=== PATIENT | female | born 1965 | race Caucasian/White ===

== ENCOUNTER 2020-02-20 18:43 | Emergency (ER) | payer BC, SELFPAY ==
[2020-02-20 18:44] VITALS: BP 153/83; PULSE 114; RESP 16; TEMP 36.2; O2SAT 99; BMI 33.3
--- NOTE | 2020-02-20 19:58 | ED.VIS.GEN ---
History of Present Illness Chief Complaint: Abscess Informant: Patient Onset: Days Context: Sudden Onset Timing: Continuous Quality: Pain, swelling and redness Location: Left axilla Current Severity: Mild Maximum Severity: Moderate Worsened by: Palpation and movement of left upper extremity Relieved by: Nothing Associated Symptoms: Pain Narrative: Patient is a 54-year-old woman. She spoke with nurse practitioner who prescribed cephalexin 5 mg twice daily. She denies history of diabetes. She denies history of prior abscess. She denies history medic fever, heart murmur, SBE, he is not immune suppressed. She has no other complaints. Prior similar symptoms: No Recent Illness/Hospitalization: No - Past Medical History (1) No significant past medical history Status: Acute Past Medical History - Allergies and Home Meds Allergies/Adverse Reactions: Allergies acetaminophen [From Vicodin] Allergy (Verified 02/20/20 18:44) Hives hydrocodone [From Vicodin] Allergy (Verified 02/20/20 18:44) Hives Primary Care Physician: Rodolfo Velásquez MD [Primary Care Provider] - Prior records reviewed: No Surgical History: noncontributory Lives: Alone Smoking Status: Former smoker Alcohol: Rare Drugs: None Review of Systems General: Denies: Chills, Fever, Malaise, Sweats Cardiovascular: Denies: Chest pain, Palpitations Respiratory: Denies: Dyspnea, Cough, Dyspnea on exertion Gastrointestinal: Denies: Nausea, Vomiting Musculoskeletal: Denies: Myalgias, Arthralgias, Neck pain, Back pain, Swelling, Extremity Pain, -, - Skin: Reports: Rash, Abscess. Denies: Abrasions, Wounds Hematologic: Denies: Easy bruising, Easy bleeding Allergy: Denies: Uticaria, Swelling of the mouth, Swelling of the tongue Physical Exam Vital Signs/Narrative: Vital Signs Temp Pulse Resp BP Pulse Ox 02/20/20 18:44 97.1 F L 114 H 16 153/83 H 99 Inital Vital Signs reviewed: Yes General: Well nourished, Well developed, Obese, No Acute Distress Head: Normocephalic, Atraumatic Eyes: Perrl, EOMI. Negative for: Pale conjunctiva, Scleral icterus Neck: Supple, Nontender, No lymphadenopathy, No JVD Cardiovascular: Regular rhythm, No murmurs, Normal S1, Normal S2, Tachycardia Respiratory: No distress, CTA bilaterally, Chest nontender Extremities: Nontender, No edema, - - There is evidence of cellulitis with abscess left axilla. There is involvement of the tail of the breast. Skin: Normal color, Rash. Negative for: Cyanosis, Diaphoresis Neurological: Alert, Oriented x3, Cranial nerves II-XII grossly intact, Normal Strength, Normal Sensation Psychological: Normal affect Diagnostic/Tx/Re-eval - Medical Decision Making Patient has abscess with cellulitis of the left axilla. Suspect MRSA. Patient was informed this benefits of I&D. She did consent. Area was prepped draped sterile manner. The area was [employer] by local patrician field block. After 15 minutes past she was assessed for effectiveness of block. She had no sensation to needle prick. Incision was made with a 10 blade. Incision is 2.5 cm in length. There are pockets of pus consistent with staph infection. Diameter of cavity 5 cm. The cavity was irrigated. A wick was placed. Bactrim was prescribed. She was instructed to continue taking the cephalexin. She was instructed to see her primary care doctor for wound check on Sunday. Procedures Procedure(s): I&D of left axillary abscess ED Disposition - Plan for ED Patient: Disposition: Home or Assisted Living Diagnosis: cellulitis absces left axilla Instructions: ED Abscess Incision And Drainage, ED Cellulitis Prescriptions: Smz/Tmp Ds [Bactrim Ds] 1 tab PO BID #14 tab Prescription Printed Referrals: Rodolfo Velásquez MD [Primary Care Provider] - 2 Days for wound check
[2020-02-20] MEDS: Smz/Tmp Ds Tablet 1 TABLET PO (20:16)
[2020-02-20] MEDS: Naproxen 250 MG Tablet 500 MG PO (20:16)
[2020-02-20 20:35] VITALS: BP 140/80; PULSE 70; RESP 16; O2SAT 98
== END 2020-02-20 20:36 | disposition home or self-care (01) ==
PROVIDERS: Emergency Provider Emergency Medicine; PCP Family Medicine
DX: L02.412 Cutaneous abscess of left axilla (principal); L03.112 Cellulitis of left axilla; E66.9 Obesity, unspecified; Z79.2 Long term (current) use of antibiotics; Z87.891 Personal history of nicotine dependence
CPT/HCPCS: 10060; 99282

== ENCOUNTER 2020-05-26 03:32 | Inpatient (IN) | payer BC, SELFPAY ==
[2020-05-26] VITALS (14 sets, daily range): BP systolic 113–173; BP diastolic 53–69; PULSE 88–105; RESP 16–31; TEMP 36.6–37.8; O2SAT 83–96; BMI 31.6; BMI 31.3
--- NOTE | 2020-05-26 03:41 | EKG12_ITS ---
Test Reason : GEN ILLNESS Blood Pressure : / mmHG Vent. Rate : 104 BPM Atrial Rate : 104 BPM P-R Int : 138 ms QRS Dur : 070 ms QT Int : 320 ms P-R-T Axes : 069 025 059 degrees QTc Int : 420 ms Sinus tachycardia Low voltage QRS Borderline ECG Confirmed by LESTER CAICEDO, YELITZA ([id number]), scientific publications editor JAZMYNE JEFF ([id number]) on 06/02/2020 10:28:03 AM Referred By: MATHEW Confirmed By:ROBER BATISTA MD
--- NOTE | 2020-05-26 03:41 | RAD_ITS ---
STUDY: X-RAY CHEST REASON FOR EXAM: Female, 55 years old. Covid positive infection 05/22/2012. Cough with deep inspiration. TECHNIQUE: AP portable chest. COMPARISON: None. FINDINGS: Patchy bilateral perihilar and bibasilar opacities. No effusions. No pneumothorax. Normal size heart. Normal mediastinum and lillie. Normal visualized pulmonary arteries. Normal visualized aortic arch and descending thoracic aorta. Normal visualized thoracic spine. Normal visualized ribs, clavicles, and shoulders. There is no demonstrated abnormality of the visualized soft tissue structures of the upper abdomen. RAD/Chest 1 View (Portable) IMPRESSION: Multifocal pneumonia to include viral pneumonia. Electronically Signed: Forrest Cee MD at 4:28 EST , Service support ,
--- NOTE | 2020-05-26 03:44 | ED.DCSUM_ITS ---
History of Present Illness Chief Complaint: General Illness Detail of Chief Complaint: Dehydration Informant: Patient Onset: Days Narrative: Patient presents due to concerns for dehydration. She developed Covid symptoms on the 10th and had a positive test on the . Patient reports having very dry mouth. Anytime she tries to eat she gets nauseated and vomits. She notes her urine is very dark. She has lost smell and taste. She has been running fevers up to 103. On arrival to the emergency room her O2 sat was 83% on room air. In spite of this patient had not been complaining of significant shortness of breath. She reports only minimal cough. - Past Medical History (1) GERD (gastroesophageal reflux disease) Status: Chronic Past Medical History - Allergies and Home Meds Allergies/Adverse Reactions: Allergies acetaminophen [From Vicodin] Allergy (Verified 05/26/20 03:39) Hives hydrocodone [From Vicodin] Allergy (Verified 05/26/20 03:39) Hives Primary Care Physician: Rodolfo Velásquez MD [Primary Care Provider] - Prior records reviewed: Yes Surgical History: noncontributory Lives: Spouse/ Significant Other Smoking Status: Former smoker Review of Systems General: Reports: Fever Eyes: Denies: Visual changes - bilaterally ENT: Reports: - - Dry mouth Cardiovascular: Denies: Chest pain Respiratory: Reports: Cough - Minimal cough Gastrointestinal: Reports: Nausea, Vomiting. Denies: Diarrhea Genitourinary: Reports: - - Dark, concentrated urine. Denies: Dysuria Musculoskeletal: Reports: Myalgias Skin: Denies: Rash Neurological: Denies: Headache Hematologic: Denies: Easy bruising, Easy bleeding Allergy: Denies: Uticaria Physical Exam Vital Signs/Narrative: Vital Signs Temp Pulse Resp BP Pulse Ox 05/26/20 03:37 91 05/26/20 03:33 98.7 F 105 H 22 H 173/60 H 83 Inital Vital Signs reviewed: Yes General: Well nourished, Well developed Head: Normocephalic ENT: No rhinorrhea Cardiovascular: Regular rate, Regular rhythm Respiratory: No distress, CTA bilaterally Abdomen: Soft, Nontender, Normal bowel sounds Extremities: Nontender Skin: Normal color Neurological: Alert, Oriented x3 Psychological: Normal affect Diagnostic/Tx/Re-eval Chest X-Ray - ED: 1 View, Read by ED Physician, Right Infiltrate, Left Infiltrate Impressions Chest X-Ray 05/26/20 03:41 IMPRESSION: Multifocal pneumonia to include viral pneumonia. Electronically Signed: Forrest Cee MD at 4:28 EST , Service support , Chest CTA 05/26/20 04:23 IMPRESSION: No pulmonary embolus or thoracic aortic dissection. Diffuse groundglass opacities compatible with multifocal pneumonia very suggestive of viral pneumonia. Multiple small mediastinal lymph nodes. Electronically Signed: Forrest Cee MD at 5:18 EST , Service support , 05/26/20 03:41 Chest 1 View (Portable) [RAD] Stat 05/26/20 04:23 CTA Chest W/WO Contrast [CT] Stat Laboratory Results 05/26/20 05/26/20 05/26/20 03:48 03:48 03:48 WBC 4.6 RBC 5.31 Hgb 15.0 Hct 44.1 MCV 83.1 MCH 28.2 MCHC 34.0 RDW Std Deviation 37.9 RDW Coeff of Osorio 12.5 Plt Count 153 MPV 11.4 Immature Gran % (Auto) 0.700 Neut % (Auto) 78.7 H Lymph % (Auto) 15.8 L [place] % (Auto) 4.6 Eos % (Auto) 0.0 Baso % (Auto) 0.2 Absolute Neuts (auto) 3.6 Absolute Lymphs (auto) 0.73 L Nucleated RBC % 0 D-Dimer Quant (PE/DVT) 0.91 H* Sodium 125 L Potassium 3.5 Chloride 84 L Carbon Dioxide 26.0 Anion Gap 15 BUN 14 Creatinine 0.93 Estim Creat Clear Calc 62.23 Est GFR (MDRD) Af Amer 81 Est GFR (MDRD) Non-Af 67 BUN/Creatinine Ratio 15.1 Glucose 395 H Lactic Acid Calcium 8.7 Total Bilirubin 1.00 AST 179 H ALT 115 H Alkaline Phosphatase 140 H Total Protein 8.1 Albumin 3.4 Globulin 4.7 H Albumin/Globulin Ratio 0.7 L Procalcitonin 05/26/20 05/26/20 03:48 03:48 WBC RBC Hgb Hct MCV MCH MCHC RDW Std Deviation RDW Coeff of Osorio Plt Count MPV Immature Gran % (Auto) Neut % (Auto) Lymph % (Auto) [place] % (Auto) Eos % (Auto) Baso % (Auto) Absolute Neuts (auto) Absolute Lymphs (auto) Nucleated RBC % D-Dimer Quant (PE/DVT) Sodium Potassium Chloride Carbon Dioxide Anion Gap BUN Creatinine Estim Creat Clear Calc Est GFR (MDRD) Af Amer Est GFR (MDRD) Non-Af BUN/Creatinine Ratio Glucose Lactic Acid 2.8 H* Calcium Total Bilirubin AST ALT Alkaline Phosphatase Total Protein Albumin Globulin Albumin/Globulin Ratio Procalcitonin 0.19 H - EKG Initial EKG Interpretation: Sinus Tachycardia - Sinus tachycardia at 104. No acute ischemia. - Medical Decision Making Patient was placed on nasal cannula on arrival. At this time O2 sat is 93% on 6 L. Patient reports very minimal dyspnea. Patient was given 6 mg of IV Decadron on arrival. Test results are discussed with her. Patient is hyperglycemic with a blood glucose of 395. She is not a known diabetic. Hemoglobin A1c has been added and is pending at this time. Sodium level is low at 125, however when corrected for glucose sodium is 132. She does have evidence of transaminitis. Procalcitonin level is elevated. Patient will be discussed with hospitalist for admission. ED Disposition - Plan for ED Patient: Disposition: Acute Care Hospital [facility] Diagnosis: Pneumonia due to COVID-19 virus, Respiratory insufficiency Referrals: Rodolfo Velásquez MD [Primary Care Provider] -
[2020-05-26] MEDS: dexAMETHasone 10 MG/ML Vial 6 MG IV (03:54)
[2020-05-26 03:59] LABS: Absolute Lymphocyte Count 0.73 X10^3/uL (0.83-4.51); Absolute Neutrophil Count 3.6 X10^3/uL (2.0-7.7); Basophil# 0.01 X10^3/uL; Basophil% 0.2 % (0-1); Hematocrit 44.1 % (37-47); Lymphocyte # 0.73 X10^3/ul (4.0); Lymphocyte % 15.8 % (19-41); Mean Corpuscular Hgb 28.2 pg (27.0-32.0); Mean Corpuscular Volume 83.1 fL (81-99); Mean Platelet Vol. 11.4 fl (6.2-12.0); Monocyte# 0.21 X10^3/uL; Monocyte% 4.6 % (0-10); NRBC Flagged by Analyzer 0 % (0-5); Neutrophil # 3.63 X10^3/uL (2.7-7.7); Neutrophil % 78.7 % (47-70); Platelet Count 153 K/mm3 (150-450); RBC Distribution Width CV 12.5 % (11.6-14.6); RBC Distribution Width SD 37.9 fl (35.1-43.9); Red Blood Count 5.31 M/mm3 (4.2-5.4); White Blood Count 4.6 K/mm3 (4.4-11.0)
[2020-05-26 04:11] LABS: D-Dimer Quantitative (DVT/PE) 0.91 FEU/ug/m (0.27-0.49)
[2020-05-26 04:21] LABS: ALB/GLOB Ratio 0.7 RATIO (0.9-2.4); AST(SGOT) 179 U/L (15-37); Alanine Aminotransfer ALT/SGPT 115 U/L (13-56); Albumin, Serum 3.4 g/dL (3.2-5.0); Alkaline Phosphatase 140 U/L (45-117); Anion Gap 15 (5-15); BUN 14 mg/dL (7-18); BUN/Creat Ratio 15.1 RATIO (10-20); Calcium,Total 8.7 mg/dL (8.5-10.1); Chloride 84 mmol/L (98-107); Creatinine, Serum 0.93 mg/dL (0.55-1.02); EST Glomerular Filtration Rate 67 mL/min (>60); Est Glom Filt Rate - Afr Amer 81 mL/min (>60); Estimated Creatinine Clearance 62.23 ml/min; Globulin 4.7 g/dL (2.2-4.2); Glucose 395 mg/dL (74-106); Potassium 3.5 mmol/L (3.5-5.1); Protein, Total 8.1 g/dL (6.4-8.2); Sodium Level 125 mmol/L (136-145)
--- NOTE | 2020-05-26 04:23 | CT_ITS ---
STUDY: CTA CHEST REASON FOR EXAM: Female, 55 years old. Covid positive, cough, shortness of breath, elevated d-dimer. RADIATION DOSAGE (If Supplied By Facility): CTDIvol = ( 11.00 ) mGy, DLP = ( 484.95 ) mGycm TECHNIQUE: The examination was performed with the intravenous administration of IV 100mL Isovue-300. Post-processing of the angiographic images was performed, with multiplanar reformation and 3D reconstruction. Individualized dose optimization techniques were used for this CT. COMPARISON: Chest x-ray May 26, 2020. FINDINGS: Normal enhancement of the main pulmonary artery and right and left pulmonary arteries. Normal enhancement of the bilateral peripheral pulmonary arteries. There is no demonstrated pulmonary embolism. Normal thoracic aorta and visualized great vessels. There is no demonstrated aortic dissection. Borderline cardiomegaly. Coronary artery calcifications. No pericardial effusion. Multiple small mediastinal lymph nodes largest measuring 1.2 cm. Normal hilar regions. Normal visualized trachea and bronchi. Diffuse primarily peripheral groundglass opacities bilaterally. No effusions. No pneumothorax. Normal chest wall structures. Normal osseous structures. Normal visualized upper abdomen. CT/CTA Chest W/WO Contrast IMPRESSION: No pulmonary embolus or thoracic aortic dissection. Diffuse groundglass opacities compatible with multifocal pneumonia very suggestive of viral pneumonia. Multiple small mediastinal lymph nodes. Electronically Signed: Forrest Cee MD at 5:18 EST , Service support ,
[2020-05-26 04:27] LABS: Procalcitonin 0.19 ng/mL (0.00-0.09)
[2020-05-26 04:32] LABS: Lactic Acid 2.8 mmol/L (0.4-1.9)
--- NOTE | 2020-05-26 05:35 | HP.PCM_ITS ---
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 Patient felt dehydrated so he came to emergency department. She has lost of taste and she has only been drinking punch. She is unsure whether she has lost of smell. She reports cold-like symptoms that started on , 05/20/2020. Her cold- like symptoms includes muscle aches; and headaches. Next day 05/21/2020 patient developed a fever. Temperature at home was 103 Fahrenheit. She reports chills and rigors. She reports fatigue and weakness. Further she has back pain that she attributes to laying on her bed for about 5 days. She denies shortness of breath. She reports coughing. She attributes her cough to dry mouth which also causes her to vomit. She denies nausea. Past Medical History Past Medical History (Chronic Problems): Chronic Problems (This Medical Record has been edited. Action required.) GERD (gastroesophageal reflux disease) (Chronic) Allergies acetaminophen [From Vicodin] Allergy (Verified 05/26/20 03:39) Hives hydrocodone [From Vicodin] Allergy (Verified 05/26/20 03:39) Hives Home Medications: Ambulatory Orders Medication Instructions Recorded NK 05/26/20 Surgical History: - - Surgery for carpal tunnel surgery Lives: Spouse/ Significant Other Smoking Status: Former smoker - *Family History Maternal History Items: Diabetes, Heart Disease, Renal Disease Paternal History Items: Cancer - His father had vocal cord cancer Review of Systems Constitutional: Reports: Anorexia, Chills, Fever, Malaise, Weakness, Fatigue. Denies: Weight Change HEENT: Reports: Head Aches. Denies: Sinus Congestion, Sinus Drainage Cardiovascular: Denies: Chest Pain, Palpitations Respiratory: Reports: Cough. Denies: Shortness of breath at rest, Sputum production Gastrointestinal: Reports: Vomiting. Denies: Abdominal Pain, Nausea Genitourinary: Denies: Dysuria Musculoskeletal: Denies: Joint Pain, Joint Tenderness Skin: Denies: Rash, Wounds Neurological: Denies: Numbness, Tingling, Focal weakness Psychiatric: Denies: Anxiety, Depression, Homicidal Ideations, Suicidal Ideat ions Hematologic/ Lymphatic: Denies: Easy Bruising, Easy Bleeding VTE Information - Inpt Only VTE Present on Admission: No VTE Mechan Device Prophylaxis: None VTE Pharm Prophylaxis ordered?: Yes Patient Problems: Active and Suspected Problems (This Medical Record has been edited. Action required.) Pneumonia due to COVID-19 virus (Acute) Respiratory insufficiency (Acute) SARS (severe acute respiratory syndrome) (Acute) - Physical Exam Vitals/I&O's: Vital Signs Temp Pulse Resp BP Pulse Ox 98.3 F 104 H 30 H 113/64 93 05/26/20 05:18 05/26/20 05:18 05/26/20 05:18 05/26/20 05:18 05/26/20 05:18 Oxygen Flow Rate (L/min) 6 Oxygen Delivery Method Nasal Cannula Weight: 86.2 kg Body Mass Index (BMI) 31.6 Intake and Output for Last 24 Hours 05/24/20 05/25/20 05/26/20 23:59 23:59 23:59 Intake Total 416.25 / 416.25 Balance 416.25 / 416.25 General: Alert, Oriented x3, Cooperative HEENT: Atraumatic, PERRLA, EOMI, Normocephalic Neck: Supple, No JVD, Negative Carotid Bruits Lungs: No rhonchi, No wheeze, Rales, Tachypneic Cardiovascular: Normal S1, Normal S2, No murmurs, Tachycardic Abdomen: Bowel Sounds Present, Soft, Non Tender Extremities: No edema, Capillary Refill Less than 3 Seconds Skin: No rashes, No breakdown Musculoskeletal: No Tenderness to Palpation of Joints or Extremities Neurological: Cranial nerves II-XII grossly intact Psych/Mental Status: Normal Affect, Appropriate Laboratory Results 05/26/20 03:48: WBC 4.6, RBC 5.31, Hgb 15.0, Hct 44.1, MCV 83.1, MCH 28.2, MCHC 34.0, RDW Std Deviation 37.9, RDW Coeff of Osorio 12.5, Plt Count 153, MPV 11.4, Immature Gran % (Auto) 0.700, Neut % (Auto) 78.7 H, Lymph % (Auto) 15.8 L, [place] % (Auto) 4.6, Eos % (Auto) 0.0, Baso % (Auto) 0.2, Absolute Neuts (auto) 3.6, Absolute Lymphs (auto) 0.73 L, Nucleated RBC % 0 05/26/20 03:48: D-Dimer Quant (PE/DVT) 0.91 H* 05/26/20 03:48: Sodium 125 L, Potassium 3.5, Chloride 84 L, Carbon Dioxide 26.0, Anion Gap 15, BUN 14, Creatinine 0.93, Estim Creat Clear Calc 62.23, Est GFR (MDRD) Af Amer 81, Est GFR (MDRD) Non-Af 67, BUN/Creatinine Ratio 15.1, Glucose 395 H, Calcium 8.7, Total Bilirubin 1.00, AST 179 H, ALT 115 H, Alkaline Phosphatase 140 H, Total Protein 8.1, Albumin 3.4, Globulin 4.7 H, Albumin/Globulin Ratio 0.7 L 05/26/20 03:48: Lactic Acid 2.8 H* 05/26/20 03:48: Procalcitonin 0.19 H 05/26/20 03:48: Hemoglobin A1c Pending Assessment/Plan All Active Problems (This Medical Record has been edited. 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 Acute hypoxemic respiratory insufficiency secondary to SARS- COV 2 Reportedly her oxygen saturation was 83% on room air at the emergency department. Patient required 6 L of nasal cannula oxygen. Oxygen supplementation continued. Positive coronavirus test outpatient. Impression of chest x-ray by radiologist: Multifocal pneumonia to include viral pneumonia. Actual chest x-ray image was independently interpreted. I agree radiologist interpretation. Dimer was elevated at 0.91. Follow-up chest CTA showed no pulmonary embolism or thoracic aortic dissection. Diffuse groundglass opacities compatible with multifocal pneumonia very suggestive of viral pneumonia was noted. Also patient had multiple small mediastinal lymph nodes. Procalcitonin was mildly elevated. Received dexamethasone IV at emergency department. Discussed with patient that dexamethasone p.o. will be ordered and also she will be started on remdesivir. Her liver enzyme is mildly elevated. Discussed adverse effects of medication with patient. Patient was notified that if her liver enzymes significantly increase her remdesivir will be discontinued. Tylenol for fever Hyperglycemia His blood glucose was 395 on BMP. Discussed with emergent department doctor to get Accu-Cheks. Reportedly his Accu-Chek at emergency department was 377. He reports a family history of diabetes. A1c was obtained at emergency department; follow. With Decadron anticipate that her blood glucose will i ncrease. Will start patient on basal and correction scale insulin. Accu-Chek QA CHS. Consistent carb calorie controlled diet ordered. Hyponatremia Sodium on presentation was 125. Glucose 305. Corrected sodium is 130. Received IV fluids at emergency department. Treat hyperglycemia as above. Trend BMP. BUN is 14; blood pressure is normal; not overly dehydrated. Elevated liver enzymes Likely secondary to Covid. We will check lipid panel. Lactic acidosis Likely secondary to Covid Trend. Received normal saline bolus at emergency department. Cautious use of fluid in the setting of Covid. DVT prophylaxis Subcutaneous Lovenox. Inpatient E&M: [id number] Init Hosp L3
[2020-05-26 05:44] LABS: Hemoglobin A1c 10.8 % (3.8-5.6)
[2020-05-26 05:46] LABS: Bedside Glucose 377 mg/dL (70-110)
[2020-05-26] MEDS: Insulin Lispro 100 UNIT/ML INSULN.PEN SC ×3 (06:36→21:23)
[2020-05-26 07:06] LABS: Bedside Glucose 364 mg/dL (70-110)
[2020-05-26] MEDS: 0.9% Saline Lock 10 ML Syringe IV (07:32)
--- NOTE | 2020-05-26 07:34 | PCM.PN.BLA ---
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 Patient was found to be hypoxic on admission with oxygen saturation 83% on room air. CT of the chest obtained on admission demonstrated Diffuse groundglass opacities compatible with multifocal pneumonia very suggestive of viral pneumonia was noted. Also patient had multiple small mediastinal lymph nodes. Patient was also found to have mild transaminitis admitted to the Covid unit for subsequent management GENERAL: cooperative HEENT: Atraumatic; EYES; Anicteric, Normal Conjunctiva NECK; supple, normal thyroid, RESPIRATORY: Diminished to auscultation CARDIOVASCULAR: Regular S1 S2, GI: soft, normoactive bowel sounds, : No Renal angle tenderness; EXTREMITIES: No edema, no clubbing, MUSCULOSKELETAL: no muscle waisting NEURO: Awake; no lateralizing signs. SKIN: No Rash PSYCH; Flat affect Assessment Acute hypoxic respiratory insufficiency secondary to COVID-19 pneumonitis -CT of the chest obtained on admission demonstrated Diffuse groundglass opacities compatible with multifocal pneumonia very suggestive of viral pneumonia was noted. Also patient had multiple small mediastinal lymph nodes. Patient was also found to have mild transaminitis admitted to the Covid unit for subsequent management. Patient was placed on supplemental oxygen and Decadron as well as remdesivir. Patient remdesivir held in view of her elevated liver function test. Consult placed to both pulmonary medicine as well as infectious disease 2. Hyperglycemia ?Patient not a known diabetic however hemoglobin A1c on admission was 10.8 consistent with newly diagnosed diabetes mellitus type 2. Patient was placed on long-acting insulin in addition to Accu-Cheks before meals and at bedtime with sliding scale coverage consultation placed to diabetic education and dietitian 3. Hyponatremia ?Secondary to combination of hypovolemic hyponatremia as well as hyperglycemia on IV fluid with subsequent monitoring of electrolyte 4. Transaminitis ?Secondary to COVID-19 infection. Monitoring daily liver function 5. Obesity with BMI of 31.3 ?Weight loss advised 6. GERD -Placed on famotidine 1. DVT prophylaxis ?Lovenox 40 mg SC every 12 Q12 STROKE Vital Signs/Narrative: Vital Signs Temp Pulse Resp BP Pulse Ox 05/26/20 06:33 93 05/26/20 06:32 99.4 F H 95 18 126/67 H 93 05/26/20 05:58 98.3 F 101 H 26 H 122/63 H 91 05/26/20 05:18 98.3 F 104 H 30 H 113/64 93 05/26/20 04:18 98.5 F 102 H 28 H 124/67 H 93 05/26/20 03:57 104 H 31 H 92 05/26/20 03:37 91
[2020-05-26 07:54] LABS: Reflex Lactate? Y
--- NOTE | 2020-05-26 08:06 | CON.PCM_ITS ---
Reason for Consult Date of Consultation: 05/26/20 Reason for Consultation: Acute hypoxemic respiratory failure secondary to COVID- 19 pneumonia History of Present Illness: The patient is a 55-year-old female, with a history as outlined below, who presented to the emergency department on May 26 with complaints of fevers, chills, nausea, vomiting, malaise and loss of taste/smell. The patient reported that her symptoms initially began 6 days ago. 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 She apparently tested positive herself for coronavirus on the . On presentation to the emergency department, the patient was noted to be afebrile and hypertensive. She was initially saturating 83% on room air. Laboratory evaluation revealed no evidence of a leukocytosis. D-dimer was noted to be 0.91. Chemistry profile was notable for a sodium of 125 and chloride of 84. Lactate was elevated to 2.8. AST and ALT were increased to 179 and 115, respectively. Procalcitonin was mildly elevated to 0.19. CTA chest showed no evidence for pulmonary embolism. Diffuse bilateral groundglass changes were noted. The patient was started on Decadron and remdesivir. She was subsequently admitted to the coronavirus cohort unit for further management. Past Medical History Past Medical History (Chronic Problems): Chronic Problems (This Medical Record has been edited. Action required.) GERD (gastroesophageal reflux disease) (Chronic) Allergies acetaminophen [From Vicodin] Allergy (Verified 05/26/20 03:39) Hives hydrocodone [From Vicodin] Allergy (Verified 05/26/20 03:39) Hives Home Medications: Ambulatory Orders Medication Instructions Recorded NK 05/26/20 Surgical History: - - Surgery for carpal tunnel surgery Lives: Spouse/ Significant Other Smoking Status: Former smoker - *Family History Maternal History Items: Diabetes, Heart Disease, Renal Disease Paternal History Items: Cancer - His father had vocal cord cancer Review of Systems Constitutional: Reports: Chills, Fever, Malaise, Fatigue Eyes: Denies: Blurred vision, Double vision HEENT: Denies: Head Aches, Sinus Congestion, Sinus Drainage Cardiovascular: Denies: Chest Pain, Palpitations Respiratory: Reports: Cough, Shortness of Breath Gastrointestinal: Reports: Nausea Genitourinary: Denies: Dysuria Musculoskeletal: Denies: Joint Pain, Joint Tenderness Skin: Denies: Rash, Wounds Neurological: Denies: Numbness, Tingling, Focal weakness Psychiatric: Denies: Anxiety, Depression, Homicidal Ideations, Suicidal Ideations Hematologic/ Lymphatic: Denies: Easy Bruising, Easy Bleeding Patient Problems: Active and Suspected Problems (This Medical Record has been edited. Action required.) Pneumonia due to COVID-19 virus (Acute) Respiratory insufficiency (Acute) SARS (severe acute respiratory syndrome) (Acute) Objective: The patient's most recent lab work, culture data and imaging studies have all been personally reviewed. Coronavirus testing was noted to be positive on the . - Physical Exam Vitals/I&O's: Vital Signs Temp Pulse Resp BP Pulse Ox 99.4 F H 95 18 126/67 H 93 05/26/20 06:32 05/26/20 06:32 05/26/20 06:32 05/26/20 06:32 05/26/20 06:33 Oxygen Flow Rate (L/min) 10 Oxygen Delivery Method Nasal Cannula Weight: 188 lb 4.396 oz Body Mass Index (BMI) 31.3 Finger Stick Blood Glucose 377 Intake and Output for Last 24 Hours 05/24/20 05/25/20 05/26/20 23:59 23:59 23:59 Intake Total 416.75 / 416.75 Balance 416.75 / 416.75 General: Alert, Oriented x3, Cooperative, No apparent distress HEENT: Atraumatic, PERRLA, Normocephalic Oral: No Gingival or Mucosal Lesions/ Ulcerations Neck: Supple, No Nodes, Trachea Midline Lungs: No rhonchi, No wheeze, No rales, Diminished Cardiovascular: Regular rate, Regular Rhythm Abdomen: Bowel Sounds Present, Soft, Non Tender, Obese Extremities: No clubbing, No cyanosis, No edema Skin: No breakdown Musculoskeletal: No Tenderness to Palpation of Joints or Extremities, No Muscle Wasting Lymphatic: No Cervical, Supraclavicular, or Inguinal Adenopathy Neurological: Cranial nerves II-XII grossly intact, Neuro grossly intact Psych/Mental Status: Alert and oriented to time, place, person, mood and affect Labs (Last 48 Hours) 05/26/20 05/26/20 05/26/20 03:48 03:48 03:48 WBC 4.6 RBC 5.31 Hgb 15.0 Hct 44.1 MCV 83.1 MCH 28.2 MCHC 34.0 RDW Std Deviation 37.9 RDW Coeff of Osorio 12.5 Plt Count 153 MPV 11.4 Immature Gran % (Auto) 0.700 Neut % (Auto) 78.7 H Lymph % (Auto) 15.8 L [place] % (Auto) 4.6 Eos % (Auto) 0.0 Baso % (Auto) 0.2 Absolute Neuts (auto) 3.6 Absolute Lymphs (auto) 0.73 L Nucleated RBC % 0 D-Dimer Quant (PE/DVT) 0.91 H* Sodium 125 L Potassium 3.5 Chloride 84 L Carbon Dioxide 26.0 Anion Gap 15 BUN 14 Creatinine 0.93 Estim Creat Clear Calc 62.23 Est GFR (MDRD) Af Amer 81 Est GFR (MDRD) Non-Af 67 BUN/Creatinine Ratio 15.1 Glucose 395 H Hemoglobin A1c Lactic Acid Calcium 8.7 Total Bilirubin 1.00 AST 179 H ALT 115 H Alkaline Phosphatase 140 H Total Protein 8.1 Albumin 3.4 Globulin 4.7 H Albumin/Globulin Ratio 0.7 L Procalcitonin POC Glucose 05/26/20 05/26/20 05/26/20 03:48 03:48 03:48 WBC RBC Hgb Hct MCV MCH MCHC RDW Std Deviation RDW Coeff of Osorio Plt Count MPV Immature Gran % (Auto) Neut % (Auto) Lymph % (Auto) [place] % (Auto) Eos % (Auto) Baso % (Auto) Absolute Neuts (auto) Absolute Lymphs (auto) Nucleated RBC % D-Dimer Quant (PE/DVT) Sodium Potassium Chloride Carbon Dioxide Anion Gap BUN Creatinine Estim Creat Clear Calc Est GFR (MDRD) Af Amer Est GFR (MDRD) Non-Af BUN/Creatinine Ratio Glucose Hemoglobin A1c 10.8 H Lactic Acid 2.8 H* Calcium Total Bilirubin AST ALT Alkaline Phosphatase Total Protein Albumin Globulin Albumin/Globulin Ratio Procalcitonin 0.19 H POC Glucose 05/26/20 05/26/20 05:42 06:18 WBC RBC Hgb Hct MCV MCH MCHC RDW Std Deviation RDW Coeff of Osorio Plt Count MPV Immature Gran % (Auto) Neut % (Auto) Lymph % (Auto) [place] % (Auto) Eos % (Auto) Baso % (Auto) Absolute Neuts (auto) Absolute Lymphs (auto) Nucleated RBC % D-Dimer Quant (PE/DVT) Sodium Potassium Chloride Carbon Dioxide Anion Gap BUN Creatinine Estim Creat Clear Calc Est GFR (MDRD) Af Amer Est GFR (MDRD) Non-Af BUN/Creatinine Ratio Glucose Hemoglobin A1c Lactic Acid Calcium Total Bilirubin AST ALT Alkaline Phosphatase Total Protein Albumin Globulin Albumin/Globulin Ratio Procalcitonin POC Glucose 377 H 364 H Clinical Impression(s) from Imaging Studies Chest X-Ray 05/26/20 03:41 IMPRESSION: Multifocal pneumonia to include viral pneumonia. Electronically Signed: Forrest Cee MD at 4:28 EST , Service support , Chest CTA 05/26/20 04:23 IMPRESSION: No pulmonary embolus or thoracic aortic dissection. Diffuse groundglass opacities compatible with multifocal pneumonia very suggestive of viral pneumonia. Multiple small mediastinal lymph nodes. Electronically Signed: Forrest Cee MD at 5:18 EST , Service support , Current Medications Acetaminophen (Acetaminophen 325 Mg Tablet) 650 mg PO Q6H PRN PRN PRN Reason: Pain Score 1-10/Temp > 100.7 F Dexamethasone (Dexamethasone 4 Mg Tablet) 6 mg PO DAILY@0800 OLLIE Dextrose (Dextrose 50%-Water 25 Gm/50 Ml Disp.Syrin) 0 gm IV X1 PRN; Protocol PRN Reason: Hypoglycemia Enoxaparin Sodium (Enoxaparin 30 Mg/0.3 Ml Syringe) 30 mg SC BID OLLIE Glucagon (Glucagon 1 Mg/Ml Syringe) 1 mg IM .X1 PRN PRN Reason: Hypoglycemia Remdesivir 100 mg/ Sodium (Chloride) 250 mls @ 125 mls/hr IV DAILY OLLIE Stop: 05/30/20 11:59 Remdesivir 200 mg/ Sodium (Chloride) 250 mls @ 125 mls/hr IV X1 ONE Stop: 05/26/20 08:59 Last Admin: 05/26/20 07:31 Dose: 125 mls/hr Documented by: Sodium Chloride () 250 mls @ 15 mls/hr IV .[id number] PRN PRN Reason: Saline Flush Last Infusion: 05/26/20 07:33 Dose: 0 mls/hr Documented by: Sodium Chloride () 250 mls @ 15 mls/hr IV .[id number] PRN PRN Reason: Additional IVPB Infusion Insulin Glargine (Insulin Glargine 100 Units/Ml Pen) 14 units SC BREAKFAST OLLIE Insulin Human Lispro (Insulin Lispro 100 Unit/Ml Insuln.Pen) 0 unit SC ACHS OLLIE; Protocol Last Admin: 05/26/20 06:36 Dose: 6 u Documented by: Melatonin (Melatonin 3 Mg Tablet) 3 mg PO QHS PRN PRN PRN Reason: INSOMNIA Ondansetron HCl (Ondansetron 4 Mg/2 Ml Vial) 4 mg IV Q8H PRN PRN PRN Reason: NAUSEA/VOMITING Sodium Chloride (0.9% Saline Lock 10 Ml Syringe) 10 - 40 ml IV UD PRN PRN Reason: SALINE FLUSH Last Admin: 05/26/20 07:32 Dose: 10 ml Documented by: Assessment/Plan All Active Problems (This Medical Record has been edited. Action required.) Pneumonia due to COVID-19 virus (Acute) Respiratory insufficiency (Acute) SARS (severe acute respiratory syndrome) (Acute) RECOMMENDATIONS: 1. Wean supplemental oxygen to maintain saturations at or above 90%. 2. Continue Decadron and remdesivir as ordered. 3. Monitor liver and renal function closely. 4. Encourage incentive spirometer use and mobilize patient as tolerated. IMPRESSIONS: 1. Acute hypoxemic respiratory failure secondary to COVID-19 pneumonia Continue current supportive measures and wean supplemental oxygen to maintain saturations at or above 90%. Continue Decadron and remdesivir as ordered. Monitor liver and renal function accordingly. Encourage incentive spirometer use and mobilize patient as tolerated. 2. Poorly controlled diabetes mellitus Continue Lantus and sliding scale insulin coverage. 3. Transaminitis Potentially related to acute infection versus fatty liver disease. Continue to monitor closely in light of remdesivir utilization. 4. Obesity/GERD Complicates care, management, recovery and prognosis. This note was generated with [employer] software. It may contain incorrect words, spelling, and punctuation that were not noted in checking the note before signing. Inpatient E&M: 65790 Init Hosp L3
[2020-05-26] MEDS: Enoxaparin 30 MG/0.3 ML Syringe SC (08:23)
[2020-05-26 08:48] LABS: Lactic Acid 1.3 mmol/L (0.4-1.9)
[2020-05-26] MEDS: Insulin Lispro 100 UNIT/ML INSULN.PEN 10 UNIT SC ×2 (11:05→15:39)
--- NOTE | 2020-05-26 11:40 | CASEMGMT ---
RN JOON EXECUTIVE PILOT JOON placed call to pt's room for initial transition planning/care coordination assessment. ANNABELLE DUPREE introduced self and role at [facility]. Pt voices understanding and consents to assessment at this time.Pt is A/O at this time and answers all questions appropriately. Care providers, pharmacy, and demographics verified/updated at this time. COVID +: Testing done @ [facility] on Sat. 05/22. Has family that can get groceries, medications, and supplies. Able to quarantine in home after discharge. PCP: Dr Velásquez Specialists: None Preferred Pharmacy: [facility] Retail Insurance: [place] Prescription Benefit: Yes Living Will/HPOA: States does not have LW or HCPOA . Interested in more information. Made aware, d/t COVID precautions, AD would need to be completed after out of quarantine. Provided information on advanced directives and given Social Service rac card with number to call if chooses in the future to utilize [facility] social work for advanced directive completion. Patient expresses understanding. LNOK: , Rodolfo Living Arrangements: Lives w/her and nephew lives with them. Independent. 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 Transportation: Pt states drives self and states no transportation concerns at this time. will take her home @ discharge. DME: Has no DME. No home O2. Currently on O2 @ 13 L/M. Denies preference of DME company as long as in network/covered by insurance. HHC/SNF: No history of either and no needs identified. Pt wishes to return home and states has no concerns with going home at time of discharge. CM to follow for home oxygen needs and any further discharge planning/needs. Pt voices no further concerns/needs at this time. Advised pt to ask for CM if any further questions/concerns/needs arise. Voices understanding. PLAN: Home w/family. Recommend Home Oxygen testing prior to discharge. Follow for Home O2 needs and anti-coag @ d/c. Hgb A1C 10.8 and pt has no history of DM. Follow for possible need of glucometer or insulin @ d/c. Renea SHARP RN, CM
[2020-05-26 12:06] LABS: Bedside Glucose 478 mg/dL (70-110)
[2020-05-26 14:10] LABS: BNP,B-Type NATRIURETIC PEPTIDE 31.6 pg/mL (0-100)
[2020-05-26] MEDS: Acetaminophen 325 MG Tablet 650 MG PO ×2 (15:38→21:59)
--- NOTE | 2020-05-26 15:45 | CON.PCM_ITS ---
Problem List (1) Pneumonia due to COVID-19 virus Status: Acute Reason for Consult: covid Consulted by: Dr Glass History of Present Illness: The patient is a 55 year old F presented with sx starting 05/19 with fever, chills, cough, SOB, aches, and change in taste/smell. Lives with and nephew who are feeling fine. Came to ED, covid (+), CT showed no PE, started on remdesivir and dex. Feeling a little better today. Full ROS performed and neg except as noted above. - Medical History Past Medical History (Chronic Problems): Chronic Problems (This Medical Record has been edited. Action required.) GERD (gastroesophageal reflux disease) (Chronic) Allergies/Adverse Reactions: Allergies acetaminophen [From Vicodin] Allergy (Verified 05/26/20 03:39) Hives hydrocodone [From Vicodin] Allergy (Verified 05/26/20 03:39) Hives Home Medications: Ambulatory Orders Medication Instructions Recorded NK 05/26/20 - Social History SMOKING STATUS:: Former smoker Vital Signs Temp Pulse Resp BP Pulse Ox 97.8 F 94 16 138/63 H 95 05/26/20 15:44 05/26/20 15:44 05/26/20 15:44 05/26/20 15:44 05/26/20 15:44 Oxygen Flow Rate (L/min) 15 Oxygen Delivery Method Nasal Cannula Weight: 85.4 kg Body Mass Index (BMI) 31.3 Finger Stick Blood Glucose 377 Laboratory Tests Past 24 Hrs 05/26/20 05/26/20 05/26/20 03:48 03:48 03:48 WBC 4.6 RBC 5.31 Hgb 15.0 Hct 44.1 MCV 83.1 MCH 28.2 MCHC 34.0 RDW Std Deviation 37.9 RDW Coeff of Osorio 12.5 Plt Count 153 MPV 11.4 Immature Gran % (Auto) 0.700 Neut % (Auto) 78.7 H Lymph % (Auto) 15.8 L [place] % (Auto) 4.6 Eos % (Auto) 0.0 Baso % (Auto) 0.2 Absolute Neuts (auto) 3.6 Absolute Lymphs (auto) 0.73 L Nucleated RBC % 0 D-Dimer Quant (PE/DVT) 0.91 H* Sodium 125 L Potassium 3.5 Chloride 84 L Carbon Dioxide 26.0 Anion Gap 15 BUN 14 Creatinine 0.93 Estim Creat Clear Calc 62.23 Est GFR (MDRD) Af Amer 81 Est GFR (MDRD) Non-Af 67 BUN/Creatinine Ratio 15.1 Glucose 395 H Hemoglobin A1c Lactic Acid Calcium 8.7 Total Bilirubin 1.00 AST 179 H ALT 115 H Alkaline Phosphatase 140 H Troponin I B-Natriuretic Peptide Total Protein 8.1 Albumin 3.4 Globulin 4.7 H Albumin/Globulin Ratio 0.7 L Procalcitonin 05/26/20 05/26/20 05/26/20 03:48 03:48 03:48 WBC RBC Hgb Hct MCV MCH MCHC RDW Std Deviation RDW Coeff of Osorio Plt Count MPV Immature Gran % (Auto) Neut % (Auto) Lymph % (Auto) [place] % (Auto) Eos % (Auto) Baso % (Auto) Absolute Neuts (auto) Absolute Lymphs (auto) Nucleated RBC % D-Dimer Quant (PE/DVT) Sodium Potassium Chloride Carbon Dioxide Anion Gap BUN Creatinine Estim Creat Clear Calc Est GFR (MDRD) Af Amer Est GFR (MDRD) Non-Af BUN/Creatinine Ratio Glucose Hemoglobin A1c 10.8 H Lactic Acid 2.8 H* Calcium Total Bilirubin AST ALT Alkaline Phosphatase Troponin I B-Natriuretic Peptide Total Protein Albumin Globulin Albumin/Globulin Ratio Procalcitonin 0.19 H 05/26/20 05/26/20 05/26/20 08:14 13:40 13:40 WBC RBC Hgb Hct MCV MCH MCHC RDW Std Deviation RDW Coeff of Osorio Plt Count MPV Immature Gran % (Auto) Neut % (Auto) Lymph % (Auto) [place] % (Auto) Eos % (Auto) Baso % (Auto) Absolute Neuts (auto) Absolute Lymphs (auto) Nucleated RBC % D-Dimer Quant (PE/DVT) Sodium Potassium Chloride Carbon Dioxide Anion Gap BUN Creatinine Estim Creat Clear Calc Est GFR (MDRD) Af Amer Est GFR (MDRD) Non-Af BUN/Creatinine Ratio Glucose Hemoglobin A1c Lactic Acid 1.3 Calcium Total Bilirubin AST ALT Alkaline Phosphatase Troponin I < 0.015 B-Natriuretic Peptide 31.6 Total Protein Albumin Globulin Albumin/Globulin Ratio Procalcitonin - Other Studies Radiology: [] reviewed Other Studies: [] Route of nutrition/ use of supplements: [] Nutritional Intake: [] IV Site: [] Cuellar Catheter: [] - Physical Exam General: Alert, Oriented x3, Cooperative, No apparent distress HEENT: Atraumatic, PERRLA, EOMI Neck: Supple, No Nodes Lungs: Diminished Cardiovascular: Regular rate, Regular Rhythm Abdomen: Soft, Non Tender, Non-Distended Extremities: No edema Skin: No rashes IV Site: Peripheral, without redness Musculoskeletal: No Tenderness to Palpation of Joints or Extremities Neurological: Cranial nerves II-XII grossly intact - Assessment/Plan Antibiotics: [] Assessment/Plan: [] Active and Suspected Problems (This Medical Record has been edited. Action required.) Pneumonia due to COVID-19 virus (Acute) Respiratory insufficiency (Acute) SARS (severe acute respiratory syndrome) (Acute) covid with hypoxia - sx start 05/19. Lactate over 2. Mild rise in ALT. Pulm is seeing. D-dimer was 0.9, CT neg for PE, on lovenox 40mg bid. Cont dex, will restart remdesivir; will hold if ALT over 10x ULN. Will follow, thank you.
--- NOTE | 2020-05-26 16:00 | CHAPLAIN ---
Type of Pastoral Visit ___ Initial Visit ___ Follow-up Visit ___ On-call Visit ___ General Patient Visit ___ Spiritual Assessment ___ Family Conference ___ Bereavement ___ Rapid Response ___ Code Blue _x__ Other (describe below) Pastoral Care Referral From ___ Patient ___ Family ___ Nurse ___ Physician ___ Farm Equipment Mechanic ___ Youth Manager ___ Other (describe below) Sacrament/Intervention _x__ Active listening ___ Anointing ___ Scientologist ___ Bereavement ___ Communion ___ Jennifer exploration ___ ___ Life review ___ Prayer ___ Reconciliation ___ Sacrament of Sick ___ Supportive presence ___ Wedding _x__ Other (describe below) Pastoral Comments phone call into patient room for support; pt voice sounds strong and she presents with positive attitude; pt states goal is to eat and then sleep; no other concerns; pt is appreciative of the call
[2020-05-26 16:06] LABS: Bedside Glucose 404 mg/dL (70-110)
[2020-05-26] MEDS: Enoxaparin 40 MG/0.4 ML Syringe SC (21:24)
[2020-05-26 22:36] LABS: Bedside Glucose 341 mg/dL (70-110)
[2020-05-27] VITALS (9 sets, daily range): BP systolic 105–122; BP diastolic 52–72; PULSE 83–99; RESP 16–20; TEMP 37–37.7; O2SAT 86–100
[2020-05-27 06:11] LABS: Hematocrit 46.4 % (37-47); Hemoglobin 15.5 g/dL (12.0-15.0); Mean Corp Hgb Conc 33.4 g/dL (32-36); Mean Corpuscular Hgb 28.8 pg (27.0-32.0); Mean Corpuscular Volume 86.1 fL (81-99); Mean Platelet Vol. 11.5 fl (6.2-12.0); Platelet Count 195 K/mm3 (150-450); RBC Distribution Width CV 12.6 % (11.6-14.6); RBC Distribution Width SD 39.7 fl (35.1-43.9); Red Blood Count 5.39 M/mm3 (4.2-5.4)
[2020-05-27 06:47] LABS: AST(SGOT) 106 U/L (15-37); Alanine Aminotransfer ALT/SGPT 88 U/L (13-56); Albumin, Serum 2.6 g/dL (3.2-5.0); Alkaline Phosphatase 159 U/L (45-117); Anion Gap 11 (5-15); BUN 38 mg/dL (7-18); BUN/Creat Ratio 44.2 RATIO (10-20); Bilirubin, Direct 0.29 mg/dL (0.00-0.30); Calcium,Total 8.5 mg/dL (8.5-10.1); Chloride 96 mmol/L (98-107); Cholesterol 123 mg/dL (200); Creatinine, Serum 0.86 mg/dL (0.55-1.02); EST Glomerular Filtration Rate 73 mL/min (>60); Est Glom Filt Rate - Afr Amer 88 mL/min (>60); Estimated Creatinine Clearance 67.29 ml/min; Globulin 4.5 g/dL (2.2-4.2); Glucose 169 mg/dL (74-106); High Density Lipoprotein 22 mg/dL; Magnesium 2.4 mg/dL (1.6-2.6); Protein, Total 7.1 g/dL (6.4-8.2); Sodium Level 128 mmol/L (136-145); Triglycerides 183 mg/dL; Very Low Density Lipoprotein 37 mg/dL (5-40)
[2020-05-27] MEDS: Insulin Lispro 100 UNIT/ML INSULN.PEN 15 UNIT SC ×3 (07:28→15:54)
[2020-05-27] MEDS: dexAMETHasone 4 MG Tablet 6 MG PO (07:29)
[2020-05-27] MEDS: Insulin Lispro 100 UNIT/ML INSULN.PEN SC ×4 (07:29→20:59)
[2020-05-27] MEDS: Enoxaparin 40 MG/0.4 ML Syringe SC ×2 (07:30→20:59)
--- NOTE | 2020-05-27 07:44 | PN_ITS ---
Patient Problems: Active and Suspected Problems (This Medical Record has been edited. 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 Patient was found to be hypoxic on admission with oxygen saturation 83% on room air. CT of the chest obtained on admission demonstrated Diffuse groundglass opacities compatible with multifocal pneumonia very suggestive of viral pneumonia was noted. Also patient had multiple small mediastinal lymph nodes. Patient was also found to have mild transaminitis admitted to the Covid unit for subsequent management Objective: GENERAL: cooperative HEENT: Atraumatic; EYES; Anicteric, Normal Conjunctiva NECK; supple, normal thyroid, RESPIRATORY: Diminished to auscultation CARDIOVASCULAR: Regular S1 S2, GI: soft, normoactive bowel sounds, : No Renal angle tenderness; EXTREMITIES: No edema, no clubbing, MUSCULOSKELETAL: no muscle waisting NEURO: Awake; no lateralizing signs. SKIN: No Rash PSYCH; Flat affect Vitals/I&O's: Vital Signs Temp Pulse Resp BP Pulse Ox 99.6 F H 98 18 105/52 L 92 05/27/20 07:36 05/27/20 07:36 05/27/20 07:36 05/27/20 07:36 05/27/20 07:36 Oxygen Flow Rate (L/min) 15 Oxygen Delivery Method Nasal Cannula Weight: 85.4 kg Body Mass Index (BMI) 31.3 Finger Stick Blood Glucose 377 Intake and Output for Last 24 Hours 05/25/20 05/26/20 05/27/20 23:59 23:59 23:59 Intake Total 1016.75 / 1016.75 Balance 1016.75 / 1016.75 Laboratory Results 05/26/20 08:14: Lactic Acid 1.3 05/26/20 11:11: POC Glucose 478 H* 05/26/20 13:40: Troponin I < 0.015 05/26/20 13:40: B-Natriuretic Peptide 31.6 05/26/20 15:36: POC Glucose 404 H 05/26/20 21:21: POC Glucose 341 H 05/27/20 05:48: Sodium 128 L, Potassium 4.0, Chloride 96 L, Carbon Dioxide 21.0, Anion Gap 11, BUN 38 H, Creatinine 0.86, Estim Creat Clear Calc 67.29, Est GFR (MDRD) Af Amer 88, Est GFR (MDRD) Non-Af 73, BUN/Creatinine Ratio 44.2 H, Glucose 169 H, Calcium 8.5, Magnesium 2.4, Total Bilirubin 0.90, Direct Bilirubin 0.29, AST 106 H, ALT 88 H, Alkaline Phosphatase 159 H, Total Protein 7.1, Albumin 2.6 L, Globulin 4.5 H, Triglycerides 183, Cholesterol 123, LDL Cholesterol 64, VLDL Cholesterol 37, HDL Cholesterol 22 L 05/27/20 05:48: WBC 6.0, RBC 5.39, Hgb 15.5 H, Hct 46.4, MCV 86.1, MCH 28.8, MCHC 33.4, RDW Std Deviation 39.7, RDW Coeff of Osorio 12.6, Plt Count 195, MPV 11.5 Current Medications Acetaminophen (Acetaminophen 325 Mg Tablet) 650 mg PO Q6H PRN PRN PRN Reason: Pain Score 1-10/Temp > 100.7 F Last Admin: 05/26/20 21:59 Dose: 650 mg Documented by: Dexamethasone (Dexamethasone 4 Mg Tablet) 6 mg PO DAILY [facility] Stop: 06/04/20 10:01 Last Admin: 05/27/20 07:29 Dose: 6 mg Documented by: Dextrose (Dextrose 50%-Water 25 Gm/50 Ml Disp.Syrin) 0 gm IV X1 PRN; Protocol PRN Reason: Hypoglycemia Enoxaparin Sodium (Enoxaparin 40 Mg/0.4 Ml Syringe) 40 mg SC BID [facility] Last Admin: 05/27/20 07:30 Dose: 40 mg Documented by: Glucagon (Glucagon 1 Mg/Ml Syringe) 1 mg IM .X1 PRN PRN Reason: Hypoglycemia Sodium Chloride () 250 mls @ 15 mls/hr IV .[id number] PRN PRN Reason: Saline Flush Last Infusion: 05/26/20 07:33 Dose: 0 mls/hr Documented by: Sodium Chloride () 250 mls @ 15 mls/hr IV .[id number] PRN PRN Reason: Additional IVPB Infusion Remdesivir 100 mg/ Sodium (Chloride) 250 mls @ 125 mls/hr IV DAILY OLLIE; Protocol Stop: 05/30/20 11:59 Insulin Glargine (Insulin Glargine 100 Units/Ml Pen) 40 units SC BID [facility] Last Admin: 05/27/20 07:30 Dose: 40 u Documented by: Insulin Human Lispro (Insulin Lispro 100 Unit/Ml Insuln.Pen) 0 unit SC ACHS OLLIE; Protocol Last Admin: 05/27/20 07:29 Dose: 4 u Documented by: Insulin Human Lispro (Insulin Lispro 100 Unit/Ml Insuln.Pen) 15 unit SC TIDAC [facility]LLIE Last Admin: 05/27/20 07:28 Dose: 15 u Documented by: Melatonin (Melatonin 3 Mg Tablet) 3 mg PO QHS PRN PRN PRN Reason: INSOMNIA Ondansetron HCl (Ondansetron 4 Mg/2 Ml Vial) 4 mg IV Q8H PRN PRN PRN Reason: NAUSEA/VOMITING Sodium Chloride (0.9% Saline Lock 10 Ml Syringe) 10 - 40 ml IV UD PRN PRN Reason: SALINE FLUSH Last Admin: 05/26/20 07:32 Dose: 10 ml Documented by: STROKE Vital Signs/Narrative: Vital Signs Temp Pulse Resp BP Pulse Ox 05/27/20 07:36 99.6 F H 98 18 105/52 L 92 Medical Necessity - Tobacco Use Smoking Status: Former smoker Assessment/Plan All Active Problems (This Medical Record has been edited. 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 Patient was found to be hypoxic on admission with oxygen saturation 83% on room air. CT of the chest obtained on admission demonstrated Diffuse groundglass opacities compatible with multifocal pneumonia very suggestive of viral pneumonia was noted. Also patient had multiple small mediastinal lymph nodes. Patient was also found to have mild transaminitis admitted to the Covid unit for subsequent management 1. Acute hypoxic respiratory failure secondary to COVID-19 pneumonitis -CT of the chest obtained on admission demonstrated Diffuse groundglass opacities compatible with multifocal pneumonia very suggestive of viral pneumonia was noted. Also patient had multiple small mediastinal lymph nodes. Patient was also found to have mild transaminitis admitted to the Covid unit for subsequent management. Patient was placed on supplemental oxygen and Decadron as well as remdesivir. Consult placed to both pulmonary medicine as well as infectious disease. Patient was placed on high flow oxygen titrated to keep saturation greater than 90 2. Hyperglycemia ?Patient not a known diabetic however hemoglobin A1c on admission was 10.8 consistent with newly diagnosed diabetes mellitus type 2. Patient was placed on long-acting insulin in addition to Accu-Cheks before meals and at bedtime with sliding scale coverage consultation placed to diabetic education and dietitian 3. Hyponatremia ?Secondary to combination of hypovolemic hyponatremia as well as hyperglycemia o n IV fluid with subsequent monitoring of electrolyte 4. Transaminitis ?Secondary to COVID-19 infection. Monitoring daily liver function 5. Obesity with BMI of 31.3 ?Weight loss advised 6. GERD -Placed on famotidine 1. DVT prophylaxis ?Lovenox 40 mg SC every 12 Q12 Inpatient E&M: [id number] [facility] L3
[2020-05-27 07:45] LABS: Bedside Glucose 212 mg/dL (70-110)
[2020-05-27] MEDS: Acetaminophen 325 MG Tablet 650 MG PO (10:32)
[2020-05-27] MEDS: 0.9% Saline Lock 10 ML Syringe IV (10:34)
[2020-05-27 11:56] LABS: Bedside Glucose 272 mg/dL (70-110)
[2020-05-27 21:36] LABS: Bedside Glucose 356 mg/dL (70-110)
[2020-05-27 21:46] LABS: Bedside Glucose 249 mg/dL (70-110)
[2020-05-28] VITALS (33 sets, daily range): BP systolic 71–149; BP diastolic 37–91; PULSE 84–108; RESP 12–38; TEMP 36.4–38.6; O2SAT 80–98
[2020-05-28] MEDS: guaiFENesin 1,200 MG Tablet 1200 MG PO (02:28)
--- NOTE | 2020-05-28 04:38 | RAD_ITS ---
STUDY: X-RAY CHEST REASON FOR EXAM: Female, 55 years old. SOB TECHNIQUE: Single AP portable view of the chest. COMPARISON: 05/26/2020 FINDINGS: There is more homogeneous diffuse airspace disease with basilar and mid lung parenchymal opacification since most recent exam. There is no demonstrated pleural abnormality. Normal size heart. Normal mediastinum and lillie. Normal visualized pulmonary arteries. Normal visualized aortic arch and descending thoracic aorta. Normal visualized thoracic spine. Normal visualized ribs, clavicles, and shoulders. There is no demonstrated abnormality of the visualized soft tissue structures of the upper abdomen. RAD/Chest 1 View (Portable) IMPRESSION: GA confluent airspace disease likely pneumonia multilobular and bilateral. Aeration has worsened. Electronically Signed: Nighat Neal MD at 5:48 EST , Service support ,
--- NOTE | 2020-05-28 04:57 | NURSING ---
dr munson came to see pt. wants pt to transfer to icu. nursing supv aware bed 201. primary rn and cps with pt. pt on bipap pox 92%. pt notified her family and doesnt need staff to call her family.
--- NOTE | 2020-05-28 05:00 | PN_ITS ---
Progress Note Notified of patient continue to have significant hypoxia on airvo. Per nurse report respiratory therapy is recommending chest x-ray. Chest x-ray; ABG and a proair inhaler ordered remotely. Discussed with respiratory therapy to start patient on BiPAP. Examined at the bedside. Alert and oriented x3. Patient on BiPAP at 85%; increased work of breathing; tachypnea; lungs clear on association. Heart sounds S1-S2 present Abdomen with bowel sounds present; soft nontender Extremities without edema Acute hypoxemic respiratory failure New chest x-ray reviewed on chest x-ray machine showed diffuse opacities. Old chest x-ray on 05/26/2020 reviewed on chest x-ray machine as well. New chest x- ray shows worsening opacities per my interpretation. Patient to be transitioned to AVAP. Transfer patient to intensive care unit. Discussed CODE STATUS with patient. Per patient it is okay to intubate if necessary. Critical care time spent 35 minutes from 0430 to 0505: Critical care time involved time at the bedside; discussing case with patient, respiratory therapists and nurses, and review of charts. STROKE Vital Signs/Narrative: Vital Signs Temp Pulse Resp BP Pulse Ox 05/28/20 05:00 92 05/28/20 04:00 96 28 H 91 05/28/20 02:20 99.1 F 92 18 136/64 H 98 05/28/20 02:15 98 28 H 90 Procedures: 12580 Critial Care 1st Hr
[2020-05-28 05:26] LABS: Allen Test Positive; Base Excess 1 mmol/L (-2 to +2); Bicarbonate 24.5 mmol/L (22-26); Blood Gas Specimen Type ART; FI02 85; Mode BIVENT; O2 Delivery Device BiPAP; PEEP 8; PO2 57 mmHG (75-100); SITE L Radial; SO2 92 % (95-99); Total Carbon Dioxide 26 mmol/L; Vt 450; pCO2 31.3 mmHg (35-45)
--- NOTE | 2020-05-28 07:06 | PCM.PN.INT ---
Subjective: The patient was seen and examined at the bedside this morning. Events from the last 24 hours have been reviewed. The patient is currently afebrile, hemodynamically stable and maintaining appropriate oxygen saturations on AVAPS with an FiO2 requirement of 100%. The patient was transferred from the medical surgical floor to the ICU early this morning due to decompensation in the patient's respiratory status. She was placed on noninvasive positive pressure ventilatory support and appears to be stabilizing at this time. Objective: The patient's most recent lab work, culture data and imaging studies have all been personally reviewed. Coronavirus PCR was positive on May 22. Blood cultures have shown no growth to date. General: Alert, Cooperative, - - Appears more comfortable with BiPAP in place. HEENT: Atraumatic, PERRLA, Normocephalic Oral: Dry Mucosa Neck: Supple, No Nodes, Trachea Midline Lungs: No rhonchi, No wheeze, No rales, Diminished, Tachypneic Cardiovascular: Regular rate, Regular Rhythm Abdomen: Bowel Sounds Present, Soft, Non Tender Extremities: No clubbing, No cyanosis, No edema Skin: No breakdown Musculoskeletal: No Tenderness to Palpation of Joints or Extremities Lymphatic: No Cervical, Supraclavicular, or Inguinal Adenopathy Neurological: Cranial nerves II-XII grossly intact, Neuro grossly intact Psych/Mental Status: Normal Affect Vital Signs Temp Pulse Resp BP Pulse Ox 97.5 F L 89 34 H 96/49 L 93 05/28/20 06:10 05/28/20 06:45 05/28/20 06:45 05/28/20 06:45 05/28/20 06:45 Oxygen Flow Rate (L/min) 60 Oxygen Delivery Method Bi-pap Weight: 169 lb 8.568 oz Body Mass Index (BMI) 31.3 Finger Stick Blood Glucose 377 Intake and Output for Last 24 Hours 05/26/20 05/27/20 05/28/20 23:59 23:59 23:59 Intake Total 1016.75 / 1016.75 1245.5 / 1245.5 Balance 1016.75 / 1016.75 1245.5 / 1245.5 Labs (Last 48 Hours) 05/26/20 05/26/20 05/26/20 06:18 08:14 11:11 WBC RBC Hgb Hct MCV MCH MCHC RDW Std Deviation RDW Coeff of Osorio Plt Count MPV Specimen Type Sample Site pH Bicarbonate Actual Total CO2 Base Excess O2 Saturation O2 % ABG pCO2 ABG pO2 Pete Test O2 Delivery Device Vent Mode Tidal Volume POC PEEP Sodium Potassium Chloride Carbon Dioxide Anion Gap BUN Creatinine Estim Creat Clear Calc Est GFR (MDRD) Af Amer Est GFR (MDRD) Non-Af BUN/Creatinine Ratio Glucose Lactic Acid 1.3 Calcium Magnesium Total Bilirubin Direct Bilirubin AST ALT Alkaline Phosphatase Troponin I B-Natriuretic Peptide Total Protein Albumin Globulin Triglycerides Cholesterol LDL Cholesterol VLDL Cholesterol HDL Cholesterol POC Glucose 364 H 478 H* 05/26/20 05/26/20 05/26/20 13:40 13:40 15:36 WBC RBC Hgb Hct MCV MCH MCHC RDW Std Deviation RDW Coeff of Osorio Plt Count MPV Specimen Type Sample Site pH Bicarbonate Actual Total CO2 Base Excess O2 Saturation O2 % ABG pCO2 ABG pO2 Pete Test O2 Delivery Device Vent Mode Tidal Volume POC PEEP Sodium Potassium Chloride Carbon Dioxide Anion Gap BUN Creatinine Estim Creat Clear Calc Est GFR (MDRD) Af Amer Est GFR (MDRD) Non-Af BUN/Creatinine Ratio Glucose Lactic Acid Calcium Magnesium Total Bilirubin Direct Bilirubin AST ALT Alkaline Phosphatase Troponin I < 0.015 B-Natriuretic Peptide 31.6 Total Protein Albumin Globulin Triglycerides Cholesterol LDL Cholesterol VLDL Cholesterol HDL Cholesterol POC Glucose 404 H 05/26/20 05/27/20 05/27/20 21:21 05:48 05:48 WBC 6.0 RBC 5.39 Hgb 15.5 H Hct 46.4 MCV 86.1 MCH 28.8 MCHC 33.4 RDW Std Deviation 39.7 RDW Coeff of Osorio 12.6 Plt Count 195 MPV 11.5 Specimen Type Sample Site pH Bicarbonate Actual Total CO2 Base Excess O2 Saturation O2 % ABG pCO2 ABG pO2 Pete Test O2 Delivery Device Vent Mode Tidal Volume POC PEEP Sodium 128 L Potassium 4.0 Chloride 96 L Carbon Dioxide 21.0 Anion Gap 11 BUN 38 H Creatinine 0.86 Estim Creat Clear Calc 67.29 Est GFR (MDRD) Af Amer 88 Est GFR (MDRD) Non-Af 73 BUN/Creatinine Ratio 44.2 H Glucose 169 H Lactic Acid Calcium 8.5 Magnesium 2.4 Total Bilirubin 0.90 Direct Bilirubin 0.29 AST 106 H ALT 88 H Alkaline Phosphatase 159 H Troponin I B-Natriuretic Peptide Total Protein 7.1 Albumin 2.6 L Globulin 4.5 H Triglycerides 183 Cholesterol 123 LDL Cholesterol 64 VLDL Cholesterol 37 HDL Cholesterol 22 L POC Glucose 341 H 05/27/20 05/27/20 05/27/20 07:20 10:50 15:48 WBC RBC Hgb Hct MCV MCH MCHC RDW Std Deviation RDW Coeff of Osorio Plt Count MPV Specimen Type Sample Site pH Bicarbonate Actual Total CO2 Base Excess O2 Saturation O2 % ABG pCO2 ABG pO2 Pete Test O2 Delivery Device Vent Mode Tidal Volume POC PEEP Sodium Potassium Chloride Carbon Dioxide Anion Gap BUN Creatinine Estim Creat Clear Calc Est GFR (MDRD) Af Amer Est GFR (MDRD) Non-Af BUN/Creatinine Ratio Glucose Lactic Acid Calcium Magnesium Total Bilirubin Direct Bilirubin AST ALT Alkaline Phosphatase Troponin I B-Natriuretic Peptide Total Protein Albumin Globulin Triglycerides Cholesterol LDL Cholesterol VLDL Cholesterol HDL Cholesterol POC Glucose 212 H 272 H 356 H 05/27/20 05/28/20 20:58 05:17 WBC RBC Hgb Hct MCV MCH MCHC RDW Std Deviation RDW Coeff of Osorio Plt Count MPV Specimen Type ART Sample Site L Radial pH 7.50 H Bicarbonate Actual 24.5 Total CO2 26 Base Excess 1 O2 Saturation 92 L O2 % 85 ABG pCO2 31.3 L ABG pO2 57 L Pete Test Positive O2 Delivery Device BiPAP Vent Mode BIVENT Tidal Volume 450 POC PEEP 8 Sodium Potassium Chloride Carbon Dioxide Anion Gap BUN Creatinine Estim Creat Clear Calc Est GFR (MDRD) Af Amer Est GFR (MDRD) Non-Af BUN/Creatinine Ratio Glucose Lactic Acid Calcium Magnesium Total Bilirubin Direct Bilirubin AST ALT Alkaline Phosphatase Troponin I B-Natriuretic Peptide Total Protein Albumin Globulin Triglycerides Cholesterol LDL Cholesterol VLDL Cholesterol HDL Cholesterol POC Glucose 249 H Clinical Impression(s) from Imaging Studies Chest X-Ray 05/26/20 03:41 IMPRESSION: Multifocal pneumonia to include viral pneumonia. Electronically Signed: Forrest Cee MD at 4:28 EST , Service support , Chest CTA 05/26/20 04:23 IMPRESSION: No pulmonary embolus or thoracic aortic dissection. Diffuse groundglass opacities compatible with multifocal pneumonia very suggestive of viral pneumonia. Multiple small mediastinal lymph nodes. Electronically Signed: Forrest Cee MD at 5:18 EST , Service support , Chest X-Ray 05/28/20 04:38 IMPRESSION: GA confluent airspace disease likely pneumonia multilobular and bilateral. Aeration has worsened. Electronically Signed: Nighat Neal MD at 5:48 EST , Service support , Medical Necessity - Tobacco Use Smoking Status: Former smoker Assessment/Plan All Active Problems (This Medical Record has been edited. Action required.) Pneumonia due to COVID-19 virus (Acute) Respiratory insufficiency (Acute) SARS (severe acute respiratory syndrome) (Acute) RECOMMENDATIONS: 1. Continue AVAPS and wean FiO2 to maintain oxygen saturations at or above 90%. 2. Decrease basal Lantus dose by half. Patient to remain n.p.o. 3. Low threshold for intubation over the next 24 hours. 4. Continue Decadron and remdesivir. Continue to monitor liver and renal function. 5. Aggressive electrolyte repletion. IMPRESSIONS: 1. Acute hypoxemic respiratory failure secondary to COVID-19 pneumonia The patient continued to decompensate from a respiratory perspective and was subsequently transferred to the medical intensive care unit. At the present time she has been maintained on noninvasive positive pressure ventilatory support, which will be continued as tolerated. The patient will be continued on remdesivir and Decadron as well. She will be made n.p.o. pending improvement in her respiratory status. If the patient does not tolerate noninvasive positive pressure ventilatory support she will be intubated and placed on invasive mechanical ventilatory support. 2. Hypokalemia Aggressive electrolyte repletion as ordered. Recheck levels in the morning. 3. Poorly controlled diabetes mellitus Continue Lantus and sliding scale insulin coverage. 4. Transaminitis Potentially related to acute infection versus fatty liver disease. Continue to monitor closely in light of remdesivir utilization. 5. Obesity/GERD Complicates care, management, recovery and prognosis. TIME: 34 minutes of critical care time, independent of procedures, was spent addressing the patient's acute hypoxemic respiratory failure, COVID-19 pneumonia, diabetes mellitus, review of all data and collaboration with the care team. ([id number]) [id number] Critical care first hour
[2020-05-28 07:13] LABS: Hematocrit 43.6 % (37-47); Hemoglobin 14.7 g/dL (12.0-15.0); Mean Corp Hgb Conc 33.7 g/dL (32-36); Mean Corpuscular Hgb 28.1 pg (27.0-32.0); Mean Corpuscular Volume 83.2 fL (81-99); Mean Platelet Vol. 10.9 fl (6.2-12.0); Platelet Count 259 K/mm3 (150-450); RBC Distribution Width CV 12.6 % (11.6-14.6); RBC Distribution Width SD 38.3 fl (35.1-43.9); Red Blood Count 5.24 M/mm3 (4.2-5.4); White Blood Count 8.3 K/mm3 (4.4-11.0)
[2020-05-28 07:46] LABS: AST(SGOT) 72 U/L (15-37); Alanine Aminotransfer ALT/SGPT 62 U/L (13-56); Albumin, Serum 2.9 g/dL (3.2-5.0); Alkaline Phosphatase 132 U/L (45-117); Anion Gap 11 (5-15); BUN 16 mg/dL (7-18); BUN/Creat Ratio 32.9 RATIO (10-20); Bilirubin, Direct 0.26 mg/dL (0.00-0.30); Calcium,Total 8.2 mg/dL (8.5-10.1); Chloride 96 mmol/L (98-107); Creatinine, Serum 0.49 mg/dL (0.55-1.02); EST Glomerular Filtration Rate 141 mL/min (>60); Est Glom Filt Rate - Afr Amer 170 mL/min (>60); Globulin 3.5 g/dL (2.2-4.2); Glucose 96 mg/dL (74-106); Potassium 2.9 mmol/L (3.5-5.1); Protein, Total 6.4 g/dL (6.4-8.2); Sodium Level 132 mmol/L (136-145)
--- NOTE | 2020-05-28 09:09 | PN_ITS ---
Patient Problems: Active and Suspected Problems (This Medical Record has been edited. Action required.) Pneumonia due to COVID-19 virus (Acute) Respiratory insufficiency (Acute) SARS (severe acute respiratory syndrome) (Acute) Reason for Visit: Hypoxic respiratory failure COVID-19 pneumonia Subjective: Was transferred to the intensive care unit following deterioration in her respiratory status. Noninvasive ventilation. Currently on AVAPS with an FiO2 requirement of 100% Objective: GENERAL: Dyspneic at rest HEENT: Atraumatic; EYES; Anicteric, Normal Conjunctiva NECK; supple, normal thyroid, RESPIRATORY: Diminished to auscultation CARDIOVASCULAR: Regular S1 S2, GI: soft, normoactive bowel sounds, : No Renal angle tenderness; EXTREMITIES: No edema, no clubbing, MUSCULOSKELETAL: no muscle waisting NEURO: Awake; no lateralizing signs. SKIN: No Rash PSYCH; Flat affect Vitals/I&O's: Vital Signs Temp Pulse Resp BP Pulse Ox 97.5 F L 88 27 H 104/52 L 93 05/28/20 06:10 05/28/20 07:00 05/28/20 07:00 05/28/20 07:00 05/28/20 07:00 Oxygen Flow Rate (L/min) 60 Oxygen Delivery Method Bi-pap Weight: 76.9 kg Body Mass Index (BMI) 31.3 Finger Stick Blood Glucose 377 Intake and Output for Last 24 Hours 05/26/20 05/27/20 05/28/20 23:59 23:59 23:59 Intake Total 1016.75 / 1016.75 1245.5 / 1245.5 Balance 1016.75 / 1016.75 1245.5 / 1245.5 Microbiology Past 72 Hours 05/26/20 04:05 Blood Culture (Wb) - Right Hand Blood Culture - Preliminary No growth in 48 hours. 05/26/20 03:48 Blood Culture (Wb) - Anticubital Right Blood Culture - Preliminary No growth in 48 hours. Laboratory Results 05/27/20 10:50: POC Glucose 272 H 05/27/20 15:48: POC Glucose 356 H 05/27/20 20:58: POC Glucose 249 H 05/28/20 05:17: Specimen Type ART, Sample Site L Radial, pH 7.50 H, Bicarbonate Actual 24.5, Total CO2 26, Base Excess 1, O2 Saturation 92 L, O2 % 85, ABG pCO2 31.3 L, ABG pO2 57 L, Pete Test Positive, O2 Delivery Device BiPAP, Vent Mode BIVENT, Tidal Volume 450, POC PEEP 8 05/28/20 05:50: WBC 8.3, RBC 5.24, Hgb 14.7, Hct 43.6, MCV 83.2, MCH 28.1, MCHC 33.7, RDW Std Deviation 38.3, RDW Coeff of Osorio 12.6, Plt Count 259, MPV 10.9 05/28/20 05:50: Sodium 132 L, Potassium 2.9 L, Chloride 96 L, Carbon Dioxide 25.0, Anion Gap 11, BUN 16, Creatinine 0.49 L, Estim Creat Clear Calc 118.10, Est GFR (MDRD) Af Amer 170, Est GFR (MDRD) Non-Af 141, BUN/Creatinine Ratio 32.9 H, Glucose 96, Calcium 8.2 L, Total Bilirubin 0.70, Direct Bilirubin 0.26, AST 72 H, ALT 62 H, Alkaline Phosphatase 132 H, Total Protein 6.4, Albumin 2.9 L, Globulin 3.5 Current Medications Acetaminophen (Acetaminophen 325 Mg Tablet) 650 mg PO Q6H PRN PRN PRN Reason: Pain Score 1-10/Temp > 100.7 F Last Admin: 05/27/20 10:32 Dose: 650 mg Documented by: Albuterol Sulfate (Albuterol Ih 8.5 Gm (Proair) Inhaler (200 Puffs)) 2 puff INHALATION Q4H PRN PRN PRN Reason: SOB/WHEEZING Dexamethasone Sodium Phosphate (Dexamethasone 10 Mg/Ml Vial) 6 mg IV DAILY [facility] Stop: 06/04/20 10:01 Dextrose (Dextrose 50%-Water 25 Gm/50 Ml Disp.Syrin) 0 gm IV X1 PRN; Protocol PRN Reason: Hypoglycemia Enoxaparin Sodium (Enoxaparin 40 Mg/0.4 Ml Syringe) 40 mg SC BID [facility] Last Admin: 05/27/20 20:59 Dose: 40 mg Documented by: Glucagon (Glucagon 1 Mg/Ml Syringe) 1 mg IM .X1 PRN PRN Reason: Hypoglycemia Guaifenesin (Guaifenesin 1,200 Mg Tablet) 1,200 mg PO BID [facility] Last Admin: 05/28/20 02:28 Dose: 1,200 mg Documented by: Sodium Chloride () 250 mls @ 15 mls/hr IV .[id number] PRN PRN Reason: Saline Flush Last Infusion: 05/27/20 19:00 Dose: 0 mls/hr Documented by: Sodium Chloride () 250 mls @ 15 mls/hr IV .[id number] PRN PRN Reason: Additional IVPB Infusion Remdesivir 100 mg/ Sodium (Chloride) 250 mls @ 125 mls/hr IV DAILY [facility]; Protocol Stop: 05/30/20 11:59 Last Infusion: 05/27/20 12:38 Dose: Infused Documented by: Potassium Chloride () 10 meq in 100 mls @ 100 mls/hr IV BOLUS Q1H [facility] Stop: 05/28/20 16:14 Insulin Glargine (Insulin Glargine 100 Units/Ml Pen) 40 units SC BID [facility] Last Admin: 05/27/20 21:03 Dose: 40 u Documented by: Insulin Human Lispro (Insulin Lispro 100 Unit/Ml Insuln.Pen) 0 unit SC ACHS [facility]; Protocol Last Admin: 05/28/20 07:49 Dose: Not Given Documented by: Insulin Human Lispro (Insulin Lispro 100 Unit/Ml Insuln.Pen) 15 unit SC TIDAC [facility] Last Admin: 05/28/20 07:49 Dose: Not Given Documented by: Melatonin (Melatonin 3 Mg Tablet) 3 mg PO QHS PRN PRN PRN Reason: INSOMNIA Ondansetron HCl (Ondansetron 4 Mg/2 Ml Vial) 4 mg IV Q8H PRN PRN PRN Reason: NAUSEA/VOMITING Sodium Chloride (0.9% Saline Lock 10 Ml Syringe) 10 - 40 ml IV UD PRN PRN Reason: SALINE FLUSH Last Admin: 05/27/20 10:34 Dose: 10 ml Documented by: STROKE Vital Signs/Narrative: Vital Signs Temp Pulse Resp BP Pulse Ox 05/28/20 07:00 88 27 H 104/52 L 93 05/28/20 06:45 89 34 H 96/49 L 93 05/28/20 06:30 92 24 H 110/53 L 95 05/28/20 06:15 91 33 H 96/52 L 94 05/28/20 06:10 97.5 F L 91 30 H 113/51 L 92 Medical Necessity - Tobacco Use Smoking Status: Former smoker Assessment/Plan All Active Problems (This Medical Record has been edited. 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 Patient was found to be hypoxic on admission with oxygen saturation 83% on room air. CT of the chest obtained on admission demonstrated Diffuse groundglass opacities compatible with multifocal pneumonia very suggestive of viral pneumonia was noted. Also patient had multiple small mediastinal lymph nodes. Patient was also found to have mild transaminitis admitted to the Covid unit for subsequent management 1. Acute hypoxic respiratory failure secondary to COVID-19 pneumonitis -CT of the chest obtained on admission demonstrated Diffuse groundglass opacities compatible with multifocal pneumonia very suggestive of viral pneumonia was noted. Also patient had multiple small mediastinal lymph nodes. Patient was also found to have mild transaminitis admitted to the Covid unit for subsequent management. Patient was placed on supplemental oxygen and Decadron as well as remdesivir. Consult placed to both pulmonary medicine as well as infectious disease. Patient was placed on high flow oxygen titrated to keep saturation greater than 90 -05/28/2020; Was transferred to the intensive care unit following deterioration in her respiratory status. Noninvasive ventilation. Currently on AVAPS with an FiO2 requirement of 100% 2. Hyperglycemia ?Patient not a known diabetic however hemoglobin A1c on admission was 10.8 consistent with newly diagnosed diabetes mellitus type 2. Patient was placed on long-acting insulin in addition to Accu-Cheks before meals and at bedtime with sliding scale coverage consultation placed to diabetic education and dietitian 3. Hyponatremia ?Secondary to combination of hypovolemic hyponatremia as well as hyperglycemia on IV fluid with subsequent monitoring of electrolyte 4. Transaminitis ?Secondary to COVID-19 infection. Monitoring daily liver function 5. Obesity with BMI of 31.3 ?Weight loss advised 6. GERD -Placed on famotidine 7. DVT prophylaxis ?Lovenox 40 mg SC every 12 Q12 Inpatient E&M: [id number] [address]
[2020-05-28] MEDS: Enoxaparin 40 MG/0.4 ML Syringe SC ×2 (10:00→21:09)
[2020-05-28] MEDS: dexAMETHasone 10 MG/ML Vial 6 MG IV (10:00)
[2020-05-28] MEDS: Potassium Chloride 10mEq/100mL 10 MEQ/100 ML IV.SOLN. 100 MEQ IV BOLUS ×8 (10:00→19:00)
[2020-05-28 12:10] LABS: Bedside Glucose 132 mg/dL (70-110)
--- NOTE | 2020-05-28 14:36 | CASEMGMT ---
RN CM Note: Patient only has [employer] benefits. Lookup for [facility] providers on [place] website, using the IWA prefix: [facility], [facility]. -will use [facility] as patient did not have a preference. SEE GREEN SHEET. Jimmy HERNANDEZN RN ACM
--- NOTE | 2020-05-28 14:41 | CPS ---
Pt.'s Pressure Low increased, and pt.'s FiO2 decreased to 90%; weaning FiO2 as tolerated by pt.
--- NOTE | 2020-05-28 15:37 | PCM.PN.ID ---
Patient Problems: Active and Suspected Problems (This Medical Record has been edited. Action required.) Pneumonia due to COVID-19 virus (Acute) Respiratory insufficiency (Acute) SARS (severe acute respiratory syndrome) (Acute) Subjective: Now in icu, on 90% bipap this afternoon. No fever overnight. - Physical Exam Vitals/I&O's: Vital Signs Temp Pulse Resp BP Pulse Ox 98.2 F 94 21 H 103/56 L 93 05/28/20 12:00 05/28/20 12:25 05/28/20 12:25 05/28/20 12:00 05/28/20 12:25 Oxygen Flow Rate (L/min) 8 Oxygen Delivery Method Nasal Cannula Weight: 76.9 kg Body Mass Index (BMI) 31.3 Finger Stick Blood Glucose 377 Intake and Output for Last 24 Hours 05/26/20 05/27/20 05/28/20 23:59 23:59 23:59 Intake Total 1016.75 / 1016.75 1245.5 / 1245.5 650 / 650 Output Total 0 / 0 Balance 1016.75 / 1016.75 1245.5 / 1245.5 650 / 650 General: Cooperative, No apparent distress Lungs: Diminished Cardiovascular: Regular rate, Regular Rhythm Abdomen: Soft, Non Tender, Non-Distended Skin: No rashes Microbiology Past 72 Hours 05/26/20 04:05 Blood Culture (Wb) - Right Hand Blood Culture - Preliminary No growth in 48 hours. 05/26/20 03:48 Blood Culture (Wb) - Anticubital Right Blood Culture - Preliminary No growth in 48 hours. Laboratory Results 05/27/20 15:48: POC Glucose 356 H 05/27/20 20:58: POC Glucose 249 H 05/28/20 05:17: Specimen Type ART, Sample Site L Radial, pH 7.50 H, Bicarbonate Actual 24.5, Total CO2 26, Base Excess 1, O2 Saturation 92 L, O2 % 85, ABG pCO2 31.3 L, ABG pO2 57 L, Pete Test Positive, O2 Delivery Device BiPAP, Vent Mode BIVENT, Tidal Volume 450, POC PEEP 8 05/28/20 05:50: WBC 8.3, RBC 5.24, Hgb 14.7, Hct 43.6, MCV 83.2, MCH 28.1, MCHC 33.7, RDW Std Deviation 38.3, RDW Coeff of Osorio 12.6, Plt Count 259, MPV 10.9 05/28/20 05:50: Sodium 132 L, Potassium 2.9 L, Chloride 96 L, Carbon Dioxide 25.0, Anion Gap 11, BUN 16, Creatinine 0.49 L, Estim Creat Clear Calc 118.10, Est GFR (MDRD) Af Amer 170, Est GFR (MDRD) Non-Af 141, BUN/Creatinine Ratio 32.9 H, Glucose 96, Calcium 8.2 L, Total Bilirubin 0.70, Direct Bilirubin 0.26, AST 72 H, ALT 62 H, Alkaline Phosphatase 132 H, Total Protein 6.4, Albumin 2.9 L, Globulin 3.5 05/28/20 11:20: POC Glucose 132 H Current Medications Acetaminophen (Acetaminophen 325 Mg Tablet) 650 mg PO Q6H PRN PRN PRN Reason: Pain Score 1-10/Temp > 100.7 F Last Admin: 05/27/20 10:32 Dose: 650 mg Documented by: Albuterol Sulfate (Albuterol Ih 8.5 Gm (Proair) Inhaler (200 Puffs)) 2 puff INHALATION Q4H PRN PRN PRN Reason: SOB/WHEEZING Dexamethasone Sodium Phosphate (Dexamethasone 10 Mg/Ml Vial) 6 mg IV DAILY [facility] Stop: 06/04/20 10:01 Last Admin: 05/28/20 10:00 Dose: 6 mg Documented by: Dextrose (Dextrose 50%-Water 25 Gm/50 Ml Disp.Syrin) 0 gm IV X1 PRN; Protocol PRN Reason: Hypoglycemia Enoxaparin Sodium (Enoxaparin 40 Mg/0.4 Ml Syringe) 40 mg SC BID [facility] Last Admin: 05/28/20 10:00 Dose: 40 mg Documented by: Glucagon (Glucagon 1 Mg/Ml Syringe) 1 mg IM .X1 PRN PRN Reason: Hypoglycemia Guaifenesin (Guaifenesin 1,200 Mg Tablet) 1,200 mg PO BID [facility] Last Admin: 05/28/20 12:49 Dose: Not Given Documented by: Sodium Chloride () 250 mls @ 15 mls/hr IV .[id number] PRN PRN Reason: Saline Flush Last Infusion: 05/27/20 19:00 Dose: 0 mls/hr Documented by: Sodium Chloride () 250 mls @ 15 mls/hr IV .[id number] PRN PRN Reason: Additional IVPB Infusion Remdesivir 100 mg/ Sodium (Chloride) 250 mls @ 125 mls/hr IV DAILY [facility]; Protocol Stop: 05/30/20 11:59 Last Infusion: 05/28/20 15:21 Dose: Infused Documented by: Potassium Chloride () 10 meq in 100 mls @ 100 mls/hr IV BOLUS Q1H [facility] Stop: 05/28/20 16:14 Last Admin: 05/28/20 15:20 Dose: 100 mls/hr Documented by: Insulin Glargine (Insulin Glargine 100 Units/Ml Pen) 20 units SC BID [facility] Last Admin: 05/28/20 12:50 Dose: 20 u Documented by: Insulin Human Lispro (Insulin Lispro 100 Unit/Ml Insuln.Pen) 0 unit SC ACHS [facility]; Protocol Last Admin: 05/28/20 12:51 Dose: Not Given Documented by: Insulin Human Lispro (Insulin Lispro 100 Unit/Ml Insuln.Pen) 15 unit SC TIDAC [facility] Last Admin: 05/28/20 12:52 Dose: Not Given Documented by: Melatonin (Melatonin 3 Mg Tablet) 3 mg PO QHS PRN PRN PRN Reason: INSOMNIA Ondansetron HCl (Ondansetron 4 Mg/2 Ml Vial) 4 mg IV Q8H PRN PRN PRN Reason: NAUSEA/VOMITING Sodium Chloride (0.9% Saline Lock 10 Ml Syringe) 10 - 40 ml IV UD PRN PRN Reason: SALINE FLUSH Last Admin: 05/27/20 10:34 Dose: 10 ml Documented by: Medical Necessity - Tobacco Use Smoking Status: Former smoker Route of nutrition/ use of supplements: [] Nutritional Intake: [] IV Site: [] Cuellar Catheter: [] - Assessment/Plan Antibiotics: [] Assessment/Plan: [] Active and Suspected Problems (This Medical Record has been edited. Action required.) Pneumonia due to COVID-19 virus (Acute) Respiratory insufficiency (Acute) SARS (severe acute respiratory syndrome) (Acute) covid with hypoxia - sx start 05/19. Lactate over 2. Mild rise in ALT. Pulm is seeing. D-dimer was 0.9, CT neg for PE, on lovenox 40mg bid. Cont dex, remdesivir. Checking bnp, trop, PCT with AM labs. Will follow
[2020-05-28] MEDS: LORazepam 2 MG/ML Syringe 0.5 MG IV (17:52)
[2020-05-28] MEDS: Midazolam 2 MG/2 ML Syringe 4 MG IV (18:42)
[2020-05-28] MEDS: Etomidate 20 MG/10 ML Vial IV (18:45)
[2020-05-28] MEDS: Propofol 10MG/Ml 1,000 MG/100 ML Bottle 4.6 MG CONT INF (18:50)
[2020-05-28] MEDS: Succinylcholine Chloride 200 MG/10 ML Vial 100 MG IV (19:00)
--- NOTE | 2020-05-28 19:01 | PCM.HOSP.N ---
Hospitalist Note Intubation Note: Patient with evidence of respiratory and/or impending distress. Medications administered: Etomidate 20 mg, 4 mg versed, Propofol 8 ml in addition to 100 succinylcholine as patient significantly biting down on the tube. ETT size: 7.5 Patient intubated in standard fashion with visualization of the vocal cords and passage of the ETT. Positioning verified with auscultation. Post-intubation CXR requested. Patient discussed prior with ICU physician. Discussed intubation needs with patient who understood need and was amenable. Will maintain patient on AC PEEP 10, TV 450, obtain ABG following and PRN. Will continue sedation w/ propofol and fentanyl. If needed may add nibex. Will obtain AM CXR repeat. Procedures: [id number] Insert Emergency Airway
--- NOTE | 2020-05-28 19:20 | RAD_ITS ---
STUDY: X-RAY - ABDOMEN/PELVIS REASON FOR EXAM: Female, 55 years old. CONFIRM OG PLACEMENT TECHNIQUE: A single AP view of the lower chest and upper abdomen was performed. COMPARISON: Chest, 05/28/2020 ([id number]). FINDINGS: There is diffuse infiltrate throughout both lung bases. The heart is normal in size. There is an OG tube with its tip in the distal stomach. There is an unremarkable bowel gas pattern. There is no demonstrated free abdominal air. The visualized liver, spleen and kidneys are grossly normal in size and morphology. Normal soft tissue structures. Normal visualized osseous structures. RAD/Abdomen Single View (Portable) IMPRESSION: 1. OG tube as described. 2. No acute intra-abdominal process. 3. Persistent bibasilar infiltrates. Electronically Signed: Xavier Beach DO at 19:52 EST Tel [phone], Service support ,
--- NOTE | 2020-05-28 19:20 | RAD_ITS ---
STUDY: X-RAY CHEST REASON FOR EXAM: Female, 55 years old. Endotracheal tube placement. TECHNIQUE: Single AP portable view of the chest. COMPARISON: Chest, 05/28/2020 ([id number]) FINDINGS: There is an endotracheal tube with its tip 5.3 cm above the damon. There is enteric tube extending below the left hemidiaphragm. Telemetry wires overlie the chest. Persistent bibasilar pulmonary infiltrates unchanged from previous examination. There is no demonstrated pleural abnormality. Normal size heart. Normal mediastinum and lillie. Normal visualized pulmonary arteries. Normal visualized aortic arch and descending thoracic aorta. No visualized osseous changes. There is no demonstrated abnormality of the visualized soft tissue structures of the upper abdomen. RAD/Chest 1 View (Portable) IMPRESSION: 1. Tubes and catheters as described. 2. Bilateral lower lobe pulmonary infiltrates unchanged from prior exam. Electronically Signed: Xavier Beach DO at 19:57 EST Tel [phone], Service support ,
--- NOTE | 2020-05-28 20:05 | NURSING ---
Dr Qiu notified that patient was dropping her O2 sat below 90% on BiPap at 100%. He spoke with Dr Durham who came to evaluate the patient. Dr Durham ordered to prepare patient for immediate intubation after assessment, patient was intubated by Dr Durham without complication. After patient was intubated and ETT was secured she started to become very agitated and was not responding to propofol and fentanyl gtts that were recently initiated. Dr durham ordered to increase propofol to 40 mcg/kg/min and fentanyl to 200 mcg/hr and then wean as tolerated once rass of -1 was achieved.
--- NOTE | 2020-05-28 20:46 | CPS ---
Patient very agitated after intubation. Bilateral breath sounds heard with color change on EzCap following intubation. Patient continuously coughing and fighting ventilator. Pulse ox falls to 70-80% during these events, but stabilizes to 90-91% when relaxed. Will keep patient on current settings A/C VC 14 450 +10 100%. X-ray was done and ET tube was observed to be above damon at 7.5 @ 23. Will await x-ray report to see if changes need to be made to placement.
[2020-05-28] MEDS: Propofol 10MG/Ml 1,000 MG/100 ML Bottle 6.9 MG CONT INF (21:00)
[2020-05-28] MEDS: Famotidine 200 MG/20 ML MDV 20 MG in 0.9% Normal Saline (Pres. free 8 ML 300 MG IV (21:02)
[2020-05-28] MEDS: 0.9% Saline Lock 10 ML Syringe IV (21:09)
[2020-05-28] MEDS: Chlorhexidine 15 ML PO (21:11)
[2020-05-28 21:36] LABS: Allen Test Positive; Base Excess -2 mmol/L (-2 to +2); Blood Gas Specimen Type ART; FI02 100; Mode AC; O2 Delivery Device Adult Vent; PEEP 10; PO2 59 mmHG (75-100); RR 14; SITE R Radial; SO2 90 % (95-99); Total Carbon Dioxide 24 mmol/L; Vt 450; pCO2 38.2 mmHg (35-45); pH 7.39 (7.35-7.45)
[2020-05-28 21:45] LABS: Bedside Glucose 136 mg/dL (70-110)
[2020-05-29] VITALS (65 sets, daily range): BP systolic 54–175; BP diastolic 35–84; PULSE 63–97; RESP 14–30; TEMP 37.3–38.6; O2SAT 90–99; BMI 28.7
[2020-05-29] MEDS: Acetaminophen 650 MG/20 ML UDC GT ×2 (00:36→06:59)
[2020-05-29 01:09] LABS: CPK Total, Creatine Kinase 37 U/L (26-192); Triglycerides 206 mg/dL
[2020-05-29 01:11] LABS: Bedside Glucose 118 mg/dL (70-110)
[2020-05-29] MEDS: 0.9% Saline Lock 10 ML Syringe IV (05:02)
[2020-05-29 05:13] LABS: Hematocrit 44.4 % (37-47); Hemoglobin 14.4 g/dL (12.0-15.0); Mean Corp Hgb Conc 32.4 g/dL (32-36); Mean Corpuscular Volume 86.2 fL (81-99); Mean Platelet Vol. 10.3 fl (6.2-12.0); Platelet Count 324 K/mm3 (150-450); RBC Distribution Width CV 13.1 % (11.6-14.6); RBC Distribution Width SD 41.3 fl (35.1-43.9); Red Blood Count 5.15 M/mm3 (4.2-5.4)
--- NOTE | 2020-05-29 05:34 | PCM.PN.INT ---
Subjective: The patient was seen and examined at the bedside this morning. Events from the last 24 hours have been reviewed. The patient is currently afebrile, hemodynamically stable and maintaining appropriate oxygen saturations on assist control mode of mechanical ventilation with an FiO2 requirement of 100% and PEEP of 10. The patient continued to decompensate from a respiratory perspective yesterday, eventually requiring intubation. The patient did have to be started on Levophed due to hemodynamic instability that developed as a consequence of sedative medication use. Creatinine is up this morning to 1.19. Potassium is low at 3.4. The patient is currently documented to be overall net +3.6 L for the hospital admission. Objective: The patient's most recent lab work, culture data and imaging studies have all been personally reviewed. Coronavirus PCR was positive on May 22. Blood cultures have shown no growth to date. Sputum culture is pending. General: - - Intubated, sedated and mechanically ventilated. No ventilator dyssynchrony noted. HEENT: Atraumatic, PERRLA, Normocephalic Oral: No Gingival or Mucosal Lesions/ Ulcerations, - - Endotracheal and OG tubes in place Neck: Supple, No Nodes, Trachea Midline Lungs: No rhonchi, No wheeze, No rales, Diminished, Tachypneic Cardiovascular: Regular rate, Regular Rhythm, Normal S1, Normal S2, No murmurs Abdomen: Bowel Sounds Present, Soft, Non Tender Extremities: No clubbing, No cyanosis, No edema Skin: No breakdown Musculoskeletal: No Tenderness to Palpation of Joints or Extremities Lymphatic: No Cervical, Supraclavicular, or Inguinal Adenopathy Neurological: - - No focal neurological deficits. Currently sedated on the ventilator. Vital Signs Temp Pulse Resp BP Pulse Ox 101.2 F H 76 19 H 111/57 L 94 05/29/20 04:00 05/29/20 04:30 05/29/20 04:00 05/29/20 04:30 05/29/20 04:00 Oxygen Flow Rate (L/min) 8 Oxygen Delivery Method Mechanical Ventilator Weight: 169 lb 8.568 oz Body Mass Index (BMI) 31.3 Finger Stick Blood Glucose 377 Intake and Output for Last 24 Hours 05/27/20 05/28/20 05/29/20 23:59 23:59 23:59 Intake Total 1245.5 / 1245.5 1234.28 / 1408.88 394.24 / 394.24 Output Total 0 / 200 230 / 230 Balance 1245.5 / 1245.5 1234.28 / 1208.88 164.24 / 164.24 Labs (Last 48 Hours) 05/27/20 05/27/20 05/27/20 05:48 05:48 07:20 WBC 6.0 RBC 5.39 Hgb 15.5 H Hct 46.4 MCV 86.1 MCH 28.8 MCHC 33.4 RDW Std Deviation 39.7 RDW Coeff of Osorio 12.6 Plt Count 195 MPV 11.5 Specimen Type Sample Site pH Bicarbonate Actual Total CO2 Base Excess O2 Saturation O2 % ABG pCO2 ABG pO2 Pete Test Respiration Rate O2 Delivery Device Vent Mode Tidal Volume POC PEEP Sodium 128 L Potassium 4.0 Chloride 96 L Carbon Dioxide 21.0 Anion Gap 11 BUN 38 H Creatinine 0.86 Estim Creat Clear Calc 67.29 Est GFR (MDRD) Af Amer 88 Est GFR (MDRD) Non-Af 73 BUN/Creatinine Ratio 44.2 H Glucose 169 H Calcium 8.5 Magnesium 2.4 Total Bilirubin 0.90 Direct Bilirubin 0.29 AST 106 H ALT 88 H Alkaline Phosphatase 159 H Total Creatine Kinase Troponin I B-Natriuretic Peptide Total Protein 7.1 Albumin 2.6 L Globulin 4.5 H Triglycerides 183 Cholesterol 123 LDL Cholesterol 64 VLDL Cholesterol 37 HDL Cholesterol 22 L Procalcitonin POC Glucose 212 H 05/27/20 05/27/20 05/27/20 10:50 15:48 20:58 WBC RBC Hgb Hct MCV MCH MCHC RDW Std Deviation RDW Coeff of Osorio Plt Count MPV Specimen Type Sample Site pH Bicarbonate Actual Total CO2 Base Excess O2 Saturation O2 % ABG pCO2 ABG pO2 Pete Test Respiration Rate O2 Delivery Device Vent Mode Tidal Volume POC PEEP Sodium Potassium Chloride Carbon Dioxide Anion Gap BUN Creatinine Estim Creat Clear Calc Est GFR (MDRD) Af Amer Est GFR (MDRD) Non-Af BUN/Creatinine Ratio Glucose Calcium Magnesium Total Bilirubin Direct Bilirubin AST ALT Alkaline Phosphatase Total Creatine Kinase Troponin I B-Natriuretic Peptide Total Protein Albumin Globulin Triglycerides Cholesterol LDL Cholesterol VLDL Cholesterol HDL Cholesterol Procalcitonin POC Glucose 272 H 356 H 249 H 05/28/20 05/28/20 05/28/20 05:17 05:50 05:50 WBC 8.3 RBC 5.24 Hgb 14.7 Hct 43.6 MCV 83.2 MCH 28.1 MCHC 33.7 RDW Std Deviation 38.3 RDW Coeff of Osorio 12.6 Plt Count 259 MPV 10.9 Specimen Type ART Sample Site L Radial pH 7.50 H Bicarbonate Actual 24.5 Total CO2 26 Base Excess 1 O2 Saturation 92 L O2 % 85 ABG pCO2 31.3 L ABG pO2 57 L Pete Test Positive Respiration Rate O2 Delivery Device BiPAP Vent Mode BIVENT Tidal Volume 450 POC PEEP 8 Sodium 132 L Potassium 2.9 L Chloride 96 L Carbon Dioxide 25.0 Anion Gap 11 BUN 16 Creatinine 0.49 L Estim Creat Clear Calc 118.10 Est GFR (MDRD) Af Amer 170 Est GFR (MDRD) Non-Af 141 BUN/Creatinine Ratio 32.9 H Glucose 96 Calcium 8.2 L Magnesium Total Bilirubin 0.70 Direct Bilirubin 0.26 AST 72 H ALT 62 H Alkaline Phosphatase 132 H Total Creatine Kinase Troponin I B-Natriuretic Peptide Total Protein 6.4 Albumin 2.9 L Globulin 3.5 Triglycerides Cholesterol LDL Cholesterol VLDL Cholesterol HDL Cholesterol Procalcitonin POC Glucose 05/28/20 05/28/20 05/28/20 05:50 11:20 16:54 WBC RBC Hgb Hct MCV MCH MCHC RDW Std Deviation RDW Coeff of Osorio Plt Count MPV Specimen Type Sample Site pH Bicarbonate Actual Total CO2 Base Excess O2 Saturation O2 % ABG pCO2 ABG pO2 Pete Test Respiration Rate O2 Delivery Device Vent Mode Tidal Volume POC PEEP Sodium Potassium Chloride Carbon Dioxide Anion Gap BUN Creatinine Estim Creat Clear Calc Est GFR (MDRD) Af Amer Est GFR (MDRD) Non-Af BUN/Creatinine Ratio Glucose Calcium Magnesium Total Bilirubin Direct Bilirubin AST ALT Alkaline Phosphatase Total Creatine Kinase 37 Troponin I B-Natriuretic Peptide Total Protein Albumin Globulin Triglycerides 206 H Cholesterol LDL Cholesterol VLDL Cholesterol HDL Cholesterol Procalcitonin POC Glucose 132 H 136 H 05/28/20 05/29/20 05/29/20 21:33 00:35 05:00 WBC 12.0 H RBC 5.15 Hgb 14.4 Hct 44.4 MCV 86.2 MCH 28.0 MCHC 32.4 RDW Std Deviation 41.3 RDW Coeff of Osorio 13.1 Plt Count 324 MPV 10.3 Specimen Type ART Sample Site R Radial pH 7.39 Bicarbonate Actual 23.0 Total CO2 24 Base Excess -2 O2 Saturation 90 L O2 % 100 ABG pCO2 38.2 ABG pO2 59 L Pete Test Positive Respiration Rate 14 O2 Delivery Device Adult Vent Vent Mode AC Tidal Volume 450 POC PEEP 10 Sodium Potassium Chloride Carbon Dioxide Anion Gap BUN Creatinine Estim Creat Clear Calc Est GFR (MDRD) Af Amer Est GFR (MDRD) Non-Af BUN/Creatinine Ratio Glucose Calcium Magnesium Total Bilirubin Direct Bilirubin AST ALT Alkaline Phosphatase Total Creatine Kinase Troponin I B-Natriuretic Peptide Total Protein Albumin Globulin Triglycerides Cholesterol LDL Cholesterol VLDL Cholesterol HDL Cholesterol Procalcitonin POC Glucose 118 H 05/29/20 05/29/20 05/29/20 05:00 05:00 05:00 WBC RBC Hgb Hct MCV MCH MCHC RDW Std Deviation RDW Coeff of Osorio Plt Count MPV Specimen Type Sample Site pH Bicarbonate Actual Total CO2 Base Excess O2 Saturation O2 % ABG pCO2 ABG pO2 Pete Test Respiration Rate O2 Delivery Device Vent Mode Tidal Volume POC PEEP Sodium Pending Potassium Pending Chloride Pending Carbon Dioxide Pending Anion Gap Pending BUN Pending Creatinine Pending Estim Creat Clear Calc Est GFR (MDRD) Af Amer Pending Est GFR (MDRD) Non-Af Pending BUN/Creatinine Ratio Pending Glucose Pending Calcium Pending Magnesium Total Bilirubin Pending Direct Bilirubin Pending AST Pending ALT Pending Alkaline Phosphatase Pending Total Creatine Kinase Troponin I Pending B-Natriuretic Peptide Pending Total Protein Pending Albumin Pending Globulin Triglycerides Cholesterol LDL Cholesterol VLDL Cholesterol HDL Cholesterol Procalcitonin Pending POC Glucose Microbiology 05/26/20 04:05 Blood Culture (Wb) - Right Hand Blood Culture - Preliminary No growth in 48 hours. 05/26/20 03:48 Blood Culture (Wb) - Anticubital Right Blood Culture - Preliminary No growth in 48 hours. Clinical Impression(s) from Imaging Studies Chest X-Ray 05/26/20 03:41 IMPRESSION: Multifocal pneumonia to include viral pneumonia. Electronically Signed: Forrest Cee MD at 4:28 EST , Service support , Chest CTA 05/26/20 04:23 IMPRESSION: No pulmonary embolus or thoracic aortic dissection. Diffuse groundglass opacities compatible with multifocal pneumonia very suggestive of viral pneumonia. Multiple small mediastinal lymph nodes. Electronically Signed: Forrest Cee MD at 5:18 EST , Service support , Chest X-Ray 05/28/20 04:38 IMPRESSION: GA confluent airspace disease likely pneumonia multilobular and bilateral. Aeration has worsened. Electronically Signed: Nighat Neal MD at 5:48 EST , Service support , Chest X-Ray 05/28/20 19:20 IMPRESSION: 1. Tubes and catheters as described. 2. Bilateral lower lobe pulmonary infiltrates unchanged from prior exam. Electronically Signed: Xavier Beach DO at 19:57 EST Tel [phone], Service support , KUB X-Ray 05/28/20 19:20 IMPRESSION: 1. OG tube as described. 2. No acute intra-abdominal process. 3. Persistent bibasilar infiltrates. Electronically Signed: Xavier Beach DO at 19:52 EST Tel [phone], Service support , Medical Necessity - Tobacco Use Smoking Status: Former smoker Assessment/Plan All Active Problems (This Medical Record has been edited. Action required.) Pneumonia due to COVID-19 virus (Acute) Respiratory insufficiency (Acute) SARS (severe acute respiratory syndrome) (Acute) RECOMMENDATIONS: 1. Continue to wean FiO2 and PEEP to maintain oxygen saturations at or above 90%. 2. Place PICC line today. 3. Wean Levophed to maintain a mean arterial pressure at or above 65 mmHg. 4. Continue Decadron and remdesivir. 5. Electrolyte repletion as ordered. 6. Continue Lovenox as ordered. Recheck D-dimer this morning. 7. Continue Lantus and sliding scale insulin coverage. IMPRESSIONS: 1. Acute hypoxemic respiratory failure secondary to COVID-19 pneumonia The patient continued to decompensate from a respiratory perspective following admission, eventually requiring ICU transfer and subsequent intubation on May 28. She will be continued on remdesivir and Decadron as ordered. We will continue to monitor liver and renal function accordingly. Continue to wean FiO2 and PEEP to maintain oxygen saturations at or above 90%. Sputum culture is pending. Tube feeds can be initiated today from my perspective. 2. Distributive shock The patient developed hemodynamic compromise as a consequence of sedative medication use. She was subsequently placed on Levophed, which will be titrated to maintain a mean arterial pressure at or above 65 mmHg. PICC line can be placed today. 3. Acute kidney injury Likely prerenal in etiology with component of ischemic ATN in the setting of #2. Continue current supportive measures including vasopressor support to maintain hemodynamic stability. A small amount of additional IV fluids will be provided today. Continue to monitor urine output. No current indication for renal replacement therapy. 4. Hypokalemia Aggressive electrolyte repletion as ordered. Recheck levels in the morning. 5. Poorly controlled diabetes mellitus Continue Lantus and sliding scale insulin coverage. 6. Transaminitis Potentially related to acute infection versus fatty liver disease. Continue to monitor closely in light of remdesivir utilization. 7. Obesity/GERD Complicates care, management, recovery and prognosis. Physical therapy to work with the patient once respiratory status has improved. TIME: 38 minutes of critical care time, independent of procedures, was spent addressing the patient's acute hypoxemic respiratory failure, COVID-19 pneumonia, distributive shock, acute kidney injury, diabetes mellitus, review of all data and collaboration with the care team. ([id number]) [id number] Critical care first hour
[2020-05-29 05:46] LABS: ALB/GLOB Ratio 0.6 RATIO (0.9-2.4); AST(SGOT) 72 U/L (15-37); Alanine Aminotransfer ALT/SGPT 50 U/L (13-56); Albumin, Serum 2.5 g/dL (3.2-5.0); Alkaline Phosphatase 122 U/L (45-117); Anion Gap 9 (5-15); BUN 18 mg/dL (7-18); BUN/Creat Ratio 15.1 RATIO (10-20); Bilirubin, Direct 0.35 mg/dL (0.00-0.30); Chloride 102 mmol/L (98-107); Creatinine, Serum 1.19 mg/dL (0.55-1.02); EST Glomerular Filtration Rate 50 mL/min (>60); Est Glom Filt Rate - Afr Amer 61 mL/min (>60); Estimated Creatinine Clearance 48.63 ml/min; Glucose 144 mg/dL (74-106); Potassium 3.4 mmol/L (3.5-5.1); Protein, Total 6.5 g/dL (6.4-8.2); Sodium Level 135 mmol/L (136-145)
[2020-05-29 05:50] LABS: Procalcitonin 0.38 ng/mL (0.00-0.09)
[2020-05-29 06:11] LABS: BNP,B-Type NATRIURETIC PEPTIDE 15.6 pg/mL (0-100)
[2020-05-29] MEDS: Lactated Ringers 1,000 ML 999 ML IV (07:00)
--- NOTE | 2020-05-29 07:14 | PN_ITS ---
Patient Problems: Active and Suspected Problems (This Medical Record has been edited. Action required.) Pneumonia due to COVID-19 virus (Acute) Respiratory insufficiency (Acute) SARS (severe acute respiratory syndrome) (Acute) Reason for Visit: Hypoxic respiratory failure COVID-19 pneumonia Subjective: Respiratory status deteriorated during the evening resulting in patient being intubated. Currently remains on the vent Objective: GENERAL:on the vent HEENT: Atraumatic; ET tube in place EYES; Anicteric, Normal Conjunctiva NECK; supple, normal thyroid, RESPIRATORY: Diminished to auscultation CARDIOVASCULAR: Regular S1 S2, GI: soft, normoactive bowel sounds, : No Renal angle tenderness; EXTREMITIES: edema, no clubbing, MUSCULOSKELETAL: no muscle waisting NEURO: on the vent SKIN: No Rash Vitals/I&O's: Vital Signs Temp Pulse Resp BP Pulse Ox 101.2 F H 76 19 H 111/57 L 94 05/29/20 04:00 05/29/20 04:30 05/29/20 04:00 05/29/20 04:30 05/29/20 04:00 Oxygen Flow Rate (L/min) 8 Oxygen Delivery Method Mechanical Ventilator Weight: 78.2 kg Body Mass Index (BMI) 31.3 Finger Stick Blood Glucose 377 Intake and Output for Last 24 Hours 05/27/20 05/28/20 05/29/20 23:59 23:59 23:59 Intake Total 1245.5 / 1245.5 1234.28 / 1408.88 468.04 / 468.04 Output Total 0 / 200 230 / 230 Balance 1245.5 / 1245.5 1234.28 / 1208.88 238.04 / 238.04 Microbiology Past 72 Hours 05/26/20 04:05 Blood Culture (Wb) - Right Hand Blood Culture - Preliminary No growth in 48 hours. 05/26/20 03:48 Blood Culture (Wb) - Anticubital Right Blood Culture - Preliminary No growth in 48 hours. Laboratory Results 05/28/20 05:50: Sodium 132 L, Potassium 2.9 L, Chloride 96 L, Carbon Dioxide 25.0, Anion Gap 11, BUN 16, Creatinine 0.49 L, Estim Creat Clear Calc 118.10, Est GFR (MDRD) Af Amer 170, Est GFR (MDRD) Non-Af 141, BUN/Creatinine Ratio 32.9 H, Glucose 96, Calcium 8.2 L, Total Bilirubin 0.70, Direct Bilirubin 0.26, AST 72 H, ALT 62 H, Alkaline Phosphatase 132 H, Total Protein 6.4, Albumin 2.9 L, Globulin 3.5 05/28/20 05:50: Total Creatine Kinase 37, Triglycerides 206 H 05/28/20 11:20: POC Glucose 132 H 05/28/20 16:54: POC Glucose 136 H 05/28/20 21:33: Specimen Type ART, Sample Site R Radial, pH 7.39, Bicarbonate Actual 23.0, Total CO2 24, Base Excess -2, O2 Saturation 90 L, O2 % 100, ABG pCO2 38.2, ABG pO2 59 L, Pete Test Positive, Respiration Rate 14, O2 Delivery Device Adult Vent, Vent Mode AC, Tidal Volume 450, POC PEEP 10 05/29/20 00:35: POC Glucose 118 H 05/29/20 05:00: WBC 12.0 H, RBC 5.15, Hgb 14.4, Hct 44.4, MCV 86.2, MCH 28.0, MCHC 32.4, RDW Std Deviation 41.3, RDW Coeff of Osorio 13.1, Plt Count 324, MPV 10.3 05/29/20 05:00: B-Natriuretic Peptide 15.6 05/29/20 05:00: Procalcitonin 0.38 H 05/29/20 05:00: Sodium 135 L, Potassium 3.4 L, Chloride 102, Carbon Dioxide 24.0, Anion Gap 9, BUN 18, Creatinine 1.19 H, Estim Creat Clear Calc 48.63, Est GFR (MDRD) Af Amer 61, Est GFR (MDRD) Non-Af 50 L, BUN/Creatinine Ratio 15.1, Glucose 144 H, Calcium 8.0 L, Total Bilirubin 0.70, Direct Bilirubin 0.35 H, AST 72 H, ALT 50, Alkaline Phosphatase 122 H, Troponin I < 0.015, Total Protein 6.5, Albumin 2.5 L, Globulin 4.0, Albumin/Globulin Ratio 0.6 L Current Medications Acetaminophen (Acetaminophen 650 Mg/20 Ml Udc) 650 mg GT Q6H PRN PRN PRN Reason: FEVER Last Admin: 05/29/20 06:59 Dose: 650 mg Documented by: Albuterol Sulfate (Albuterol Ih 8.5 Gm (Proair) Inhaler (200 Puffs)) 2 puff INHALATION Q4H PRN PRN PRN Reason: SOB/WHEEZING Albuterol Sulfate (Albuterol 2.5 Mg/3 Ml Vial.Neb.) 2.5 mg INHALATION Q2H PRN PRN PRN Reason: dyspnea, wheezing Chlorhexidine Gluconate (Chlorhexidine 15 Ml) 15 ml PO BID [facility] Last Admin: 05/28/20 21:11 Dose: 15 ml Documented by: Dexamethasone Sodium Phosphate (Dexamethasone 10 Mg/Ml Vial) 6 mg IV DAILY OLLIE Stop: 06/04/20 10:01 Last Admin: 05/28/20 10:00 Dose: 6 mg Documented by: Dextrose (Dextrose 50%-Water 25 Gm/50 Ml Disp.Syrin) 0 gm IV X1 PRN; Protocol PRN Reason: Hypoglycemia Enoxaparin Sodium (Enoxaparin 40 Mg/0.4 Ml Syringe) 40 mg SC BID [facility] Last Admin: 05/28/20 21:09 Dose: 40 mg Documented by: Glucagon (Glucagon 1 Mg/Ml Syringe) 1 mg IM .X1 PRN PRN Reason: Hypoglycemia Guaifenesin (Guaifenesin 1,200 Mg Tablet) 1,200 mg PO BID [facility] Last Admin: 05/28/20 20:08 Dose: Not Given Documented by: Sodium Chloride () 250 mls @ 15 mls/hr IV .[id number] PRN PRN Reason: Saline Flush Last Infusion: 05/27/20 19:00 Dose: 0 mls/hr Documented by: Sodium Chloride () 250 mls @ 15 mls/hr IV .[id number] PRN PRN Reason: Additional IVPB Infusion Remdesivir 100 mg/ Sodium (Chloride) 250 mls @ 125 mls/hr IV DAILY [facility]; Protocol Stop: 05/30/20 11:59 Last Infusion: 05/28/20 15:21 Dose: Infused Documented by: Propofol (Diprivan) 1,000 mg in 100 mls @ 4.614 mls/hr CONT INF .Q12H [facility]; Protocol Last Admin: 05/29/20 07:08 Dose: Not Given Documented by: Famotidine 20 mg/ Sodium (Chloride) 10 mls @ 300 mls/hr IV Q12 OLLIE Last Infusion: 05/28/20 21:04 Dose: Infused Documented by: Fentanyl Citrate 1,000 mcg/ (Sodium Chloride) 100 mls @ 5 mls/hr CONT INF .Q20H [facility]; Protocol Last Titration: 05/29/20 07:00 Dose: 150 mcg/hr, 15 mls/hr Documented by: Dexmedetomidine HCl 400 mcg/ (Sodium Chloride) 100 mls @ 9.613 mls/hr CONT INF .[id number] [facility]; Protocol Last Admin: 05/29/20 07:08 Dose: 0.5 mcg/kg/hr, 9.6 mls/hr Documented by: Norepinephrine Bitartrate 8 mg (/ Sodium Chloride) 250 mls @ 9.375 mls/hr CONT INF .[id number] [facility]; Protocol Last Titration: 05/29/20 04:30 Dose: 10 mcg/min, 18.8 mls/hr Documented by: Lactated Ringer's () 1,000 mls @ 999 mls/hr IV .Q1H1M [facility] Stop: 05/29/20 07:20 Last Admin: 05/29/20 07:00 Dose: 999 mls/hr Documented by: Potassium Chloride () 10 meq in 100 mls @ 100 mls/hr IV BOLUS Q1H [facility] Stop: 05/29/20 10:59 Insulin Glargine (Insulin Glargine 100 Units/Ml Pen) 10 units SC BID [facility] Last Admin: 05/28/20 21:11 Dose: 10 u Documented by: Insulin Human Lispro (Insulin Lispro 100 Unit/Ml Insuln.Pen) 15 unit SC TIDAC [facility] Last Admin: 05/28/20 17:47 Dose: Not Given Documented by: Insulin Human Lispro (Insulin Lispro 100 Unit/Ml Insuln.Pen) 0 unit SC Q6 [facility]; Protocol Last Admin: 05/29/20 05:51 Dose: Not Given Documented by: Melatonin (Melatonin 3 Mg Tablet) 3 mg PO QHS PRN PRN PRN Reason: INSOMNIA Ondansetron HCl (Ondansetron 4 Mg/2 Ml Vial) 4 mg IV Q8H PRN PRN PRN Reason: NAUSEA/VOMITING Sodium Chloride (0.9% Saline Lock 10 Ml Syringe) 10 - 40 ml IV UD PRN PRN Reason: SALINE FLUSH Last Admin: 05/29/20 05:02 Dose: 20 ml Documented by: STROKE Vital Signs/Narrative: Vital Signs Temp Pulse Resp BP Pulse Ox 05/29/20 04:30 76 111/57 L 05/29/20 04:16 76 05/29/20 04:15 76 105/59 L 05/29/20 04:00 101.2 F H 74 19 H 72/46 L 94 05/29/20 03:58 74 17 93 05/29/20 03:45 74 60/37 L 05/29/20 03:30 74 54/35 L 05/29/20 03:15 74 60/39 L Medical Necessity - Tobacco Use Smoking Status: Former smoker Assessment/Plan All Active Problems (This Medical Record has been edited. 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 Patient was found to be hypoxic on admission with oxygen saturation 83% on room air. CT of the chest obtained on admission demonstrated Diffuse groundglass opacities compatible with multifocal pneumonia very suggestive of viral pneumonia was noted. Also patient had multiple small mediastinal lymph nodes. Patient was also found to have mild transaminitis admitted to the Covid unit for subsequent management 1. Acute hypoxic respiratory failure secondary to COVID-19 pneumonitis -CT of the chest obtained on admission demonstrated Diffuse groundglass opacities compatible with multifocal pneumonia very suggestive of viral pneumonia was noted. Also patient had multiple small mediastinal lymph nodes. Patient was also found to have mild transaminitis admitted to the Covid unit for subsequent management. Patient was placed on supplemental oxygen and Decadron as well as remdesivir. Consult placed to both pulmonary medicine as well as infectious disease. Patient was placed on high flow oxygen titrated to keep saturation greater than 90 -05/28/2020; Was transferred to the intensive care unit following deterioration in her respiratory status. Noninvasive ventilation. Currently on AVAPS with an FiO2 requirement of 100% ?05/29/2020;Respiratory status deteriorated during the evening resulting in patient being intubated. Currently remains on the vent 2. Hyperglycemia ?Patient not a known diabetic however hemoglobin A1c on admission was 10.8 consistent with newly diagnosed diabetes mellitus type 2. Patient was placed on long-acting insulin in addition to Accu-Cheks before meals and at bedtime with sliding scale coverage consultation placed to diabetic education and dietitian 3. Hyponatremia ?Secondary to combination of hypovolemic hyponatremia as well as hyperglycemia on IV fluid with subsequent monitoring of electrolyte 4. Transaminitis ?Secondary to COVID-19 infection. Monitoring daily liver function 5. Obesity with BMI of 31.3 ?Weight loss advised 6. GERD -Placed on famotidine 7. DVT prophylaxis ?Lovenox 40 mg SC every 12 Q12 8. Hypokalemia -corrected per protocol Inpatient E&M: [id number] [facility] L[facility]
[2020-05-29] MEDS: dexAMETHasone 10 MG/ML Vial 6 MG IV (08:58)
[2020-05-29] MEDS: Chlorhexidine 15 ML PO ×2 (08:58→20:50)
[2020-05-29] MEDS: Enoxaparin 40 MG/0.4 ML Syringe SC ×2 (08:58→22:48)
[2020-05-29] MEDS: Potassium Chloride 10mEq/100mL 10 MEQ/100 ML IV.SOLN. 100 MEQ IV BOLUS ×4 (09:19→12:52)
--- NOTE | 2020-05-29 09:56 | NT.THERAPY_ITS ---
Nutrition Therapy Report - History Nutrition Services has been consulted to:: Manage enteral nutrition Current diet / nutrition support order:: NPO - Anthropometric Measurements Height:: 5 ft 5 in Weight:: 78.2 kg Body Mass Index (BMI):: 28.7 - Relevant Labs Relevant Labs:: WBC 12.0 K/mm3 (4.4-11.0) H 05/29/20 05:00 Hgb 15.5 g/dL (12.0-15.0) H 05/27/20 05:48 Neut % (Auto) 78.7 % (47-70) H 05/26/20 03:48 Lymph % (Auto) 15.8 % (19-41) L 05/26/20 03:48 Absolute Lymphs (auto) 0.73 X10^3/uL (0.83-4.51) L 05/26/20 03:48 D-Dimer Quant (PE/DVT) 0.91 FEU/ug/m (0.27-0.49) H* 05/26/20 03:48 Sodium 135 mmol/L (136-145) L 05/29/20 05:00 Potassium 3.4 mmol/L (3.5-5.1) L 05/29/20 05:00 Chloride 96 mmol/L (98-107) L 05/28/20 05:50 BUN 38 mg/dL (7-18) H 05/27/20 05:48 Creatinine 1.19 mg/dL (0.55-1.02) H 05/29/20 05:00 Est GFR (MDRD) Non-Af 50 mL/min (>60) L 05/29/20 05:00 BUN/Creatinine Ratio 32.9 RATIO (10-20) H 05/28/20 05:50 Glucose 144 mg/dL (74-106) H 05/29/20 05:00 Hemoglobin A1c 10.8 % (3.8-5.6) H 05/26/20 03:48 Lactic Acid 2.8 mmol/L (0.4-1.9) H* 05/26/20 03:48 Calcium 8.0 mg/dL (8.5-10.1) L 05/29/20 05:00 Direct Bilirubin 0.35 mg/dL (0.00-0.30) H 05/29/20 05:00 AST 72 U/L (15-37) H 05/29/20 05:00 ALT 62 U/L (13-56) H 05/28/20 05:50 Alkaline Phosphatase 122 U/L (45-117) H 05/29/20 05:00 Albumin 2.5 g/dL (3.2-5.0) L 05/29/20 05:00 Globulin 4.5 g/dL (2.2-4.2) H 05/27/20 05:48 Albumin/Globulin Ratio 0.6 RATIO (0.9-2.4) L 05/29/20 05:00 Triglycerides 206 mg/dL (-199) H 05/28/20 05:50 HDL Cholesterol 22 mg/dL (40-) L 05/27/20 05:48 Procalcitonin 0.38 ng/mL (0.00-0.09) H 05/29/20 05:00 - Assessment Food / Nutrition-Related History:: Discussed in ICU rounds. Pt transferred to ICU d/t worsening resp status resulting in intubation 05/28. Per Dr. Qiu TF okay to be intiated this day. CBW 172.4#. Noted to be down 15.9# since admission wt; indicating wt loss 15.9#/8.4% x 3 days- pt reported a 3.5% wt loss x 1 week [employer], w/ UBW 195#. Will monitor wt for trends. - Nutrition Diagnosis Problem / Etiology / Signs & Symptoms (PES):: Pt w/ severe, acute malnutrition related to inadequate energy intake d/t resp. failure during acute COVID-19 infection as evidenced by reported PO intake meeting less than 50% of pt's estimated nutritional needs x 1 week and 3.5% unintentional wt loss. Evidence of Malnutrition Exists:: Yes Severe PCM:: Acute Illness - Nutrition Intervention Nutrition Prescription:: Estimated nutrition needs: [id number] calories, 70-80 grams protein - Food / Nutrient Delivery Interventions Nutrition support ordered as / adjusted to:: Rec Vital AF 1.2 via OG at goal rate 60 ml/hr with 140 mL H2O flush every 4 hours to provide 1728 calories, 108 grams protein, and 2008 mL free water per day. Would intiate TF at 20 ml per hour and increase by 15 ml every 8-12 hours as pt tolerates until goal rate achieved. Nutrition education provided?: No - MNT Monitoring Further MNT monitoring and evaluation required?: Yes MNT Follow-up in:: 1-2 days
[2020-05-29] MEDS: Famotidine 200 MG/20 ML MDV 20 MG in 0.9% Normal Saline (Pres. free 8 ML 300 MG IV (11:04)
[2020-05-29] MEDS: Insulin Lispro 100 UNIT/ML INSULN.PEN SC ×3 (11:05→22:48)
[2020-05-29 11:40] LABS: Bedside Glucose 324 mg/dL (70-110)
[2020-05-29 11:59] LABS: D-Dimer Quantitative (DVT/PE) 1.49 FEU/ug/m (0.27-0.49)
--- NOTE | 2020-05-29 12:03 | NURSING ---
Some bleeding at insertion site post procedure. Gauze and pressure applied. Please change dressing in 12-24hrs.
--- NOTE | 2020-05-29 12:29 | NURSING ---
bracelets from left wrist removed and placed in patient's purse
[2020-05-29] MEDS: Vital AF 1.2 Cal Liquid 1,000 ML 60 ML GT (15:31)
[2020-05-29 18:15] LABS: Bedside Glucose 319 mg/dL (70-110)
[2020-05-29] MEDS: Famotidine 200 MG/20 ML MDV 20 MG in 0.9% Normal Saline (Pres. free 8 ML 330 MG IV (22:49)
[2020-05-29 23:25] LABS: Bedside Glucose 312 mg/dL (70-110)
[2020-05-30] VITALS (59 sets, daily range): BP systolic 102–159; BP diastolic 35–79; PULSE 67–84; RESP 14–26; TEMP 37.9–38.6; O2SAT 90–96
[2020-05-30 04:01] LABS: Hematocrit 44.4 % (37-47); Hemoglobin 14.5 g/dL (12.0-15.0); Mean Corp Hgb Conc 32.7 g/dL (32-36); Mean Corpuscular Hgb 28.2 pg (27.0-32.0); Mean Corpuscular Volume 86.2 fL (81-99); Mean Platelet Vol. 9.9 fl (6.2-12.0); Platelet Count 314 K/mm3 (150-450); RBC Distribution Width CV 13.2 % (11.6-14.6); RBC Distribution Width SD 41.3 fl (35.1-43.9); Red Blood Count 5.15 M/mm3 (4.2-5.4); White Blood Count 9.3 K/mm3 (4.4-11.0)
[2020-05-30 04:18] LABS: ALB/GLOB Ratio 0.5 RATIO (0.9-2.4); AST(SGOT) 31 U/L (15-37); Alanine Aminotransfer ALT/SGPT 43 U/L (13-56); Albumin, Serum 2.2 g/dL (3.2-5.0); Alkaline Phosphatase 138 U/L (45-117); Anion Gap 10 (5-15); BUN 19 mg/dL (7-18); BUN/Creat Ratio 28.1 RATIO (10-20); Calcium,Total 8.2 mg/dL (8.5-10.1); Chloride 107 mmol/L (98-107); Creatinine, Serum 0.68 mg/dL (0.55-1.02); EST Glomerular Filtration Rate 97 mL/min (>60); Est Glom Filt Rate - Afr Amer 117 mL/min (>60); Globulin 4.3 g/dL (2.2-4.2); Glucose 340 mg/dL (74-106); Potassium 4.4 mmol/L (3.5-5.1); Protein, Total 6.5 g/dL (6.4-8.2); Sodium Level 139 mmol/L (136-145)
[2020-05-30] MEDS: Insulin Lispro 100 UNIT/ML INSULN.PEN SC ×4 (05:41→23:31)
--- NOTE | 2020-05-30 05:42 | PCM.PN.INT ---
Subjective: The patient was seen and examined at the bedside this morning. Events from the last 24 hours have been reviewed. The patient is currently afebrile, hemodynamically stable and maintaining appropriate oxygen saturations on assist control mode of mechanical ventilation with an FiO2 requirement of 60% and PEEP of 10. Liver and renal function remained stable. The patient continues to require Levophed at 6 mcg/min to maintain hemodynamic stability. She remains on both remdesivir and Decadron. The patient is currently documented to be overall net +4.3 L for the hospital admission. The patient has been tolerant of tube feeds. Objective: The patient's most recent lab work, culture data and imaging studies have all been personally reviewed. Coronavirus PCR was positive on May 22. Blood cultures have shown no growth to date. Sputum culture is pending. General: - - Intubated, sedated and mechanically ventilated. No ventilator dyssynchrony noted. HEENT: Atraumatic, PERRLA, Normocephalic Oral: No Gingival or Mucosal Lesions/ Ulcerations, - - Endotracheal and OG tubes in place Neck: Supple, No Nodes, Trachea Midline Lungs: No rhonchi, No wheeze, No rales, Diminished Cardiovascular: Regular rate, Regular Rhythm Abdomen: Bowel Sounds Present, Soft, Non Tender Extremities: No clubbing, No cyanosis, No edema Skin: No breakdown Musculoskeletal: No Tenderness to Palpation of Joints or Extremities Lymphatic: No Cervical, Supraclavicular, or Inguinal Adenopathy Neurological: - - No focal neurological deficits. Currently sedated on the ventilator. Able to follow simple commands. Vital Signs Temp Pulse Resp BP Pulse Ox 100.7 F H 72 21 H 121/43 H 95 05/30/20 04:00 05/30/20 04:43 05/30/20 04:43 05/30/20 04:00 05/30/20 04:43 Oxygen Flow Rate (L/min) 8 Oxygen Delivery Method Mechanical Ventilator Weight: 172 lb 6.424 oz Body Mass Index (BMI) 28.7 Finger Stick Blood Glucose 377 Intake and Output for Last 24 Hours 05/28/20 05/29/20 05/30/20 23:59 23:59 23:59 Intake Total 1234.28 / 1408.88 3013.03 / 3045.13 589.81 / 589.81 Output Total 0 / 200 2430 / 2430 300 / 300 Balance 1234.28 / 1208.88 583.03 / 615.13 289.81 / 289.81 Labs (Last 48 Hours) 05/28/20 05/28/20 05/28/20 05:50 05:50 05:50 WBC 8.3 RBC 5.24 Hgb 14.7 Hct 43.6 MCV 83.2 MCH 28.1 MCHC 33.7 RDW Std Deviation 38.3 RDW Coeff of Osorio 12.6 Plt Count 259 MPV 10.9 D-Dimer Quant (PE/DVT) Specimen Type Sample Site pH Bicarbonate Actual Total CO2 Base Excess O2 Saturation O2 % ABG pCO2 ABG pO2 Pete Test Respiration Rate O2 Delivery Device Vent Mode Tidal Volume POC PEEP Sodium 132 L Potassium 2.9 L Chloride 96 L Carbon Dioxide 25.0 Anion Gap 11 BUN 16 Creatinine 0.49 L Estim Creat Clear Calc 118.10 Est GFR (MDRD) Af Amer 170 Est GFR (MDRD) Non-Af 141 BUN/Creatinine Ratio 32.9 H Glucose 96 Calcium 8.2 L Total Bilirubin 0.70 Direct Bilirubin 0.26 AST 72 H ALT 62 H Alkaline Phosphatase 132 H Total Creatine Kinase 37 Troponin I B-Natriuretic Peptide Total Protein 6.4 Albumin 2.9 L Globulin 3.5 Albumin/Globulin Ratio Triglycerides 206 H Procalcitonin POC Glucose 05/28/20 05/28/20 05/28/20 11:20 16:54 21:33 WBC RBC Hgb Hct MCV MCH MCHC RDW Std Deviation RDW Coeff of Osorio Plt Count MPV D-Dimer Quant (PE/DVT) Specimen Type ART Sample Site R Radial pH 7.39 Bicarbonate Actual 23.0 Total CO2 24 Base Excess -2 O2 Saturation 90 L O2 % 100 ABG pCO2 38.2 ABG pO2 59 L Pete Test Positive Respiration Rate 14 O2 Delivery Device Adult Vent Vent Mode AC Tidal Volume 450 POC PEEP 10 Sodium Potassium Chloride Carbon Dioxide Anion Gap BUN Creatinine Estim Creat Clear Calc Est GFR (MDRD) Af Amer Est GFR (MDRD) Non-Af BUN/Creatinine Ratio Glucose Calcium Total Bilirubin Direct Bilirubin AST ALT Alkaline Phosphatase Total Creatine Kinase Troponin I B-Natriuretic Peptide Total Protein Albumin Globulin Albumin/Globulin Ratio Triglycerides Procalcitonin POC Glucose 132 H 136 H 05/29/20 05/29/20 05/29/20 00:35 05:00 05:00 WBC 12.0 H RBC 5.15 Hgb 14.4 Hct 44.4 MCV 86.2 MCH 28.0 MCHC 32.4 RDW Std Deviation 41.3 RDW Coeff of Osorio 13.1 Plt Count 324 MPV 10.3 D-Dimer Quant (PE/DVT) Specimen Type Sample Site pH Bicarbonate Actual Total CO2 Base Excess O2 Saturation O2 % ABG pCO2 ABG pO2 Pete Test Respiration Rate O2 Delivery Device Vent Mode Tidal Volume POC PEEP Sodium Potassium Chloride Carbon Dioxide Anion Gap BUN Creatinine Estim Creat Clear Calc Est GFR (MDRD) Af Amer Est GFR (MDRD) Non-Af BUN/Creatinine Ratio Glucose Calcium Total Bilirubin Direct Bilirubin AST ALT Alkaline Phosphatase Total Creatine Kinase Troponin I B-Natriuretic Peptide 15.6 Total Protein Albumin Globulin Albumin/Globulin Ratio Triglycerides Procalcitonin POC Glucose 118 H 05/29/20 05/29/20 05/29/20 05:00 05:00 10:56 WBC RBC Hgb Hct MCV MCH MCHC RDW Std Deviation RDW Coeff of Osorio Plt Count MPV D-Dimer Quant (PE/DVT) Specimen Type Sample Site pH Bicarbonate Actual Total CO2 Base Excess O2 Saturation O2 % ABG pCO2 ABG pO2 Pete Test Respiration Rate O2 Delivery Device Vent Mode Tidal Volume POC PEEP Sodium 135 L Potassium 3.4 L Chloride 102 Carbon Dioxide 24.0 Anion Gap 9 BUN 18 Creatinine 1.19 H Estim Creat Clear Calc 48.63 Est GFR (MDRD) Af Amer 61 Est GFR (MDRD) Non-Af 50 L BUN/Creatinine Ratio 15.1 Glucose 144 H Calcium 8.0 L Total Bilirubin 0.70 Direct Bilirubin 0.35 H AST 72 H ALT 50 Alkaline Phosphatase 122 H Total Creatine Kinase Troponin I < 0.015 B-Natriuretic Peptide Total Protein 6.5 Albumin 2.5 L Globulin 4.0 Albumin/Globulin Ratio 0.6 L Triglycerides Procalcitonin 0.38 H POC Glucose 324 H 05/29/20 05/29/20 05/29/20 11:40 17:23 22:47 WBC RBC Hgb Hct MCV MCH MCHC RDW Std Deviation RDW Coeff of Osorio Plt Count MPV D-Dimer Quant (PE/DVT) 1.49 H* Specimen Type Sample Site pH Bicarbonate Actual Total CO2 Base Excess O2 Saturation O2 % ABG pCO2 ABG pO2 Pete Test Respiration Rate O2 Delivery Device Vent Mode Tidal Volume POC PEEP Sodium Potassium Chloride Carbon Dioxide Anion Gap BUN Creatinine Estim Creat Clear Calc Est GFR (MDRD) Af Amer Est GFR (MDRD) Non-Af BUN/Creatinine Ratio Glucose Calcium Total Bilirubin Direct Bilirubin AST ALT Alkaline Phosphatase Total Creatine Kinase Troponin I B-Natriuretic Peptide Total Protein Albumin Globulin Albumin/Globulin Ratio Triglycerides Procalcitonin POC Glucose 319 H 312 H 05/30/20 05/30/20 03:54 03:54 WBC 9.3 RBC 5.15 Hgb 14.5 Hct 44.4 MCV 86.2 MCH 28.2 MCHC 32.7 RDW Std Deviation 41.3 RDW Coeff of Osorio 13.2 Plt Count 314 MPV 9.9 D-Dimer Quant (PE/DVT) Specimen Type Sample Site pH Bicarbonate Actual Total CO2 Base Excess O2 Saturation O2 % ABG pCO2 ABG pO2 Pete Test Respiration Rate O2 Delivery Device Vent Mode Tidal Volume POC PEEP Sodium 139 Potassium 4.4 Chloride 107 Carbon Dioxide 22.0 Anion Gap 10 BUN 19 H Creatinine 0.68 Estim Creat Clear Calc 85.10 Est GFR (MDRD) Af Amer 117 Est GFR (MDRD) Non-Af 97 BUN/Creatinine Ratio 28.1 H Glucose 340 H Calcium 8.2 L Total Bilirubin 0.60 Direct Bilirubin AST 31 ALT 43 Alkaline Phosphatase 138 H Total Creatine Kinase Troponin I B-Natriuretic Peptide Total Protein 6.5 Albumin 2.2 L Globulin 4.3 H Albumin/Globulin Ratio 0.5 L Triglycerides Procalcitonin POC Glucose Microbiology 05/28/20 21:15 Sputum, Induced/Lukens Gram Stain - Final 05/26/20 04:05 Blood Culture (Wb) - Right Hand Blood Culture - Preliminary No growth in 48 hours. 05/26/20 03:48 Blood Culture (Wb) - Anticubital Right Blood Culture - Preliminary No growth in 48 hours. Clinical Impression(s) from Imaging Studies Chest X-Ray 05/26/20 03:41 IMPRESSION: Multifocal pneumonia to include viral pneumonia. Electronically Signed: Forrets Cee MD at 4:28 EST , Service support , Chest CTA 05/26/20 04:23 IMPRESSION: No pulmonary embolus or thoracic aortic dissection. Diffuse groundglass opacities compatible with multifocal pneumonia very suggestive of viral pneumonia. Multiple small mediastinal lymph nodes. Electronically Signed: Forrest Cee MD at 5:18 EST , Service support , Chest X-Ray 05/28/20 04:38 IMPRESSION: GA confluent airspace disease likely pneumonia multilobular and bilateral. Aeration has worsened. Electronically Signed: Nighat Neal MD at 5:48 EST , Service support , Chest X-Ray 05/28/20 19:20 IMPRESSION: 1. Tubes and catheters as described. 2. Bilateral lower lobe pulmonary infiltrates unchanged from prior exam. Electronically Signed: Xavier Beach DO at 19:57 EST Tel [phone], Service support , KUB X-Ray 05/28/20 19:20 IMPRESSION: 1. OG tube as described. 2. No acute intra-abdominal process. 3. Persistent bibasilar infiltrates. Electronically Signed: Xavier Beach DO at 19:52 EST Tel [phone], Service support , Medical Necessity - Tobacco Use Smoking Status: Former smoker Assessment/Plan All Active Problems (This Medical Record has been edited. Action required.) Pneumonia due to COVID-19 virus (Acute) Respiratory insufficiency (Acute) SARS (severe acute respiratory syndrome) (Acute) RECOMMENDATIONS: 1. Continue to wean FiO2 and PEEP to maintain oxygen saturations at or above 90%. 2. Wean Levophed to maintain a mean arterial pressure at or above 65 mmHg. 3. Continue Decadron and remdesivir. 4. Continue Lovenox as ordered. 5. Continue Lantus and sliding scale insulin coverage. 6. Continue tube feeds as tolerated. IMPRESSIONS: 1. Acute hypoxemic respiratory failure secondary to COVID-19 pneumonia The patient continued to decompensate from a respiratory perspective following admission, eventually requiring ICU transfer and subsequent intubation on May 28. She will be continued on remdesivir and Decadron as ordered. We will continue to monitor liver and renal function accordingly. Continue to wean FiO2 and PEEP to maintain oxygen saturations at or above 90%. Continue tube feeds as tolerated. 2. Distributive shock The patient developed hemodynamic compromise as a consequence of sedative medication use. She was subsequently placed on Levophed, which will be titrated to maintain a mean arterial pressure at or above 65 mmHg. 3. Acute kidney injury Improved. Likely prerenal in etiology with component of ischemic ATN in the setting of #2. Continue current supportive measures including vasopressor support to maintain hemodynamic stability. Continue to monitor urine output. No current indication for renal replacement therapy. 4. Poorly controlled diabetes mellitus Continue Lantus and sliding scale insulin coverage. 5. Transaminitis Potentially related to acute infection versus fatty liver disease. Continue to monitor closely in light of remdesivir utilization. 6. Obesity/GERD Complicates care, management, recovery and prognosis. Physical therapy to work with the patient once respiratory status has improved. TIME: 35 minutes of critical care time, independent of procedures, was spent addressing the patient's acute hypoxemic respiratory failure, COVID-19 pneumonia, distributive shock, acute kidney injury, diabetes mellitus, review of all data and collaboration with the care team. ([id number]) [phone]: [id number] Critical care first hour
[2020-05-30] MEDS: Acetaminophen 650 MG/20 ML UDC GT ×2 (05:43→21:53)
[2020-05-30 06:16] LABS: Bedside Glucose 334 mg/dL (70-110)
--- NOTE | 2020-05-30 07:23 | PCM.PN.HOSP ---
Patient Problems: Active and Suspected Problems (This Medical Record has been edited. Action required.) Pneumonia due to COVID-19 virus (Acute) Respiratory insufficiency (Acute) SARS (severe acute respiratory syndrome) (Acute) Reason for Visit: Hypoxic respiratory failure COVID-19 pneumonia Subjective: Patient seen remains on the vent her FiO2 has been weaned down. Cultures (urine blood as well as sputum) sent the day prior, results pending Objective: GENERAL:on the vent HEENT: Atraumatic; ET tube in place EYES; Anicteric, Normal Conjunctiva NECK; supple, normal thyroid, RESPIRATORY: Diminished to auscultation CARDIOVASCULAR: Regular S1 S2, GI: soft, normoactive bowel sounds, : No Renal angle tenderness; EXTREMITIES: edema, no clubbing, MUSCULOSKELETAL: no muscle waisting NEURO: on the vent SKIN: No Rash Vitals/I&O's: Vital Signs Temp Pulse Resp BP Pulse Ox 100.9 F H 70 20 H 121/45 H 93 05/30/20 06:00 05/30/20 07:14 05/30/20 06:00 05/30/20 06:00 05/30/20 06:00 Oxygen Flow Rate (L/min) 8 Oxygen Delivery Method Mechanical Ventilator Weight: 84.4 kg Body Mass Index (BMI) 28.7 Finger Stick Blood Glucose 377 Intake and Output for Last 24 Hours 05/28/20 05/29/20 05/30/20 23:59 23:59 23:59 Intake Total 1234.28 / 1408.88 3013.03 / 3045.13 912.41 / 912.41 Output Total 0 / 200 2430 / 2430 475 / 475 Balance 1234.28 / 1208.88 583.03 / 615.13 437.41 / 437.41 Microbiology Past 72 Hours 05/28/20 21:15 Sputum, Induced/Lukens Gram Stain - Final 05/26/20 04:05 Blood Culture (Wb) - Right Hand Blood Culture - Preliminary No growth in 48 hours. 05/26/20 03:48 Blood Culture (Wb) - Anticubital Right Blood Culture - Preliminary No growth in 48 hours. Laboratory Results 05/29/20 10:56: POC Glucose 324 H 05/29/20 11:40: D-Dimer Quant (PE/DVT) 1.49 H* 12/19/20 17:23: POC Glucose 319 H 05/29/20 22:47: POC Glucose 312 H 05/30/20 03:54: Sodium 139, Potassium 4.4, Chloride 107, Carbon Dioxide 22.0, Anion Gap 10, BUN 19 H, Creatinine 0.68, Estim Creat Clear Calc 85.10, Est GFR (MDRD) Af Amer 117, Est GFR (MDRD) Non-Af 97, BUN/Creatinine Ratio 28.1 H, Glucose 340 H, Calcium 8.2 L, Total Bilirubin 0.60, AST 31, ALT 43, Alkaline Phosphatase 138 H, Total Protein 6.5, Albumin 2.2 L, Globulin 4.3 H, Albumin/Globulin Ratio 0.5 L 05/30/20 03:54: WBC 9.3, RBC 5.15, Hgb 14.5, Hct 44.4, MCV 86.2, MCH 28.2, MCHC 32.7, RDW Std Deviation 41.3, RDW Coeff of Osorio 13.2, Plt Count 314, MPV 9.9 05/30/20 05:40: POC Glucose 334 H Current Medications Acetaminophen (Acetaminophen 650 Mg/20 Ml Udc) 650 mg GT Q6H PRN PRN PRN Reason: FEVER Last Admin: 05/30/20 05:43 Dose: 650 mg Documented by: Albuterol Sulfate (Albuterol Ih 8.5 Gm (Proair) Inhaler (200 Puffs)) 2 puff INHALATION Q4H PRN PRN PRN Reason: SOB/WHEEZING Albuterol Sulfate (Albuterol 2.5 Mg/3 Ml Vial.Neb.) 2.5 mg INHALATION Q2H PRN PRN PRN Reason: dyspnea, wheezing Chlorhexidine Gluconate (Chlorhexidine 15 Ml) 15 ml PO BID [facility] Last Admin: 05/29/20 20:50 Dose: 15 ml Documented by: Dexamethasone Sodium Phosphate (Dexamethasone 10 Mg/Ml Vial) 6 mg IV DAILY [facility] Stop: 06/04/20 10:01 Last Admin: 05/29/20 08:58 Dose: 6 mg Documented by: Dextrose (Dextrose 50%-Water 25 Gm/50 Ml Disp.Syrin) 0 gm IV X1 PRN; Protocol PRN Reason: Hypoglycemia Enoxaparin Sodium (Enoxaparin 40 Mg/0.4 Ml Syringe) 40 mg SC BID [facility] Last Admin: 05/29/20 22:48 Dose: 40 mg Documented by: Glucagon (Glucagon 1 Mg/Ml Syringe) 1 mg IM .X1 PRN PRN Reason: Hypoglycemia Guaifenesin (Guaifenesin 1,200 Mg Tablet) 1,200 mg PO BID [facility] Last Admin: 05/29/20 20:50 Dose: Not Given Documented by: Sodium Chloride () 250 mls @ 15 mls/hr IV .[id number] PRN PRN Reason: Saline Flush Last Infusion: 05/27/20 19:00 Dose: 0 mls/hr Documented by: Sodium Chloride () 250 mls @ 15 mls/hr IV .[id number] PRN PRN Reason: Additional IVPB Infusion Remdesivir 100 mg/ Sodium (Chloride) 250 mls @ 125 mls/hr IV DAILY [facility]; Protocol Stop: 05/30/20 11:59 Last Infusion: 05/29/20 16:54 Dose: Infused Documented by: Famotidine 20 mg/ Sodium (Chloride) 10 mls @ 300 mls/hr IV Q12 [facility] Last Infusion: 05/29/20 22:53 Dose: Infused Documented by: Fentanyl Citrate 1,000 mcg/ (Sodium Chloride) 100 mls @ 5 mls/hr CONT INF .Q20H [facility]; Protocol Last Titration: 05/30/20 06:00 Dose: 150 mcg/hr, 15 mls/hr Documented by: Dexmedetomidine HCl 400 mcg/ (Sodium Chloride) 100 mls @ 9.613 mls/hr CONT INF .[id number] [facility]; Protocol Last Titration: 05/30/20 06:00 Dose: 0.6 mcg/kg/hr, 11.5 mls/hr Documented by: Norepinephrine Bitartrate 8 mg (/ Sodium Chloride) 250 mls @ 9.375 mls/hr CONT INF .[id number] [facility]; Protocol Last Titration: 05/30/20 06:00 Dose: 6 mcg/min, 11.3 mls/hr Documented by: Enteral Nutritional Formula (Vital Af 1.2 Rick Liquid) 1,000 mls @ 60 mls/hr GT .[id number] [facility] Last Admin: 05/30/20 04:29 Dose: Not Given Documented by: Insulin Glargine (Insulin Glargine 100 Units/Ml Pen) 10 units SC BID [facility] Last Admin: 05/29/20 22:49 Dose: 10 u Documented by: Insulin Human Lispro (Insulin Lispro 100 Unit/Ml Insuln.Pen) 0 unit SC Q6 [facility]; Protocol Last Admin: 05/30/20 05:41 Dose: 5 u Documented by: Melatonin (Melatonin 3 Mg Tablet) 3 mg PO QHS PRN PRN PRN Reason: INSOMNIA Ondansetron HCl (Ondansetron 4 Mg/2 Ml Vial) 4 mg IV Q8H PRN PRN PRN Reason: NAUSEA/VOMITING Sodium Chloride (0.9% Saline Lock 10 Ml Syringe) 10 - 40 ml IV UD PRN PRN Reason: SALINE FLUSH Last Admin: 05/29/20 05:02 Dose: 20 ml Documented by: STROKE Vital Signs/Narrative: Vital Signs Temp Pulse Resp BP Pulse Ox 05/30/20 07:14 70 05/30/20 06:00 100.9 F H 71 20 H 121/45 H 93 05/30/20 05:00 100.7 F H 72 20 H 123/43 H 95 05/30/20 04:43 72 21 H 95 05/30/20 04:00 100.7 F H 73 21 H 121/43 H 92 Medical Necessity - Tobacco Use Smoking Status: Former smoker Assessment/Plan All Active Problems (This Medical Record has been edited. 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 Patient was found to be hypoxic on admission with oxygen saturation 83% on room air. CT of the chest obtained on admission demonstrated Diffuse groundglass opacities compatible with multifocal pneumonia very suggestive of viral pneumonia was noted. Also patient had multiple small mediastinal lymph nodes. Patient was also found to have mild transaminitis admitted to the Covid unit for subsequent management 1. Acute hypoxic respiratory failure secondary to COVID-19 pneumonitis -CT of the chest obtained on admission demonstrated Diffuse groundglass opacities compatible with multifocal pneumonia very suggestive of viral pneumonia was noted. Also patient had multiple small mediastinal lymph nodes. Patient was also found to have mild transaminitis admitted to the Covid unit for subsequent management. Patient was placed on supplemental oxygen and Decadron as well as remdesivir. Consult placed to both pulmonary medicine as well as infectious disease. Patient was placed on high flow oxygen titrated to keep saturation greater than 90 -05/28/2020; Was transferred to the intensive care unit following deterioration in her respiratory status. Noninvasive ventilation. Currently on AVAPS with an FiO2 requirement of 100% ?05/29/2020;Respiratory status deteriorated during the evening resulting in patient being intubated. Currently remains on the vent 2. Septic shock -Secondary to COVID-19 pneumonia. Patient is on Decadron and remdesivir in addition to Levophed -05/30/2020; Patient seen remains on the vent her FiO2 has been weaned down. Cultures (urine blood as well as sputum) sent the day prior, results pending 3. Hyperglycemia ?Patient not a known diabetic however hemoglobin A1c on admission was 10.8 consistent with newly diagnosed diabetes mellitus type 2. Patient was placed on long-acting insulin in addition to Accu-Cheks before meals and at bedtime with sliding scale coverage consultation placed to diabetic education and dietitian 4. Hyponatremia ?Secondary to combination of hypovolemic hyponatremia as well as hyperglycemia on IV fluid with subsequent monitoring of electrolyte 5. Transaminitis ?Secondary to COVID-19 infection. Monitoring daily liver function 6. Obesity with BMI of 31.3 ?Weight loss advised 7. GERD -Placed on famotidine 8. Hypokalemia -corrected per protocol 9. DVT prophylaxis ?Lovenox 40 mg SC every 12 Q12 Inpatient E&M: [id number] [place] [id number]
[2020-05-30] MEDS: Famotidine 200 MG/20 ML MDV 20 MG in 0.9% Normal Saline (Pres. free 8 ML 330 MG IV (08:39)
[2020-05-30] MEDS: Enoxaparin 40 MG/0.4 ML Syringe SC ×2 (08:39→21:53)
[2020-05-30] MEDS: dexAMETHasone 10 MG/ML Vial 6 MG IV (08:40)
[2020-05-30] MEDS: Chlorhexidine 15 ML PO ×2 (08:41→22:00)
--- NOTE | 2020-05-30 11:01 | NURSING ---
one yellow colored ring with clear stone taken off of left ring finger and placed in specimen cup. one yellow colored ring with one clear stone and one one green colored stone taken off right ring finger and placed in same specimen up. specimen cup then placed in patient's purse.
[2020-05-30 12:20] LABS: Bedside Glucose 378 mg/dL (70-110)
[2020-05-30] MEDS: Menthol/Lanolin/Calamine/Znox 113 GM Tube 1 APPLIC TOPICAL ×2 (13:12→21:58)
[2020-05-30] MEDS: Nystatin Powder 15gm Bottle 1 APPLIC TOPICAL ×2 (13:14→21:58)
[2020-05-30] MEDS: Vital AF 1.2 Cal Liquid 1,000 ML 60 ML GT (15:27)
[2020-05-30] MEDS: Insulin Lispro 100 UNIT/ML INSULN.PEN 10 UNIT SC ×2 (17:42→23:32)
--- NOTE | 2020-05-30 19:43 | CPS ---
CIRCUIT COURT CLERK tried to lavage patient and suction catheter was becoming hard to withdraw out of ET Tube. CIRCUIT COURT CLERK was able to get catheter out, but when suctioning again it would not pass. Possible bitting down of ET Tube to be reason. CIRCUIT COURT CLERK tried to reposition bite block, but patient kept using tongue to push bite block out. RN increased sedation and with help of a 2nd [address] CLERK bite block and tube were able to be adequately repositioned at 7.5 @ 23 at the lip. Bilateral breath sounds heard with good return volumes on ventilator. Lavaging was able to performed x2 with thick duarte secretions being suctioned out. Cuff was reinflated to proper firmness.
[2020-05-30] MEDS: 0.9% Saline Lock 10 ML Syringe IV ×2 (21:53→22:47)
[2020-05-30] MEDS: Famotidine 200 MG/20 ML MDV 20 MG in 0.9% Normal Saline (Pres. free 8 ML 300 MG IV (22:03)
[2020-05-30 22:40] LABS: Bedside Glucose 460 mg/dL (70-110)
[2020-05-31] VITALS (74 sets, daily range): BP systolic 74–153; BP diastolic 24–98; PULSE 66–125; RESP 14–25; TEMP 37.4–38.8; O2SAT 90–98
[2020-05-31 00:50] LABS: Bedside Glucose 347 mg/dL (70-110)
[2020-05-31] MEDS: TITRATION PARAMETER CHANGE 1 EACH IV (02:09)
[2020-05-31 04:06] LABS: Hematocrit 42.5 % (37-47); Hemoglobin 13.8 g/dL (12.0-15.0); Mean Corp Hgb Conc 32.5 g/dL (32-36); Mean Corpuscular Hgb 28.5 pg (27.0-32.0); Mean Corpuscular Volume 87.8 fL (81-99); Platelet Count 364 K/mm3 (150-450); RBC Distribution Width CV 13.3 % (11.6-14.6); RBC Distribution Width SD 42.7 fl (35.1-43.9); Red Blood Count 4.84 M/mm3 (4.2-5.4); White Blood Count 9.3 K/mm3 (4.4-11.0)
[2020-05-31 04:26] LABS: ALB/GLOB Ratio 0.5 RATIO (0.9-2.4); AST(SGOT) 20 U/L (15-37); Alanine Aminotransfer ALT/SGPT 30 U/L (13-56); Alkaline Phosphatase 125 U/L (45-117); Anion Gap 8 (5-15); BUN 22 mg/dL (7-18); BUN/Creat Ratio 34.2 RATIO (10-20); Calcium,Total 7.8 mg/dL (8.5-10.1); Chloride 110 mmol/L (98-107); Creatinine, Serum 0.64 mg/dL (0.55-1.02); EST Glomerular Filtration Rate 102 mL/min (>60); Est Glom Filt Rate - Afr Amer 123 mL/min (>60); Estimated Creatinine Clearance 90.42 ml/min; Glucose 352 mg/dL (74-106); Sodium Level 142 mmol/L (136-145)
--- NOTE | 2020-05-31 05:00 | NURSING ---
This RN in the room and pt. got very agitated. Precedex maxed and Fentanyl increased. Pt. continually biting/chewing on the ETT. Pt. getting very worked up; HR in 130's, RR 30's, sats down in the 80's. Respiratory came in and O2 increased. Tried to calm pt without success. Order received to give Haldol x1 and change sedation to Propofol.
[2020-05-31] MEDS: Insulin Lispro 100 UNIT/ML INSULN.PEN SC ×4 (05:01→23:46)
[2020-05-31] MEDS: Insulin Lispro 100 UNIT/ML INSULN.PEN 10 UNIT SC ×4 (05:02→23:46)
[2020-05-31] MEDS: 0.9% Saline Lock 10 ML Syringe IV ×5 (05:02→19:26)
[2020-05-31] MEDS: Acetaminophen 650 MG/20 ML UDC GT (05:13)
[2020-05-31] MEDS: Haloperidol Lactate 5 MG/ML Vial IV (05:38)
[2020-05-31] MEDS: Propofol 10MG/Ml 1,000 MG/100 ML Bottle 5.1 MG CONT INF (05:50)
[2020-05-31 06:40] LABS: Bedside Glucose 358 mg/dL (70-110)
[2020-05-31 07:01] LABS: CPK Total, Creatine Kinase 18 U/L (26-192); Triglycerides 196 mg/dL
--- NOTE | 2020-05-31 07:36 | PN_ITS ---
Subjective: Patient did okay overnight from a hemodynamic standpoint. However, patient did have significant fever and agitation despite being on high Precedex requirements. Levophed is currently at low dosing, but has had to be increased intermittently for hypotension associated with sedation. Patient continues to have periods of significant vent dyssynchrony and was biting on the tube leading to hypoxia. General: - - Intubated and sedated. No dyssynchrony on my evaluation. Obese. HEENT: Atraumatic, PERRLA, EOMI, Normocephalic, - - Scleral injection without icterus Oral: Moist Mucosa, No Gingival or Mucosal Lesions/ Ulcerations Neck: Supple, No JVD, No Nodes, Trachea Midline Lungs: No rhonchi, No wheeze, No rales, Diminished, - - Symmetric expansion. No dullness to percussion. Cardiovascular: Regular rate, Regular Rhythm, Normal S1, Normal S2, No murmurs, No rub noted, No Gallop Abdomen: Bowel Sounds Present, Soft, Non Tender, Non-Distended, Obese Extremities: No clubbing, No cyanosis, No edema Skin: No rashes, No breakdown Musculoskeletal: No Tenderness to Palpation of Joints or Extremities Lymphatic: No Cervical, Supraclavicular, or Inguinal Adenopathy Neurological: Cranial nerves II-XII grossly intact, Neuro grossly intact, Motor Exam 5/5 strength throughout Psych/Mental Status: Flat Affect Vital Signs Temp Pulse Resp BP Pulse Ox 38.2 C H 68 22 H 103/36 L 95 05/31/20 07:00 05/31/20 07:00 05/31/20 07:00 05/31/20 07:30 05/31/20 07:00 Oxygen Flow Rate (L/min) 8 Oxygen Delivery Method Mechanical Ventilator Weight: 85.6 kg Body Mass Index (BMI) 28.7 Finger Stick Blood Glucose 377 Intake and Output for Last 24 Hours 05/29/20 05/30/20 05/31/20 23:59 23:59 23:59 Intake Total 3013.03 / 3045.13 3069.27 / 3109.07 1022.63 / 1022.63 Output Total 2430 / 2430 2725 / 2725 300 / 300 Balance 583.03 / 615.13 344.27 / 384.07 722.63 / 722.63 Labs (Last 48 Hours) 05/29/20 05/29/20 05/29/20 10:56 11:40 17:23 WBC RBC Hgb Hct MCV MCH MCHC RDW Std Deviation RDW Coeff of Osorio Plt Count MPV D-Dimer Quant (PE/DVT) 1.49 H* Sodium Potassium Chloride Carbon Dioxide Anion Gap BUN Creatinine Estim Creat Clear Calc Est GFR (MDRD) Af Amer Est GFR (MDRD) Non-Af BUN/Creatinine Ratio Glucose Calcium Total Bilirubin AST ALT Alkaline Phosphatase Total Creatine Kinase Total Protein Albumin Globulin Albumin/Globulin Ratio Triglycerides POC Glucose 324 H 319 H 05/29/20 05/30/20 05/30/20 22:47 03:54 03:54 WBC 9.3 RBC 5.15 Hgb 14.5 Hct 44.4 MCV 86.2 MCH 28.2 MCHC 32.7 RDW Std Deviation 41.3 RDW Coeff of Osorio 13.2 Plt Count 314 MPV 9.9 D-Dimer Quant (PE/DVT) Sodium 139 Potassium 4.4 Chloride 107 Carbon Dioxide 22.0 Anion Gap 10 BUN 19 H Creatinine 0.68 Estim Creat Clear Calc 85.10 Est GFR (MDRD) Af Amer 117 Est GFR (MDRD) Non-Af 97 BUN/Creatinine Ratio 28.1 H Glucose 340 H Calcium 8.2 L Total Bilirubin 0.60 AST 31 ALT 43 Alkaline Phosphatase 138 H Total Creatine Kinase Total Protein 6.5 Albumin 2.2 L Globulin 4.3 H Albumin/Globulin Ratio 0.5 L Triglycerides POC Glucose 312 H 05/30/20 05/30/20 05/30/20 05:40 10:32 17:17 WBC RBC Hgb Hct MCV MCH MCHC RDW Std Deviation RDW Coeff of Osorio Plt Count MPV D-Dimer Quant (PE/DVT) Sodium Potassium Chloride Carbon Dioxide Anion Gap BUN Creatinine Estim Creat Clear Calc Est GFR (MDRD) Af Amer Est GFR (MDRD) Non-Af BUN/Creatinine Ratio Glucose Calcium Total Bilirubin AST ALT Alkaline Phosphatase Total Creatine Kinase Total Protein Albumin Globulin Albumin/Globulin Ratio Triglycerides POC Glucose 334 H 378 H 460 H* 05/30/20 05/31/20 05/31/20 23:27 03:55 03:55 WBC 9.3 RBC 4.84 Hgb 13.8 Hct 42.5 MCV 87.8 MCH 28.5 MCHC 32.5 RDW Std Deviation 42.7 RDW Coeff of Osorio 13.3 Plt Count 364 MPV 10.0 D-Dimer Quant (PE/DVT) Sodium 142 Potassium 4.0 Chloride 110 H Carbon Dioxide 24.0 Anion Gap 8 BUN 22 H Creatinine 0.64 Estim Creat Clear Calc 90.42 Est GFR (MDRD) Af Amer 123 Est GFR (MDRD) Non-Af 102 BUN/Creatinine Ratio 34.2 H Glucose 352 H Calcium 7.8 L Total Bilirubin 0.40 AST 20 ALT 30 Alkaline Phosphatase 125 H Total Creatine Kinase Total Protein 6.0 L Albumin 2.0 L Globulin 4.0 Albumin/Globulin Ratio 0.5 L Triglycerides POC Glucose 347 H 05/31/20 05/31/20 03:55 04:59 WBC RBC Hgb Hct MCV MCH MCHC RDW Std Deviation RDW Coeff of Osorio Plt Count MPV D-Dimer Quant (PE/DVT) Sodium Potassium Chloride Carbon Dioxide Anion Gap BUN Creatinine Estim Creat Clear Calc Est GFR (MDRD) Af Amer Est GFR (MDRD) Non-Af BUN/Creatinine Ratio Glucose Calcium Total Bilirubin AST ALT Alkaline Phosphatase Total Creatine Kinase 18 L Total Protein Albumin Globulin Albumin/Globulin Ratio Triglycerides 196 POC Glucose 358 H Microbiology 05/26/20 04:05 Blood Culture (Wb) - Right Hand Blood Culture - Final No growth in 5 days. 05/26/20 03:48 Blood Culture (Wb) - Anticubital Right Blood Culture - Final No growth in 5 days. 05/29/20 11:00 Urine Catheter - Cuellar Urine Culture - Preliminary Presumptive E. coli 05/28/20 21:15 Sputum, Induced/Lukens Gram Stain - Final 05/28/20 21:15 Sputum, Induced/Lukens Respiratory Culture - Preliminary Medical Necessity - Tobacco Use Smoking Status: Former smoker Assessment/Plan All Active Problems (This Medical Record has been edited. Action required.) Pneumonia due to COVID-19 virus (Acute) Respiratory insufficiency (Acute) SARS (severe acute respiratory syndrome) (Acute) RECOMMENDATIONS: 1. Continue to wean FiO2 and PEEP to maintain oxygen saturations at or above 90%. 2. Wean Levophed to maintain a mean arterial pressure at or above 65 mmHg. 3. Continue Decadron and remdesivir. 4. Continue Lovenox as ordered. 5. Increase Lantus and continue sliding scale insulin coverage. 6. Continue tube feeds as tolerated. 7. Transition from Precedex to propofol to help with vent synchrony. Obtain chest x-ray to evaluate ET tube position given coughing fits IMPRESSIONS: 1. Acute hypoxemic respiratory failure secondary to COVID-19 pneumonia The patient continued to decompensate from a respiratory perspective following admission, eventually requiring ICU transfer and subsequent intubation on May 28. She will be continued on remdesivir and Decadron as ordered. We will continue to monitor liver and renal function accordingly. Continue to wean FiO2 and PEEP to maintain oxygen saturations at or above 90%. Continue tube feeds as tolerated. Transition sedation to help with vent synchrony. 2. Septic shock The patient developed hemodynamic compromise as a consequence of sedative medication use and E. coli UTI. Patient currently on appropriate antibiotics. She was subsequently placed on Levophed, which will be titrated to maintain a mean arterial pressure at or above 65 mmHg. 3. Acute kidney injury Resolved. Likely prerenal in etiology with component of ischemic ATN in the setting of #2. Continue current supportive measures including vasopressor support to maintain hemodynamic stability. Continue to monitor urine output. No current indication for renal replacement therapy. 4. Poorly controlled diabetes mellitus Continue Lantus and sliding scale insulin coverage. Titrate Lantus as necessary to keep blood sugars within acceptable range. 5. Transaminitis Resolved. Potentially related to acute infection versus fatty liver disease. Continue to monitor closely in light of remdesivir utilization. 6. Obesity/GERD Complicates care, management, recovery and prognosis. Physical therapy to work with the patient once respiratory status has improved. TIME: 33 minutes of critical care time, independent of procedures, was spent addre ssing the patient's acute hypoxemic respiratory failure, COVID-19 pneumonia, distributive shock, acute kidney injury, diabetes mellitus, review of all data and collaboration with the care team. (6:30 AM to 7:40 AM) [id number]: [id number] Critical care first hour
[2020-05-31] MEDS: Albuterol 2.5 MG/3 ML VIAL.NEB. INHALATION (07:45)
[2020-05-31] MEDS: dexAMETHasone 10 MG/ML Vial 6 MG IV (08:28)
[2020-05-31] MEDS: Enoxaparin 40 MG/0.4 ML Syringe SC ×2 (08:28→22:34)
[2020-05-31] MEDS: Nystatin Powder 15gm Bottle 1 APPLIC TOPICAL ×2 (08:29→22:33)
[2020-05-31] MEDS: Menthol/Lanolin/Calamine/Znox 113 GM Tube 1 APPLIC TOPICAL ×2 (08:29→22:33)
[2020-05-31] MEDS: Chlorhexidine 15 ML PO ×2 (08:31→20:43)
--- NOTE | 2020-05-31 08:37 | RAD_ITS ---
STUDY: X-RAY CHEST REASON FOR EXAM: Female, 55 years old. Vent dyssynchrony TECHNIQUE: Single AP portable view of the chest. COMPARISON: Comparison is made with prior study dated 05/28/2020. FINDINGS: An endotracheal tube is in situ. The tip is at 2.5 cm proximal to the damon. An oral gastric tube is seen with the tip below the left hemidiaphragm. EKG electrodes are seen. A right-sided PICC line catheter has been placed with the tip at the junction of the superior vena cava and right atrium. Persistent bilateral patchy infiltrates although there has been a mild improvement in the in both lungs. There is no demonstrated pleural abnormality. Normal size heart. Normal mediastinum and lillie. Normal visualized pulmonary arteries. Normal visualized aortic arch and descending thoracic aorta. Normal visualized thoracic spine. Normal visualized ribs, clavicles, and shoulders. There is no demonstrated abnormality of the visualized soft tissue structures of the upper abdomen. RAD/Chest 1 View IMPRESSION: All the support tubes are in good position. Residual bilateral pulmonary infiltrates although there has been a mild degree of improvement as compared to prior study. Electronically Signed: Mauricio Sifuentes, at 9:14 EST , Service support ,
[2020-05-31] MEDS: QUEtiapine 25 MG Tablet 50 MG GT ×2 (10:27→22:35)
[2020-05-31] MEDS: Famotidine 200 MG/20 ML MDV 20 MG in 0.9% Normal Saline (Pres. free 8 ML 300 MG IV ×2 (10:27→23:44)
[2020-05-31] MEDS: Vital AF 1.2 Cal Liquid 1,000 ML 60 ML GT ×2 (10:28→22:42)
--- NOTE | 2020-05-31 11:52 | CASEMGMT ---
RN CM Note: participated in ICU interdisciplinary rounds. Patient remains intubated and on ventilator @ 70% oxygen. Continues on Levophed, Fentanyl, Diprivan gtt, Tube feeding @ 60 ml/hr. Mobility screening failed, PT/OT on hold for today. Pt remains agitated and Serquel BID ordered. DC Planning deferred @ this time. Jimmy HERNANDEZN RN ACM
[2020-05-31 12:00] LABS: Bedside Glucose 364 mg/dL (70-110)
--- NOTE | 2020-05-31 15:03 | PCM.PN.ID ---
Patient Problems: Active and Suspected Problems (This Medical Record has been edited. Action required.) Pneumonia due to COVID-19 virus (Acute) Respiratory insufficiency (Acute) SARS (severe acute respiratory syndrome) (Acute) Subjective: On vent, pressors. Fever last night. - Physical Exam Vitals/I&O's: Vital Signs Temp Pulse Resp BP Pulse Ox 99.7 F H 101 H 23 H 130/43 H 94 05/31/20 12:00 05/31/20 12:15 05/31/20 12:00 05/31/20 12:15 05/31/20 12:00 Oxygen Flow Rate (L/min) 8 Oxygen Delivery Method Mechanical Ventilator Weight: 85.6 kg Body Mass Index (BMI) 28.7 Finger Stick Blood Glucose 377 Intake and Output for Last 24 Hours 05/29/20 05/30/20 05/31/20 23:59 23:59 23:59 Intake Total 3013.03 / 3045.13 3069.27 / 3109.07 2439.17 / 2439.17 Output Total 2430 / 2430 2725 / 2725 1140 / 1140 Balance 583.03 / 615.13 344.27 / 384.07 1299.17 / 1299.17 General: Non-Cooperative Lungs: Diminished Cardiovascular: Tachycardic Abdomen: Soft, Non Tender, Non-Distended Skin: No rashes Microbiology Past 72 Hours 05/28/20 21:15 Sputum, Induced/Lukens Gram Stain - Final 05/28/20 21:15 Sputum, Induced/Lukens Respiratory Culture - Final 05/29/20 11:00 Urine Catheter - Cuellar Urine Culture - Final Presumptive E. coli 05/26/20 04:05 Blood Culture (Wb) - Right Hand Blood Culture - Final No growth in 5 days. 05/26/20 03:48 Blood Culture (Wb) - Anticubital Right Blood Culture - Final No growth in 5 days. Laboratory Results 05/30/20 17:17: POC Glucose 460 H* 05/30/20 23:27: POC Glucose 347 H 05/31/20 03:55: Sodium 142, Potassium 4.0, Chloride 110 H, Carbon Dioxide 24.0, Anion Gap 8, BUN 22 H, Creatinine 0.64, Estim Creat Clear Calc 90.42, Est GFR (MDRD) Af Amer 123, Est GFR (MDRD) Non-Af 102, BUN/Creatinine Ratio 34.2 H, Glucose 352 H, Calcium 7.8 L, Total Bilirubin 0.40, AST 20, ALT 30, Alkaline Phosphatase 125 H, Total Protein 6.0 L, Albumin 2.0 L, Globulin 4.0, Albumin/Globulin Ratio 0.5 L 05/31/20 03:55: WBC 9.3, RBC 4.84, Hgb 13.8, Hct 42.5, MCV 87.8, MCH 28.5, MCHC 32.5, RDW Std Deviation 42.7, RDW Coeff of Osorio 13.3, Plt Count 364, MPV 10.0 05/31/20 03:55: Total Creatine Kinase 18 L, Triglycerides 196 05/31/20 04:59: POC Glucose 358 H 05/31/20 11:50: POC Glucose 364 H Current Medications Acetaminophen (Acetaminophen 650 Mg/20 Ml Udc) 650 mg GT Q6H PRN PRN PRN Reason: FEVER Last Admin: 05/31/20 05:13 Dose: 650 mg Documented by: Albuterol Sulfate (Albuterol Ih 8.5 Gm (Proair) Inhaler (200 Puffs)) 2 puff INHALATION Q4H PRN PRN PRN Reason: SOB/WHEEZING Albuterol Sulfate (Albuterol 2.5 Mg/3 Ml Vial.Neb.) 2.5 mg INHALATION Q2H PRN PRN PRN Reason: dyspnea, wheezing Last Admin: 05/31/20 07:45 Dose: 2.5 mg Documented by: Calamine/Phenol (Menthol/Lanolin/Calamine/Znox 113 Gm Tube) 1 applic TOPICAL BID OLLIE; Protocol Last Admin: 05/31/20 08:29 Dose: 1 applic Documented by: Chlorhexidine Gluconate (Chlorhexidine 15 Ml) 15 ml PO BID OLLIE Last Admin: 05/31/20 08:31 Dose: 15 ml Documented by: Dexamethasone Sodium Phosphate (Dexamethasone 10 Mg/Ml Vial) 6 mg IV DAILY OLLIE Stop: 06/04/20 10:01 Last Admin: 05/31/20 08:28 Dose: 6 mg Documented by: Dextrose (Dextrose 50%-Water 25 Gm/50 Ml Disp.Syrin) 0 gm IV X1 PRN; Protocol PRN Reason: Hypoglycemia Enoxaparin Sodium (Enoxaparin 40 Mg/0.4 Ml Syringe) 40 mg SC BID OLLIE Last Admin: 05/31/20 08:28 Dose: 40 mg Documented by: Glucagon (Glucagon 1 Mg/Ml Syringe) 1 mg IM .X1 PRN PRN Reason: Hypoglycemia Guaifenesin (Guaifenesin 1,200 Mg Tablet) 1,200 mg PO BID OLLIE Last Admin: 05/31/20 08:30 Dose: Not Given Documented by: Sodium Chloride () 250 mls @ 15 mls/hr IV .[id number] PRN PRN Reason: Saline Flush Last Infusion: 05/31/20 11:26 Dose: 15 mls/hr Documented by: Sodium Chloride () 250 mls @ 15 mls/hr IV .[id number] PRN PRN Reason: Additional IVPB Infusion Famotidine 20 mg/ Sodium (Chloride) 10 mls @ 300 mls/hr IV Q12 OLLIE Last Infusion: 05/31/20 10:29 Dose: Infused Documented by: Fentanyl Citrate 1,000 mcg/ (Sodium Chloride) 100 mls @ 5 mls/hr CONT INF .Q20H [facility]; Protocol Last Titration: 05/31/20 13:00 Dose: 175 mcg/hr, 17.5 mls/hr Documented by: Dexmedetomidine HCl 400 mcg/ (Sodium Chloride) 100 mls @ 10.7 mls/hr CONT INF .[id number] [facility]; Protocol Last Admin: 05/31/20 10:50 Dose: Not Given Documented by: Norepinephrine Bitartrate 8 mg (/ Sodium Chloride) 250 mls @ 9.375 mls/hr CONT INF .[id number] [facility]; Protocol Last Titration: 05/31/20 12:15 Dose: 15 mcg/min, 28.1 mls/hr Documented by: Enteral Nutritional Formula (Vital Af 1.2 Rick Liquid) 1,000 mls @ 60 mls/hr GT .[id number] OLLIE Last Admin: 05/31/20 10:28 Dose: 60 mls/hr Documented by: Piperacillin Sod/Tazobactam (Sod 3.375 gm/ Sodium Chloride) 50 mls @ 12.5 mls/hr IV Q8 OLLIE Last Admin: 05/31/20 13:51 Dose: 12.5 mls/hr Documented by: Propofol (Diprivan) 1,000 mg in 100 mls @ 5.136 mls/hr CONT INF .Q12H OLLIE; Protocol Last Titration: 05/31/20 13:00 Dose: 20 mcg/kg/min, 10.3 mls/hr Documented by: Insulin Glargine (Insulin Glargine 100 Units/Ml Pen) 50 units SC BID [facility] Last Admin: 05/31/20 08:28 Dose: 50 u Documented by: Insulin Human Lispro (Insulin Lispro 100 Unit/Ml Insuln.Pen) 0 unit SC Q6 OLLIE; Protocol Last Admin: 05/31/20 11:50 Dose: 8 u Documented by: Insulin Human Lispro (Insulin Lispro 100 Unit/Ml Insuln.Pen) 10 unit SC Q6 OLLIE Last Admin: 05/31/20 11:51 Dose: 10 u Documented by: Melatonin (Melatonin 3 Mg Tablet) 3 mg PO QHS PRN PRN PRN Reason: INSOMNIA Nystatin (Nystatin Powder 15gm Bottle) 1 applic TOPICAL BID [facility]; Protocol Last Admin: 05/31/20 08:29 Dose: 1 applic Documented by: Ondansetron HCl (Ondansetron 4 Mg/2 Ml Vial) 4 mg IV Q8H PRN PRN PRN Reason: NAUSEA/VOMITING Quetiapine Fumarate (Quetiapine 25 Mg Tablet) 50 mg GT BID [facility] Last Admin: 05/31/20 10:27 Dose: 50 mg Documented by: Sodium Chloride (0.9% Saline Lock 10 Ml Syringe) 10 - 40 ml IV UD PRN PRN Reason: SALINE FLUSH Last Admin: 05/31/20 10:27 Dose: 20 ml Documented by: Medical Necessity - Tobacco Use Smoking Status: Former smoker Route of nutrition/ use of supplements: [] Nutritional Intake: [] IV Site: [] Cuellar Catheter: [] - Assessment/Plan Antibiotics: [] Assessment/Plan: [] Active and Suspected Problems (This Medical Record has been edited. Action required.) Pneumonia due to COVID-19 virus (Acute) Respiratory insufficiency (Acute) SARS (severe acute respiratory syndrome) (Acute) covid with hypoxia - sx start 05/19. Lactate over 2. Mild rise in ALT. Pulm is seeing. D-dimer was 0.9, CT neg for PE, on lovenox 40mg bid. Cont dex, completed remdesivir. On zosyn. Fever last night, on vent, pressors. Ucx with ecoli. Will follow
[2020-05-31] MEDS: Propofol 10MG/Ml 1,000 MG/100 ML Bottle 10.3 MG CONT INF (16:41)
[2020-05-31 17:00] LABS: Bedside Glucose 294 mg/dL (70-110)
[2020-05-31] MEDS: Etomidate 20 MG/10 ML Vial IV (19:17)
--- NOTE | 2020-05-31 19:20 | CPS ---
self extubation at 190 and bag mask ventilation initiated. Pt reintubated [place] [address] Ernandez. Pt sats dropped in the 80's and FiO2 increased to 100% and PEEP increased to 12 until sats recovered.
--- NOTE | 2020-05-31 19:30 | RAD_ITS ---
ACR Level 3 findings have been noted. An addendum which confirms receipt of the report will follow. STUDY: X-RAY CHEST REASON FOR EXAM: Female, 55 years old. ETT PLACEMENT TECHNIQUE: Single AP portable view of the chest. COMPARISON: Earlier the same day. FINDINGS: Endotracheal tube at the right main bronchus. Feeding tube has been discontinued. PICC on the right extends to the right atrium. There are monitoring devices. There are bilateral interstitial and airspace opacities of the lungs with worsening. There is no demonstrated pleural abnormality. Normal size heart. Normal mediastinum and lillie. Normal visualized pulmonary arteries. Normal visualized aortic arch and descending thoracic aorta. Normal visualized thoracic spine. Normal visualized ribs, clavicles, and shoulders. There is no demonstrated abnormality of the visualized soft tissue structures of the upper abdomen. RAD/Chest 1 View (Portable) IMPRESSION: Endotracheal tube at the right main bronchus. Worsening bilateral edema or pneumonia. Electronically Signed: Johny Calderon MD at 21:23 EST , Service support ,
--- NOTE | 2020-05-31 19:30 | NURSING ---
[address] talbot at bedside at 1909 to intuabte 20 etomidate given 1916 200 succs given 1918 intuabted with 7.5 ETT 24 @ lip at 1920 bilat breath sounds positive color change
--- NOTE | 2020-05-31 20:25 | PN_ITS ---
Patient Problems: Active and Suspected Problems (This Medical Record has been edited. Action required.) Pneumonia due to COVID-19 virus (Acute) Respiratory insufficiency (Acute) SARS (severe acute respiratory syndrome) (Acute) Subjective: Intubated and sedated. She was severely agitated overnight was transition from Precedex to propofol Vitals/I&O's: Vital Signs Temp Pulse Resp BP Pulse Ox 100.8 F H 79 20 H 106/52 L 97 05/31/20 20:00 05/31/20 20:00 05/31/20 20:00 05/31/20 20:00 05/31/20 20:00 Oxygen Flow Rate (L/min) 8 Oxygen Delivery Method Mechanical Ventilator Weight: 188 lb 11.451 oz Body Mass Index (BMI) 28.7 Finger Stick Blood Glucose 377 Intake and Output for Last 24 Hours 05/29/20 05/30/20 05/31/20 23:59 23:59 23:59 Intake Total 3013.03 / 3045.13 3069.27 / 3109.07 3343.00 / 3343.00 Output Total 2430 / 2430 2725 / 2725 1415 / 1415 Balance 583.03 / 615.13 344.27 / 384.07 1928.00 / 1928.00 General: - - Intubated and sedated HEENT: Atraumatic, PERRLA, Normocephalic Oral: Moist Mucosa Neck: Supple, No JVD Lungs: No rhonchi, No wheeze, No rales, Diminished Cardiovascular: Regular rate, Regular Rhythm, Normal S1, Normal S2, No murmurs Abdomen: Soft, Non Tender, Non-Distended, No Hepato-splenomegaly Extremities: No edema, Capillary Refill Less than 3 Seconds Skin: No rashes, No breakdown Neurological: - - Intubated and sedated Psych/Mental Status: Agitated, - - Intubated and sedated Microbiology Past 72 Hours 05/28/20 21:15 Sputum, Induced/Lukens Gram Stain - Final 05/28/20 21:15 Sputum, Induced/Lukens Respiratory Culture - Final 05/29/20 11:00 Urine Catheter - Cuellar Urine Culture - Final Presumptive E. coli 05/26/20 04:05 Blood Culture (Wb) - Right Hand Blood Culture - Final No growth in 5 days. 05/26/20 03:48 Blood Culture (Wb) - Anticubital Right Blood Culture - Final No growth in 5 days. Laboratory Results 05/30/20 17:17: POC Glucose 460 H* 05/30/20 23:27: POC Glucose 347 H 05/31/20 03:55: Sodium 142, Potassium 4.0, Chloride 110 H, Carbon Dioxide 24.0, Anion Gap 8, BUN 22 H, Creatinine 0.64, Estim Creat Clear Calc 90.42, Est GFR (MDRD) Af Amer 123, Est GFR (MDRD) Non-Af 102, BUN/Creatinine Ratio 34.2 H, Glucose 352 H, Calcium 7.8 L, Total Bilirubin 0.40, AST 20, ALT 30, Alkaline Phosphatase 125 H, Total Protein 6.0 L, Albumin 2.0 L, Globulin 4.0, Albumin/Globulin Ratio 0.5 L 05/31/20 03:55: WBC 9.3, RBC 4.84, Hgb 13.8, Hct 42.5, MCV 87.8, MCH 28.5, MCHC 32.5, RDW Std Deviation 42.7, RDW Coeff of Osorio 13.3, Plt Count 364, MPV 10.0 05/31/20 03:55: Total Creatine Kinase 18 L, Triglycerides 196 05/31/20 04:59: POC Glucose 358 H 05/31/20 11:50: POC Glucose 364 H 05/31/20 16:39: POC Glucose 294 H Current Medications Acetaminophen (Acetaminophen 650 Mg/20 Ml Udc) 650 mg GT Q6H PRN PRN PRN Reason: FEVER Last Admin: 05/31/20 05:13 Dose: 650 mg Documented by: Albuterol Sulfate (Albuterol Ih 8.5 Gm (Proair) Inhaler (200 Puffs)) 2 puff INHALATION Q4H PRN PRN PRN Reason: SOB/WHEEZING Albuterol Sulfate (Albuterol 2.5 Mg/3 Ml Vial.Neb.) 2.5 mg INHALATION Q2H PRN PRN PRN Reason: dyspnea, wheezing Last Admin: 05/31/20 07:45 Dose: 2.5 mg Documented by: Calamine/Phenol (Menthol/Lanolin/Calamine/Znox 113 Gm Tube) 1 applic TOPICAL BID OLLIE; Protocol Last Admin: 12/21/20 08:29 Dose: 1 applic Documented by: Chlorhexidine Gluconate (Chlorhexidine 15 Ml) 15 ml PO BID [facility] Last Admin: 05/31/20 08:31 Dose: 15 ml Documented by: Dexamethasone Sodium Phosphate (Dexamethasone 10 Mg/Ml Vial) 6 mg IV DAILY [facility] Stop: 06/04/20 10:01 Last Admin: 05/31/20 08:28 Dose: 6 mg Documented by: Dextrose (Dextrose 50%-Water 25 Gm/50 Ml Disp.Syrin) 0 gm IV X1 PRN; Protocol PRN Reason: Hypoglycemia Enoxaparin Sodium (Enoxaparin 40 Mg/0.4 Ml Syringe) 40 mg SC BID [facility] Last Admin: 05/31/20 08:28 Dose: 40 mg Documented by: Glucagon (Glucagon 1 Mg/Ml Syringe) 1 mg IM .X1 PRN PRN Reason: Hypoglycemia Guaifenesin (Guaifenesin 1,200 Mg Tablet) 1,200 mg PO BID [facility] Last Admin: 05/31/20 08:30 Dose: Not Given Documented by: Sodium Chloride () 250 mls @ 15 mls/hr IV .[id number] PRN PRN Reason: Saline Flush Last Infusion: 05/31/20 14:00 Dose: 0 mls/hr Documented by: Sodium Chloride () 250 mls @ 15 mls/hr IV .[id number] PRN PRN Reason: Additional IVPB Infusion Famotidine 20 mg/ Sodium (Chloride) 10 mls @ 300 mls/hr IV Q12 OLLIE Last Infusion: 05/31/20 10:29 Dose: Infused Documented by: Fentanyl Citrate 1,000 mcg/ (Sodium Chloride) 100 mls @ 5 mls/hr CONT INF .Q20H [facility]; Protocol Last Titration: 05/31/20 20:00 Dose: 200 mcg/hr, 20 mls/hr Documented by: Dexmedetomidine HCl 400 mcg/ (Sodium Chloride) 100 mls @ 10.7 mls/hr CONT INF .Q9H21M [facility]; Protocol Last Admin: 05/31/20 19:58 Dose: Not Given Documented by: Norepinephrine Bitartrate 8 mg (/ Sodium Chloride) 250 mls @ 9.375 mls/hr CONT INF .[id number] [facility]; Protocol Last Titration: 05/31/20 20:00 Dose: 15 mcg/min, 28.1 mls/hr Documented by: Enteral Nutritional Formula (Vital Af 1.2 Rick Liquid) 1,000 mls @ 60 mls/hr GT .[id number] [facility] Last Admin: 05/31/20 10:28 Dose: 60 mls/hr Documented by: Piperacillin Sod/Tazobactam (Sod 3.375 gm/ Sodium Chloride) 50 mls @ 12.5 mls/hr IV Q8 [facility] Last Infusion: 05/31/20 17:51 Dose: Infused Documented by: Propofol (Diprivan) 1,000 mg in 100 mls @ 5.136 mls/hr CONT INF .Q12H [facility]; Protocol Last Titration: 05/31/20 20:00 Dose: 50 mcg/kg/min, 25.7 mls/hr Documented by: Insulin Glargine (Insulin Glargine 100 Units/Ml Pen) 50 units SC BID [facility] Last Admin: 05/31/20 08:28 Dose: 50 u Documented by: Insulin Human Lispro (Insulin Lispro 100 Unit/Ml Insuln.Pen) 0 unit SC Q6 [facility]; Protocol Last Admin: 05/31/20 16:41 Dose: 6 u Documented by: Insulin Human Lispro (Insulin Lispro 100 Unit/Ml Insuln.Pen) 10 unit SC Q6 [facility] Last Admin: 05/31/20 16:41 Dose: 10 u Documented by: Melatonin (Melatonin 3 Mg Tablet) 3 mg PO QHS PRN PRN PRN Reason: INSOMNIA Nystatin (Nystatin Powder 15gm Bottle) 1 applic TOPICAL BID [facility]; Protocol Last Admin: 05/31/20 08:29 Dose: 1 applic Documented by: Ondansetron HCl (Ondansetron 4 Mg/2 Ml Vial) 4 mg IV Q8H PRN PRN PRN Reason: NAUSEA/VOMITING Quetiapine Fumarate (Quetiapine 25 Mg Tablet) 50 mg GT BID [facility] Last Admin: 05/31/20 10:27 Dose: 50 mg Documented by: Sodium Chloride (0.9% Saline Lock 10 Ml Syringe) 10 - 40 ml IV UD PRN PRN Reason: SALINE FLUSH Last Admin: 05/31/20 19:26 Dose: 30 ml Documented by: STROKE Vital Signs/Narrative: Vital Signs Temp Pulse Resp BP Pulse Ox 05/31/20 20:00 100.8 F H 79 20 H 106/52 L 97 05/31/20 19:50 98 05/31/20 19:45 89/44 L 05/31/20 19:00 123 H 17 151/64 H 91 05/31/20 18:00 86 20 H 133/49 H 91 05/31/20 17:15 125 H 142/57 H 05/31/20 17:00 80 20 H 115/44 L 96 05/31/20 16:45 69 122/50 H 05/31/20 16:30 66 126/54 H Medical Necessity - Tobacco Use Smoking Status: Former smoker Assessment/Plan All Active Problems (This Medical Record has been edited. Action required.) Pneumonia due to COVID-19 virus (Acute) Respiratory insufficiency (Acute) SARS (severe acute respiratory syndrome) (Acute) 1. Septic shock and acute hypoxic respiratory failure secondary to COVID-19 pneumonitis/hyponatremia/transaminitis -She had to be intubated secondary to her her pneumonitis. -Continue with Decadron, she completed remdesivir -She is currently on pressor support secondary to the sepsis as well as the amount of propofol needed to keep her sedated -Sodium is stable around 140 -LFTs have normalized, potentially from the septic shock and combination of the remdesivir 2. Uncontrolled DM2/obesity -On admission her A1c was 10.8 -Continue with insulin, once she is alert and oriented and extubated can undergo education and teaching about her new diagnosis of diabetes -She will likely need to be started on Metformin, I would hold off on initiating insulin therapy if she has a new diabetic and does not take normal medications so a combination of insulin and Metformin immediately after surviving Covid may hinder compliance in the long run -We will continue to monitor glucose closely given the Decadron -BMI of 31, when she is alert and oriented discussed lifestyle medications 3. GERD -Stable -Continue with H2 june DVT: Lovenox Inpatient E&M: 34015 Subs Hosp L2
--- NOTE | 2020-05-31 20:27 | PCM.PN.BLA ---
Progress Note Notified at 19 await that the patient self extubated. On my arrival 2 minutes later she was maintaining her oxygen sats at 92% while being bagged. She was extremely agitated and therefore the decision was made to reintubate. She was given etomidate and succinylcholine and then she was intubated with a 7.5 ET tube under direct visualization. She had color change as well as bilateral breath sounds. Chest x-ray was obtained after the procedure which demonstrated good position of the ET tube in the trachea. STROKE Vital Signs/Narrative: Vital Signs Temp Pulse Resp BP Pulse Ox 05/31/20 20:00 100.8 F H 79 20 H 106/52 L 97 05/31/20 19:50 98 05/31/20 19:45 89/44 L 05/31/20 19:00 123 H 17 151/64 H 91 05/31/20 18:00 86 20 H 133/49 H 91 05/31/20 17:15 125 H 142/57 H 05/31/20 17:00 80 20 H 115/44 L 96 05/31/20 16:45 69 122/50 H 05/31/20 16:30 66 126/54 H Procedures: [id number] Insert Emergency Airway
[2020-05-31] MEDS: Propofol 10MG/Ml 1,000 MG/100 ML Bottle 25.7 MG CONT INF ×2 (20:30→23:51)
--- NOTE | 2020-05-31 20:30 | NURSING ---
OG inserted without difficulty. KUB ordered stat for placement.
--- NOTE | 2020-05-31 20:40 | RAD_ITS ---
STUDY: X-RAY - ABDOMEN/PELVIS REASON FOR EXAM: Female, 55 years old. OG PLACEMENT TECHNIQUE: Frontal view of the abdomen and lower chest COMPARISON: None. FINDINGS: Gastric tube is located with its tip in the proximal body of the stomach. There is extensive lung disease, refer to chest imaging. There is no intestinal obstruction. RAD/Abdomen Single View (Portable) IMPRESSION: Gastric tube with tip in the body. Electronically Signed: Verona Esparza, at 21:13 EST Tel , Service support ,
[2020-06-01] VITALS (47 sets, daily range): BP systolic 86–160; BP diastolic 38–64; PULSE 63–113; RESP 14–25; TEMP 37.1–38.2; O2SAT 19–95
[2020-06-01 00:26] LABS: Bedside Glucose 261 mg/dL (70-110)
[2020-06-01] MEDS: Acetaminophen 650 MG/20 ML UDC GT (02:00)
[2020-06-01] MEDS: Propofol 10MG/Ml 1,000 MG/100 ML Bottle 20.5 MG CONT INF (03:29)
[2020-06-01 04:48] LABS: Hematocrit 41.6 % (37-47); Hemoglobin 13.5 g/dL (12.0-15.0); Mean Corp Hgb Conc 32.5 g/dL (32-36); Mean Corpuscular Hgb 28.8 pg (27.0-32.0); Mean Corpuscular Volume 88.9 fL (81-99); Mean Platelet Vol. 9.9 fl (6.2-12.0); Platelet Count 366 K/mm3 (150-450); RBC Distribution Width CV 13.2 % (11.6-14.6); RBC Distribution Width SD 43.4 fl (35.1-43.9); Red Blood Count 4.68 M/mm3 (4.2-5.4); White Blood Count 12.5 K/mm3 (4.4-11.0)
[2020-06-01] MEDS: TITRATION PARAMETER CHANGE 1 EACH IV (04:51)
[2020-06-01 05:09] LABS: Anion Gap 8 (5-15); BUN 15 mg/dL (7-18); BUN/Creat Ratio 29.4 RATIO (10-20); Calcium,Total 7.6 mg/dL (8.5-10.1); Chloride 104 mmol/L (98-107); Creatinine, Serum 0.51 mg/dL (0.55-1.02); EST Glomerular Filtration Rate 133 mL/min (>60); Est Glom Filt Rate - Afr Amer 162 mL/min (>60); Estimated Creatinine Clearance 113.47 ml/min; Glucose 223 mg/dL (74-106); Potassium 3.3 mmol/L (3.5-5.1); Sodium Level 139 mmol/L (136-145)
[2020-06-01] MEDS: Insulin Lispro 100 UNIT/ML INSULN.PEN SC ×3 (05:29→17:12)
[2020-06-01] MEDS: Insulin Lispro 100 UNIT/ML INSULN.PEN 10 UNIT SC (05:30)
[2020-06-01] MEDS: 0.9% Saline Lock 10 ML Syringe IV ×2 (06:22→08:47)
[2020-06-01 06:25] LABS: Bedside Glucose 187 mg/dL (70-110)
[2020-06-01] MEDS: Propofol 10MG/Ml 1,000 MG/100 ML Bottle 23.1 MG CONT INF ×6 (07:35→23:15)
--- NOTE | 2020-06-01 07:43 | PCM.PN.INT ---
Subjective: Patient did okay overnight. Patient did self extubate and had to be reintubated secondary to hypoxia. Patient has remained on propofol for sedation. Tube feeds were held for some time, but are now reinitiated at goal. Respiratory is reporting increased secretions since the self extubation. Endotracheal tube has been withdrawn 2 cm since chest x-ray was obtained. General: - - Intubated and sedated. RASS -3. Obese. Good vent synchrony. HEENT: Atraumatic, PERRLA, EOMI, Normocephalic, - - No scleral icterus or injection noted Oral: No Gingival or Mucosal Lesions/ Ulcerations, Dry Mucosa Neck: Supple, No JVD, No Nodes, Trachea Midline Lungs: No wheeze, No rales, Diminished, Rhonchi - Right base Cardiovascular: Regular rate, Regular Rhythm, Normal S1, Normal S2, No murmurs, No rub noted, No Gallop Abdomen: Bowel Sounds Present, Soft, Non Tender, Non-Distended, Obese Extremities: No clubbing, No cyanosis, No edema, Capillary Refill Less than 3 Seconds Skin: - - No change from previous Musculoskeletal: No Tenderness to Palpation of Joints or Extremities Lymphatic: No Cervical, Supraclavicular, or Inguinal Adenopathy Neurological: Cranial nerves II-XII grossly intact, Neuro grossly intact, Motor Exam 5/5 strength throughout Psych/Mental Status: Flat Affect Vital Signs Temp Pulse Resp BP Pulse Ox 37.6 C H 81 21 H 135/48 H 91 06/01/20 06:00 06/01/20 06:00 06/01/20 06:00 06/01/20 06:00 06/01/20 06:00 Oxygen Flow Rate (L/min) 8 Oxygen Delivery Method Mechanical Ventilator Weight: 85.4 kg Body Mass Index (BMI) 28.7 Finger Stick Blood Glucose 377 Intake and Output for Last 24 Hours 05/30/20 05/31/20 06/01/20 23:59 23:59 23:59 Intake Total 3069.27 / 3109.07 3867.28 / 3907.99 1255.61 / 1255.61 Output Total 2725 / 2725 1865 / 1865 150 / 150 Balance 344.27 / 384.07 2002.28 / 2042.99 1105.61 / 1105.61 Labs (Last 48 Hours) 05/30/20 05/30/2005/30/20 10:32 17:17 23:27 WBC RBC Hgb Hct MCV MCH MCHC RDW Std Deviation RDW Coeff of Osorio Plt Count MPV Sodium Potassium Chloride Carbon Dioxide Anion Gap BUN Creatinine Estim Creat Clear Calc Est GFR (MDRD) Af Amer Est GFR (MDRD) Non-Af BUN/Creatinine Ratio Glucose Calcium Total Bilirubin AST ALT Alkaline Phosphatase Total Creatine Kinase Total Protein Albumin Globulin Albumin/Globulin Ratio Triglycerides POC Glucose 378 H 460 H* 347 H 05/31/20 05/31/20 05/31/20 03:55 03:55 03:55 WBC 9.3 RBC 4.84 Hgb 13.8 Hct 42.5 MCV 87.8 MCH 28.5 MCHC 32.5 RDW Std Deviation 42.7 RDW Coeff of Osorio 13.3 Plt Count 364 MPV 10.0 Sodium 142 Potassium 4.0 Chloride 110 H Carbon Dioxide 24.0 Anion Gap 8 BUN 22 H Creatinine 0.64 Estim Creat Clear Calc 90.42 Est GFR (MDRD) Af Amer 123 Est GFR (MDRD) Non-Af 102 BUN/Creatinine Ratio 34.2 H Glucose 352 H Calcium 7.8 L Total Bilirubin 0.40 AST 20 ALT 30 Alkaline Phosphatase 125 H Total Creatine Kinase 18 L Total Protein 6.0 L Albumin 2.0 L Globulin 4.0 Albumin/Globulin Ratio 0.5 L Triglycerides 196 POC Glucose 05/31/20 05/31/20 05/31/20 04:59 11:50 16:39 WBC RBC Hgb Hct MCV MCH MCHC RDW Std Deviation RDW Coeff of Osorio Plt Count MPV Sodium Potassium Chloride Carbon Dioxide Anion Gap BUN Creatinine Estim Creat Clear Calc Est GFR (MDRD) Af Amer Est GFR (MDRD) Non-Af BUN/Creatinine Ratio Glucose Calcium Total Bilirubin AST ALT Alkaline Phosphatase Total Creatine Kinase Total Protein Albumin Globulin Albumin/Globulin Ratio Triglycerides POC Glucose 358 H 364 H 294 H 05/31/20 06/01/20 06/01/20 23:43 04:40 04:40 WBC 12.5 H RBC 4.68 Hgb 13.5 Hct 41.6 MCV 88.9 MCH 28.8 MCHC 32.5 RDW Std Deviation 43.4 RDW Coeff of Osorio 13.2 Plt Count 366 MPV 9.9 Sodium 139 Potassium 3.3 L Chloride 104 Carbon Dioxide 27.0 Anion Gap 8 BUN 15 Creatinine 0.51 L Estim Creat Clear Calc 113.47 Est GFR (MDRD) Af Amer 162 Est GFR (MDRD) Non-Af 133 BUN/Creatinine Ratio 29.4 H Glucose 223 H Calcium 7.6 L Total Bilirubin AST ALT Alkaline Phosphatase Total Creatine Kinase Total Protein Albumin Globulin Albumin/Globulin Ratio Triglycerides POC Glucose 261 H 06/01/20 05:28 WBC RBC Hgb Hct MCV MCH MCHC RDW Std Deviation RDW Coeff of Osorio Plt Count MPV Sodium Potassium Chloride Carbon Dioxide Anion Gap BUN Creatinine Estim Creat Clear Calc Est GFR (MDRD) Af Amer Est GFR (MDRD) Non-Af BUN/Creatinine Ratio Glucose Calcium Total Bilirubin AST ALT Alkaline Phosphatase Total Creatine Kinase Total Protein Albumin Globulin Albumin/Globulin Ratio Triglycerides POC Glucose 187 H Microbiology 05/28/20 21:15 Sputum, Induced/Lukens Gram Stain - Final 05/28/20 21:15 Sputum, Induced/Lukens Respiratory Culture - Final 05/29/20 11:00 Urine Catheter - Cuellar Urine Culture - Final Presumptive E. coli 05/26/20 04:05 Blood Culture (Wb) - Right Hand Blood Culture - Final No growth in 5 days. 05/26/20 03:48 Blood Culture (Wb) - Anticubital Right Blood Culture - Final No growth in 5 days. Clinical Impression(s) from Imaging Studies Chest X-Ray 05/31/20 08:37 IMPRESSION: All the support tubes are in good position. Residual bilateral pulmonary infiltrates although there has been a mild degree of improvement as compared to prior study. Electronically Signed: Mauricio Sifuentes at 9:14 EST , Service support , Chest X-Ray 05/31/20 19:30 IMPRESSION: Endotracheal tube at the right main bronchus. Worsening bilateral edema or pneumonia. Electronically Signed: Johny Calderon MD at 21:23 EST , Service support , ADDENDUM: 05/31/208 IMPRESSION: Endotracheal tube at the right main bronchus. Worsening bilateral edema or pneumonia. N.B. : Tina Hicks, RN , RN, confirmed on 05/31/2020 21:31:35 (ET) that the healthcare facility has received the radiology report. Electronically Signed: Johny Calderon MD at 21:23 EST , Service support , KUB X-Ray 05/31/20 20:40 IMPRESSION: Gastric tube with tip in the body. Electronically Signed: Verona Esparza, at 21:13 EST Tel , Service support , Medical Necessity - Tobacco Use Smoking Status: Former smoker Assessment/Plan All Active Problems (This Medical Record has been edited. Action required.) Pneumonia due to COVID-19 virus (Acute) Respiratory insufficiency (Acute) SARS (severe acute respiratory syndrome) (Acute) RECOMMENDATIONS: 1. Continue to wean FiO2 and PEEP to maintain oxygen saturations at or above 90%. 2. Wean Levophed to maintain a mean arterial pressure at or above 65 mmHg. 3. Continue Decadron per infectious disease. Remdesivir completed 4. Continue empiric antibiotics 5. Increase Lantus and continue sliding scale insulin coverage. 6. Continue tube feeds as tolerated. 7. Potassium repletion as indicated IMPRESSIONS: 1. Acute hypoxemic respiratory failure secondary to COVID-19 pneumonia The patient continued to decompensate from a respiratory perspective following admission, eventually requiring ICU transfer and subsequent intubation on May 28. She will be continued on remdesivir and Decadron as ordered. Course complicated by self extubation overnight. Patient does have increased infiltrates on post intubation x-ray. Unclear if this is secondary to deep location of endotracheal tube, decreased pulmonary recruitment or potentially aspiration as tube feeds were running during self extubation. Patient is on Zosyn. Potentially repeat chest x-ray in 24 to 48 hours if not improving. 2. Septic shock The patient developed hemodynamic compromise as a consequence of sedative medication use and E. coli UTI. Patient currently on appropriate antibiotics. She was subsequently placed on Levophed, which will be titrated to maintain a mean arterial pressure at or above 65 mmHg. Likely initiate diuresis once pressor requirements improve. 3. Acute kidney injury Resolved. Likely prerenal in etiology with component of ischemic ATN in the setting of #2. Continue current supportive measures including vasopressor support to maintain hemodynamic stability. Continue to monitor urine output. No current indication for renal replacement therapy. 4. Poorly controlled diabetes mellitus Continue Lantus and sliding scale insulin coverage. Titrate Lantus as necessary to keep blood sugars within acceptable range. No decrease in Lantus as patient did have tube feeds held overnight and this is likely the etiology of decreased blood sugars this morning. 5. Transaminitis Resolved. Potentially related to acute infection versus fatty liver disease. Continue to monitor closely in light of remdesivir utilization. 6. Obesity/GERD Complicates care, management, recovery and prognosis. Physical therapy to work with the patient once respiratory status has improved. TIME: 35 minutes of critical care time, independent of procedures, was spent addressing the patient's acute hypoxemic respiratory failure, COVID-19 pneumonia, distributive shock, acute kidney injury, diabetes mellitus, review of all data and collaboration with the care team. (5:30 AM to 6:30 AM) 9xxxx: [id number] Critical care first hour
[2020-06-01] MEDS: Enoxaparin 40 MG/0.4 ML Syringe SC ×2 (08:35→20:30)
[2020-06-01] MEDS: Chlorhexidine 15 ML PO ×2 (08:36→19:50)
[2020-06-01] MEDS: Famotidine 200 MG/20 ML MDV 20 MG in 0.9% Normal Saline (Pres. free 8 ML 10 MG IV (08:37)
[2020-06-01] MEDS: guaiFENesin 10 ML UDC (200MG/10ML) GT ×4 (08:38→19:43)
[2020-06-01] MEDS: QUEtiapine 25 MG Tablet 50 MG GT ×2 (08:38→19:43)
[2020-06-01] MEDS: Nystatin Powder 15gm Bottle 1 APPLIC TOPICAL ×2 (08:43→19:44)
[2020-06-01] MEDS: Menthol/Lanolin/Calamine/Znox 113 GM Tube 1 APPLIC TOPICAL ×2 (08:44→19:44)
[2020-06-01] MEDS: dexAMETHasone 10 MG/ML Vial 6 MG IV (08:46)
--- NOTE | 2020-06-01 09:50 | PN_ITS ---
Patient Problems: Active and Suspected Problems (This Medical Record has been edited. Action required.) Pneumonia due to COVID-19 virus (Acute) Respiratory insufficiency (Acute) SARS (severe acute respiratory syndrome) (Acute) Subjective: Intubated and sedated. No issues overnight. She had to be reintubated last evening by myself after she self extubated. Vitals/I&O's: Vital Signs Temp Pulse Resp BP Pulse Ox 99.7 F H 95 19 H 135/48 H 93 06/01/20 06:00 06/01/20 08:00 06/01/20 07:00 06/01/20 06:00 06/01/20 07:00 Oxygen Flow Rate (L/min) 8 Oxygen Delivery Method Mechanical Ventilator Weight: 188 lb 4.396 oz Body Mass Index (BMI) 28.7 Finger Stick Blood Glucose 377 Intake and Output for Last 24 Hours 05/30/20 05/31/20 06/01/20 23:59 23:59 23:59 Intake Total 3069.27 / 3109.07 3867.28 / 3907.99 1255.61 / 1255.61 Output Total 2725 / 2725 1865 / 1865 150 / 150 Balance 344.27 / 384.07 2001. / 2042.99 1105.61 / 1105.61 General: - - Intubated and sedated HEENT: Atraumatic, PERRLA, Normocephalic Oral: Dry mucosa Neck: Supple, No JVD Lungs: Mild rhonchi bilaterally, No wheeze, No rales, Diminished Cardiovascular: Regular rate, Regular Rhythm, Normal S1, Normal S2, No murmurs Abdomen: Soft, Non Tender, Non-Distended, No Hepato-splenomegaly Extremities: No edema, Capillary Refill Less than 3 Seconds Skin: No rashes, No breakdown Neurological: - - Intubated and sedated Psych/Mental Status: Agitated, - - Intubated and sedated Microbiology Past 72 Hours 06/01/20 06:40 Sputum, Induced/Lukens Gram Stain - Final 05/28/20 21:15 Sputum, Induced/Lukens Gram Stain - Final 05/28/20 21:15 Sputum, Induced/Lukens Respiratory Culture - Final 05/29/20 11:00 Urine Catheter - Cuellar Urine Culture - Final Presumptive E. coli 05/26/20 04:05 Blood Culture (Wb) - Right Hand Blood Culture - Final No growth in 5 days. 05/26/20 03:48 Blood Culture (Wb) - Anticubital Right Blood Culture - Final No growth in 5 days. Laboratory Results 05/31/20 11:50: POC Glucose 364 H 05/31/20 16:39: POC Glucose 294 H 05/31/20 23:43: POC Glucose 261 H 06/01/20 04:40: WBC 12.5 H, RBC 4.68, Hgb 13.5, Hct 41.6, MCV 88.9, MCH 28.8, MCHC 32.5, RDW Std Deviation 43.4, RDW Coeff of Osorio 13.2, Plt Count 366, MPV 9.9 06/01/20 04:40: Sodium 139, Potassium 3.3 L, Chloride 104, Carbon Dioxide 27.0, Anion Gap 8, BUN 15, Creatinine 0.51 L, Estim Creat Clear Calc 113.47, Est GFR (MDRD) Af Amer 162, Est GFR (MDRD) Non-Af 133, BUN/Creatinine Ratio 29.4 H, Glucose 223 H, Calcium 7.6 L 06/01/20 05:28: POC Glucose 187 H Current Medications Acetaminophen (Acetaminophen 650 Mg/20 Ml Udc) 650 mg GT Q6H PRN PRN PRN Reason: FEVER Last Admin: 06/01/20 02:00 Dose: 650 mg Documented by: Albuterol Sulfate (Albuterol Ih 8.5 Gm (Proair) Inhaler (200 Puffs)) 2 puff INHALATION Q4H PRN PRN PRN Reason: SOB/WHEEZING Albuterol Sulfate (Albuterol 2.5 Mg/3 Ml Vial.Neb.) 2.5 mg INHALATION Q2H PRN PRN PRN Reason: dyspnea, wheezing Last Admin: 05/31/20 07:45 Dose: 2.5 mg Documented by: Calamine/Phenol (Menthol/Lanolin/Calamine/Znox 113 Gm Tube) 1 applic TOPICAL BID OLLIE; Protocol Last Admin: 06/01/20 08:44 Dose: 1 applic Documented by: Chlorhexidine Gluconate (Chlorhexidine 15 Ml) 15 ml PO BID OLLIE Last Admin: 06/01/20 08:36 Dose: 15 ml Documented by: Dexamethasone Sodium Phosphate (Dexamethasone 10 Mg/Ml Vial) 6 mg IV DAILY [facility] Stop: 06/04/20 10:01 Last Admin: 06/01/20 08:46 Dose: 6 mg Documented by: Dextrose (Dextrose 50%-Water 25 Gm/50 Ml Disp.Syrin) 0 gm IV X1 PRN; Protocol PRN Reason: Hypoglycemia Enoxaparin Sodium (Enoxaparin 40 Mg/0.4 Ml Syringe) 40 mg SC BID [facility] Last Admin: 06/01/20 08:35 Dose: 40 mg Documented by: Glucagon (Glucagon 1 Mg/Ml Syringe) 1 mg IM .X1 PRN PRN Reason: Hypoglycemia Guaifenesin (Guaifenesin 10 Ml Udc (200mg/10ml)) 10 ml GT Q4H [facility] Last Admin: 06/01/20 08:38 Dose: 10 ml Documented by: Sodium Chloride () 250 mls @ 15 mls/hr IV .[id number] PRN PRN Reason: Saline Flush Last Infusion: 06/01/20 05:30 Dose: 0 mls/hr Documented by: Sodium Chloride () 250 mls @ 15 mls/hr IV .[id number] PRN PRN Reason: Additional IVPB Infusion Famotidine 20 mg/ Sodium (Chloride) 10 mls @ 300 mls/hr IV Q12 [facility] Last Admin: 06/01/20 08:37 Dose: 10 mls/hr Documented by: Fentanyl Citrate 1,000 mcg/ (Sodium Chloride) 100 mls @ 5 mls/hr CONT INF .Q20H [facility]; Protocol Last Admin: 06/01/20 06:01 Dose: 175 mcg/hr, 17.5 mls/hr Documented by: Norepinephrine Bitartrate 8 mg (/ Sodium Chloride) 250 mls @ 9.375 mls/hr CONT INF .[id number] [facility]; Protocol Last Titration: 06/01/20 06:00 Dose: 15 mcg/min, 28.1 mls/hr Documented by: Enteral Nutritional Formula (Vital Af 1.2 Rick Liquid) 1,000 mls @ 60 mls/hr GT .[id number] [facility] Last Admin: 05/31/20 22:42 Dose: 60 mls/hr Documented by: Piperacillin Sod/Tazobactam (Sod 3.375 gm/ Sodium Chloride) 50 mls @ 12.5 mls/hr IV Q8 [facility] Last Admin: 06/01/20 05:30 Dose: 12.5 mls/hr Documented by: Propofol (Diprivan) 1,000 mg in 100 mls @ 5.136 mls/hr CONT INF .Q12H [facility]; Protocol Last Admin: 06/01/20 07:35 Dose: 45 mcg/kg/min, 23.1 mls/hr Documented by: Insulin Glargine (Insulin Glargine 100 Units/Ml Pen) 50 units SC BID [facility] Last Admin: 06/01/20 08:42 Dose: 50 u Documented by: Insulin Human Lispro (Insulin Lispro 100 Unit/Ml Insuln.Pen) 0 unit SC Q6 [facility]; Protocol Last Admin: 06/01/20 05:29 Dose: 2 u Documented by: Melatonin (Melatonin 3 Mg Tablet) 3 mg PO QHS PRN PRN PRN Reason: INSOMNIA Nystatin (Nystatin Powder 15gm Bottle) 1 applic TOPICAL BID [facility]; Protocol Last Admin: 06/01/20 08:43 Dose: 1 applic Documented by: Ondansetron HCl (Ondansetron 4 Mg/2 Ml Vial) 4 mg IV Q8H PRN PRN PRN Reason: NAUSEA/VOMITING Quetiapine Fumarate (Quetiapine 25 Mg Tablet) 50 mg GT BID [facility] Last Admin: 06/01/20 08:38 Dose: 50 mg Documented by: Sodium Chloride (0.9% Saline Lock 10 Ml Syringe) 10 - 40 ml IV UD PRN PRN Reason: SALINE FLUSH Last Admin: 06/01/20 08:47 Dose: 10 ml Documented by: STROKE Vital Signs/Narrative: Vital Signs Temp Pulse Resp BP Pulse Ox 06/01/20 08:00 95 06/01/20 07:00 107 H 19 H 93 06/01/20 06:00 99.7 F H 81 21 H 135/48 H 91 Medical Necessity - Tobacco Use Smoking Status: Former smoker Assessment/Plan All Active Problems (This Medical Record has been edited. Action required.) Pneumonia due to COVID-19 virus (Acute) Respiratory insufficiency (Acute) SARS (severe acute respiratory syndrome) (Acute) 1. Septic shock and acute hypoxic respiratory failure secondary to COVID-19 pn eumonitis/hyponatremia/transaminitis -She had to be intubated secondary to her her pneumonitis. -Continue with Decadron, she completed remdesivir -She is currently on pressor support secondary to the sepsis as well as the amount of propofol needed to keep her sedated -Sodium is stable around 140 -LFTs have normalized, potentially from the septic shock and combination of the remdesivir -Continue with Zosyn for the possible aspiration she did have tube feeds running at the time of her self extubation. We will monitor her chest x-ray symptoms do not improve 2. Uncontrolled DM2/obesity -On admission her A1c was 10.8 -Continue with insulin, once she is alert and oriented and extubated can undergo education and teaching about her new diagnosis of diabetes -She will likely need to be started on Metformin, I would hold off on initiating insulin therapy if she has a new diabetic and does not take normal medications so a combination of insulin and Metformin immediately after surviving Covid may hinder compliance in the long run -We will continue to monitor glucose closely given the Decadron -BMI of 31, when she is alert and oriented discussed lifestyle medications 3. GERD -Stable -Continue with H2 june DVT: Lovenox Inpatient E&M: 09702 Subs Hosp L2
--- NOTE | 2020-06-01 10:44 | CASEMGMT ---
SW called to offer support, he states he is doing fine. He states the children are there with him and that helps. SW let him know if he needs anything, any support, can call to ICU and they can find the SW. thanked SW for call. JONATAN Gee
[2020-06-01 11:06] LABS: Bedside Glucose 227 mg/dL (70-110)
--- NOTE | 2020-06-01 14:07 | CASEMGMT ---
called in to ICU inquiring about getting FMLA papers completed for pt. SW texted physician to inquire if he would be willing to assist in completing the papers. SW called the back. SW explained normally it would be the PCP to complete FMLA papers, but will see if physician here is able to sign. He is going to fax the papers to this SW. SW explained will let him know if we are able to complete these or not here. JONATAN Gee
[2020-06-01] MEDS: Vital AF 1.2 Cal Liquid 1,000 ML 60 ML GT (17:12)
[2020-06-01 17:20] LABS: Bedside Glucose 324 mg/dL (70-110)
[2020-06-01] MEDS: Famotidine 200 MG/20 ML MDV 20 MG in 0.9% Normal Saline (Pres. free 8 ML 300 MG IV (19:43)
[2020-06-02] VITALS (42 sets, daily range): BP systolic 93–137; BP diastolic 41–60; PULSE 61–101; RESP 14–32; TEMP 37.1–38.7; O2SAT 89–95
[2020-06-02] MEDS: Insulin Lispro 100 UNIT/ML INSULN.PEN SC ×4 (00:01→17:16)
[2020-06-02 00:26] LABS: Bedside Glucose 286 mg/dL (70-110)
[2020-06-02] MEDS: guaiFENesin 10 ML UDC (200MG/10ML) GT ×6 (01:45→21:02)
[2020-06-02] MEDS: Propofol 10MG/Ml 1,000 MG/100 ML Bottle 23.1 MG CONT INF ×5 (03:35→22:30)
[2020-06-02 06:46] LABS: Absolute Lymphocyte Count 1.89 X10^3/uL (0.83-4.51); Absolute Neutrophil Count 10.2 X10^3/uL (2.0-7.7); Basophil# 0.02 X10^3/uL; Basophil% 0.1 % (0-1); Eosinophil# 0.04 X10^3/uL; Eosinophils% 0.3 % (0-5); Hematocrit 42.2 % (37-47); Lymphocyte # 1.89 X10^3/ul (4.0); Mean Corp Hgb Conc 30.8 g/dL (32-36); Mean Corpuscular Hgb 27.7 pg (27.0-32.0); Mean Platelet Vol. 10.3 fl (6.2-12.0); Monocyte# 0.96 X10^3/uL; Monocyte% 7.1 % (0-10); NRBC Flagged by Analyzer 0 % (0-5); Neutrophil # 10.24 X10^3/uL (2.7-7.7); Neutrophil % 75.6 % (47-70); Platelet Count 313 K/mm3 (150-450); RBC Distribution Width CV 13.3 % (11.6-14.6); RBC Distribution Width SD 44.2 fl (35.1-43.9); Red Blood Count 4.69 M/mm3 (4.2-5.4); White Blood Count 13.5 K/mm3 (4.4-11.0)
[2020-06-02 07:03] LABS: ALB/GLOB Ratio 0.5 RATIO (0.9-2.4); AST(SGOT) 21 U/L (15-37); Alanine Aminotransfer ALT/SGPT 28 U/L (13-56); Alkaline Phosphatase 122 U/L (45-117); Anion Gap 5 (5-15); BUN 14 mg/dL (7-18); BUN/Creat Ratio 25.5 RATIO (10-20); Calcium,Total 8.1 mg/dL (8.5-10.1); Chloride 107 mmol/L (98-107); Creatinine, Serum 0.55 mg/dL (0.55-1.02); EST Glomerular Filtration Rate 123 mL/min (>60); Est Glom Filt Rate - Afr Amer 149 mL/min (>60); Estimated Creatinine Clearance 105.22 ml/min; Globulin 4.2 g/dL (2.2-4.2); Glucose 290 mg/dL (74-106); Potassium 3.8 mmol/L (3.5-5.1); Protein, Total 6.2 g/dL (6.4-8.2); Sodium Level 142 mmol/L (136-145)
[2020-06-02] MEDS: Enoxaparin 40 MG/0.4 ML Syringe SC ×2 (08:06→21:01)
[2020-06-02] MEDS: dexAMETHasone 10 MG/ML Vial 6 MG IV (08:07)
[2020-06-02] MEDS: QUEtiapine 25 MG Tablet 50 MG GT ×2 (08:07→21:02)
[2020-06-02] MEDS: Menthol/Lanolin/Calamine/Znox 113 GM Tube 1 APPLIC TOPICAL ×2 (08:08→20:58)
[2020-06-02] MEDS: Nystatin Powder 15gm Bottle 1 APPLIC TOPICAL ×2 (08:08→20:58)
[2020-06-02] MEDS: Chlorhexidine 15 ML PO ×2 (08:12→20:59)
[2020-06-02] MEDS: Famotidine 200 MG/20 ML MDV 20 MG in 0.9% Normal Saline (Pres. free 8 ML 300 MG IV ×2 (08:13→21:02)
--- NOTE | 2020-06-02 08:14 | PN_ITS ---
Subjective: Patient did okay overnight. Patient remains on Levophed to maintain appropriate saturations. Patient with good vent synchrony. Patient has had some increased residuals overnight noted. General: - - Intubated and sedated. Good vent synchrony. HEENT: Atraumatic, PERRLA, EOMI, Normocephalic, - - No scleral icterus or injection noted Oral: Moist Mucosa, No Gingival or Mucosal Lesions/ Ulcerations Neck: Supple, No JVD, No Nodes, Trachea Midline Lungs: No rhonchi, No wheeze, No rales, Diminished, - - Symmetric expansion. No dullness to percussion. Cardiovascular: Regular rate, Regular Rhythm, Normal S1, Normal S2, No murmurs, No rub noted, No Gallop Abdomen: Bowel Sounds Present, Soft, Non Tender, Non-Distended Extremities: No clubbing, No cyanosis, Edema Skin: No rashes, No breakdown Musculoskeletal: No Tenderness to Palpation of Joints or Extremities Lymphatic: No Cervical, Supraclavicular, or Inguinal Adenopathy Neurological: Cranial nerves II-XII grossly intact, Neuro grossly intact, Motor Exam 5/5 strength throughout Psych/Mental Status: Flat Affect Vital Signs Temp Pulse Resp BP Pulse Ox 38.0 C H 84 20 H 110/42 L 93 06/02/20 07:00 06/02/20 07:29 06/02/20 07:00 06/02/20 07:00 06/02/20 07:00 Oxygen Flow Rate (L/min) 8 Oxygen Delivery Method Mechanical Ventilator Weight: 86.3 kg Body Mass Index (BMI) 28.7 Finger Stick Blood Glucose 377 Intake and Output for Last 24 Hours 05/31/20 06/01/20 06/02/20 23:59 23:59 23:59 Intake Total 3867.28 / 3907.99 3216.99 / 3690.37 1417.46 / 1417.46 Output Total 1865 / 1865 1200 / 1450 570 / 570 Balance / 2041.2015. / 2240.37 847.46 / 847.46 Labs (Last 48 Hours) 05/31/20 05/31/20 05/31/20 11:50 16:39 23:43 WBC RBC Hgb Hct MCV MCH MCHC RDW Std Deviation RDW Coeff of Osorio Plt Count MPV Immature Gran % (Auto) Neut % (Auto) Lymph % (Auto) [place] % (Auto) Eos % (Auto) Baso % (Auto) Absolute Neuts (auto) Absolute Lymphs (auto) Nucleated RBC % Sodium Potassium Chloride Carbon Dioxide Anion Gap BUN Creatinine Estim Creat Clear Calc Est GFR (MDRD) Af Amer Est GFR (MDRD) Non-Af BUN/Creatinine Ratio Glucose Calcium Total Bilirubin AST ALT Alkaline Phosphatase Total Protein Albumin Globulin Albumin/Globulin Ratio POC Glucose 364 H 294 H 261 H 06/01/20 06/01/20 06/01/20 04:40 04:40 05:28 WBC 12.5 H RBC 4.68 Hgb 13.5 Hct 41.6 MCV 88.9 MCH 28.8 MCHC 32.5 RDW Std Deviation 43.4 RDW Coeff of Osorio 13.2 Plt Count 366 MPV 9.9 Immature Gran % (Auto) Neut % (Auto) Lymph % (Auto) [place] % (Auto) Eos % (Auto) Baso % (Auto) Absolute Neuts (auto) Absolute Lymphs (auto) Nucleated RBC % Sodium 139 Potassium 3.3 L Chloride 104 Carbon Dioxide 27.0 Anion Gap 8 BUN 15 Creatinine 0.51 L Estim Creat Clear Calc 113.47 Est GFR (MDRD) Af Amer 162 Est GFR (MDRD) Non-Af 133 BUN/Creatinine Ratio 29.4 H Glucose 223 H Calcium 7.6 L Total Bilirubin AST ALT Alkaline Phosphatase Total Protein Albumin Globulin Albumin/Globulin Ratio POC Glucose 187 H 06/01/20 06/01/20 06/02/20 10:49 17:09 00:00 WBC RBC Hgb Hct MCV MCH MCHC RDW Std Deviation RDW Coeff of Osorio Plt Count MPV Immature Gran % (Auto) Neut % (Auto) Lymph % (Auto) [place] % (Auto) Eos % (Auto) Baso % (Auto) Absolute Neuts (auto) Absolute Lymphs (auto) Nucleated RBC % Sodium Potassium Chloride Carbon Dioxide Anion Gap BUN Creatinine Estim Creat Clear Calc Est GFR (MDRD) Af Amer Est GFR (MDRD) Non-Af BUN/Creatinine Ratio Glucose Calcium Total Bilirubin AST ALT Alkaline Phosphatase Total Protein Albumin Globulin Albumin/Globulin Ratio POC Glucose 227 H 324 H 286 H 06/02/20 06/02/20 04:40 04:40 WBC 13.5 H RBC 4.69 Hgb 13.0 Hct 42.2 MCV 90.0 MCH 27.7 MCHC 30.8 L D RDW Std Deviation 44.2 H RDW Coeff of Osorio 13.3 Plt Count 313 MPV 10.3 Immature Gran % (Auto) 2.900 H Neut % (Auto) 75.6 H Lymph % (Auto) 14.0 L [place] % (Auto) 7.1 Eos % (Auto) 0.3 Baso % (Auto) 0.1 Absolute Neuts (auto) 10.2 H Absolute Lymphs (auto) 1.89 Nucleated RBC % 0 Sodium 142 Potassium 3.8 Chloride 107 Carbon Dioxide 30.0 Anion Gap 5 BUN 14 Creatinine 0.55 Estim Creat Clear Calc 105.22 Est GFR (MDRD) Af Amer 149 Est GFR (MDRD) Non-Af 123 BUN/Creatinine Ratio 25.5 H Glucose 290 H Calcium 8.1 L Total Bilirubin 0.70 AST 21 ALT 28 Alkaline Phosphatase 122 H Total Protein 6.2 L Albumin 2.0 L Globulin 4.2 Albumin/Globulin Ratio 0.5 L POC Glucose Microbiology 06/01/20 06:40 Sputum, Induced/Lukens Gram Stain - Final 05/28/20 21:15 Sputum, Induced/Lukens Gram Stain - Final 05/28/20 21:15 Sputum, Induced/Lukens Respiratory Culture - Final 05/29/20 11:00 Urine Catheter - Cuellar Urine Culture - Final Presumptive E. coli 05/26/20 04:05 Blood Culture (Wb) - Right Hand Blood Culture - Final No growth in 5 days. 05/26/20 03:48 Blood Culture (Wb) - Anticubital Right Blood Culture - Final No growth in 5 days. Medical Necessity - Tobacco Use Smoking Status: Former smoker Assessment/Plan All Active Problems (This Medical Record has been edited. Action required.) Pneumonia due to COVID-19 virus (Acute) Respiratory insufficiency (Acute) SARS (severe acute respiratory syndrome) (Acute) RECOMMENDATIONS: 1. Continue to wean FiO2 and PEEP to maintain oxygen saturations at or above 90%. 2. Wean Levophed to maintain a mean arterial pressure at or above 65 mmHg. 3. Continue Decadron per infectious disease. Remdesivir completed 4. Continue empiric antibiotics 5. Increase Lantus and continue sliding scale insulin coverage. 6. Continue tube feeds as tolerated. 7. Diuretic challenge IMPRESSIONS: 1. Acute hypoxemic respiratory failure secondary to COVID-19 pneumonia The patient continued to decompensate from a respiratory perspective following admission, eventually requiring ICU transfer and subsequent intubation on May 28. She will be continued on remdesivir and Decadron as ordered. Course complicated by self extubation overnight. Patient does have increased infiltrates on post intubation x-ray. Unclear if this is secondary to deep location of endotracheal tube, decreased pulmonary recruitment or potentially aspiration as tube feeds were running during self extubation. Patient is on Zosyn. Hold on repeat chest x-ray for now. Oxygen status appears to have stabilized. 2. Septic shock The patient developed hemodynamic compromise as a consequence of sedative medication use and E. coli UTI. Patient currently on appropriate antibiotics. She was subsequently placed on Levophed, which will be titrated to maintain a mean arterial pressure at or above 65 mmHg. Will attempt slow diuresis despite pressors as patient's weight continues to increase. 3. Acute kidney injury Resolved. Likely prerenal in etiology with component of ischemic ATN in the setting of #2. Continue current supportive measures including vasopressor support to maintain hemodynamic stability. Continue to monitor urine output. No current indication for renal replacement therapy. 4. Poorly controlled diabetes mellitus Continue Lantus and sliding scale insulin coverage. Titrate Lantus as necessary to keep blood sugars within acceptable range. No decrease in Lantus as patient did have tube feeds held overnight and this is likely the etiology of decreased blood sugars this morning. 5. Transaminitis Resolved. Potentially related to acute infection versus fatty liver disease. Continue to monitor closely in light of remdesivir utilization. 6. Obesity/GERD Complicates care, management, recovery and prognosis. Physical therapy to work with the patient once respiratory status has improved. TIME: 40 minutes of critical care time, independent of procedures, was spent addressing the patient's acute hypoxemic respiratory failure, COVID-19 pneumonia, distributive shock, acute kidney injury, diabetes mellitus, review of all data and collaboration with the care team. (5:15 AM to 6:15 AM) [id number]: [id number] Critical care first hour
[2020-06-02] MEDS: Vital AF 1.2 Cal Liquid 1,000 ML 60 ML GT (09:01)
[2020-06-02] MEDS: Furosemide 20 MG/2 ML VIAL IV ×2 (09:01→17:20)
--- NOTE | 2020-06-02 09:22 | PCM.PN.HOSP ---
Patient Problems: Active and Suspected Problems (This Medical Record has been edited. Action required.) Pneumonia due to COVID-19 virus (Acute) Respiratory insufficiency (Acute) SARS (severe acute respiratory syndrome) (Acute) Subjective: Issues overnight. She still remains on pressors and is intubated and sedated Vitals/I&O's: Vital Signs Temp Pulse Resp BP Pulse Ox 100.9 F H 96 25 H 114/41 L 90 06/02/20 08:30 06/02/20 08:30 06/02/20 08:30 06/02/20 08:30 06/02/20 08:30 Oxygen Flow Rate (L/min) 8 Oxygen Delivery Method Mechanical Ventilator Weight: 190 lb 4.143 oz Body Mass Index (BMI) 28.7 Finger Stick Blood Glucose 377 Intake and Output for Last 24 Hours 05/31/20 06/01/20 06/02/20 23:59 23:59 23:59 Intake Total 3867.28 / 3907.99 3216.99 / 3690.37 1480.97 / 1480.97 Output Total 1865 / 1865 1200 / 1450 570 / 570 Balance / 2041.2015. / 2239.37 910.97 / 910.97 General: - - Intubated and sedated HEENT: Atraumatic, PERRLA, Normocephalic Oral: Dry mucosa Neck: Supple, No JVD Lungs: Mild rhonchi bilaterally, No wheeze, No rales, Diminished Cardiovascular: Regular rate, Regular Rhythm, Normal S1, Normal S2, No murmurs Abdomen: Soft, Non Tender, Non-Distended, No Hepato-splenomegaly Extremities: No edema, Capillary Refill Less than 3 Seconds Skin: No rashes, No breakdown Neurological: - - Intubated and sedated Psych/Mental Status:- - Intubated and sedated Microbiology Past 72 Hours 06/01/20 06:40 Sputum, Induced/Lukens Gram Stain - Final 05/28/20 21:15 Sputum, Induced/Lukens Gram Stain - Final 05/28/20 21:15 Sputum, Induced/Lukens Respiratory Culture - Final 05/29/20 11:00 Urine Catheter - Cuellar Urine Culture - Final Presumptive E. coli 05/26/20 04:05 Blood Culture (Wb) - Right Hand Blood Culture - Final No growth in 5 days. 05/26/20 03:48 Blood Culture (Wb) - Anticubital Right Blood Culture - Final No growth in 5 days. Laboratory Results 06/01/20 10:49: POC Glucose 227 H 06/01/20 17:09: POC Glucose 324 H 06/02/20 00:00: POC Glucose 286 H 06/02/20 04:40: WBC 13.5 H, RBC 4.69, Hgb 13.0, Hct 42.2, MCV 90.0, MCH 27.7, MCHC 30.8 L D, RDW Std Deviation 44.2 H, RDW Coeff of Osorio 13.3, Plt Count 313, MPV 10.3, Immature Gran % (Auto) 2.900 H, Neut % (Auto) 75.6 H, Lymph % (Auto) 14.0 L, [place] % (Auto) 7.1, Eos % (Auto) 0.3, Baso % (Auto) 0.1, Absolute Neuts (auto) 10.2 H, Absolute Lymphs (auto) 1.89, Nucleated RBC % 0 06/02/20 04:40: Sodium 142, Potassium 3.8, Chloride 107, Carbon Dioxide 30.0, Anion Gap 5, BUN 14, Creatinine 0.55, Estim Creat Clear Calc 105.22, Est GFR (MDRD) Af Amer 149, Est GFR (MDRD) Non-Af 123, BUN/Creatinine Ratio 25.5 H, Glucose 290 H, Calcium 8.1 L, Total Bilirubin 0.70, AST 21, ALT 28, Alkaline Phosphatase 122 H, Total Protein 6.2 L, Albumin 2.0 L, Globulin 4.2, Albumin/Globulin Ratio 0.5 L Current Medications Albuterol Sulfate (Albuterol Ih 8.5 Gm (Proair) Inhaler (200 Puffs)) 2 puff INHALATION Q4H PRN PRN PRN Reason: SOB/WHEEZING Albuterol Sulfate (Albuterol 2.5 Mg/3 Ml Vial.Neb.) 2.5 mg INHALATION Q2H PRN PRN PRN Reason: dyspnea, wheezing Last Admin: 05/31/20 07:45 Dose: 2.5 mg Documented by: Calamine/Phenol (Menthol/Lanolin/Calamine/Znox 113 Gm Tube) 1 applic TOPICAL BID OLLIE; Protocol Last Admin: 06/02/20 08:08 Dose: 1 applic Documented by: Chlorhexidine Gluconate (Chlorhexidine 15 Ml) 15 ml PO BID COUNT INCLUDES [facility] Last Admin: 06/02/20 08:12 Dose: 15 ml Documented by: Dexamethasone Sodium Phosphate (Dexamethasone 10 Mg/Ml Vial) 6 mg IV DAILY COUNT INCLUDES THE [facility] Stop: 06/04/20 10:01 Last Admin: 06/02/20 08:07 Dose: 6 mg Documented by: Dextrose (Dextrose 50%-Water 25 Gm/50 Ml Disp.Syrin) 0 gm IV X1 PRN; Protocol PRN Reason: Hypoglycemia Enoxaparin Sodium (Enoxaparin 40 Mg/0.4 Ml Syringe) 40 mg SC BID COUNT INCLUDES [facility] Last Admin: 06/02/20 08:06 Dose: 40 mg Documented by: Furosemide (Furosemide 20 Mg/2 Ml Vial) 20 mg IV BID@1000,1800 COUNT INCLUDES [facility] Stop: 06/02/20 18:01 Last Admin: 06/02/20 09:01 Dose: 20 mg Documented by: Glucagon (Glucagon 1 Mg/Ml Syringe) 1 mg IM .X1 PRN PRN Reason: Hypoglycemia Guaifenesin (Guaifenesin 10 Ml Udc (200mg/10ml)) 10 ml GT Q4H COUNT [facility]CLUDES [facility] Last Admin: 06/02/20 08:07 Dose: 10 ml Documented by: Sodium Chloride () 250 mls @ 15 mls/hr IV .[id number] PRN PRN Reason: Saline Flush Last Infusion: 06/02/20 03:00 Dose: 15 mls/hr Documented by: Sodium Chloride () 250 mls @ 15 mls/hr IV .[id number] PRN PRN Reason: Additional IVPB Infusion Famotidine 20 mg/ Sodium (Chloride) 10 mls @ 300 mls/hr IV Q12 COUNT [facility]CLUDES [facility] Last Infusion: 06/02/20 08:18 Dose: Infused Documented by: Fentanyl Citrate 1,000 mcg/ (Sodium Chloride) 100 mls @ 5 mls/hr CONT INF .Q20H COUNT [facility]CLUDES [facility]; Protocol Last Admin: 06/02/20 05:15 Dose: 175 mcg/hr, 17.5 mls/hr Documented by: Norepinephrine Bitartrate 8 mg (/ Sodium Chloride) 250 mls @ 9.375 mls/hr CONT INF .[id number] COUNT [facility]CLUDES THE [facility]; Protocol Last Titration: 06/02/20 08:30 Dose: 10 mcg/min, 18.8 mls/hr Documented by: Enteral Nutritional Formula (Vital Af 1.2 Rick Liquid) 1,000 mls @ 60 mls/hr GT .[id number] COUNT INCLUDES THE [facility] Last Admin: 06/02/20 09:01 Dose: 60 mls/hr Documented by: Piperacillin Sod/Tazobactam (Sod 3.375 gm/ Sodium Chloride) 50 mls @ 12.5 mls/hr IV Q8 COUNT [facility]CLUDES [facility] Last Admin: 06/02/20 06:48 Dose: 12.5 mls/hr Documented by: Propofol (Diprivan) 1,000 mg in 100 mls @ 5.136 mls/hr CONT INF .Q12H COUNT [facility]CLUDES [facility]; Protocol Last Admin: 06/02/20 08:02 Dose: 45 mcg/kg/min, 23.1 mls/hr Documented by: Insulin Glargine (Insulin Glargine 100 Units/Ml Pen) 60 units SC BID COUNT INCLUDES THE [facility] Insulin Human Lispro (Insulin Lispro 100 Unit/Ml Insuln.Pen) 0 unit SC Q6 COUNT [facility]CLUDES [facility]; Protocol Last Admin: 06/02/20 08:03 Dose: 6 u Documented by: Melatonin (Melatonin 3 Mg Tablet) 3 mg PO QHS PRN PRN PRN Reason: INSOMNIA Nystatin (Nystatin Powder 15gm Bottle) 1 applic TOPICAL BID COUNT INCLUDES [facility]; Protocol Last Admin: 06/02/20 08:08 Dose: 1 applic Documented by: Ondansetron HCl (Ondansetron 4 Mg/2 Ml Vial) 4 mg IV Q8H PRN PRN PRN Reason: NAUSEA/VOMITING Quetiapine Fumarate (Quetiapine 25 Mg Tablet) 50 mg GT BID COUNT INCLUDES THE [facility] Last Admin: 06/02/20 08:07 Dose: 50 mg Documented by: Sodium Chloride (0.9% Saline Lock 10 Ml Syringe) 10 - 40 ml IV UD PRN PRN Reason: SALINE FLUSH Last Admin: 06/01/20 08:47 Dose: 10 ml Documented by: STROKE Vital Signs/Narrative: Vital Signs Temp Pulse Resp BP Pulse Ox 06/02/20 08:30 100.9 F H 96 25 H 114/41 L 90 06/02/20 07:29 84 06/02/20 07:00 100.4 F H 84 20 H 110/42 L 93 12/23/20 06:47 82 20 H 94 06/02/20 06:00 100.3 F H 76 21 H 113/43 L 93 Medical Necessity - Tobacco Use Smoking Status: Former smoker Assessment/Plan All Active Problems (This Medical Record has been edited. Action required.) Pneumonia due to COVID-19 virus (Acute) Respiratory insufficiency (Acute) SARS (severe acute respiratory syndrome) (Acute) 1. Septic shock and acute hypoxic respiratory failure secondary to COVID-19 pneumonitis/hyponatremia/transaminitis -She had to be intubated secondary to her her pneumonitis. -Continue with Decadron, she completed remdesivir -She is currently on pressor support secondary to the sepsis as well as the amount of propofol needed to keep her sedated -Sodium is stable around 140 -LFTs have normalized, potentially from the septic shock and combination of the remdesivir -Continue with Lasix 20 mg IV twice daily 2. Uncontrolled DM2/obesity -On admission her A1c was 10.8 -Continue with insulin, once she is alert and oriented and extubated can undergo education and teaching about her new diagnosis of diabetes -She will likely need to be started on Metformin, I would hold off on initiating insulin therapy as she is a new diabetic and does not take normal medications so a combination of insulin and Metformin immediately after surviving Covid may hinder compliance in the long run -We will continue to monitor glucose closely given the Decadron -BMI of 31, when she is alert and oriented discussed lifestyle medications 3. GERD -Stable -Continue with H2 june DVT: Lovenox Inpatient E&M: [id number] [facility] L2
--- NOTE | 2020-06-02 10:10 | CASEMGMT ---
SW called pt's , inquired about the [facility] papers as they did not come through yesterday. Pt's states he still needs to call the company to see what is needed. SW advised for him to follow up w/pt's PCP as the PCP is who would be following up w/pt's care once she leaves here, gave him the number to pt's PCP. Support offered. asked to speak w/RN, SW let RN know to call . SW remains available for support to . JONATAN Gee
[2020-06-02 11:25] LABS: Bedside Glucose 244 mg/dL (70-110)
--- NOTE | 2020-06-02 13:52 | PCM.PN.ID ---
Patient Problems: Active and Suspected Problems (This Medical Record has been edited. Action required.) Pneumonia due to COVID-19 virus (Acute) Respiratory insufficiency (Acute) SARS (severe acute respiratory syndrome) (Acute) Subjective: On vent, pressors. Fever to 101.1. - Physical Exam Vitals/I&O's: Vital Signs Temp Pulse Resp BP Pulse Ox 99.4 F H 66 15 108/49 L 92 06/02/20 13:00 06/02/20 13:00 06/02/20 13:00 06/02/20 13:00 06/02/20 13:00 Oxygen Flow Rate (L/min) 8 Oxygen Delivery Method Mechanical Ventilator Weight: 86.3 kg Body Mass Index (BMI) 28.7 Finger Stick Blood Glucose 377 Intake and Output for Last 24 Hours 05/31/20 06/01/20 06/02/20 23:59 23:59 23:59 Intake Total 3867.28 / 3907.99 3216.99 / 3690.37 2093.93 / 209.93 Output Total 1865 / 1865 1200 / 1450 207 / 2069 Balance 2001.28 / 2041.99 2016.99 / 2240.37 23.93 / 23.93 General: No apparent distress Lungs: Diminished Cardiovascular: Regular rate, Regular Rhythm Abdomen: Soft, Non Tender, Non-Distended Skin: No rashes Microbiology Past 72 Hours 06/01/20 06:40 Sputum, Induced/Lukens Gram Stain - Final 06/01/20 06:40 Sputum, Induced/Lukens Respiratory Culture - Preliminary Staphylococcus aureus 05/28/20 21:15 Sputum, Induced/Lukens Gram Stain - Final 05/28/20 21:15 Sputum, Induced/Lukens Respiratory Culture - Final 05/29/20 11:00 Urine Catheter - Cuellar Urine Culture - Final Presumptive E. coli 05/26/20 04:05 Blood Culture (Wb) - Right Hand Blood Culture - Final No growth in 5 days. 05/26/20 03:48 Blood Culture (Wb) - Anticubital Right Blood Culture - Final No growth in 5 days. Laboratory Results 06/01/20 17:09: POC Glucose 324 H 06/02/20 00:00: POC Glucose 286 H 06/02/20 04:40: WBC 13.5 H, RBC 4.69, Hgb 13.0, Hct 42.2, MCV 90.0, MCH 27.7, MCHC 30.8 L D, RDW Std Deviation 44.2 H, RDW Coeff of Osorio 13.3, Plt Count 313, MPV 10.3, Immature Gran % (Auto) 2.900 H, Neut % (Auto) 75.6 H, Lymph % (Auto) 14.0 L, [place] % (Auto) 7.1, Eos % (Auto) 0.3, Baso % (Auto) 0.1, Absolute Neuts (auto) 10.2 H, Absolute Lymphs (auto) 1.89, Nucleated RBC % 0 06/02/20 04:40: Sodium 142, Potassium 3.8, Chloride 107, Carbon Dioxide 30.0, Anion Gap 5, BUN 14, Creatinine 0.55, Estim Creat Clear Calc 105.22, Est GFR (MDRD) Af Amer 149, Est GFR (MDRD) Non-Af 123, BUN/Creatinine Ratio 25.5 H, Glucose 290 H, Calcium 8.1 L, Total Bilirubin 0.70, AST 21, ALT 28, Alkaline Phosphatase 122 H, Total Protein 6.2 L, Albumin 2.0 L, Globulin 4.2, Albumin/Globulin Ratio 0.5 L 06/02/20 11:02: POC Glucose 244 H Current Medications Albuterol Sulfate (Albuterol Ih 8.5 Gm (Proair) Inhaler (200 Puffs)) 2 puff INHALATION Q4H PRN PRN PRN Reason: SOB/WHEEZING Albuterol Sulfate (Albuterol 2.5 Mg/3 Ml Vial.Neb.) 2.5 mg INHALATION Q2H PRN PRN PRN Reason: dyspnea, wheezing Last Admin: 05/31/20 07:45 Dose: 2.5 mg Documented by: Calamine/Phenol (Menthol/Lanolin/Calamine/Znox 113 Gm Tube) 1 applic TOPICAL BID OLLIE; Protocol Last Admin: 06/02/20 08:08 Dose: 1 applic Documented by: Chlorhexidine Gluconate (Chlorhexidine 15 Ml) 15 ml PO BID OLLIE Last Admin: 06/02/20 08:12 Dose: 15 ml Documented by: Dexamethasone Sodium Phosphate (Dexamethasone 10 Mg/Ml Vial) 6 mg IV DAILY OLLIE Stop: 06/04/20 10:01 Last Admin: 06/02/20 08:07 Dose: 6 mg Documented by: Dextrose (Dextrose 50%-Water 25 Gm/50 Ml Disp.Syrin) 0 gm IV X1 PRN; Protocol PRN Reason: Hypoglycemia Enoxaparin Sodium (Enoxaparin 40 Mg/0.4 Ml Syringe) 40 mg SC BID [facility] Last Admin: 06/02/20 08:06 Dose: 40 mg Documented by: Furosemide (Furosemide 20 Mg/2 Ml Vial) 20 mg IV BID@1000,1800 [facility] Stop: 06/02/20 18:01 Last Admin: 06/02/20 09:01 Dose: 20 mg Documented by: Glucagon (Glucagon 1 Mg/Ml Syringe) 1 mg IM .X1 PRN PRN Reason: Hypoglycemia Guaifenesin (Guaifenesin 10 Ml Udc (200mg/10ml)) 10 ml GT Q4H [facility] Last Admin: 06/02/20 13:49 Dose: 10 ml Documented by: Sodium Chloride () 250 mls @ 15 mls/hr IV .[id number] PRN PRN Reason: Saline Flush Last Infusion: 06/02/20 03:00 Dose: 15 mls/hr Documented by: Sodium Chloride () 250 mls @ 15 mls/hr IV .[id number] PRN PRN Reason: Additional IVPB Infusion Famotidine 20 mg/ Sodium (Chloride) 10 mls @ 300 mls/hr IV Q12 [facility] Last Infusion: 06/02/20 08:18 Dose: Infused Documented by: Fentanyl Citrate 1,000 mcg/ (Sodium Chloride) 100 mls @ 5 mls/hr CONT INF .Q20H [facility]; Protocol Last Titration: 06/02/20 13:00 Dose: 45 mcg/hr, 4.5 mls/hr Documented by: Norepinephrine Bitartrate 8 mg (/ Sodium Chloride) 250 mls @ 9.375 mls/hr CONT INF .[id number] [facility]; Protocol Last Titration: 06/02/20 13:00 Dose: 10 mcg/min, 18.8 mls/hr Documented by: Enteral Nutritional Formula (Vital Af 1.2 Rick Liquid) 1,000 mls @ 60 mls/hr GT .[id number] [facility] Last Admin: 06/02/20 09:01 Dose: 60 mls/hr Documented by: Piperacillin Sod/Tazobactam (Sod 3.375 gm/ Sodium Chloride) 50 mls @ 12.5 mls/hr IV Q8 [facility] Last Admin: 06/02/20 13:45 Dose: 12.5 mls/hr Documented by: Propofol (Diprivan) 1,000 mg in 100 mls @ 5.136 mls/hr CONT INF .Q12H [facility]; Protocol Last Titration: 06/02/20 13:00 Dose: 45 mcg/kg/min, 23.1 mls/hr Documented by: Vancomycin IV Pharmacy to Dose (1 ea/ Sodium Chloride) 500 mls @ 250 mls/hr IV X1 PRN; Protocol PRN Reason: Rx to Dose Insulin Glargine (Insulin Glargine 100 Units/Ml Pen) 60 units SC BID [facility] Insulin Human Lispro (Insulin Lispro 100 Unit/Ml Insuln.Pen) 0 unit SC Q6 [facility]; Protocol Last Admin: 06/02/20 11:04 Dose: 4 u Documented by: Melatonin (Melatonin 3 Mg Tablet) 3 mg PO QHS PRN PRN PRN Reason: INSOMNIA Nystatin (Nystatin Powder 15gm Bottle) 1 applic TOPICAL BID [facility]; Protocol Last Admin: 06/02/20 08:08 Dose: 1 applic Documented by: Ondansetron HCl (Ondansetron 4 Mg/2 Ml Vial) 4 mg IV Q8H PRN PRN PRN Reason: NAUSEA/VOMITING Quetiapine Fumarate (Quetiapine 25 Mg Tablet) 50 mg GT BID [facility] Last Admin: 06/02/20 08:07 Dose: 50 mg Documented by: Sodium Chloride (0.9% Saline Lock 10 Ml Syringe) 10 - 40 ml IV UD PRN PRN Reason: SALINE FLUSH Last Admin: 06/01/20 08:47 Dose: 10 ml Documented by: Medical Necessity - Tobacco Use Smoking Status: Former smoker Route of nutrition/ use of supplements: [] Nutritional Intake: [] IV Site: [] Cuellar Catheter: [] - Assessment/Plan Antibiotics: [] Assessment/Plan: [] Active and Suspected Problems (This Medical Record has been edited. Action required.) Pneumonia due to COVID-19 virus (Acute) Respiratory insufficiency (Acute) SARS (severe acute respiratory syndrome) (Acute) covid with hypoxia - sx start 05/19. Lactate over 2. Mild rise in ALT. Pulm is seeing. D-dimer was 0.9, CT neg for PE, on lovenox 40mg bid. Cont dex, completed remdesivir. On zosyn. Fever still, on vent, pressors. Ucx with ecoli. Sputum now with staph aureus. Will start vanc. Will follow
[2020-06-02 18:10] LABS: Bedside Glucose 261 mg/dL (70-110)
--- NOTE | 2020-06-02 18:24 | PCM.RX.CS ---
Consult Pharmacy has been consulted to manage selected antiobiotic: Vancomycin Type of Consult: New start Suspected Infection: Pneumonia Labs: Sodium 142 mmol/L (136-145) 06/02/20 04:40 Potassium 3.8 mmol/L (3.5-5.1) 06/02/20 04:40 Chloride 107 mmol/L (98-107) 06/02/20 04:40 Carbon Dioxide 30.0 mmol/L (21.0-32.0) 06/02/20 04:40 Anion Gap 5 (5-15) 06/02/20 04:40 BUN 14 mg/dL (7-18) 06/02/20 04:40 Creatinine 0.55 mg/dL (0.55-1.02) 06/02/20 04:40 Est GFR (MDRD) Af Amer 149 mL/min (>60) 06/02/20 04:40 Est GFR (MDRD) Non-Af 123 mL/min (>60) 06/02/20 04:40 BUN/Creatinine Ratio 25.5 RATIO (10-20) H 06/02/20 04:40 Glucose 290 mg/dL (74-106) H 06/02/20 04:40 Microbiology: Microbiology 06/01/20 06:40 Sputum, Induced/Lukens Gram Stain - Final 06/01/20 06:40 Sputum, Induced/Lukens Respiratory Culture - Preliminary Staphylococcus aureus 05/28/20 21:15 Sputum, Induced/Lukens Gram Stain - Final 05/28/20 21:15 Sputum, Induced/Lukens Respiratory Culture - Final 05/29/20 11:00 Urine Catheter - Cuellar Urine Culture - Final Presumptive E. coli 05/26/20 04:05 Blood Culture (Wb) - Right Hand Blood Culture - Final No growth in 5 days. 05/26/20 03:48 Blood Culture (Wb) - Anticubital Right Blood Culture - Final No growth in 5 days. Weight used for dosin.3 kg Estimated Creatinine Clearance: 105ML/MIN Goal Trough: 15-20 mcg/mL Pharmacy Plan for Drug Dosing: Give initial dose of 2000mg IV x1, then continue with 1750mg IV q12h (predicted trough of 16 per Clinical Pharmacology vanc dosing). Will check a trough before the 4th total dose. Pharmacy Service will continue to monitor and adjust dosing as required. Follow-Up Labs: Trough Vancomycin Labs to be done on [date and time ordered]: 06/04/20 05:30
[2020-06-02] MEDS: Propofol 10MG/Ml 1,000 MG/100 ML Bottle 25.7 MG CONT INF (19:00)
--- NOTE | 2020-06-02 19:00 | NURSING ---
Sedation maxed out at start of this RN's shift. Fentanyl at 200 mcg/hr and Propofol at 50 mcg/kg/min.
[2020-06-02 21:20] LABS: Bedside Glucose 307 mg/dL (70-110)
[2020-06-03] VITALS (63 sets, daily range): BP systolic 85–188; BP diastolic 15–77; PULSE 61–111; RESP 14–29; TEMP 36.1–38.7; O2SAT 80–96
[2020-06-03] MEDS: Insulin Lispro 100 UNIT/ML INSULN.PEN SC ×5 (00:15→23:02)
[2020-06-03 00:36] LABS: Bedside Glucose 243 mg/dL (70-110)
[2020-06-03] MEDS: guaiFENesin 10 ML UDC (200MG/10ML) GT ×6 (01:53→20:19)
[2020-06-03] MEDS: Propofol 10MG/Ml 1,000 MG/100 ML Bottle 23.1 MG CONT INF ×2 (02:30→06:30)
[2020-06-03] MEDS: Vital AF 1.2 Cal Liquid 1,000 ML 60 ML GT (03:34)
[2020-06-03 04:40] LABS: Absolute Lymphocyte Count 2.91 X10^3/uL (0.83-4.51); Absolute Neutrophil Count 13.6 X10^3/uL (2.0-7.7); Basophil# 0.06 X10^3/uL; Basophil% 0.3 % (0-1); Eosinophils% 0.5 % (0-5); Hematocrit 43.7 % (37-47); Hemoglobin 13.8 g/dL (12.0-15.0); Lymphocyte # 2.91 X10^3/ul (4.0); Lymphocyte % 15.9 % (19-41); Mean Corp Hgb Conc 31.6 g/dL (32-36); Mean Corpuscular Hgb 28.2 pg (27.0-32.0); Mean Corpuscular Volume 89.2 fL (81-99); Mean Platelet Vol. 9.9 fl (6.2-12.0); Monocyte# 0.96 X10^3/uL; Monocyte% 5.3 % (0-10); NRBC Flagged by Analyzer 0 % (0-5); Neutrophil # 13.63 X10^3/uL (2.7-7.7); Neutrophil % 74.8 % (47-70); Platelet Count 348 K/mm3 (150-450); RBC Distribution Width CV 13.3 % (11.6-14.6); RBC Distribution Width SD 43.7 fl (35.1-43.9); White Blood Count 18.3 K/mm3 (4.4-11.0)
[2020-06-03 04:54] LABS: Anion Gap 7 (5-15); BUN 13 mg/dL (7-18); BUN/Creat Ratio 28.3 RATIO (10-20); Calcium,Total 8.2 mg/dL (8.5-10.1); Chloride 98 mmol/L (98-107); Creatinine, Serum 0.46 mg/dL (0.55-1.02); EST Glomerular Filtration Rate 151 mL/min (>60); Est Glom Filt Rate - Afr Amer 182 mL/min (>60); Estimated Creatinine Clearance 125.81 ml/min; Glucose 287 mg/dL (74-106); Magnesium 1.4 mg/dL (1.6-2.6); Phosphorus 3.4 mg/dL (2.5-4.9); Potassium 3.1 mmol/L (3.5-5.1); Sodium Level 137 mmol/L (136-145)
[2020-06-03] MEDS: Alteplase 2 MG/2 ML Vial IV (05:30)
--- NOTE | 2020-06-03 05:39 | PCM.PN.INT ---
Subjective: The patient was seen and examined at the bedside this morning. Events from the last 24 hours have been reviewed. The patient currently has a low-grade fever and remains on assist control mode of mechanical ventilation with an FiO2 requirement of 70% and PEEP of 10. Potassium is low this morning at 3.1. The patient is currently documented to be overall net +8.2 L for the hospital admission. Objective: The patient's most recent lab work, culture data and imaging studies have all been personally reviewed. Coronavirus PCR was positive on May 22. Urine culture was positive for presumptive E. coli. Sputum culture was positive for staph aureus. General: - - Remains intubated, sedated and mechanically ventilated. HEENT: Atraumatic, PERRLA, Normocephalic Oral: No Gingival or Mucosal Lesions/ Ulcerations, - - Endotracheal and OG tubes in place Neck: Supple, No Nodes, Trachea Midline Lungs: Diminished, Rhonchi Cardiovascular: Regular rate, Regular Rhythm Abdomen: Bowel Sounds Present, Soft, Non Tender Extremities: No clubbing, No cyanosis, Edema Skin: No breakdown Musculoskeletal: No Tenderness to Palpation of Joints or Extremities Lymphatic: No Cervical, Supraclavicular, or Inguinal Adenopathy Neurological: - - No focal neurological deficits. Remains sedated on the ventilator. Vital Signs Temp Pulse Resp BP Pulse Ox 101.1 F H 74 23 H 152/52 H 88 06/03/20 05:00 06/03/20 05:00 06/03/20 05:00 06/03/20 05:00 06/03/20 05:00 Oxygen Flow Rate (L/min) 8 Oxygen Delivery Method Mechanical Ventilator Weight: 194 lb 0.108 oz Body Mass Index (BMI) 28.7 Finger Stick Blood Glucose 377 Intake and Output for Last 24 Hours 06/01/20 06/02/20 06/03/20 23:59 23:59 23:59 Intake Total 3216.99 / 3690.37 3311.28 / 3480.96 864.61 / 864.61 Output Total 1200 / 1450 3870 / 4020 480 / 480 Balance 2016.99 / 2240.37 -558.72 / -539.04 384.61 / 384.61 Labs (Last 48 Hours) 06/01/20 06/01/20 06/01/20 05:28 10:49 17:09 WBC RBC Hgb Hct MCV MCH MCHC RDW Std Deviation RDW Coeff of Osorio Plt Count MPV Immature Gran % (Auto) Neut % (Auto) Lymph % (Auto) [place] % (Auto) Eos % (Auto) Baso % (Auto) Absolute Neuts (auto) Absolute Lymphs (auto) Nucleated RBC % Sodium Potassium Chloride Carbon Dioxide Anion Gap BUN Creatinine Estim Creat Clear Calc Est GFR (MDRD) Af Amer Est GFR (MDRD) Non-Af BUN/Creatinine Ratio Glucose Calcium Phosphorus Magnesium Total Bilirubin AST ALT Alkaline Phosphatase Total Protein Albumin Globulin Albumin/Globulin Ratio POC Glucose 187 H 227 H 324 H 06/02/20 06/02/20 06/02/20 00:00 04:40 04:40 WBC 13.5 H RBC 4.69 Hgb 13.0 Hct 42.2 MCV 90.0 MCH 27.7 MCHC 30.8 L D RDW Std Deviation 44.2 H RDW Coeff of Osorio 13.3 Plt Count 313 MPV 10.3 Immature Gran % (Auto) 2.900 H Neut % (Auto) 75.6 H Lymph % (Auto) 14.0 L [place] % (Auto) 7.1 Eos % (Auto) 0.3 Baso % (Auto) 0.1 Absolute Neuts (auto) 10.2 H Absolute Lymphs (auto) 1.89 Nucleated RBC % 0 Sodium 142 Potassium 3.8 Chloride 107 Carbon Dioxide 30.0 Anion Gap 5 BUN 14 Creatinine 0.55 Estim Creat Clear Calc 105.22 Est GFR (MDRD) Af Amer 149 Est GFR (MDRD) Non-Af 123 BUN/Creatinine Ratio 25.5 H Glucose 290 H Calcium 8.1 L Phosphorus Magnesium Total Bilirubin 0.70 AST 21 ALT 28 Alkaline Phosphatase 122 H Total Protein 6.2 L Albumin 2.0 L Globulin 4.2 Albumin/Globulin Ratio 0.5 L POC Glucose 286 H 06/02/20 06/02/20 06/02/20 11:02 17:14 20:53 WBC RBC Hgb Hct MCV MCH MCHC RDW Std Deviation RDW Coeff of Osorio Plt Count MPV Immature Gran % (Auto) Neut % (Auto) Lymph % (Auto) [place] % (Auto) Eos % (Auto) Baso % (Auto) Absolute Neuts (auto) Absolute Lymphs (auto) Nucleated RBC % Sodium Potassium Chloride Carbon Dioxide Anion Gap BUN Creatinine Estim Creat Clear Calc Est GFR (MDRD) Af Amer Est GFR (MDRD) Non-Af BUN/Creatinine Ratio Glucose Calcium Phosphorus Magnesium Total Bilirubin AST ALT Alkaline Phosphatase Total Protein Albumin Globulin Albumin/Globulin Ratio POC Glucose 244 H 261 H 307 H 06/03/20 06/03/20 06/03/20 00:13 04:30 04:30 WBC 18.3 H RBC 4.90 Hgb 13.8 Hct 43.7 MCV 89.2 MCH 28.2 MCHC 31.6 L RDW Std Deviation 43.7 RDW Coeff of Osorio 13.3 Plt Count 348 MPV 9.9 Immature Gran % (Auto) 3.200 H Neut % (Auto) 74.8 H Lymph % (Auto) 15.9 L [place] % (Auto) 5.3 Eos % (Auto) 0.5 Baso % (Auto) 0.3 Absolute Neuts (auto) 13.6 H Absolute Lymphs (auto) 2.91 Nucleated RBC % 0 Sodium 137 Potassium 3.1 L Chloride 98 Carbon Dioxide 32.0 Anion Gap 7 BUN 13 Creatinine 0.46 L Estim Creat Clear Calc 125.81 Est GFR (MDRD) Af Amer 182 Est GFR (MDRD) Non-Af 151 BUN/Creatinine Ratio 28.3 H Glucose 287 H Calcium 8.2 L Phosphorus 3.4 Magnesium 1.4 L Total Bilirubin AST ALT Alkaline Phosphatase Total Protein Albumin Globulin Albumin/Globulin Ratio POC Glucose 243 H Microbiology 06/01/20 06:40 Sputum, Induced/Lukens Gram Stain - Final 06/01/20 06:40 Sputum, Induced/Lukens Respiratory Culture - Preliminary Staphylococcus aureus Clinical Impression(s) from Imaging Studies Chest X-Ray 05/26/20 03:41 IMPRESSION: Multifocal pneumonia to include viral pneumonia. Electronically Signed: Forrest Cee MD at 4:28 EST , Service support , Chest CTA 05/26/20 04:23 IMPRESSION: No pulmonary embolus or thoracic aortic dissection. Diffuse groundglass opacities compatible with multifocal pneumonia very suggestive of viral pneumonia. Multiple small mediastinal lymph nodes. Electronically Signed: Forrest Cee MD at 5:18 EST , Service support , Chest X-Ray 05/28/20 04:38 IMPRESSION: GA confluent airspace disease likely pneumonia multilobular and bilateral. Aeration has worsened. Electronically Signed: Nighat Neal MD at 5:48 EST , Service support , Chest X-Ray 05/28/20 19:20 IMPRESSION: 1. Tubes and catheters as described. 2. Bilateral lower lobe pulmonary infiltrates unchanged from prior exam. Electronically Signed: Xavier Beach DO at 19:57 EST Tel [phone], Service support , KUB X-Ray 05/28/20 19:20 IMPRESSION: 1. OG tube as described. 2. No acute intra-abdominal process. 3. Persistent bibasilar infiltrates. Electronically Signed: Xavier Beach DO at 19:52 EST Tel [phone], Service support , Chest X-Ray 05/31/20 08:37 IMPRESSION: All the support tubes are in good position. Residual bilateral pulmonary infiltrates although there has been a mild degree of improvement as compared to prior study. Electronically Signed: Mauricio Sifuentes at 9:14 EST , Service support , Chest X-Ray 05/31/20 19:30 IMPRESSION: Endotracheal tube at the right main bronchus. Worsening bilateral edema or pneumonia. Electronically Signed: Johny Calderon MD at 21:23 EST , Service support , ADDENDUM: 05/31/208 IMPRESSION: Endotracheal tube at the right main bronchus. Worsening bilateral edema or pneumonia. N.B. : Tina Hicks RN , RN, confirmed on 05/31/2020 21:31:35 (ET) that the healthcare facility has received the radiology report. Electronically Signed: Johny Calderon MD at 21:23 EST , Service support , KUB X-Ray 05/31/20 20:40 IMPRESSION: Gastric tube with tip in the body. Electronically Signed: eVrona Cardellie, at 21:13 EST Tel , Service support , Medical Necessity - Tobacco Use Smoking Status: Former smoker Assessment/Plan All Active Problems (This Medical Record has been edited. Action required.) Pneumonia due to COVID-19 virus (Acute) Respiratory insufficiency (Acute) SARS (severe acute respiratory syndrome) (Acute) RECOMMENDATIONS: 1. Continue to wean FiO2 and PEEP to maintain oxygen saturations at or above 90%. 2. Wean Levophed to maintain a mean arterial pressure at or above 65 mmHg. 3. Continue Decadron to complete treatment course. 4. Continue antimicrobials as ordered. 5. Continue Lovenox as ordered. 6. Continue Lantus and sliding scale insulin coverage. 7. Continue tube feeds as tolerated. 8. Potassium repletion. IMPRESSIONS: 1. Acute hypoxemic respiratory failure secondary to COVID-19 pneumonia The patient continued to decompensate from a respiratory perspective following admission, eventually requiring ICU transfer and subsequent intubation on May 28. The patient has completed a treatment course of remdesivir and will remain on Decadron with plans to complete a 10-day treatment course. Given staph aureus identified on sputum culture, antimicrobials will be continued. Continue to wean FiO2 and PEEP to maintain oxygen saturations at or above 90%. Continue tube feeds as tolerated. 2. Septic shock Continue current supportive measures including vasopressor support to maintain a mean arterial pressure at or above 65 mmHg. Continue antimicrobials per ID recommendations. 3. Acute kidney injury Improved. Likely prerenal in etiology with component of ischemic ATN in the setting of #2. Continue current supportive measures including vasopressor support to maintain hemodynamic stability. Continue to monitor urine output. No current indication for renal replacement therapy. 4. Hypokalemia Electrolyte repletion as ordered. Recheck levels in the morning. 5. Poorly controlled diabetes mellitus Continue Lantus and sliding scale insulin coverage. 6. Transaminitis Potentially related to acute infection versus fatty liver disease. Continue to monitor closely in light of remdesivir utilization. 7. Obesity/GERD Complicates care, management, recovery and prognosis. Physical therapy to work with the patient once respiratory status has improved. TIME: 38 minutes of critical care time, independent of procedures, was spent addressing the patient's acute hypoxemic respiratory failure, COVID-19 pneumonia, septic shock, acute kidney injury, diabetes mellitus, review of all data and collaboration with the care team. ([id number]) [phone] [id number] Critical care first hour
[2020-06-03] MEDS: dexAMETHasone 10 MG/ML Vial 6 MG IV (08:39)
[2020-06-03] MEDS: Famotidine 200 MG/20 ML MDV 20 MG in 0.9% Normal Saline (Pres. free 8 ML 300 MG IV (08:41)
[2020-06-03] MEDS: QUEtiapine 25 MG Tablet 50 MG GT ×2 (08:41→20:19)
[2020-06-03] MEDS: Enoxaparin 40 MG/0.4 ML Syringe SC ×2 (08:42→20:19)
[2020-06-03] MEDS: Chlorhexidine 15 ML PO ×2 (08:44→20:19)
[2020-06-03] MEDS: Menthol/Lanolin/Calamine/Znox 113 GM Tube 1 APPLIC TOPICAL ×2 (08:44→20:20)
[2020-06-03] MEDS: Furosemide 40 MG/4 ML Vial IV (08:44)
--- NOTE | 2020-06-03 09:48 | CASEMGMT ---
RN CM Note: participated in ICU interdisciplinary rounds. Remains intubated and on vent with 70% O2. Remains on Decadron 6mg IV QD, Lovenox SQ, Fentanyl and Propofol gtt, Levophed gtt and Tube feedings @ 60 ml/hr. Passed mobility so PT/OT to work with pt today. DC Planning deferred @ this time. Jimmy HERNANDEZN RN ACM
--- NOTE | 2020-06-03 10:24 | CASEMGMT ---
SW called , offered support. He states he is doing okay today. SW let him know there will be a SW here Sunday should he need anything. SW will continue to follow for support/discharge planning. JONATAN Gee
[2020-06-03] MEDS: Magnesium Sulfate 4gm/100mL 4 GM/100 ML IV.SOLN. IV (10:47)
[2020-06-03] MEDS: Propofol 10MG/Ml 1,000 MG/100 ML Bottle 26.4 MG CONT INF ×5 (10:47→23:13)
[2020-06-03] MEDS: Nystatin Powder 15gm Bottle 1 APPLIC TOPICAL ×2 (10:49→20:20)
--- NOTE | 2020-06-03 12:45 | PCM.PN.ID ---
Patient Problems: Active and Suspected Problems (This Medical Record has been edited. Action required.) Pneumonia due to COVID-19 virus (Acute) Respiratory insufficiency (Acute) SARS (severe acute respiratory syndrome) (Acute) Subjective: On vent, levophed. Fever to 101.7 overnight. - Physical Exam Vitals/I&O's: Vital Signs Temp Pulse Resp BP Pulse Ox 100.5 F H 74 20 H 115/45 L 91 06/03/20 11:00 06/03/20 11:21 06/03/20 11:21 06/03/20 11:00 06/03/20 11:21 Oxygen Flow Rate (L/min) 8 Oxygen Delivery Method Mechanical Ventilator Weight: 88 kg Body Mass Index (BMI) 28.7 Finger Stick Blood Glucose 377 Intake and Output for Last 24 Hours 06/01/20 06/02/20 06/03/20 23:59 23:59 23:59 Intake Total 3216.99 / 3690.37 3311.28 / 3480.96 2458.19 / 2458.19 Output Total 1200 / 1450 3870 / 4020 1230 / 1230 Balance 2016.99 / 2240.37 -558.72 / -539.04 1228.19 / 1228.19 General: No apparent distress, Non-Cooperative Lungs: Diminished Cardiovascular: Regular rate, Regular Rhythm Abdomen: Soft, Non Tender, Non-Distended Skin: No rashes Microbiology Past 72 Hours 06/01/20 06:40 Sputum, Induced/Lukens Gram Stain - Final 06/01/20 06:40 Sputum, Induced/Lukens Respiratory Culture - Final Meth. resistant Staph. aureus 05/28/20 21:15 Sputum, Induced/Lukens Gram Stain - Final 05/28/20 21:15 Sputum, Induced/Lukens Respiratory Culture - Final 05/29/20 11:00 Urine Catheter - Cuellar Urine Culture - Final Presumptive E. coli Laboratory Results 06/02/20 17:14: POC Glucose 261 H 06/02/20 20:53: POC Glucose 307 H 06/03/20 00:13: POC Glucose 243 H 06/03/20 04:30: WBC 18.3 H, RBC 4.90, Hgb 13.8, Hct 43.7, MCV 89.2, MCH 28.2, MCHC 31.6 L, RDW Std Deviation 43.7, RDW Coeff of Osorio 13.3, Plt Count 348, MPV 9.9, Immature Gran % (Auto) 3.200 H, Neut % (Auto) 74.8 H, Lymph % (Auto) 15.9 L, [place] % (Auto) 5.3, Eos % (Auto) 0.5, Baso % (Auto) 0.3, Absolute Neuts (auto) 13.6 H, Absolute Lymphs (auto) 2.91, Nucleated RBC % 0 06/03/20 04:30: Sodium 137, Potassium 3.1 L, Chloride 98, Carbon Dioxide 32.0, Anion Gap 7, BUN 13, Creatinine 0.46 L, Estim Creat Clear Calc 125.81, Est GFR (MDRD) Af Amer 182, Est GFR (MDRD) Non-Af 151, BUN/Creatinine Ratio 28.3 H, Glucose 287 H, Calcium 8.2 L, Phosphorus 3.4, Magnesium 1.4 L Current Medications Albuterol Sulfate (Albuterol Ih 8.5 Gm (Proair) Inhaler (200 Puffs)) 2 puff INHALATION Q4H PRN PRN PRN Reason: SOB/WHEEZING Albuterol Sulfate (Albuterol 2.5 Mg/3 Ml Vial.Neb.) 2.5 mg INHALATION Q2H PRN PRN PRN Reason: dyspnea, wheezing Last Admin: 05/31/20 07:45 Dose: 2.5 mg Documented by: Calamine/Phenol (Menthol/Lanolin/Calamine/Znox 113 Gm Tube) 1 applic TOPICAL BID [facility]; Protocol Last Admin: 06/03/20 08:44 Dose: 1 applic Documented by: Chlorhexidine Gluconate (Chlorhexidine 15 Ml) 15 ml PO BID [facility] Last Admin: 06/03/20 08:44 Dose: 15 ml Documented by: Dexamethasone Sodium Phosphate (Dexamethasone 10 Mg/Ml Vial) 6 mg IV DAILY [facility] Stop: 06/04/20 10:01 Last Admin: 06/03/20 08:39 Dose: 6 mg Documented by: Dextrose (Dextrose 50%-Water 25 Gm/50 Ml Disp.Syrin) 0 gm IV X1 PRN; Protocol PRN Reason: Hypoglycemia Enoxaparin Sodium (Enoxaparin 40 Mg/0.4 Ml Syringe) 40 mg SC BID [facility] Last Admin: 06/03/20 08:42 Dose: 40 mg Documented by: Glucagon (Glucagon 1 Mg/Ml Syringe) 1 mg IM .X1 PRN PRN Reason: Hypoglycemia Guaifenesin (Guaifenesin 10 Ml Udc (200mg/10ml)) 10 ml GT Q4H OLLIE Last Admin: 06/03/20 08:39 Dose: 10 ml Documented by: Sodium Chloride () 250 mls @ 15 mls/hr IV .[id number] PRN PRN Reason: Saline Flush Last Infusion: 06/02/20 23:29 Dose: Infused Documented by: Sodium Chloride () 250 mls @ 15 mls/hr IV .[id number] PRN PRN Reason: Additional IVPB Infusion Famotidine 20 mg/ Sodium (Chloride) 10 mls @ 300 mls/hr IV Q12 OLLIE Last Infusion: 06/03/20 08:43 Dose: Infused Documented by: Fentanyl Citrate 1,000 mcg/ (Sodium Chloride) 100 mls @ 5 mls/hr CONT INF .Q20H OLLIE; Protocol Last Titration: 06/03/20 11:00 Dose: 200 mcg/hr, 20 mls/hr Documented by: Norepinephrine Bitartrate 8 mg (/ Sodium Chloride) 250 mls @ 9.375 mls/hr CONT INF .[id number] OLLIE; Protocol Last Titration: 06/03/20 11:00 Dose: 17 mcg/min, 31.9 mls/hr Documented by: Enteral Nutritional Formula (Vital Af 1.2 Rick Liquid) 1,000 mls @ 60 mls/hr GT .[id number] OLLIE Last Admin: 06/03/20 03:34 Dose: 60 mls/hr Documented by: Piperacillin Sod/Tazobactam (Sod 3.375 gm/ Sodium Chloride) 50 mls @ 12.5 mls/hr IV Q8 OLLIE Last Admin: 06/03/20 09:30 Dose: 12.5 mls/hr Documented by: Propofol (Diprivan) 1,000 mg in 100 mls @ 5.28 mls/hr CONT INF .Q12H OLLIE; Protocol Last Titration: 06/03/20 11:00 Dose: 50 mcg/kg/min, 26.4 mls/hr Documented by: Vancomycin IV Pharmacy to Dose (1 ea/ Sodium Chloride) 500 mls @ 250 mls/hr IV X1 PRN; Protocol PRN Reason: Rx to Dose Vancomycin HCl 1,750 mg/ (Sodium Chloride) 535 mls @ 250 mls/hr IV Q12H [facility] Last Infusion: 06/03/20 08:30 Dose: Infused Documented by: Insulin Glargine (Insulin Glargine 100 Units/Ml Pen) 60 units SC BID [facility] Last Admin: 06/03/20 08:42 Dose: 60 u Documented by: Insulin Human Lispro (Insulin Lispro 100 Unit/Ml Insuln.Pen) 0 unit SC Q6H OLLIE; Protocol Melatonin (Melatonin 3 Mg Tablet) 3 mg PO QHS PRN PRN PRN Reason: INSOMNIA Nystatin (Nystatin Powder 15gm Bottle) 1 applic TOPICAL BID [facility]; Protocol Last Admin: 06/03/20 10:49 Dose: 1 applic Documented by: Ondansetron HCl (Ondansetron 4 Mg/2 Ml Vial) 4 mg IV Q8H PRN PRN PRN Reason: NAUSEA/VOMITING Quetiapine Fumarate (Quetiapine 25 Mg Tablet) 50 mg GT BID OLLIE Last Admin: 06/03/20 08:41 Dose: 50 mg Documented by: Sodium Chloride (0.9% Saline Lock 10 Ml Syringe) 10 - 40 ml IV UD PRN PRN Reason: SALINE FLUSH Last Admin: 06/01/20 08:47 Dose: 10 ml Documented by: Medical Necessity - Tobacco Use Smoking Status: Former smoker Route of nutrition/ use of supplements: [] Nutritional Intake: [] IV Site: [] Cuellar Catheter: [] - Assessment/Plan Antibiotics: [] Assessment/Plan: [] Active and Suspected Problems (This Medical Record has been edited. Action required.) Pneumonia due to COVID-19 virus (Acute) Respiratory insufficiency (Acute) SARS (severe acute respiratory syndrome) (Acute) covid with hypoxia - sx start 05/19. Lactate over 2. Mild rise in ALT. Pulm is seeing. D-dimer was 0.9, CT neg for PE, on lovenox 40mg bid. Cont dex, completed remdesivir. On zosyn. Fever still, on vent, pressors. Ucx with ecoli. Sputum now with MRSA. 06/02 started vanc. Will follow
[2020-06-03 12:55] LABS: Bedside Glucose 276 mg/dL (70-110)
--- NOTE | 2020-06-03 16:48 | PN_ITS ---
Patient Problems: Active and Suspected Problems (This Medical Record has been edited. Action required.) Pneumonia due to COVID-19 virus (Acute) Respiratory insufficiency (Acute) SARS (severe acute respiratory syndrome) (Acute) Subjective: Intubated and sedated. Spiked a temperature overnight and had to be started on vancomycin yesterday for MRSA sputum culture Vitals/I&O's: Vital Signs Temp Pulse Resp BP Pulse Ox 99.9 F H 62 18 118/45 L 94 06/03/20 12:00 06/03/20 16:00 06/03/20 13:45 06/03/20 12:00 06/03/20 16:00 Oxygen Flow Rate (L/min) 8 Oxygen Delivery Method Mechanical Ventilator Weight: 194 lb 0.108 oz Body Mass Index (BMI) 28.7 Finger Stick Blood Glucose 377 Intake and Output for Last 24 Hours 06/01/20 06/02/20 06/03/20 23:59 23:59 23:59 Intake Total 3216.99 / 3690.37 3311.28 / 3480.96 2873.99 / 2873.99 Output Total 1200 / 1450 3870 / 4020 2170 / 2170 Balance 2016.99 / 2240.37 -558.72 / -539.04 703.99 / 703.99 General: - - Intubated and sedated HEENT: Atraumatic, PERRLA, Normocephalic Oral: Dry mucosa Neck: Supple, No JVD Lungs: Mild rhonchi bilaterally, No wheeze, No rales, Diminished Cardiovascular: Regular rate, Regular Rhythm, Normal S1, Normal S2, No murmurs Abdomen: Soft, Non Tender, Non-Distended, No Hepato-splenomegaly Extremities: No edema, Capillary Refill Less than 3 Seconds Skin: No rashes, No breakdown Neurological: - - Intubated and sedated Psych/Mental Status:- - Intubated and sedated Microbiology Past 72 Hours 06/01/20 06:40 Sputum, Induced/Lukens Gram Stain - Final 06/01/20 06:40 Sputum, Induced/Lukens Respiratory Culture - Final Meth. resistant Staph. aureus Laboratory Results 06/02/20 17:14: POC Glucose 261 H 06/02/20 20:53: POC Glucose 307 H 06/03/20 00:13: POC Glucose 243 H 06/03/20 04:30: WBC 18.3 H, RBC 4.90, Hgb 13.8, Hct 43.7, MCV 89.2, MCH 28.2, MCHC 31.6 L, RDW Std Deviation 43.7, RDW Coeff of Osorio 13.3, Plt Count 348, MPV 9.9, Immature Gran % (Auto) 3.200 H, Neut % (Auto) 74.8 H, Lymph % (Auto) 15.9 L , [place] % (Auto) 5.3, Eos % (Auto) 0.5, Baso % (Auto) 0.3, Absolute Neuts (auto) 13.6 H, Absolute Lymphs (auto) 2.91, Nucleated RBC % 0 06/03/20 04:30: Sodium 137, Potassium 3.1 L, Chloride 98, Carbon Dioxide 32.0, Anion Gap 7, BUN 13, Creatinine 0.46 L, Estim Creat Clear Calc 125.81, Est GFR (MDRD) Af Amer 182, Est GFR (MDRD) Non-Af 151, BUN/Creatinine Ratio 28.3 H, Glucose 287 H, Calcium 8.2 L, Phosphorus 3.4, Magnesium 1.4 L 06/03/20 12:53: POC Glucose 276 H Current Medications Albuterol Sulfate (Albuterol Ih 8.5 Gm (Proair) Inhaler (200 Puffs)) 2 puff INHALATION Q4H PRN PRN PRN Reason: SOB/WHEEZING Albuterol Sulfate (Albuterol 2.5 Mg/3 Ml Vial.Neb.) 2.5 mg INHALATION Q2H PRN PRN PRN Reason: dyspnea, wheezing Last Admin: 05/31/20 07:45 Dose: 2.5 mg Documented by: Calamine/Phenol (Menthol/Lanolin/Calamine/Znox 113 Gm Tube) 1 applic TOPICAL BID OLLIE; Protocol Last Admin: 06/03/20 08:44 Dose: 1 applic Documented by: Chlorhexidine Gluconate (Chlorhexidine 15 Ml) 15 ml PO BID OLLIE Last Admin: 06/03/20 08:44 Dose: 15 ml Documented by: Dexamethasone Sodium Phosphate (Dexamethasone 10 Mg/Ml Vial) 6 mg IV DAILY OLLIE Stop: 06/04/20 10:01 Last Admin: 06/03/20 08:39 Dose: 6 mg Documented by: Dextrose (Dextrose 50%-Water 25 Gm/50 Ml Disp.Syrin) 0 gm IV X1 PRN; Protocol PRN Reason: Hypoglycemia Enoxaparin Sodium (Enoxaparin 40 Mg/0.4 Ml Syringe) 40 mg SC BID [facility] Last Admin: 06/03/20 08:42 Dose: 40 mg Documented by: Glucagon (Glucagon 1 Mg/Ml Syringe) 1 mg IM .X1 PRN PRN Reason: Hypoglycemia Guaifenesin (Guaifenesin 10 Ml Udc (200mg/10ml)) 10 ml GT Q4H [facility] Last Admin: 06/03/20 14:07 Dose: 10 ml Documented by: Sodium Chloride () 250 mls @ 15 mls/hr IV .[id number] PRN PRN Reason: Saline Flush Last Infusion: 06/02/20 23:29 Dose: Infused Documented by: Sodium Chloride () 250 mls @ 15 mls/hr IV .[id number] PRN PRN Reason: Additional IVPB Infusion Famotidine 20 mg/ Sodium (Chloride) 10 mls @ 300 mls/hr IV Q12 [facility] Last Infusion: 06/03/20 08:43 Dose: Infused Documented by: Fentanyl Citrate 1,000 mcg/ (Sodium Chloride) 100 mls @ 5 mls/hr CONT INF .Q20H [facility]; Protocol Last Titration: 06/03/20 16:00 Dose: 200 mcg/hr, 20 mls/hr Documented by: Norepinephrine Bitartrate 8 mg (/ Sodium Chloride) 250 mls @ 9.375 mls/hr CONT INF .[id number] [facility]; Protocol Last Admin: 06/03/20 12:59 Dose: 17 mcg/min, 31.9 mls/hr Documented by: Enteral Nutritional Formula (Vital Af 1.2 Rick Liquid) 1,000 mls @ 60 mls/hr GT .[id number] [facility] Last Admin: 06/03/20 03:34 Dose: 60 mls/hr Documented by: Piperacillin Sod/Tazobactam (Sod 3.375 gm/ Sodium Chloride) 50 mls @ 12.5 mls/hr IV Q8 [facility] Last Admin: 06/03/20 14:10 Dose: 12.5 mls/hr Documented by: Propofol (Diprivan) 1,000 mg in 100 mls @ 5.28 mls/hr CONT INF .Q12H [facility]; Protocol Last Titration: 06/03/20 16:00 Dose: 50 mcg/kg/min, 26.4 mls/hr Documented by: Vancomycin IV Pharmacy to Dose (1 ea/ Sodium Chloride) 500 mls @ 250 mls/hr IV X1 PRN; Protocol PRN Reason: Rx to Dose Vancomycin HCl 1,750 mg/ (Sodium Chloride) 535 mls @ 250 mls/hr IV Q12H [facility] Last Infusion: 06/03/20 08:30 Dose: Infused Documented by: Insulin Glargine (Insulin Glargine 100 Units/Ml Pen) 60 units SC BID [facility] Last Admin: 06/03/20 08:42 Dose: 60 u Documented by: Insulin Human Lispro (Insulin Lispro 100 Unit/Ml Insuln.Pen) 0 unit SC Q6H [facility]; Protocol Last Admin: 06/03/20 12:56 Dose: 6 u Documented by: Melatonin (Melatonin 3 Mg Tablet) 3 mg PO QHS PRN PRN PRN Reason: INSOMNIA Nystatin (Nystatin Powder 15gm Bottle) 1 applic TOPICAL BID [facility]; Protocol Last Admin: 06/03/20 10:49 Dose: 1 applic Documented by: Ondansetron HCl (Ondansetron 4 Mg/2 Ml Vial) 4 mg IV Q8H PRN PRN PRN Reason: NAUSEA/VOMITING Quetiapine Fumarate (Quetiapine 25 Mg Tablet) 50 mg GT BID [facility] Last Admin: 06/03/20 08:41 Dose: 50 mg Documented by: Sodium Chloride (0.9% Saline Lock 10 Ml Syringe) 10 - 40 ml IV UD PRN PRN Reason: SALINE FLUSH Last Admin: 06/01/20 08:47 Dose: 10 ml Documented by: STROKE Vital Signs/Narrative: Vital Signs Pulse Resp Pulse Ox 06/03/20 16:00 62 94 06/03/20 13:45 67 18 95 Medical Necessity - Tobacco Use Smoking Status: Former smoker Assessment/Plan All Active Problems (This Medical Record has been edited. Action required.) Pneumonia due to COVID-19 virus (Acute) Respiratory insufficiency (Acute) SARS (severe acute respiratory syndrome) (Acute) 1. Septic shock and acute hypoxic respiratory failure secondary to COVID-19 pneumonitis/hyponatremia/transaminitis/E. coli UTI/MRSA in sputum -She had to be intubated secondary to her her pneumonitis. -Continue with Decadron, she completed remdesivir -She is currently on pressor support secondary to the sepsis as well as the amount of propofol needed to keep her sedated -Sodium is stable around 140 -LFTs have normalized, potentially from the septic shock and combination of the remdesivir -Lasix discontinued, will monitor and can use if necessary -Continue with Zosyn for the UTI and vancomycin for the MRSA in sputum hopefully this will help in lowering her white count which have been climbing since 06/01/2020 2. Uncontrolled DM2/obesity -On admission her A1c was 10.8 -Continue with insulin, once she is alert and oriented and extubated can undergo education and teaching about her new diagnosis of diabetes -She will likely need to be started on Metformin, I would hold off on initiating insulin therapy as she is a new diabetic and does not take normal medications so a combination of insulin and Metformin immediately after surviving Covid may hinder compliance in the long run -We will continue to monitor glucose closely given the Decadron -BMI of 31, when she is alert and oriented discussed lifestyle medications 3. GERD -Stable -Continue with H2 june DVT: Lovenox Inpatient E&M: [id number] Subs Hosp L2
[2020-06-03 18:21] LABS: Bedside Glucose 381 mg/dL (70-110)
[2020-06-03] MEDS: Famotidine 200 MG/20 ML MDV 20 MG in 0.9% Normal Saline (Pres. free 8 ML 330 MG IV (20:19)
[2020-06-04] VITALS (47 sets, daily range): BP systolic 80–199; BP diastolic 37–86; PULSE 62–134; RESP 14–119; TEMP 36.5–37.6; O2SAT 76–98
[2020-06-04] MEDS: guaiFENesin 10 ML UDC (200MG/10ML) GT (02:15)
[2020-06-04] MEDS: Vital AF 1.2 Cal Liquid 1,000 ML 60 ML GT ×3 (02:20→19:51)
[2020-06-04 02:26] LABS: Bedside Glucose 247 mg/dL (70-110)
[2020-06-04] MEDS: Propofol 10MG/Ml 1,000 MG/100 ML Bottle 26.4 MG CONT INF ×2 (02:30→04:38)
[2020-06-04 03:31] LABS: Vancomycin, Trough Level 15.5 ug/mL (5.0-15.0)
--- NOTE | 2020-06-04 04:01 | PN_ITS ---
Subjective: The patient was seen and examined at the bedside this morning. Events from the last 24 hours have been reviewed. The patient is currently afebrile, hemodynamically stable and maintaining appropriate oxygen saturations on assist control mode of mechanical ventilation with an FiO2 requirement of 65% and PEEP of 10. The patient remains on Levophed at 7 mcg/min to maintain hemodynamic stability. She is currently documented to be overall net +8.8 L for the hospital admission. Objective: The patient's most recent lab work, culture data and imaging studies have all been personally reviewed. Coronavirus PCR was positive on May 22. Urine culture was positive for presumptive E. coli. Sputum culture was positive for MRSA. General: - - Remains intubated, sedated and mechanically ventilated. No ventilator to synchrony noted. HEENT: Atraumatic, PERRLA, Normocephalic Oral: No Gingival or Mucosal Lesions/ Ulcerations, - - Stable endotracheal and OG tubes Neck: Supple, No Nodes, Trachea Midline Lungs: No rhonchi, No wheeze, No rales, Diminished Cardiovascular: Regular rate, Regular Rhythm, Normal S1, Normal S2, No murmurs Abdomen: Bowel Sounds Present, Soft, Non Tender, Obese Extremities: No clubbing, No cyanosis, No edema Skin: No breakdown Musculoskeletal: No Muscle Wasting Lymphatic: No Cervical, Supraclavicular, or Inguinal Adenopathy Neurological: - - No focal neurological deficits. Remains sedated on the ventilator. Vital Signs Temp Pulse Resp BP Pulse Ox 98.3 F 72 16 126/57 H 92 06/04/20 03:00 06/04/20 03:06 06/04/20 03:00 06/04/20 03:00 06/04/20 03:00 Oxygen Flow Rate (L/min) 8 Oxygen Delivery Method Mechanical Ventilator Weight: 194 lb 0.108 oz Body Mass Index (BMI) 28.7 Finger Stick Blood Glucose 377 Intake and Output for Last 24 Hours 06/02/20 06/03/20 06/04/20 23:59 23:59 23:59 Intake Total 3311.28 / 3480.96 4131.94 / 4183.27 238.43 / 238.43 Output Total 3870 / 4020 3120 / 3120 250 / 250 Balance -558.72 / -539.04 1011.94 / 1063.27 -11.57 / -11.57 Labs (Last 48 Hours) 06/02/20 06/02/20 06/02/20 04:40 04:40 11:02 WBC 13.5 H RBC 4.69 Hgb 13.0 Hct 42.2 MCV 90.0 MCH 27.7 MCHC 30.8 L D RDW Std Deviation 44.2 H RDW Coeff of Osorio 13.3 Plt Count 313 MPV 10.3 Immature Gran % (Auto) 2.900 H Neut % (Auto) 75.6 H Lymph % (Auto) 14.0 L [place] % (Auto) 7.1 Eos % (Auto) 0.3 Baso % (Auto) 0.1 Absolute Neuts (auto) 10.2 H Absolute Lymphs (auto) 1.89 Nucleated RBC % 0 Sodium 142 Potassium 3.8 Chloride 107 Carbon Dioxide 30.0 Anion Gap 5 BUN 14 Creatinine 0.55 Estim Creat Clear Calc 105.22 Est GFR (MDRD) Af Amer 149 Est GFR (MDRD) Non-Af 123 BUN/Creatinine Ratio 25.5 H Glucose 290 H Calcium 8.1 L Phosphorus Magnesium Total Bilirubin 0.70 AST 21 ALT 28 Alkaline Phosphatase 122 H Total Protein 6.2 L Albumin 2.0 L Globulin 4.2 Albumin/Globulin Ratio 0.5 L Vancomycin Trough POC Glucose 244 H 06/02/20 06/02/20 06/03/20 17:14 20:53 00:13 WBC RBC Hgb Hct MCV MCH MCHC RDW Std Deviation RDW Coeff of Osorio Plt Count MPV Immature Gran % (Auto) Neut % (Auto) Lymph % (Auto) [place] % (Auto) Eos % (Auto) Baso % (Auto) Absolute Neuts (auto) Absolute Lymphs (auto) Nucleated RBC % Sodium Potassium Chloride Carbon Dioxide Anion Gap BUN Creatinine Estim Creat Clear Calc Est GFR (MDRD) Af Amer Est GFR (MDRD) Non-Af BUN/Creatinine Ratio Glucose Calcium Phosphorus Magnesium Total Bilirubin AST ALT Alkaline Phosphatase Total Protein Albumin Globulin Albumin/Globulin Ratio Vancomycin Trough POC Glucose 261 H 307 H 243 H 06/03/20 06/03/20 06/03/20 04:30 04:30 12:53 WBC 18.3 H RBC 4.90 Hgb 13.8 Hct 43.7 MCV 89.2 MCH 28.2 MCHC 31.6 L RDW Std Deviation 43.7 RDW Coeff of Osorio 13.3 Plt Count 348 MPV 9.9 Immature Gran % (Auto) 3.200 H Neut % (Auto) 74.8 H Lymph % (Auto) 15.9 L [place] % (Auto) 5.3 Eos % (Auto) 0.5 Baso % (Auto) 0.3 Absolute Neuts (auto) 13.6 H Absolute Lymphs (auto) 2.91 Nucleated RBC % 0 Sodium 137 Potassium 3.1 L Chloride 98 Carbon Dioxide 32.0 Anion Gap 7 BUN 13 Creatinine 0.46 L Estim Creat Clear Calc 125.81 Est GFR (MDRD) Af Amer 182 Est GFR (MDRD) Non-Af 151 BUN/Creatinine Ratio 28.3 H Glucose 287 H Calcium 8.2 L Phosphorus 3.4 Magnesium 1.4 L Total Bilirubin AST ALT Alkaline Phosphatase Total Protein Albumin Globulin Albumin/Globulin Ratio Vancomycin Trough POC Glucose 276 H 06/03/20 06/03/20 06/04/20 17:51 23:01 02:50 WBC RBC Hgb Hct MCV MCH MCHC RDW Std Deviation RDW Coeff of Osorio Plt Count MPV Immature Gran % (Auto) Neut % (Auto) Lymph % (Auto) [place] % (Auto) Eos % (Auto) Baso % (Auto) Absolute Neuts (auto) Absolute Lymphs (auto) Nucleated RBC % Sodium Potassium Chloride Carbon Dioxide Anion Gap BUN Creatinine Estim Creat Clear Calc Est GFR (MDRD) Af Amer Est GFR (MDRD) Non-Af BUN/Creatinine Ratio Glucose Calcium Phosphorus Magnesium Total Bilirubin AST ALT Alkaline Phosphatase Total Protein Albumin Globulin Albumin/Globulin Ratio Vancomycin Trough 15.5 H POC Glucose 381 H 247 H Microbiology 06/01/20 06:40 Sputum, Induced/Lukens Gram Stain - Final 06/01/20 06:40 Sputum, Induced/Lukens Respiratory Culture - Final Meth. resistant Staph. aureus Clinical Impression(s) from Imaging Studies Chest X-Ray 05/26/20 03:41 IMPRESSION: Multifocal pneumonia to include viral pneumonia. Electronically Signed: Forrest Cee MD at 4:28 EST , Service support , Chest CTA 05/26/20 04:23 IMPRESSION: No pulmonary embolus or thoracic aortic dissection. Diffuse groundglass opacities compatible with multifocal pneumonia very suggestive of viral pneumonia. Multiple small mediastinal lymph nodes. Electronically Signed: Forrest Cee MD at 5:18 EST , Service support , Chest X-Ray 05/28/20 04:38 IMPRESSION: GA confluent airspace disease likely pneumonia multilobular and bilateral. Aeration has worsened. Electronically Signed: Nighat Neal MD at 5:48 EST , Service support , Chest X-Ray 05/28/20 19:20 IMPRESSION: 1. Tubes and catheters as described. 2. Bilateral lower lobe pulmonary infiltrates unchanged from prior exam. Electronically Signed: Xavier [place] DO at 19:57 EST Tel [phone], Service support , KUB X-Ray 05/28/20 19:20 IMPRESSION: 1. OG tube as described. 2. No acute intra-abdominal process. 3. Persistent bibasilar infiltrates. Electronically Signed: Xavier [place] DO at 19:52 EST Tel [phone], Service support , Chest X-Ray 05/31/20 08:37 IMPRESSION: All the support tubes are in good position. Residual bilateral pulmonary infiltrates although there has been a mild degree of improvement as compared to prior study. Electronically Signed: Mauricio Sifuentes, at 9:14 EST , Service support , Chest X-Ray 05/31/20 19:30 IMPRESSION: Endotracheal tube at the right main bronchus. Worsening bilateral edema or pneumonia. Electronically Signed: Johny Calderon MD at 21:23 EST , Service support , ADDENDUM: 12/21/20 2138 IMPRESSION: Endotracheal tube at the right main bronchus. Worsening bilateral edema or pneumonia. N.B. : Tina Hicks RN , RN, confirmed on 05/31/2020 21:31:35 (ET) that the healthcare facility has received the radiology report. Electronically Signed: Johny Calderon MD at 21:23 EST , Service support , KUB X-Ray 05/31/20 20:40 IMPRESSION: Gastric tube with tip in the body. Electronically Signed: Verona Esparza, at 21:13 EST Tel , Service support , Medical Necessity - Tobacco Use Smoking Status: Former smoker Assessment/Plan All Active Problems (This Medical Record has been edited. Action required.) Pneumonia due to COVID-19 virus (Acute) Respiratory insufficiency (Acute) SARS (severe acute respiratory syndrome) (Acute) RECOMMENDATIONS: 1. Continue to wean FiO2 and PEEP to maintain oxygen saturations at or above 90%. 2. Wean Levophed to maintain a mean arterial pressure at or above 65 mmHg. 3. Continue Decadron to complete treatment course. 4. Continue antimicrobials as ordered. 5. Continue Lovenox as ordered. 6. Continue Lantus and sliding scale insulin coverage. 7. Continue tube feeds as tolerated. IMPRESSIONS: 1. Acute hypoxemic respiratory failure secondary to COVID-19 pneumonia The patient continued to decompensate from a respiratory perspective following admission, eventually requiring ICU transfer and subsequent intubation on May 28. The patient has completed a treatment course of remdesivir and will remain on Decadron with plans to complete a 10-day treatment course. Given staph aureus identified on sputum culture, antimicrobials will be continued. Continue to wean FiO2 and PEEP to maintain oxygen saturations at or above 90%. Continue tube feeds as tolerated. 2. Septic shock Continue current supportive measures including vasopressor support to maintain a mean arterial pressure at or above 65 mmHg. Continue antimicrobials per ID recommendations. 3. Acute kidney injury Improved. Likely prerenal in etiology with component of ischemic ATN in the setting of #2. Continue current supportive measures including vasopressor support to maintain hemodynamic stability. Continue to monitor urine output. No current indication for renal replacement therapy. 4. Poorly controlled diabetes mellitus Continue Lantus and sliding scale insulin coverage. 5. Obesity/GERD Complicates care, management, recovery and prognosis. Physical therapy to work with the patient once respiratory status has improved. TIME: 33 minutes of critical care time, independent of procedures, was spent addressing the patient's acute hypoxemic respiratory failure, COVID-19 pneumonia, septic shock, acute kidney injury, diabetes mellitus, review of all data and collaboration with the care team. [phone]) [phone] [id number] Critical care first hour
[2020-06-04 04:38] LABS: Anion Gap 4 (5-15); BUN 18 mg/dL (7-18); BUN/Creat Ratio 43.7 RATIO (10-20); Calcium,Total 8.1 mg/dL (8.5-10.1); Chloride 104 mmol/L (98-107); Creatinine, Serum 0.41 mg/dL (0.55-1.02); EST Glomerular Filtration Rate 171 mL/min (>60); Est Glom Filt Rate - Afr Amer 207 mL/min (>60); Estimated Creatinine Clearance 141.15 ml/min; Glucose 193 mg/dL (74-106); Magnesium 2.3 mg/dL (1.6-2.6); Phosphorus 3.4 mg/dL (2.5-4.9); Potassium 3.8 mmol/L (3.5-5.1); Sodium Level 143 mmol/L (136-145)
[2020-06-04 04:48] LABS: Absolute Lymphocyte Count 2.55 X10^3/uL (0.83-4.51); Absolute Neutrophil Count 13.5 X10^3/uL (2.0-7.7); Basophil# 0.03 X10^3/uL; Basophil% 0.2 % (0-1); Eosinophil# 0.06 X10^3/uL; Eosinophils% 0.3 % (0-5); Hematocrit 39.9 % (37-47); Hemoglobin 12.4 g/dL (12.0-15.0); Lymphocyte # 2.55 X10^3/ul (4.0); Lymphocyte % 14.4 % (19-41); Mean Corp Hgb Conc 31.1 g/dL (32-36); Mean Corpuscular Hgb 28.1 pg (27.0-32.0); Mean Corpuscular Volume 90.5 fL (81-99); Mean Platelet Vol. 10.1 fl (6.2-12.0); Monocyte# 0.89 X10^3/uL; NRBC Flagged by Analyzer 0.1 % (0-5); Neutrophil # 13.53 X10^3/uL (2.7-7.7); Neutrophil % 76.8 % (47-70); Platelet Count 307 K/mm3 (150-450); RBC Distribution Width CV 13.3 % (11.6-14.6); RBC Distribution Width SD 43.9 fl (35.1-43.9); Red Blood Count 4.41 M/mm3 (4.2-5.4); White Blood Count 17.7 K/mm3 (4.4-11.0)
--- NOTE | 2020-06-04 04:52 | PCM.RX.CS ---
Consult Pharmacy has been consulted to manage selected antiobiotic: Vancomycin Type of Consult: Follow-up Suspected Infection: Pneumonia Prior Doses of Antibiotics Received/Current Regimen: Medications Vancomycin HCl 2,000 mg/ (Sodium Chloride) 540 mls @ 250 mls/hr IV Q12H OLLIE Vancomycin HCl 1,750 mg/ (Sodium Chloride) 535 mls @ 250 mls/hr IV Q12H OLLIE Stop: 06/04/20 06:35 Last Admin: 06/04/20 04:25 Dose: 250 mls/hr Labs: Sodium 143 mmol/L (136-145) 06/04/20 04:15 Potassium 3.8 mmol/L (3.5-5.1) 06/04/20 04:15 Chloride 104 mmol/L (98-107) 06/04/20 04:15 Carbon Dioxide 35.0 mmol/L (21.0-32.0) H 06/04/20 04:15 Anion Gap 4 (5-15) L 06/04/20 04:15 BUN 18 mg/dL (7-18) 06/04/20 04:15 Creatinine 0.41 mg/dL (0.55-1.02) L 06/04/20 04:15 Est GFR (MDRD) Af Amer 207 mL/min (>60) 06/04/20 04:15 Est GFR (MDRD) Non-Af 171 mL/min (>60) 06/04/20 04:15 BUN/Creatinine Ratio 43.7 RATIO (10-20) H 06/04/20 04:15 Glucose 193 mg/dL (74-106) H 06/04/20 04:15 Vancomycin Trough 15.5 ug/mL (5.0-15.0) H 06/04/20 02:50 Microbiology: Microbiology 06/01/20 06:40 Sputum, Induced/Lukens Gram Stain - Final 06/01/20 06:40 Sputum, Induced/Lukens Respiratory Culture - Final Meth. resistant Staph. aureus 05/28/20 21:15 Sputum, Induced/Lukens Gram Stain - Final 05/28/20 21:15 Sputum, Induced/Lukens Respiratory Culture - Final 05/29/20 11:00 Urine Catheter - Cuellar Urine Culture - Final Presumptive E. coli 05/26/20 04:05 Blood Culture (Wb) - Right Hand Blood Culture - Final No growth in 5 days. 05/26/20 03:48 Blood Culture (Wb) - Anticubital Right Blood Culture - Final No growth in 5 days. Weight used for dosin kg Estimated Creatinine Clearance: 126 Goal Trough: 15-20 mcg/mL Pharmacy Plan for Drug Dosing: Vancomycin trough level was 15.5, at the low end of target range. This was also just a 7.2hr level, and pt's CrCl has been improving. So the dose will be increased to 2000mg q12h. Another trough will be drawn prior to 4th dose of this new regimen. Pharmacy Service will continue to monitor and adjust dosing as required. Follow-Up Labs: Trough Vancomycin Labs to be done on [date and time ordered]: 06/06/20 @1251
[2020-06-04] MEDS: Insulin Lispro 100 UNIT/ML INSULN.PEN SC ×4 (05:21→23:31)
[2020-06-04 05:25] LABS: Bedside Glucose 237 mg/dL (70-110)
[2020-06-04] MEDS: TITRATION PARAMETER CHANGE 1 EACH IV ×2 (06:11→10:57)
--- NOTE | 2020-06-04 06:50 | PCM.PN.HOSP ---
Patient Problems: Active and Suspected Problems (This Medical Record has been edited. Action required.) Pneumonia due to COVID-19 virus (Acute) Respiratory insufficiency (Acute) SARS (severe acute respiratory syndrome) (Acute) Subjective: Patient overnight with increased tube feed residuals with hold on tube feeds until approximately 2M with then restart with ongoing elevated blood sugars. Patient's oxygenation remains the same with 10 of PEEP and 65% FiO2. Patient this morning alert and able to have some interaction, blinking and shaking her head and answer with no acute complaints at this time. Patient has remained afebrile denies any nausea, abdominal pain, chest pain. Objective: Physical Examination: General: awake, alert, answering some questions, blinking eyes and shaking head for response given intubated status, remains cooperative, seated upright in the ICU bed, stated, fatigued appearing otherwise no acute distress. Skin: normal color, turgor, no icterus, cyanosis. HEENT: AT/NC, EOMI, PERRLA, moderately dry MM, intubated. Lungs: Intubated, diminished breath sounds, greater bases, awake and answering questions with gestures as noted above, no rales, ronchi or wheezing. Heart: Currently regular rate and rhythm; no gallop, rub audible. Abdomen: soft, obese, NTTP, ND, normal BS. Extremities: no cyanosis or clubbing, mild ankle nonpitting edema. Neurological: patient awake, alert, oriented as noted; cognitive function improved but not baseline intact; pupils equally reactive to light and accomodation; cranial nerves II-XII grossly normal, moving all 4 extremities, no focal deficits, strength severely globally decreased secondary to acute presentation and intubated status. Psychiatric: affect appears flat, fatigued, no acute evidence of depressive or anxiety feelings. Vitals/I&O's: Vital Signs Temp Pulse Resp BP Pulse Ox 98.9 F 91 20 H 108/48 L 92 06/04/20 06:00 06/04/20 06:30 06/04/20 06:30 06/04/20 06:00 06/04/20 06:30 Oxygen Flow Rate (L/min) 8 Oxygen Delivery Method Mechanical Ventilator Weight: 188 lb 7.924 oz Body Mass Index (BMI) 28.7 Finger Stick Blood Glucose 377 Intake and Output for Last 24 Hours 06/02/20 06/03/20 06/04/20 23:59 23:59 23:59 Intake Total 3311.28 / 3480.96 4131.94 / 4183.27 820.13 / 820.13 Output Total 3870 / 4020 3120 / 3120 400 / 400 Balance -558.72 / -539.04 1011.94 / 1063.27 420.13 / 420.13 Microbiology Past 72 Hours 06/01/20 06:40 Sputum, Induced/Lukens Gram Stain - Final 06/01/20 06:40 Sputum, Induced/Lukens Respiratory Culture - Final Meth. resistant Staph. aureus Laboratory Results 06/03/20 12:53: POC Glucose 276 H 06/03/20 17:51: POC Glucose 381 H 06/03/20 23:01: POC Glucose 247 H 06/04/20 02:50: Vancomycin Trough 15.5 H 06/04/20 04:15: WBC 17.7 H, RBC 4.41, Hgb 12.4, Hct 39.9, MCV 90.5, MCH 28.1, MCHC 31.1 L, RDW Std Deviation 43.9, RDW Coeff of Osorio 13.3, Plt Count 307, MPV 10.1, Immature Gran % (Auto) 3.300 H, Neut % (Auto) 76.8 H, Lymph % (Auto) 14.4 L, [place] % (Auto) 5.0, Eos % (Auto) 0.3, Baso % (Auto) 0.2, Absolute Neuts (auto) 13.5 H, Absolute Lymphs (auto) 2.55, Nucleated RBC % 0.1 06/04/20 04:15: Sodium 143, Potassium 3.8, Chloride 104, Carbon Dioxide 35.0 H, Anion Gap 4 L, BUN 18, Creatinine 0.41 L, Estim Creat Clear Calc 141.15, Est GFR (MDRD) Af Amer 207, Est GFR (MDRD) Non-Af 171, BUN/Creatinine Ratio 43.7 H, Glucose 193 H, Calcium 8.1 L, Phosphorus 3.4, Magnesium 2.3 06/04/20 05:20: POC Glucose 237 H Current Medications Albuterol Sulfate (Albuterol Ih 8.5 Gm (Proair) Inhaler (200 Puffs)) 2 puff INHALATION Q4H PRN PRN PRN Reason: SOB/WHEEZING Albuterol Sulfate (Albuterol 2.5 Mg/3 Ml Vial.Neb.) 2.5 mg INHALATION Q2H PRN PRN PRN Reason: dyspnea, wheezing Last Admin: 05/31/20 07:45 Dose: 2.5 mg Documented by: Calamine/Phenol (Menthol/Lanolin/Calamine/Znox 113 Gm Tube) 1 applic TOPICAL BID OLLIE; Protocol Last Admin: 06/03/20 20:20 Dose: 1 applic Documented by: Chlorhexidine Gluconate (Chlorhexidine 15 Ml) 15 ml PO BID [facility] Last Admin: 06/03/20 20:19 Dose: 15 ml Documented by: Dexamethasone Sodium Phosphate (Dexamethasone 10 Mg/Ml Vial) 6 mg IV DAILY [facility] Stop: 06/04/20 10:01 Last Admin: 06/03/20 08:39 Dose: 6 mg Documented by: Dextrose (Dextrose 50%-Water 25 Gm/50 Ml Disp.Syrin) 0 gm IV X1 PRN; Protocol PRN Reason: Hypoglycemia Enoxaparin Sodium (Enoxaparin 40 Mg/0.4 Ml Syringe) 40 mg SC BID [facility] Last Admin: 06/03/20 20:19 Dose: 40 mg Documented by: Glucagon (Glucagon 1 Mg/Ml Syringe) 1 mg IM .X1 PRN PRN Reason: Hypoglycemia Sodium Chloride () 250 mls @ 15 mls/hr IV .[id number] PRN PRN Reason: Saline Flush Last Infusion: 06/02/20 23:29 Dose: Infused Documented by: Sodium Chloride () 250 mls @ 15 mls/hr IV .[id number] PRN PRN Reason: Additional IVPB Infusion Famotidine 20 mg/ Sodium (Chloride) 10 mls @ 300 mls/hr IV Q12 [facility] Last Infusion: 06/03/20 21:05 Dose: Infused Documented by: Fentanyl Citrate 1,000 mcg/ (Sodium Chloride) 100 mls @ 5 mls/hr CONT INF .Q20H [facility]; Protocol Last Titration: 06/04/20 06:00 Dose: 200 mcg/hr, 20 mls/hr Documented by: Norepinephrine Bitartrate 8 mg (/ Sodium Chloride) 250 mls @ 9.375 mls/hr CONT INF .[id number] [facility]; Protocol Last Titration: 06/04/20 06:00 Dose: 7 mcg/min, 13.1 mls/hr Documented by: Enteral Nutritional Formula (Vital Af 1.2 Rick Liquid) 1,000 mls @ 60 mls/hr GT .[id number] [facility] Last Admin: 06/04/20 02:20 Dose: 60 mls/hr Documented by: Piperacillin Sod/Tazobactam (Sod 3.375 gm/ Sodium Chloride) 50 mls @ 12.5 mls/hr IV Q8 [facility] Last Infusion: 06/04/20 02:53 Dose: Infused Documented by: Propofol (Diprivan) 1,000 mg in 100 mls @ 5.13 mls/hr CONT INF .Q12H [facility]; Protocol Last Titration: 06/04/20 06:00 Dose: 50 mcg/kg/min, 25.7 mls/hr Documented by: Vancomycin IV Pharmacy to Dose (1 ea/ Sodium Chloride) 500 mls @ 250 mls/hr IV X1 PRN; Protocol PRN Reason: Rx to Dose Vancomycin HCl 2,000 mg/ (Sodium Chloride) 540 mls @ 250 mls/hr IV Q12H [facility] Insulin Glargine (Insulin Glargine 100 Units/Ml Pen) 60 units SC BID [facility] Last Admin: 06/03/20 23:02 Dose: 60 u Documented by: Insulin Human Lispro (Insulin Lispro 100 Unit/Ml Insuln.Pen) 0 unit SC Q6H [facility]; Protocol Last Admin: 06/04/20 05:21 Dose: 4 u Documented by: Melatonin (Melatonin 3 Mg Tablet) 3 mg PO QHS PRN PRN PRN Reason: INSOMNIA Nystatin (Nystatin Powder 15gm Bottle) 1 applic TOPICAL BID [facility]; Protocol Last Admin: 06/03/20 20:20 Dose: 1 applic Documented by: Ondansetron HCl (Ondansetron 4 Mg/2 Ml Vial) 4 mg IV Q8H PRN PRN PRN Reason: NAUSEA/VOMITING Quetiapine Fumarate (Quetiapine 25 Mg Tablet) 50 mg GT BID [facility] Last Admin: 06/03/20 20:19 Dose: 50 mg Documented by: Sodium Chloride (0.9% Saline Lock 10 Ml Syringe) 10 - 40 ml IV UD PRN PRN Reason: SALINE FLUSH Last Admin: 06/01/20 08:47 Dose: 10 ml Documented by: STROKE Vital Signs/Narrative: Vital Signs Temp Pulse Resp BP Pulse Ox 06/04/20 06:30 91 20 H 92 06/04/20 06:00 98.9 F 88 20 H 108/48 L 92 06/04/20 05:00 98.7 F 83 19 H 107/50 L 91 06/04/20 04:30 92 17 82 06/04/20 04:00 98.2 F 72 16 109/57 L 93 06/04/20 03:06 72 06/04/20 03:00 98.3 F 75 16 126/57 H 92 Medical Necessity - Tobacco Use Smoking Status: Former smoker Assessment/Plan All Active Problems (This Medical Record has been edited. Action required.) Pneumonia due to COVID-19 virus (Acute) Respiratory insufficiency (Acute) SARS (severe acute respiratory syndrome) (Acute) The patient is a 55 y/o F w/ PMHx Diabetes mellitus type II poorly controlled, GERD, Obesity, Former Tobacco use who presented to the [facility] ED on 05/26/20 With recent positive Covid test on 05/22/2020 with fatigue, loss of taste, difficulty maintaining oral intake with cold-like symptoms progressively worsening. 1. Acute septic shock secondary to acute hypoxic respiratory failure secondary to acute COVID-19 pneumonia and suspected HCAP MRSA and E. Coli Complicated UTI: Patient initially admitted to medical surgical floor eventually transition to PCU and ICU with eventual intubation on 05/28/2020, CT chest with no evidence of pulmonary emboli maintained on Lovenox 40 mg twice daily, completed course of remdesivir, continue Decadron to complete 10-day course, sputum culture with staph aureus therefore maintained on IV vancomycin given MRSA pneumonia and Zosyn although suspect given susceptibilities may consider de-escalation to Rocephin therapy and continued vancomycin but will defer to infectious disease, continue intubated, sedated status, tube feeds ongoing, increase Lantus secondary to acute presentation and ongoing steroid usage as noted with every 6 hours insulin sliding scale, septic shock with vasopressor support as needed to maintain MAP greater than 65 mmHg, infectious disease following. 2. Acute kidney injury: Secondary to #1. Improved, creatinine increased up to 1.19 with baseline 0.4-0.5, complicated presentation given Covid status concurrently thus deferring aggressive hydration as noted #1, 06/04/2020 BUN/creatinine 18/0.41. Continue to trend. 3. Diabetes mellitus type II, poorly controlled: Patient with poorly controlled diabetes, exacerbated by Decadron usage, continue Lantus currently 60 units subcu twice daily with insulin sliding scale every 6 hours high-dose coverage, alter long-acting as needed, continue tube feeds with alterations as noted given high residuals. 4. GERD: Continue famotidine IV. 5. DVT prophylaxis: SCDs, Lovenox. Inpatient E&M: [id number] [facility] H[facility] L3
[2020-06-04] MEDS: Propofol 10MG/Ml 1,000 MG/100 ML Bottle 25.7 MG CONT INF (08:35)
[2020-06-04] MEDS: Enoxaparin 40 MG/0.4 ML Syringe SC ×2 (08:40→19:52)
[2020-06-04] MEDS: dexAMETHasone 10 MG/ML Vial 6 MG IV (08:41)
[2020-06-04] MEDS: Famotidine 200 MG/20 ML MDV 20 MG in 0.9% Normal Saline (Pres. free 8 ML 330 MG IV ×2 (08:41→19:55)
[2020-06-04] MEDS: QUEtiapine 25 MG Tablet 50 MG GT ×2 (08:42→09:20)
[2020-06-04] MEDS: Chlorhexidine 15 ML PO ×2 (09:00→19:54)
[2020-06-04] MEDS: Nystatin Powder 15gm Bottle 1 APPLIC TOPICAL ×2 (09:00→19:54)
[2020-06-04] MEDS: Menthol/Lanolin/Calamine/Znox 113 GM Tube 1 APPLIC TOPICAL ×2 (09:00→19:54)
[2020-06-04] MEDS: Propofol 10MG/Ml 1,000 MG/100 ML Bottle 28.2 MG CONT INF ×5 (12:12→23:43)
[2020-06-04 12:51] LABS: Bedside Glucose 240 mg/dL (70-110)
[2020-06-04 18:30] LABS: Bedside Glucose 274 mg/dL (70-110)
[2020-06-04] MEDS: QUEtiapine 100 MG Tablet GT (19:52)
[2020-06-05] VITALS (49 sets, daily range): BP systolic 82–168; BP diastolic 17–69; PULSE 56–92; RESP 14–29; TEMP 37–38.3; O2SAT 88–98
[2020-06-05 01:15] LABS: Bedside Glucose 181 mg/dL (70-110)
[2020-06-05] MEDS: Propofol 10MG/Ml 1,000 MG/100 ML Bottle 28.2 MG CONT INF ×2 (02:00→03:53)
[2020-06-05 04:23] LABS: Absolute Neutrophil Count 12.2 X10^3/uL (2.0-7.7); Basophil# 0.05 X10^3/uL; Basophil% 0.3 % (0-1); Eosinophils% 0.6 % (0-5); Hematocrit 42.5 % (37-47); Hemoglobin 11.8 g/dL (12.0-15.0); Lymphocyte % 19.3 % (19-41); Mean Corp Hgb Conc 27.8 g/dL (32-36); Mean Corpuscular Hgb 29.4 pg (27.0-32.0); Mean Platelet Vol. 10.4 fl (6.2-12.0); Monocyte# 0.88 X10^3/uL; Monocyte% 5.2 % (0-10); NRBC Flagged by Analyzer 0.1 % (0-5); Neutrophil # 12.21 X10^3/uL (2.7-7.7); Neutrophil % 71.6 % (47-70); Platelet Count 219 K/mm3 (150-450); RBC Distribution Width CV 13.9 % (11.6-14.6); RBC Distribution Width SD 53.6 fl (35.1-43.9); Red Blood Count 4.01 M/mm3 (4.2-5.4); White Blood Count 17.1 K/mm3 (4.4-11.0)
[2020-06-05] MEDS: TITRATION PARAMETER CHANGE 1 EACH IV (04:24)
[2020-06-05 04:39] LABS: ALB/GLOB Ratio 0.4 RATIO (0.9-2.4); AST(SGOT) 78 U/L (15-37); Alanine Aminotransfer ALT/SGPT 76 U/L (13-56); Albumin, Serum 1.8 g/dL (3.2-5.0); Alkaline Phosphatase 110 U/L (45-117); Anion Gap 5 (5-15); BUN 16 mg/dL (7-18); Calcium,Total 8.2 mg/dL (8.5-10.1); Chloride 103 mmol/L (98-107); Creatinine, Serum 0.36 mg/dL (0.55-1.02); EST Glomerular Filtration Rate 197 mL/min (>60); Est Glom Filt Rate - Afr Amer 238 mL/min (>60); Estimated Creatinine Clearance 160.75 ml/min; Globulin 4.2 g/dL (2.2-4.2); Glucose 69 mg/dL (74-106); Potassium 3.1 mmol/L (3.5-5.1); Sodium Level 143 mmol/L (136-145)
[2020-06-05 05:31] LABS: Bedside Glucose 88 mg/dL (70-110)
--- NOTE | 2020-06-05 05:33 | PN_ITS ---
Subjective: The patient was seen and examined at the bedside this morning. Events from the last 24 hours have been reviewed. The patient currently has a low-grade fever and remains on Levophed to maintain hemodynamic stability. The patient is currently documented to be overall net +13 L for the hospital admission. The patient remains on assist control mode of mechanical ventilation with an FiO2 requirement of 55% and PEEP of 10. She remains heavily sedated on propofol and fentanyl but continues to have intermittent coughing spells. Potassium is low this morning at 3.1. Objective: The patient's most recent lab work, culture data and imaging studies have all been personally reviewed. Coronavirus PCR was positive on May 22. Urine culture was positive for presumptive E. coli. Sputum culture was positive for MRSA. General: - - Remains intubated, sedated and mechanically ventilated. HEENT: Atraumatic, PERRLA, Normocephalic Oral: No Gingival or Mucosal Lesions/ Ulcerations, - - Endotracheal and OG tubes remain in place Neck: Supple, No Nodes, Trachea Midline Lungs: No rhonchi, No wheeze, No rales, Diminished Cardiovascular: Regular rate, Regular Rhythm Abdomen: Bowel Sounds Present, Soft, Non Tender Extremities: No clubbing, No cyanosis, No edema Skin: No breakdown Musculoskeletal: No Muscle Wasting Lymphatic: No Cervical, Supraclavicular, or Inguinal Adenopathy Neurological: - - No focal neurological deficits. Currently sedated on the ventilator. Vital Signs Temp Pulse Resp BP Pulse Ox 100.2 F H 75 19 H 120/47 L 92 06/05/20 05:00 06/05/20 05:00 06/05/20 05:00 06/05/20 05:00 06/05/20 05:00 Oxygen Flow Rate (L/min) 8 Oxygen Delivery Method Mechanical Ventilator Weight: 195 lb 8.8 oz Body Mass Index (BMI) 28.7 Finger Stick Blood Glucose 377 Intake and Output for Last 24 Hours 06/03/20 06/04/20 06/05/20 23:59 23:59 23:59 Intake Total 4131.94 / 4183.27 5031.14 / 5031.14 1200.35 / 1200.35 Output Total 3120 / 3120 1745 / 1745 360 / 360 Balance 1011.94 / 1063.27 3286.14 / 3286.14 840.35 / 840.35 Labs (Last 48 Hours) 06/03/20 06/03/20 06/03/20 12:53 17:51 23:01 WBC RBC Hgb Hct MCV MCH MCHC RDW Std Deviation RDW Coeff of Osorio Plt Count MPV Immature Gran % (Auto) Neut % (Auto) Lymph % (Auto) [place] % (Auto) Eos % (Auto) Baso % (Auto) Absolute Neuts (auto) Absolute Lymphs (auto) Nucleated RBC % Sodium Potassium Chloride Carbon Dioxide Anion Gap BUN Creatinine Estim Creat Clear Calc Est GFR (MDRD) Af Amer Est GFR (MDRD) Non-Af BUN/Creatinine Ratio Glucose Calcium Phosphorus Magnesium Total Bilirubin AST ALT Alkaline Phosphatase Total Protein Albumin Globulin Albumin/Globulin Ratio Vancomycin Trough POC Glucose 276 H 381 H 247 H 06/04/20 06/04/20 06/04/20 02:50 04:15 04:15 WBC 17.7 H RBC 4.41 Hgb 12.4 Hct 39.9 MCV 90.5 MCH 28.1 MCHC 31.1 L RDW Std Deviation 43.9 RDW Coeff of Osorio 13.3 Plt Count 307 MPV 10.1 Immature Gran % (Auto) 3.300 H Neut % (Auto) 76.8 H Lymph % (Auto) 14.4 L [place] % (Auto) 5.0 Eos % (Auto) 0.3 Baso % (Auto) 0.2 Absolute Neuts (auto) 13.5 H Absolute Lymphs (auto) 2.55 Nucleated RBC % 0.1 Sodium 143 Potassium 3.8 Chloride 104 Carbon Dioxide 35.0 H Anion Gap 4 L BUN 18 Creatinine 0.41 L Estim Creat Clear Calc 141.15 Est GFR (MDRD) Af Amer 207 Est GFR (MDRD) Non-Af 171 BUN/Creatinine Ratio 43.7 H Glucose 193 H Calcium 8.1 L Phosphorus 3.4 Magnesium 2.3 Total Bilirubin AST ALT Alkaline Phosphatase Total Protein Albumin Globulin Albumin/Globulin Ratio Vancomycin Trough 15.5 H POC Glucose 06/04/20 06/04/20 06/04/20 05:20 12:43 17:58 WBC RBC Hgb Hct MCV MCH MCHC RDW Std Deviation RDW Coeff of Osorio Plt Count MPV Immature Gran % (Auto) Neut % (Auto) Lymph % (Auto) [place] % (Auto) Eos % (Auto) Baso % (Auto) Absolute Neuts (auto) Absolute Lymphs (auto) Nucleated RBC % Sodium Potassium Chloride Carbon Dioxide Anion Gap BUN Creatinine Estim Creat Clear Calc Est GFR (MDRD) Af Amer Est GFR (MDRD) Non-Af BUN/Creatinine Ratio Glucose Calcium Phosphorus Magnesium Total Bilirubin AST ALT Alkaline Phosphatase Total Protein Albumin Globulin Albumin/Globulin Ratio Vancomycin Trough POC Glucose 237 H 240 H 274 H 06/04/20 06/05/20 06/05/20 23:15 04:10 04:10 WBC 17.1 H RBC 4.01 L Hgb 11.8 L Hct 42.5 MCV 106.0 H D MCH 29.4 MCHC 27.8 L D RDW Std Deviation 53.6 H RDW Coeff of Osorio 13.9 Plt Count 219 MPV 10.4 Immature Gran % (Auto) 3.000 H Neut % (Auto) 71.6 H Lymph % (Auto) 19.3 [place] % (Auto) 5.2 Eos % (Auto) 0.6 Baso % (Auto) 0.3 Absolute Neuts (auto) 12.2 H Absolute Lymphs (auto) 3.30 Nucleated RBC % 0.1 Sodium 143 Potassium 3.1 L Chloride 103 Carbon Dioxide 35.0 H Anion Gap 5 BUN 16 Creatinine 0.36 L Estim Creat Clear Calc 160.75 Est GFR (MDRD) Af Amer 238 Est GFR (MDRD) Non-Af 197 BUN/Creatinine Ratio 44.0 H Glucose 69 L Calcium 8.2 L Phosphorus Magnesium Total Bilirubin 0.40 AST 78 H ALT 76 H Alkaline Phosphatase 110 Total Protein 6.0 L Albumin 1.8 L Globulin 4.2 Albumin/Globulin Ratio 0.4 L Vancomycin Trough POC Glucose 181 H 06/05/20 05:16 WBC RBC Hgb Hct MCV MCH MCHC RDW Std Deviation RDW Coeff of Osorio Plt Count MPV Immature Gran % (Auto) Neut % (Auto) Lymph % (Auto) [place] % (Auto) Eos % (Auto) Baso % (Auto) Absolute Neuts (auto) Absolute Lymphs (auto) Nucleated RBC % Sodium Potassium Chloride Carbon Dioxide Anion Gap BUN Creatinine Estim Creat Clear Calc Est GFR (MDRD) Af Amer Est GFR (MDRD) Non-Af BUN/Creatinine Ratio Glucose Calcium Phosphorus Magnesium Total Bilirubin AST ALT Alkaline Phosphatase Total Protein Albumin Globulin Albumin/Globulin Ratio Vancomycin Trough POC Glucose 88 Microbiology 06/01/20 06:40 Sputum, Induced/Lukens Gram Stain - Final 06/01/20 06:40 Sputum, Induced/Lukens Respiratory Culture - Final Meth. resistant Staph. aureus Clinical Impression(s) from Imaging Studies Chest X-Ray 05/26/20 03:41 IMPRESSION: Multifocal pneumonia to include viral pneumonia. Electronically Signed: Forrest Cee MD at 4:28 EST , Service support , Chest CTA 05/26/20 04:23 IMPRESSION: No pulmonary embolus or thoracic aortic dissection. Diffuse groundglass opacities compatible with multifocal pneumonia very suggestive of viral pneumonia. Multiple small mediastinal lymph nodes. Electronically Signed: Forrest Cee MD at 5:18 EST , Service support , Chest X-Ray 05/28/20 04:38 IMPRESSION: GA confluent airspace disease likely pneumonia multilobular and bilateral. Aeration has worsened. Electronically Signed: Nighat Neal MD at 5:48 EST , Service support , Chest X-Ray 05/28/20 19:20 IMPRESSION: 1. Tubes and catheters as described. 2. Bilateral lower lobe pulmonary infiltrates unchanged from prior exam. Electronically Signed: Xavier Beach DO at 19:57 EST Tel [phone], Service support , KUB X-Ray 05/28/20 19:20 IMPRESSION: 1. OG tube as described. 2. No acute intra-abdominal process. 3. Persistent bibasilar infiltrates. Electronically Signed: Xavier Beach DO at 19:52 EST Tel [phone], Service support , Chest X-Ray 05/31/20 08:37 IMPRESSION: All the support tubes are in good position. Residual bilateral pulmonary infiltrates although there has been a mild degree of improvement as compared to prior study. Electronically Signed: Mauricio Morgancorrie, at 9:14 EST , Service support , Chest X-Ray 05/31/20 19:30 IMPRESSION: Endotracheal tube at the right main bronchus. Worsening bilateral edema or pneumonia. Electronically Signed: Johny Calderon MD at 21:23 EST , Service support , ADDENDUM: 05/31/20 2138 IMPRESSION: Endotracheal tube at the right main bronchus. Worsening bilateral edema or pneumonia. N.B. : Tina Hicks RN , RN, confirmed on 05/31/2020 21:31:35 (ET) that the healthcare facility has received the radiology report. Electronically Signed: Johny Calderon MD at 21:23 EST , Service support , KUB X-Ray 05/31/20 20:40 IMPRESSION: Gastric tube with tip in the body. Electronically Signed: Verona Esparza, at 21:13 EST Tel , Service support , Medical Necessity - Tobacco Use Smoking Status: Former smoker Assessment/Plan All Active Problems (This Medical Record has been edited. Action required.) Pneumonia due to COVID-19 virus (Acute) Respiratory insufficiency (Acute) SARS (severe acute respiratory syndrome) (Acute) RECOMMENDATIONS: 1. Continue to wean FiO2 and PEEP to maintain oxygen saturations at or above 90%. 2. Wean Levophed to maintain a mean arterial pressure at or above 65 mmHg. 3. Continue antimicrobials as ordered. 4. Continue Lovenox as ordered. 5. Continue Lantus and sliding scale insulin coverage. 6. Continue tube feeds as tolerated. 7. Attempt to diurese patient today. 8. Obtain repeat chest x-ray. IMPRESSIONS: 1. Acute hypoxemic respiratory failure secondary to COVID-19 pneumonia The patient continued to decompensate from a respiratory perspective following admission, eventually requiring ICU transfer and subsequent intubation on May 28. The patient has completed a treatment course of remdesivir and will remain on Decadron. Given MRSA identified on sputum culture, antimicrobials will be continued. Continue to wean FiO2 and PEEP to maintain oxygen saturations at or above 90%. Continue tube feeds as tolerated. We will attempt to diurese the patient today as well. 2. Septic shock Continue current supportive measures including vasopressor support to maintain a mean arterial pressure at or above 65 mmHg. Continue antimicrobials per ID recommendations. 3. Acute kidney injury Improved. Likely prerenal in etiology with component of ischemic ATN in the setting of #2. Continue current supportive measures including vasopressor support to maintain hemodynamic stability. Continue to monitor urine output. No current indication for renal replacement therapy. 4. Hypokalemia Electrolyte repletion as ordered. Recheck levels in the morning. 5. Poorly controlled diabetes mellitus Continue Lantus and sliding scale insulin coverage. 6. Obesity/GERD Complicates care, management, recovery and prognosis. Physical therapy to work with the patient once respiratory status has improved. TIME: 35 minutes of critical care time, independent of procedures, was spent addressing the patient's acute hypoxemic respiratory failure, COVID-19 pneumonia, septic shock, acute kidney injury, diabetes mellitus, review of all data and collaboration with the care team. ([id number]) [id number]: [id number] Critical care first hour
--- NOTE | 2020-06-05 06:55 | PN_ITS ---
Patient Problems: Active and Suspected Problems (This Medical Record has been edited. Action required.) Pneumonia due to COVID-19 virus (Acute) Respiratory insufficiency (Acute) SARS (severe acute respiratory syndrome) (Acute) Subjective: Patient overnight with episodes of coughing, ongoing significant ventilatory needs unchanged from day prior with initiation of IV Lasix per pulmonary medicine with ongoing concurrent pressor therapy usage. From review of patient weight since presentation has vacillated now up to 195 pounds. Repeat chest x- ray with continued diffuse similar patchy airspace disease with decent placement of ET tube as had been concern for possible etiology for coughing fits. Patient with ongoing elevated temperatures. Patient with no obvious evidence of chills, nausea, emesis, abdominal pain, chest pain or dyspnea although currently more sedate than day prior. Objective: Physical Examination: General: More sedate than day prior, does not awaken, not alert, not able to answer orientation questions, intubated, sedated, laying in the ICU bed. Skin: normal color, turgor, no icterus, cyanosis except occasional staged ecchymoses. HEENT: AT/NC, EOM unable to be assessed given sedate status, PERRLA, moderately dry MM, intubated. Lungs: Diminished breath sounds throughout, symmetric rise, intubated, no rales, ronchi or wheezing. Heart: Regular rate and rhythm; no gallop, rub audible. Abdomen: soft, obese, no obvious evidence of tenderness to palpation without any grimace but again sedate, ND, mildly hyperactive bowel sounds. Extremities: no cyanosis or clubbing. Patient with mild right hand edema otherwise no obvious evidence of edema. Neurological: More sedate than day prior, does not awaken, not alert, not able to answer orientation questions, intubated, sedated, laying in the ICU bed; cognitive function not baseline intact; pupils equally reactive to light and accomodation; cranial nerves unable to be assessed well given its more sedate status, not moving extremities to stimuli given sedation, strength severely global decreased accordingly. Psychiatric: affect appears flat, sedate, no acute evidence of depressive or anxiety feelings. Vitals/I&O's: Vital Signs Temp Pulse Resp BP Pulse Ox 100.8 F H 82 21 H 126/46 H 90 06/05/20 06:00 06/05/20 06:00 06/05/20 06:00 06/05/20 06:00 06/05/20 06:00 Oxygen Flow Rate (L/min) 8 Oxygen Delivery Method Mechanical Ventilator Weight: 195 lb 8.8 oz Body Mass Index (BMI) 28.7 Finger Stick Blood Glucose 377 Intake and Output for Last 24 Hours 06/03/20 06/04/20 06/05/20 23:59 23:59 23:59 Intake Total 4131.94 / 4183.27 5031.14 / 5031.14 1661.33 / 1661.33 Output Total 3120 / 3120 1745 / 1745 360 / 360 Balance 1011.94 / 1063.27 3286.14 / 3286.14 1301.33 / 1301.33 Microbiology Past 72 Hours 06/01/20 06:40 Sputum, Induced/Lukens Gram Stain - Final 06/01/20 06:40 Sputum, Induced/Lukens Respiratory Culture - Final Meth. resistant Staph. aureus Laboratory Results 06/04/20 12:43: POC Glucose 240 H 06/04/20 17:58: POC Glucose 274 H 06/04/20 23:15: POC Glucose 181 H 06/05/20 04:10: WBC 17.1 H, RBC 4.01 L, Hgb 11.8 L, Hct 42.5, MCV 106.0 H D, MCH 29.4, MCHC 27.8 L D, RDW Std Deviation 53.6 H, RDW Coeff of Osorio 13.9, Plt Count 219, MPV 10.4, Immature Gran % (Auto) 3.000 H, Neut % (Auto) 71.6 H, Lymph % (Auto) 19.3, Mccracken % (Auto) 5.2, Eos % (Auto) 0.6, Baso % (Auto) 0.3, Absolute Neuts (auto) 12.2 H, Absolute Lymphs (auto) 3.30, Nucleated RBC % 0.1 06/05/20 04:10: Sodium 143, Potassium 3.1 L, Chloride 103, Carbon Dioxide 35.0 H , Anion Gap 5, BUN 16, Creatinine 0.36 L, Estim Creat Clear Calc 160.75, Est GFR (MDRD) Af Amer 238, Est GFR (MDRD) Non-Af 197, BUN/Creatinine Ratio 44.0 H, Glucose 69 L, Calcium 8.2 L, Total Bilirubin 0.40, AST 78 H, ALT 76 H, Alkaline Phosphatase 110, Total Protein 6.0 L, Albumin 1.8 L, Globulin 4.2, Albumin/Globulin Ratio 0.4 L 06/05/20 05:16: POC Glucose 88 Current Medications Albuterol Sulfate (Albuterol Ih 8.5 Gm (Proair) Inhaler (200 Puffs)) 2 puff INHALATION Q4H PRN PRN PRN Reason: SOB/WHEEZING Albuterol Sulfate (Albuterol 2.5 Mg/3 Ml Vial.Neb.) 2.5 mg INHALATION Q2H PRN PRN PRN Reason: dyspnea, wheezing Last Admin: 05/31/20 07:45 Dose: 2.5 mg Documented by: Calamine/Phenol (Menthol/Lanolin/Calamine/Znox 113 Gm Tube) 1 applic TOPICAL BID [facility]; Protocol Last Admin: 06/04/20 19:54 Dose: 1 applic Documented by: Chlorhexidine Gluconate (Chlorhexidine 15 Ml) 15 ml PO BID [facility] Last Admin: 06/04/20 19:54 Dose: 15 ml Documented by: Dextrose (Dextrose 50%-Water 25 Gm/50 Ml Disp.Syrin) 0 gm IV X1 PRN; Protocol PRN Reason: Hypoglycemia Enoxaparin Sodium (Enoxaparin 40 Mg/0.4 Ml Syringe) 40 mg SC BID OLLIE Last Admin: 06/04/20 19:52 Dose: 40 mg Documented by: Furosemide (Furosemide 40 Mg/4 Ml Vial) 40 mg IV BID@1000,1700 OLLIE Glucagon (Glucagon 1 Mg/Ml Syringe) 1 mg IM .X1 PRN PRN Reason: Hypoglycemia Sodium Chloride () 250 mls @ 15 mls/hr IV .[id number] PRN PRN Reason: Saline Flush Last Infusion: 06/05/20 06:28 Dose: 0 mls/hr Documented by: Sodium Chloride () 250 mls @ 15 mls/hr IV .[id number] PRN PRN Reason: Additional IVPB Infusion Famotidine 20 mg/ Sodium (Chloride) 10 mls @ 300 mls/hr IV Q12 OLLIE Last Infusion: 06/04/20 19:57 Dose: Infused Documented by: Fentanyl Citrate 1,000 mcg/ (Sodium Chloride) 100 mls @ 5 mls/hr CONT INF .Q20H [facility]; Protocol Last Titration: 06/05/20 06:00 Dose: 200 mcg/hr, 20 mls/hr Documented by: Norepinephrine Bitartrate 8 mg (/ Sodium Chloride) 250 mls @ 9.375 mls/hr CONT INF .[id number] OLLIE; Protocol Last Titration: 06/05/20 06:00 Dose: 7 mcg/min, 13.1 mls/hr Documented by: Enteral Nutritional Formula (Vital Af 1.2 Rick Liquid) 1,000 mls @ 60 mls/hr GT .[id number] OLLIE Last Admin: 06/04/20 19:51 Dose: 60 mls/hr Documented by: Piperacillin Sod/Tazobactam (Sod 3.375 gm/ Sodium Chloride) 50 mls @ 12.5 mls/hr IV Q8 OLLIE Last Admin: 06/05/20 06:26 Dose: 12.5 mls/hr Documented by: Propofol (Diprivan) 1,000 mg in 100 mls @ 5.322 mls/hr CONT INF .Q12H OLLIE; Protocol Last Titration: 06/05/20 06:00 Dose: 55 mcg/kg/min, 29.3 mls/hr Documented by: Vancomycin IV Pharmacy to Dose (1 ea/ Sodium Chloride) 500 mls @ 250 mls/hr IV X1 PRN; Protocol PRN Reason: Rx to Dose Vancomycin HCl 2,000 mg/ (Sodium Chloride) 540 mls @ 250 mls/hr IV Q12H [facility] Last Infusion: 06/05/20 06:36 Dose: Infused Documented by: Potassium Chloride 40 meq/ (Sodium Chloride) 120 mls @ 100 mls/hr IV BOLUS X1 ONE Stop: 06/05/20 07:18 Last Admin: 06/05/20 06:27 Dose: 100 mls/hr Documented by: Insulin Glargine (Insulin Glargine 100 Units/Ml Pen) 60 units SC BID [facility] Last Admin: 06/04/20 19:56 Dose: 60 u Documented by: Insulin Human Lispro (Insulin Lispro 100 Unit/Ml Insuln.Pen) 0 unit SC Q6H [facility]; Protocol Last Admin: 06/05/20 05:21 Dose: Not Given Documented by: Melatonin (Melatonin 3 Mg Tablet) 3 mg PO QHS PRN PRN PRN Reason: INSOMNIA Nystatin (Nystatin Powder 15gm Bottle) 1 applic TOPICAL BID OLLIE; Protocol Last Admin: 06/04/20 19:54 Dose: 1 applic Documented by: Ondansetron HCl (Ondansetron 4 Mg/2 Ml Vial) 4 mg IV Q8H PRN PRN PRN Reason: NAUSEA/VOMITING Quetiapine Fumarate (Quetiapine 100 Mg Tablet) 100 mg GT BID OLLIE Last Admin: 06/04/20 19:52 Dose: 100 mg Documented by: Sodium Chloride (0.9% Saline Lock 10 Ml Syringe) 10 - 40 ml IV UD PRN PRN Reason: SALINE FLUSH Last Admin: 06/01/20 08:47 Dose: 10 ml Documented by: STROKE Vital Signs/Narrative: Vital Signs Temp Pulse Resp BP Pulse Ox 06/05/20 06:00 100.8 F H 82 21 H 126/46 H 90 06/05/20 05:45 85 24 H 91 06/05/20 05:00 100.2 F H 75 19 H 120/47 L 92 06/05/20 04:00 99.7 F H 68 16 109/46 L 94 06/05/20 03:33 68 06/05/20 03:00 100.0 F H 69 17 105/43 L 92 Medical Necessity - Tobacco Use Smoking Status: Former smoker Assessment/Plan All Active Problems (This Medical Record has been edited. Action required.) Pneumonia due to COVID-19 virus (Acute) Respiratory insufficiency (Acute) SARS (severe acute respiratory syndrome) (Acute) The patient is a 55 y/o F w/ PMHx Diabetes mellitus type II poorly controlled, GERD, Obesity, Former Tobacco use who presented to the [facility] ED on 05/26/20 With recent positive Covid test on 05/22/2020 with fatigue, loss of taste, difficulty maintaining oral intake with cold-like symptoms progressively worsening. 1. Acute septic shock secondary to acute hypoxic respiratory failure secondary to acute COVID-19 pneumonia and HCAP MRSA and E. Coli Complicated UTI: Patient initially admitted to medical surgical floor eventually transition to PCU and ICU with eventual intubation on 05/28/2020, CT chest with no evidence of pulmonary emboli maintained on Lovenox 40 mg twice daily, completed course of remdesivir, continued Decadron to complete 10-day course, sputum culture with staph aureus therefore maintained on IV vancomycin given MRSA pneumonia and Zosyn although suspect given susceptibilities may consider de-escalation to Rocephin therapy and continued vancomycin but will defer to infectious disease, continue intubated, sedated status, tube feeds ongoing, increased Lantus secondary to acute presentation and ongoing steroid usage as noted with every 6 hours insulin sliding scale, septic shock with vasopressor support as needed to maintain MAP greater than 65 mmHg, 06/05/2020 D-dimer 1.49 therefore therapeutic regimen initiated concerns for possible association with PE although did have recent CTPA with negative PE, will defer repeat and continue to treat, initiated on IV Lasix, continue to closely monitor, repeat chest x-ray with similar appearance. 2. Acute kidney injury: Secondary to #1. Improved, creatinine increased up to 1.19 with baseline 0.4-0.5, complicated presentation given Covid status concurrently thus deferring aggressive hydration as noted #1, 06/04/2020 BUN/creatinine 18/0.41--> 06/05/2020 BUN/creatinine 16/0.36, IV Lasix initiated per pulmonary medicine given ongoing #1 presentation, continue to trend CMP. 3. Diabetes mellitus type II, poorly controlled: Patient with poorly controlled diabetes, HgbA1c 05/26/20 10.8%, exacerbated by Decadron usage, currently on Lantus 60 units subcu twice daily which may need to be altered pending continued trending as 06/05/20 AM hypoglycemic, will continue ISS q 6 hours but may need to de-escalate from high-dose coverage, continue tube feeds. 4. Hypokalemia: Potassium 3.1, supplemented per electrolyte protocol, recent mag and Clint normal, will continue to trend CMP. 5. GERD: Continue famotidine IV. 6. DVT prophylaxis: SCDs, transitioned to therapeutic Lovenox per discussion with ICU/Pulm given rising D-dimer with #1. 7. CODE STATUS: Full code. Inpatient E&M: 33596 Subs Hosp L3
--- NOTE | 2020-06-05 07:25 | RAD_ITS ---
STUDY: X-RAY CHEST REASON FOR EXAM: Female, 55 years old. respiratory failure TECHNIQUE: Single AP portable view of the chest. COMPARISON: 05/31/2020 FINDINGS: Endotracheal tube overlies the mid trachea 4 cm from the damon. Right PICC line tip overlies the cavoatrial junction. NG tube travels through GE junction with distal portion not seen. Diffuse patchy airspace disease throughout the bilateral lung parenchyma similar in comparison to previous. There is no demonstrated pleural abnormality. Normal size heart. Normal mediastinum and lillie. Normal visualized pulmonary arteries. Normal visualized aortic arch and descending thoracic aorta. Normal visualized thoracic spine. Normal visualized ribs, clavicles, and shoulders. There is no demonstrated abnormality of the visualized soft tissue structures of the upper abdomen. RAD/Chest 1 View (Portable) IMPRESSION: Lines and tubes as above with continued diffuse similar patchy airspace disease throughout the lung parenchyma. Electronically Signed: Carroll Lamb DO at 10:00 EST , Service support ,
[2020-06-05] MEDS: Propofol 10MG/Ml 1,000 MG/100 ML Bottle 29.3 MG CONT INF ×2 (07:29→09:26)
[2020-06-05] MEDS: Famotidine 200 MG/20 ML MDV 20 MG in 0.9% Normal Saline (Pres. free 8 ML 330 MG IV ×2 (08:24→21:50)
[2020-06-05] MEDS: QUEtiapine 100 MG Tablet GT ×2 (08:25→21:50)
[2020-06-05] MEDS: Enoxaparin 40 MG/0.4 ML Syringe SC (08:25)
[2020-06-05] MEDS: dexAMETHasone 4 MG Tablet 6 MG PO (08:26)
[2020-06-05] MEDS: Nystatin Powder 15gm Bottle 1 APPLIC TOPICAL ×2 (08:39→20:00)
[2020-06-05] MEDS: Chlorhexidine 15 ML PO ×2 (08:40→20:18)
[2020-06-05] MEDS: Menthol/Lanolin/Calamine/Znox 113 GM Tube 1 APPLIC TOPICAL ×2 (08:40→20:00)
[2020-06-05] MEDS: Furosemide 40 MG/4 ML Vial IV ×2 (08:42→17:29)
[2020-06-05] MEDS: Propofol 10MG/Ml 1,000 MG/100 ML Bottle 31.9 MG CONT INF ×5 (11:39→22:41)
[2020-06-05] MEDS: Insulin Lispro 100 UNIT/ML INSULN.PEN SC ×2 (12:08→23:13)
[2020-06-05 12:56] LABS: Bedside Glucose 160 mg/dL (70-110)
[2020-06-05 17:26] LABS: Bedside Glucose 231 mg/dL (70-110)
[2020-06-05] MEDS: Enoxaparin 100 MG/ML Syringe 90 MG SC (19:54)
[2020-06-05] MEDS: Vital AF 1.2 Cal Liquid 1,000 ML 30 ML GT (20:21)
[2020-06-05] MEDS: 0.9% Saline Lock 10 ML Syringe IV (21:56)
--- NOTE | 2020-06-05 22:09 | NURSING ---
Diastolic BP has been reading low in 20-30's. Changed BP cuff and readjusted restraint and BP improved to 157/66.
[2020-06-05 23:56] LABS: Bedside Glucose 220 mg/dL (70-110)
[2020-06-06] VITALS (41 sets, daily range): BP systolic 91–161; BP diastolic 45–84; PULSE 59–132; RESP 14–27; TEMP 36.9–37.7; O2SAT 85–98
[2020-06-06] MEDS: Propofol 10MG/Ml 1,000 MG/100 ML Bottle 31.9 MG CONT INF (01:45)
[2020-06-06] MEDS: TITRATION PARAMETER CHANGE 1 EACH IV (03:20)
[2020-06-06] MEDS: 0.9% Saline Lock 10 ML Syringe IV ×3 (04:23→22:24)
[2020-06-06] MEDS: Propofol 10MG/Ml 1,000 MG/100 ML Bottle 28.8 MG CONT INF ×2 (04:31→07:45)
[2020-06-06 04:58] LABS: Absolute Lymphocyte Count 2.98 X10^3/uL (0.83-4.51); Absolute Neutrophil Count 8.9 X10^3/uL (2.0-7.7); Basophil# 0.03 X10^3/uL; Basophil% 0.2 % (0-1); Eosinophil# 0.13 X10^3/uL; Hematocrit 35.7 % (37-47); Hemoglobin 10.8 g/dL (12.0-15.0); Lymphocyte # 2.98 X10^3/ul (4.0); Lymphocyte % 22.3 % (19-41); Mean Corp Hgb Conc 30.3 g/dL (32-36); Mean Corpuscular Hgb 27.7 pg (27.0-32.0); Mean Corpuscular Volume 91.5 fL (81-99); Mean Platelet Vol. 10.2 fl (6.2-12.0); Monocyte# 0.77 X10^3/uL; Monocyte% 5.8 % (0-10); NRBC Flagged by Analyzer 0 % (0-5); Neutrophil % 66.4 % (47-70); Platelet Count 249 K/mm3 (150-450); RBC Distribution Width CV 13.5 % (11.6-14.6); RBC Distribution Width SD 45.5 fl (35.1-43.9); White Blood Count 13.4 K/mm3 (4.4-11.0)
[2020-06-06 05:13] LABS: Vancomycin, Trough Level 25.5 ug/mL (5.0-15.0)
[2020-06-06 05:19] LABS: ALB/GLOB Ratio 0.4 RATIO (0.9-2.4); AST(SGOT) 52 U/L (15-37); Alanine Aminotransfer ALT/SGPT 74 U/L (13-56); Albumin, Serum 1.8 g/dL (3.2-5.0); Alkaline Phosphatase 114 U/L (45-117); Anion Gap 3 (5-15); BUN 14 mg/dL (7-18); BUN/Creat Ratio 37.2 RATIO (10-20); Calcium,Total 8.1 mg/dL (8.5-10.1); Chloride 103 mmol/L (98-107); Creatinine, Serum 0.38 mg/dL (0.55-1.02); EST Glomerular Filtration Rate 190 mL/min (>60); Est Glom Filt Rate - Afr Amer 230 mL/min (>60); Estimated Creatinine Clearance 152.29 ml/min; Globulin 4.2 g/dL (2.2-4.2); Glucose 123 mg/dL (74-106); Potassium 3.4 mmol/L (3.5-5.1); Sodium Level 140 mmol/L (136-145)
[2020-06-06] MEDS: Enoxaparin 100 MG/ML Syringe 90 MG SC ×2 (05:19→17:07)
--- NOTE | 2020-06-06 05:33 | PCM.RX.CS ---
Consult Pharmacy has been consulted to manage selected antiobiotic: Vancomycin Type of Consult: Follow-up Suspected Infection: Pneumonia Prior Doses of Antibiotics Received/Current Regimen: Medications Vancomycin HCl 2,000 mg/ (Sodium Chloride) 540 mls @ 250 mls/hr IV Q12H OLLIE Last Admin: 06/06/20 04:06 Dose: 250 mls/hr Labs: Sodium 140 mmol/L (136-145) 06/06/20 04:40 Potassium 3.4 mmol/L (3.5-5.1) L 06/06/20 04:40 Chloride 103 mmol/L (98-107) 06/06/20 04:40 Carbon Dioxide 34.0 mmol/L (21.0-32.0) H 06/06/20 04:40 Anion Gap 3 (5-15) L 06/06/20 04:40 BUN 14 mg/dL (7-18) 06/06/20 04:40 Creatinine 0.38 mg/dL (0.55-1.02) L 06/06/20 04:40 Est GFR (MDRD) Af Amer 230 mL/min (>60) 06/06/20 04:40 Est GFR (MDRD) Non-Af 190 mL/min (>60) 06/06/20 04:40 BUN/Creatinine Ratio 37.2 RATIO (10-20) H 06/06/20 04:40 Glucose 123 mg/dL (74-106) H 06/06/20 04:40 Vancomycin Trough 25.5 ug/mL (5.0-15.0) H 06/06/20 04:40 Microbiology: Microbiology 06/01/20 06:40 Sputum, Induced/Lukens Gram Stain - Final 06/01/20 06:40 Sputum, Induced/Lukens Respiratory Culture - Final Meth. resistant Staph. aureus 05/28/20 21:15 Sputum, Induced/Lukens Gram Stain - Final 05/28/20 21:15 Sputum, Induced/Lukens Respiratory Culture - Final 05/29/20 11:00 Urine Catheter - Cuellar Urine Culture - Final Presumptive E. coli 05/26/20 04:05 Blood Culture (Wb) - Right Hand Blood Culture - Final No growth in 5 days. 05/26/20 03:48 Blood Culture (Wb) - Anticubital Right Blood Culture - Final No growth in 5 days. Weight used for dosin.4 kg Estimated Creatinine Clearance: 152 Goal Trough: 15-20 mcg/mL Pharmacy Plan for Drug Dosing: Vancomycin trough level was high at 25.5, however this was drawn at just 9.3 hrs after previous dose, so a higher level is expected. Will continue same dosing for now and re-draw trough in 2 days. Pharmacy Service will continue to monitor and adjust dosing as required. Follow-Up Labs: Trough Vancomycin Labs to be done on [date and time ordered]: 06/08/20 @7650
--- NOTE | 2020-06-06 05:36 | PN_ITS ---
Subjective: The patient was seen and examined at the bedside this morning. Events from the last 24 hours have been reviewed. The patient is currently afebrile, hemodynamically stable and maintaining appropriate oxygen saturations on assist control mode of mechanical ventilation with an FiO2 requirement of 55% and PEEP of 10. Creatinine is stable. Potassium is again low this morning at 3.4. The patient remains on Levophed at 6 mcg/min to maintain hemodynamic stability. She is also on twice daily scheduled IV Lasix and is currently documented to be ov erall net +14 L for the hospital admission. Objective: The patient's most recent lab work, culture data and imaging studies have all been personally reviewed. Coronavirus PCR was positive on May 22. Urine culture was positive for presumptive E. coli. Sputum culture was positive for MRSA. General: - - Intubated, sedated and mechanically ventilated. No ventilator dyssynchrony. HEENT: Atraumatic, PERRLA, Normocephalic Oral: No Gingival or Mucosal Lesions/ Ulcerations, - - Stable endotracheal and OG tubes. Neck: Supple, No Nodes, Trachea Midline Lungs: No rhonchi, No wheeze, No rales, Diminished Cardiovascular: Regular rate, Regular Rhythm, Normal S1, Normal S2, No murmurs Abdomen: Bowel Sounds Present, Soft, Non Tender, Obese Extremities: No clubbing, No cyanosis, No edema Skin: No breakdown Musculoskeletal: No Tenderness to Palpation of Joints or Extremities Lymphatic: No Cervical, Supraclavicular, or Inguinal Adenopathy Neurological: - - No focal neurological deficits. Remains sedated on the ventilator. Vital Signs Temp Pulse Resp BP Pulse Ox 98.5 F 76 20 H 94/45 L 91 06/06/20 05:00 06/06/20 05:00 06/06/20 05:00 06/06/20 05:00 06/06/20 05:00 Oxygen Flow Rate (L/min) 8 Oxygen Delivery Method Mechanical Ventilator Weight: 192 lb 10.944 oz Body Mass Index (BMI) 28.7 Finger Stick Blood Glucose 377 Intake and Output for Last 24 Hours 06/04/20 06/05/20 06/06/20 23:59 23:59 23:59 Intake Total 5031.14 / 5031.14 5054.94 / 5120.17 924.20 / 924.20 Output Total 1745 / 1745 3310 / 3310 550 / 550 Balance 3286.14 / 3286.14 1744.94 / 1810.17 374.20 / 374.20 Labs (Last 48 Hours) 06/04/20 06/04/20 06/04/20 12:43 17:58 23:15 WBC Corrected WBC RBC Hgb Hct MCV MCH MCHC RDW Std Deviation RDW Coeff of Osorio Plt Count MPV Immature Gran % (Auto) Neut % (Auto) Lymph % (Auto) [place] % (Auto) Eos % (Auto) Baso % (Auto) Absolute Neuts (auto) Absolute Lymphs (auto) Total Counted Neutrophils % (Manual) Band Neutrophils % Lymphocytes % (Manual) Monocytes % (Manual) Eosinophils % (Manual) Basophils % (Manual) Metamyelocytes % Myelocytes % Promyelocytes % Blast Cells % Plasma Cell % (Manual) Other Cells % Nucleated RBC % Nucleated RBCs/100 WBC Differential Comment Diff Path Review Hypersegmented Neuts Atypical Lymphocytes Reactive Lymphocytes Smudge Cells Toxic Granulation Toxic Vacuolation Dohle Bodies Melida Rods Platelet Estimate Plt Morphology Comment RBC Morphology Polychromasia Hypochromasia Poikilocytosis Basophilic Stippling Anisocytosis Microcytosis Macrocytosis Spherocytes Sickle Cells Target Cells Tear Drop Cells Ovalocytes Stomatocytes [place] Bodies Domo Cells Bite Cells Crenated Cell Acanthocytes (Spur) Rouleaux Schistocytes Sodium Potassium Chloride Carbon Dioxide Anion Gap BUN Creatinine Estim Creat Clear Calc Est GFR (MDRD) Af Amer Est GFR (MDRD) Non-Af BUN/Creatinine Ratio Glucose Calcium Total Bilirubin AST ALT Alkaline Phosphatase Total Protein Albumin Globulin Albumin/Globulin Ratio Vancomycin Trough POC Glucose 240 H 274 H 181 H 06/05/20 06/05/20 06/05/20 04:10 04:10 05:16 WBC 17.1 H Corrected WBC RBC 4.01 L Hgb 11.8 L Hct 42.5 MCV 106.0 H D MCH 29.4 MCHC 27.8 L D RDW Std Deviation 53.6 H RDW Coeff of Osorio 13.9 Plt Count 219 MPV 10.4 Immature Gran % (Auto) 3.000 H Neut % (Auto) 71.6 H Lymph % (Auto) 19.3 [place] % (Auto) 5.2 Eos % (Auto) 0.6 Baso % (Auto) 0.3 Absolute Neuts (auto) 12.2 H Absolute Lymphs (auto) 3.30 Total Counted Neutrophils % (Manual) Band Neutrophils % Lymphocytes % (Manual) Monocytes % (Manual) Eosinophils % (Manual) Basophils % (Manual) Metamyelocytes % Myelocytes % Promyelocytes % Blast Cells % Plasma Cell % (Manual) Other Cells % Nucleated RBC % 0.1 Nucleated RBCs/100 WBC Differential Comment Diff Path Review Hypersegmented Neuts Atypical Lymphocytes Reactive Lymphocytes Smudge Cells Toxic Granulation Toxic Vacuolation Dohle Bodies Melida Rods Platelet Estimate Plt Morphology Comment RBC Morphology Polychromasia Hypochromasia Poikilocytosis Basophilic Stippling Anisocytosis Microcytosis Macrocytosis Spherocytes Sickle Cells Target Cells Tear Drop Cells Ovalocytes Stomatocytes [place] Bodies Domo Cells Bite Cells Crenated Cell Acanthocytes (Spur) Rouleaux Schistocytes Sodium 143 Potassium 3.1 L Chloride 103 Carbon Dioxide 35.0 H Anion Gap 5 BUN 16 Creatinine 0.36 L Estim Creat Clear Calc 160.75 Est GFR (MDRD) Af Amer 238 Est GFR (MDRD) Non-Af 197 BUN/Creatinine Ratio 44.0 H Glucose 69 L Calcium 8.2 L Total Bilirubin 0.40 AST 78 H ALT 76 H Alkaline Phosphatase 110 Total Protein 6.0 L Albumin 1.8 L Globulin 4.2 Albumin/Globulin Ratio 0.4 L Vancomycin Trough POC Glucose 88 06/05/20 06/05/20 06/05/20 12:04 16:58 23:08 WBC Corrected WBC RBC Hgb Hct MCV MCH MCHC RDW Std Deviation RDW Coeff of Osorio Plt Count MPV Immature Gran % (Auto) Neut % (Auto) Lymph % (Auto) [place] % (Auto) Eos % (Auto) Baso % (Auto) Absolute Neuts (auto) Absolute Lymphs (auto) Total Counted Neutrophils % (Manual) Band Neutrophils % Lymphocytes % (Manual) Monocytes % (Manual) Eosinophils % (Manual) Basophils % (Manual) Metamyelocytes % Myelocytes % Promyelocytes % Blast Cells % Plasma Cell % (Manual) Other Cells % Nucleated RBC % Nucleated RBCs/100 WBC Differential Comment Diff Path Review Hypersegmented Neuts Atypical Lymphocytes Reactive Lymphocytes Smudge Cells Toxic Granulation Toxic Vacuolation Dohle Bodies Melida Rods Platelet Estimate Plt Morphology Comment RBC Morphology Polychromasia Hypochromasia Poikilocytosis Basophilic Stippling Anisocytosis Microcytosis Macrocytosis Spherocytes Sickle Cells Target Cells Tear Drop Cells Ovalocytes Stomatocytes [place] Bodies [place] Cells Bite Cells Crenated Cell Acanthocytes (Spur) Rouleaux Schistocytes Sodium Potassium Chloride Carbon Dioxide Anion Gap BUN Creatinine Estim Creat Clear Calc Est GFR (MDRD) Af Amer Est GFR (MDRD) Non-Af BUN/Creatinine Ratio Glucose Calcium Total Bilirubin AST ALT Alkaline Phosphatase Total Protein Albumin Globulin Albumin/Globulin Ratio Vancomycin Trough POC Glucose 160 H 231 H 220 H 06/06/20 06/06/20 06/06/20 03:40 03:40 03:40 WBC Cancelled Corrected WBC Cancelled RBC Cancelled Hgb Cancelled Hct Cancelled MCV Cancelled MCH Cancelled MCHC Cancelled RDW Std Deviation Cancelled RDW Coeff of Osorio Cancelled Plt Count Cancelled MPV Cancelled Immature Gran % (Auto) Cancelled Neut % (Auto) Cancelled Lymph % (Auto) Cancelled [place] % (Auto) Cancelled Eos % (Auto) Cancelled Baso % (Auto) Cancelled Absolute Neuts (auto) Cancelled Absolute Lymphs (auto) Cancelled Total Counted Cancelled Neutrophils % (Manual) Cancelled Band Neutrophils % Cancelled Lymphocytes % (Manual) Cancelled Monocytes % (Manual) Cancelled Eosinophils % (Manual) Cancelled Basophils % (Manual) Cancelled Metamyelocytes % Cancelled Myelocytes % Cancelled Promyelocytes % Cancelled Blast Cells % Cancelled Plasma Cell % (Manual) Cancelled Other Cells % Cancelled Nucleated RBC % Cancelled Nucleated RBCs/100 WBC Cancelled Differential Comment Cancelled Diff Path Review Cancelled Hypersegmented Neuts Cancelled Atypical Lymphocytes Cancelled Reactive Lymphocytes Cancelled Smudge Cells Cancelled Toxic Granulation Cancelled Toxic Vacuolation Cancelled Dohle Bodies Cancelled Melida Rods Cancelled Platelet Estimate Cancelled Plt Morphology Comment Cancelled RBC Morphology Cancelled Polychromasia Cancelled Hypochromasia Cancelled Poikilocytosis Cancelled Basophilic Stippling Cancelled Anisocytosis Cancelled Microcytosis Cancelled Macrocytosis Cancelled Spherocytes Cancelled Sickle Cells Cancelled Target Cells Cancelled Tear Drop Cells Cancelled Ovalocytes Cancelled Stomatocytes Cancelled [place] Bodies Cancelled Domo Cells Cancelled Bite Cells Cancelled Crenated Cell Cancelled Acanthocytes (Spur) Cancelled Rouleaux Cancelled Schistocytes Cancelled Sodium Cancelled Potassium Cancelled Chloride Cancelled Carbon Dioxide Cancelled Anion Gap Cancelled BUN Cancelled Creatinine Cancelled Estim Creat Clear Calc Cancelled Est GFR (MDRD) Af Amer Cancelled Est GFR (MDRD) Non-Af Cancelled BUN/Creatinine Ratio Cancelled Glucose Cancelled Calcium Cancelled Total Bilirubin Cancelled AST Cancelled ALT Cancelled Alkaline Phosphatase Cancelled Total Protein Cancelled Albumin Cancelled Globulin Cancelled Albumin/Globulin Ratio Cancelled Vancomycin Trough Cancelled POC Glucose 06/06/20 06/06/20 06/06/20 04:40 04:40 04:40 WBC 13.4 H Corrected WBC RBC 3.90 L Hgb 10.8 L Hct 35.7 L MCV 91.5 D MCH 27.7 MCHC 30.3 L D RDW Std Deviation 45.5 H RDW Coeff of Osorio 13.5 Plt Count 249 MPV 10.2 Immature Gran % (Auto) 4.300 H Neut % (Auto) 66.4 Lymph % (Auto) 22.3 [place] % (Auto) 5.8 Eos % (Auto) 1.0 Baso % (Auto) 0.2 Absolute Neuts (auto) 8.9 H Absolute Lymphs (auto) 2.98 Total Counted Neutrophils % (Manual) Band Neutrophils % Lymphocytes % (Manual) Monocytes % (Manual) Eosinophils % (Manual) Basophils % (Manual) Metamyelocytes % Myelocytes % Promyelocytes % Blast Cells % Plasma Cell % (Manual) Other Cells % Nucleated RBC % 0 Nucleated RBCs/100 WBC Differential Comment Diff Path Review Hypersegmented Neuts Atypical Lymphocytes Reactive Lymphocytes Smudge Cells Toxic Granulation Toxic Vacuolation Dohle Bodies Melida Rods Platelet Estimate Plt Morphology Comment RBC Morphology Polychromasia Hypochromasia Poikilocytosis Basophilic Stippling Anisocytosis Microcytosis Macrocytosis Spherocytes Sickle Cells Target Cells Tear Drop Cells Ovalocytes Stomatocytes [place] Bodies [place] Cells Bite Cells Crenated Cell Acanthocytes (Spur) Rouleaux Schistocytes Sodium 140 Potassium 3.4 L Chloride 103 Carbon Dioxide 34.0 H Anion Gap 3 L BUN 14 Creatinine 0.38 L Estim Creat Clear Calc 152.29 Est GFR (MDRD) Af Amer 230 Est GFR (MDRD) Non-Af 190 BUN/Creatinine Ratio 37.2 H Glucose 123 H Calcium 8.1 L Total Bilirubin 0.50 AST 52 H ALT 74 H Alkaline Phosphatase 114 Total Protein 6.0 L Albumin 1.8 L Globulin 4.2 Albumin/Globulin Ratio 0.4 L Vancomycin Trough 25.5 H POC Glucose Clinical Impression(s) from Imaging Studies Chest X-Ray 05/26/20 03:41 IMPRESSION: Multifocal pneumonia to include viral pneumonia. Electronically Signed: Forrest Cee MD at 4:28 EST , Service support , Chest CTA 05/26/20 04:23 IMPRESSION: No pulmonary embolus or thoracic aortic dissection. Diffuse groundglass opacities compatible with multifocal pneumonia very suggestive of viral pneumonia. Multiple small mediastinal lymph nodes. Electronically Signed: Forrest Cee MD at 5:18 EST , Service support , Chest X-Ray 05/28/20 04:38 IMPRESSION: GA confluent airspace disease likely pneumonia multilobular and bilateral. Aeration has worsened. Electronically Signed: Nighat Neal MD at 5:48 EST , Service support , Chest X-Ray 05/28/20 19:20 IMPRESSION: 1. Tubes and catheters as described. 2. Bilateral lower lobe pulmonary infiltrates unchanged from prior exam. Electronically Signed: Xavier Beach DO at 19:57 EST Tel [phone], Service support , KUB X-Ray 05/28/20 19:20 IMPRESSION: 1. OG tube as described. 2. No acute intra-abdominal process. 3. Persistent bibasilar infiltrates. Electronically Signed: Xavier Beach DO at 19:52 EST Tel [phone], Service support , Chest X-Ray 05/31/20 08:37 IMPRESSION: All the support tubes are in good position. Residual bilateral pulmonary infiltrates although there has been a mild degree of improvement as compared to prior study. Electronically Signed: Mauricio Marycececorrie, at 9:14 EST , Service support , Chest X-Ray 05/31/20 19:30 IMPRESSION: Endotracheal tube at the right main bronchus. Worsening bilateral edema or pneumonia. Electronically Signed: Johny Calderon MD at 21:23 EST , Service support , ADDENDUM: 05/31/20 2138 IMPRESSION: Endotracheal tube at the right main bronchus. Worsening bilateral edema or pneumonia. N.B. : Tina Hicks RN , RN, confirmed on 05/31/2020 21:31:35 (ET) that the healthcare facility has received the radiology report. Electronically Signed: Johny Calderon MD at 21:23 EST , Service support , KUB X-Ray 05/31/20 20:40 IMPRESSION: Gastric tube with tip in the body. Electronically Signed: Verona Esparza, at 21:13 EST Tel , Service support , Chest X-Ray 06/05/20 07:25 IMPRESSION: Lines and tubes as above with continued diffuse similar patchy airspace disease throughout the lung parenchyma. Electronically Signed: Carroll Labm DO at 10:00 EST , Service support , Medical Necessity - Tobacco Use Smoking Status: Former smoker Assessment/Plan All Active Problems (This Medical Record has been edited. Action required.) Pneumonia due to COVID-19 virus (Acute) Respiratory insufficiency (Acute) SARS (severe acute respiratory syndrome) (Acute) RECOMMENDATIONS: 1. Continue to wean FiO2 and PEEP to maintain oxygen saturations at or above 90%. 2. Wean Levophed to maintain a mean arterial pressure at or above 65 mmHg. 3. Continue antimicrobials as ordered. 4. Continue therapeutic Lovenox as ordered. 5. Continue Lantus and sliding scale insulin coverage. 6. Continue tube feeds as tolerated. 7. Attempt to increase diuretic regimen as tolerated by hemodynamics and renal function. IMPRESSIONS: 1. Acute hypoxemic respiratory failure secondary to COVID-19 pneumonia The patient continued to decompensate from a respiratory perspective following admission, eventually requiring ICU transfer and subsequent intubation on May 28. The patient has completed a treatment course of remdesivir and will remain on Decadron. Given MRSA identified on sputum culture, antimicrobials will be continued. Continue to wean FiO2 and PEEP to maintain oxygen saturations at or above 90%. Continue tube feeds as tolerated. Given the patient's overall net positive fluid status, will again attempt to diurese the patient as tolerated by hemodynamics and renal function. 2. Septic shock Continue current supportive measures including vasopressor support to maintain a mean arterial pressure at or above 65 mmHg. Continue antimicrobials per ID recommendations. 3. Acute kidney injury Improved. Likely prerenal in etiology with component of ischemic ATN in the setting of #2. Continue current supportive measures including vasopressor support to maintain hemodynamic stability. Continue to monitor urine output. No current indication for renal replacement therapy. 4. Hypokalemia Electrolyte repletion as ordered. Recheck levels in the morning. 5. Poorly controlled diabetes mellitus Continue Lantus and sliding scale insulin coverage. 6. Obesity/GERD Complicates care, management, recovery and prognosis. Physical therapy to work with the patient once respiratory status has improved. TIME: 33 minutes of critical care time, independent of procedures, was spent addressing the patient's acute hypoxemic respiratory failure, COVID-19 pneumonia, septic shock, acute kidney injury, diabetes mellitus, review of all data and collaboration with the care team. ([id number]) [id number] Critical care first hour
[2020-06-06 05:41] LABS: Bedside Glucose 128 mg/dL (70-110)
--- NOTE | 2020-06-06 06:51 | PN_ITS ---
Patient Problems: Active and Suspected Problems (This Medical Record has been edited. Action required.) Pneumonia due to COVID-19 virus (Acute) Respiratory insufficiency (Acute) SARS (severe acute respiratory syndrome) (Acute) Subjective: The patient is a 55 y/o F w/ PMHx Diabetes mellitus type II poorly controlled, GERD, Obesity, Former Tobacco use who presented to the [facility] ED on 05/26/20 With recent positive Covid test on 05/22/2020 with fatigue, loss of taste, difficulty maintaining oral intake with cold-like symptoms progressively worsening. Patient initially admitted to medical surgical floor eventually transition to PCU and ICU with eventual intubation on 05/28/2020, CT chest with no evidence of pulmonary emboli maintained on Lovenox 40 mg twice daily, completed course of remdesivir, continued Decadron to complete 10-day course, sputum culture with staph aureus therefore maintained on IV vancomycin given MRSA pneumonia and Zosyn although suspect given susceptibilities may consider de-escalation to Rocephin therapy and continued vancomycin but will defer to infectious disease, continue intubated, sedated status, tube feeds ongoing, increased Lantus secondary to acute presentation and ongoing steroid usage as noted with every 6 hours insulin sliding scale, septic shock with vasopressor support as needed to maintain MAP greater than 65 mmHg, 06/05/2020 D-dimer 1.49 therefore therapeutic regimen initiated concerns for possible association with PE although did have recent CTPA with negative PE, 06/05/20 CXR similar. Patient 06/05/20 initiated on lasix, increased 06/06/20 80 mg BID per Pulmonary, ongoing levophed usage, requiring aggressive sedation with some concern for underlying possible substance abuse given the levels required. Patient overnight with no acute events per discussion with staff. Patient remains of levophed. Patient remained afebrile overnight. Patient still not tolerating tube feeds well with high residuals with decreased rate. Patient per discussion with staff with no recent bowel movements with initiation of bowel regimen. Patient with ongoing difficulty appropriately ventilating with lower oxygenation's high 80s to 90s on elevated settings. Objective: Physical Examination: General: Sedated, does not awaken to stimuli, not alert, not able to answer orientation questions, intubated, laying in the ICU bed. Skin: normal color, turgor, no icterus, cyanosis except occasional staged ecchymoses. HEENT: AT/NC, EOM unable to be assessed given sedate status, PERRLA, moderately dry MM, intubated. Lungs: Diminished breath sounds throughout, symmetric rise, intubated, no rales, ronchi or wheezing. Heart: Regular rate and rhythm; no gallop, rub audible. Abdomen: soft, obese, no obvious evidence of tenderness to palpation without any grimace but again sedate, ND, mildly hyperactive bowel sounds. Extremities: no cyanosis or clubbing. Patient with mild right hand edema, improving. Neurological: Sedated, does not awaken to stimuli, not alert, not able to answer orientation questions, intubated, laying in the ICU bed; cognitive function not baseline intact; pupils equally reactive to light and accomodation; cranial nerves unable to be assessed well given its more sedate status, not moving extremities to stimuli given sedation, strength severely global decreased accordingly. Psychiatric: affect appears flat, no acute evidence of depressive or anxiety feelings. Vitals/I&O's: Vital Signs Temp Pulse Resp BP Pulse Ox 99.1 F 66 18 153/80 H 92 06/06/20 06:00 06/06/20 06:00 06/06/20 06:00 06/06/20 06:00 06/06/20 06:00 Oxygen Flow Rate (L/min) 8 Oxygen Delivery Method Mechanical Ventilator Weight: 192 lb 10.944 oz Body Mass Index (BMI) 28.7 Finger Stick Blood Glucose 377 Intake and Output for Last 24 Hours 06/04/20 06/05/20 06/06/20 23:59 23:59 23:59 Intake Total 5031.14 / 5031.14 5054.94 / 5120.17 1504.63 / 1504.63 Output Total 1745 / 1745 3310 / 3310 550 / 550 Balance 3286.14 / 3286.14 1744.94 / 1810.17 954.63 / 954.63 Microbiology Past 72 Hours 06/01/20 06:40 Sputum, Induced/[place] Gram Stain - Final 06/01/20 06:40 Sputum, Induced/[place] Respiratory Culture - Final Meth. resistant Staph. aureus Laboratory Results 06/05/20 12:04: POC Glucose 160 H 06/05/20 16:58: POC Glucose 231 H 06/05/20 23:08: POC Glucose 220 H 06/06/20 03:40: Vancomycin Trough Cancelled 06/06/20 03:40: WBC Cancelled, Corrected WBC Cancelled, RBC Cancelled, Hgb Cancelled, Hct Cancelled, MCV Cancelled, MCH Cancelled, MCHC Cancelled, RDW Std Deviation Cancelled, RDW Coeff of Osorio Cancelled, Plt Count Cancelled, MPV Cancelled, Immature Gran % (Auto) Cancelled, Neut % (Auto) Cancelled, Lymph % (Auto) Cancelled, [place] % (Auto) Cancelled, Eos % (Auto) Cancelled, Baso % (Auto) Cancelled, Absolute Neuts (auto) Cancelled, Absolute Lymphs (auto) Cancelled, Total Counted Cancelled, Neutrophils % (Manual) Cancelled, Band Neutrophils % Cancelled, Lymphocytes % (Manual) Cancelled, Monocytes % (Manual) Cancelled, Eosinophils % (Manual) Cancelled, Basophils % (Manual) Cancelled, Metamyelocytes % Cancelled, Myelocytes % Cancelled, Promyelocytes % Cancelled, Blast Cells % Cancelled, Plasma Cell % (Manual) Cancelled, Other Cells % Cancelled, Nucleated RBC % Cancelled, Nucleated RBCs/100 WBC Cancelled, Differential Comment Cancelled, Diff Path Review Cancelled, Hypersegmented Neuts Cancelled, Atypical Lymphocytes Cancelled, Reactive Lymphocytes Cancelled, Smudge Cells Cancelled, Toxic Granulation Cancelled, Toxic Vacuolation Cancelled, Dohle Bodies Cancelled, [place] Rods Cancelled, Platelet Estimate Cancelled, Plt Morphology Comment Cancelled, RBC Morphology Cancelled, Polychromasia Cancelled, Hypoc hromasia Cancelled, Poikilocytosis Cancelled, Basophilic Stippling Cancelled, Anisocytosis Cancelled, Microcytosis Cancelled, Macrocytosis Cancelled, Spherocytes Cancelled, Sickle Cells Cancelled, Target Cells Cancelled, Tear Drop Cells Cancelled, Ovalocytes Cancelled, Stomatocytes Cancelled, [place] Bodies Cancelled, [place] Cells Cancelled, Bite Cells Cancelled, Crenated Cell Cancelled, Acanthocytes (Spur) Cancelled, Rouleaux Cancelled, Schistocytes Cancelled 06/06/20 03:40: Sodium Cancelled, Potassium Cancelled, Chloride Cancelled, Carbon Dioxide Cancelled, Anion Gap Cancelled, BUN Cancelled, Creatinine Cancelled, Estim Creat Clear Calc Cancelled, Est GFR (MDRD) Af Amer Cancelled, Est GFR (MDRD) Non-Af Cancelled, BUN/Creatinine Ratio Cancelled, Glucose Cancell ed, Calcium Cancelled, Total Bilirubin Cancelled, AST Cancelled, ALT Cancelled, Alkaline Phosphatase Cancelled, Total Protein Cancelled, Albumin Cancelled, Globulin Cancelled, Albumin/Globulin Ratio Cancelled 06/06/20 04:40: Vancomycin Trough 25.5 H 06/06/20 04:40: WBC 13.4 H, RBC 3.90 L, Hgb 10.8 L, Hct 35.7 L, MCV 91.5 D, MCH 27.7, MCHC 30.3 L D, RDW Std Deviation 45.5 H, RDW Coeff of [place]sorio 13.5, Plt Count 249, MPV 10.2, Immature Gran % (Auto) 4.300 H, Neut % (Auto) 66.4, Lymph % (Auto) 22.3, [place] % (Auto) 5.8, Eos % (Auto) 1.0, Baso % (Auto) 0.2, Absolute Neuts (auto) 8.9 H, Absolute Lymphs (auto) 2.98, Nucleated RBC % 0 06/06/20 04:40: Sodium 140, Potassium 3.4 L, Chloride 103, Carbon Dioxide 34.0 H , Anion Gap 3 L, BUN 14, Creatinine 0.38 L, Estim Creat Clear Calc 152.29, Est GFR (MDRD) Af Amer 230, Est GFR (MDRD) Non-Af 190, BUN/Creatinine Ratio 37.2 H, Glucose 123 H, Calcium 8.1 L, Total Bilirubin 0.50, AST 52 H, ALT 74 H, Alkaline Phosphatase 114, Total Protein 6.0 L, Albumin 1.8 L, Globulin 4.2, Albumin/Globulin Ratio 0.4 L 06/06/20 05:18: POC Glucose 128 H Current Medications Albuterol Sulfate (Albuterol Ih 8.5 Gm (Proair) Inhaler (200 Puffs)) 2 puff INHALATION Q4H PRN PRN PRN Reason: SOB/WHEEZING Albuterol Sulfate (Albuterol 2.5 Mg/3 Ml Vial.Neb.) 2.5 mg INHALATION Q2H PRN PRN PRN Reason: dyspnea, wheezing Last Admin: 05/31/20 07:45 Dose: 2.5 mg Documented by: Calamine/Phenol (Menthol/Lanolin/Calamine/Znox 113 Gm Tube) 1 applic TOPICAL BID [facility]; Protocol Last Admin: 06/05/20 20:00 Dose: 1 applic Documented by: Chlorhexidine Gluconate (Chlorhexidine 15 Ml) 15 ml PO BID [facility] Last Admin: 06/05/20 20:18 Dose: 15 ml Documented by: Dexamethasone (Dexamethasone 4 Mg Tablet) 6 mg PO DAILY [facility] Last Admin: 06/05/20 08:26 Dose: 6 mg Documented by: Dextrose (Dextrose 50%-Water 25 Gm/50 Ml Disp.Syrin) 0 gm IV X1 PRN; Protocol PRN Reason: Hypoglycemia Enoxaparin Sodium (Enoxaparin 100 Mg/Ml Syringe) 90 mg SC Q12@0600,1800 [facility] Last Admin: 06/06/20 05:19 Dose: 90 mg Documented by: Furosemide (Furosemide 100 Mg/10 Ml Vial) 80 mg IV BID@1000,1700 [facility] Glucagon (Glucagon 1 Mg/Ml Syringe) 1 mg IM .X1 PRN PRN Reason: Hypoglycemia Sodium Chloride () 250 mls @ 15 mls/hr IV .[id number] PRN PRN Reason: Saline Flush Last Infusion: 06/06/20 04:06 Dose: 0 mls/hr Documented by: Sodium Chloride () 250 mls @ 15 mls/hr IV .[id number] PRN PRN Reason: Additional IVPB Infusion Famotidine 20 mg/ Sodium (Chloride) 10 mls @ 300 mls/hr IV Q12 [facility] Last Infusion: 06/05/20 21:58 Dose: Infused Documented by: Fentanyl Citrate 1,000 mcg/ (Sodium Chloride) 100 mls @ 5 mls/hr CONT INF .Q20H [facility]; Protocol Last Admin: 06/06/20 06:32 Dose: 200 mcg/hr, 20 mls/hr Documented by: Norepinephrine Bitartrate 8 mg (/ Sodium Chloride) 250 mls @ 9.375 mls/hr CONT INF .[id number] [facility]; Protocol Last Titration: 06/06/20 06:00 Dose: 6 mcg/min, 11.3 mls/hr Documented by: Enteral Nutritional Formula (Vital Af 1.2 Rick Liquid) 1,000 mls @ 60 mls/hr GT .[id number] [facility] Last Admin: 06/05/20 20:21 Dose: 30 mls/hr Documented by: Piperacillin Sod/Tazobactam (Sod 3.375 gm/ Sodium Chloride) 50 mls @ 12.5 mls/hr IV Q8 [facility] Last Admin: 06/06/20 06:33 Dose: 12.5 mls/hr Documented by: Propofol (Diprivan) 1,000 mg in 100 mls @ 5.244 mls/hr CONT INF .Q12H [facility]; Protocol Last Titration: 06/06/20 06:00 Dose: 55 mcg/kg/min, 28.8 mls/hr Documented by: Vancomycin IV Pharmacy to Dose (1 ea/ Sodium Chloride) 500 mls @ 250 mls/hr IV X1 PRN; Protocol PRN Reason: Rx to Dose Vancomycin HCl 2,000 mg/ (Sodium Chloride) 540 mls @ 250 mls/hr IV Q12H [facility] Last Infusion: 06/06/20 06:16 Dose: Infused Documented by: Potassium Chloride 40 meq/ (Sodium Chloride) 120 mls @ 100 mls/hr IV BOLUS X1 ONE Stop: 06/06/20 07:56 Insulin Glargine (Insulin Glargine 100 Units/Ml Pen) 60 units SC BID [facility] Last Admin: 06/05/20 23:14 Dose: 60 u Documented by: Insulin Human Lispro (Insulin Lispro 100 Unit/Ml Insuln.Pen) 0 unit SC Q6H [facility]; Protocol Last Admin: 06/06/20 05:20 Dose: Not Given Documented by: Melatonin (Melatonin 3 Mg Tablet) 3 mg PO QHS PRN PRN PRN Reason: INSOMNIA Nystatin (Nystatin Powder 15gm Bottle) 1 applic TOPICAL BID [facility]; Protocol Last Admin: 06/05/20 20:00 Dose: 1 applic Documented by: Ondansetron HCl (Ondansetron 4 Mg/2 Ml Vial) 4 mg IV Q8H PRN PRN PRN Reason: NAUSEA/VOMITING Quetiapine Fumarate (Quetiapine 100 Mg Tablet) 100 mg GT BID [facility] Last Admin: 06/05/20 21:50 Dose: 100 mg Documented by: Sodium Chloride (0.9% Saline Lock 10 Ml Syringe) 10 - 40 ml IV UD PRN PRN Reason: SALINE FLUSH Last Admin: 12/27/20 05:20 Dose: 40 ml Documented by: STROKE Vital Signs/Narrative: Vital Signs Temp Pulse Resp BP Pulse Ox 06/06/20 06:00 99.1 F 66 18 153/80 H 92 06/06/20 05:00 98.5 F 76 20 H 94/45 L 91 06/06/20 04:45 72 18 136/60 H 92 06/06/20 04:30 120/58 L 06/06/20 04:15 96/50 L 06/06/20 04:00 98.6 F 76 16 152/65 H 94 06/06/20 03:00 98.9 F 62 17 107/53 L 93 Medical Necessity - Tobacco Use Smoking Status: Former smoker Assessment/Plan All Active Problems (This Medical Record has been edited. Action required.) Pneumonia due to COVID-19 virus (Acute) Respiratory insufficiency (Acute) SARS (severe acute respiratory syndrome) (Acute) The patient is a 55 y/o F w/ PMHx Diabetes mellitus type II poorly controlled, GERD, Obesity, Former Tobacco use who presented to the [facility] ED on 05/26/20 With recent positive Covid test on 05/22/2020 with fatigue, loss of taste, difficulty maintaining oral intake with cold-like symptoms progressively worsening. 1. Acute septic shock secondary to acute hypoxic respiratory failure secondary to acute COVID-19 pneumonia and HCAP MRSA and E. Coli Complicated UTI: Patient initially admitted to medical surgical floor eventually transition to PCU and ICU with eventual intubation on 05/28/2020, CT chest with no evidence of pulmonary emboli maintained on Lovenox 40 mg twice daily, completed course of remdesivir, continued Decadron to complete 10-day course, sputum culture with staph aureus therefore maintained on IV vancomycin given MRSA pneumonia and Zosyn although suspect given susceptibilities may consider de-escalation to Rocephin therapy and continued vancomycin but will defer to infectious disease, continue intubated, sedated status, tube feeds ongoing, increased Lantus secondary to acute presentation and ongoing steroid usage as noted with every 6 hours insulin sliding scale, septic shock with vasopressor support as needed to maintain MAP greater than 65 mmHg, 06/05/2020 D-dimer 1.49 therefore therapeutic regimen initiated concerns for possible association with PE although did have recent CTPA with negative PE, 06/05/20 CXR similar. Patient 06/05/20 initiated on lasix, increased 06/06/20 80 mg BID per Pulmonary, ongoing levophed usage, requiring aggressive sedation with some concern for underlying possible substance abuse given the levels required. 2. Acute kidney injury: Secondary to #1. Improved, creatinine increased up to 1.19 with baseline 0.4-0.5, complicated presentation given Covid status concurrently thus deferring aggressive hydration as noted #1, 06/04/2020 BUN/creatinine 18/0.41--> 06/06/2020 BUN/creatinine 14/0.38, IV Lasix initiated per pulmonary medicine given ongoing #1 presentation, continue to trend CMP. 3. Diabetes mellitus type II, poorly controlled: Patient with poorly controlled diabetes, HgbA1c 05/26/20 10.8%, exacerbated by Decadron usage, currently on Lantus 60 units subcu twice daily which may need to be altered pending continued trending as 06/05/20 AM hypoglycemic, will continue ISS q 6 hours but may need to de-escalate from high-dose coverage, continue tube feeds. 4. Hypokalemia: Potassium 3.4, supplemented per electrolyte protocol, recent mag and [place] normal, will continue to trend CMP. 5. GERD: Continued famotidine IV. 6. DVT prophylaxis: SCDs, therapeutic Lovenox. 7. CODE STATUS: Full code. Inpatient E&M: [id number] Subs Hosp L3
[2020-06-06] MEDS: dexAMETHasone 4 MG Tablet 6 MG PO (07:52)
[2020-06-06] MEDS: QUEtiapine 100 MG Tablet GT ×2 (07:53→22:27)
[2020-06-06] MEDS: Menthol/Lanolin/Calamine/Znox 113 GM Tube 1 APPLIC TOPICAL ×2 (07:54→22:28)
[2020-06-06] MEDS: Chlorhexidine 15 ML PO ×2 (07:54→23:16)
[2020-06-06] MEDS: Furosemide 100 MG/10 ML Vial 80 MG IV ×2 (07:55→17:08)
[2020-06-06] MEDS: Vital AF 1.2 Cal Liquid 1,000 ML 40 ML GT (08:00)
[2020-06-06] MEDS: Nystatin Powder 15gm Bottle 1 APPLIC TOPICAL ×2 (08:27→22:28)
[2020-06-06] MEDS: Famotidine 200 MG/20 ML MDV 20 MG in 0.9% Normal Saline (Pres. free 8 ML 330 MG IV (10:23)
[2020-06-06] MEDS: Propofol 10MG/Ml 1,000 MG/100 ML Bottle 31.5 MG CONT INF ×5 (11:00→21:49)
[2020-06-06] MEDS: Docusate Sodium 100 MG/10 ML UDC PO ×2 (12:22→22:24)
[2020-06-06] MEDS: Vital AF 1.2 Cal Liquid 1,000 ML 50 ML GT (12:45)
[2020-06-06] MEDS: Insulin Lispro 100 UNIT/ML INSULN.PEN SC ×3 (12:46→23:15)
[2020-06-06 13:05] LABS: Bedside Glucose 173 mg/dL (70-110)
[2020-06-06 18:00] LABS: Bedside Glucose 231 mg/dL (70-110)
[2020-06-06] MEDS: fentaNYL 100 MCG/2 ML Ampul 50 MCG IV (18:30)
[2020-06-06] MEDS: Etomidate 20 MG/10 ML Vial IV (18:30)
[2020-06-06] MEDS: Famotidine 200 MG/20 ML MDV 20 MG in 0.9% Normal Saline (Pres. free 8 ML 300 MG IV (22:24)
[2020-06-06] MEDS: Vital AF 1.2 Cal Liquid 1,000 ML 60 ML GT (23:16)
[2020-06-06 23:41] LABS: Bedside Glucose 198 mg/dL (70-110)
[2020-06-06 23:41] LABS: Bedside Glucose 209 mg/dL (70-110)
[2020-06-07] VITALS (47 sets, daily range): BP systolic 73–180; BP diastolic 41–87; PULSE 54–133; RESP 14–33; TEMP 36.3–38.7; O2SAT 86–100
[2020-06-07] MEDS: Midazolam 2 MG/2 ML Syringe IV (00:57)
[2020-06-07] MEDS: Propofol 10MG/Ml 1,000 MG/100 ML Bottle 31.5 MG CONT INF ×4 (01:01→23:00)
[2020-06-07 05:14] LABS: Absolute Lymphocyte Count 3.61 X10^3/uL (0.83-4.51); Absolute Neutrophil Count 8.3 X10^3/uL (2.0-7.7); Basophil# 0.07 X10^3/uL; Basophil% 0.5 % (0-1); Differential Indicated SCAN CRITERIA MET; Eosinophil# 0.11 X10^3/uL; Eosinophils% 0.8 % (0-5); Hematocrit 50.5 % (37-47); Hemoglobin 15.3 g/dL (12.0-15.0); Lymphocyte # 3.61 X10^3/ul (4.0); Lymphocyte % 27.5 % (19-41); Mean Corp Hgb Conc 30.3 g/dL (32-36); Mean Corpuscular Hgb 28.1 pg (27.0-32.0); Mean Corpuscular Volume 92.8 fL (81-99); Mean Platelet Vol. 10.7 fl (6.2-12.0); Monocyte# 0.65 X10^3/uL; NRBC Flagged by Analyzer 0.2 % (0-5); Neutrophil # 8.31 X10^3/uL (2.7-7.7); Neutrophil % 63.4 % (47-70); POSITIVE COUNT YES; Platelet Count 218 K/mm3 (150-450); RBC Distribution Width CV 13.8 % (11.6-14.6); RBC Distribution Width SD 46.3 fl (35.1-43.9); Red Blood Count 5.44 M/mm3 (4.2-5.4); White Blood Count 13.1 K/mm3 (4.4-11.0)
[2020-06-07] MEDS: Insulin Lispro 100 UNIT/ML INSULN.PEN SC ×3 (05:30→23:16)
[2020-06-07 05:32] LABS: ALB/GLOB Ratio 0.4 RATIO (0.9-2.4); AST(SGOT) 80 U/L (15-37); Alanine Aminotransfer ALT/SGPT 108 U/L (13-56); Albumin, Serum 2.3 g/dL (3.2-5.0); Alkaline Phosphatase 129 U/L (45-117); Anion Gap 7 (5-15); BUN 18 mg/dL (7-18); Chloride 98 mmol/L (98-107); Creatinine, Serum 0.58 mg/dL (0.55-1.02); EST Glomerular Filtration Rate 115 mL/min (>60); Est Glom Filt Rate - Afr Amer 139 mL/min (>60); Estimated Creatinine Clearance 99.78 ml/min; Globulin 5.2 g/dL (2.2-4.2); Glucose 162 mg/dL (74-106); Potassium 3.1 mmol/L (3.5-5.1); Protein, Total 7.5 g/dL (6.4-8.2); Sodium Level 138 mmol/L (136-145)
--- NOTE | 2020-06-07 05:35 | PCM.PN.INT ---
Subjective: The patient was seen and examined at the bedside this morning. Events from the last 24 hours have been reviewed. The patient currently has a low-grade fever. The patient did have issues yesterday afternoon with agitation, despite being on high doses of propofol and fentanyl, along with scheduled Seroquel. She remains on low-dose Levophed to maintain hemodynamic stability. Potassium is low this morning at 3.1 with a stable creatinine. The patient diuresed well on scheduled Lasix yesterday and is currently documented to be overall net +10.2 L for the hospital admission. The patient is currently tolerating tube feeds. Objective: The patient's most recent lab work, culture data and imaging studies have all been personally reviewed. Coronavirus PCR was positive on May 22. Urine culture was positive for presumptive E. coli. Sputum culture was positive for MRSA. General: - - Intubated, sedated and mechanically ventilated. HEENT: Atraumatic, PERRLA, Normocephalic Oral: No Gingival or Mucosal Lesions/ Ulcerations, - - Endotracheal and OG tubes remain in place. Neck: Supple, No Nodes, Trachea Midline Lungs: No rhonchi, No wheeze, No rales, Diminished Cardiovascular: Normal S1, Normal S2, No murmurs, Tachycardic Abdomen: Bowel Sounds Present, Soft, Non Tender, Obese Extremities: No clubbing, No cyanosis, Cool, - - Trace pedal edema noted. Skin: No breakdown Musculoskeletal: No Tenderness to Palpation of Joints or Extremities Lymphatic: No Cervical, Supraclavicular, or Inguinal Adenopathy Neurological: - - No focal neurological deficits. Moves all extremities spontaneously. Psych/Mental Status: - - Intermittently agitated and restless. Vital Signs Temp Pulse Resp BP Pulse Ox 100.5 F H 101 H 21 H 111/51 L 89 06/07/20 00:00 06/07/20 04:50 06/07/20 04:50 06/07/20 02:29 06/07/20 04:50 Oxygen Flow Rate (L/min) 8 Oxygen Delivery Method Mechanical Ventilator Weight: 192 lb 0.362 oz Body Mass Index (BMI) 28.7 Finger Stick Blood Glucose 377 Intake and Output for Last 24 Hours 06/05/20 06/06/20 06/07/20 23:59 23:59 23:59 Intake Total 5054.94 / 5120.17 3232.48 / 3232.48 224.92 / 224.92 Output Total 3310 / 3310 6800 / 6800 175 / 175 Balance 1744.94 / 1810.17 -3567.52 / -3567.52 49.92 / 49.92 Labs (Last 48 Hours) 06/05/20 06/05/20 06/05/20 12:04 16:58 23:08 WBC Corrected WBC RBC Hgb Hct MCV MCH MCHC RDW Std Deviation RDW Coeff of Osorio Plt Count MPV Immature Gran % (Auto) Neut % (Auto) Lymph % (Auto) [place] % (Auto) Eos % (Auto) Baso % (Auto) Absolute Neuts (auto) Absolute Lymphs (auto) Total Counted Neutrophils % (Manual) Band Neutrophils % Lymphocytes % (Manual) Monocytes % (Manual) Eosinophils % (Manual) Basophils % (Manual) Metamyelocytes % Myelocytes % Promyelocytes % Blast Cells % Plasma Cell % (Manual) Other Cells % Nucleated RBC % Nucleated RBCs/100 WBC Differential Comment Diff Path Review Hypersegmented Neuts Atypical Lymphocytes Reactive Lymphocytes Smudge Cells Toxic Granulation Toxic Vacuolation Dohle Bodies Melida Rods Platelet Estimate Plt Morphology Comment RBC Morphology Polychromasia Hypochromasia Poikilocytosis Basophilic Stippling Anisocytosis Microcytosis Macrocytosis Spherocytes Sickle Cells Target Cells Tear Drop Cells Ovalocytes Stomatocytes [place] Bodies [place] Cells Bite Cells Crenated Cell Acanthocytes (Spur) Rouleaux Schistocytes Sodium Potassium Chloride Carbon Dioxide Anion Gap BUN Creatinine Estim Creat Clear Calc Est GFR (MDRD) Af Amer Est GFR (MDRD) Non-Af BUN/Creatinine Ratio Glucose Calcium Total Bilirubin AST ALT Alkaline Phosphatase Total Protein Albumin Globulin Albumin/Globulin Ratio Vancomycin Trough POC Glucose 160 H 231 H 220 H 06/06/20 06/06/20 06/06/20 03:40 03:40 03:40 WBC Cancelled Corrected WBC Cancelled RBC Cancelled Hgb Cancelled Hct Cancelled MCV Cancelled MCH Cancelled MCHC Cancelled RDW Std Deviation Cancelled RDW Coeff of Osorio Cancelled Plt Count Cancelled MPV Cancelled Immature Gran % (Auto) Cancelled Neut % (Auto) Cancelled Lymph % (Auto) Cancelled [place] % (Auto) Cancelled Eos % (Auto) Cancelled Baso % (Auto) Cancelled Absolute Neuts (auto) Cancelled Absolute Lymphs (auto) Cancelled Total Counted Cancelled Neutrophils % (Manual) Cancelled Band Neutrophils % Cancelled Lymphocytes % (Manual) Cancelled Monocytes % (Manual) Cancelled Eosinophils % (Manual) Cancelled Basophils % (Manual) Cancelled Metamyelocytes % Cancelled Myelocytes % Cancelled Promyelocytes % Cancelled Blast Cells % Cancelled Plasma Cell % (Manual) Cancelled Other Cells % Cancelled Nucleated RBC % Cancelled Nucleated RBCs/100 WBC Cancelled Differential Comment Cancelled Diff Path Review Cancelled Hypersegmented Neuts Cancelled Atypical Lymphocytes Cancelled Reactive Lymphocytes Cancelled Smudge Cells Cancelled Toxic Granulation Cancelled Toxic Vacuolation Cancelled Dohle Bodies Cancelled Melida Rods Cancelled Platelet Estimate Cancelled Plt Morphology Comment Cancelled RBC Morphology Cancelled Polychromasia Cancelled Hypochromasia Cancelled Poikilocytosis Cancelled Basophilic Stippling Cancelled Anisocytosis Cancelled Microcytosis Cancelled Macrocytosis Cancelled Spherocytes Cancelled Sickle Cells Cancelled Target Cells Cancelled Tear Drop Cells Cancelled Ovalocytes Cancelled Stomatocytes Cancelled [place] Bodies Cancelled [place] Cells Cancelled Bite Cells Cancelled Crenated Cell Cancelled Acanthocytes (Spur) Cancelled Rouleaux Cancelled Schistocytes Cancelled Sodium Cancelled Potassium Cancelled Chloride Cancelled Carbon Dioxide Cancelled Anion Gap Cancelled BUN Cancelled Creatinine Cancelled Estim Creat Clear Calc Cancelled Est GFR (MDRD) Af Amer Cancelled Est GFR (MDRD) Non-Af Cancelled BUN/Creatinine Ratio Cancelled Glucose Cancelled Calcium Cancelled Total Bilirubin Cancelled AST Cancelled ALT Cancelled Alkaline Phosphatase Cancelled Total Protein Cancelled Albumin Cancelled Globulin Cancelled Albumin/Globulin Ratio Cancelled Vancomycin Trough Cancelled POC Glucose 06/06/20 06/06/20 06/06/20 04:40 04:40 04:40 WBC 13.4 H Corrected WBC RBC 3.90 L Hgb 10.8 L Hct 35.7 L MCV 91.5 D MCH 27.7 MCHC 30.3 L D RDW Std Deviation 45.5 H RDW Coeff of Osorio 13.5 Plt Count 249 MPV 10.2 Immature Gran % (Auto) 4.300 H Neut % (Auto) 66.4 Lymph % (Auto) 22.3 [place] % (Auto) 5.8 Eos % (Auto) 1.0 Baso % (Auto) 0.2 Absolute Neuts (auto) 8.9 H Absolute Lymphs (auto) 2.98 Total Counted Neutrophils % (Manual) Band Neutrophils % Lymphocytes % (Manual) Monocytes % (Manual) Eosinophils % (Manual) Basophils % (Manual) Metamyelocytes % Myelocytes % Promyelocytes % Blast Cells % Plasma Cell % (Manual) Other Cells % Nucleated RBC % 0 Nucleated RBCs/100 WBC Differential Comment Diff Path Review Hypersegmented Neuts Atypical Lymphocytes Reactive Lymphocytes Smudge Cells Toxic Granulation Toxic Vacuolation Dohle Bodies Melida Rods Platelet Estimate Plt Morphology Comment RBC Morphology Polychromasia Hypochromasia Poikilocytosis Basophilic Stippling Anisocytosis Microcytosis Macrocytosis Spherocytes Sickle Cells Target Cells Tear Drop Cells Ovalocytes Stomatocytes [place] Bodies Domo Cells Bite Cells Crenated Cell Acanthocytes (Spur) Rouleaux Schistocytes Sodium 140 Potassium 3.4 L Chloride 103 Carbon Dioxide 34.0 H Anion Gap 3 L BUN 14 Creatinine 0.38 L Estim Creat Clear Calc 152.29 Est GFR (MDRD) Af Amer 230 Est GFR (MDRD) Non-Af 190 BUN/Creatinine Ratio 37.2 H Glucose 123 H Calcium 8.1 L Total Bilirubin 0.50 AST 52 H ALT 74 H Alkaline Phosphatase 114 Total Protein 6.0 L Albumin 1.8 L Globulin 4.2 Albumin/Globulin Ratio 0.4 L Vancomycin Trough 25.5 H POC Glucose 06/06/20 06/06/20 06/06/20 05:18 12:43 17:05 WBC Corrected WBC RBC Hgb Hct MCV MCH MCHC RDW Std Deviation RDW Coeff of Osorio Plt Count MPV Immature Gran % (Auto) Neut % (Auto) Lymph % (Auto) [place] % (Auto) Eos % (Auto) Baso % (Auto) Absolute Neuts (auto) Absolute Lymphs (auto) Total Counted Neutrophils % (Manual) Band Neutrophils % Lymphocytes % (Manual) Monocytes % (Manual) Eosinophils % (Manual) Basophils % (Manual) Metamyelocytes % Myelocytes % Promyelocytes % Blast Cells % Plasma Cell % (Manual) Other Cells % Nucleated RBC % Nucleated RBCs/100 WBC Differential Comment Diff Path Review Hypersegmented Neuts Atypical Lymphocytes Reactive Lymphocytes Smudge Cells Toxic Granulation Toxic Vacuolation Dohle Bodies Melida Rods Platelet Estimate Plt Morphology Comment RBC Morphology Polychromasia Hypochromasia Poikilocytosis Basophilic Stippling Anisocytosis Microcytosis Macrocytosis Spherocytes Sickle Cells Target Cells Tear Drop Cells Ovalocytes Stomatocytes [place] Bodies Domo Cells Bite Cells Crenated Cell Acanthocytes (Spur) Rouleaux Schistocytes Sodium Potassium Chloride Carbon Dioxide Anion Gap BUN Creatinine Estim Creat Clear Calc Est GFR (MDRD) Af Amer Est GFR (MDRD) Non-Af BUN/Creatinine Ratio Glucose Calcium Total Bilirubin AST ALT Alkaline Phosphatase Total Protein Albumin Globulin Albumin/Globulin Ratio Vancomycin Trough POC Glucose 128 H 173 H 231 H 06/06/20 06/06/20 06/07/20 22:22 23:12 05:00 WBC 13.1 H Corrected WBC RBC 5.44 H Hgb 15.3 H Hct 50.5 H MCV 92.8 MCH 28.1 MCHC 30.3 L RDW Std Deviation 46.3 H RDW Coeff of Osorio 13.8 Plt Count 218 MPV 10.7 Immature Gran % (Auto) 2.800 H Neut % (Auto) 63.4 Lymph % (Auto) 27.5 [place] % (Auto) 5.0 Eos % (Auto) 0.8 Baso % (Auto) 0.5 Absolute Neuts (auto) 8.3 H Absolute Lymphs (auto) 3.61 Total Counted Neutrophils % (Manual) Band Neutrophils % Lymphocytes % (Manual) Monocytes % (Manual) Eosinophils % (Manual) Basophils % (Manual) Metamyelocytes % Myelocytes % Promyelocytes % Blast Cells % Plasma Cell % (Manual) Other Cells % Nucleated RBC % 0.2 Nucleated RBCs/100 WBC Differential Comment Diff Path Review Hypersegmented Neuts Atypical Lymphocytes Reactive Lymphocytes Smudge Cells Toxic Granulation Toxic Vacuolation Dohle Bodies Melida Rods Platelet Estimate Plt Morphology Comment RBC Morphology Polychromasia Hypochromasia Poikilocytosis Basophilic Stippling Anisocytosis Microcytosis Macrocytosis Spherocytes Sickle Cells Target Cells Tear Drop Cells Ovalocytes Stomatocytes [place] Bodies [place] Cells Bite Cells Crenated Cell Acanthocytes (Spur) Rouleaux Schistocytes Sodium Potassium Chloride Carbon Dioxide Anion Gap BUN Creatinine Estim Creat Clear Calc Est GFR (MDRD) Af Amer Est GFR (MDRD) Non-Af BUN/Creatinine Ratio Glucose Calcium Total Bilirubin AST ALT Alkaline Phosphatase Total Protein Albumin Globulin Albumin/Globulin Ratio Vancomycin Trough POC Glucose 198 H 209 H 06/07/20 05:00 WBC Corrected WBC RBC Hgb Hct MCV MCH MCHC RDW Std Deviation RDW Coeff of Osorio Plt Count MPV Immature Gran % (Auto) Neut % (Auto) Lymph % (Auto) [place] % (Auto) Eos % (Auto) Baso % (Auto) Absolute Neuts (auto) Absolute Lymphs (auto) Total Counted Neutrophils % (Manual) Band Neutrophils % Lymphocytes % (Manual) Monocytes % (Manual) Eosinophils % (Manual) Basophils % (Manual) Metamyelocytes % Myelocytes % Promyelocytes % Blast Cells % Plasma Cell % (Manual) Other Cells % Nucleated RBC % Nucleated RBCs/100 WBC Differential Comment Diff Path Review Hypersegmented Neuts Atypical Lymphocytes Reactive Lymphocytes Smudge Cells Toxic Granulation Toxic Vacuolation Dohle Bodies Melida Rods Platelet Estimate Plt Morphology Comment RBC Morphology Polychromasia Hypochromasia Poikilocytosis Basophilic Stippling Anisocytosis Microcytosis Macrocytosis Spherocytes Sickle Cells Target Cells Tear Drop Cells Ovalocytes Stomatocytes [place] Bodies Domo Cells Bite Cells Crenated Cell Acanthocytes (Spur) Rouleaux Schistocytes Sodium 138 Potassium 3.1 L Chloride 98 Carbon Dioxide 33.0 H Anion Gap 7 BUN 18 Creatinine 0.58 Estim Creat Clear Calc 99.78 Est GFR (MDRD) Af Amer 139 Est GFR (MDRD) Non-Af 115 BUN/Creatinine Ratio 31.0 H Glucose 162 H Calcium 9.0 Total Bilirubin 0.60 AST 80 H ALT 108 H Alkaline Phosphatase 129 H Total Protein 7.5 Albumin 2.3 L Globulin 5.2 H Albumin/Globulin Ratio 0.4 L Vancomycin Trough POC Glucose Clinical Impression(s) from Imaging Studies Chest X-Ray 05/26/20 03:41 IMPRESSION: Multifocal pneumonia to include viral pneumonia. Electronically Signed: Forrest Cee MD at 4:28 EST , Service support , Chest CTA 05/26/20 04:23 IMPRESSION: No pulmonary embolus or thoracic aortic dissection. Diffuse groundglass opacities compatible with multifocal pneumonia very suggestive of viral pneumonia. Multiple small mediastinal lymph nodes. Electronically Signed: Forrest Cee MD at 5:18 EST , Service support , Chest X-Ray 05/28/20 04:38 IMPRESSION: GA confluent airspace disease likely pneumonia multilobular and bilateral. Aeration has worsened. Electronically Signed: Nighat Neal MD at 5:48 EST , Service support , Chest X-Ray 05/28/20 19:20 IMPRESSION: 1. Tubes and catheters as described. 2. Bilateral lower lobe pulmonary infiltrates unchanged from prior exam. Electronically Signed: Xavier Beach DO at 19:57 EST Tel [phone], Service support , KUB X-Ray 05/28/20 19:20 IMPRESSION: 1. OG tube as described. 2. No acute intra-abdominal process. 3. Persistent bibasilar infiltrates. Electronically Signed: Xavier [place] DO at 19:52 EST Tel [phone], Service support , Chest X-Ray 05/31/20 08:37 IMPRESSION: All the support tubes are in good position. Residual bilateral pulmonary infiltrates although there has been a mild degree of improvement as compared to prior study. Electronically Signed: Mauricio Sifuentes, at 9:14 EST , Service support , Chest X-Ray 05/31/20 19:30 IMPRESSION: Endotracheal tube at the right main bronchus. Worsening bilateral edema or pneumonia. Electronically Signed: Johny Calderon MD at 21:23 EST , Service support , ADDENDUM: 05/31/208 IMPRESSION: Endotracheal tube at the right main bronchus. Worsening bilateral edema or pneumonia. N.B. : Tina Hicks RN , RN, confirmed on 05/31/2020 21:31:35 (ET) that the healthcare facility has received the radiology report. Electronically Signed: Johny Calderon MD at 21:23 EST , Service support , KUB X-Ray 05/31/20 20:40 IMPRESSION: Gastric tube with tip in the body. Electronically Signed: Verona Esparza, at 21:13 EST Tel , Service support , Chest X-Ray 06/05/20 07:25 IMPRESSION: Lines and tubes as above with continued diffuse similar patchy airspace disease throughout the lung parenchyma. Electronically Signed: Carroll Lamb DO at 10:00 EST , Service support , Medical Necessity - Tobacco Use Smoking Status: Former smoker Assessment/Plan All Active Problems (This Medical Record has been edited. Action required.) Pneumonia due to COVID-19 virus (Acute) Respiratory insufficiency (Acute) SARS (severe acute respiratory syndrome) (Acute) RECOMMENDATIONS: 1. Continue to wean FiO2 and PEEP to maintain oxygen saturations at or above 90%. 2. Wean Levophed to maintain a mean arterial pressure at or above 65 mmHg. 3. Continue antimicrobials as ordered. 4. Continue therapeutic Lovenox as ordered. 5. Continue Lantus and sliding scale insulin coverage. 6. Continue tube feeds as tolerated. 7. Continue IV Lasix as tolerated by hemodynamics and renal function. 8. Potassium repletion as ordered. Start scheduled potassium as well. IMPRESSIONS: 1. Acute hypoxemic respiratory failure secondary to COVID-19 pneumonia The patient continued to decompensate from a respiratory perspective following admission, eventually requiring ICU transfer and subsequent intubation on May 28. The patient has completed a treatment course of remdesivir and will remain on Decadron. Given MRSA identified on sputum culture, antimicrobials will be continued. Continue to wean FiO2 and PEEP to maintain oxygen saturations at or above 90%. Continue tube feeds as tolerated. Given the patient's overall net positive fluid status, will again attempt to diurese the patient as tolerated by hemodynamics and renal function. 2. Septic shock Continue current supportive measures including vasopressor support to maintain a mean arterial pressure at or above 65 mmHg. Continue antimicrobials per ID recommendations. 3. Acute kidney injury Improved. Likely prerenal in etiology with component of ischemic ATN in the setting of #2. Continue current supportive measures including vasopressor support to maintain hemodynamic stability. Continue to monitor urine output. No current indication for renal replacement therapy. 4. Hypokalemia Electrolyte repletion as ordered. Recheck levels in the morning. Start scheduled potassium repletion today as well. 5. Poorly controlled diabetes mellitus Continue Lantus and sliding scale insulin coverage. 6. Obesity/GERD Complicates care, management, recovery and prognosis. Physical therapy to work with the patient once respiratory status has improved. TIME: 35 minutes of critical care time, independent of procedures, was spent addressing the patient's acute hypoxemic respiratory failure, COVID-19 pneumonia, septic shock, acute kidney injury, diabetes mellitus, review of all data and collaboration with the care team. ([id number]) [id number] Critical care first hour
[2020-06-07 06:25] LABS: Bedside Glucose 154 mg/dL (70-110)
[2020-06-07] MEDS: Enoxaparin 100 MG/ML Syringe 90 MG SC ×2 (09:05→18:06)
[2020-06-07] MEDS: Famotidine 200 MG/20 ML MDV 20 MG in 0.9% Normal Saline (Pres. free 8 ML 300 MG IV ×2 (09:06→23:16)
[2020-06-07] MEDS: dexAMETHasone 4 MG Tablet 6 MG PO (09:07)
[2020-06-07] MEDS: QUEtiapine 100 MG Tablet GT ×2 (09:07→23:16)
[2020-06-07] MEDS: Furosemide 100 MG/10 ML Vial 80 MG IV ×2 (09:07→18:06)
[2020-06-07] MEDS: Chlorhexidine 15 ML PO ×2 (09:08→20:04)
[2020-06-07] MEDS: Nystatin Powder 15gm Bottle 1 APPLIC TOPICAL ×2 (09:08→23:15)
[2020-06-07] MEDS: Menthol/Lanolin/Calamine/Znox 113 GM Tube 1 APPLIC TOPICAL ×2 (09:08→23:14)
[2020-06-07] MEDS: 0.9% Saline Lock 10 ML Syringe IV ×2 (09:11→23:19)
[2020-06-07] MEDS: Docusate Sodium 100 MG/10 ML UDC PO ×2 (10:49→23:14)
[2020-06-07 11:21] LABS: CPK Total, Creatine Kinase 38 U/L (26-192); Triglycerides 375 mg/dL
[2020-06-07] MEDS: Vital AF 1.2 Cal Liquid 1,000 ML 60 ML GT ×2 (11:25→20:02)
[2020-06-07 12:20] LABS: Bedside Glucose 106 mg/dL (70-110)
[2020-06-07] MEDS: Propofol 10MG/Ml 1,000 MG/100 ML Bottle 26.2 MG CONT INF ×3 (12:20→20:04)
--- NOTE | 2020-06-07 13:31 | PN_ITS ---
Patient Problems: Active and Suspected Problems (This Medical Record has been edited. Action required.) Pneumonia due to COVID-19 virus (Acute) Respiratory insufficiency (Acute) SARS (severe acute respiratory syndrome) (Acute) Reason for Visit: COVID 19 Subjective: Still agitated despite sedation. Vitals/I&O's: Vital Signs Temp Pulse Resp BP Pulse Ox 38.3 C H 82 17 88/47 L 96 06/07/20 12:00 06/07/20 12:00 06/07/20 12:00 06/07/20 12:00 06/07/20 12:00 Oxygen Flow Rate (L/min) 8 Oxygen Delivery Method Mechanical Ventilator Weight: 87.1 kg Body Mass Index (BMI) 28.7 Finger Stick Blood Glucose 377 Intake and Output for Last 24 Hours 06/05/20 06/06/20 06/07/20 23:59 23:59 23:59 Intake Total 5054.94 / 5120.17 3235.13 / 3235.13 1396.21 / 1396.21 Output Total 3310 / 3310 6800 / 6800 1974 / 1974 Balance 1744.94 / 1810.17 -3564.87 / -3564.87 -578.79 / -578.79 General: - - intubated and sedated HEENT: Atraumatic, Normocephalic Oral: Moist Mucosa, No Gingival or Mucosal Lesions/ Ulcerations Neck: No Nodes, Thyroid Normal Size and Texture Lungs: Normal air movement, - - coarse breath sound bilaterally. Cardiovascular: Regular rate, Regular Rhythm, Normal S1, Normal S2, No murmurs Abdomen: Bowel Sounds Present, Soft, Non Tender, Non-Distended Extremities: No edema, No Calf Tenderness Skin: No rashes, No breakdown Musculoskeletal: No Tenderness to Palpation of Joints or Extremities, No Muscle Wasting Microbiology Past 72 Hours 06/07/20 10:40 Sputum, Induced/Lukens Gram Stain - Final Laboratory Results 06/06/20 17:05: POC Glucose 231 H 06/06/20 22:22: POC Glucose 198 H 06/06/20 23:12: POC Glucose 209 H 06/07/20 05:00: WBC 13.1 H, RBC 5.44 H, Hgb 15.3 H, Hct 50.5 H, MCV 92.8, MCH 28.1, MCHC 30.3 L, RDW Std Deviation 46.3 H, RDW Coeff of Osorio 13.8, Plt Count 218, MPV 10.7, Immature Gran % (Auto) 2.800 H, Neut % (Auto) 63.4, Lymph % (Auto) 27.5, [place] % (Auto) 5.0, Eos % (Auto) 0.8, Baso % (Auto) 0.5, Absolute Neuts (auto) 8.3 H, Absolute Lymphs (auto) 3.61, Nucleated RBC % 0.2 06/07/20 05:00: Sodium 138, Potassium 3.1 L, Chloride 98, Carbon Dioxide 33.0 H, Anion Gap 7, BUN 18, Creatinine 0.58, Estim Creat Clear Calc 99.78, Est GFR (MDRD) Af Amer 139, Est GFR (MDRD) Non-Af 115, BUN/Creatinine Ratio 31.0 H, Glucose 162 H, Calcium 9.0, Total Bilirubin 0.60, AST 80 H, ALT 108 H, Alkaline Phosphatase 129 H, Total Protein 7.5, Albumin 2.3 L, Globulin 5.2 H, Albumin/Globulin Ratio 0.4 L 06/07/20 05:00: Total Creatine Kinase 38, Triglycerides 375 H 06/07/20 05:25: POC Glucose 154 H 06/07/20 12:13: POC Glucose 106 Current Medications Albuterol Sulfate (Albuterol Ih 8.5 Gm (Proair) Inhaler (200 Puffs)) 2 puff INHALATION Q4H PRN PRN PRN Reason: SOB/WHEEZING Albuterol Sulfate (Albuterol 2.5 Mg/3 Ml Vial.Neb.) 2.5 mg INHALATION Q2H PRN PRN PRN Reason: dyspnea, wheezing Last Admin: 05/31/20 07:45 Dose: 2.5 mg Documented by: Calamine/Phenol (Menthol/Lanolin/Calamine/Znox 113 Gm Tube) 1 applic TOPICAL BID [facility]; Protocol Last Admin: 06/07/20 09:08 Dose: 1 applic Documented by: Chlorhexidine Gluconate (Chlorhexidine 15 Ml) 15 ml PO BID [facility] Last Admin: 06/07/20 09:08 Dose: 15 ml Documented by: Dexamethasone (Dexamethasone 4 Mg Tablet) 6 mg PO DAILY [facility] Last Admin: 06/07/20 09:07 Dose: 6 mg Documented by: Dextrose (Dextrose 50%-Water 25 Gm/50 Ml Disp.Syrin) 0 gm IV X1 PRN; Protocol PRN Reason: Hypoglycemia Docusate Sodium (Docusate Sodium 100 Mg/10 Ml Udc) 100 mg PO BID [facility] Last Admin: 06/07/20 10:49 Dose: 100 mg Documented by: Enoxaparin Sodium (Enoxaparin 100 Mg/Ml Syringe) 90 mg SC Q12@0600,1800 [facility] Last Admin: 06/07/20 09:05 Dose: 90 mg Documented by: Furosemide (Furosemide 100 Mg/10 Ml Vial) 80 mg IV BID@1000,1700 [facility] Last Admin: 06/07/20 09:07 Dose: 80 mg Documented by: Glucagon (Glucagon 1 Mg/Ml Syringe) 1 mg IM .X1 PRN PRN Reason: Hypoglycemia Sodium Chloride () 250 mls @ 15 mls/hr IV .[id number] PRN PRN Reason: Saline Flush Last Infusion: 06/06/20 04:06 Dose: 0 mls/hr Documented by: Sodium Chloride () 250 mls @ 15 mls/hr IV .[id number] PRN PRN Reason: Additional IVPB Infusion Famotidine 20 mg/ Sodium (Chloride) 10 mls @ 300 mls/hr IV Q12 [facility] Last Infusion: 06/07/20 10:51 Dose: Infused Documented by: Fentanyl Citrate 1,000 mcg/ (Sodium Chloride) 100 mls @ 5 mls/hr CONT INF .Q20H [facility]; Protocol Last Admin: 06/07/20 08:00 Dose: 200 mcg/hr, 20 mls/hr Documented by: Norepinephrine Bitartrate 8 mg (/ Sodium Chloride) 250 mls @ 9.375 mls/hr CONT INF .[id number] [facility]; Protocol Last Titration: 06/07/20 05:45 Dose: Infused Documented by: Enteral Nutritional Formula (Vital Af 1.2 Rick Liquid) 1,000 mls @ 60 mls/hr GT .[id number] [facility] Last Admin: 06/07/20 11:25 Dose: 60 mls/hr Documented by: Piperacillin Sod/Tazobactam (Sod 3.375 gm/ Sodium Chloride) 50 mls @ 12.5 mls/hr IV Q8 [facility] Last Infusion: 06/07/20 11:23 Dose: Infused Documented by: Propofol (Diprivan) 1,000 mg in 100 mls @ 5.244 mls/hr CONT INF .Q12H [facility]; Protocol Last Titration: 06/07/20 13:00 Dose: 50 mcg/kg/min, 26.2 mls/hr Documented by: Vancomycin IV Pharmacy to Dose (1 ea/ Sodium Chloride) 500 mls @ 250 mls/hr IV X1 PRN; Protocol PRN Reason: Rx to Dose Vancomycin HCl 2,000 mg/ (Sodium Chloride) 540 mls @ 250 mls/hr IV Q12H [facility] Last Infusion: 06/07/20 06:49 Dose: Infused Documented by: Dexmedetomidine HCl 400 mcg/ (Sodium Chloride) 100 mls @ 10.888 mls/hr CONT INF .Q9H12M [facility]; Protocol Last Admin: 06/07/20 10:40 Dose: 0.5 mcg/kg/hr, 10.9 mls/hr Documented by: Insulin Glargine (Insulin Glargine 100 Units/Ml Pen) 60 units SC BID [facility] Last Admin: 06/07/20 09:05 Dose: 60 u Documented by: Insulin Human Lispro (Insulin Lispro 100 Unit/Ml Insuln.Pen) 0 unit SC Q6H [facility]; Protocol Last Admin: 06/07/20 12:56 Dose: Not Given Documented by: Melatonin (Melatonin 3 Mg Tablet) 3 mg PO QHS PRN PRN PRN Reason: INSOMNIA Nystatin (Nystatin Powder 15gm Bottle) 1 applic TOPICAL BID [facility]; Protocol Last Admin: 06/07/20 09:08 Dose: 1 applic Documented by: Ondansetron HCl (Ondansetron 4 Mg/2 Ml Vial) 4 mg IV Q8H PRN PRN PRN Reason: NAUSEA/VOMITING Polyethylene Glycol (Polyethylene Glycol 3350 17 Gm Packet) 17 gm PO DAILY PRN PRN Reason: Constipation Potassium Chloride (Potassium Chloride 20 Meq Tablet) 40 meq PO BID@1000,1700 [facility] Last Admin: 06/07/20 09:06 Dose: 40 meq Documented by: Quetiapine Fumarate (Quetiapine 100 Mg Tablet) 100 mg GT BID [facility] Last Admin: 06/07/20 09:07 Dose: 100 mg Documented by: Sodium Chloride (0.9% Saline Lock 10 Ml Syringe) 10 - 40 ml IV UD PRN PRN Reason: SALINE FLUSH Last Admin: 06/07/20 09:11 Dose: 20 ml Documented by: STROKE Vital Signs/Narrative: Vital Signs Temp Pulse Resp BP Pulse Ox 06/07/20 12:00 38.3 C H 82 17 88/47 L 96 06/07/20 11:00 38.7 C H 93 20 H 87/47 L 95 06/07/20 10:00 38.7 C H 94 22 H 87/43 L 88 Medical Necessity - Tobacco Use Smoking Status: Former smoker Assessment/Plan All Active Problems (This Medical Record has been edited. Action required.) Pneumonia due to COVID-19 virus (Acute) Respiratory insufficiency (Acute) SARS (severe acute respiratory syndrome) (Acute) 1. acute hypoxic respiratory failure * 2/2 COVID 19 pneumonia/ALI * on vent 60% FiO2 2. acute COVID 19 pneumonia * completed dexa and rem-d 3. Agitation * ongoing * on dexmedetomidine, propofol, fentanyl and quetiapine * ?ICANS/YONY? 4. DM2 * fair control * glargine 60 BID + SSI 5. Septic shock * 2/2 COVID 19 and MRSA pneumonia and UTI * on norepi 6. MRSA pneumonia * vancomycin 7. UTI * E. coli, resistance to amp and amp/SB * on pip/tazo 8. VTE prophylaxis: anticoagulation Inpatient E&M: [id number] [facility] Hosp L2
--- NOTE | 2020-06-07 15:16 | PCM.PN.ID ---
Patient Problems: Active and Suspected Problems (This Medical Record has been edited. Action required.) Pneumonia due to COVID-19 virus (Acute) Respiratory insufficiency (Acute) SARS (severe acute respiratory syndrome) (Acute) Subjective: Fever overnight, on vent, pressors - Physical Exam Vitals/I&O's: Vital Signs Temp Pulse Resp BP Pulse Ox 100.4 F H 89 17 88/47 L 93 06/07/20 12:00 06/07/20 13:00 06/07/20 13:00 06/07/20 12:00 06/07/20 13:00 Oxygen Flow Rate (L/min) 8 Oxygen Delivery Method Mechanical Ventilator Weight: 87.1 kg Body Mass Index (BMI) 28.7 Finger Stick Blood Glucose 377 Intake and Output for Last 24 Hours 06/05/20 06/06/20 06/07/20 23:59 23:59 23:59 Intake Total 5054.94 / 5120.17 3235.13 / 3235.13 1484.96 / 1484.96 Output Total 3310 / 3310 6800 / 6800 1974 / 1974 Balance 1744.94 / 1810.17 -3564.87 / -3564.87 -490.04 / -490.04 General: No apparent distress, Non-Cooperative Lungs: Diminished Cardiovascular: Regular rate, Regular Rhythm Abdomen: Soft, Non Tender, Non-Distended Skin: No rashes Microbiology Past 72 Hours 06/07/20 10:40 Sputum, Induced/Lukens Gram Stain - Final Laboratory Results 06/06/20 17:05: POC Glucose 231 H 06/06/20 22:22: POC Glucose 198 H 06/06/20 23:12: POC Glucose 209 H 06/07/20 05:00: WBC 13.1 H, RBC 5.44 H, Hgb 15.3 H, Hct 50.5 H, MCV 92.8, MCH 28.1, MCHC 30.3 L, RDW Std Deviation 46.3 H, RDW Coeff of Osorio 13.8, Plt Count 218, MPV 10.7, Immature Gran % (Auto) 2.800 H, Neut % (Auto) 63.4, Lymph % (Auto) 27.5, [place] % (Auto) 5.0, Eos % (Auto) 0.8, Baso % (Auto) 0.5, Absolute Neuts (auto) 8.3 H, Absolute Lymphs (auto) 3.61, Nucleated RBC % 0.2 06/07/20 05:00: Sodium 138, Potassium 3.1 L, Chloride 98, Carbon Dioxide 33.0 H, Anion Gap 7, BUN 18, Creatinine 0.58, Estim Creat Clear Calc 99.78, Est GFR (MDRD) Af Amer 139, Est GFR (MDRD) Non-Af 115, BUN/Creatinine Ratio 31.0 H, Glucose 162 H, Calcium 9.0, Total Bilirubin 0.60, AST 80 H, ALT 108 H, Alkaline Phosphatase 129 H, Total Protein 7.5, Albumin 2.3 L, Globulin 5.2 H, Albumin/Globulin Ratio 0.4 L 06/07/20 05:00: Total Creatine Kinase 38, Triglycerides 375 H 06/07/20 05:25: POC Glucose 154 H 06/07/20 12:13: POC Glucose 106 Current Medications Albuterol Sulfate (Albuterol Ih 8.5 Gm (Proair) Inhaler (200 Puffs)) 2 puff INHALATION Q4H PRN PRN PRN Reason: SOB/WHEEZING Albuterol Sulfate (Albuterol 2.5 Mg/3 Ml Vial.Neb.) 2.5 mg INHALATION Q2H PRN PRN PRN Reason: dyspnea, wheezing Last Admin: 05/31/20 07:45 Dose: 2.5 mg Documented by: Calamine/Phenol (Menthol/Lanolin/Calamine/Znox 113 Gm Tube) 1 applic TOPICAL BID [facility]; Protocol Last Admin: 06/07/20 09:08 Dose: 1 applic Documented by: Chlorhexidine Gluconate (Chlorhexidine 15 Ml) 15 ml PO BID [facility] Last Admin: 06/07/20 09:08 Dose: 15 ml Documented by: Dexamethasone (Dexamethasone 4 Mg Tablet) 6 mg PO DAILY [facility] Last Admin: 06/07/20 09:07 Dose: 6 mg Documented by: Dextrose (Dextrose 50%-Water 25 Gm/50 Ml Disp.Syrin) 0 gm IV X1 PRN; Protocol PRN Reason: Hypoglycemia Docusate Sodium (Docusate Sodium 100 Mg/10 Ml Udc) 100 mg PO BID [facility] Last Admin: 06/07/20 10:49 Dose: 100 mg Documented by: Enoxaparin Sodium (Enoxaparin 100 Mg/Ml Syringe) 90 mg SC Q12@0600,1800 [facility] Last Admin: 06/07/20 09:05 Dose: 90 mg Documented by: Furosemide (Furosemide 100 Mg/10 Ml Vial) 80 mg IV BID@1000,1700 [facility] Last Admin: 06/07/20 09:07 Dose: 80 mg Documented by: Glucagon (Glucagon 1 Mg/Ml Syringe) 1 mg IM .X1 PRN PRN Reason: Hypoglycemia Sodium Chloride () 250 mls @ 15 mls/hr IV .[id number] PRN PRN Reason: Saline Flush Last Infusion: 06/06/20 04:06 Dose: 0 mls/hr Documented by: Sodium Chloride () 250 mls @ 15 mls/hr IV .[id number] PRN PRN Reason: Additional IVPB Infusion Famotidine 20 mg/ Sodium (Chloride) 10 mls @ 300 mls/hr IV Q12 [facility] Last Infusion: 06/07/20 10:51 Dose: Infused Documented by: Fentanyl Citrate 1,000 mcg/ (Sodium Chloride) 100 mls @ 5 mls/hr CONT INF .Q20H [facility]; Protocol Last Titration: 06/07/20 12:30 Dose: 175 mcg/hr, 17.5 mls/hr Documented by: Norepinephrine Bitartrate 8 mg (/ Sodium Chloride) 250 mls @ 9.375 mls/hr CONT INF .[id number] [facility]; Protocol Last Admin: 06/07/20 10:00 Dose: 1.07 mcg/min, 2 mls/hr Documented by: Enteral Nutritional Formula (Vital Af 1.2 Rick Liquid) 1,000 mls @ 60 mls/hr GT .[id number] [facility] Last Admin: 06/07/20 11:25 Dose: 60 mls/hr Documented by: Piperacillin Sod/Tazobactam (Sod 3.375 gm/ Sodium Chloride) 50 mls @ 12.5 mls/hr IV Q8 [facility] Last Infusion: 06/07/20 11:23 Dose: Infused Documented by: Propofol (Diprivan) 1,000 mg in 100 mls @ 5.244 mls/hr CONT INF .Q12H [facility]; Protocol Last Titration: 06/07/20 13:00 Dose: 50 mcg/kg/min, 26.2 mls/hr Documented by: Vancomycin IV Pharmacy to Dose (1 ea/ Sodium Chloride) 500 mls @ 250 mls/hr IV X1 PRN; Protocol PRN Reason: Rx to Dose Vancomycin HCl 2,000 mg/ (Sodium Chloride) 540 mls @ 250 mls/hr IV Q12H [facility] Last Infusion: 06/07/20 06:49 Dose: Infused Documented by: Dexmedetomidine HCl 400 mcg/ (Sodium Chloride) 100 mls @ 10.888 mls/hr CONT INF .Q9H12M [facility]; Protocol Last Admin: 06/07/20 10:40 Dose: 0.5 mcg/kg/hr, 10.9 mls/hr Documented by: Insulin Glargine (Insulin Glargine 100 Units/Ml Pen) 60 units SC BID [facility] Last Admin: 06/07/20 09:05 Dose: 60 u Documented by: Insulin Human Lispro (Insulin Lispro 100 Unit/Ml Insuln.Pen) 0 unit SC Q6H [facility]; Protocol Last Admin: 06/07/20 12:56 Dose: Not Given Documented by: Melatonin (Melatonin 3 Mg Tablet) 3 mg PO QHS PRN PRN PRN Reason: INSOMNIA Nystatin (Nystatin Powder 15gm Bottle) 1 applic TOPICAL BID [facility]; Protocol Last Admin: 06/07/20 09:08 Dose: 1 applic Documented by: Ondansetron HCl (Ondansetron 4 Mg/2 Ml Vial) 4 mg IV Q8H PRN PRN PRN Reason: NAUSEA/VOMITING Polyethylene Glycol (Polyethylene Glycol 3350 17 Gm Packet) 17 gm PO DAILY PRN PRN Reason: Constipation Potassium Chloride (Potassium Chloride 20 Meq Tablet) 40 meq PO BID@1000,1700 [facility] Last Admin: 06/07/20 09:06 Dose: 40 meq Documented by: Quetiapine Fumarate (Quetiapine 100 Mg Tablet) 100 mg GT BID [facility] Last Admin: 06/07/20 09:07 Dose: 100 mg Documented by: Sodium Chloride (0.9% Saline Lock 10 Ml Syringe) 10 - 40 ml IV UD PRN PRN Reason: SALINE FLUSH Last Admin: 06/07/20 09:11 Dose: 20 ml Documented by: Medical Necessity - Tobacco Use Smoking Status: Former smoker Route of nutrition/ use of supplements: [] Nutritional Intake: [] IV Site: [] Cuellar Catheter: [] - Assessment/Plan Antibiotics: [] Assessment/Plan: [] Active and Suspected Problems (This Medical Record has been edited. Action required.) Pneumonia due to COVID-19 virus (Acute) Respiratory insufficiency (Acute) SARS (severe acute respiratory syndrome) (Acute) covid with hypoxia - sx start 05/19. Lactate over 2. Mild rise in ALT. Pulm is seeing. D-dimer was 0.9, CT neg for PE, on lovenox 40mg bid. Cont dex, completed remdesivir. Fever again last night, on vent, pressors. Ucx with ecoli. Sputum now with MRSA. 06/02 started vanc. Also on zosyn. Will follow
[2020-06-07 17:40] LABS: Bedside Glucose 152 mg/dL (70-110)
[2020-06-08] VITALS (44 sets, daily range): BP systolic 80–165; BP diastolic 45–95; PULSE 54–112; RESP 14–31; TEMP 36.8–37.9; O2SAT 87–98
[2020-06-08 00:40] LABS: Bedside Glucose 212 mg/dL (70-110)
[2020-06-08] MEDS: Propofol 10MG/Ml 1,000 MG/100 ML Bottle 18.4 MG CONT INF (04:30)
--- NOTE | 2020-06-08 05:32 | PCM.PN.INT ---
Subjective: The patient was seen and examined at the bedside this morning. Events from the last 24 hours have been reviewed. The patient is currently afebrile, hemodynamically stable and maintaining appropriate oxygen saturations on assist control mode of mechanical ventilation with an FiO2 requirement of 40% and PEEP of 8. The patient remains on a significant amount of sedation including Precedex, propofol and fentanyl in an attempt to keep the patient adequately sedated. She also remains on low-dose Levophed to maintain hemodynamic stability. The patient has been tolerating diuresis with IV Lasix. Creatinine is stable. However, potassium is low this morning at 2.9. The patient is currently documented to be overall net +8 L for the hospital admission. Objective: The patient's most recent lab work, culture data and imaging studies have all been personally reviewed. Coronavirus PCR was positive on May 22. Urine culture was positive for presumptive E. coli. Sputum culture was positive for MRSA. General: - - Intubated, sedated and mechanically ventilated. HEENT: Atraumatic, PERRLA, Normocephalic Oral: No Gingival or Mucosal Lesions/ Ulcerations, - - Endotracheal and OG tubes remain in place. Neck: Supple, No Nodes, Trachea Midline Lungs: Diminished Cardiovascular: Regular rate, Regular Rhythm Abdomen: Bowel Sounds Present, Soft, Non Tender, Obese Extremities: No clubbing, No cyanosis, Cool, Edema Skin: No breakdown Musculoskeletal: No Tenderness to Palpation of Joints or Extremities Lymphatic: No Cervical, Supraclavicular, or Inguinal Adenopathy Neurological: - - No focal neurological deficits. Remains sedated on the ventilator. Vital Signs Temp Pulse Resp BP Pulse Ox 99.7 F H 60 18 101/55 L 96 06/08/20 05:00 06/08/20 05:00 06/08/20 05:00 06/08/20 05:00 06/08/20 05:00 Oxygen Flow Rate (L/min) 8 Oxygen Delivery Method Mechanical Ventilator Weight: 176 lb 5.917 oz Body Mass Index (BMI) 28.7 Finger Stick Blood Glucose 377 Intake and Output for Last 24 Hours 06/06/20 06/07/20 06/08/20 23:59 23:59 23:59 Intake Total 3235.13 / 3235.13 2833.11 / 2929.91 446.08 / 446.08 Output Total 6800 / 6800 5325 / 5325 Balance -3564.87 / -3564.87 -2491.89 / -2395.09 446.08 / 446.08 Labs (Last 48 Hours) 06/06/20 06/06/20 06/06/20 05:18 12:43 17:05 WBC RBC Hgb Hct MCV MCH MCHC RDW Std Deviation RDW Coeff of Osorio Plt Count MPV Immature Gran % (Auto) Neut % (Auto) Lymph % (Auto) [place] % (Auto) Eos % (Auto) Baso % (Auto) Absolute Neuts (auto) Absolute Lymphs (auto) Nucleated RBC % Sodium Potassium Chloride Carbon Dioxide Anion Gap BUN Creatinine Estim Creat Clear Calc Est GFR (MDRD) Af Amer Est GFR (MDRD) Non-Af BUN/Creatinine Ratio Glucose Calcium Total Bilirubin AST ALT Alkaline Phosphatase Total Creatine Kinase Total Protein Albumin Globulin Albumin/Globulin Ratio Triglycerides POC Glucose 128 H 173 H 231 H 06/06/20 06/06/20 06/07/20 22:22 23:12 05:00 WBC 13.1 H RBC 5.44 H Hgb 15.3 H Hct 50.5 H MCV 92.8 MCH 28.1 MCHC 30.3 L RDW Std Deviation 46.3 H RDW Coeff of Osorio 13.8 Plt Count 218 MPV 10.7 Immature Gran % (Auto) 2.800 H Neut % (Auto) 63.4 Lymph % (Auto) 27.5 [place] % (Auto) 5.0 Eos % (Auto) 0.8 Baso % (Auto) 0.5 Absolute Neuts (auto) 8.3 H Absolute Lymphs (auto) 3.61 Nucleated RBC % 0.2 Sodium Potassium Chloride Carbon Dioxide Anion Gap BUN Creatinine Estim Creat Clear Calc Est GFR (MDRD) Af Amer Est GFR (MDRD) Non-Af BUN/Creatinine Ratio Glucose Calcium Total Bilirubin AST ALT Alkaline Phosphatase Total Creatine Kinase Total Protein Albumin Globulin Albumin/Globulin Ratio Triglycerides POC Glucose 198 H 209 H 06/07/20 06/07/20 06/07/20 05:00 05:00 05:25 WBC RBC Hgb Hct MCV MCH MCHC RDW Std Deviation RDW Coeff of Osorio Plt Count MPV Immature Gran % (Auto) Neut % (Auto) Lymph % (Auto) [place] % (Auto) Eos % (Auto) Baso % (Auto) Absolute Neuts (auto) Absolute Lymphs (auto) Nucleated RBC % Sodium 138 Potassium 3.1 L Chloride 98 Carbon Dioxide 33.0 H Anion Gap 7 BUN 18 Creatinine 0.58 Estim Creat Clear Calc 99.78 Est GFR (MDRD) Af Amer 139 Est GFR (MDRD) Non-Af 115 BUN/Creatinine Ratio 31.0 H Glucose 162 H Calcium 9.0 Total Bilirubin 0.60 AST 80 H ALT 108 H Alkaline Phosphatase 129 H Total Creatine Kinase 38 Total Protein 7.5 Albumin 2.3 L Globulin 5.2 H Albumin/Globulin Ratio 0.4 L Triglycerides 375 H POC Glucose 154 H 06/07/20 06/07/20 06/07/20 12:13 17:31 23:11 WBC RBC Hgb Hct MCV MCH MCHC RDW Std Deviation RDW Coeff of Osorio Plt Count MPV Immature Gran % (Auto) Neut % (Auto) Lymph % (Auto) [place] % (Auto) Eos % (Auto) Baso % (Auto) Absolute Neuts (auto) Absolute Lymphs (auto) Nucleated RBC % Sodium Potassium Chloride Carbon Dioxide Anion Gap BUN Creatinine Estim Creat Clear Calc Est GFR (MDRD) Af Amer Est GFR (MDRD) Non-Af BUN/Creatinine Ratio Glucose Calcium Total Bilirubin AST ALT Alkaline Phosphatase Total Creatine Kinase Total Protein Albumin Globulin Albumin/Globulin Ratio Triglycerides POC Glucose 106 152 H 212 H Microbiology 06/07/20 10:40 Sputum, Induced/Lukens Gram Stain - Final Clinical Impression(s) from Imaging Studies Chest X-Ray 05/26/20 03:41 IMPRESSION: Multifocal pneumonia to include viral pneumonia. Electronically Signed: Forrest Cee MD at 4:28 EST , Service support , Chest CTA 05/26/20 04:23 IMPRESSION: No pulmonary embolus or thoracic aortic dissection. Diffuse groundglass opacities compatible with multifocal pneumonia very suggestive of viral pneumonia. Multiple small mediastinal lymph nodes. Electronically Signed: Forrest Cee MD at 5:18 EST , Service support , Chest X-Ray 05/28/20 04:38 IMPRESSION: GA confluent airspace disease likely pneumonia multilobular and bilateral. Aeration has worsened. Electronically Signed: Nighat Neal MD at 5:48 EST , Service support , Chest X-Ray 05/28/20 19:20 IMPRESSION: 1. Tubes and catheters as described. 2. Bilateral lower lobe pulmonary infiltrates unchanged from prior exam. Electronically Signed: Xavier Beach DO at 19:57 EST Tel [phone], Service support , KUB X-Ray 05/28/20 19:20 IMPRESSION: 1. OG tube as described. 2. No acute intra-abdominal process. 3. Persistent bibasilar infiltrates. Electronically Signed: Xavier Beach DO at 19:52 EST Tel [phone], Service support , Chest X-Ray 05/31/20 08:37 IMPRESSION: All the support tubes are in good position. Residual bilateral pulmonary infiltrates although there has been a mild degree of improvement as compared to prior study. Electronically Signed: Mauricio Sifuentes at 9:14 EST , Service support , Chest X-Ray 05/31/20 19:30 IMPRESSION: Endotracheal tube at the right main bronchus. Worsening bilateral edema or pneumonia. Electronically Signed: Johny Calderon MD at 21:23 EST , Service support , ADDENDUM: 05/31/20 2138 IMPRESSION: Endotracheal tube at the right main bronchus. Worsening bilateral edema or pneumonia. N.B. : Tina Hicks RN , RN, confirmed on 05/31/2020 21:31:35 (ET) that the healthcare facility has received the radiology report. Electronically Signed: Johny Calderon MD at 21:23 EST , Service support , KUB X-Ray 05/31/20 20:40 IMPRESSION: Gastric tube with tip in the body. Electronically Signed: Verona Esparza, at 21:13 EST Tel , Service support , Chest X-Ray 06/05/20 07:25 IMPRESSION: Lines and tubes as above with continued diffuse similar patchy airspace disease throughout the lung parenchyma. Electronically Signed: Carroll Adonis, DO at 10:00 EST , Service support , Medical Necessity - Tobacco Use Smoking Status: Former smoker Assessment/Plan All Active Problems (This Medical Record has been edited. Action required.) Pneumonia due to COVID-19 virus (Acute) Respiratory insufficiency (Acute) SARS (severe acute respiratory syndrome) (Acute) RECOMMENDATIONS: 1. Once the patient's FiO2 has been weaned to 40%, work on weaning PEEP to 5. 2. Wean Levophed to maintain a mean arterial pressure at or above 65 mmHg. 3. Continue antimicrobials as ordered. 4. Continue therapeutic Lovenox as ordered. 5. Continue Lantus and sliding scale insulin coverage. 6. Continue tube feeds as tolerated. 7. Continue IV Lasix as tolerated by hemodynamics and renal function. 8. Potassium repletion as ordered. 9. Possible spontaneous awakening and breathing trials tomorrow morning. IMPRESSIONS: 1. Acute hypoxemic respiratory failure secondary to COVID-19 pneumonia The patient continued to decompensate from a respiratory perspective following admission, eventually requiring ICU transfer and subsequent intubation on May 28. The patient has completed a treatment course of remdesivir and will remain on Decadron. Given MRSA identified on sputum culture, antimicrobials will be continued. Continue to wean FiO2 and PEEP to maintain oxygen saturations at or above 90%. Continue tube feeds as tolerated. Given the patient's overall net positive fluid status, will continue attempts to diurese the patient as tolerated by hemodynamics and renal function. 2. Septic shock Continue current supportive measures including vasopressor support to maintain a mean arterial pressure at or above 65 mmHg. Continue antimicrobials per ID recommendations. 3. Acute kidney injury Improved. Likely prerenal in etiology with component of ischemic ATN in the setting of #2. Continue current supportive measures including vasopressor support to maintain hemodynamic stability. Continue to monitor urine output. No current indication for renal replacement therapy. 4. Hypokalemia Electrolyte repletion as ordered. Recheck levels in the morning. 5. Poorly controlled diabetes mellitus Continue Lantus and sliding scale insulin coverage. 6. Obesity/GERD Complicates care, management, recovery and prognosis. Physical therapy to work with the patient once respiratory status has improved. TIME: 33 minutes of critical care time, independent of procedures, was spent addressing the patient's acute hypoxemic respiratory failure, COVID-19 pneumonia, septic shock, acute kidney injury, diabetes mellitus, review of all data and collaboration with the care team. ([id number]) [phone]: [id number] Critical care first hour
[2020-06-08] MEDS: Enoxaparin 100 MG/ML Syringe 90 MG SC ×2 (06:48→18:00)
[2020-06-08 07:46] LABS: Bedside Glucose 106 mg/dL (70-110)
[2020-06-08 08:08] LABS: Anion Gap 8 (5-15); BUN 19 mg/dL (7-18); BUN/Creat Ratio 41.5 RATIO (10-20); Calcium,Total 7.8 mg/dL (8.5-10.1); Chloride 104 mmol/L (98-107); Creatinine, Serum 0.46 mg/dL (0.55-1.02); EST Glomerular Filtration Rate 151 mL/min (>60); Est Glom Filt Rate - Afr Amer 183 mL/min (>60); Estimated Creatinine Clearance 125.81 ml/min; Glucose 103 mg/dL (74-106); Potassium 2.9 mmol/L (3.5-5.1); Sodium Level 142 mmol/L (136-145)
[2020-06-08 08:10] LABS: Absolute Lymphocyte Count 2.74 X10^3/uL (0.83-4.51); Absolute Neutrophil Count 7.6 X10^3/uL (2.0-7.7); Basophil# 0.04 X10^3/uL; Basophil% 0.3 % (0-1); Eosinophil# 0.11 X10^3/uL; Hematocrit 37.4 % (37-47); Hemoglobin 11.9 g/dL (12.0-15.0); Lymphocyte # 2.74 X10^3/ul (4.0); Lymphocyte % 23.8 % (19-41); Mean Corp Hgb Conc 31.8 g/dL (32-36); Mean Corpuscular Hgb 28.6 pg (27.0-32.0); Mean Corpuscular Volume 89.9 fL (81-99); Mean Platelet Vol. 11.9 fl (6.2-12.0); Monocyte# 0.68 X10^3/uL; Monocyte% 5.9 % (0-10); NRBC Flagged by Analyzer 0 % (0-5); Neutrophil # 7.59 X10^3/uL (2.7-7.7); Neutrophil % 65.9 % (47-70); Platelet Count 204 K/mm3 (150-450); RBC Distribution Width CV 13.7 % (11.6-14.6); RBC Distribution Width SD 44.4 fl (35.1-43.9); Red Blood Count 4.16 M/mm3 (4.2-5.4); White Blood Count 11.5 K/mm3 (4.4-11.0)
[2020-06-08] MEDS: Propofol 10MG/Ml 1,000 MG/100 ML Bottle 21.6 MG CONT INF (10:00)
[2020-06-08] MEDS: Docusate Sodium 100 MG/10 ML UDC PO ×2 (10:15→22:13)
[2020-06-08] MEDS: Furosemide 100 MG/10 ML Vial 80 MG IV ×2 (10:15→17:45)
[2020-06-08] MEDS: Famotidine 200 MG/20 ML MDV 20 MG in 0.9% Normal Saline (Pres. free 8 ML 300 MG IV (10:16)
[2020-06-08] MEDS: dexAMETHasone 4 MG Tablet 6 MG PO (10:16)
[2020-06-08] MEDS: QUEtiapine 100 MG Tablet GT (10:16)
[2020-06-08] MEDS: Chlorhexidine 15 ML PO ×2 (10:23→19:58)
[2020-06-08] MEDS: TITRATION PARAMETER CHANGE 1 EACH IV (10:23)
[2020-06-08] MEDS: Menthol/Lanolin/Calamine/Znox 113 GM Tube 1 APPLIC TOPICAL ×2 (10:23→19:58)
[2020-06-08] MEDS: Nystatin Powder 15gm Bottle 1 APPLIC TOPICAL ×2 (10:24→20:00)
--- NOTE | 2020-06-08 10:31 | PCM.PN.ID ---
Patient Problems: Active and Suspected Problems (This Medical Record has been edited. Action required.) Pneumonia due to COVID-19 virus (Acute) Respiratory insufficiency (Acute) SARS (severe acute respiratory syndrome) (Acute) Subjective: On vent, no fever overnight - Physical Exam Vitals/I&O's: Vital Signs Temp Pulse Resp BP Pulse Ox 99.4 F H 101 H 23 H 147/72 H 98 06/08/20 06:00 06/08/20 06:00 06/08/20 06:00 06/08/20 06:00 06/08/20 06:00 Oxygen Flow Rate (L/min) 8 Oxygen Delivery Method Mechanical Ventilator Weight: 80 kg Body Mass Index (BMI) 28.7 Finger Stick Blood Glucose 377 Intake and Output for Last 24 Hours 06/06/20 06/07/20 06/08/20 23:59 23:59 23:59 Intake Total 3235.13 / 3235.13 2833.11 / 2929.91 552.76 / 552.76 Output Total 6800 / 6800 5325 / 5325 350 / 350 Balance -3564.87 / -3564.87 -2491.89 / -2395.09 202.76 / 202.76 General: No apparent distress Lungs: Diminished, Rhonchi Cardiovascular: Regular rate, Regular Rhythm Abdomen: Soft, Non Tender, Non-Distended Skin: No rashes Microbiology Past 72 Hours 06/07/20 10:40 Sputum, Induced/Lukens Gram Stain - Final 06/07/20 10:40 Sputum, Induced/Lukens Respiratory Culture - Preliminary Staphylococcus aureus Laboratory Results 06/07/20 05:00: Total Creatine Kinase 38, Triglycerides 375 H 06/07/20 12:13: POC Glucose 106 06/07/20 17:31: POC Glucose 152 H 06/07/20 23:11: POC Glucose 212 H 06/08/20 06:30: WBC 11.5 H, RBC 4.16 L, Hgb 11.9 L, Hct 37.4, MCV 89.9, MCH 28.6, MCHC 31.8 L, RDW Std Deviation 44.4 H, RDW Coeff of Osorio 13.7, Plt Count 204, MPV 11.9, Immature Gran % (Auto) 3.100 H, Neut % (Auto) 65.9, Lymph % (Auto) 23.8, [place] % (Auto) 5.9, Eos % (Auto) 1.0, Baso % (Auto) 0.3, Absolute Neuts (auto) 7.6, Absolute Lymphs (auto) 2.74, Nucleated RBC % 0 06/08/20 06:30: Sodium 142, Potassium 2.9 L, Chloride 104, Carbon Dioxide 30.0, Anion Gap 8, BUN 19 H, Creatinine 0.46 L, Estim Creat Clear Calc 125.81, Est GFR (MDRD) Af Amer 183, Est GFR (MDRD) Non-Af 151, BUN/Creatinine Ratio 41.5 H, Glucose 103, Calcium 7.8 L 06/08/20 06:39: POC Glucose 106 Current Medications Albuterol Sulfate (Albuterol Ih 8.5 Gm (Proair) Inhaler (200 Puffs)) 2 puff INHALATION Q4H PRN PRN PRN Reason: SOB/WHEEZING Albuterol Sulfate (Albuterol 2.5 Mg/3 Ml Vial.Neb.) 2.5 mg INHALATION Q2H PRN PRN PRN Reason: dyspnea, wheezing Last Admin: 05/31/20 07:45 Dose: 2.5 mg Documented by: Calamine/Phenol (Menthol/Lanolin/Calamine/Znox 113 Gm Tube) 1 applic TOPICAL BID [facility]; Protocol Last Admin: 06/08/20 10:23 Dose: 1 applic Documented by: Chlorhexidine Gluconate (Chlorhexidine 15 Ml) 15 ml PO BID [facility] Last Admin: 06/08/20 10:23 Dose: 15 ml Documented by: Dexamethasone (Dexamethasone 4 Mg Tablet) 6 mg PO DAILY [facility] Last Admin: 06/08/20 10:16 Dose: 6 mg Documented by: Dextrose (Dextrose 50%-Water 25 Gm/50 Ml Disp.Syrin) 0 gm IV X1 PRN; Protocol PRN Reason: Hypoglycemia Docusate Sodium (Docusate Sodium 100 Mg/10 Ml Udc) 100 mg PO BID [facility] Last Admin: 06/08/20 10:15 Dose: 100 mg Documented by: Enoxaparin Sodium (Enoxaparin 100 Mg/Ml Syringe) 90 mg SC Q12@0600,1800 [facility] Last Admin: 06/08/20 06:48 Dose: 90 mg Documented by: Furosemide (Furosemide 100 Mg/10 Ml Vial) 80 mg IV BID@1000,1700 [facility] Last Admin: 06/08/20 10:15 Dose: 80 mg Documented by: Glucagon (Glucagon 1 Mg/Ml Syringe) 1 mg IM .X1 PRN PRN Reason: Hypoglycemia Sodium Chloride () 250 mls @ 15 mls/hr IV .[id number] PRN PRN Reason: Saline Flush Last Infusion: 06/06/20 04:06 Dose: 0 mls/hr Documented by: Sodium Chloride () 250 mls @ 15 mls/hr IV .[id number] PRN PRN Reason: Additional IVPB Infusion Famotidine 20 mg/ Sodium (Chloride) 10 mls @ 300 mls/hr IV Q12 [facility] Last Admin: 06/08/20 10:16 Dose: 300 mls/hr Documented by: Fentanyl Citrate 1,000 mcg/ (Sodium Chloride) 100 mls @ 5 mls/hr CONT INF .Q20H [facility]; Protocol Last Admin: 06/08/20 07:15 Dose: 150 mcg/hr, 15 mls/hr Documented by: Norepinephrine Bitartrate 8 mg (/ Sodium Chloride) 250 mls @ 9.375 mls/hr CONT INF .[id number] [facility]; Protocol Last Admin: 06/08/20 09:26 Dose: 6 mcg/min, 11.3 mls/hr Documented by: Enteral Nutritional Formula (Vital Af 1.2 Rick Liquid) 1,000 mls @ 60 mls/hr GT .[id number] [facility] Last Admin: 06/07/20 20:02 Dose: 60 mls/hr Documented by: Propofol (Diprivan) 1,000 mg in 100 mls @ 4.8 mls/hr CONT INF .Q12H [facility]; Protocol Last Titration: 06/08/20 07:00 Dose: 40 mcg/kg/min, 19.2 mls/hr Documented by: Vancomycin IV Pharmacy to Dose (1 ea/ Sodium Chloride) 500 mls @ 250 mls/hr IV X1 PRN; Protocol PRN Reason: Rx to Dose Vancomycin HCl 2,000 mg/ (Sodium Chloride) 540 mls @ 250 mls/hr IV Q12H [facility] Last Admin: 06/08/20 04:30 Dose: 250 mls/hr Documented by: Dexmedetomidine HCl 400 mcg/ (Sodium Chloride) 100 mls @ 10 mls/hr CONT INF .Q10H [facility]; Protocol Last Admin: 06/08/20 09:23 Dose: 0.2 mcg/kg/hr, 4 mls/hr Documented by: Insulin Glargine (Insulin Glargine 100 Units/Ml Pen) 60 units SC BID [facility] Last Admin: 06/08/20 10:22 Dose: 60 u Documented by: Insulin Human Lispro (Insulin Lispro 100 Unit/Ml Insuln.Pen) 0 unit SC Q6H [facility]; Protocol Last Admin: 06/08/20 06:48 Dose: Not Given Documented by: Melatonin (Melatonin 3 Mg Tablet) 3 mg PO QHS PRN PRN PRN Reason: INSOMNIA Nystatin (Nystatin Powder 15gm Bottle) 1 applic TOPICAL BID [facility]; Protocol Last Admin: 06/08/20 10:24 Dose: 1 applic Documented by: Ondansetron HCl (Ondansetron 4 Mg/2 Ml Vial) 4 mg IV Q8H PRN PRN PRN Reason: NAUSEA/VOMITING Polyethylene Glycol (Polyethylene Glycol 3350 17 Gm Packet) 17 gm PO DAILY PRN PRN Reason: Constipation Potassium Chloride (Potassium Chloride 20 Meq Tablet) 40 meq PO BID@1000,1700 [facility] Last Admin: 06/08/20 10:14 Dose: 40 meq Documented by: Quetiapine Fumarate (Quetiapine 100 Mg Tablet) 100 mg GT BID [facility] Last Admin: 06/08/20 10:16 Dose: 100 mg Documented by: Sodium Chloride (0.9% Saline Lock 10 Ml Syringe) 10 - 40 ml IV UD PRN PRN Reason: SALINE FLUSH Last Admin: 06/07/20 23:19 Dose: 20 ml Documented by: Medical Necessity - Tobacco Use Smoking Status: Former smoker Route of nutrition/ use of supplements: [] Nutritional Intake: [] IV Site: [] Cuellar Catheter: [] - Assessment/Plan Antibiotics: [] Assessment/Plan: [] Active and Suspected Problems (This Medical Record has been edited. Action required.) Pneumonia due to COVID-19 virus (Acute) Respiratory insufficiency (Acute) SARS (severe acute respiratory syndrome) (Acute) covid with hypoxia - sx start 05/19. Lactate over 2. D-dimer was 0.9, CT neg for PE, on lovenox 40mg bid. Cont dex, completed remdesivir. Ucx with ecoli. Sputum now with MRSA. 06/02 started vanc. Also on zosyn. Will stop zosyn today. No fever overnight, wbc improved, repeat sputum again with staph aureus. Will follow
[2020-06-08] MEDS: Vital AF 1.2 Cal Liquid 1,000 ML 30 ML GT (12:00)
[2020-06-08 12:51] LABS: Bedside Glucose 97 mg/dL (70-110)
--- NOTE | 2020-06-08 14:19 | PCM.PN.HOSP ---
Patient Problems: Active and Suspected Problems (This Medical Record has been edited. Action required.) Pneumonia due to COVID-19 virus (Acute) Respiratory insufficiency (Acute) SARS (severe acute respiratory syndrome) (Acute) Reason for Visit: COVID 19 Subjective: O2 weaned. Still requiring significant sedation. Vitals/I&O's: Vital Signs Temp Pulse Resp BP Pulse Ox 37.4 C H 65 22 H 147/72 H 95 06/08/20 06:00 06/08/20 12:00 06/08/20 10:25 06/08/20 06:00 06/08/20 10:25 Oxygen Flow Rate (L/min) 8 Oxygen Delivery Method Mechanical Ventilator Weight: 80 kg Body Mass Index (BMI) 28.7 Finger Stick Blood Glucose 377 Intake and Output for Last 24 Hours 06/06/20 06/07/20 06/08/20 23:59 23:59 23:59 Intake Total 3235.13 / 3235.13 2833.11 / 2929.91 1362.40 / 1362.40 Output Total 6800 / 6800 5325 / 5325 1050 / 1050 Balance -3564.87 / -3564.87 -2491.89 / -2395.09 312.40 / 312.40 General: Confused, - - intubated and sedated. HEENT: Atraumatic, Normocephalic Oral: Moist Mucosa, No Gingival or Mucosal Lesions/ Ulcerations Neck: No Nodes, Thyroid Normal Size and Texture Lungs: Normal air movement, - - coarse breath sounds bilaterally. Cardiovascular: Regular rate, Regular Rhythm, Normal S1, Normal S2, No murmurs Abdomen: Bowel Sounds Present, Soft, Non Tender, Non-Distended, No Hepato-splenomegaly Extremities: No edema, No Calf Tenderness Microbiology Past 72 Hours 06/07/20 10:40 Sputum, Induced/Lukens Gram Stain - Final 06/07/20 10:40 Sputum, Induced/Lukens Respiratory Culture - Preliminary Staphylococcus aureus Laboratory Results 06/07/20 17:31: POC Glucose 152 H 06/07/20 23:11: POC Glucose 212 H 06/08/20 06:30: WBC 11.5 H, RBC 4.16 L, Hgb 11.9 L, Hct 37.4, MCV 89.9, MCH 28.6, MCHC 31.8 L, RDW Std Deviation 44.4 H, RDW Coeff of Osorio 13.7, Plt Count 204, MPV 11.9, Immature Gran % (Auto) 3.100 H, Neut % (Auto) 65.9, Lymph % (Auto) 23.8, Randall % (Auto) 5.9, Eos % (Auto) 1.0, Baso % (Auto) 0.3, Absolute Neuts (auto) 7.6, Absolute Lymphs (auto) 2.74, Nucleated RBC % 0 06/08/20 06:30: Sodium 142, Potassium 2.9 L, Chloride 104, Carbon Dioxide 30.0, Anion Gap 8, BUN 19 H, Creatinine 0.46 L, Estim Creat Clear Calc 125.81, Est GFR (MDRD) Af Amer 183, Est GFR (MDRD) Non-Af 151, BUN/Creatinine Ratio 41.5 H, Glucose 103, Calcium 7.8 L 06/08/20 06:39: POC Glucose 106 06/08/20 12:42: POC Glucose 97 Current Medications Albuterol Sulfate (Albuterol Ih 8.5 Gm (Proair) Inhaler (200 Puffs)) 2 puff INHALATION Q4H PRN PRN PRN Reason: SOB/WHEEZING Albuterol Sulfate (Albuterol 2.5 Mg/3 Ml Vial.Neb.) 2.5 mg INHALATION Q2H PRN PRN PRN Reason: dyspnea, wheezing Last Admin: 05/31/20 07:45 Dose: 2.5 mg Documented by: Calamine/Phenol (Menthol/Lanolin/Calamine/Znox 113 Gm Tube) 1 applic TOPICAL BID [facility]; Protocol Last Admin: 06/08/20 10:23 Dose: 1 applic Documented by: Chlorhexidine Gluconate (Chlorhexidine 15 Ml) 15 ml PO BID [facility] Last Admin: 06/08/20 10:23 Dose: 15 ml Documented by: Dexamethasone (Dexamethasone 4 Mg Tablet) 6 mg PO DAILY [facility] Last Admin: 06/08/20 10:16 Dose: 6 mg Documented by: Dextrose (Dextrose 50%-Water 25 Gm/50 Ml Disp.Syrin) 0 gm IV X1 PRN; Protocol PRN Reason: Hypoglycemia Docusate Sodium (Docusate Sodium 100 Mg/10 Ml Udc) 100 mg PO BID [facility] Last Admin: 06/08/20 10:15 Dose: 100 mg Documented by: Enoxaparin Sodium (Enoxaparin 100 Mg/Ml Syringe) 90 mg SC Q12@0600,1800 [facility] Last Admin: 06/08/20 06:48 Dose: 90 mg Documented by: Furosemide (Furosemide 100 Mg/10 Ml Vial) 80 mg IV BID@1000,1700 [facility] Last Admin: 06/08/20 10:15 Dose: 80 mg Documented by: Glucagon (Glucagon 1 Mg/Ml Syringe) 1 mg IM .X1 PRN PRN Reason: Hypoglycemia Sodium Chloride () 250 mls @ 15 mls/hr IV .[id number] PRN PRN Reason: Saline Flush Last Infusion: 06/06/20 04:06 Dose: 0 mls/hr Documented by: Sodium Chloride () 250 mls @ 15 mls/hr IV .[id number] PRN PRN Reason: Additional IVPB Infusion Famotidine 20 mg/ Sodium (Chloride) 10 mls @ 300 mls/hr IV Q12 OLLIE Last Infusion: 06/08/20 10:18 Dose: Infused Documented by: Fentanyl Citrate 1,000 mcg/ (Sodium Chloride) 100 mls @ 5 mls/hr CONT INF .Q20H [facility]; Protocol Last Admin: 06/08/20 07:15 Dose: 150 mcg/hr, 15 mls/hr Documented by: Norepinephrine Bitartrate 8 mg (/ Sodium Chloride) 250 mls @ 9.375 mls/hr CONT INF .[id number] [facility]; Protocol Last Admin: 06/08/20 09:26 Dose: 6 mcg/min, 11.3 mls/hr Documented by: Enteral Nutritional Formula (Vital Af 1.2 Rick Liquid) 1,000 mls @ 60 mls/hr GT .[id number] [facility] Last Admin: 06/07/20 20:02 Dose: 60 mls/hr Documented by: Propofol (Diprivan) 1,000 mg in 100 mls @ 4.8 mls/hr CONT INF .Q12H [facility]; Protocol Last Admin: 06/08/20 10:00 Dose: 45 mcg/kg/min, 21.6 mls/hr Documented by: Vancomycin IV Pharmacy to Dose (1 ea/ Sodium Chloride) 500 mls @ 250 mls/hr IV X1 PRN; Protocol PRN Reason: Rx to Dose Vancomycin HCl 2,000 mg/ (Sodium Chloride) 540 mls @ 250 mls/hr IV Q12H [facility] Last Infusion: 06/08/20 13:50 Dose: Infused Documented by: Dexmedetomidine HCl 400 mcg/ (Sodium Chloride) 100 mls @ 10 mls/hr CONT INF .Q10H [facility]; Protocol Last Admin: 06/08/20 09:23 Dose: 0.2 mcg/kg/hr, 4 mls/hr Documented by: Insulin Glargine (Insulin Glargine 100 Units/Ml Pen) 60 units SC BID [facility] Last Admin: 06/08/20 10:22 Dose: 60 u Documented by: Insulin Human Lispro (Insulin Lispro 100 Unit/Ml Insuln.Pen) 0 unit SC Q6H [facility]; Protocol Last Admin: 06/08/20 13:51 Dose: Not Given Documented by: Melatonin (Melatonin 3 Mg Tablet) 3 mg PO QHS PRN PRN PRN Reason: INSOMNIA Nystatin (Nystatin Powder 15gm Bottle) 1 applic TOPICAL BID [facility]; Protocol Last Admin: 06/08/20 10:24 Dose: 1 applic Documented by: Ondansetron HCl (Ondansetron 4 Mg/2 Ml Vial) 4 mg IV Q8H PRN PRN PRN Reason: NAUSEA/VOMITING Polyethylene Glycol (Polyethylene Glycol 3350 17 Gm Packet) 17 gm PO DAILY PRN PRN Reason: Constipation Potassium Chloride (Potassium Chloride 20 Meq Tablet) 40 meq PO BID@1000,1700 [facility] Last Admin: 06/08/20 10:14 Dose: 40 meq Documented by: Quetiapine Fumarate (Quetiapine 25 Mg Tablet) 50 mg PO BID [facility] Sodium Chloride (0.9% Saline Lock 10 Ml Syringe) 10 - 40 ml IV UD PRN PRN Reason: SALINE FLUSH Last Admin: 06/07/20 23:19 Dose: 20 ml Documented by: STROKE Vital Signs/Narrative: Vital Signs Pulse Resp Pulse Ox 06/08/20 12:00 65 06/08/20 10:25 75 22 H 95 Medical Necessity - Tobacco Use Smoking Status: Former smoker Assessment/Plan All Active Problems (This Medical Record has been edited. Action required.) Pneumonia due to COVID-19 virus (Acute) Respiratory insufficiency (Acute) SARS (severe acute respiratory syndrome) (Acute) 1. acute hypoxic respiratory failure 2/2 COVID 19 pneumonia/ALI, MRSA pneumonia on vent 60% FiO2 furosemide challenge 2. acute COVID 19 pneumonia/ALI completed dexa and rem-d 3. Agitation ongoing on dexmedetomidine, propofol, fentanyl and quetiapine ?ICANS/YONY? 4. DM2 fair control glargine 60 BID + SSI 5. Septic shock 2/2 COVID 19 and MRSA pneumonia and UTI on norepi 6. MRSA pneumonia vancomycin 7. UTI E. coli, resistance to amp and amp/SB on pip/tazo 8. VTE prophylaxis: anticoagulation Inpatient E&M: [id number] [facility] L2
[2020-06-08] MEDS: Propofol 10MG/Ml 1,000 MG/100 ML Bottle 26.4 MG CONT INF ×2 (15:15→18:45)
[2020-06-08 17:22] LABS: Vancomycin, Trough Level 15.1 ug/mL (5.0-15.0)
[2020-06-08 18:25] LABS: Bedside Glucose 150 mg/dL (70-110)
--- NOTE | 2020-06-08 18:59 | PCM.RX.CS ---
Consult Pharmacy has been consulted to manage selected antiobiotic: Vancomycin Type of Consult: Follow-up Suspected Infection: Pneumonia Labs: Sodium 142 mmol/L (136-145) 06/08/20 06:30 Potassium 2.9 mmol/L (3.5-5.1) L 06/08/20 06:30 Chloride 104 mmol/L (98-107) 06/08/20 06:30 Carbon Dioxide 30.0 mmol/L (21.0-32.0) 06/08/20 06:30 Anion Gap 8 (5-15) 06/08/20 06:30 BUN 19 mg/dL (7-18) H 06/08/20 06:30 Creatinine 0.46 mg/dL (0.55-1.02) L 06/08/20 06:30 Est GFR (MDRD) Af Amer 183 mL/min (>60) 06/08/20 06:30 Est GFR (MDRD) Non-Af 151 mL/min (>60) 06/08/20 06:30 BUN/Creatinine Ratio 41.5 RATIO (10-20) H 06/08/20 06:30 Glucose 103 mg/dL (74-106) 06/08/20 06:30 Vancomycin Trough 15.1 ug/mL (5.0-15.0) H 06/08/20 16:22 Microbiology: Microbiology 06/07/20 10:40 Sputum, Induced/Lukens Gram Stain - Final 06/07/20 10:40 Sputum, Induced/Lukens Respiratory Culture - Preliminary Staphylococcus aureus 06/01/20 06:40 Sputum, Induced/Lukens Gram Stain - Final 06/01/20 06:40 Sputum, Induced/Lukens Respiratory Culture - Final Meth. resistant Staph. aureus 05/28/20 21:15 Sputum, Induced/Lukens Gram Stain - Final 05/28/20 21:15 Sputum, Induced/Lukens Respiratory Culture - Final 05/29/20 11:00 Urine Catheter - Cuellar Urine Culture - Final Presumptive E. coli 05/26/20 04:05 Blood Culture (Wb) - Right Hand Blood Culture - Final No growth in 5 days. 05/26/20 03:48 Blood Culture (Wb) - Anticubital Right Blood Culture - Final No growth in 5 days. Goal Trough: 15-20 mcg/mL Pharmacy Plan for Drug Dosing: VANCOMYCIN LEVEL RECEIVED Current Vancomycin Dose: 2000MG Q12H Number of Doses Received: 8 OF 2000MG Vancomycin Level: 15.1 MG/DL Hours Since Last Dose: 12 Renal Function: SCR 0.46, CRCL 125 ML/MIN Renal Function Trend: STABLE Vancomycin Plan/Comments: CONTINUE CURRENT DOSE AND DRAW A TROUGH IN 4 DAYS Pharmacy Service will continue to monitor and adjust dosing as required. Labs to be done on [date and time ordered]: 06/12/20 @ 9055
[2020-06-08] MEDS: QUEtiapine 25 MG Tablet 50 MG PO (22:13)
[2020-06-08] MEDS: Propofol 10MG/Ml 1,000 MG/100 ML Bottle 19.2 MG CONT INF (23:15)
[2020-06-08] MEDS: Insulin Lispro 100 UNIT/ML INSULN.PEN SC (23:31)
[2020-06-08 23:40] LABS: Bedside Glucose 167 mg/dL (70-110)
[2020-06-09] VITALS (58 sets, daily range): BP systolic 76–167; BP diastolic 42–95; PULSE 58–122; RESP 14–32; TEMP 37.1–38.2; O2SAT 69–100
[2020-06-09] MEDS: Famotidine 200 MG/20 ML MDV 20 MG in 0.9% Normal Saline (Pres. free 8 ML 300 MG IV ×3 (00:18→20:47)
--- NOTE | 2020-06-09 05:34 | PN_ITS ---
Subjective: The patient was seen and examined at the bedside this morning. Events from the last 24 hours have been reviewed. The patient is currently afebrile, hemodynamically stable and maintaining appropriate oxygen saturations with an FiO2 requirement of 40%. The patient is currently on a spontaneous breathing trial, which she is tolerating. The patient's propofol and fentanyl are currently on hold. She remains on Precedex at 1.1. The patient is also still on Levophed at 4 mcg/min, which can likely be weaned, now that her sedation is on hold. The patient is currently documented to be overall net +7 L for the hospital admission. She remains on Decadron and twice daily scheduled IV Lasix. Objective: The patient's most recent lab work, culture data and imaging studies have all been personally reviewed. Coronavirus PCR was positive on May 22. Urine culture was positive for presumptive E. coli. Sputum culture was positive for MRSA. General: Alert, No apparent distress, - - Remains intubated and mechanically ventilated. Currently tolerating spontaneous mode of mechanical ventilation. HEENT: Atraumatic, Normocephalic Oral: No Gingival or Mucosal Lesions/ Ulcerations, - - Endotracheal and OG tubes remain in place. Neck: Supple, No Nodes, Trachea Midline Lungs: No rhonchi, No wheeze, No rales, Diminished Cardiovascular: Regular rate, Regular Rhythm Abdomen: Bowel Sounds Present, Soft, Non Tender Extremities: No clubbing, No cyanosis, Edema Skin: No breakdown Musculoskeletal: No Tenderness to Palpation of Joints or Extremities Lymphatic: No Cervical, Supraclavicular, or Inguinal Adenopathy Neurological: - - No focal deficits. Attempt to move extremities spontaneously. Alert and able to follow some simple commands. Psych/Mental Status: Restless Vital Signs Temp Pulse Resp BP Pulse Ox 99.9 F H 60 26 H 92/56 L 93 06/09/20 02:00 06/09/20 02:25 06/09/20 05:10 06/09/20 02:30 06/09/20 02:25 Oxygen Flow Rate (L/min) 8 Oxygen Delivery Method Mechanical Ventilator Weight: 176 lb 5.917 oz Body Mass Index (BMI) 28.7 Finger Stick Blood Glucose 377 Intake and Output for Last 24 Hours 06/07/20 06/08/20 06/09/20 23:59 23:59 23:59 Intake Total 2833.11 / 2929.91 2906.60 / 2920.48 700.32 / 700.32 Output Total 5325 / 5325 3700 / 4475 775 / 775 Balance -2491.89 / -2395.09 -793.40 / -1554.52 -74.68 / -74.68 Labs (Last 48 Hours) 06/07/20 06/07/20 06/07/20 05:00 05:25 12:13 WBC RBC Hgb Hct MCV MCH MCHC RDW Std Deviation RDW Coeff of Osorio Plt Count MPV Immature Gran % (Auto) Neut % (Auto) Lymph % (Auto) Robertson % (Auto) Eos % (Auto) Baso % (Auto) Absolute Neuts (auto) Absolute Lymphs (auto) Nucleated RBC % Sodium Potassium Chloride Carbon Dioxide Anion Gap BUN Creatinine Estim Creat Clear Calc Est GFR (MDRD) Af Amer Est GFR (MDRD) Non-Af BUN/Creatinine Ratio Glucose Calcium Total Creatine Kinase 38 Triglycerides 375 H Vancomycin Trough POC Glucose 154 H 106 06/07/20 06/07/20 06/08/20 17:31 23:11 06:30 WBC 11.5 H RBC 4.16 L Hgb 11.9 L Hct 37.4 MCV 89.9 MCH 28.6 MCHC 31.8 L RDW Std Deviation 44.4 H RDW Coeff of Osorio 13.7 Plt Count 204 MPV 11.9 Immature Gran % (Auto) 3.100 H Neut % (Auto) 65.9 Lymph % (Auto) 23.8 Robertson % (Auto) 5.9 Eos % (Auto) 1.0 Baso % (Auto) 0.3 Absolute Neuts (auto) 7.6 Absolute Lymphs (auto) 2.74 Nucleated RBC % 0 Sodium Potassium Chloride Carbon Dioxide Anion Gap BUN Creatinine Estim Creat Clear Calc Est GFR (MDRD) Af Amer Est GFR (MDRD) Non-Af BUN/Creatinine Ratio Glucose Calcium Total Creatine Kinase Triglycerides Vancomycin Trough POC Glucose 152 H 212 H 06/08/20 06/08/20 06/08/20 06:30 06:39 12:42 WBC RBC Hgb Hct MCV MCH MCHC RDW Std Deviation RDW Coeff of Osorio Plt Count MPV Immature Gran % (Auto) Neut % (Auto) Lymph % (Auto) Robertson % (Auto) Eos % (Auto) Baso % (Auto) Absolute Neuts (auto) Absolute Lymphs (auto) Nucleated RBC % Sodium 142 Potassium 2.9 L Chloride 104 Carbon Dioxide 30.0 Anion Gap 8 BUN 19 H Creatinine 0.46 L Estim Creat Clear Calc 125.81 Est GFR (MDRD) Af Amer 183 Est GFR (MDRD) Non-Af 151 BUN/Creatinine Ratio 41.5 H Glucose 103 Calcium 7.8 L Total Creatine Kinase Triglycerides Vancomycin Trough POC Glucose 106 97 06/08/20 06/08/20 06/08/20 16:22 18:01 23:30 WBC RBC Hgb Hct MCV MCH MCHC RDW Std Deviation RDW Coeff of Osorio Plt Count MPV Immature Gran % (Auto) Neut % (Auto) Lymph % (Auto) Robertson % (Auto) Eos % (Auto) Baso % (Auto) Absolute Neuts (auto) Absolute Lymphs (auto) Nucleated RBC % Sodium Potassium Chloride Carbon Dioxide Anion Gap BUN Creatinine Estim Creat Clear Calc Est GFR (MDRD) Af Amer Est GFR (MDRD) Non-Af BUN/Creatinine Ratio Glucose Calcium Total Creatine Kinase Triglycerides Vancomycin Trough 15.1 H POC Glucose 150 H 167 H Microbiology 06/07/20 10:40 Sputum, Induced/Lukens Gram Stain - Final 06/07/20 10:40 Sputum, Induced/Lukens Respiratory Culture - Preliminary Staphylococcus aureus Clinical Impression(s) from Imaging Studies Chest X-Ray 05/26/20 03:41 IMPRESSION: Multifocal pneumonia to include viral pneumonia. Electronically Signed: Forrest Cee MD at 4:28 EST , Service support , Chest CTA 05/26/20 04:23 IMPRESSION: No pulmonary embolus or thoracic aortic dissection. Diffuse groundglass opacities compatible with multifocal pneumonia very suggestive of viral pneumonia. Multiple small mediastinal lymph nodes. Electronically Signed: Forrest Cee MD at 5:18 EST , Service support , Chest X-Ray 05/28/20 04:38 IMPRESSION: GA confluent airspace disease likely pneumonia multilobular and bilateral. Aeration has worsened. Electronically Signed: Nighat Neal MD at 5:48 EST , Service support , Chest X-Ray 05/28/20 19:20 IMPRESSION: 1. Tubes and catheters as described. 2. Bilateral lower lobe pulmonary infiltrates unchanged from prior exam. Electronically Signed: Xavier Beach DO at 19:57 EST Tel [phone], Service support , KUB X-Ray 05/28/20 19:20 IMPRESSION: 1. OG tube as described. 2. No acute intra-abdominal process. 3. Persistent bibasilar infiltrates. Electronically Signed: Xavier Beach DO at 19:52 EST Tel [phone], Service support , Chest X-Ray 05/31/20 08:37 IMPRESSION: All the support tubes are in good position. Residual bilateral pulmonary infiltrates although there has been a mild degree of improvement as compared to prior study. Electronically Signed: Mauricio Sifuentes, at 9:14 EST , Service support , Chest X-Ray 05/31/20 19:30 IMPRESSION: Endotracheal tube at the right main bronchus. Worsening bilateral edema or pneumonia. Electronically Signed: Johny Calderon MD at 21:23 EST , Service support , ADDENDUM: 05/31/20 2138 IMPRESSION: Endotracheal tube at the right main bronchus. Worsening bilateral edema or pneumonia. N.B. : Tina Hicks RN , RN, confirmed on 05/31/2020 21:31:35 (ET) that the healthcare facility has received the radiology report. Electronically Signed: Johny Calderon MD at 21:23 EST , Service support , KUB X-Ray 05/31/20 20:40 IMPRESSION: Gastric tube with tip in the body. Electronically Signed: Verona Esparza, at 21:13 EST Tel , Service support , Chest X-Ray 06/05/20 07:25 IMPRESSION: Lines and tubes as above with continued diffuse similar patchy airspace disease throughout the lung parenchyma. Electronically Signed: Carroll Adonis, DO at 10:00 EST , Service support , Medical Necessity - Tobacco Use Smoking Status: Former smoker Assessment/Plan All Active Problems (This Medical Record has been edited. Action required.) Pneumonia due to COVID-19 virus (Acute) Respiratory insufficiency (Acute) SARS (severe acute respiratory syndrome) (Acute) RECOMMENDATIONS: 1. Proceed with a trial of extubation this morning. 2. Once extubated, wean supplemental oxygen to maintain saturations at or above 90%. 3. Patient to remain n.p.o., pending evaluation by speech therapy. 4. Continue Decadron to complete treatment course. 5. Continue antimicrobials per ID recommendations. 6. Continue therapeutic Lovenox. 7. Continue Lantus and sliding scale insulin coverage. 8. Additional potassium repletion as ordered. 9. Continue IV diuretics as tolerated by hemodynamics and renal function. 10. Aggressive physical therapy. IMPRESSIONS: 1. Acute hypoxemic respiratory failure secondary to COVID-19 pneumonia The patient continued to decompensate from a respiratory perspective following admission, eventually requiring ICU transfer and subsequent intubation on May 28. The patient has completed a treatment course of remdesivir and remains on Decadron. Given MRSA identified on sputum culture, antimicrobials will be continued, per ID recommendations. The patient passed her spontaneous breathing trial and was able to be extubated on the morning of June 09. Plan to wean supplemental oxygen to maintain saturations at or above 90%. The patient will remain n.p.o., pending formal evaluation by speech therapy. Will plan to continue IV diuretic therapy as tolerated by hemodynamics and renal function. 2. Septic shock Continue current supportive measures including vasopressor support to maintain a mean arterial pressure at or above 65 mmHg. Continue antimicrobials per ID recommendations. 3. Acute kidney injury Resolved. Likely prerenal in etiology with component of ischemic ATN in the setting of #2. Continue current supportive measures including vasopressor support to maintain hemodynamic stability. Continue to monitor urine output. No current indication for renal replacement therapy. 4. Hypokalemia Additional electrolyte repletion as ordered. Recheck levels in the morning. 5. Poorly controlled diabetes mellitus Continue Lantus and sliding scale insulin coverage. 6. ICU delirium Continue Seroquel as ordered. Attempt to wean from Precedex throughout the day. 7. Obesity/GERD Complicates care, management, recovery and prognosis. Aggressive physical therapy is now warranted. TIME: 37 minutes of critical care time, independent of procedures, was spent addressing the patient's acute hypoxemic respiratory failure, COVID-19 pneumonia, septic shock, acute kidney injury, diabetes mellitus, ICU delirium, review of all data and collaboration with the care team. ([id number]) [id number] Critical care first hour
[2020-06-09] MEDS: Enoxaparin 100 MG/ML Syringe 90 MG SC ×2 (06:44→08:22)
[2020-06-09 07:11] LABS: Bedside Glucose 110 mg/dL (70-110)
[2020-06-09 07:12] LABS: Absolute Lymphocyte Count 2.37 X10^3/uL (0.83-4.51); Absolute Neutrophil Count 7.6 X10^3/uL (2.0-7.7); Basophil# 0.09 X10^3/uL; Basophil% 0.8 % (0-1); Eosinophil# 0.09 X10^3/uL; Eosinophils% 0.8 % (0-5); Hematocrit 45.4 % (37-47); Hemoglobin 13.2 g/dL (12.0-15.0); Lymphocyte # 2.37 X10^3/ul (4.0); Lymphocyte % 21.5 % (19-41); Mean Corp Hgb Conc 29.1 g/dL (32-36); Mean Corpuscular Volume 96.4 fL (81-99); Mean Platelet Vol. 10.7 fl (6.2-12.0); Monocyte# 0.63 X10^3/uL; Monocyte% 5.7 % (0-10); NRBC Flagged by Analyzer 0 % (0-5); Neutrophil # 7.62 X10^3/uL (2.7-7.7); Neutrophil % 69.3 % (47-70); Platelet Count 214 K/mm3 (150-450); RBC Distribution Width CV 13.8 % (11.6-14.6); RBC Distribution Width SD 48.1 fl (35.1-43.9); Red Blood Count 4.71 M/mm3 (4.2-5.4)
[2020-06-09 07:58] LABS: ALB/GLOB Ratio 0.5 RATIO (0.9-2.4); AST(SGOT) 46 U/L (15-37); Alanine Aminotransfer ALT/SGPT 78 U/L (13-56); Albumin, Serum 2.4 g/dL (3.2-5.0); Alkaline Phosphatase 108 U/L (45-117); Anion Gap 9 (5-15); BUN 17 mg/dL (7-18); BUN/Creat Ratio 32.9 RATIO (10-20); Calcium,Total 9.2 mg/dL (8.5-10.1); Chloride 107 mmol/L (98-107); Creatinine, Serum 0.52 mg/dL (0.55-1.02); EST Glomerular Filtration Rate 132 mL/min (>60); Est Glom Filt Rate - Afr Amer 159 mL/min (>60); Estimated Creatinine Clearance 111.29 ml/min; Globulin 5.2 g/dL (2.2-4.2); Glucose 107 mg/dL (74-106); Magnesium 2.2 mg/dL (1.6-2.6); Potassium 3.3 mmol/L (3.5-5.1); Protein, Total 7.6 g/dL (6.4-8.2); Sodium Level 141 mmol/L (136-145)
[2020-06-09] MEDS: TITRATION PARAMETER CHANGE 1 EACH IV (08:10)
[2020-06-09] MEDS: QUEtiapine 25 MG Tablet 50 MG PO (08:19)
[2020-06-09] MEDS: dexAMETHasone 4 MG Tablet 6 MG PO (08:19)
[2020-06-09] MEDS: Furosemide 100 MG/10 ML Vial 80 MG IV ×2 (08:20→18:35)
[2020-06-09] MEDS: Menthol/Lanolin/Calamine/Znox 113 GM Tube 1 APPLIC TOPICAL ×2 (08:23→20:45)
[2020-06-09] MEDS: Nystatin Powder 15gm Bottle 1 APPLIC TOPICAL ×2 (08:23→20:46)
[2020-06-09] MEDS: Chlorhexidine 15 ML PO ×2 (08:23→20:46)
--- NOTE | 2020-06-09 11:41 | PN_ITS ---
Patient Problems: Active and Suspected Problems (This Medical Record has been edited. Action required.) Pneumonia due to COVID-19 virus (Acute) Respiratory insufficiency (Acute) SARS (severe acute respiratory syndrome) (Acute) Reason for Visit: COVID 19 Subjective: Extubated today. Coughing, but tolerating NC. Vitals/I&O's: Vital Signs Temp Pulse Resp BP Pulse Ox 38.0 C H 91 21 H 116/63 91 06/09/20 07:00 06/09/20 07:24 06/09/20 07:24 06/09/20 07:00 06/09/20 08:45 Oxygen Flow Rate (L/min) 8 Oxygen Delivery Method Nasal Cannula Weight: 81.6 kg Body Mass Index (BMI) 28.7 Finger Stick Blood Glucose 377 Intake and Output for Last 24 Hours 06/07/20 06/08/20 06/09/20 23:59 23:59 23:59 Intake Total 2833.11 / 2929.91 2906.60 / 2920.48 745.12 / 745.12 Output Total 5325 / 5325 3700 / 4475 950 / 950 Balance -2491.89 / -2395.09 -793.40 / -1554.52 -204.88 / -204.88 General: Alert, - - coughing, no respiratory distress. No conversational dyspnea. HEENT: Atraumatic, Normocephalic Oral: Moist Mucosa, No Gingival or Mucosal Lesions/ Ulcerations Neck: No Nodes, Thyroid Normal Size and Texture Lungs: Normal air movement, - - coarse BS bilaterally. Cardiovascular: Regular rate, Regular Rhythm, Normal S1, Normal S2, No murmurs Abdomen: Bowel Sounds Present, Soft, Non Tender, Non-Distended, No Hepato- splenomegaly Extremities: No edema, No Calf Tenderness Skin: No rashes, No breakdown Microbiology Past 72 Hours 06/07/20 10:40 Sputum, Induced/Lukens Gram Stain - Final 06/07/20 10:40 Sputum, Induced/Lukens Respiratory Culture - Final Meth. resistant Staph. aureus Laboratory Results 06/08/20 12:42: POC Glucose 97 06/08/20 16:22: Vancomycin Trough 15.1 H 06/08/20 18:01: POC Glucose 150 H 06/08/20 23:30: POC Glucose 167 H 06/09/20 06:42: POC Glucose 110 06/09/20 06:55: WBC 11.0, RBC 4.71, Hgb 13.2, Hct 45.4, MCV 96.4 D, MCH 28.0, MCHC 29.1 L D, RDW Std Deviation 48.1 H, RDW Coeff of Osorio 13.8, Plt Count 214, MPV 10.7, Immature Gran % (Auto) 1.900 H, Neut % (Auto) 69.3, Lymph % (Auto) 21.5, Woodruff % (Auto) 5.7, Eos % (Auto) 0.8, Baso % (Auto) 0.8, Absolute Neuts (auto) 7.6, Absolute Lymphs (auto) 2.37, Nucleated RBC % 0 06/09/20 06:55: Sodium 141, Potassium 3.3 L, Chloride 107, Carbon Dioxide 25.0, Anion Gap 9, BUN 17, Creatinine 0.52 L, Estim Creat Clear Calc 111.29, Est GFR (MDRD) Af Amer 159, Est GFR (MDRD) Non-Af 132, BUN/Creatinine Ratio 32.9 H, Glucose 107 H, Calcium 9.2, Magnesium 2.2, Total Bilirubin 0.60, AST 46 H, ALT 78 H, Alkaline Phosphatase 108, Total Protein 7.6, Albumin 2.4 L, Globulin 5.2 H , Albumin/Globulin Ratio 0.5 L Current Medications Albuterol Sulfate (Albuterol Ih 8.5 Gm (Proair) Inhaler (200 Puffs)) 2 puff INHALATION Q4H PRN PRN PRN Reason: SOB/WHEEZING Albuterol Sulfate (Albuterol 2.5 Mg/3 Ml Vial.Neb.) 2.5 mg INHALATION Q2H PRN PRN PRN Reason: dyspnea, wheezing Last Admin: 05/31/20 07:45 Dose: 2.5 mg Documented by: Calamine/Phenol (Menthol/Lanolin/Calamine/Znox 113 Gm Tube) 1 applic TOPICAL BID [facility]; Protocol Last Admin: 06/09/20 08:23 Dose: 1 applic Documented by: Chlorhexidine Gluconate (Chlorhexidine 15 Ml) 15 ml PO BID [facility] Last Admin: 06/09/20 08:23 Dose: 15 ml Documented by: Dexamethasone (Dexamethasone 4 Mg Tablet) 6 mg PO DAILY [facility] Last Admin: 06/09/20 08:19 Dose: 6 mg Documented by: Dextrose (Dextrose 50%-Water 25 Gm/50 Ml Disp.Syrin) 0 gm IV X1 PRN; Protocol PRN Reason: Hypoglycemia Docusate Sodium (Docusate Sodium 100 Mg/10 Ml Udc) 100 mg PO BID [facility] Last Admin: 06/09/20 08:23 Dose: Not Given Documented by: Enoxaparin Sodium (Enoxaparin 80 Mg/0.8 Ml Syringe) 80 mg SC Q12@0600,1800 [facility] Furosemide (Furosemide 100 Mg/10 Ml Vial) 80 mg IV BID@1000,1700 [facility] Last Admin: 06/09/20 08:20 Dose: 80 mg Documented by: Glucagon (Glucagon 1 Mg/Ml Syringe) 1 mg IM .X1 PRN PRN Reason: Hypoglycemia Sodium Chloride () 250 mls @ 15 mls/hr IV .[id number] PRN PRN Reason: Saline Flush Last Admin: 06/09/20 03:41 Dose: 15 mls/hr Documented by: Sodium Chloride () 250 mls @ 15 mls/hr IV .[id number] PRN PRN Reason: Additional IVPB Infusion Famotidine 20 mg/ Sodium (Chloride) 10 mls @ 300 mls/hr IV Q12 [facility] Last Infusion: 06/09/20 00:20 Dose: Infused Documented by: Norepinephrine Bitartrate 8 mg (/ Sodium Chloride) 250 mls @ 9.375 mls/hr CONT INF .[id number] [facility]; Protocol Last Titration: 06/09/20 07:00 Dose: 1 mcg/min, 1.9 mls/hr Documented by: Vancomycin IV Pharmacy to Dose (1 ea/ Sodium Chloride) 500 mls @ 250 mls/hr IV X1 PRN; Protocol PRN Reason: Rx to Dose Vancomycin HCl 2,000 mg/ (Sodium Chloride) 540 mls @ 250 mls/hr IV Q12H [facility] Last Admin: 06/09/20 06:15 Dose: 250 mls/hr Documented by: Dexmedetomidine HCl 400 mcg/ (Sodium Chloride) 100 mls @ 10.2 mls/hr CONT INF .[id number] [facility]; Protocol Last Titration: 06/09/20 06:00 Dose: 1.1 mcg/kg/hr, 22.4 mls/hr Documented by: Potassium Chloride () 10 meq in 100 mls @ 100 mls/hr IV BOLUS Q1H [facility] Stop: 06/09/20 14:14 Insulin Glargine (Insulin Glargine 100 Units/Ml Pen) 60 units SC BID [facility] Last Admin: 06/08/20 22:14 Dose: 60 u Documented by: Insulin Human Lispro (Insulin Lispro 100 Unit/Ml Insuln.Pen) 0 unit SC Q6H [facility]; Protocol Last Admin: 06/09/20 06:45 Dose: Not Given Documented by: Melatonin (Melatonin 3 Mg Tablet) 3 mg PO QHS PRN PRN PRN Reason: INSOMNIA Nystatin (Nystatin Powder 15gm Bottle) 1 applic TOPICAL BID [facility]; Protocol Last Admin: 06/09/20 08:23 Dose: 1 applic Documented by: Ondansetron HCl (Ondansetron 4 Mg/2 Ml Vial) 4 mg IV Q8H PRN PRN PRN Reason: NAUSEA/VOMITING Polyethylene Glycol (Polyethylene Glycol 3350 17 Gm Packet) 17 gm PO DAILY PRN PRN Reason: Constipation Potassium Chloride (Potassium Chloride 20 Meq Tablet) 40 meq PO BID@1000,1700 [facility] Last Admin: 06/09/20 08:19 Dose: 40 meq Documented by: Quetiapine Fumarate (Quetiapine 25 Mg Tablet) 50 mg PO BID [facility] Last Admin: 06/09/20 08:19 Dose: 50 mg Documented by: Sodium Chloride (0.9% Saline Lock 10 Ml Syringe) 10 - 40 ml IV UD PRN PRN Reason: SALINE FLUSH Last Admin: 06/07/20 23:19 Dose: 20 ml Documented by: STROKE Vital Signs/Narrative: Vital Signs Pulse Ox 06/09/20 08:45 91 Medical Necessity - Tobacco Use Smoking Status: Former smoker Assessment/Plan All Active Problems (This Medical Record has been edited. Action required.) Pneumonia due to COVID-19 virus (Acute) Respiratory insufficiency (Acute) SARS (severe acute respiratory syndrome) (Acute) 1. acute hypoxic respiratory failure * / COVID 19 pneumonia/ALI, MRSA pneumonia * 06/09 extubated * furosemide challenge 2. acute COVID 19 pneumonia/ALI * completed dexa and rem-d 3. Agitation * improved * on dexmedetomidine and quetiapine * ?ICANS/YONY? 4. DM2 * fair control * glargine 60 BID + SSI 5. Septic shock * 2/2 COVID 19 and MRSA pneumonia and UTI * on norepi 6. MRSA pneumonia * vancomycin 7. UTI * E. coli, resistance to amp and amp/SB * completed pip/tazo 8. VTE prophylaxis: anticoagulation Inpatient E&M: 66518 Subs Hosp L2
[2020-06-09] MEDS: Potassium Chloride 10mEq/100mL 10 MEQ/100 ML IV.SOLN. 100 MEQ IV BOLUS ×4 (12:00→17:10)
--- NOTE | 2020-06-09 12:15 | NURSING ---
1215 pt noted to have sudden increase in diff breathing. now w/using accessory muscles, gasping w/drop in sats. repositioned. 1230 pt w/cont deterioration. Skin increasingly mottled, diaphoretic. pt no longer responding to nameDr. Lazarus notified. 1240 Dr. Qiu present in pt room, RT also present. to bipap 100% 1245 CXR 1250 decision to intubate 1300 4mg IV versed, 20mg etomidate IV given 1305 #7.5 OET 23cm at lip. 100% FiO2. 1315 CXR for tube placement. Dr Qiu remains present in pt room.
--- NOTE | 2020-06-09 12:39 | RAD_ITS ---
STUDY: X-RAY CHEST REASON FOR EXAM: Female, 55 years old. respiratory distress, covid TECHNIQUE: Single AP portable view of the chest. COMPARISON: 06/05/2020. FINDINGS: Right PICC line tip overlies the cavoatrial junction. Diffuse patchy airspace disease throughout the bilateral lung parenchyma similar in comparison to previous. There is no demonstrated pleural abnormality. Normal size heart. Normal mediastinum and lillie. Normal visualized pulmonary arteries. Normal visualized aortic arch and descending thoracic aorta. Normal visualized thoracic spine. Normal visualized ribs, clavicles, and shoulders. There is no demonstrated abnormality of the visualized soft tissue structures of the upper abdomen. RAD/Chest 1 View (Portable) IMPRESSION: Stable diffuse patchy airspace opacities in both lungs. Electronically Signed: Carey Dey, at 14:18 EST Tel , Service support ,
[2020-06-09 12:46] LABS: Bedside Glucose 118 mg/dL (70-110)
[2020-06-09] MEDS: Etomidate 20 MG/10 ML Vial IV (13:00)
[2020-06-09] MEDS: Midazolam 2 MG/2 ML Syringe 4 MG IV (13:00)
[2020-06-09] MEDS: Propofol 10MG/Ml 1,000 MG/100 ML Bottle 9.8 MG CONT INF (13:10)
[2020-06-09] MEDS: Dexmedetomidine 1,000 mcg in 0.9% NS 240 mL 26.5 MCG CONT INF ×2 (13:15→22:30)
--- NOTE | 2020-06-09 13:24 | RAD_ITS ---
STUDY: X-RAY CHEST REASON FOR EXAM: Female, 55 years old. ETT PLACEMENT TECHNIQUE: Single AP portable view of the chest. COMPARISON: 06/09/2020 FINDINGS: Endotracheal tube overlies the mid trachea 4 cm from the damon. Right PICC line tip overlies the cavoatrial junction. NG tube travels through GE junction with distal portion not seen. Diffuse patchy airspace disease throughout the bilateral lung parenchyma similar in comparison to previous. There is no demonstrated pleural abnormality. Normal size heart. Normal mediastinum and lillie. Normal visualized pulmonary arteries. Normal visualized aortic arch and descending thoracic aorta. Normal visualized thoracic spine. Normal visualized ribs, clavicles, and shoulders. There is no demonstrated abnormality of the visualized soft tissue structures of the upper abdomen. RAD/Chest 1 View (Portable) IMPRESSION: Stable diffuse patchy airspace opacities in both lungs. Electronically Signed: Carey Dey, at 13:40 EST Tel , Service support ,
--- NOTE | 2020-06-09 15:22 | PN.ID_ITS ---
Patient Problems: Active and Suspected Problems (This Medical Record has been edited. Action required.) Pneumonia due to COVID-19 virus (Acute) Respiratory insufficiency (Acute) SARS (severe acute respiratory syndrome) (Acute) Subjective: Extubated then re-intubated. On pressors, vanc. - Physical Exam Vitals/I&O's: Vital Signs Temp Pulse Resp BP Pulse Ox 100.4 F H 93 29 H 77/45 L 91 06/09/20 07:00 06/09/20 13:31 06/09/20 13:31 06/09/20 14:30 06/09/20 13:31 Oxygen Flow Rate (L/min) 8 Oxygen Delivery Method Nasal Cannula Weight: 81.6 kg Body Mass Index (BMI) 28.7 Finger Stick Blood Glucose 377 Intake and Output for Last 24 Hours 06/07/20 06/08/20 06/09/20 23:59 23:59 23:59 Intake Total 2833.11 / 2929.91 2906.60 / 2920.48 1012.08 / 1012.08 Output Total 5325 / 5325 3700 / 4475 950 / 950 Balance -2491.89 / -2395.09 -793.40 / -1554.52 62.08 / 62.08 General: Non-Cooperative Lungs: Diminished Cardiovascular: Regular rate, Regular Rhythm Abdomen: Soft, Non Tender, Non-Distended Skin: No rashes Microbiology Past 72 Hours 06/07/20 10:40 Sputum, Induced/Lukens Gram Stain - Final 06/07/20 10:40 Sputum, Induced/Lukens Respiratory Culture - Final Meth. resistant Staph. aureus Laboratory Results 06/08/20 16:22: Vancomycin Trough 15.1 H 06/08/20 18:01: POC Glucose 150 H 06/08/20 23:30: POC Glucose 167 H 06/09/20 06:42: POC Glucose 110 06/09/20 06:55: WBC 11.0, RBC 4.71, Hgb 13.2, Hct 45.4, MCV 96.4 D, MCH 28.0, MCHC 29.1 L D, RDW Std Deviation 48.1 H, RDW Coeff of Osorio 13.8, Plt Count 214, MPV 10.7, Immature Gran % (Auto) 1.900 H, Neut % (Auto) 69.3, Lymph % (Auto) 21.5, George % (Auto) 5.7, Eos % (Auto) 0.8, Baso % (Auto) 0.8, Absolute Neuts (auto) 7.6, Absolute Lymphs (auto) 2.37, Nucleated RBC % 0 06/09/20 06:55: Sodium 141, Potassium 3.3 L, Chloride 107, Carbon Dioxide 25.0, Anion Gap 9, BUN 17, Creatinine 0.52 L, Estim Creat Clear Calc 111.29, Est GFR (MDRD) Af Amer 159, Est GFR (MDRD) Non-Af 132, BUN/Creatinine Ratio 32.9 H, Glucose 107 H, Calcium 9.2, Magnesium 2.2, Total Bilirubin 0.60, AST 46 H, ALT 78 H, Alkaline Phosphatase 108, Total Protein 7.6, Albumin 2.4 L, Globulin 5.2 H , Albumin/Globulin Ratio 0.5 L 06/09/20 12:18: POC Glucose 118 H Current Medications Albuterol Sulfate (Albuterol Ih 8.5 Gm (Proair) Inhaler (200 Puffs)) 2 puff INHALATION Q4H PRN PRN PRN Reason: SOB/WHEEZING Albuterol Sulfate (Albuterol 2.5 Mg/3 Ml Vial.Neb.) 2.5 mg INHALATION Q2H PRN PRN PRN Reason: dyspnea, wheezing Last Admin: 05/31/20 07:45 Dose: 2.5 mg Documented by: Calamine/Phenol (Menthol/Lanolin/Calamine/Znox 113 Gm Tube) 1 applic TOPICAL BID [facility]; Protocol Last Admin: 06/09/20 08:23 Dose: 1 applic Documented by: Chlorhexidine Gluconate (Chlorhexidine 15 Ml) 15 ml PO BID [facility] Last Admin: 06/09/20 08:23 Dose: 15 ml Documented by: Dexamethasone (Dexamethasone 4 Mg Tablet) 6 mg PO DAILY [facility] Last Admin: 06/09/20 08:19 Dose: 6 mg Documented by: Dextrose (Dextrose 50%-Water 25 Gm/50 Ml Disp.Syrin) 0 gm IV X1 PRN; Protocol PRN Reason: Hypoglycemia Docusate Sodium (Docusate Sodium 100 Mg/10 Ml Udc) 100 mg PO BID [facility] Last Admin: 06/09/20 08:23 Dose: Not Given Documented by: Enoxaparin Sodium (Enoxaparin 80 Mg/0.8 Ml Syringe) 80 mg SC Q12@0600,1800 [facility] Furosemide (Furosemide 100 Mg/10 Ml Vial) 80 mg IV BID@1000,1700 [facility] Last Admin: 06/09/20 08:20 Dose: 80 mg Documented by: Glucagon (Glucagon 1 Mg/Ml Syringe) 1 mg IM .X1 PRN PRN Reason: Hypoglycemia Sodium Chloride () 250 mls @ 15 mls/hr IV .[id number] PRN PRN Reason: Saline Flush Last Admin: 06/09/20 03:41 Dose: 15 mls/hr Documented by: Sodium Chloride () 250 mls @ 15 mls/hr IV .[id number] PRN PRN Reason: Additional IVPB Infusion Famotidine 20 mg/ Sodium (Chloride) 10 mls @ 300 mls/hr IV Q12 [facility] Last Infusion: 06/09/20 14:22 Dose: Infused Documented by: Norepinephrine Bitartrate 8 mg (/ Sodium Chloride) 250 mls @ 9.375 mls/hr CONT INF .[id number] [facility]; Protocol Last Titration: 06/09/20 14:30 Dose: 10 mcg/min, 18.8 mls/hr Documented by: Vancomycin IV Pharmacy to Dose (1 ea/ Sodium Chloride) 500 mls @ 250 mls/hr IV X1 PRN; Protocol PRN Reason: Rx to Dose Vancomycin HCl 2,000 mg/ (Sodium Chloride) 540 mls @ 250 mls/hr IV Q12H [facility] Last Admin: 06/09/20 06:15 Dose: 250 mls/hr Documented by: Dexmedetomidine HCl 1,000 mcg/ (Sodium Chloride) 250 mls @ 10.2 mls/hr CONT INF .[id number] [facility]; Protocol Last Titration: 06/09/20 14:00 Dose: 1.3 mcg/kg/hr, 26.5 mls/hr Documented by: Propofol (Diprivan) 1,000 mg in 100 mls @ 9.792 mls/hr CONT INF .[id number] [facility]; Protocol Last Admin: 06/09/20 13:10 Dose: 20 mcg/kg/min, 9.8 mls/hr Documented by: Fentanyl Citrate 1,000 mcg/ (Sodium Chloride) 100 mls @ 10 mls/hr CONT INF .Q10H [facility]; Protocol Last Admin: 06/09/20 13:10 Dose: 100 mcg/hr, 10 mls/hr Documented by: Insulin Glargine (Insulin Glargine 100 Units/Ml Pen) 60 units SC BID [facility] Last Admin: 06/09/20 11:30 Dose: Not Given Documented by: Insulin Human Lispro (Insulin Lispro 100 Unit/Ml Insuln.Pen) 0 unit SC Q6H [facility]; Protocol Last Admin: 06/09/20 14:10 Dose: Not Given Documented by: Melatonin (Melatonin 3 Mg Tablet) 3 mg PO QHS PRN PRN PRN Reason: INSOMNIA Nystatin (Nystatin Powder 15gm Bottle) 1 applic TOPICAL BID [facility]; Protocol Last Admin: 06/09/20 08:23 Dose: 1 applic Documented by: Ondansetron HCl (Ondansetron 4 Mg/2 Ml Vial) 4 mg IV Q8H PRN PRN PRN Reason: NAUSEA/VOMITING Polyethylene Glycol (Polyethylene Glycol 3350 17 Gm Packet) 17 gm PO DAILY PRN PRN Reason: Constipation Potassium Chloride (Potassium Chloride 20 Meq Tablet) 40 meq PO BID@1000,1700 [facility] Last Admin: 06/09/20 08:19 Dose: 40 meq Documented by: Quetiapine Fumarate (Quetiapine 25 Mg Tablet) 50 mg PO BID [facility] Last Admin: 06/09/20 08:19 Dose: 50 mg Documented by: Sodium Chloride (0.9% Saline Lock 10 Ml Syringe) 10 - 40 ml IV UD PRN PRN Reason: SALINE FLUSH Last Admin: 06/07/20 23:19 Dose: 20 ml Documented by: Medical Necessity - Tobacco Use Smoking Status: Former smoker Route of nutrition/ use of supplements: [] Nutritional Intake: [] IV Site: [] Cuellar Catheter: [] - Assessment/Plan Antibiotics: [] Assessment/Plan: [] Active and Suspected Problems (This Medical Record has been edited. Action required.) Pneumonia due to COVID-19 virus (Acute) Respiratory insufficiency (Acute) SARS (severe acute respiratory syndrome) (Acute) covid with hypoxia - sx start 05/19. Lactate over 2. D-dimer was 0.9, CT neg for PE, on lovenox 40mg bid. Cont dex, completed remdesivir. Ucx with ecoli. Sputum now with MRSA. 06/02 started vanc. Repeat sputum again with MRSA. Zosyn stopped 06/08. Will follow, d/w Dr. Qiu
[2020-06-09] MEDS: Insulin Lispro 100 UNIT/ML INSULN.PEN SC ×2 (17:30→22:56)
--- NOTE | 2020-06-09 17:40 | RAD_ITS ---
STUDY: X-RAY - ABDOMEN/PELVIS REASON FOR EXAM: Female, 55 years old. NG PLACEMENT. TECHNIQUE: Single AP view of the abdomen / pelvis. COMPARISON: None. FINDINGS: There is bilateral basilar airspace disease. Cardiac size is likely magnified. Mild cardiomegaly possible. Enteric tube tip in distal sidehole of the gastric body in good position. Partially imaged liver appears enlarged. No evidence of obstruction. RAD/Abdomen Single View (Portable) IMPRESSION: Enteric tube appears in good position. Other findings as above. Electronically Signed: Nighat Neal MD at 6:07 EST , Service support ,
[2020-06-09] MEDS: Propofol 10MG/Ml 1,000 MG/100 ML Bottle 12.2 MG CONT INF (18:30)
[2020-06-09] MEDS: Enoxaparin 80 MG/0.8 ML Syringe SC (18:35)
[2020-06-09] MEDS: 0.9% Saline Lock 10 ML Syringe IV (18:37)
[2020-06-09 18:51] LABS: Bedside Glucose 238 mg/dL (70-110)
[2020-06-09] MEDS: QUEtiapine 25 MG Tablet 50 MG GT (22:50)
[2020-06-09 23:11] LABS: Bedside Glucose 164 mg/dL (70-110)
[2020-06-10] VITALS (39 sets, daily range): BP systolic 86–156; BP diastolic 40–85; PULSE 53–98; RESP 14–27; TEMP 37.2–38.9; O2SAT 72–99; BMI 28.1
--- NOTE | 2020-06-10 00:27 | NURSING ---
Pt core temp up to 101F, ice packs placed to kaveh groin and kaveh axilla.
[2020-06-10] MEDS: Propofol 10MG/Ml 1,000 MG/100 ML Bottle 12.2 MG CONT INF (02:15)
[2020-06-10 04:12] LABS: Absolute Lymphocyte Count 4.97 X10^3/uL (0.83-4.51); Absolute Neutrophil Count 10.8 X10^3/uL (2.0-7.7); Basophil# 0.11 X10^3/uL; Basophil% 0.6 % (0-1); Eosinophil# 0.26 X10^3/uL; Eosinophils% 1.5 % (0-5); Hematocrit 41.8 % (37-47); Lymphocyte # 4.97 X10^3/ul (4.0); Mean Corp Hgb Conc 31.1 g/dL (32-36); Mean Corpuscular Hgb 27.8 pg (27.0-32.0); Mean Corpuscular Volume 89.5 fL (81-99); Mean Platelet Vol. 10.7 fl (6.2-12.0); Monocyte# 1.21 X10^3/uL; Monocyte% 6.8 % (0-10); NRBC Flagged by Analyzer 0 % (0-5); Neutrophil # 10.76 X10^3/uL (2.7-7.7); Neutrophil % 60.8 % (47-70); Platelet Count 317 K/mm3 (150-450); RBC Distribution Width CV 13.7 % (11.6-14.6); Red Blood Count 4.67 M/mm3 (4.2-5.4); White Blood Count 17.7 K/mm3 (4.4-11.0)
[2020-06-10 04:24] LABS: Anion Gap 9 (5-15); BUN 23 mg/dL (7-18); BUN/Creat Ratio 35.1 RATIO (10-20); Calcium,Total 9.1 mg/dL (8.5-10.1); Chloride 110 mmol/L (98-107); Creatinine, Serum 0.66 mg/dL (0.55-1.02); EST Glomerular Filtration Rate 100 mL/min (>60); Est Glom Filt Rate - Afr Amer 121 mL/min (>60); Estimated Creatinine Clearance 87.68 ml/min; Glucose 110 mg/dL (74-106); Potassium 3.4 mmol/L (3.5-5.1); Sodium Level 141 mmol/L (136-145)
[2020-06-10 04:26] LABS: CPK Total, Creatine Kinase 19 U/L (26-192); Triglycerides 263 mg/dL
[2020-06-10] MEDS: Enoxaparin 80 MG/0.8 ML Syringe SC ×2 (05:29→16:56)
--- NOTE | 2020-06-10 05:39 | PN_ITS ---
Subjective: The patient was seen and examined at the bedside this morning. Events from the last 24 hours have been reviewed. The patient is currently afebrile, hemodynamically stable and maintaining appropriate oxygen saturations on assist control mode of mechanical ventilation with an FiO2 requirement of 50%. Yesterday, the patient was able to be extubated in the morning to nasal cannula supplemental oxygen. She did well from a respiratory perspective for a number of hours, only to develop rather acute onset respiratory distress in the early afternoon, which was felt to be the consequence of flash pulmonary edema secondary to acute laryngospasm or hypertensive emergency. The patient did require reintubation. As a consequence of being restarted on sedative medications, the patient once again had to be restarted as well on Levophed. Her white count this morning has increased to 18,000. Potassium is low this morning at 3.4. Creatinine is stable. She remains on Decadron, as well as twice daily scheduled IV Lasix. She is currently documented to be overall net +8 L for the hospital admission. Objective: The patient's most recent lab work, culture data and imaging studies have all been personally reviewed. Coronavirus PCR was positive on May 22. Urine culture was positive for presumptive E. coli. Sputum culture was positive for MRSA. General: Alert, Confused, Disoriented, - - Remains intubated and mechanically ventilated. HEENT: Atraumatic, PERRLA, Normocephalic Oral: No Gingival or Mucosal Lesions/ Ulcerations, - - Endotracheal and OG tubes in place Neck: Supple, No Nodes, Trachea Midline Lungs: Diminished, Tachypneic Cardiovascular: Normal S1, Normal S2, No murmurs, Bradycardic Abdomen: Bowel Sounds Present, Soft, Non Tender Extremities: No clubbing, No cyanosis, Edema Skin: - - No significant change from previous Musculoskeletal: No Tenderness to Palpation of Joints or Extremities Lymphatic: No Cervical, Supraclavicular, or Inguinal Adenopathy Neurological: Neuro grossly intact, - - Moves all extremities spontaneously. Psych/Mental Status: Agitated, Restless Vital Signs Temp Pulse Resp BP Pulse Ox 100.7 F H 58 L 21 H 106/47 L 97 06/10/20 05:00 06/10/20 05:00 06/10/20 05:00 06/10/20 05:00 06/10/20 05:00 Oxygen Flow Rate (L/min) 6 Oxygen Delivery Method Mechanical Ventilator Weight: 169 lb 1.513 oz Body Mass Index (BMI) 28.7 Finger Stick Blood Glucose 377 Intake and Output for Last 24 Hours 06/08/20 06/09/20 06/10/20 23:59 23:59 23:59 Intake Total 2906.60 / 2920.48 3492.03 / 3557.13 992.97 / 992.97 Output Total 3700 / 4475 3175 / 3425 450 / 450 Balance -793.40 / -1554.52 317.03 / 132.13 542.97 / 542.97 Labs (Last 48 Hours) 06/08/20 06/08/20 06/08/20 06:30 06:30 06:39 WBC 11.5 H RBC 4.16 L Hgb 11.9 L Hct 37.4 MCV 89.9 MCH 28.6 MCHC 31.8 L RDW Std Deviation 44.4 H RDW Coeff of Osorio 13.7 Plt Count 204 MPV 11.9 Immature Gran % (Auto) 3.100 H Neut % (Auto) 65.9 Lymph % (Auto) 23.8 [place] % (Auto) 5.9 Eos % (Auto) 1.0 Baso % (Auto) 0.3 Absolute Neuts (auto) 7.6 Absolute Lymphs (auto) 2.74 Nucleated RBC % 0 Sodium 142 Potassium 2.9 L Chloride 104 Carbon Dioxide 30.0 Anion Gap 8 BUN 19 H Creatinine 0.46 L Estim Creat Clear Calc 125.81 Est GFR (MDRD) Af Amer 183 Est GFR (MDRD) Non-Af 151 BUN/Creatinine Ratio 41.5 H Glucose 103 Calcium 7.8 L Magnesium Total Bilirubin AST ALT Alkaline Phosphatase Total Creatine Kinase Total Protein Albumin Globulin Albumin/Globulin Ratio Triglycerides Vancomycin Trough POC Glucose 106 06/08/20 06/08/20 06/08/20 12:42 16:22 18:01 WBC RBC Hgb Hct MCV MCH MCHC RDW Std Deviation RDW Coeff of Osorio Plt Count MPV Immature Gran % (Auto) Neut % (Auto) Lymph % (Auto) [place] % (Auto) Eos % (Auto) Baso % (Auto) Absolute Neuts (auto) Absolute Lymphs (auto) Nucleated RBC % Sodium Potassium Chloride Carbon Dioxide Anion Gap BUN Creatinine Estim Creat Clear Calc Est GFR (MDRD) Af Amer Est GFR (MDRD) Non-Af BUN/Creatinine Ratio Glucose Calcium Magnesium Total Bilirubin AST ALT Alkaline Phosphatase Total Creatine Kinase Total Protein Albumin Globulin Albumin/Globulin Ratio Triglycerides Vancomycin Trough 15.1 H POC Glucose 97 150 H 06/08/20 06/09/20 06/09/20 23:30 06:42 06:55 WBC 11.0 RBC 4.71 Hgb 13.2 Hct 45.4 MCV 96.4 D MCH 28.0 MCHC 29.1 L D RDW Std Deviation 48.1 H RDW Coeff of Osorio 13.8 Plt Count 214 MPV 10.7 Immature Gran % (Auto) 1.900 H Neut % (Auto) 69.3 Lymph % (Auto) 21.5 [place] % (Auto) 5.7 Eos % (Auto) 0.8 Baso % (Auto) 0.8 Absolute Neuts (auto) 7.6 Absolute Lymphs (auto) 2.37 Nucleated RBC % 0 Sodium Potassium Chloride Carbon Dioxide Anion Gap BUN Creatinine Estim Creat Clear Calc Est GFR (MDRD) Af Amer Est GFR (MDRD) Non-Af BUN/Creatinine Ratio Glucose Calcium Magnesium Total Bilirubin AST ALT Alkaline Phosphatase Total Creatine Kinase Total Protein Albumin Globulin Albumin/Globulin Ratio Triglycerides Vancomycin Trough POC Glucose 167 H 110 06/09/20 06/09/20 06/09/20 06:55 12:18 17:28 WBC RBC Hgb Hct MCV MCH MCHC RDW Std Deviation RDW Coeff of Osorio Plt Count MPV Immature Gran % (Auto) Neut % (Auto) Lymph % (Auto) [place] % (Auto) Eos % (Auto) Baso % (Auto) Absolute Neuts (auto) Absolute Lymphs (auto) Nucleated RBC % Sodium 141 Potassium 3.3 L Chloride 107 Carbon Dioxide 25.0 Anion Gap 9 BUN 17 Creatinine 0.52 L Estim Creat Clear Calc 111.29 Est GFR (MDRD) Af Amer 159 Est GFR (MDRD) Non-Af 132 BUN/Creatinine Ratio 32.9 H Glucose 107 H Calcium 9.2 Magnesium 2.2 Total Bilirubin 0.60 AST 46 H ALT 78 H Alkaline Phosphatase 108 Total Creatine Kinase Total Protein 7.6 Albumin 2.4 L Globulin 5.2 H Albumin/Globulin Ratio 0.5 L Triglycerides Vancomycin Trough POC Glucose 118 H 238 H 06/09/20 06/10/20 06/10/20 22:47 03:45 03:45 WBC 17.7 H RBC 4.67 Hgb 13.0 Hct 41.8 MCV 89.5 D MCH 27.8 MCHC 31.1 L D RDW Std Deviation 44.0 H RDW Coeff of Osorio 13.7 Plt Count 317 MPV 10.7 Immature Gran % (Auto) 2.300 H Neut % (Auto) 60.8 Lymph % (Auto) 28.0 [place] % (Auto) 6.8 Eos % (Auto) 1.5 Baso % (Auto) 0.6 Absolute Neuts (auto) 10.8 H Absolute Lymphs (auto) 4.97 H Nucleated RBC % 0 Sodium Potassium Chloride Carbon Dioxide Anion Gap BUN Creatinine Estim Creat Clear Calc Est GFR (MDRD) Af Amer Est GFR (MDRD) Non-Af BUN/Creatinine Ratio Glucose Calcium Magnesium Total Bilirubin AST ALT Alkaline Phosphatase Total Creatine Kinase 19 L Total Protein Albumin Globulin Albumin/Globulin Ratio Triglycerides 263 H Vancomycin Trough POC Glucose 164 H 06/10/20 03:45 WBC RBC Hgb Hct MCV MCH MCHC RDW Std Deviation RDW Coeff of Osorio Plt Count MPV Immature Gran % (Auto) Neut % (Auto) Lymph % (Auto) [place] % (Auto) Eos % (Auto) Baso % (Auto) Absolute Neuts (auto) Absolute Lymphs (auto) Nucleated RBC % Sodium 141 Potassium 3.4 L Chloride 110 H Carbon Dioxide 22.0 Anion Gap 9 BUN 23 H Creatinine 0.66 Estim Creat Clear Calc 87.68 Est GFR (MDRD) Af Amer 121 Est GFR (MDRD) Non-Af 100 BUN/Creatinine Ratio 35.1 H Glucose 110 H Calcium 9.1 Magnesium Total Bilirubin AST ALT Alkaline Phosphatase Total Creatine Kinase Total Protein Albumin Globulin Albumin/Globulin Ratio Triglycerides Vancomycin Trough POC Glucose Microbiology 06/07/20 10:40 Sputum, Induced/Lukens Gram Stain - Final 06/07/20 10:40 Sputum, Induced/Lukens Respiratory Culture - Final Meth. resistant Staph. aureus Clinical Impression(s) from Imaging Studies Chest X-Ray 05/26/20 03:41 IMPRESSION: Multifocal pneumonia to include viral pneumonia. Electronically Signed: Forrest Cee MD at 4:28 EST , Service support , Chest CTA 05/26/20 04:23 IMPRESSION: No pulmonary embolus or thoracic aortic dissection. Diffuse groundglass opacities compatible with multifocal pneumonia very suggestive of viral pneumonia. Multiple small mediastinal lymph nodes. Electronically Signed: Forrest Cee MD at 5:18 EST , Service support , Chest X-Ray 05/28/20 04:38 IMPRESSION: GA confluent airspace disease likely pneumonia multilobular and bilateral. Aeration has worsened. Electronically Signed: Nighat Neal MD at 5:48 EST , Service support , Chest X-Ray 05/28/20 19:20 IMPRESSION: 1. Tubes and catheters as described. 2. Bilateral lower lobe pulmonary infiltrates unchanged from prior exam. Electronically Signed: Xavier Beach DO at 19:57 EST Tel [phone], Service support , KUB X-Ray 05/28/20 19:20 IMPRESSION: 1. OG tube as described. 2. No acute intra-abdominal process. 3. Persistent bibasilar infiltrates. Electronically Signed: Xavier Beach DO at 19:52 EST Tel [phone], Service support , Chest X-Ray 05/31/20 08:37 IMPRESSION: All the support tubes are in good position. Residual bilateral pulmonary infiltrates although there has been a mild degree of improvement as compared to prior study. Electronically Signed: Mauricio Sifuentes at 9:14 EST , Service support , Chest X-Ray 05/31/20 19:30 IMPRESSION: Endotracheal tube at the right main bronchus. Worsening bilateral edema or pneumonia. Electronically Signed: Johny Calderon MD at 21:23 EST , Service support , ADDENDUM: 05/31/208 IMPRESSION: Endotracheal tube at the right main bronchus. Worsening bilateral edema or pneumonia. N.B. : Tina Hicks, RN , RN, confirmed on 05/31/2020 21:31:35 (ET) that the healthcare facility has received the radiology report. Electronically Signed: Johny Calderon MD at 21:23 EST , Service support , KUB X-Ray 05/31/20 20:40 IMPRESSION: Gastric tube with tip in the body. Electronically Signed: Verona Esparza at 21:13 EST Tel , Service support , Chest X-Ray 06/05/20 07:25 IMPRESSION: Lines and tubes as above with continued diffuse similar patchy airspace disease throughout the lung parenchyma. Electronically Signed: Carroll Lamb DO at 10:00 EST , Service support , Chest X-Ray 06/09/20 12:39 IMPRESSION: Stable diffuse patchy airspace opacities in both lungs. Electronically Signed: Carey Dey, at 14:18 EST Tel , Service support , Chest X-Ray 06/09/20 13:24 IMPRESSION: Stable diffuse patchy airspace opacities in both lungs. Electronically Signed: Carey Dey at 13:40 EST Tel , Service support , Medical Necessity - Tobacco Use Smoking Status: Former smoker Assessment/Plan All Active Problems (This Medical Record has been edited. Action required.) Pneumonia due to COVID-19 virus (Acute) Respiratory insufficiency (Acute) SARS (severe acute respiratory syndrome) (Acute) RECOMMENDATIONS: 1. Continue to wean FiO2 and PEEP to maintain oxygen saturations at or above 90%. 2. Continue current sedation regimen along with scheduled Seroquel. 3. Continue antimicrobials per ID recommendations. 4. Restart tube feeds today. 5. Continue Levophed and wean to maintain a mean arterial pressure at or above 65 mmHg. 6. Continue scheduled IV Lasix as tolerated by hemodynamics and renal function. 7. Additional potassium repletion as ordered. 8. Continue Decadron as ordered. 9. Continue therapeutic Lovenox. 10. Continue Lantus and sliding scale insulin coverage. IMPRESSIONS: 1. Acute hypoxemic respiratory failure secondary to COVID-19 pneumonia The patient continued to decompensate from a respiratory perspective following admission, eventually requiring ICU transfer and subsequent intubation on May 28. The patient has completed a treatment course of remdesivir and remains on Decadron. Given MRSA identified on sputum culture, antimicrobials will be continued, per ID recommendations. Although the patient passed a spontaneous breathing trial and was extubated on June 09, a short time later the patient decompensated from a respiratory perspective and had to be reintubated. FiO2 and PEEP will be weaned as tolerated to maintain oxygen saturations at or above 90%. Diuretic therapy will be continued as tolerated by hemodynamics and renal function. Will begin discussion with the patient's family regarding possible need for tracheostomy and PEG tube placement. 2. Septic shock Continue current supportive measures including vasopressor support to maintain a mean arterial pressure at or above 65 mmHg. Continue antimicrobials per ID recommendations. 3. Hypokalemia Additional electrolyte repletion as ordered. Recheck levels in the morning. 4. Poorly controlled diabetes mellitus Continue Lantus and sliding scale insulin coverage. 5. ICU delirium Continue Seroquel as ordered. 6. Obesity/GERD Complicates care, management, recovery and prognosis. Aggressive physical therapy is warranted. TIME: 35 minutes of critical care time, independent of procedures, was spent addressing the patient's acute hypoxemic respiratory failure, COVID-19 pneumonia, septic shock, acute kidney injury, diabetes mellitus, ICU delirium, review of all data and collaboration with the care team. ([id number]) [phone]: [id number] Critical care first hour
[2020-06-10] MEDS: TITRATION PARAMETER CHANGE 1 EACH IV (05:47)
[2020-06-10] MEDS: Menthol/Lanolin/Calamine/Znox 113 GM Tube 1 APPLIC TOPICAL ×2 (08:11→22:04)
[2020-06-10] MEDS: Chlorhexidine 15 ML PO ×2 (08:12→22:07)
[2020-06-10] MEDS: dexAMETHasone 4 MG Tablet 6 MG GT (08:13)
[2020-06-10] MEDS: Furosemide 100 MG/10 ML Vial 80 MG IV ×2 (08:13→16:29)
[2020-06-10] MEDS: Docusate Sodium 100 MG/10 ML UDC GT ×2 (08:13→22:03)
[2020-06-10] MEDS: Famotidine 200 MG/20 ML MDV 20 MG in 0.9% Normal Saline (Pres. free 8 ML 330 MG IV (08:14)
[2020-06-10] MEDS: Nystatin Powder 15gm Bottle 1 APPLIC TOPICAL ×2 (08:14→22:05)
[2020-06-10] MEDS: QUEtiapine 25 MG Tablet 50 MG GT ×2 (08:15→22:04)
[2020-06-10] MEDS: Dexmedetomidine 1,000 mcg in 0.9% NS 240 mL 26.8 MCG CONT INF ×3 (09:55→23:30)
--- NOTE | 2020-06-10 10:05 | PCM.NTREPORT ---
Nutrition Therapy Report - History Nutrition Services has been consulted to:: Manage nutrient details of diet order, Manage enteral nutrition Current diet / nutrition support order:: NPO - Anthropometric Measurements Height:: 5 ft 5 in Weight:: 76.7 kg Body Mass Index (BMI):: 28.1 - Relevant Labs Relevant Labs:: WBC 17.7 K/mm3 (4.4-11.0) H 06/10/20 03:45 RBC 4.16 M/mm3 (4.2-5.4) L 06/08/20 06:30 Hgb 11.9 g/dL (12.0-15.0) L 06/08/20 06:30 Hct 50.5 % (37-47) H 06/07/20 05:00 MCV 106.0 fL (81-99) H D 06/05/20 04:10 MCHC 31.1 g/dL (32-36) L D 06/10/20 03:45 RDW Std Deviation 44.0 fl (35.1-43.9) H 06/10/20 03:45 Immature Gran % (Auto) 2.300 % (0.0-0.9) H 06/10/20 03:45 Neut % (Auto) 71.6 % (47-70) H 06/05/20 04:10 Lymph % (Auto) 14.4 % (19-41) L 06/04/20 04:15 Absolute Neuts (auto) 10.8 X10^3/uL (2.0-7.7) H 06/10/20 03:45 Absolute Lymphs (auto) 4.97 X10^3/uL (0.83-4.51) H 06/10/20 03:45 D-Dimer Quant (PE/DVT) 1.49 FEU/ug/m (0.27-0.49) H* 05/29/20 11:40 Sodium 135 mmol/L (136-145) L 05/29/20 05:00 Potassium 3.4 mmol/L (3.5-5.1) L 06/10/20 03:45 Chloride 110 mmol/L (98-107) H 06/10/20 03:45 Carbon Dioxide 33.0 mmol/L (21.0-32.0) H 06/07/20 05:00 Anion Gap 3 (5-15) L 06/06/20 04:40 BUN 23 mg/dL (7-18) H 06/10/20 03:45 Creatinine 0.52 mg/dL (0.55-1.02) L 06/09/20 06:55 Est GFR (MDRD) Non-Af 50 mL/min (>60) L 05/29/20 05:00 BUN/Creatinine Ratio 35.1 RATIO (10-20) H 06/10/20 03:45 Glucose 110 mg/dL (74-106) H 06/10/20 03:45 Hemoglobin A1c 10.8 % (3.8-5.6) H 05/26/20 03:48 Lactic Acid 2.8 mmol/L (0.4-1.9) H* 05/26/20 03:48 Calcium 7.8 mg/dL (8.5-10.1) L 06/08/20 06:30 Magnesium 1.4 mg/dL (1.6-2.6) L 06/03/20 04:30 Direct Bilirubin 0.35 mg/dL (0.00-0.30) H 05/29/20 05:00 AST 46 U/L (15-37) H 06/09/20 06:55 ALT 78 U/L (13-56) H 06/09/20 06:55 Alkaline Phosphatase 129 U/L (45-117) H 06/07/20 05:00 Total Creatine Kinase 19 U/L (26-192) L 06/10/20 03:45 Total Protein 6.0 g/dL (6.4-8.2) L 06/06/20 04:40 Albumin 2.4 g/dL (3.2-5.0) L 06/09/20 06:55 Globulin 5.2 g/dL (2.2-4.2) H 06/09/20 06:55 Albumin/Globulin Ratio 0.5 RATIO (0.9-2.4) L 06/09/20 06:55 Triglycerides 263 mg/dL (-199) H 06/10/20 03:45 HDL Cholesterol 22 mg/dL (40-) L 05/27/20 05:48 Procalcitonin 0.38 ng/mL (0.00-0.09) H 05/29/20 05:00 - Assessment Food / Nutrition-Related History:: Discussed in ICU rounds. Reintubated yesterday. Per rounds, okay to reinitiate tube feeds. Wt decrease of 4.9 kg since last review, continues on IV lasix. Generalized 2+ pitting edema per nursing documentation. Noted last BM 06/07. - Nutrition Intervention Nutrition Prescription:: [id number] calories, 90-115 g protein/day - Food / Nutrient Delivery Interventions Summary of nutrition intervention:: Will restart tube feeds at 50% of goal rate d/t previous issues w/ intolerance. Nutrition support ordered as / adjusted to:: via OGT- Vital AF 1.2 at 30mL/hour w/ 100mL H2O flush every 6 hours. As tolerated, will gradually increase to goal of 60mL/hour to provide 1728 calories, 108 g protein, and 1567mL total fluid/day. - MNT Monitoring Further MNT monitoring and evaluation required?: Yes MNT Follow-up in:: 1-2 days
[2020-06-10] MEDS: Propofol 10MG/Ml 1,000 MG/100 ML Bottle 16.1 MG CONT INF ×3 (10:19→21:00)
--- NOTE | 2020-06-10 11:52 | PN_ITS ---
Patient Problems: Active and Suspected Problems (This Medical Record has been edited. Action required.) Pneumonia due to COVID-19 virus (Acute) Respiratory insufficiency (Acute) SARS (severe acute respiratory syndrome) (Acute) Reason for Visit: COVID 19 Subjective: Reintubated due to flash pulmonary edema. Vitals/I&O's: Vital Signs Temp Pulse Resp BP Pulse Ox 38.4 C H 61 20 H 103/53 L 98 06/10/20 11:00 06/10/20 11:00 06/10/20 11:00 06/10/20 11:00 06/10/20 11:00 Oxygen Flow Rate (L/min) 6 Oxygen Delivery Method Mechanical Ventilator Weight: 76.7 kg Body Mass Index (BMI) 28.1 Finger Stick Blood Glucose 377 Intake and Output for Last 24 Hours 06/08/20 06/09/20 06/10/20 23:59 23:59 23:59 Intake Total 2906.60 / 2920.48 3492.03 / 3557.13 1488.25 / 1488.25 Output Total 3700 / 4475 3175 / 3425 655 / 655 Balance -793.40 / -1554.52 317.03 / 132.13 833.25 / 833.25 General: - - intubated and sedated. HEENT: Atraumatic, Normocephalic Oral: Moist Mucosa, No Gingival or Mucosal Lesions/ Ulcerations Neck: No Nodes, Thyroid Normal Size and Texture Lungs: Clear to auscultation, Normal air movement, No rhonchi, No wheeze Cardiovascular: Regular rate, Regular Rhythm, Normal S1, Normal S2 Abdomen: Bowel Sounds Present, Soft, Non Tender, Non-Distended, No Hepato- splenomegaly Extremities: No edema, No Calf Tenderness Skin: No rashes, No breakdown Psych/Mental Status: Normal Affect, Appropriate Microbiology Past 72 Hours 06/07/20 10:40 Sputum, Induced/Lukens Gram Stain - Final 06/07/20 10:40 Sputum, Induced/Lukens Respiratory Culture - Final Meth. resistant Staph. aureus Laboratory Results 06/09/20 12:18: POC Glucose 118 H 06/09/20 17:28: POC Glucose 238 H 06/09/20 22:47: POC Glucose 164 H 06/10/20 03:45: Total Creatine Kinase 19 L, Triglycerides 263 H 06/10/20 03:45: WBC 17.7 H, RBC 4.67, Hgb 13.0, Hct 41.8, MCV 89.5 D, MCH 27.8, MCHC 31.1 L D, RDW Std Deviation 44.0 H, RDW Coeff of Osorio 13.7, Plt Count 317, MPV 10.7, Immature Gran % (Auto) 2.300 H, Neut % (Auto) 60.8, Lymph % (Auto) 28.0, [place] % (Auto) 6.8, Eos % (Auto) 1.5, Baso % (Auto) 0.6, Absolute Neuts (auto) 10.8 H, Absolute Lymphs (auto) 4.97 H, Nucleated RBC % 0 06/10/20 03:45: Sodium 141, Potassium 3.4 L, Chloride 110 H, Carbon Dioxide 22.0, Anion Gap 9, BUN 23 H, Creatinine 0.66, Estim Creat Clear Calc 87.68, Est GFR (MDRD) Af Amer 121, Est GFR (MDRD) Non-Af 100, BUN/Creatinine Ratio 35.1 H, Glucose 110 H, Calcium 9.1 06/10/20 06:55: Phosphorus 4.0, Magnesium 2.0 Current Medications Albuterol Sulfate (Albuterol Ih 8.5 Gm (Proair) Inhaler (200 Puffs)) 2 puff INHALATION Q4H PRN PRN PRN Reason: SOB/WHEEZING Albuterol Sulfate (Albuterol 2.5 Mg/3 Ml Vial.Neb.) 2.5 mg INHALATION Q2H PRN PRN PRN Reason: dyspnea, wheezing Last Admin: 05/31/20 07:45 Dose: 2.5 mg Documented by: Calamine/Phenol (Menthol/Lanolin/Calamine/Znox 113 Gm Tube) 1 applic TOPICAL BID OLLIE; Protocol Last Admin: 06/10/20 08:11 Dose: 1 applic Documented by: Chlorhexidine Gluconate (Chlorhexidine 15 Ml) 15 ml PO BID OLLIE Last Admin: 06/10/20 08:12 Dose: 15 ml Documented by: Dexamethasone (Dexamethasone 4 Mg Tablet) 6 mg GT DAILY OLLIE Stop: 06/14/20 10:01 Last Admin: 06/10/20 08:13 Dose: 6 mg Documented by: Dextrose (Dextrose 50%-Water 25 Gm/50 Ml Disp.Syrin) 0 gm IV X1 PRN; Protocol PRN Reason: Hypoglycemia Docusate Sodium (Docusate Sodium 100 Mg/10 Ml Udc) 100 mg GT BID [facility] Last Admin: 06/10/20 08:13 Dose: 100 mg Documented by: Enoxaparin Sodium (Enoxaparin 80 Mg/0.8 Ml Syringe) 80 mg SC Q12@0600,1800 [facility] Last Admin: 06/10/20 05:29 Dose: 80 mg Documented by: Famotidine (Famotidine 20 Mg Tablet) 20 mg GT BID [facility] Furosemide (Furosemide 100 Mg/10 Ml Vial) 80 mg IV BID@1000,1700 [facility] Last Admin: 06/10/20 08:13 Dose: 80 mg Documented by: Glucagon (Glucagon 1 Mg/Ml Syringe) 1 mg IM .X1 PRN PRN Reason: Hypoglycemia Sodium Chloride () 250 mls @ 15 mls/hr IV .[id number] PRN PRN Reason: Saline Flush Last Infusion: 06/10/20 07:00 Dose: 0 mls/hr Documented by: Sodium Chloride () 250 mls @ 15 mls/hr IV .[id number] PRN PRN Reason: Additional IVPB Infusion Norepinephrine Bitartrate 8 mg (/ Sodium Chloride) 250 mls @ 9.375 mls/hr CONT INF .[id number] [facility]; Protocol Last Titration: 06/10/20 10:00 Dose: 15 mcg/min, 28.1 mls/hr Documented by: Vancomycin IV Pharmacy to Dose (1 ea/ Sodium Chloride) 500 mls @ 250 mls/hr IV X1 PRN; Protocol PRN Reason: Rx to Dose Vancomycin HCl 2,000 mg/ (Sodium Chloride) 540 mls @ 250 mls/hr IV Q12H [facility] Last Infusion: 06/10/20 05:30 Dose: Infused Documented by: Dexmedetomidine HCl 1,000 mcg/ (Sodium Chloride) 250 mls @ 9.588 mls/hr CONT INF .Q26H5M [facility]; Protocol Last Titration: 06/10/20 10:00 Dose: 1.4 mcg/kg/hr, 26.8 mls/hr Documented by: Propofol (Diprivan) 1,000 mg in 100 mls @ 9.204 mls/hr CONT INF .[id number] [facility]; Protocol Last Admin: 06/10/20 10:19 Dose: 35 mcg/kg/min, 16.1 mls/hr Documented by: Fentanyl Citrate 1,000 mcg/ (Sodium Chloride) 100 mls @ 10 mls/hr CONT INF .Q10H [facility]; Protocol Last Admin: 06/10/20 10:20 Dose: 200 mcg/hr, 20 mls/hr Documented by: Enteral Nutritional Formula (Vital Af 1.2 Rick Liquid) 1,000 mls @ 30 mls/hr GT .[id number] [facility] Insulin Glargine (Insulin Glargine 100 Units/Ml Pen) 60 units SC BID [facility] Last Admin: 06/09/20 22:49 Dose: 60 u Documented by: Insulin Human Lispro (Insulin Lispro 100 Unit/Ml Insuln.Pen) 0 unit SC Q6H [facility]; Protocol Last Admin: 06/10/20 05:03 Dose: Not Given Documented by: Melatonin (Melatonin 3 Mg Tablet) 3 mg GT QHS PRN PRN PRN Reason: INSOMNIA Nystatin (Nystatin Powder 15gm Bottle) 1 applic TOPICAL BID [facility]; Protocol Last Admin: 06/10/20 08:14 Dose: 1 applic Documented by: Ondansetron HCl (Ondansetron 4 Mg/2 Ml Vial) 4 mg IV Q8H PRN PRN PRN Reason: NAUSEA/VOMITING Polyethylene Glycol (Polyethylene Glycol 3350 17 Gm Packet) 17 gm GT DAILY PRN PRN Reason: Constipation Potassium Chloride (Potassium Chl Soln 20 Meq/15 Ml Udc) 60 meq GT BID@1000,1700 [facility] Quetiapine Fumarate (Quetiapine 25 Mg Tablet) 50 mg GT BID [facility] Last Admin: 06/10/20 08:15 Dose: 50 mg Documented by: Sodium Chloride (0.9% Saline Lock 10 Ml Syringe) 10 - 40 ml IV UD PRN PRN Reason: SALINE FLUSH Last Admin: 06/09/20 18:37 Dose: 20 ml Documented by: STROKE Vital Signs/Narrative: Vital Signs Temp Pulse Resp BP BP Pulse Ox 06/10/20 11:00 38.4 C H 61 20 H 103/53 L 98 06/10/20 10:00 38.3 C H 60 21 H 111/54 L 111/54 L 97 06/10/20 09:47 59 L 22 H 96 06/10/20 09:30 86/45 L 06/10/20 09:00 38.1 C H 83 19 H 108/57 L 108/57 L 72 06/10/20 08:00 37.8 C H 61 18 114/46 L 114/46 L 92 Medical Necessity - Tobacco Use Smoking Status: Former smoker Assessment/Plan All Active Problems (This Medical Record has been edited. Action required.) Pneumonia due to COVID-19 virus (Acute) Respiratory insufficiency (Acute) SARS (severe acute respiratory syndrome) (Acute) 1. acute hypoxic respiratory failure * 2/2 COVID 19 pneumonia/ALI, MRSA pneumonia and now flash pulmonary edema * 06/09 extubated, then reintubated 2. acute COVID 19 pneumonia/ALI * completed dexa and rem-d * dexa restarted 06/10-06/14/2020 3. Agitation * improved as of 06/09 * on dexmedetomidine and quetiapine * ?ICANS/YONY? 4. DM2 * fair control * glargine 60 BID + SSI 5. Septic shock * 2/2 COVID 19 and MRSA pneumonia and UTI * on norepi 6. MRSA pneumonia * vancomycin 7. UTI * E. coli, resistance to amp and amp/SB * completed pip/tazo 8. VTE prophylaxis: anticoagulation Inpatient E&M: 34368 Subs Hosp L2
[2020-06-10] MEDS: Insulin Lispro 100 UNIT/ML INSULN.PEN SC ×2 (12:31→23:26)
[2020-06-10] MEDS: Vital AF 1.2 Cal Liquid 1,000 ML 30 ML GT (12:31)
--- NOTE | 2020-06-10 12:43 | PN.ID_ITS ---
Patient Problems: Active and Suspected Problems (This Medical Record has been edited. Action required.) Pneumonia due to COVID-19 virus (Acute) Respiratory insufficiency (Acute) SARS (severe acute respiratory syndrome) (Acute) Subjective: On vent, fever to 101.2 - Physical Exam Vitals/I&O's: Vital Signs Temp Pulse Resp BP Pulse Ox 101.2 F H 61 20 H 103/53 L 98 06/10/20 11:00 06/10/20 11:00 06/10/20 11:00 06/10/20 11:00 06/10/20 11:00 Oxygen Flow Rate (L/min) 6 Oxygen Delivery Method Mechanical Ventilator Weight: 76.7 kg Body Mass Index (BMI) 28.1 Finger Stick Blood Glucose 377 Intake and Output for Last 24 Hours 06/08/20 06/09/20 06/10/20 23:59 23:59 23:59 Intake Total 2906.60 / 2920.48 3492.03 / 3557.13 1488.25 / 1488.25 Output Total 3700 / 4475 3175 / 3425 2080 / 2080 Balance -793.40 / -1554.52 317.03 / 132.13 -591.75 / -591.75 General: Non-Cooperative Lungs: Diminished Cardiovascular: Regular rate, Regular Rhythm Abdomen: Soft, Non Tender, Non-Distended Skin: No rashes Microbiology Past 72 Hours 06/07/20 10:40 Sputum, Induced/Lukens Gram Stain - Final 06/07/20 10:40 Sputum, Induced/Lukens Respiratory Culture - Final Meth. resistant Staph. aureus Laboratory Results 06/09/20 12:18: POC Glucose 118 H 06/09/20 17:28: POC Glucose 238 H 06/09/20 22:47: POC Glucose 164 H 06/10/20 03:45: Total Creatine Kinase 19 L, Triglycerides 263 H 06/10/20 03:45: WBC 17.7 H, RBC 4.67, Hgb 13.0, Hct 41.8, MCV 89.5 D, MCH 27.8, MCHC 31.1 L D, RDW Std Deviation 44.0 H, RDW Coeff of Osorio 13.7, Plt Count 317, MPV 10.7, Immature Gran % (Auto) 2.300 H, Neut % (Auto) 60.8, Lymph % (Auto) 28.0, Stone % (Auto) 6.8, Eos % (Auto) 1.5, Baso % (Auto) 0.6, Absolute Neuts (auto) 10.8 H, Absolute Lymphs (auto) 4.97 H, Nucleated RBC % 0 06/10/20 03:45: Sodium 141, Potassium 3.4 L, Chloride 110 H, Carbon Dioxide 22.0, Anion Gap 9, BUN 23 H, Creatinine 0.66, Estim Creat Clear Calc 87.68, Est GFR (MDRD) Af Amer 121, Est GFR (MDRD) Non-Af 100, BUN/Creatinine Ratio 35.1 H, Glucose 110 H, Calcium 9.1 06/10/20 06:55: Phosphorus 4.0, Magnesium 2.0 Current Medications Albuterol Sulfate (Albuterol Ih 8.5 Gm (Proair) Inhaler (200 Puffs)) 2 puff INHALATION Q4H PRN PRN PRN Reason: SOB/WHEEZING Albuterol Sulfate (Albuterol 2.5 Mg/3 Ml Vial.Neb.) 2.5 mg INHALATION Q2H PRN PRN PRN Reason: dyspnea, wheezing Last Admin: 05/31/20 07:45 Dose: 2.5 mg Documented by: Calamine/Phenol (Menthol/Lanolin/Calamine/Znox 113 Gm Tube) 1 applic TOPICAL BID [facility]; Protocol Last Admin: 06/10/20 08:11 Dose: 1 applic Documented by: Chlorhexidine Gluconate (Chlorhexidine 15 Ml) 15 ml PO BID [facility] Last Admin: 06/10/20 08:12 Dose: 15 ml Documented by: Dexamethasone (Dexamethasone 4 Mg Tablet) 6 mg GT DAILY [facility] Stop: 06/14/20 10:01 Last Admin: 06/10/20 08:13 Dose: 6 mg Documented by: Dextrose (Dextrose 50%-Water 25 Gm/50 Ml Disp.Syrin) 0 gm IV X1 PRN; Protocol PRN Reason: Hypoglycemia Docusate Sodium (Docusate Sodium 100 Mg/10 Ml Udc) 100 mg GT BID [facility] Last Admin: 06/10/20 08:13 Dose: 100 mg Documented by: Enoxaparin Sodium (Enoxaparin 80 Mg/0.8 Ml Syringe) 80 mg SC Q12@0600,1800 [facility] Last Admin: 06/10/20 05:29 Dose: 80 mg Documented by: Famotidine (Famotidine 20 Mg Tablet) 20 mg GT BID [facility] Furosemide (Furosemide 100 Mg/10 Ml Vial) 80 mg IV BID@1000,1700 [facility] Last Admin: 06/10/20 08:13 Dose: 80 mg Documented by: Glucagon (Glucagon 1 Mg/Ml Syringe) 1 mg IM .X1 PRN PRN Reason: Hypoglycemia Sodium Chloride () 250 mls @ 15 mls/hr IV .[id number] PRN PRN Reason: Saline Flush Last Infusion: 06/10/20 07:00 Dose: 0 mls/hr Documented by: Sodium Chloride () 250 mls @ 15 mls/hr IV .[id number] PRN PRN Reason: Additional IVPB Infusion Norepinephrine Bitartrate 8 mg (/ Sodium Chloride) 250 mls @ 9.375 mls/hr CONT INF .[id number] [facility]; Protocol Last Titration: 06/10/20 10:00 Dose: 15 mcg/min, 28.1 mls/hr Documented by: Vancomycin IV Pharmacy to Dose (1 ea/ Sodium Chloride) 500 mls @ 250 mls/hr IV X1 PRN; Protocol PRN Reason: Rx to Dose Vancomycin HCl 2,000 mg/ (Sodium Chloride) 540 mls @ 250 mls/hr IV Q12H [facility] Last Infusion: 06/10/20 05:30 Dose: Infused Documented by: Dexmedetomidine HCl 1,000 mcg/ (Sodium Chloride) 250 mls @ 9.588 mls/hr CONT INF .[id number] [facility]; Protocol Last Titration: 06/10/20 10:00 Dose: 1.4 mcg/kg/hr, 26.8 mls/hr Documented by: Propofol (Diprivan) 1,000 mg in 100 mls @ 9.204 mls/hr CONT INF .[id number] [facility]; Protocol Last Admin: 06/10/20 10:19 Dose: 35 mcg/kg/min, 16.1 mls/hr Documented by: Fentanyl Citrate 1,000 mcg/ (Sodium Chloride) 100 mls @ 10 mls/hr CONT INF .Q10H [facility]; Protocol Last Admin: 06/10/20 10:20 Dose: 200 mcg/hr, 20 mls/hr Documented by: Enteral Nutritional Formula (Vital Af 1.2 Rick Liquid) 1,000 mls @ 30 mls/hr GT .[id number] [facility] Last Admin: 06/10/20 12:31 Dose: 30 mls/hr Documented by: Insulin Glargine (Insulin Glargine 100 Units/Ml Pen) 60 units SC BID [facility] Last Admin: 06/10/20 12:30 Dose: 60 u Documented by: Insulin Human Lispro (Insulin Lispro 100 Unit/Ml Insuln.Pen) 0 unit SC Q6H [facility]; Protocol Last Admin: 06/10/20 12:31 Dose: 2 u Documented by: Melatonin (Melatonin 3 Mg Tablet) 3 mg GT QHS PRN PRN PRN Reason: INSOMNIA Nystatin (Nystatin Powder 15gm Bottle) 1 applic TOPICAL BID [facility]; Protocol Last Admin: 06/10/20 08:14 Dose: 1 applic Documented by: Ondansetron HCl (Ondansetron 4 Mg/2 Ml Vial) 4 mg IV Q8H PRN PRN PRN Reason: NAUSEA/VOMITING Polyethylene Glycol (Polyethylene Glycol 3350 17 Gm Packet) 17 gm GT DAILY PRN PRN Reason: Constipation Potassium Chloride (Potassium Chl Soln 20 Meq/15 Ml Udc) 60 meq GT BID@1000,1700 [facility] Quetiapine Fumarate (Quetiapine 25 Mg Tablet) 50 mg GT BID [facility] Last Admin: 06/10/20 08:15 Dose: 50 mg Documented by: Sodium Chloride (0.9% Saline Lock 10 Ml Syringe) 10 - 40 ml IV UD PRN PRN Reason: SALINE FLUSH Last Admin: 06/09/20 18:37 Dose: 20 ml Documented by: Medical Necessity - Tobacco Use Smoking Status: Former smoker Route of nutrition/ use of supplements: [] Nutritional Intake: [] IV Site: [] Cuellar Catheter: [] - Assessment/Plan Antibiotics: [] Assessment/Plan: [] Active and Suspected Problems (This Medical Record has been edited. Action required.) Pneumonia due to COVID-19 virus (Acute) Respiratory insufficiency (Acute) SARS (severe acute respiratory syndrome) (Acute) covid with hypoxia - sx start 05/19. Lactate over 2. D-dimer was 0.9, CT neg for PE, on lovenox 40mg bid. Cont dex, completed remdesivir. Ucx with ecoli. Sputum with MRSA. 06/02 started vanc. Repeat sputum again with MRSA. Zosyn stopped 06/08. Will follow
[2020-06-10 12:51] LABS: Bedside Glucose 160 mg/dL (70-110)
--- NOTE | 2020-06-10 16:00 | CASEMGMT ---
Social Work Social Work attended ICU rounds. Pt continues to be intubated. Phone call placed to pt to offer support. Mr. Lala states he is doing ok and that he has support of his children. No needs at this time but made aware SW will remain available should needs arise. EL Claros
[2020-06-10] MEDS: 0.9% Saline Lock 10 ML Syringe IV (16:49)
[2020-06-10 18:50] LABS: Bedside Glucose 132 mg/dL (70-110)
[2020-06-10] MEDS: Acetaminophen 650 MG/20 ML UDC GT (22:03)
[2020-06-10] MEDS: Famotidine 20 MG Tablet GT (22:04)
[2020-06-11] VITALS (52 sets, daily range): BP systolic 82–153; BP diastolic 30–62; PULSE 57–70; RESP 14–24; TEMP 37.9–38.8; O2SAT 90–98
[2020-06-11] MEDS: Propofol 10MG/Ml 1,000 MG/100 ML Bottle 16.1 MG CONT INF (02:08)
[2020-06-11 02:51] LABS: Bedside Glucose 179 mg/dL (70-110)
[2020-06-11 03:40] LABS: Absolute Lymphocyte Count 3.93 X10^3/uL (0.83-4.51); Absolute Neutrophil Count 7.5 X10^3/uL (2.0-7.7); Basophil# 0.09 X10^3/uL; Basophil% 0.7 % (0-1); Eosinophil# 0.26 X10^3/uL; Hematocrit 41.9 % (37-47); Hemoglobin 12.8 g/dL (12.0-15.0); Lymphocyte # 3.93 X10^3/ul (4.0); Lymphocyte % 30.8 % (19-41); Mean Corp Hgb Conc 30.5 g/dL (32-36); Mean Corpuscular Hgb 28.1 pg (27.0-32.0); Mean Corpuscular Volume 91.9 fL (81-99); Mean Platelet Vol. 10.3 fl (6.2-12.0); Monocyte% 6.3 % (0-10); NRBC Flagged by Analyzer 0 % (0-5); Neutrophil # 7.51 X10^3/uL (2.7-7.7); Neutrophil % 58.9 % (47-70); Platelet Count 266 K/mm3 (150-450); RBC Distribution Width CV 13.8 % (11.6-14.6); RBC Distribution Width SD 46.4 fl (35.1-43.9); Red Blood Count 4.56 M/mm3 (4.2-5.4); White Blood Count 12.8 K/mm3 (4.4-11.0)
[2020-06-11 03:53] LABS: Anion Gap 5 (5-15); BUN 22 mg/dL (7-18); BUN/Creat Ratio 36.2 RATIO (10-20); Calcium,Total 8.9 mg/dL (8.5-10.1); Chloride 109 mmol/L (98-107); Creatinine, Serum 0.61 mg/dL (0.55-1.02); EST Glomerular Filtration Rate 109 mL/min (>60); Est Glom Filt Rate - Afr Amer 132 mL/min (>60); Estimated Creatinine Clearance 94.87 ml/min; Glucose 139 mg/dL (74-106); Potassium 3.7 mmol/L (3.5-5.1); Sodium Level 142 mmol/L (136-145)
--- NOTE | 2020-06-11 05:30 | PCM.PN.INT ---
Subjective: The patient was seen and examined at the bedside this morning. Events from the last 24 hours have been reviewed. The patient did have fevers overnight with a T-max of 101.8 ?F. She remains on Levophed at a 8 mcg/min to maintain hemodynamic stability. The patient is currently documented to be overall net +7.7 L for the hospital admission. She is currently maintaining appropriate oxygen saturations on assist control mode of mechanical ventilation with an FiO2 requirement of 35% and PEEP of 5. Creatinine remains stable. Objective: The patient's most recent lab work, culture data and imaging studies have all been personally reviewed. Coronavirus PCR was positive on May 22. Urine culture was positive for presumptive E. coli. Sputum culture was positive for MRSA. General: - - Intubated, sedated and mechanically ventilated. HEENT: Atraumatic, PERRLA, Normocephalic Oral: No Gingival or Mucosal Lesions/ Ulcerations, - - Stable endotracheal and OG tubes. Neck: Supple, No Nodes, Trachea Midline Lungs: Diminished Cardiovascular: Normal S1, Normal S2, No murmurs, Bradycardic Abdomen: Bowel Sounds Present, Soft, Non Tender Extremities: No clubbing, No cyanosis, Edema Skin: - - No significant change from previous Musculoskeletal: No Tenderness to Palpation of Joints or Extremities Lymphatic: No Cervical, Supraclavicular, or Inguinal Adenopathy Neurological: - - No focal neurological deficits. Moves extremities spontaneously. CAM+ Vital Signs Temp Pulse Resp BP Pulse Ox 100.9 F H 60 15 103/51 L 95 06/11/20 05:00 06/11/20 05:00 06/11/20 05:00 06/11/20 05:00 06/11/20 05:00 Oxygen Flow Rate (L/min) 6 Oxygen Delivery Method Mechanical Ventilator Weight: 169 lb 1.513 oz Body Mass Index (BMI) 28.1 Finger Stick Blood Glucose 377 Intake and Output for Last 24 Hours 06/09/20 06/10/20 06/11/20 23:59 23:59 23:59 Intake Total 3492.03 / 3557.13 3937.06 / 3995.65 701.74 / 701.74 Output Total 3175 / 3425 4095 / 4095 150 / 150 Balance 317.03 / 132.13 -157.94 / -99.35 551.74 / 551.74 Labs (Last 48 Hours) 06/09/20 06/09/20 06/09/20 06:42 06:55 06:55 WBC 11.0 RBC 4.71 Hgb 13.2 Hct 45.4 MCV 96.4 D MCH 28.0 MCHC 29.1 L D RDW Std Deviation 48.1 H RDW Coeff of Osorio 13.8 Plt Count 214 MPV 10.7 Immature Gran % (Auto) 1.900 H Neut % (Auto) 69.3 Lymph % (Auto) 21.5 Josephine % (Auto) 5.7 Eos % (Auto) 0.8 Baso % (Auto) 0.8 Absolute Neuts (auto) 7.6 Absolute Lymphs (auto) 2.37 Nucleated RBC % 0 Sodium 141 Potassium 3.3 L Chloride 107 Carbon Dioxide 25.0 Anion Gap 9 BUN 17 Creatinine 0.52 L Estim Creat Clear Calc 111.29 Est GFR (MDRD) Af Amer 159 Est GFR (MDRD) Non-Af 132 BUN/Creatinine Ratio 32.9 H Glucose 107 H Calcium 9.2 Phosphorus Magnesium 2.2 Total Bilirubin 0.60 AST 46 H ALT 78 H Alkaline Phosphatase 108 Total Creatine Kinase Total Protein 7.6 Albumin 2.4 L Globulin 5.2 H Albumin/Globulin Ratio 0.5 L Triglycerides POC Glucose 110 06/09/20 06/09/20 06/09/20 12:18 17:28 22:47 WBC RBC Hgb Hct MCV MCH MCHC RDW Std Deviation RDW Coeff of Osorio Plt Count MPV Immature Gran % (Auto) Neut % (Auto) Lymph % (Auto) Josephine % (Auto) Eos % (Auto) Baso % (Auto) Absolute Neuts (auto) Absolute Lymphs (auto) Nucleated RBC % Sodium Potassium Chloride Carbon Dioxide Anion Gap BUN Creatinine Estim Creat Clear Calc Est GFR (MDRD) Af Amer Est GFR (MDRD) Non-Af BUN/Creatinine Ratio Glucose Calcium Phosphorus Magnesium Total Bilirubin AST ALT Alkaline Phosphatase Total Creatine Kinase Total Protein Albumin Globulin Albumin/Globulin Ratio Triglycerides POC Glucose 118 H 238 H 164 H 06/10/20 06/10/20 06/10/20 03:45 03:45 03:45 WBC 17.7 H RBC 4.67 Hgb 13.0 Hct 41.8 MCV 89.5 D MCH 27.8 MCHC 31.1 L D RDW Std Deviation 44.0 H RDW Coeff of Osorio 13.7 Plt Count 317 MPV 10.7 Immature Gran % (Auto) 2.300 H Neut % (Auto) 60.8 Lymph % (Auto) 28.0 Josephine % (Auto) 6.8 Eos % (Auto) 1.5 Baso % (Auto) 0.6 Absolute Neuts (auto) 10.8 H Absolute Lymphs (auto) 4.97 H Nucleated RBC % 0 Sodium 141 Potassium 3.4 L Chloride 110 H Carbon Dioxide 22.0 Anion Gap 9 BUN 23 H Creatinine 0.66 Estim Creat Clear Calc 87.68 Est GFR (MDRD) Af Amer 121 Est GFR (MDRD) Non-Af 100 BUN/Creatinine Ratio 35.1 H Glucose 110 H Calcium 9.1 Phosphorus Magnesium Total Bilirubin AST ALT Alkaline Phosphatase Total Creatine Kinase 19 L Total Protein Albumin Globulin Albumin/Globulin Ratio Triglycerides 263 H POC Glucose 06/10/20 06/10/20 06/10/20 06:55 12:08 17:02 WBC RBC Hgb Hct MCV MCH MCHC RDW Std Deviation RDW Coeff of Osorio Plt Count MPV Immature Gran % (Auto) Neut % (Auto) Lymph % (Auto) Josephine % (Auto) Eos % (Auto) Baso % (Auto) Absolute Neuts (auto) Absolute Lymphs (auto) Nucleated RBC % Sodium Potassium Chloride Carbon Dioxide Anion Gap BUN Creatinine Estim Creat Clear Calc Est GFR (MDRD) Af Amer Est GFR (MDRD) Non-Af BUN/Creatinine Ratio Glucose Calcium Phosphorus 4.0 Magnesium 2.0 Total Bilirubin AST ALT Alkaline Phosphatase Total Creatine Kinase Total Protein Albumin Globulin Albumin/Globulin Ratio Triglycerides POC Glucose 160 H 132 H 06/10/20 06/11/20 06/11/20 23:23 03:30 03:30 WBC 12.8 H RBC 4.56 Hgb 12.8 Hct 41.9 MCV 91.9 MCH 28.1 MCHC 30.5 L RDW Std Deviation 46.4 H RDW Coeff of Osorio 13.8 Plt Count 266 MPV 10.3 Immature Gran % (Auto) 1.300 H Neut % (Auto) 58.9 Lymph % (Auto) 30.8 Josephine % (Auto) 6.3 Eos % (Auto) 2.0 Baso % (Auto) 0.7 Absolute Neuts (auto) 7.5 Absolute Lymphs (auto) 3.93 Nucleated RBC % 0 Sodium 142 Potassium 3.7 Chloride 109 H Carbon Dioxide 28.0 Anion Gap 5 BUN 22 H Creatinine 0.61 Estim Creat Clear Calc 94.87 Est GFR (MDRD) Af Amer 132 Est GFR (MDRD) Non-Af 109 BUN/Creatinine Ratio 36.2 H Glucose 139 H Calcium 8.9 Phosphorus Magnesium Total Bilirubin AST ALT Alkaline Phosphatase Total Creatine Kinase Total Protein Albumin Globulin Albumin/Globulin Ratio Triglycerides POC Glucose 179 H Microbiology 06/10/20 11:30 Sputum, Induced/Lukens Gram Stain - Final 06/07/20 10:40 Sputum, Induced/Lukens Gram Stain - Final 06/07/20 10:40 Sputum, Induced/Lukens Respiratory Culture - Final Meth. resistant Staph. aureus Clinical Impression(s) from Imaging Studies Chest X-Ray 05/26/20 03:41 IMPRESSION: Multifocal pneumonia to include viral pneumonia. Electronically Signed: Forrest Cee MD at 4:28 EST , Service support , Chest CTA 05/26/20 04:23 IMPRESSION: No pulmonary embolus or thoracic aortic dissection. Diffuse groundglass opacities compatible with multifocal pneumonia very suggestive of viral pneumonia. Multiple small mediastinal lymph nodes. Electronically Signed: Forrest Cee MD at 5:18 EST , Service support , Chest X-Ray 05/28/20 04:38 IMPRESSION: GA confluent airspace disease likely pneumonia multilobular and bilateral. Aeration has worsened. Electronically Signed: Nighat Neal MD at 5:48 EST , Service support , Chest X-Ray 05/28/20 19:20 IMPRESSION: 1. Tubes and catheters as described. 2. Bilateral lower lobe pulmonary infiltrates unchanged from prior exam. Electronically Signed: Xavier Beach DO at 19:57 EST Tel [phone], Service support , KUB X-Ray 05/28/20 19:20 IMPRESSION: 1. OG tube as described. 2. No acute intra-abdominal process. 3. Persistent bibasilar infiltrates. Electronically Signed: Xavier Beach DO at 19:52 EST Tel [phone], Service support , Chest X-Ray 05/31/20 08:37 IMPRESSION: All the support tubes are in good position. Residual bilateral pulmonary infiltrates although there has been a mild degree of improvement as compared to prior study. Electronically Signed: Mauricio Bear, at 9:14 EST , Service support , Chest X-Ray 05/31/20 19:30 IMPRESSION: Endotracheal tube at the right main bronchus. Worsening bilateral edema or pneumonia. Electronically Signed: Johny Calderon MD at 21:23 EST , Service support , ADDENDUM: 05/31/20 2138 IMPRESSION: Endotracheal tube at the right main bronchus. Worsening bilateral edema or pneumonia. N.B. : Tina Hicks RN , RN, confirmed on 05/31/2020 21:31:35 (ET) that the healthcare facility has received the radiology report. Electronically Signed: Johny Calderon MD at 21:23 EST , Service support , KUB X-Ray 05/31/20 20:40 IMPRESSION: Gastric tube with tip in the body. Electronically Signed: Verona Esparza at 21:13 EST Tel , Service support , Chest X-Ray 06/05/20 07:25 IMPRESSION: Lines and tubes as above with continued diffuse similar patchy airspace disease throughout the lung parenchyma. Electronically Signed: Carroll Lamb DO at 10:00 EST , Service support , Chest X-Ray 06/09/20 12:39 IMPRESSION: Stable diffuse patchy airspace opacities in both lungs. Electronically Signed: Carey Dey, at 14:18 EST Tel , Service support , Chest X-Ray 06/09/20 13:24 IMPRESSION: Stable diffuse patchy airspace opacities in both lungs. Electronically Signed: Carey Dey, at 13:40 EST Tel , Service support , KUB X-Ray 06/09/20 17:40 IMPRESSION: Enteric tube appears in good position. Other findings as above. Electronically Signed: Nighat Neal MD at 6:07 EST , Service support , Medical Necessity - Tobacco Use Smoking Status: Former smoker Assessment/Plan All Active Problems (This Medical Record has been edited. Action required.) Pneumonia due to COVID-19 virus (Acute) Respiratory insufficiency (Acute) SARS (severe acute respiratory syndrome) (Acute) RECOMMENDATIONS: 1. Continue to wean FiO2 and PEEP to maintain oxygen saturations at or above 90%. 2. Continue current sedation regimen along with scheduled Seroquel. 3. Continue antimicrobials per ID recommendations. 4. Continue tube feeds as tolerated. 5. Continue Levophed and wean to maintain a mean arterial pressure at or above 65 mmHg. 6. Continue scheduled IV Lasix as tolerated by hemodynamics and renal function. 7. Continue Decadron as ordered. 8. Continue therapeutic Lovenox. 9. Continue Lantus and sliding scale insulin coverage. IMPRESSIONS: 1. Acute hypoxemic respiratory failure secondary to COVID-19 pneumonia The patient continued to decompensate from a respiratory perspective following admission, eventually requiring ICU transfer and subsequent intubation on May 28. The patient has completed a treatment course of remdesivir and remains on Decadron. Given MRSA identified on sputum culture, antimicrobials will be continued, per ID recommendations. Although the patient passed a spontaneous breathing trial and was extubated on June 09, a short time later the patient decompensated from a respiratory perspective and had to be reintubated. FiO2 and PEEP will be weaned as tolerated to maintain oxygen saturations at or above 90%. Diuretic therapy will be continued as tolerated by hemodynamics and renal function. Will begin discussion with the patient's family regarding possible need for tracheostomy and PEG tube placement. 2. Septic shock Continue current supportive measures including vasopressor support to maintain a mean arterial pressure at or above 65 mmHg. Continue antimicrobials per ID recommendations. 3. Poorly controlled diabetes mellitus Continue Lantus and sliding scale insulin coverage. 4. ICU delirium Continue Seroquel as ordered. 5. Obesity/GERD Complicates care, management, recovery and prognosis. Aggressive physical therapy is warranted. TIME: 33 minutes of critical care time, independent of procedures, was spent addressing the patient's acute hypoxemic respiratory failure, COVID-19 pneumonia, septic shock, acute kidney injury, diabetes mellitus, ICU delirium, review of all data and collaboration with the care team. ([id number]) [id number]: [id number] Critical care first hour
[2020-06-11] MEDS: Enoxaparin 80 MG/0.8 ML Syringe SC ×2 (05:31→18:21)
[2020-06-11] MEDS: Acetaminophen 650 MG/20 ML UDC GT ×3 (05:31→20:25)
[2020-06-11] MEDS: TITRATION PARAMETER CHANGE 1 EACH IV (05:50)
--- NOTE | 2020-06-11 07:17 | PCM.PN.HOSP ---
Patient Problems: Active and Suspected Problems (This Medical Record has been edited. Action required.) Pneumonia due to COVID-19 virus (Acute) Respiratory insufficiency (Acute) SARS (severe acute respiratory syndrome) (Acute) Reason for Visit: Hypoxic respiratory failure COVID-19 pneumonia Subjective: Patient is a 55-year-old lady on admission with COVID-19 pneumonia. Patient has had a protracted stay including prolonged stay on the vent. Was apparently weaned off the vent on 06/09/2020 but had to be reintubated due to worsening of her respiratory status Objective: GENERAL:on the vent HEENT: Atraumatic; ET tube in place EYES; Anicteric, Normal Conjunctiva NECK; supple, normal thyroid, RESPIRATORY: Diminished to auscultation CARDIOVASCULAR: Regular S1 S2, GI: soft, normoactive bowel sounds, : No Renal angle tenderness; EXTREMITIES: edema, no clubbing, MUSCULOSKELETAL: no muscle waisting NEURO: on the vent SKIN: No Rash Vitals/I&O's: Vital Signs Temp Pulse Resp BP Pulse Ox 100.3 F H 60 14 98/48 L 94 06/11/20 06:00 06/11/20 06:00 06/11/20 06:00 06/11/20 06:45 06/11/20 06:00 Oxygen Flow Rate (L/min) 6 Oxygen Delivery Method Mechanical Ventilator Weight: 76.3 kg Body Mass Index (BMI) 28.1 Finger Stick Blood Glucose 377 Intake and Output for Last 24 Hours 06/09/20 06/10/20 06/11/20 23:59 23:59 23:59 Intake Total 3492.03 / 3557.13 3937.06 / 3995.65 1526.89 / 1526.89 Output Total 3175 / 3425 4095 / 4095 225 / 225 Balance 317.03 / 132.13 -157.94 / -99.35 1301.89 / 1301.89 Microbiology Past 72 Hours 06/10/20 11:30 Sputum, Induced/Lukens Gram Stain - Final 06/07/20 10:40 Sputum, Induced/Lukens Gram Stain - Final 06/07/20 10:40 Sputum, Induced/Lukens Respiratory Culture - Final Meth. resistant Staph. aureus Laboratory Results 06/10/20 06:55: Phosphorus 4.0, Magnesium 2.0 06/10/20 12:08: POC Glucose 160 H 06/10/20 17:02: POC Glucose 132 H 06/10/20 23:23: POC Glucose 179 H 06/11/20 03:30: WBC 12.8 H, RBC 4.56, Hgb 12.8, Hct 41.9, MCV 91.9, MCH 28.1, MCHC 30.5 L, RDW Std Deviation 46.4 H, RDW Coeff of Osorio 13.8, Plt Count 266, MPV 10.3, Immature Gran % (Auto) 1.300 H, Neut % (Auto) 58.9, Lymph % (Auto) 30.8, [place] % (Auto) 6.3, Eos % (Auto) 2.0, Baso % (Auto) 0.7, Absolute Neuts (auto) 7.5, Absolute Lymphs (auto) 3.93, Nucleated RBC % 0 06/11/20 03:30: Sodium 142, Potassium 3.7, Chloride 109 H, Carbon Dioxide 28.0, Anion Gap 5, BUN 22 H, Creatinine 0.61, Estim Creat Clear Calc 94.87, Est GFR (MDRD) Af Amer 132, Est GFR (MDRD) Non-Af 109, BUN/Creatinine Ratio 36.2 H, Glucose 139 H, Calcium 8.9 Current Medications Acetaminophen (Acetaminophen 650 Mg/20 Ml Udc) 650 mg GT Q4H PRN PRN PRN Reason: Pain 1-10 or Fever Last Admin: 06/11/20 05:31 Dose: 650 mg Documented by: Albuterol Sulfate (Albuterol Ih 8.5 Gm (Proair) Inhaler (200 Puffs)) 2 puff INHALATION Q4H PRN PRN PRN Reason: SOB/WHEEZING Albuterol Sulfate (Albuterol 2.5 Mg/3 Ml Vial.Neb.) 2.5 mg INHALATION Q2H PRN PRN PRN Reason: dyspnea, wheezing Last Admin: 05/31/20 07:45 Dose: 2.5 mg Documented by: Calamine/Phenol (Menthol/Lanolin/Calamine/Znox 113 Gm Tube) 1 applic TOPICAL BID OLLIE; Protocol Last Admin: 06/10/20 22:04 Dose: 1 applic Documented by: Chlorhexidine Gluconate (Chlorhexidine 15 Ml) 15 ml PO BID OLLIE Last Admin: 06/10/20 22:07 Dose: 15 ml Documented by: Dexamethasone (Dexamethasone 4 Mg Tablet) 6 mg GT DAILY [facility] Stop: 06/14/20 10:01 Last Admin: 06/10/20 08:13 Dose: 6 mg Documented by: Dextrose (Dextrose 50%-Water 25 Gm/50 Ml Disp.Syrin) 0 gm IV X1 PRN; Protocol PRN Reason: Hypoglycemia Docusate Sodium (Docusate Sodium 100 Mg/10 Ml Udc) 100 mg GT BID [facility] Last Admin: 06/10/20 22:03 Dose: 100 mg Documented by: Enoxaparin Sodium (Enoxaparin 80 Mg/0.8 Ml Syringe) 80 mg SC Q12@0600,1800 [facility] Last Admin: 06/11/20 05:31 Dose: 80 mg Documented by: Famotidine (Famotidine 20 Mg Tablet) 20 mg GT BID [facility] Last Admin: 06/10/20 22:04 Dose: 20 mg Documented by: Furosemide (Furosemide 100 Mg/10 Ml Vial) 80 mg IV BID@1000,1700 [facility] Last Admin: 06/10/20 16:29 Dose: 80 mg Documented by: Glucagon (Glucagon 1 Mg/Ml Syringe) 1 mg IM .X1 PRN PRN Reason: Hypoglycemia Sodium Chloride () 250 mls @ 15 mls/hr IV .[id number] PRN PRN Reason: Saline Flush Last Infusion: 06/11/20 05:30 Dose: 15 mls/hr Documented by: Sodium Chloride () 250 mls @ 15 mls/hr IV .[id number] PRN PRN Reason: Additional IVPB Infusion Norepinephrine Bitartrate 8 mg (/ Sodium Chloride) 250 mls @ 9.375 mls/hr CONT INF .[id number] [facility]; Protocol Last Titration: 06/11/20 06:45 Dose: 9 mcg/min, 16.9 mls/hr Documented by: Vancomycin IV Pharmacy to Dose (1 ea/ Sodium Chloride) 500 mls @ 250 mls/hr IV X1 PRN; Protocol PRN Reason: Rx to Dose Vancomycin HCl 2,000 mg/ (Sodium Chloride) 540 mls @ 250 mls/hr IV Q12H [facility] Last Infusion: 06/11/20 05:30 Dose: Infused Documented by: Dexmedetomidine HCl 1,000 mcg/ (Sodium Chloride) 250 mls @ 9.538 mls/hr CONT INF .[id number] [facility]; Protocol Last Titration: 06/11/20 06:00 Dose: 1.4 mcg/kg/hr, 26.7 mls/hr Documented by: Propofol (Diprivan) 1,000 mg in 100 mls @ 9.156 mls/hr CONT INF .[id number] [facility]; Protocol Last Titration: 06/11/20 06:00 Dose: 35 mcg/kg/min, 16 mls/hr Documented by: Fentanyl Citrate 1,000 mcg/ (Sodium Chloride) 100 mls @ 10 mls/hr CONT INF .Q10H [facility]; Protocol Last Titration: 06/11/20 06:00 Dose: 200 mcg/hr, 20 mls/hr Documented by: Enteral Nutritional Formula (Vital Af 1.2 Rick Liquid) 1,000 mls @ 30 mls/hr GT .[id number] [facility] Last Admin: 06/10/20 12:31 Dose: 30 mls/hr Documented by: Insulin Glargine (Insulin Glargine 100 Units/Ml Pen) 60 units SC BID [facility] Last Admin: 06/10/20 22:09 Dose: 60 u Documented by: Insulin Human Lispro (Insulin Lispro 100 Unit/Ml Insuln.Pen) 0 unit SC Q6H [facility]; Protocol Last Admin: 06/11/20 04:05 Dose: Not Given Documented by: Melatonin (Melatonin 3 Mg Tablet) 3 mg GT QHS PRN PRN PRN Reason: INSOMNIA Nystatin (Nystatin Powder 15gm Bottle) 1 applic TOPICAL BID [facility]; Protocol Last Admin: 06/10/20 22:05 Dose: 1 applic Documented by: Ondansetron HCl (Ondansetron 4 Mg/2 Ml Vial) 4 mg IV Q8H PRN PRN PRN Reason: NAUSEA/VOMITING Polyethylene Glycol (Polyethylene Glycol 3350 17 Gm Packet) 17 gm GT DAILY PRN PRN Reason: Constipation Potassium Chloride (Potassium Chl Soln 20 Meq/15 Ml Udc) 60 meq GT BID@1000,1700 [facility] Last Admin: 06/10/20 16:29 Dose: 60 meq Documented by: Quetiapine Fumarate (Quetiapine 25 Mg Tablet) 50 mg GT BID [facility] Last Admin: 06/10/20 22:04 Dose: 50 mg Documented by: Sodium Chloride (0.9% Saline Lock 10 Ml Syringe) 10 - 40 ml IV UD PRN PRN Reason: SALINE FLUSH Last Admin: 06/10/20 16:49 Dose: 20 ml Documented by: MELVIN Vital Signs/Narrative: Vital Signs Temp Pulse Resp BP Pulse Ox 06/11/20 06:45 98/48 L 06/11/20 06:30 98/48 L 06/11/20 06:15 99/48 L 06/11/20 06:00 100.3 F H 60 14 87/37 L 94 06/11/20 05:00 100.9 F H 60 15 103/51 L 95 06/11/20 04:45 106/52 L 06/11/20 04:30 107/52 L 06/11/20 04:15 103/51 L 06/11/20 04:00 101.2 F H 62 17 102/50 L 94 06/11/20 03:45 105/49 L 06/11/20 03:37 61 06/11/20 03:30 87/41 L 06/11/20 03:19 59 L 16 94 Medical Necessity - Tobacco Use Smoking Status: Former smoker Assessment/Plan All Active Problems (This Medical Record has been edited. 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 Patient was found to be hypoxic on admission with oxygen saturation 83% on room air. CT of the chest obtained on admission demonstrated Diffuse groundglass opacities compatible with multifocal pneumonia very suggestive of viral pneumonia was noted. Also patient had multiple small mediastinal lymph nodes. Patient was also found to have mild transaminitis admitted to the Covid unit for subsequent management 1. Acute hypoxic respiratory failure secondary to COVID-19 pneumonitis -CT of the chest obtained on admission demonstrated Diffuse groundglass opacities compatible with multifocal pneumonia very suggestive of viral pneumonia was noted. Also patient had multiple small mediastinal lymph nodes. Patient was also found to have mild transaminitis admitted to the Covid unit for subsequent management. Patient was placed on supplemental oxygen and Decadron as well as remdesivir. Consult placed to both pulmonary medicine as well as infectious disease. Patient was placed on high flow oxygen titrated to keep saturation greater than 90 -05/28/2020; Was transferred to the intensive care unit following deterioration in her respiratory status. Noninvasive ventilation. Currently on AVAPS with an FiO2 requirement of 100% ?05/29/2020;Respiratory status deteriorated during the evening resulting in patient being intubated. Currently remains on the vent -06/11/2020; Patient is a 55-year-old lady on admission with COVID-19 pneumonia. Patient has had a protracted stay including prolonged stay on the vent. Was apparently weaned off the vent on 06/09/2020 but had to be reintubated due to worsening of her respiratory status 2. Septic shock -Secondary to COVID-19 pneumonia. Patient is on Decadron and remdesivir in addition to Levophed -05/30/2020; Patient seen remains on the vent her FiO2 has been weaned down. Cultures (urine blood as well as sputum) sent the day prior, results pending -06/11/2020; patient urine cultures were positive for E. coli, sputum cultures positive for MRSA 3. Hyperglycemia ?Patient not a known diabetic however hemoglobin A1c on admission was 10.8 consistent with newly diagnosed diabetes mellitus type 2. Patient was placed on long-acting insulin in addition to Accu-Cheks before meals and at bedtime with sliding scale coverage consultation placed to diabetic education and dietitian 4. Hyponatremia ?Secondary to combination of hypovolemic hyponatremia as well as hyperglycemia on IV fluid with subsequent monitoring of electrolyte 5. Transaminitis ?Secondary to COVID-19 infection. Monitoring daily liver function 6. Obesity with BMI of 31.3 ?Weight loss advised 7. GERD -Placed on famotidine 8. Hypokalemia -corrected per protocol 9. DVT prophylaxis ?Lovenox 40 mg SC every 12 Q12 Inpatient E&M: [id number] [facility] L3
[2020-06-11] MEDS: Propofol 10MG/Ml 1,000 MG/100 ML Bottle 16 MG CONT INF ×2 (07:55→18:42)
[2020-06-11] MEDS: Menthol/Lanolin/Calamine/Znox 113 GM Tube 1 APPLIC TOPICAL ×2 (09:28→19:54)
[2020-06-11] MEDS: Nystatin Powder 15gm Bottle 1 APPLIC TOPICAL ×2 (09:29→19:54)
[2020-06-11] MEDS: Docusate Sodium 100 MG/10 ML UDC GT ×2 (09:29→19:59)
[2020-06-11] MEDS: Chlorhexidine 15 ML PO ×2 (09:29→20:22)
[2020-06-11] MEDS: Furosemide 100 MG/10 ML Vial 80 MG IV ×2 (09:30→18:17)
[2020-06-11] MEDS: QUEtiapine 25 MG Tablet 50 MG GT ×2 (09:32→19:59)
[2020-06-11] MEDS: Famotidine 20 MG Tablet GT ×2 (09:32→19:59)
[2020-06-11] MEDS: Dexmedetomidine 1,000 mcg in 0.9% NS 240 mL 26.7 MCG CONT INF ×2 (10:05→19:30)
[2020-06-11] MEDS: dexAMETHasone 4 MG Tablet 6 MG GT (12:40)
[2020-06-11] MEDS: Insulin Lispro 100 UNIT/ML INSULN.PEN SC ×3 (12:41→23:00)
[2020-06-11] MEDS: Propofol 10MG/Ml 1,000 MG/100 ML Bottle 13.7 MG CONT INF (14:36)
[2020-06-11 14:41] LABS: Bedside Glucose 174 mg/dL (70-110)
[2020-06-11 18:41] LABS: Bedside Glucose 157 mg/dL (70-110)
[2020-06-11] MEDS: Vital AF 1.2 Cal Liquid 1,000 ML 40 ML GT (20:25)
[2020-06-12] VITALS (62 sets, daily range): BP systolic 81–169; BP diastolic 32–103; PULSE 60–148; RESP 14–117; TEMP 37.6–40.3; O2SAT 82–100
[2020-06-12] MEDS: Propofol 10MG/Ml 1,000 MG/100 ML Bottle 18.3 MG CONT INF ×2 (00:45→03:18)
[2020-06-12 01:16] LABS: Bedside Glucose 301 mg/dL (70-110)
[2020-06-12] MEDS: Dexmedetomidine 1,000 mcg in 0.9% NS 240 mL 26.7 MCG CONT INF (03:19)
[2020-06-12 03:58] LABS: Absolute Neutrophil Count 8.4 X10^3/uL (2.0-7.7); Basophil# 0.06 X10^3/uL; Basophil% 0.5 % (0-1); Eosinophil# 0.29 X10^3/uL; Eosinophils% 2.2 % (0-5); Hematocrit 38.6 % (37-47); Hemoglobin 12.1 g/dL (12.0-15.0); Lymphocyte % 25.2 % (19-41); Mean Corp Hgb Conc 31.3 g/dL (32-36); Mean Corpuscular Hgb 27.4 pg (27.0-32.0); Mean Corpuscular Volume 87.5 fL (81-99); Monocyte# 0.89 X10^3/uL; Monocyte% 6.8 % (0-10); NRBC Flagged by Analyzer 0 % (0-5); Neutrophil # 8.42 X10^3/uL (2.7-7.7); Neutrophil % 64.5 % (47-70); Platelet Count 280 K/mm3 (150-450); RBC Distribution Width CV 13.5 % (11.6-14.6); RBC Distribution Width SD 42.8 fl (35.1-43.9); Red Blood Count 4.41 M/mm3 (4.2-5.4); White Blood Count 13.1 K/mm3 (4.4-11.0)
[2020-06-12 04:44] LABS: Anion Gap 8 (5-15); BUN 20 mg/dL (7-18); BUN/Creat Ratio 30.7 RATIO (10-20); Calcium,Total 8.9 mg/dL (8.5-10.1); Chloride 107 mmol/L (98-107); Creatinine, Serum 0.65 mg/dL (0.55-1.02); EST Glomerular Filtration Rate 101 mL/min (>60); Est Glom Filt Rate - Afr Amer 122 mL/min (>60); Estimated Creatinine Clearance 89.03 ml/min; Glucose 196 mg/dL (74-106); Potassium 3.7 mmol/L (3.5-5.1); Sodium Level 141 mmol/L (136-145)
[2020-06-12] MEDS: Insulin Lispro 100 UNIT/ML INSULN.PEN SC ×2 (05:40→23:43)
[2020-06-12] MEDS: Enoxaparin 80 MG/0.8 ML Syringe SC ×2 (05:40→18:21)
--- NOTE | 2020-06-12 05:40 | PCM.PN.INT ---
Subjective: The patient was seen and examined at the bedside this morning. Events from the last 24 hours have been reviewed. The patient has had fevers overnight with a T-max of 101.4 ?F. The patient's sedation, with the exception of Precedex, was placed on hold this morning and the patient was able to complete a spontaneous breathing trial. She is currently alert and will follow simple commands. She remains on Decadron, therapeutic Lovenox and IV Lasix. The patient remains on Levophed as well at 16 mcg/min to maintain hemodynamic stability. Creatinine remains stable. The patient is currently documented to be overall net +8 L for the hospital admission. Objective: The patient's most recent lab work, culture data and imaging studies have all been personally reviewed. Coronavirus PCR was positive on May 22. Urine culture was positive for presumptive E. coli. Sputum culture was positive for MRSA. General: Alert, Cooperative, - - Remains intubated mechanically ventilated. HEENT: Atraumatic, PERRLA, Normocephalic Oral: No Gingival or Mucosal Lesions/ Ulcerations, - - Stable endotracheal and OG tubes. Neck: Supple, No Nodes, Trachea Midline Lungs: No rhonchi, No wheeze, No rales, Diminished Cardiovascular: Regular rate, Regular Rhythm Abdomen: Bowel Sounds Present, Soft, Non Tender Extremities: No clubbing, No cyanosis, No edema Skin: - - No significant change from previous. Musculoskeletal: No Tenderness to Palpation of Joints or Extremities Lymphatic: No Cervical, Supraclavicular, or Inguinal Adenopathy Neurological: - - No focal neurological deficits. Moves extremities spontaneously. Will follow simple commands. Remains confused and CAM+ Psych/Mental Status: Restless Vital Signs Temp Pulse Resp BP Pulse Ox 101.2 F H 71 20 H 116/44 L 91 06/12/20 04:00 06/12/20 05:20 06/12/20 05:20 06/12/20 04:00 06/12/20 05:20 Oxygen Flow Rate (L/min) 35 Oxygen Delivery Method Mechanical Ventilator Weight: 176 lb 5.917 oz Body Mass Index (BMI) 28.1 Finger Stick Blood Glucose 377 Intake and Output for Last 24 Hours 06/10/20 06/11/20 06/12/20 23:59 23:59 23:59 Intake Total 3937.06 / 3995.65 4175.35 / 4259.13 794.26 / 794.26 Output Total 4095 / 4095 4125 / 4125 450 / 450 Balance -157.94 / -99.35 50.35 / 134.13 344.26 / 344.26 Labs (Last 48 Hours) 06/10/20 06/10/20 06/10/20 06:55 12:08 17:02 WBC RBC Hgb Hct MCV MCH MCHC RDW Std Deviation RDW Coeff of Osorio Plt Count MPV Immature Gran % (Auto) Neut % (Auto) Lymph % (Auto) [place] % (Auto) Eos % (Auto) Baso % (Auto) Absolute Neuts (auto) Absolute Lymphs (auto) Nucleated RBC % Sodium Potassium Chloride Carbon Dioxide Anion Gap BUN Creatinine Estim Creat Clear Calc Est GFR (MDRD) Af Amer Est GFR (MDRD) Non-Af BUN/Creatinine Ratio Glucose Calcium Phosphorus 4.0 Magnesium 2.0 POC Glucose 160 H 132 H 06/10/20 06/11/20 06/11/20 23:23 03:30 03:30 WBC 12.8 H RBC 4.56 Hgb 12.8 Hct 41.9 MCV 91.9 MCH 28.1 MCHC 30.5 L RDW Std Deviation 46.4 H RDW Coeff of Osorio 13.8 Plt Count 266 MPV 10.3 Immature Gran % (Auto) 1.300 H Neut % (Auto) 58.9 Lymph % (Auto) 30.8 [place] % (Auto) 6.3 Eos % (Auto) 2.0 Baso % (Auto) 0.7 Absolute Neuts (auto) 7.5 Absolute Lymphs (auto) 3.93 Nucleated RBC % 0 Sodium 142 Potassium 3.7 Chloride 109 H Carbon Dioxide 28.0 Anion Gap 5 BUN 22 H Creatinine 0.61 Estim Creat Clear Calc 94.87 Est GFR (MDRD) Af Amer 132 Est GFR (MDRD) Non-Af 109 BUN/Creatinine Ratio 36.2 H Glucose 139 H Calcium 8.9 Phosphorus Magnesium POC Glucose 179 H 06/11/20 06/11/20 06/11/20 12:38 18:16 22:49 WBC RBC Hgb Hct MCV MCH MCHC RDW Std Deviation RDW Coeff of Osorio Plt Count MPV Immature Gran % (Auto) Neut % (Auto) Lymph % (Auto) [place] % (Auto) Eos % (Auto) Baso % (Auto) Absolute Neuts (auto) Absolute Lymphs (auto) Nucleated RBC % Sodium Potassium Chloride Carbon Dioxide Anion Gap BUN Creatinine Estim Creat Clear Calc Est GFR (MDRD) Af Amer Est GFR (MDRD) Non-Af BUN/Creatinine Ratio Glucose Calcium Phosphorus Magnesium POC Glucose 174 H 157 H 301 H 06/12/20 06/12/20 03:50 03:50 WBC 13.1 H RBC 4.41 Hgb 12.1 Hct 38.6 MCV 87.5 MCH 27.4 MCHC 31.3 L RDW Std Deviation 42.8 RDW Coeff of Osorio 13.5 Plt Count 280 MPV 10.0 Immature Gran % (Auto) 0.800 Neut % (Auto) 64.5 Lymph % (Auto) 25.2 [place] % (Auto) 6.8 Eos % (Auto) 2.2 Baso % (Auto) 0.5 Absolute Neuts (auto) 8.4 H Absolute Lymphs (auto) 3.30 Nucleated RBC % 0 Sodium 141 Potassium 3.7 Chloride 107 Carbon Dioxide 26.0 Anion Gap 8 BUN 20 H Creatinine 0.65 Estim Creat Clear Calc 89.03 Est GFR (MDRD) Af Amer 122 Est GFR (MDRD) Non-Af 101 BUN/Creatinine Ratio 30.7 H Glucose 196 H Calcium 8.9 Phosphorus Magnesium POC Glucose Microbiology 06/10/20 07:00 Urine Catheter - Cuellar Urine Culture - Final Yeast, not Rand albicans 06/10/20 11:30 Sputum, Induced/Lukens Gram Stain - Final 06/10/20 11:30 Sputum, Induced/Lukens Respiratory Culture - Preliminary Staphylococcus species Clinical Impression(s) from Imaging Studies Chest X-Ray 05/26/20 03:41 IMPRESSION: Multifocal pneumonia to include viral pneumonia. Electronically Signed: Forrest Cee MD at 4:28 EST , Service support , Chest CTA 05/26/20 04:23 IMPRESSION: No pulmonary embolus or thoracic aortic dissection. Diffuse groundglass opacities compatible with multifocal pneumonia very suggestive of viral pneumonia. Multiple small mediastinal lymph nodes. Electronically Signed: Forrest Cee MD at 5:18 EST , Service support , Chest X-Ray 05/28/20 04:38 IMPRESSION: GA confluent airspace disease likely pneumonia multilobular and bilateral. Aeration has worsened. Electronically Signed: Nighat Neal MD at 5:48 EST , Service support , Chest X-Ray 05/28/20 19:20 IMPRESSION: 1. Tubes and catheters as described. 2. Bilateral lower lobe pulmonary infiltrates unchanged from prior exam. Electronically Signed: Xavier Beach DO at 19:57 EST Tel [phone], Service support , KUB X-Ray 05/28/20 19:20 IMPRESSION: 1. OG tube as described. 2. No acute intra-abdominal process. 3. Persistent bibasilar infiltrates. Electronically Signed: Xavier Beach DO at 19:52 EST Tel [phone], Service support , Chest X-Ray 05/31/20 08:37 IMPRESSION: All the support tubes are in good position. Residual bilateral pulmonary infiltrates although there has been a mild degree of improvement as compared to prior study. Electronically Signed: Mauricio Sifuentes at 9:14 EST , Service support , Chest X-Ray 05/31/20 19:30 IMPRESSION: Endotracheal tube at the right main bronchus. Worsening bilateral edema or pneumonia. Electronically Signed: Johny Calderon MD at 21:23 EST , Service support , ADDENDUM: 05/31/202137 IMPRESSION: Endotracheal tube at the right main bronchus. Worsening bilateral edema or pneumonia. N.B. : Tina Hicks RN , RN, confirmed on 05/31/2020 21:31:35 (ET) that the healthcare facility has received the radiology report. Electronically Signed: Johny Calderon MD at 21:23 EST , Service support , KUB X-Ray 05/31/20 20:40 IMPRESSION: Gastric tube with tip in the body. Electronically Signed: Verona Esparza at 21:13 EST Tel , Service support , Chest X-Ray 06/05/20 07:25 IMPRESSION: Lines and tubes as above with continued diffuse similar patchy airspace disease throughout the lung parenchyma. Electronically Signed: Carroll Lamb DO at 10:00 EST , Service support , Chest X-Ray 06/09/20 12:39 IMPRESSION: Stable diffuse patchy airspace opacities in both lungs. Electronically Signed: Carey Dey, at 14:18 EST Tel , Service support , Chest X-Ray 06/09/20 13:24 IMPRESSION: Stable diffuse patchy airspace opacities in both lungs. Electronically Signed: Carey Dey at 13:40 EST Tel , Service support , KUB X-Ray 06/09/20 17:40 IMPRESSION: Enteric tube appears in good position. Other findings as above. Electronically Signed: Nighat Neal MD at 6:07 EST , Service support , Medical Necessity - Tobacco Use Smoking Status: Former smoker Assessment/Plan All Active Problems (This Medical Record has been edited. Action required.) Pneumonia due to COVID-19 virus (Acute) Respiratory insufficiency (Acute) SARS (severe acute respiratory syndrome) (Acute) RECOMMENDATIONS: 1. Proceed with another attempt at extubation. If the patient fails extubation this time, will consult ENT for trach and PEG. 2. Given diarrhea and fever, check C. difficile. 3. If able to remain extubated, recommend speech therapy evaluation prior to advancing diet. 4. Wean patient from Precedex today. 5. Continue Seroquel. 6. Continue antimicrobials per ID recommendations. 7. Wean supplemental oxygen to maintain saturations at or above 90%. 8. Continue scheduled IV diuretic therapy as tolerated by hemodynamics and renal function. 9. Continue therapeutic Lovenox. 10. Encourage incentive spirometer use and mobilize patient as tolerated. IMPRESSIONS: 1. Acute hypoxemic respiratory failure secondary to COVID-19 pneumonia The patient continued to decompensate from a respiratory perspective following admission, eventually requiring ICU transfer and subsequent intubation on May 28. The patient has completed a treatment course of remdesivir and remains on Decadron. Given MRSA identified on sputum culture, antimicrobials will be continued, per ID recommendations. Although the patient passed a spontaneous breathing trial and was extubated on June 09, a short time later the patient decompensated from a respiratory perspective and had to be reintubated. The patient subsequently stabilized and was again able to be extubated on the morning of June 12. She will be continued on diuretic therapy for now. If the patient does not tolerate being off the ventilator, will need to consider tracheostomy and PEG tube placement. 2. Septic shock Continue current supportive measures including vasopressor support to maintain a mean arterial pressure at or above 65 mmHg. Continue antimicrobials per ID recommendations. Given fevers overnight and diarrhea, will check C. difficile. 3. Poorly controlled diabetes mellitus Continue Lantus and sliding scale insulin coverage. 4. ICU delirium Continue Seroquel as ordered. 5. Obesity/GERD Complicates care, management, recovery and prognosis. Aggressive physical therapy is warranted. TIME: 38 minutes of critical care time, independent of procedures, was spent addressing the patient's acute hypoxemic respiratory failure, COVID-19 pneumonia, septic shock, acute kidney injury, diabetes mellitus, ICU delirium, review of all data and collaboration with the care team. ([id number]) [id number]: [id number] Critical care first hour
--- NOTE | 2020-06-12 07:27 | PCM.PN.HOSP ---
Patient Problems: Active and Suspected Problems (This Medical Record has been edited. Action required.) Pneumonia due to COVID-19 virus (Acute) Respiratory insufficiency (Acute) SARS (severe acute respiratory syndrome) (Acute) Reason for Visit: Acute hypoxic respiratory failure Subjective: Patient successfully weaned off the vent this a.m. Objective: GENERAL: Awake HEENT: Atraumatic; ET tube in place EYES; Anicteric, Normal Conjunctiva NECK; supple, normal thyroid, RESPIRATORY: Diminished to auscultation CARDIOVASCULAR: Regular S1 S2, GI: soft, normoactive bowel sounds, : No Renal angle tenderness; EXTREMITIES: edema, no clubbing, MUSCULOSKELETAL: no muscle waisting NEURO: awake SKIN: No Rash Vitals/I&O's: Vital Signs Temp Pulse Resp BP Pulse Ox 100.4 F H 93 23 H 144/38 H 94 06/12/20 07:00 06/12/20 07:00 06/12/20 07:00 06/12/20 07:00 06/12/20 07:00 Oxygen Flow Rate (L/min) 4 Oxygen Delivery Method Nasal Cannula Weight: 80 kg Body Mass Index (BMI) 28.1 Finger Stick Blood Glucose 377 Intake and Output for Last 24 Hours 06/10/20 06/11/20 06/12/20 23:59 23:59 23:59 Intake Total 3937.06 / 3995.65 4175.35 / 4259.13 1777.66 / 1777.66 Output Total 4095 / 4095 4125 / 4125 900 / 900 Balance -157.94 / -99.35 50.35 / 134.13 877.66 / 877.66 Microbiology Past 72 Hours 06/10/20 07:00 Urine Catheter - Cuellar Urine Culture - Final Yeast, not Rand albicans 06/10/20 11:30 Sputum, Induced/Lukens Gram Stain - Final 06/10/20 11:30 Sputum, Induced/Lukens Respiratory Culture - Preliminary Staphylococcus species 06/07/20 10:40 Sputum, Induced/Lukens Gram Stain - Final 06/07/20 10:40 Sputum, Induced/Lukens Respiratory Culture - Final Meth. resistant Staph. aureus Laboratory Results 06/11/20 12:38: POC Glucose 174 H 06/11/20 18:16: POC Glucose 157 H 06/11/20 22:49: POC Glucose 301 H 06/12/20 03:50: WBC 13.1 H, RBC 4.41, Hgb 12.1, Hct 38.6, MCV 87.5, MCH 27.4, MCHC 31.3 L, RDW Std Deviation 42.8, RDW Coeff of Osorio 13.5, Plt Count 280, MPV 10.0, Immature Gran % (Auto) 0.800, Neut % (Auto) 64.5, Lymph % (Auto) 25.2, Horry % (Auto) 6.8, Eos % (Auto) 2.2, Baso % (Auto) 0.5, Absolute Neuts (auto) 8.4 H, Absolute Lymphs (auto) 3.30, Nucleated RBC % 0 06/12/20 03:50: Sodium 141, Potassium 3.7, Chloride 107, Carbon Dioxide 26.0, Anion Gap 8, BUN 20 H, Creatinine 0.65, Estim Creat Clear Calc 89.03, Est GFR (MDRD) Af Amer 122, Est GFR (MDRD) Non-Af 101, BUN/Creatinine Ratio 30.7 H, Glucose 196 H, Calcium 8.9 Current Medications Acetaminophen (Acetaminophen 650 Mg/20 Ml Udc) 650 mg GT Q4H PRN PRN PRN Reason: Pain 1-10 or Fever Last Admin: 06/11/20 20:25 Dose: 650 mg Documented by: Albuterol Sulfate (Albuterol Ih 8.5 Gm (Proair) Inhaler (200 Puffs)) 2 puff INHALATION Q4H PRN PRN PRN Reason: SOB/WHEEZING Albuterol Sulfate (Albuterol 2.5 Mg/3 Ml Vial.Neb.) 2.5 mg INHALATION Q2H PRN PRN PRN Reason: dyspnea, wheezing Last Admin: 05/31/20 07:45 Dose: 2.5 mg Documented by: Calamine/Phenol (Menthol/Lanolin/Calamine/Znox 113 Gm Tube) 1 applic TOPICAL BID OLLIE; Protocol Last Admin: 06/11/20 19:54 Dose: 1 applic Documented by: Chlorhexidine Gluconate (Chlorhexidine 15 Ml) 15 ml PO BID OLLIE Last Admin: 06/11/20 20:22 Dose: 15 ml Documented by: Dexamethasone (Dexamethasone 4 Mg Tablet) 6 mg GT DAILY [facility] Stop: 06/14/20 10:01 Last Admin: 06/11/20 12:40 Dose: 6 mg Documented by: Dextrose (Dextrose 50%-Water 25 Gm/50 Ml Disp.Syrin) 0 gm IV X1 PRN; Protocol PRN Reason: Hypoglycemia Docusate Sodium (Docusate Sodium 100 Mg/10 Ml Udc) 100 mg GT BID [facility] Last Admin: 06/11/20 19:59 Dose: 100 mg Documented by: Enoxaparin Sodium (Enoxaparin 80 Mg/0.8 Ml Syringe) 80 mg SC Q12@0600,1800 [facility] Last Admin: 06/12/20 05:40 Dose: 80 mg Documented by: Famotidine (Famotidine 20 Mg Tablet) 20 mg GT BID [facility] Last Admin: 06/11/20 19:59 Dose: 20 mg Documented by: Furosemide (Furosemide 100 Mg/10 Ml Vial) 80 mg IV BID@1000,1700 [facility] Last Admin: 06/11/20 18:17 Dose: 80 mg Documented by: Glucagon (Glucagon 1 Mg/Ml Syringe) 1 mg IM .X1 PRN PRN Reason: Hypoglycemia Sodium Chloride () 250 mls @ 15 mls/hr IV .[id number] PRN PRN Reason: Saline Flush Last Infusion: 06/11/20 20:06 Dose: Infused Documented by: Sodium Chloride () 250 mls @ 15 mls/hr IV .[id number] PRN PRN Reason: Additional IVPB Infusion Norepinephrine Bitartrate 8 mg (/ Sodium Chloride) 250 mls @ 9.375 mls/hr CONT INF .[id number] [facility]; Protocol Last Titration: 06/12/20 07:00 Dose: 16 mcg/min, 30 mls/hr Documented by: Vancomycin IV Pharmacy to Dose (1 ea/ Sodium Chloride) 500 mls @ 250 mls/hr IV X1 PRN; Protocol PRN Reason: Rx to Dose Vancomycin HCl 2,000 mg/ (Sodium Chloride) 540 mls @ 250 mls/hr IV Q12H [facility] Last Infusion: 06/12/20 06:00 Dose: Infused Documented by: Dexmedetomidine HCl 1,000 mcg/ (Sodium Chloride) 250 mls @ 10 mls/hr CONT INF .Q25H [facility]; Protocol Last Titration: 06/12/20 06:00 Dose: 0 mcg/kg/hr, 0 mls/hr Documented by: Propofol (Diprivan) 1,000 mg in 100 mls @ 9.6 mls/hr CONT INF .[id number] [facility]; Protocol Last Titration: 06/12/20 04:00 Dose: 0 mcg/kg/min, 0 mls/hr Documented by: Fentanyl Citrate 1,000 mcg/ (Sodium Chloride) 100 mls @ 10 mls/hr CONT INF .Q10H [facility]; Protocol Last Titration: 06/12/20 04:00 Dose: 0 mcg/hr, 0 mls/hr Documented by: Enteral Nutritional Formula (Vital Af 1.2 Rick Liquid) 1,000 mls @ 40 mls/hr GT .Q25H [facility] Last Admin: 06/11/20 20:25 Dose: 40 mls/hr Documented by: Insulin Glargine (Insulin Glargine 100 Units/Ml Pen) 60 units SC BID [facility] Last Admin: 06/11/20 22:52 Dose: 60 u Documented by: Insulin Human Lispro (Insulin Lispro 100 Unit/Ml Insuln.Pen) 0 unit SC Q6H [facility]; Protocol Last Admin: 06/12/20 05:40 Dose: 6 u Documented by: Melatonin (Melatonin 3 Mg Tablet) 3 mg GT QHS PRN PRN PRN Reason: INSOMNIA Nystatin (Nystatin Powder 15gm Bottle) 1 applic TOPICAL BID [facility]; Protocol Last Admin: 06/11/20 19:54 Dose: 1 applic Documented by: Ondansetron HCl (Ondansetron 4 Mg/2 Ml Vial) 4 mg IV Q8H PRN PRN PRN Reason: NAUSEA/VOMITING Polyethylene Glycol (Polyethylene Glycol 3350 17 Gm Packet) 17 gm GT DAILY PRN PRN Reason: Constipation Potassium Chloride (Potassium Chl Soln 20 Meq/15 Ml Udc) 60 meq GT BID@1000,1700 [facility] Last Admin: 06/11/20 18:17 Dose: 60 meq Documented by: Quetiapine Fumarate (Quetiapine 25 Mg Tablet) 50 mg GT BID [facility] Last Admin: 06/11/20 19:59 Dose: 50 mg Documented by: Sodium Chloride (0.9% Saline Lock 10 Ml Syringe) 10 - 40 ml IV UD PRN PRN Reason: SALINE FLUSH Last Admin: 06/10/20 16:49 Dose: 20 ml Documented by: STROKE Vital Signs/Narrative: Vital Signs Temp Pulse Resp BP Pulse Ox 06/12/20 07:00 100.4 F H 93 23 H 144/38 H 94 06/12/20 06:00 99.7 F H 69 19 H 112/64 94 06/12/20 05:20 71 20 H 91 06/12/20 05:00 101.2 F H 63 20 H 109/81 H 94 06/12/20 04:20 74 24 H 92 06/12/20 04:00 101.2 F H 68 22 H 116/44 L 94 Medical Necessity - Tobacco Use Smoking Status: Former smoker Assessment/Plan All Active Problems (This Medical Record has been edited. 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 Patient was found to be hypoxic on admission with oxygen saturation 83% on room air. CT of the chest obtained on admission demonstrated Diffuse groundglass opacities compatible with multifocal pneumonia very suggestive of viral pneumonia was noted. Also patient had multiple small mediastinal lymph nodes. Patient was also found to have mild transaminitis admitted to the Covid unit for subsequent management 1. Acute hypoxic respiratory failure secondary to COVID-19 pneumonitis -CT of the chest obtained on admission demonstrated Diffuse groundglass opacities compatible with multifocal pneumonia very suggestive of viral pneumonia was noted. Also patient had multiple small mediastinal lymph nodes. Patient was also found to have mild transaminitis admitted to the Covid unit for subsequent management. Patient was placed on supplemental oxygen and Decadron as well as remdesivir. Consult placed to both pulmonary medicine as well as infectious disease. Patient was placed on high flow oxygen titrated to keep saturation greater than 90 -05/28/2020; Was transferred to the intensive care unit following deterioration in her respiratory status. Noninvasive ventilation. Currently on AVAPS with an FiO2 requirement of 100% ?05/29/2020;Respiratory status deteriorated during the evening resulting in patient being intubated. Currently remains on the vent -06/11/2020; Patient is a 55-year-old lady on admission with COVID-19 pneumonia. Patient has had a protracted stay including prolonged stay on the vent. Was apparently weaned off the vent on 06/09/2020 but had to be reintubated due to worsening of her respiratory status -06/12/2020 ; Patient successfully weaned off the vent this a.m.. 2. Septic shock -Secondary to COVID-19 pneumonia. Patient is on Decadron and remdesivir in addition to Levophed -05/30/2020; Patient seen remains on the vent her FiO2 has been weaned down. Cultures (urine blood as well as sputum) sent the day prior, results pending -06/11/2020; patient urine cultures were positive for E. coli, sputum cultures positive for MRSA -06/12/2020 patient WBC count remains elevated and is still on Levophed 3. Hyperglycemia ?Patient not a known diabetic however hemoglobin A1c on admission was 10.8 consistent with newly diagnosed diabetes mellitus type 2. Patient was placed on long-acting insulin in addition to Accu-Cheks before meals and at bedtime with sliding scale coverage consultation placed to diabetic education and dietitian 4. Hyponatremia ?Secondary to combination of hypovolemic hyponatremia as well as hyperglycemia on IV fluid with subsequent monitoring of electrolyte 5. Transaminitis ?Secondary to COVID-19 infection. Monitoring daily liver function 6. Obesity with BMI of 31.3 ?Weight loss advised 7. GERD -Placed on famotidine 8. Hypokalemia -corrected per protocol 9. DVT prophylaxis ?Lovenox 40 mg SC every 12 Inpatient E&M: [id number] [place] [id number]
[2020-06-12 09:36] LABS: Bedside Glucose 316 mg/dL (70-110)
[2020-06-12] MEDS: Furosemide 100 MG/10 ML Vial 80 MG IV ×2 (11:35→18:21)
[2020-06-12] MEDS: Famotidine 20 MG Tablet PO ×2 (11:35→21:33)
[2020-06-12] MEDS: 0.9% Saline Lock 10 ML Syringe IV ×4 (11:35→23:47)
[2020-06-12] MEDS: QUEtiapine 25 MG Tablet 50 MG PO ×2 (11:35→21:33)
[2020-06-12] MEDS: Nystatin Powder 15gm Bottle 1 APPLIC TOPICAL ×2 (11:36→21:33)
[2020-06-12] MEDS: Menthol/Lanolin/Calamine/Znox 113 GM Tube 1 APPLIC TOPICAL ×2 (11:36→21:33)
[2020-06-12] MEDS: Ondansetron 4 MG/2 ML Vial IV (14:27)
[2020-06-12 14:51] LABS: Bedside Glucose 90 mg/dL (70-110)
--- NOTE | 2020-06-12 17:15 | CPS ---
Changed water bag on Airvo, tried to get pt to pull herself or wiggle up in bed but patient doesn't seem to comprehend.
[2020-06-12 18:16] LABS: Bedside Glucose 241 mg/dL (70-110)
[2020-06-12 19:00] LABS: Vancomycin, Trough Level 17.7 ug/mL (5.0-15.0)
[2020-06-12] MEDS: Acetaminophen 650 MG Suppository RECTAL (19:02)
--- NOTE | 2020-06-12 19:24 | NURSING ---
nurse into room at 1814- while RN in room pt started vomiting, head was turned to the left and emesis went down side of pt. emesis was green, large amt. during this episode pt became more tachycardic and hypoxic. resp was notified. temp jumped to 103.3. cooling blanket and ice applied. temp up to 105. rectal tylenol given. ice packs to b/l axilla & b/l groin applied. dr brower notified of hr 150s, hypoxia despite airvo maxed out, temp up to 105. states pt will need re-intubated. Dr Stephanie Brand on the unit and spoke w/Dr Brower. 1929- Dr Brand at head of bed to intubate. Resp present for intubation as well as scene shifter primary RN Tina. 1937- [address] Brand order. 1938- 100 Propofol IVP given by Dr Brand for intubation. 1942- 100 Propofol IVP given by Dr Brand for intubation after esophageal intubation. 1943- 96/58- Levophed increased to [address] Brand order. 1949- 7.5, 23 lip, (+) color change, b/l breath sounds, [address] Brand order.
[2020-06-12] MEDS: fentaNYL 100 MCG/2 ML Ampul IV ×2 (19:38→19:50)
[2020-06-12] MEDS: Propofol 200 MG/20 ML Vial 100 MG IV BOLUS ×2 (19:39→19:43)
[2020-06-12] MEDS: Propofol 10MG/Ml 1,000 MG/100 ML Bottle 24 MG CONT INF ×2 (19:40→21:00)
--- NOTE | 2020-06-12 20:05 | RAD_ITS ---
STUDY: X-RAY CHEST REASON FOR EXAM: Female, 55 years old. ETT PLACEMENT; POSSIBLE ASPIRATION TECHNIQUE: AP portable COMPARISON: 06/09/2020 FINDINGS: Diffuse bilateral testicular/alveolar infiltrates which has the appearance of Covid 19 pneumonia... There is no demonstrated pleural abnormality. Endotracheal tube is noted with tip 4.15 cm proximal to damon. Normal size heart. Normal mediastinum and lillie. Normal visualized pulmonary arteries. Normal visualized aortic arch and descending thoracic aorta. Normal visualized thoracic spine. Normal visualized ribs, clavicles, and shoulders. Nasogastric tube is seen in distal stomach Mild nonspecific small bowel distention in the upper abdomen.. There is generalized improved aeration of both lungs when compared with earlier study. RAD/Chest 1 View (Portable) IMPRESSION: Persistent bilateral infiltrates with generalized improved aeration since previous exam. Electronically Signed: Kole Castillo MD at 21:25 EST , Service support ,
--- NOTE | 2020-06-12 20:05 | RAD_ITS ---
STUDY: X-RAY - ABDOMEN/PELVIS REASON FOR EXAM: Female, 55 years old. OG PLACEMENT TECHNIQUE: Frontal view of the abdomen COMPARISON: 09 June 2020 FINDINGS: Gastric drainage tube is present with its tip in the distal body. There are mildly gas distended loops of small bowel in the left upper quadrant. Remainder of the abdomen is not seen. There is extensive bilateral lung disease, likely ARDS. Appearance is similar to prior.. RAD/Abdomen Single View (Portable) IMPRESSION: Gastric tube with tip in the distal body of the stomach. Extensive lung disease. Electronically Signed: Verona Esparza, at 21:02 EST Tel , Service support ,
--- NOTE | 2020-06-12 21:08 | CCHN_ITS ---
Hospitalist Note Intubation note Ms. Lala was extubated earlier today and was having increased respiratory distress and oxygen saturations in the mid 80s on AIRVO. I discussed the case with Dr. Qiu and he asked me to intubate her. The glide scope was used with a 3 MAC blade and a 7.5 ET tube. She was given 100 of fentanyl and 100 of propof ol and was adequately sedated with sats in the low 90s. I was initially able to visualize her vocal cords well but unable to pass the ET tube so the glide scope was withdrawn and the patient was rebagged to improve sats. The patient was then repositioned and utilizing the glide scope her vocal cords were again assessed and some correct pressure was placed and we were able to place a 7.5 ET tube at 24 at the lips. There was condensation in the ET tube, color change with CO2 capnography, bilateral breath sounds, and a chest x-ray was ordered to reevaluate tube placement. Oxygen saturations were 95% when she was placed back on the ventilator. I was able to review the chest x-ray and the ET tube is in good position. Multi Select Codes - Hospitalists' Procedures Procedures: [id number] Insert Emergency Airway
[2020-06-12] MEDS: Dexmedetomidine 1,000 mcg in 0.9% NS 240 mL 10 MCG CONT INF (21:50)
--- NOTE | 2020-06-12 22:09 | NURSING ---
Attempted to call Bill again to update on pt's status. No answer. Message left.
[2020-06-12] MEDS: Chlorhexidine 15 ML PO (22:18)
--- NOTE | 2020-06-12 22:45 | NURSING ---
Updated Bill on pt. being reintubated. is asking if a trach will be placed then. Will discuss with Dr. Qiu in AM.
[2020-06-12 23:06] LABS: Bedside Glucose 155 mg/dL (70-110)
[2020-06-12 23:15] LABS: Base Excess -3 mmol/L (-2 to +2); Bicarbonate 22.1 mmol/L (22-26); Blood Gas Specimen Type ART; FI02 100; Mode AC; O2 Delivery Device Adult Vent; PEEP 10; PO2 79 mmHG (75-100); RR 12; SITE R Brach; SO2 95 % (95-99); Total Carbon Dioxide 23 mmol/L; Vt 450; pCO2 38.3 mmHg (35-45); pH 7.37 (7.35-7.45)
[2020-06-12 23:55] LABS: Bedside Glucose 195 mg/dL (70-110)
[2020-06-13] VITALS (61 sets, daily range): BP systolic 87–132; BP diastolic 39–59; PULSE 21–108; RESP 14–32; TEMP 37.4–38.9; O2SAT 91–99
--- NOTE | 2020-06-13 00:33 | PCM.RX.CS ---
Consult Pharmacy has been consulted to manage selected antiobiotic: Vancomycin Type of Consult: Follow-up Labs: Sodium 141 mmol/L (136-145) 06/12/20 03:50 Potassium 3.7 mmol/L (3.5-5.1) 06/12/20 03:50 Chloride 107 mmol/L (98-107) 06/12/20 03:50 Carbon Dioxide 26.0 mmol/L (21.0-32.0) 06/12/20 03:50 Anion Gap 8 (5-15) 06/12/20 03:50 BUN 20 mg/dL (7-18) H 06/12/20 03:50 Creatinine 0.65 mg/dL (0.55-1.02) 06/12/20 03:50 Est GFR (MDRD) Af Amer 122 mL/min (>60) 06/12/20 03:50 Est GFR (MDRD) Non-Af 101 mL/min (>60) 06/12/20 03:50 BUN/Creatinine Ratio 30.7 RATIO (10-20) H 06/12/20 03:50 Glucose 196 mg/dL (74-106) H 06/12/20 03:50 Vancomycin Trough 17.7 ug/mL (5.0-15.0) H 06/12/20 18:40 Microbiology: Microbiology 06/12/20 08:30 Stool C. difficile DNA Amplification - Final 06/10/20 12:30 Blood Culture (Wb) - Left Wrist Blood Culture - Preliminary No growth in 48 hours. 06/10/20 06:55 Blood Culture (Wb) - Left Forearm Blood Culture - Preliminary No growth in 48 hours. 06/10/20 11:30 Sputum, Induced/Lukens Gram Stain - Final 06/10/20 11:30 Sputum, Induced/Lukens Respiratory Culture - Final Meth. resistant Staph. aureus 06/10/20 07:00 Urine Catheter - Cuellar Urine Culture - Final Yeast, not Rand albicans 06/07/20 10:40 Sputum, Induced/Lukens Gram Stain - Final 06/07/20 10:40 Sputum, Induced/Lukens Respiratory Culture - Final Meth. resistant Staph. aureus 06/01/20 06:40 Sputum, Induced/Lukens Gram Stain - Final 06/01/20 06:40 Sputum, Induced/Lukens Respiratory Culture - Final Meth. resistant Staph. aureus 05/28/20 21:15 Sputum, Induced/Lukens Gram Stain - Final 05/28/20 21:15 Sputum, Induced/Lukens Respiratory Culture - Final 05/29/20 11:00 Urine Catheter - Cuellar Urine Culture - Final Presumptive E. coli 05/26/20 04:05 Blood Culture (Wb) - Right Hand Blood Culture - Final No growth in 5 days. 05/26/20 03:48 Blood Culture (Wb) - Anticubital Right Blood Culture - Final No growth in 5 days. Goal Trough: 15-20 mcg/mL Pharmacy Plan for Drug Dosing: Pharmacy Service will continue to monitor and adjust dosing as required. TROUGH 17.7 DRAWN LATE REDRAW IN 2 DAYS, NO CHANGE IN DOSE AT THIS TIME Follow-Up Labs: Trough Vancomycin Labs to be done on [date and time ordered]: 06/14 @ 3471
[2020-06-13] MEDS: TITRATION PARAMETER CHANGE 1 EACH IV (01:55)
[2020-06-13 04:36] LABS: Absolute Lymphocyte Count 2.13 X10^3/uL (0.83-4.51); Absolute Neutrophil Count 20.7 X10^3/uL (2.0-7.7); Basophil# 0.11 X10^3/uL; Basophil% 0.5 % (0-1); Eosinophil# 0.07 X10^3/uL; Eosinophils% 0.3 % (0-5); Hematocrit 37.1 % (37-47); Hemoglobin 11.7 g/dL (12.0-15.0); Lymphocyte # 2.13 X10^3/ul (4.0); Lymphocyte % 8.8 % (19-41); Mean Corp Hgb Conc 31.5 g/dL (32-36); Mean Corpuscular Hgb 28.1 pg (27.0-32.0); Mean Corpuscular Volume 89.2 fL (81-99); Monocyte# 0.91 X10^3/uL; Monocyte% 3.8 % (0-10); NRBC Flagged by Analyzer 0 % (0-5); Neutrophil # 20.73 X10^3/uL (2.7-7.7); Neutrophil % 85.8 % (47-70); POSITIVE DIFFERENTIAL YES; Platelet Count 280 K/mm3 (150-450); RBC Distribution Width CV 13.9 % (11.6-14.6); RBC Distribution Width SD 44.5 fl (35.1-43.9); Red Blood Count 4.16 M/mm3 (4.2-5.4); White Blood Count 24.2 K/mm3 (4.4-11.0)
[2020-06-13 04:41] LABS: Differential Indicated SCAN CRITERIA MET
[2020-06-13 04:56] LABS: Anion Gap 8 (5-15); BUN 25 mg/dL (7-18); BUN/Creat Ratio 34.1 RATIO (10-20); Calcium,Total 7.7 mg/dL (8.5-10.1); Chloride 110 mmol/L (98-107); Creatinine, Serum 0.73 mg/dL (0.55-1.02); EST Glomerular Filtration Rate 88 mL/min (>60); Est Glom Filt Rate - Afr Amer 106 mL/min (>60); Estimated Creatinine Clearance 79.28 ml/min; Glucose 197 mg/dL (74-106); Potassium 4.6 mmol/L (3.5-5.1); Sodium Level 139 mmol/L (136-145)
[2020-06-13] MEDS: Insulin Lispro 100 UNIT/ML INSULN.PEN SC ×4 (05:21→22:50)
[2020-06-13] MEDS: Enoxaparin 80 MG/0.8 ML Syringe SC (05:23)
[2020-06-13] MEDS: 0.9% Saline Lock 10 ML Syringe IV (05:26)
[2020-06-13 05:36] LABS: Bedside Glucose 231 mg/dL (70-110)
--- NOTE | 2020-06-13 05:36 | PCM.PN.INT ---
Subjective: The patient was seen and examined at the bedside this morning. Events from the last 24 hours have been reviewed. The patient was able to be successfully extubated again yesterday morning. Over the course of the day, the patient did have to be placed on Airvo heated high flow. Last evening, I was contacted by nursing staff who indicated that the patient developed nausea and multiple episodes of emesis with concern that the patient acutely aspirated. The patient's respiratory status continued to decompensate following this event. Therefore, the decision was made to reintubate the patient. The patient's white count is increased to 24,000 this morning. She does currently have low-grade fevers. Creatinine remains stable. The patient is currently on assist control mode of mechanical ventilation with an FiO2 requirement of 55% and PEEP of 10. She is also currently on Levophed at 22 mcg/min. The patient's was updated overnight regarding the events that transpired and he still wishes to proceed with trach/PEG. I did call and personally speak with both general surgery and ENT this morning regarding the need for tracheostomy and PEG tube placement. Objective: The patient's most recent lab work, culture data and imaging studies have all been personally reviewed. Coronavirus PCR was positive on May 22. Urine culture was positive for presumptive E. coli. Sputum culture was positive for MRSA. General: - - Remains intubated, sedated and mechanically ventilated. No ventilator dyssynchrony noted. HEENT: Atraumatic, PERRLA, Normocephalic Oral: Moist Mucosa, - - Endotracheal and OG tubes in place Neck: Supple, No Nodes, Trachea Midline Lungs: No rhonchi, No wheeze, No rales, Diminished Cardiovascular: Regular rate, Regular Rhythm Abdomen: Bowel Sounds Present, Soft, Non Tender Extremities: No clubbing, No cyanosis, No edema Skin: - - No significant change from previous. Musculoskeletal: No Tenderness to Palpation of Joints or Extremities Lymphatic: No Cervical, Supraclavicular, or Inguinal Adenopathy Neurological: - - No focal neurological deficits. Attempts to move extremities spontaneously. RASS of -1. Vital Signs Temp Pulse Resp BP Pulse Ox 99.5 F H 76 16 116/44 L 98 06/13/20 05:00 06/13/20 05:13 06/13/20 05:13 06/13/20 05:06/13/20 05:13 Oxygen Flow Rate (L/min) 6 Oxygen Delivery Method Mechanical Ventilator Weight: 169 lb 12.095 oz Body Mass Index (BMI) 28.1 Finger Stick Blood Glucose 377 Intake and Output for Last 24 Hours 06/11/20 06/12/20 06/13/20 23:59 23:59 23:59 Intake Total 4175.35 / 4259.13 3608.12 / 3689.72 522.76 / 522.76 Output Total 4125 / 4125 3950 / 3950 160 / 160 Balance 50.35 / 134.13 -341.88 / -260.28 362.76 / 362.76 Labs (Last 48 Hours) 06/11/20 06/11/20 06/11/20 12:38 18:16 22:49 WBC RBC Hgb Hct MCV MCH MCHC RDW Std Deviation RDW Coeff of Osorio Plt Count MPV Immature Gran % (Auto) Neut % (Auto) Lymph % (Auto) Kershaw % (Auto) Eos % (Auto) Baso % (Auto) Absolute Neuts (auto) Absolute Lymphs (auto) Nucleated RBC % Specimen Type Sample Site pH Bicarbonate Actual Total CO2 Base Excess O2 Saturation O2 % ABG pCO2 ABG pO2 Respiration Rate O2 Delivery Device Vent Mode Tidal Volume POC PEEP Sodium Potassium Chloride Carbon Dioxide Anion Gap BUN Creatinine Estim Creat Clear Calc Est GFR (MDRD) Af Amer Est GFR (MDRD) Non-Af BUN/Creatinine Ratio Glucose Calcium Vancomycin Trough POC Glucose 174 H 157 H 301 H 06/12/20 06/12/20 06/12/20 03:50 03:50 05:38 WBC 13.1 H RBC 4.41 Hgb 12.1 Hct 38.6 MCV 87.5 MCH 27.4 MCHC 31.3 L RDW Std Deviation 42.8 RDW Coeff of Osorio 13.5 Plt Count 280 MPV 10.0 Immature Gran % (Auto) 0.800 Neut % (Auto) 64.5 Lymph % (Auto) 25.2 Kershaw % (Auto) 6.8 Eos % (Auto) 2.2 Baso % (Auto) 0.5 Absolute Neuts (auto) 8.4 H Absolute Lymphs (auto) 3.30 Nucleated RBC % 0 Specimen Type Sample Site pH Bicarbonate Actual Total CO2 Base Excess O2 Saturation O2 % ABG pCO2 ABG pO2 Respiration Rate O2 Delivery Device Vent Mode Tidal Volume POC PEEP Sodium 141 Potassium 3.7 Chloride 107 Carbon Dioxide 26.0 Anion Gap 8 BUN 20 H Creatinine 0.65 Estim Creat Clear Calc 89.03 Est GFR (MDRD) Af Amer 122 Est GFR (MDRD) Non-Af 101 BUN/Creatinine Ratio 30.7 H Glucose 196 H Calcium 8.9 Vancomycin Trough POC Glucose 316 H 06/12/20 06/12/20 06/12/20 11:33 14:26 18:20 WBC RBC Hgb Hct MCV MCH MCHC RDW Std Deviation RDW Coeff of Osorio Plt Count MPV Immature Gran % (Auto) Neut % (Auto) Lymph % (Auto) Kershaw % (Auto) Eos % (Auto) Baso % (Auto) Absolute Neuts (auto) Absolute Lymphs (auto) Nucleated RBC % Specimen Type Sample Site pH Bicarbonate Actual Total CO2 Base Excess O2 Saturation O2 % ABG pCO2 ABG pO2 Respiration Rate O2 Delivery Device Vent Mode Tidal Volume POC PEEP Sodium Potassium Chloride Carbon Dioxide Anion Gap BUN Creatinine Estim Creat Clear Calc Est GFR (MDRD) Af Amer Est GFR (MDRD) Non-Af BUN/Creatinine Ratio Glucose Calcium Vancomycin Trough POC Glucose 90 241 H 155 H 06/12/20 06/12/20 06/12/20 18:40 23:07 23:41 WBC RBC Hgb Hct MCV MCH MCHC RDW Std Deviation RDW Coeff of Osorio Plt Count MPV Immature Gran % (Auto) Neut % (Auto) Lymph % (Auto) Kershaw % (Auto) Eos % (Auto) Baso % (Auto) Absolute Neuts (auto) Absolute Lymphs (auto) Nucleated RBC % Specimen Type ART Sample Site R Brach pH 7.37 Bicarbonate Actual 22.1 Total CO2 23 Base Excess -3 L O2 Saturation 95 O2 % 100 ABG pCO2 38.3 ABG pO2 79 Respiration Rate 12 O2 Delivery Device Adult Vent Vent Mode AC Tidal Volume 450 POC PEEP 10 Sodium Potassium Chloride Carbon Dioxide Anion Gap BUN Creatinine Estim Creat Clear Calc Est GFR (MDRD) Af Amer Est GFR (MDRD) Non-Af BUN/Creatinine Ratio Glucose Calcium Vancomycin Trough 17.7 H POC Glucose 195 H 06/13/20 06/13/20 06/13/20 03:55 03:55 05:20 WBC 24.2 H RBC 4.16 L Hgb 11.7 L Hct 37.1 MCV 89.2 MCH 28.1 MCHC 31.5 L RDW Std Deviation 44.5 H RDW Coeff of Osorio 13.9 Plt Count 280 MPV 11.0 Immature Gran % (Auto) 0.800 Neut % (Auto) 85.8 H Lymph % (Auto) 8.8 L Kershaw % (Auto) 3.8 Eos % (Auto) 0.3 Baso % (Auto) 0.5 Absolute Neuts (auto) 20.7 H Absolute Lymphs (auto) 2.13 Nucleated RBC % 0 Specimen Type Sample Site pH Bicarbonate Actual Total CO2 Base Excess O2 Saturation O2 % ABG pCO2 ABG pO2 Respiration Rate O2 Delivery Device Vent Mode Tidal Volume POC PEEP Sodium 139 Potassium 4.6 Chloride 110 H Carbon Dioxide 21.0 Anion Gap 8 BUN 25 H Creatinine 0.73 Estim Creat Clear Calc 79.28 Est GFR (MDRD) Af Amer 106 Est GFR (MDRD) Non-Af 88 BUN/Creatinine Ratio 34.1 H Glucose 197 H Calcium 7.7 L Vancomycin Trough POC Glucose Pending Microbiology 06/12/20 08:30 Stool C. difficile DNA Amplification - Final 06/10/20 12:30 Blood Culture (Wb) - Left Wrist Blood Culture - Preliminary No growth in 48 hours. 06/10/20 06:55 Blood Culture (Wb) - Left Forearm Blood Culture - Preliminary No growth in 48 hours. 06/10/20 11:30 Sputum, Induced/Lukens Gram Stain - Final 06/10/20 11:30 Sputum, Induced/Lukens Respiratory Culture - Final Meth. resistant Staph. aureus 06/10/20 07:00 Urine Catheter - Cuellar Urine Culture - Final Yeast, not Rand albicans Clinical Impression(s) from Imaging Studies Chest X-Ray 05/26/20 03:41 IMPRESSION: Multifocal pneumonia to include viral pneumonia. Electronically Signed: Forrest Cee MD at 4:28 EST , Service support , Chest CTA 05/26/20 04:23 IMPRESSION: No pulmonary embolus or thoracic aortic dissection. Diffuse groundglass opacities compatible with multifocal pneumonia very suggestive of viral pneumonia. Multiple small mediastinal lymph nodes. Electronically Signed: Forrest Cee MD at 5:18 EST , Service support , Chest X-Ray 05/28/20 04:38 IMPRESSION: GA confluent airspace disease likely pneumonia multilobular and bilateral. Aeration has worsened. Electronically Signed: Nighat Neal MD at 5:48 EST , Service support , Chest X-Ray 05/28/20 19:20 IMPRESSION: 1. Tubes and catheters as described. 2. Bilateral lower lobe pulmonary infiltrates unchanged from prior exam. Electronically Signed: Xavier Beach DO at 19:57 EST Tel [phone], Service support , KUB X-Ray 05/28/20 19:20 IMPRESSION: 1. OG tube as described. 2. No acute intra-abdominal process. 3. Persistent bibasilar infiltrates. Electronically Signed: Xavier Beach DO at 19:52 EST Tel [phone], Service support , Chest X-Ray 05/31/20 08:37 IMPRESSION: All the support tubes are in good position. Residual bilateral pulmonary infiltrates although there has been a mild degree of improvement as compared to prior study. Electronically Signed: Mauricio Sifuentes, at 9:14 EST , Service support , Chest X-Ray 05/31/20 19:30 IMPRESSION: Endotracheal tube at the right main bronchus. Worsening bilateral edema or pneumonia. Electronically Signed: Johny Calderon MD at 21:23 EST , Service support , ADDENDUM: 05/31/208 IMPRESSION: Endotracheal tube at the right main bronchus. Worsening bilateral edema or pneumonia. N.B. : Tina Hicks RN , RN, confirmed on 05/31/2020 21:31:35 (ET) that the healthcare facility has received the radiology report. Electronically Signed: Johny Calderon MD at 21:23 EST , Service support , KUB X-Ray 05/31/20 20:40 IMPRESSION: Gastric tube with tip in the body. Electronically Signed: Verona Esparza at 21:13 EST Tel , Service support , Chest X-Ray 06/05/20 07:25 IMPRESSION: Lines and tubes as above with continued diffuse similar patchy airspace disease throughout the lung parenchyma. Electronically Signed: Carroll Lamb DO at 10:00 EST , Service support , Chest X-Ray 06/09/20 12:39 IMPRESSION: Stable diffuse patchy airspace opacities in both lungs. Electronically Signed: Carey Dey at 14:18 EST Tel , Service support , Chest X-Ray 06/09/20 13:24 IMPRESSION: Stable diffuse patchy airspace opacities in both lungs. Electronically Signed: Carey Dey at 13:40 EST Tel , Service support , KUB X-Ray 06/09/20 17:40 IMPRESSION: Enteric tube appears in good position. Other findings as above. Electronically Signed: Nighat Neal MD at 6:07 EST , Service support , Chest X-Ray 06/12/20 20:05 IMPRESSION: Persistent bilateral infiltrates with generalized improved aeration since previous exam. Electronically Signed: Kole Castillo MD at 21:25 EST , Service support , KUB X-Ray 06/12/20 20:05 IMPRESSION: Gastric tube with tip in the distal body of the stomach. Extensive lung disease. Electronically Signed: Verona Esparza, at 21:02 EST Tel , Service support , Medical Necessity - Tobacco Use Smoking Status: Former smoker Assessment/Plan All Active Problems (This Medical Record has been edited. Action required.) Pneumonia due to COVID-19 virus (Acute) Respiratory insufficiency (Acute) SARS (severe acute respiratory syndrome) (Acute) RECOMMENDATIONS: 1. Obtain repeat sputum culture and start empiric Zosyn over concerns for aspiration. 2. Wean FiO2 and PEEP to maintain oxygen saturations at or above 90%. 3. Continue therapeutic Lovenox as ordered. 4. Continue diuretic regimen as tolerated by hemodynamics and renal function. 5. Wean Levophed to maintain a mean arterial pressure at or above 65 mmHg. 6. Continue scheduled Seroquel. 7. ENT and general surgery consultations, re: trach and PEG tube placement. IMPRESSIONS: 1. Acute hypoxemic respiratory failure secondary to COVID-19 pneumonia The patient continued to decompensate from a respiratory perspective following admission, eventually requiring ICU transfer and subsequent intubation on May 28. The patient has completed a treatment course of remdesivir and Decadron. The patient, to date, has failed 2 attempts at extubation. During her last attempt on 06/12, there was concern for an acute aspiration event. Therefore, in addition to her vancomycin, which was being continued to treat her MRSA, the patient was also started empirically on Zosyn. Repeat cultures are currently pending. Plan to continue to wean FiO2 and PEEP as tolerated to maintain oxygen saturations at or above 90%. The patient will be continued on scheduled diuretic therapy as tolerated by hemodynamics and renal function. Consultations will be placed at this time to ENT and general surgery with regard to tracheostomy and PEG tube placement. 2. Septic shock Continue current supportive measures including vasopressor support to maintain a mean arterial pressure at or above 65 mmHg. Continue antimicrobials per ID recommendations. A large component of the patient's vasopressor requirement is due to the sedative medication regimen currently being employed to keep her comfortable on the ventilator. 3. Poorly controlled diabetes mellitus Continue Lantus and sliding scale insulin coverage. 4. ICU delirium Continue Seroquel as ordered. 5. Obesity/GERD Complicates care, management, recovery and prognosis. Aggressive physical therapy is warranted. TIME: 35 minutes of critical care time, independent of procedures, was spent addressing the patient's acute hypoxemic respiratory failure, COVID-19 pneumonia, septic shock, acute kidney injury, diabetes mellitus, ICU delirium, review of all data and collaboration with the care team. ([id number]) [id number]: [id number] Critical care first hour
[2020-06-13 05:42] LABS: Differential Comment SCANNED
--- NOTE | 2020-06-13 07:34 | PCM.PN.HOSP ---
Patient Problems: Active and Suspected Problems (This Medical Record has been edited. Action required.) Pneumonia due to COVID-19 virus (Acute) Respiratory insufficiency (Acute) SARS (severe acute respiratory syndrome) (Acute) Reason for Visit: Hypoxic respiratory failure Subjective: Patient is a 55-year-old lady who is been on admission total of 18 days with Covid pneumonia as well as septic shock extubated from the vent on 06/12/2020 who had to be reintubated during the evening as a result of worsening respiratory failure from suspected aspiration pneumonia -Patient has significant increase in her WBC count. She is also febrile with temperature as high as 105 and heart rate of 140. Consult has been placed to general surgery for possible trach and PEG Objective: GENERAL:on the vent HEENT: Atraumatic; ET tube in place EYES; Anicteric, Normal Conjunctiva NECK; supple, normal thyroid, RESPIRATORY: Diminished to auscultation CARDIOVASCULAR: Regular S1 S2, GI: soft, normoactive bowel sounds, : No Renal angle tenderness; EXTREMITIES: edema, no clubbing, MUSCULOSKELETAL: no muscle waisting NEURO: on the vent SKIN: No Rash Vitals/I&O's: Vital Signs Temp Pulse Resp BP Pulse Ox 100 F H 101 H 20 H 100/42 L 94 06/13/20 07:00 06/13/20 07:28 06/13/20 07:00 06/13/20 07:00 06/13/20 07:00 Oxygen Flow Rate (L/min) 6 Oxygen Delivery Method Mechanical Ventilator Weight: 77 kg Body Mass Index (BMI) 28.1 Finger Stick Blood Glucose 377 Intake and Output for Last 24 Hours 06/11/20 06/12/20 06/13/20 23:59 23:59 23:59 Intake Total 4175.35 / 4259.13 3608.12 / 3689.72 1206.57 / 1206.57 Output Total 4125 / 4125 3950 / 3950 310 / 310 Balance 50.35 / 134.13 -341.88 / -260.28 896.57 / 896.57 Microbiology Past 72 Hours 06/12/20 08:30 Stool C. difficile DNA Amplification - Final 06/10/20 12:30 Blood Culture (Wb) - Left Wrist Blood Culture - Preliminary No growth in 48 hours. 06/10/20 06:55 Blood Culture (Wb) - Left Forearm Blood Culture - Preliminary No growth in 48 hours. 06/10/20 11:30 Sputum, Induced/Lukens Gram Stain - Final 06/10/20 11:30 Sputum, Induced/Lukens Respiratory Culture - Final Meth. resistant Staph. aureus 06/10/20 07:00 Urine Catheter - Cuellar Urine Culture - Final Yeast, not Rand albicans Laboratory Results 06/12/20 05:38: POC Glucose 316 H 06/12/20 11:33: POC Glucose 90 06/12/20 14:26: POC Glucose 241 H 06/12/20 18:20: POC Glucose 155 H 06/12/20 18:40: Vancomycin Trough 17.7 H 06/12/20 23:07: Specimen Type ART, Sample Site R Brach, pH 7.37, Bicarbonate Actual 22.1, Total CO2 23, Base Excess -3 L, O2 Saturation 95, O2 % 100, ABG pCO2 38.3, ABG pO2 79, Respiration Rate 12, O2 Delivery Device Adult Vent, Vent Mode AC, Tidal Volume 450, POC PEEP 10 06/12/20 23:41: POC Glucose 195 H 06/13/20 03:55: WBC 24.2 H, RBC 4.16 L, Hgb 11.7 L, Hct 37.1, MCV 89.2, MCH 28.1, MCHC 31.5 L, RDW Std Deviation 44.5 H, RDW Coeff of Osorio 13.9, Plt Count 280, MPV 11.0, Immature Gran % (Auto) 0.800, Neut % (Auto) 85.8 H, Lymph % (Auto) 8.8 L, Dunn % (Auto) 3.8, Eos % (Auto) 0.3, Baso % (Auto) 0.5, Absolute Neuts (auto) 20.7 H, Absolute Lymphs (auto) 2.13, Nucleated RBC % 0, Differential Comment SCANNED 06/13/20 03:55: Sodium 139, Potassium 4.6, Chloride 110 H, Carbon Dioxide 21.0, Anion Gap 8, BUN 25 H, Creatinine 0.73, Estim Creat Clear Calc 79.28, Est GFR (MDRD) Af Amer 106, Est GFR (MDRD) Non-Af 88, BUN/Creatinine Ratio 34.1 H, Glucose 197 H, Calcium 7.7 L 06/13/20 03:55: Total Creatine Kinase Pending, Triglycerides Pending 06/13/20 05:20: POC Glucose 231 H Current Medications Acetaminophen (Acetaminophen 650 Mg Suppository) 650 mg RECTAL Q6H PRN PRN PRN Reason: Pain 1-10 or Fever Last Admin: 06/12/20 19:02 Dose: 650 mg Documented by: Albuterol Sulfate (Albuterol Ih 8.5 Gm (Proair) Inhaler (200 Puffs)) 2 puff INHALATION Q4H PRN PRN PRN Reason: SOB/WHEEZING Albuterol Sulfate (Albuterol 2.5 Mg/3 Ml Vial.Neb.) 2.5 mg INHALATION Q2H PRN PRN PRN Reason: dyspnea, wheezing Last Admin: 05/31/20 07:45 Dose: 2.5 mg Documented by: Calamine/Phenol (Menthol/Lanolin/Calamine/Znox 113 Gm Tube) 1 applic TOPICAL BID [facility]; Protocol Last Admin: 06/12/20 21:33 Dose: 1 applic Documented by: Chlorhexidine Gluconate (Chlorhexidine 15 Ml) 15 ml PO BID [facility] Last Admin: 06/12/20 22:18 Dose: 15 ml Documented by: Dextrose (Dextrose 50%-Water 25 Gm/50 Ml Disp.Syrin) 0 gm IV X1 PRN; Protocol PRN Reason: Hypoglycemia Enoxaparin Sodium (Enoxaparin 80 Mg/0.8 Ml Syringe) 80 mg SC Q12@0600,1800 [facility] Last Admin: 06/13/20 05:23 Dose: 80 mg Documented by: Famotidine (Famotidine 20 Mg Tablet) 20 mg GT BID [facility] Furosemide (Furosemide 100 Mg/10 Ml Vial) 80 mg IV BID@1000,1700 [facility] Last Admin: 06/12/20 18:21 Dose: 80 mg Documented by: Glucagon (Glucagon 1 Mg/Ml Syringe) 1 mg IM .X1 PRN PRN Reason: Hypoglycemia Sodium Chloride () 250 mls @ 15 mls/hr IV .[id number] PRN PRN Reason: Saline Flush Last Infusion: 06/11/20 20:06 Dose: Infused Documented by: Sodium Chloride () 250 mls @ 15 mls/hr IV .[id number] PRN PRN Reason: Additional IVPB Infusion Norepinephrine Bitartrate 8 mg (/ Sodium Chloride) 250 mls @ 9.375 mls/hr CONT INF .[id number] [facility]; Protocol Last Titration: 06/13/20 07:00 Dose: 22 mcg/min, 41.3 mls/hr Documented by: Vancomycin IV Pharmacy to Dose (1 ea/ Sodium Chloride) 500 mls @ 250 mls/hr IV X1 PRN; Protocol PRN Reason: Rx to Dose Vancomycin HCl 2,000 mg/ (Sodium Chloride) 540 mls @ 250 mls/hr IV Q12H [facility] Last Infusion: 06/13/20 05:36 Dose: Infused Documented by: Dexmedetomidine HCl 1,000 mcg/ (Sodium Chloride) 250 mls @ 9.625 mls/hr CONT INF .[id number] [facility]; Protocol Last Titration: 06/13/20 07:00 Dose: 0.7 mcg/kg/hr, 13.5 mls/hr Documented by: Propofol (Diprivan) 1,000 mg in 100 mls @ 4.62 mls/hr CONT INF .Q12H [facility]; Protocol Last Titration: 06/13/20 07:00 Dose: 0 mcg/kg/min, 0 mls/hr Documented by: Fentanyl Citrate 1,000 mcg/ (Sodium Chloride) 100 mls @ 5 mls/hr CONT INF .Q20H [facility]; Protocol Last Titration: 06/13/20 07:00 Dose: 150 mcg/hr, 15 mls/hr Documented by: Piperacillin Sod/Tazobactam (Sod 3.375 gm/ Sodium Chloride) 50 mls @ 12.5 mls/hr IV Q8 [facility] Insulin Glargine (Insulin Glargine 100 Units/Ml Pen) 10 units SC BID [facility] Insulin Human Lispro (Insulin Lispro 100 Unit/Ml Insuln.Pen) 0 unit SC Q6H [facility]; Protocol Last Admin: 06/13/20 05:21 Dose: 4 u Documented by: Melatonin (Melatonin 3 Mg Tablet) 3 mg GT QHS PRN PRN PRN Reason: INSOMNIA Nystatin (Nystatin Powder 15gm Bottle) 1 applic TOPICAL BID [facility]; Protocol Last Admin: 06/12/20 21:33 Dose: 1 applic Documented by: Ondansetron HCl (Ondansetron 4 Mg/2 Ml Vial) 4 mg IV Q8H PRN PRN PRN Reason: NAUSEA/VOMITING Last Admin: 06/12/20 14:27 Dose: 4 mg Documented by: Polyethylene Glycol (Polyethylene Glycol 3350 17 Gm Packet) 17 gm GT DAILY PRN PRN Reason: Constipation Potassium Chloride (Potassium Chl Soln 20 Meq/15 Ml Udc) 60 meq GT BID@1000,1700 [facility] Quetiapine Fumarate (Quetiapine 25 Mg Tablet) 50 mg GT BID [facility] Sodium Chloride (0.9% Saline Lock 10 Ml Syringe) 10 - 40 ml IV UD PRN PRN Reason: SALINE FLUSH Last Admin: 06/13/20 05:26 Dose: 20 ml Documented by: STROKE Vital Signs/Narrative: Vital Signs Temp Pulse Resp BP Pulse Ox 06/13/20 07:28 101 H 06/13/20 07:00 100 F H 80 20 H 100/42 L 94 06/13/20 06:48 79 19 H 97 06/13/20 06:00 99.3 F H 88 16 102/56 L 95 06/13/20 05:45 115/42 L 06/13/20 05:13 76 16 98 06/13/20 05:00 99.5 F H 75 19 H 116/44 L 99 06/13/20 04:45 113/40 L 06/13/20 04:30 116/47 L 06/13/20 04:15 126/44 H 06/13/20 04:00 99.5 F H 80 20 H 132/41 H 98 06/13/20 03:45 117/41 L Medical Necessity - Tobacco Use Smoking Status: Former smoker Assessment/Plan All Active Problems (This Medical Record has been edited. 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 Patient was found to be hypoxic on admission with oxygen saturation 83% on room air. CT of the chest obtained on admission demonstrated Diffuse groundglass opacities compatible with multifocal pneumonia very suggestive of viral pneumonia was noted. Also patient had multiple small mediastinal lymph nodes. Patient was also found to have mild transaminitis admitted to the Covid unit for subsequent management 1. Acute hypoxic respiratory failure secondary to COVID-19 pneumonitis -CT of the chest obtained on admission demonstrated Diffuse groundglass opacities compatible with multifocal pneumonia very suggestive of viral pneumonia was noted. Also patient had multiple small mediastinal lymph nodes. Patient was also found to have mild transaminitis admitted to the Covid unit for subsequent management. Patient was placed on supplemental oxygen and Decadron as well as remdesivir. Consult placed to both pulmonary medicine as well as infectious disease. Patient was placed on high flow oxygen titrated to keep saturation greater than 90 -05/28/2020; Was transferred to the intensive care unit following deterioration in her respiratory status. Noninvasive ventilation. Currently on AVAPS with an FiO2 requirement of 100% ?05/29/2020;Respiratory status deteriorated during the evening resulting in patient being intubated. Currently remains on the vent -06/11/2020; Patient is a 55-year-old lady on admission with COVID-19 pneumonia. Patient has had a protracted stay including prolonged stay on the vent. Was apparently weaned off the vent on 06/09/2020 but had to be reintubated due to worsening of her respiratory status -06/12/2020 ; Patient successfully weaned off the vent this a.m.. 06/13/2020;had to be reintubated during the evening 06/13/2020 as a result of worsening respiratory failure from suspected aspiration pneumonia. Patient has significant increase in her WBC count. She is also febrile with temperature as high as 105 and heart rate of 140. Consult has been placed to general surgery for possible trach and PEG; patient remains on Levophed current antibiotic therapy consist of vancomycin and Zosyn 2. Septic shock -Secondary to COVID-19 pneumonia. Patient is on Decadron and remdesivir in addition to Levophed -05/30/2020; Patient seen remains on the vent her FiO2 has been weaned down. Cultures (urine blood as well as sputum) sent the day prior, results pending -06/11/2020; patient urine cultures were positive for E. coli, sputum cultures positive for MRSA -06/12/2020 patient WBC count remains elevated and is still on Levophed 3. Hyperglycemia ?Patient not a known diabetic however hemoglobin A1c on admission was 10.8 consistent with newly diagnosed diabetes mellitus type 2. Patient was placed on long-acting insulin in addition to Accu-Cheks before meals and at bedtime with sliding scale coverage consultation placed to diabetic education and dietitian 4. Hyponatremia ?Secondary to combination of hypovolemic hyponatremia as well as hyperglycemia on IV fluid with subsequent monitoring of electrolyte 5. Transaminitis ?Secondary to COVID-19 infection. Monitoring daily liver function 6. Obesity with BMI of 31.3 ?Weight loss advised 7. GERD -Placed on famotidine 8. Hypokalemia -corrected per protocol 9. DVT prophylaxis ?Lovenox 40 mg SC every 12 Active Medications Acetaminophen (Acetaminophen 650 Mg Suppository) 650 mg RECTAL Q6H PRN PRN PRN Reason: Pain 1-10 or Fever Last Admin: 06/12/20 19:02 Dose: 650 mg Documented by: Albuterol Sulfate (Albuterol Ih 8.5 Gm (Proair) Inhaler (200 Puffs)) 2 puff INHALATION Q4H PRN PRN PRN Reason: SOB/WHEEZING Albuterol Sulfate (Albuterol 2.5 Mg/3 Ml Vial.Neb.) 2.5 mg INHALATION Q2H PRN PRN PRN Reason: dyspnea, wheezing Last Admin: 05/31/20 07:45 Dose: 2.5 mg Documented by: Calamine/Phenol (Menthol/Lanolin/Calamine/Znox 113 Gm Tube) 1 applic TOPICAL BID [facility]; Protocol Last Admin: 06/12/20 21:33 Dose: 1 applic Documented by: Chlorhexidine Gluconate (Chlorhexidine 15 Ml) 15 ml PO BID [facility] Last Admin: 06/12/20 22:18 Dose: 15 ml Documented by: Dextrose (Dextrose 50%-Water 25 Gm/50 Ml Disp.Syrin) 0 gm IV X1 PRN; Protocol PRN Reason: Hypoglycemia Enoxaparin Sodium (Enoxaparin 80 Mg/0.8 Ml Syringe) 80 mg SC Q12@0600,1800 [facility] Last Admin: 06/13/20 05:23 Dose: 80 mg Documented by: Famotidine (Famotidine 20 Mg Tablet) 20 mg GT BID [facility] Last Admin: 06/13/20 09:18 Dose: 20 mg Documented by: Furosemide (Furosemide 100 Mg/10 Ml Vial) 80 mg IV BID@1000,1700 [facility] Last Admin: 06/13/20 09:17 Dose: 80 mg Documented by: Glucagon (Glucagon 1 Mg/Ml Syringe) 1 mg IM .X1 PRN PRN Reason: Hypoglycemia Sodium Chloride () 250 mls @ 15 mls/hr IV .[id number] PRN PRN Reason: Saline Flush Last Infusion: 06/11/20 20:06 Dose: Infused Documented by: Sodium Chloride () 250 mls @ 15 mls/hr IV .[id number] PRN PRN Reason: Additional IVPB Infusion Norepinephrine Bitartrate 8 mg (/ Sodium Chloride) 250 mls @ 9.375 mls/hr CONT INF .[id number] [facility]; Protocol Last Titration: 06/13/20 09:00 Dose: 22 mcg/min, 41.3 mls/hr Documented by: Vancomycin IV Pharmacy to Dose (1 ea/ Sodium Chloride) 500 mls @ 250 mls/hr IV X1 PRN; Protocol PRN Reason: Rx to Dose Vancomycin HCl 2,000 mg/ (Sodium Chloride) 540 mls @ 250 mls/hr IV Q12H [facility] Last Infusion: 06/13/20 05:36 Dose: Infused Documented by: Dexmedetomidine HCl 1,000 mcg/ (Sodium Chloride) 250 mls @ 9.625 mls/hr CONT INF .[id number] [facility]; Protocol Last Titration: 06/13/20 09:00 Dose: 0.7 mcg/kg/hr, 13.5 mls/hr Documented by: Propofol (Diprivan) 1,000 mg in 100 mls @ 4.62 mls/hr CONT INF .Q12H [facility]; Protocol Last Titration: 06/13/20 09:00 Dose: 0 mcg/kg/min, 0 mls/hr Documented by: Fentanyl Citrate 1,000 mcg/ (Sodium Chloride) 100 mls @ 5 mls/hr CONT INF .Q20H [facility]; Protocol Last Titration: 06/13/20 09:00 Dose: 150 mcg/hr, 15 mls/hr Documented by: Piperacillin Sod/Tazobactam (Sod 3.375 gm/ Sodium Chloride) 50 mls @ 12.5 mls/hr IV Q8 [facility] Last Admin: 06/13/20 08:11 Dose: 12.5 mls/hr Documented by: Insulin Glargine (Insulin Glargine 100 Units/Ml Pen) 10 units SC BID [facility] Insulin Human Lispro (Insulin Lispro 100 Unit/Ml Insuln.Pen) 0 unit SC Q6H [facility]; Protocol Last Admin: 06/13/20 05:21 Dose: 4 u Documented by: Melatonin (Melatonin 3 Mg Tablet) 3 mg GT QHS PRN PRN PRN Reason: INSOMNIA Nystatin (Nystatin Powder 15gm Bottle) 1 applic TOPICAL BID [facility]; Protocol Last Admin: 06/12/20 21:33 Dose: 1 applic Documented by: Ondansetron HCl (Ondansetron 4 Mg/2 Ml Vial) 4 mg IV Q8H PRN PRN PRN Reason: NAUSEA/VOMITING Last Admin: 06/12/20 14:27 Dose: 4 mg Documented by: Polyethylene Glycol (Polyethylene Glycol 3350 17 Gm Packet) 17 gm GT DAILY PRN PRN Reason: Constipation Potassium Chloride (Potassium Chl Soln 20 Meq/15 Ml Udc) 60 meq GT BID@1000,1700 [facility] Last Admin: 06/13/20 09:17 Dose: 60 meq Documented by: Quetiapine Fumarate (Quetiapine 25 Mg Tablet) 50 mg GT BID [facility] Last Admin: 06/13/20 09:18 Dose: 50 mg Documented by: Sodium Chloride (0.9% Saline Lock 10 Ml Syringe) 10 - 40 ml IV UD PRN PRN Reason: SALINE FLUSH Last Admin: 06/13/20 05:26 Dose: 20 ml Documented by: Inpatient E&M: [id number] Subs Hosp L3
[2020-06-13 07:44] LABS: CPK Total, Creatine Kinase 22 U/L (26-192); Triglycerides 217 mg/dL
--- NOTE | 2020-06-13 08:17 | PCM.PN.BLA ---
Progress Note I was consulted for PEG tube placement for the patient. I discussed with the internet e commerce specialist. I will see the patient tomorrow and perform a full consultation and discussed with family and plan for PEG tube placement Sara. Ben Mcelroy MD Pager: [facility] [address] [place] [address], [address] [place] [address] Office: STROKE Vital Signs/Narrative: Vital Signs Temp Pulse Resp BP Pulse Ox 06/13/20 08:00 100.1 F H 79 16 114/46 L 93 06/13/20 07:28 101 H 06/13/20 07:00 100 F H 80 20 H 100/42 L 94 06/13/20 06:48 79 19 H 97 06/13/20 06:00 99.3 F H 88 16 102/56 L 95 06/13/20 05:45 115/42 L 06/13/20 05:13 76 16 98 06/13/20 05:00 99.5 F H 75 19 H 116/44 L 99 06/13/20 04:45 113/40 L 06/13/20 04:30 116/47 L
[2020-06-13] MEDS: Furosemide 100 MG/10 ML Vial 80 MG IV ×2 (09:17→17:15)
[2020-06-13] MEDS: QUEtiapine 25 MG Tablet 50 MG GT ×2 (09:18→19:55)
[2020-06-13] MEDS: Famotidine 20 MG Tablet GT ×2 (09:18→19:56)
[2020-06-13] MEDS: Menthol/Lanolin/Calamine/Znox 113 GM Tube 1 APPLIC TOPICAL ×2 (09:55→19:56)
[2020-06-13] MEDS: Chlorhexidine 15 ML PO ×2 (09:55→19:56)
[2020-06-13] MEDS: Nystatin Powder 15gm Bottle 1 APPLIC TOPICAL ×2 (09:57→19:56)
[2020-06-13] MEDS: Vital AF 1.2 Cal Liquid 1,000 ML 30 ML GT (10:36)
[2020-06-13 12:20] LABS: Bedside Glucose 199 mg/dL (70-110)
[2020-06-13] MEDS: Dexmedetomidine 1,000 mcg in 0.9% NS 240 mL 13.5 MCG CONT INF (13:31)
[2020-06-13] MEDS: Acetaminophen 650 MG Suppository RECTAL (14:10)
--- NOTE | 2020-06-13 16:49 | PCM.PN.BLA ---
Progress Note Asked to see the patient at the request of Dr. Qiu for tracheostomy tube placement. HPI: 55 yo white female who tested positive for COVID 19 on 05/22/20. She presented to the ER and was admitted. She eventually required intubation for acute respiratory failure. She has now failed extubation twice. She was re intubated last night after possible aspiration. She has had low grade temps today. PMH: GERD Allergies acetaminophen [From Vicodin] Allergy (Verified 05/26/20 03:39) Hives hydrocodone [From Vicodin] Allergy (Verified 05/26/20 03:39) Hives Home Medications: Ambulatory Orders Medication Instructions Recorded NK 05/26/20 Surgical History: - - Surgery for carpal tunnel surgery Lives: Spouse/ Significant Other Smoking Status: Former smoker - *Family History Maternal History Items: Diabetes, Heart Disease, Renal Disease Paternal History Items: Cancer - His father had vocal cord cancer PE: awake alert on the vent Neck is short. No masses. the cricoid is sitting just superior to the sternal notch PEEP=5 A: Repsiratory Failure (now failed extubation x 2) COVID 19 P: I willl be placing her on the schedule for tracheostomy in the OR tomorrow. We will hold lovenox tonight and tomorrow AM. Hold tube feeds after midnight. STROKE Vital Signs/Narrative: Vital Signs Temp Pulse Resp BP Pulse Ox 06/13/20 16:00 100.7 F H 108 H 20 H 118/50 L 93 06/13/20 15:45 106/48 L 06/13/20 15:30 110/48 L 06/13/20 15:15 105/47 L 06/13/20 15:00 100.9 F H 89 18 102/49 L 92 06/13/20 14:45 103/46 L 06/13/20 14:30 96/46 L 06/13/20 14:15 98/43 L 06/13/20 14:00 100.5 F H 88 16 96/40 L 93 06/13/20 13:45 97/42 L 06/13/20 13:43 21 L 19 H 94 06/13/20 13:30 100/43 L 06/13/20 13:15 100.8 F H 83 19 H 87/39 L 93 06/13/20 13:00 100.8 F H 84 18 87/41 L 93
[2020-06-13 17:30] LABS: Bedside Glucose 192 mg/dL (70-110)
--- NOTE | 2020-06-13 23:14 | NURSING ---
Pt placed on cooling blanket at 2250
[2020-06-13 23:31] LABS: Bedside Glucose 265 mg/dL (70-110)
[2020-06-14] VITALS (61 sets, daily range): BP systolic 105–169; BP diastolic 41–67; PULSE 56–107; RESP 14–22; TEMP 36.9–38.9; O2SAT 88–100
[2020-06-14 03:56] LABS: Absolute Lymphocyte Count 1.27 X10^3/uL (0.83-4.51); Absolute Neutrophil Count 7.9 X10^3/uL (2.0-7.7); Basophil# 0.05 X10^3/uL; Basophil% 0.5 % (0-1); Eosinophil# 0.52 X10^3/uL; Hematocrit 37.2 % (37-47); Hemoglobin 11.8 g/dL (12.0-15.0); Lymphocyte # 1.27 X10^3/ul (4.0); Lymphocyte % 12.3 % (19-41); Mean Corp Hgb Conc 31.7 g/dL (32-36); Mean Corpuscular Hgb 28.2 pg (27.0-32.0); Mean Corpuscular Volume 88.8 fL (81-99); Monocyte# 0.53 X10^3/uL; Monocyte% 5.1 % (0-10); NRBC Flagged by Analyzer 0 % (0-5); Neutrophil # 7.88 X10^3/uL (2.7-7.7); Neutrophil % 76.4 % (47-70); Platelet Count 259 K/mm3 (150-450); RBC Distribution Width CV 13.8 % (11.6-14.6); RBC Distribution Width SD 44.1 fl (35.1-43.9); Red Blood Count 4.19 M/mm3 (4.2-5.4); White Blood Count 10.3 K/mm3 (4.4-11.0)
[2020-06-14 04:01] LABS: International Normalized Ratio 1.1; Prothrombin Time (Protime)PT. 13.8 SECONDS (11.7-14.9)
[2020-06-14 04:08] LABS: Anion Gap 9 (5-15); BUN 26 mg/dL (7-18); BUN/Creat Ratio 23.2 RATIO (10-20); Chloride 105 mmol/L (98-107); Creatinine, Serum 1.12 mg/dL (0.55-1.02); EST Glomerular Filtration Rate 54 mL/min (>60); Est Glom Filt Rate - Afr Amer 65 mL/min (>60); Estimated Creatinine Clearance 51.67 ml/min; Glucose 257 mg/dL (74-106); Sodium Level 138 mmol/L (136-145)
[2020-06-14] MEDS: Hydrocortisone Sod Succinate 100 MG/2 ML Vial IV ×3 (06:39→19:52)
[2020-06-14] MEDS: Dexmedetomidine 1,000 mcg in 0.9% NS 240 mL 13.5 MCG CONT INF (06:40)
--- NOTE | 2020-06-14 09:14 | PCM.PN.INT ---
Subjective: Patient did well overnight. No acute issues have been reported. Patient has been off of propofol all evening, but is still requiring Levophed at 30 mics to maintain appropriate saturations. Patient has been n.p.o. for possible tracheostomy today and PEG is planned for tomorrow. Patient is very coherent and is aware of the plan. Patient finds this acceptable. General: Alert, Cooperative, No apparent distress, - - Actively participating and writing notes on paper HEENT: Atraumatic, PERRLA, EOMI, Normocephalic, - - No scleral icterus or injection noted Oral: Moist Mucosa, No Gingival or Mucosal Lesions/ Ulcerations Neck: Supple, No JVD, No Nodes, Trachea Midline Lungs: No rhonchi, No wheeze, No rales, Diminished Cardiovascular: Regular rate, Regular Rhythm, Normal S1, Normal S2, No murmurs, No rub noted, No Gallop Abdomen: Bowel Sounds Present, Soft, Non Tender, Non-Distended, Obese Extremities: No clubbing, No cyanosis Skin: No rashes, No breakdown Musculoskeletal: No Tenderness to Palpation of Joints or Extremities Lymphatic: No Cervical, Supraclavicular, or Inguinal Adenopathy Neurological: Cranial nerves II-XII grossly intact, Neuro grossly intact, Motor Exam 5/5 strength throughout Psych/Mental Status: Normal Affect, Appropriate Vital Signs Temp Pulse Resp BP Pulse Ox 37.4 C H 77 16 141/57 H 97 06/14/20 06:00 06/14/20 07:16 06/14/20 07:16 06/14/20 06:00 06/14/20 07:16 Oxygen Flow Rate (L/min) 6 Oxygen Delivery Method Mechanical Ventilator Weight: 80.2 kg Body Mass Index (BMI) 28.1 Finger Stick Blood Glucose 377 Intake and Output for Last 24 Hours 06/12/20 06/13/20 06/14/20 23:59 23:59 23:59 Intake Total 3608.12 / 3689.72 3918.96 / 3982.46 1177.47 / 1177.47 Output Total 3950 / 3950 2610 / 2610 570 / 570 Balance -341.88 / -260.28 1308.96 / 1372.46 607.47 / 607.47 Labs (Last 48 Hours) 06/12/20 06/12/20 06/12/20 05:38 11:33 14:26 WBC RBC Hgb Hct MCV MCH MCHC RDW Std Deviation RDW Coeff of Osorio Plt Count MPV Immature Gran % (Auto) Neut % (Auto) Lymph % (Auto) [place] % (Auto) Eos % (Auto) Baso % (Auto) Absolute Neuts (auto) Absolute Lymphs (auto) Nucleated RBC % Differential Comment PT INR Specimen Type Sample Site pH Bicarbonate Actual Total CO2 Base Excess O2 Saturation O2 % ABG pCO2 ABG pO2 Respiration Rate O2 Delivery Device Vent Mode Tidal Volume POC PEEP Sodium Potassium Chloride Carbon Dioxide Anion Gap BUN Creatinine Estim Creat Clear Calc Est GFR (MDRD) Af Amer Est GFR (MDRD) Non-Af BUN/Creatinine Ratio Glucose Calcium Total Creatine Kinase Triglycerides Vancomycin Trough POC Glucose 316 H 90 241 H 06/12/20 06/12/20 06/12/20 18:20 18:40 23:07 WBC RBC Hgb Hct MCV MCH MCHC RDW Std Deviation RDW Coeff of Osorio Plt Count MPV Immature Gran % (Auto) Neut % (Auto) Lymph % (Auto) [place] % (Auto) Eos % (Auto) Baso % (Auto) Absolute Neuts (auto) Absolute Lymphs (auto) Nucleated RBC % Differential Comment PT INR Specimen Type ART Sample Site R Brach pH 7.37 Bicarbonate Actual 22.1 Total CO2 23 Base Excess -3 L O2 Saturation 95 O2 % 100 ABG pCO2 38.3 ABG pO2 79 Respiration Rate 12 O2 Delivery Device Adult Vent Vent Mode AC Tidal Volume 450 POC PEEP 10 Sodium Potassium Chloride Carbon Dioxide Anion Gap BUN Creatinine Estim Creat Clear Calc Est GFR (MDRD) Af Amer Est GFR (MDRD) Non-Af BUN/Creatinine Ratio Glucose Calcium Total Creatine Kinase Triglycerides Vancomycin Trough 17.7 H POC Glucose 155 H 06/12/20 06/13/20 06/13/20 23:41 03:55 03:55 WBC 24.2 H RBC 4.16 L Hgb 11.7 L Hct 37.1 MCV 89.2 MCH 28.1 MCHC 31.5 L RDW Std Deviation 44.5 H RDW Coeff of Osorio 13.9 Plt Count 280 MPV 11.0 Immature Gran % (Auto) 0.800 Neut % (Auto) 85.8 H Lymph % (Auto) 8.8 L [place] % (Auto) 3.8 Eos % (Auto) 0.3 Baso % (Auto) 0.5 Absolute Neuts (auto) 20.7 H Absolute Lymphs (auto) 2.13 Nucleated RBC % 0 Differential Comment SCANNED PT INR Specimen Type Sample Site pH Bicarbonate Actual Total CO2 Base Excess O2 Saturation O2 % ABG pCO2 ABG pO2 Respiration Rate O2 Delivery Device Vent Mode Tidal Volume POC PEEP Sodium 139 Potassium 4.6 Chloride 110 H Carbon Dioxide 21.0 Anion Gap 8 BUN 25 H Creatinine 0.73 Estim Creat Clear Calc 79.28 Est GFR (MDRD) Af Amer 106 Est GFR (MDRD) Non-Af 88 BUN/Creatinine Ratio 34.1 H Glucose 197 H Calcium 7.7 L Total Creatine Kinase Triglycerides Vancomycin Trough POC Glucose 195 H 06/13/20 06/13/20 06/13/20 03:55 05:20 12:10 WBC RBC Hgb Hct MCV MCH MCHC RDW Std Deviation RDW Coeff of Osorio Plt Count MPV Immature Gran % (Auto) Neut % (Auto) Lymph % (Auto) [place] % (Auto) Eos % (Auto) Baso % (Auto) Absolute Neuts (auto) Absolute Lymphs (auto) Nucleated RBC % Differential Comment PT INR Specimen Type Sample Site pH Bicarbonate Actual Total CO2 Base Excess O2 Saturation O2 % ABG pCO2 ABG pO2 Respiration Rate O2 Delivery Device Vent Mode Tidal Volume POC PEEP Sodium Potassium Chloride Carbon Dioxide Anion Gap BUN Creatinine Estim Creat Clear Calc Est GFR (MDRD) Af Amer Est GFR (MDRD) Non-Af BUN/Creatinine Ratio Glucose Calcium Total Creatine Kinase 22 L Triglycerides 217 H Vancomycin Trough POC Glucose 231 H 199 H 06/13/20 06/13/20 06/14/20 16:58 22:48 03:15 WBC 10.3 RBC 4.19 L Hgb 11.8 L Hct 37.2 MCV 88.8 MCH 28.2 MCHC 31.7 L RDW Std Deviation 44.1 H RDW Coeff of Osorio 13.8 Plt Count 259 MPV 11.0 Immature Gran % (Auto) 0.700 Neut % (Auto) 76.4 H Lymph % (Auto) 12.3 L [place] % (Auto) 5.1 Eos % (Auto) 5.0 Baso % (Auto) 0.5 Absolute Neuts (auto) 7.9 H Absolute Lymphs (auto) 1.27 Nucleated RBC % 0 Differential Comment PT INR Specimen Type Sample Site pH Bicarbonate Actual Total CO2 Base Excess O2 Saturation O2 % ABG pCO2 ABG pO2 Respiration Rate O2 Delivery Device Vent Mode Tidal Volume POC PEEP Sodium Potassium Chloride Carbon Dioxide Anion Gap BUN Creatinine Estim Creat Clear Calc Est GFR (MDRD) Af Amer Est GFR (MDRD) Non-Af BUN/Creatinine Ratio Glucose Calcium Total Creatine Kinase Triglycerides Vancomycin Trough POC Glucose 192 H 265 H 06/14/20 06/14/20 03:15 03:15 WBC RBC Hgb Hct MCV MCH MCHC RDW Std Deviation RDW Coeff of Osorio Plt Count MPV Immature Gran % (Auto) Neut % (Auto) Lymph % (Auto) [place] % (Auto) Eos % (Auto) Baso % (Auto) Absolute Neuts (auto) Absolute Lymphs (auto) Nucleated RBC % Differential Comment PT 13.8 INR 1.1 Specimen Type Sample Site pH Bicarbonate Actual Total CO2 Base Excess O2 Saturation O2 % ABG pCO2 ABG pO2 Respiration Rate O2 Delivery Device Vent Mode Tidal Volume POC PEEP Sodium 138 Potassium 4.0 Chloride 105 Carbon Dioxide 24.0 Anion Gap 9 BUN 26 H Creatinine 1.12 H Estim Creat Clear Calc 51.67 Est GFR (MDRD) Af Amer 65 Est GFR (MDRD) Non-Af 54 L BUN/Creatinine Ratio 23.2 H Glucose 257 H Calcium 9.0 Total Creatine Kinase Triglycerides Vancomycin Trough POC Glucose Microbiology 06/12/20 08:30 Stool C. difficile DNA Amplification - Final 06/10/20 12:30 Blood Culture (Wb) - Left Wrist Blood Culture - Preliminary No growth in 48 hours. 06/10/20 06:55 Blood Culture (Wb) - Left Forearm Blood Culture - Preliminary No growth in 48 hours. 06/10/20 11:30 Sputum, Induced/Lukens Gram Stain - Final 06/10/20 11:30 Sputum, Induced/Lukens Respiratory Culture - Final Meth. resistant Staph. aureus Medical Necessity - Tobacco Use Smoking Status: Former smoker Assessment/Plan All Active Problems (This Medical Record has been edited. Action required.) Pneumonia due to COVID-19 virus (Acute) Respiratory insufficiency (Acute) SARS (severe acute respiratory syndrome) (Acute) RECOMMENDATIONS: 1. Await repeat sputum culture and start empiric Zosyn over concerns for aspiration. 2. Wean FiO2 and PEEP to maintain oxygen saturations at or above 90%. 3. Continue therapeutic Lovenox as ordered. 4. Continue diuretic regimen as tolerated by hemodynamics and renal function. 5. Wean Levophed to maintain a mean arterial pressure at or above 65 mmHg. 6. Continue scheduled Seroquel. Anticipate fentanyl postop, but discontinuation of sedation 7. Await trach and PEG tube placement. IMPRESSIONS: 1. Acute hypoxemic respiratory failure secondary to COVID-19 pneumonia The patient continued to decompensate from a respiratory perspective following admission, eventually requiring ICU transfer and subsequent intubation on May 28. The patient has completed a treatment course of remdesivir and Decadron. The patient, to date, has failed 2 attempts at extubation. During her last attempt on 06/12, there was concern for an acute aspiration event. Therefore, in addition to her vancomycin, which was being continued to treat her MRSA, the patient was also started empirically on Zosyn. Repeat cultures are currently pending. Plan to continue to wean FiO2 and PEEP as tolerated to maintain oxygen saturations at or above 90%. Given repeated failures of extubation, trach and PEG is appropriate. Anticipate discontinuation of sedative medications postoperatively. May require fentanyl for 24 to 48 h for postoperative pain. Would not recommend morphine as this could exacerbate hypotension 2. Septic shock Continue current supportive measures including vasopressor support to maintain a mean arterial pressure at or above 65 mmHg. Continue antimicrobials per ID recommendations. She continues to require significant pressors despite removal of propofol. Clinical suspicion for an element of adrenal insufficiency given protracted courses of Decadron. Patient will be placed on stress dose steroids. Patient was febrile overnight, which may be secondary to aspiration pneumonia, chemical pneumonitis or protracted COVID-19. Would continue with precautions for now through the operative procedures as these will be high risk for aerosolization. Could reevaluate once operative procedures are completed and if fever curve improves. 3. Poorly controlled diabetes mellitus Continue Lantus and sliding scale insulin coverage. 4. ICU delirium Continue Seroquel as ordered. 5. Obesity/GERD Complicates care, management, recovery and prognosis. Aggressive physical therapy is warranted. TIME: 37 minutes of critical care time, independent of procedures, was spent addressing the patient's acute hypoxemic respiratory failure, COVID-19 pneumonia, septic shock, acute kidney injury, diabetes mellitus, ICU delirium, review of all data and collaboration with the care team. (8 AM to 9 AM) 9xxxx: [id number] Critical care first hour
[2020-06-14] MEDS: Chlorhexidine 15 ML PO ×2 (10:00→19:54)
[2020-06-14] MEDS: Menthol/Lanolin/Calamine/Znox 113 GM Tube 1 APPLIC TOPICAL ×2 (10:00→19:54)
[2020-06-14] MEDS: Nystatin Powder 15gm Bottle 1 APPLIC TOPICAL ×2 (10:00→19:53)
--- NOTE | 2020-06-14 10:27 | PN_ITS ---
Patient Problems: Active and Suspected Problems (This Medical Record has been edited. Action required.) Pneumonia due to COVID-19 virus (Acute) Respiratory insufficiency (Acute) SARS (severe acute respiratory syndrome) (Acute) Subjective: Patient seen and examined. She was extubated yesterday, but had to be reintubated again overnight. She remains on levophed and precedex as well as fentanyl. She is to have a tracheostomy done today, and for PEG tube placement tomorrow. She is alert, with RASS score of 0. Vitals/I&O's: Vital Signs Temp Pulse Resp BP Pulse Ox 99.1 F 63 18 141/42 H 98 06/14/20 10:00 06/14/20 10:00 06/14/20 10:00 06/14/20 10:15 06/14/20 10:00 Oxygen Flow Rate (L/min) 6 Oxygen Delivery Method Mechanical Ventilator Weight: 176 lb 12.972 oz Body Mass Index (BMI) 28.1 Finger Stick Blood Glucose 377 Intake and Output for Last 24 Hours 06/12/20 06/13/20 06/14/20 23:59 23:59 23:59 Intake Total 3608.12 / 3689.72 3918.96 / 3982.46 1430.69 / 1430.69 Output Total 3950 / 3950 2610 / 2610 845 / 845 Balance -341.88 / -260.28 1308.96 / 1372.46 585.69 / 585.69 General: Alert, Cooperative, No apparent distress, - - intubated, sedated, RASS score is 0 HEENT: Atraumatic, PERRLA, EOMI, Normocephalic Oral: Dry Mucosa Neck: Supple, No JVD, Negative Carotid Bruits Lungs: Clear to auscultation, Normal air movement, - - intubated, sedated Cardiovascular: Regular rate, Regular Rhythm, Normal S1, Normal S2, No murmurs Abdomen: Bowel Sounds Present, Soft, Non Tender, Non-Distended, No Hepato- splenomegaly Extremities: No clubbing, No cyanosis, No edema, Capillary Refill Less than 3 Seconds Skin: No rashes, No breakdown Musculoskeletal: No Tenderness to Palpation of Joints or Extremities Lymphatic: No Cervical, Supraclavicular, or Inguinal Adenopathy Neurological: Cranial nerves II-XII grossly intact, Neuro grossly intact, - - intubated, sedated, RASS score is 0 Psych/Mental Status: Normal Affect Microbiology Past 72 Hours 06/12/20 08:30 Stool C. difficile DNA Amplification - Final 06/10/20 12:30 Blood Culture (Wb) - Left Wrist Blood Culture - Preliminary No growth in 48 hours. 06/10/20 06:55 Blood Culture (Wb) - Left Forearm Blood Culture - Preliminary No growth in 48 hours. 06/10/20 11:30 Sputum, Induced/Lukens Gram Stain - Final 06/10/20 11:30 Sputum, Induced/Lukens Respiratory Culture - Final Meth. resistant Staph. aureus 06/10/20 07:00 Urine Catheter - Cuellar Urine Culture - Final Yeast, not Rand albicans Laboratory Results 06/13/20 12:10: POC Glucose 199 H 06/13/20 16:58: POC Glucose 192 H 06/13/20 22:48: POC Glucose 265 H 06/14/20 03:15: WBC 10.3, RBC 4.19 L, Hgb 11.8 L, Hct 37.2, MCV 88.8, MCH 28.2, MCHC 31.7 L, RDW Std Deviation 44.1 H, RDW Coeff of Osorio 13.8, Plt Count 259, MPV 11.0, Immature Gran % (Auto) 0.700, Neut % (Auto) 76.4 H, Lymph % (Auto) 12.3 L, [place] % (Auto) 5.1, Eos % (Auto) 5.0, Baso % (Auto) 0.5, Absolute Neuts (auto) 7.9 H, Absolute Lymphs (auto) 1.27, Nucleated RBC % 0 06/14/20 03:15: PT 13.8, INR 1.1 06/14/20 03:15: Sodium 138, Potassium 4.0, Chloride 105, Carbon Dioxide 24.0, Anion Gap 9, BUN 26 H, Creatinine 1.12 H, Estim Creat Clear Calc 51.67, Est GFR (MDRD) Af Amer 65, Est GFR (MDRD) Non-Af 54 L, BUN/Creatinine Ratio 23.2 H, Glucose 257 H, Calcium 9.0 Diagnostic Data Chest CTA 05/26/20 04:23 IMPRESSION: No pulmonary embolus or thoracic aortic dissection. Diffuse groundglass opacities compatible with multifocal pneumonia very suggestive of viral pneumonia. Multiple small mediastinal lymph nodes. Electronically Signed: Forrest Cee MD at 5:18 EST , Service support , Chest X-Ray 06/12/20 20:05 IMPRESSION: Persistent bilateral infiltrates with generalized improved aeration since previous exam. Electronically Signed: Kole Castillo MD at 21:25 EST , Service support , KUB X-Ray 06/12/20 20:05 IMPRESSION: Gastric tube with tip in the distal body of the stomach. Extensive lung disease. Electronically Signed: Verona Esparza at 21:02 EST Tel , Service support , Current Medications Acetaminophen (Acetaminophen 650 Mg/20 Ml Udc) 650 mg GT Q6H PRN PRN PRN Reason: TEMP > 100.5 F Albuterol Sulfate (Albuterol Ih 8.5 Gm (Proair) Inhaler (200 Puffs)) 2 puff INHALATION Q4H PRN PRN PRN Reason: SOB/WHEEZING Albuterol Sulfate (Albuterol 2.5 Mg/3 Ml Vial.Neb.) 2.5 mg INHALATION Q2H PRN PRN PRN Reason: dyspnea, wheezing Last Admin: 05/31/20 07:45 Dose: 2.5 mg Documented by: Calamine/Phenol (Menthol/Lanolin/Calamine/Znox 113 Gm Tube) 1 applic TOPICAL BID OLLIE; Protocol Last Admin: 06/13/20 19:56 Dose: 1 applic Documented by: Chlorhexidine Gluconate (Chlorhexidine 15 Ml) 15 ml PO BID OLLIE Last Admin: 06/13/20 19:56 Dose: 15 ml Documented by: Dextrose (Dextrose 50%-Water 25 Gm/50 Ml Disp.Syrin) 0 gm IV X1 PRN; Protocol PRN Reason: Hypoglycemia Enoxaparin Sodium (Enoxaparin 80 Mg/0.8 Ml Syringe) 80 mg SC Q12@0600,1800 COUNTS INCLUDE 234 BEDS AT THE [facility] Last Admin: 06/13/20 17:43 Dose: Not Given Documented by: Famotidine (Famotidine 20 Mg Tablet) 20 mg GT BID COUNTS INCLUDE 234 BEDS AT THE [facility] Last Admin: 06/13/20 19:56 Dose: 20 mg Documented by: Furosemide (Furosemide 100 Mg/10 Ml Vial) 80 mg IV BID@1000,1700 COUNTS INCLUDE 234 BEDS AT THE [facility] Last Admin: 06/13/20 17:15 Dose: 80 mg Documented by: Glucagon (Glucagon 1 Mg/Ml Syringe) 1 mg IM .X1 PRN PRN Reason: Hypoglycemia Hydrocortisone Sodium Succinate (Hydrocortisone Sod Succinate 100 Mg/2 Ml Vial) 100 mg IV Q8 COUNTS INCLUDE 234 BEDS AT THE [facility] Last Admin: 06/14/20 06:39 Dose: 100 mg Documented by: Sodium Chloride () 250 mls @ 15 mls/hr IV .[id number] PRN PRN Reason: Saline Flush Last Infusion: 06/11/20 20:06 Dose: Infused Documented by: Sodium Chloride () 250 mls @ 15 mls/hr IV .[id number] PRN PRN Reason: Additional IVPB Infusion Norepinephrine Bitartrate 8 mg (/ Sodium Chloride) 250 mls @ 9.375 mls/hr CONT INF .[id number] COUNTS INCLUDE 234 BEDS AT THE [facility]; Protocol Last Titration: 06/14/20 10:15 Dose: 26 mcg/min, 48.8 mls/hr Documented by: Vancomycin IV Pharmacy to Dose (1 ea/ Sodium Chloride) 500 mls @ 250 mls/hr IV X1 PRN; Protocol PRN Reason: Rx to Dose Vancomycin HCl 2,000 mg/ (Sodium Chloride) 540 mls @ 250 mls/hr IV Q12H COUNTS INCLUDE 234 BEDS AT THE [facility] Last Infusion: 06/14/20 06:22 Dose: Infused Documented by: Dexmedetomidine HCl 1,000 mcg/ (Sodium Chloride) 250 mls @ 9.625 mls/hr CONT INF .[id number] COUNTS INCLUDE 234 BEDS AT THE [facility]; Protocol Last Admin: 06/14/20 06:40 Dose: 0.7 mcg/kg/hr, 13.5 mls/hr Documented by: Propofol (Diprivan) 1,000 mg in 100 mls @ 4.62 mls/hr CONT INF .Q12H COUNTS INCLUDE 234 BEDS AT THE [facility]; Protocol Last Admin: 06/14/20 09:48 Dose: Not Given Documented by: Fentanyl Citrate 1,000 mcg/ (Sodium Chloride) 100 mls @ 5 mls/hr CONT INF .Q20H COUNTS INCLUDE 234 BEDS AT THE [facility]; Protocol Last Admin: 06/14/20 06:39 Dose: 150 mcg/hr, 15 mls/hr Documented by: Piperacillin Sod/Tazobactam (Sod 3.375 gm/ Sodium Chloride) 50 mls @ 12.5 mls/hr IV Q8 COUNTS INCLUDE 234 BEDS AT THE [facility] Last Infusion: 06/14/20 09:37 Dose: Infused Documented by: Enteral Nutritional Formula (Vital Af 1.2 Rick Liquid) 1,000 mls @ 60 mls/hr GT .[id number] COUNTS INCLUDE 234 BEDS AT THE [facility] Last Admin: 06/14/20 03:31 Dose: Not Given Documented by: Insulin Glargine (Insulin Glargine 100 Units/Ml Pen) 10 units SC BID COUNTS INCLUDE 234 BEDS AT THE [facility] Last Admin: 06/13/20 22:50 Dose: 10 u Documented by: Insulin Human Lispro (Insulin Lispro 100 Unit/Ml Insuln.Pen) 0 unit SC Q6H COUNTS INCLUDE 234 BEDS AT THE [facility]; Protocol Last Admin: 06/14/20 05:55 Dose: Not Given Documented by: Melatonin (Melatonin 3 Mg Tablet) 3 mg GT QHS PRN PRN PRN Reason: INSOMNIA Nystatin (Nystatin Powder 15gm Bottle) 1 applic TOPICAL BID COUNTS INCLUDE 234 BEDS AT THE [facility]; Protocol Last Admin: 06/13/20 19:56 Dose: 1 applic Documented by: Ondansetron HCl (Ondansetron 4 Mg/2 Ml Vial) 4 mg IV Q8H PRN PRN PRN Reason: NAUSEA/VOMITING Last Admin: 06/12/20 14:27 Dose: 4 mg Documented by: Polyethylene Glycol (Polyethylene Glycol 3350 17 Gm Packet) 17 gm GT DAILY PRN PRN Reason: Constipation Potassium Chloride (Potassium Chl Soln 20 Meq/15 Ml Udc) 60 meq GT BID@1000,1700 COUNTS INCLUDE 234 BEDS AT THE [facility] Last Admin: 06/13/20 17:15 Dose: 60 meq Documented by: Quetiapine Fumarate (Quetiapine 25 Mg Tablet) 50 mg GT BID COUNTS INCLUDE 234 BEDS AT THE [facility] Last Admin: 06/13/20 19:55 Dose: 50 mg Documented by: Sodium Chloride (0.9% Saline Lock 10 Ml Syringe) 10 - 40 ml IV UD PRN PRN Reason: SALINE FLUSH Last Admin: 06/13/20 05:26 Dose: 20 ml Documented by: STROKE Vital Signs/Narrative: Vital Signs Temp Pulse Resp BP Pulse Ox 06/14/20 10:15 141/42 H 06/14/20 10:00 99.1 F 63 18 150/49 H 98 06/14/20 09:45 141/57 H 06/14/20 09:30 150/45 H 06/14/20 09:15 150/50 H 06/14/20 09:00 98.9 F 56 L 17 169/52 H 97 06/14/20 08:00 98.6 F 58 L 16 156/42 H 97 06/14/20 07:16 77 16 97 06/14/20 07:00 99.1 F 60 16 148/44 H 97 Medical Necessity - Tobacco Use Smoking Status: Former smoker Assessment/Plan All Active Problems (This Medical Record has been edited. Action required.) Pneumonia due to COVID-19 virus (Acute) Respiratory insufficiency (Acute) SARS (severe acute respiratory syndrome) (Acute) #Acute hypoxic respiratory failure due to COVID 19 infection * patient was reintubated; she is now on Precedex and fentanyl for sedation * she is for tracheostomy today o/a of her having been extubated and reintubated several times * she did have a peak of 102.1F fever overnight. wbc went up to 24.2 yesterday, but is down to 10.3 today * on IV vancomycina nd zosyn * pulmonology on board * in cumulative positive balance by 8.84L * being diuresed with IV lasix 80mg bid * titrate oxygen to maintain sats >90% * currently on tube feeding. * #Septic shock due to covid pneumonia * remains on levophed. * completed a course of decadron and remdesivir * on levophed drip. * on IV vancomycin and zosyn' * respiratory culture grew MRSA * blood cultures negative * #Newly diagnosed type 2 diabetes mellitus * On admission, A1c was 10.8 though she was not a known diabetic. * Currently on Lantus 10 units twice daily with insulin sliding scale. Accu- Cheks AC at bedtime. #Hyponatremia: Resolved. Sodium is 130 today. #Transaminitis: Improved markedly. #GERD: On famotidine #Hypokalemia: Resolved. Potassium is 4 DVT prophylaxis: Lovenox 40 mg every 12. GI prophylaxis: On famotidine. Inpatient E&M: [id number] [place] [id number]
--- NOTE | 2020-06-14 10:28 | CASEMGMT ---
Addendum entered by Ivan Lord 06/14/20 11:57: Per ANNABELLE Romo. Patient's first choice for Ltach is [facility] if they are accepting referrals this week, second choice is [facility] and third choice is [facility]. ANNABELLE DUPREE will call [facility] tomorrow to see if they are accepting new referrals, if not- will send referral to [facility]. Jimmy SHARP RN ACM Addendum entered by Ivan Lord 06/14/20 11:44: Spoke with nurse, Demetrius. Update re: patient's choices for LTACH. Pt is awake, alert and able to participate in conversation. Demetrius will discuss choices with pt and is aware [facility] is currently not accepting referrals. Jimmy Sharp RN ACM Addendum entered by Ivan Lord 06/14/20 11:26: Call to [facility]. Due to staff covid outbreak, they are not accepting referrals at this time. CM could call back Wed to see if status had changed. Will call later today or in am to discuss second choices. Jimmy SHARP RN AC Original Note: ANNABELLE DUPREE Note: participated in ICU Interdisciplinary rounds. Remains on ventilator @ 40% O2. Plan is for trach today and PEG tube placement tomorrow. LTACH is recommended on dc. Pt is more alert, and per physician, is aware LTACH is dc plan once trach and peg are placed. [facility] for [facility] using prefix [facility]: [facility], [facility] and [facility] in [place]. Call to to begin conversation re: LTACH. was very upset stating he was not notified that tracheostomy procedure was being done this am, he was updated by his daughter. RN JOON asked if he was aware the procedure was planned for today and he stated he did. RN CM let know cm did not know circumstance of calls this am, but nurse could call after procedure to give him an update. CM offered to call back later in day or tomorrow to discuss the LTACH, but wanted to discuss today. Explained purpose of LTACH on discharge for further respiratory care and weaning once pt is medically clear to leave hospital. Explained [facility] facilities for her insurance. stated he wanted LTACH only or she would need to come home. Explained that going home with ventilator and trach and peg without further recovery time would not be medically safe. ANNABELLE DUPREE let him know referral could be sent to [facility] first to see if beds are available, and if not, a second choice would be needed. Further explained [facility] has facility in [facility], and in [place] which is freestanding. Also included [facility] in [place]. RN JOON let know he could review facilities on line to help him make a second choice if needed. -emotional support given and cm let know he would continue to be updated re: dc planning to LTACH. No further questions or concerns. Jimmy HERNANDEZN RN ACM
[2020-06-14] MEDS: Famotidine 20 MG Tablet GT (11:02)
[2020-06-14] MEDS: QUEtiapine 25 MG Tablet 50 MG GT (11:02)
--- NOTE | 2020-06-14 11:47 | CON.PCM_ITS ---
Problem List (1) Unable to eat Status: Acute Reason for Consult Date of Consultation: 06/14/20 History of Present Illness: The patient is a 55 year old F who was admitted at the beginning of May with Covid pneumonia. She was extubated twice and reintubated twice due to failure to be able to breathe on her own. I was contacted for possible PEG tube placement. Past Medical History Past Medical History (Chronic Problems): Chronic Problems (This Medical Record has been edited. Action required.) GERD (gastroesophageal reflux disease) (Chronic) Allergies acetaminophen [From Vicodin] Allergy (Verified 05/26/20 03:39) Hives hydrocodone [From Vicodin] Allergy (Verified 05/26/20 03:39) Hives Home Medications: Ambulatory Orders Medication Instructions Recorded NK 05/26/20 Surgical History: - - Surgery for carpal tunnel surgery Lives: Spouse/ Significant Other Smoking Status: Former smoker - *Family History Maternal History Items: Diabetes, Heart Disease, Renal Disease Paternal History Items: Cancer - His father had vocal cord cancer Review of Systems Unable to obtain accurate/complete ROS d/t: Patient intubated and sedated Patient Problems: Active and Suspected Problems (This Medical Record has been edited. Action required.) Pneumonia due to COVID-19 virus (Acute) Respiratory insufficiency (Acute) SARS (severe acute respiratory syndrome) (Acute) - Physical Exam Vitals/I&O's: Vital Signs Temp Pulse Resp BP Pulse Ox 99.1 F 67 17 141/42 H 100 06/14/20 10:00 06/14/20 11:32 06/14/20 11:32 06/14/20 10:15 06/14/20 11:32 Oxygen Flow Rate (L/min) 6 Oxygen Delivery Method Mechanical Ventilator Weight: 176 lb 12.972 oz Body Mass Index (BMI) 28.1 Finger Stick Blood Glucose 377 Intake and Output for Last 24 Hours 06/12/20 06/13/20 06/14/20 23:59 23:59 23:59 Intake Total 3608.12 / 3689.72 3918.96 / 3982.46 1430.69 / 1430.69 Output Total 3950 / 3950 2610 / 2610 570 / 570 Balance -341.88 / -260.28 1308.96 / 1372.46 860.69 / 860.69 Neck: No JVD Cardiovascular: Regular rate Abdomen: Soft, Non Tender, Non-Distended Microbiology Past 72 Hours 06/13/20 06:45 Sputum, Tracheal Aspirate Gram Stain - Final 06/13/20 06:45 Sputum, Tracheal Aspirate Respiratory Culture - Preliminary GNR Possible Haemophilus sp. Staphylococcus aureus 06/12/20 08:30 Stool C. difficile DNA Amplification - Final 06/10/20 12:30 Blood Culture (Wb) - Left Wrist Blood Culture - Preliminary No growth in 48 hours. 06/10/20 06:55 Blood Culture (Wb) - Left Forearm Blood Culture - Preliminary No growth in 48 hours. 06/10/20 11:30 Sputum, Induced/Lukens Gram Stain - Final 06/10/20 11:30 Sputum, Induced/Lukens Respiratory Culture - Final Meth. resistant Staph. aureus 06/10/20 07:00 Urine Catheter - Cuellar Urine Culture - Final Yeast, not Rand albicans Laboratory Results 06/13/20 12:10: POC Glucose 199 H 06/13/20 16:58: POC Glucose 192 H 06/13/20 22:48: POC Glucose 265 H 06/14/20 03:15: WBC 10.3, RBC 4.19 L, Hgb 11.8 L, Hct 37.2, MCV 88.8, MCH 28.2, MCHC 31.7 L, RDW Std Deviation 44.1 H, RDW Coeff of Osorio 13.8, Plt Count 259, MPV 11.0, Immature Gran % (Auto) 0.700, Neut % (Auto) 76.4 H, Lymph % (Auto) 12.3 L, Hamblen % (Auto) 5.1, Eos % (Auto) 5.0, Baso % (Auto) 0.5, Absolute Neuts (auto) 7.9 H, Absolute Lymphs (auto) 1.27, Nucleated RBC % 0 06/14/20 03:15: PT 13.8, INR 1.1 06/14/20 03:15: Sodium 138, Potassium 4.0, Chloride 105, Carbon Dioxide 24.0, Anion Gap 9, BUN 26 H, Creatinine 1.12 H, Estim Creat Clear Calc 51.67, Est GFR (MDRD) Af Amer 65, Est GFR (MDRD) Non-Af 54 L, BUN/Creatinine Ratio 23.2 H, Glucose 257 H, Calcium 9.0 Current Medications Acetaminophen (Acetaminophen 650 Mg/20 Ml Udc) 650 mg GT Q6H PRN PRN PRN Reason: TEMP > 100.5 F Albuterol Sulfate (Albuterol Ih 8.5 Gm (Proair) Inhaler (200 Puffs)) 2 puff INHALATION Q4H PRN PRN PRN Reason: SOB/WHEEZING Albuterol Sulfate (Albuterol 2.5 Mg/3 Ml Vial.Neb.) 2.5 mg INHALATION Q2H PRN PRN PRN Reason: dyspnea, wheezing Last Admin: 05/31/20 07:45 Dose: 2.5 mg Documented by: Calamine/Phenol (Menthol/Lanolin/Calamine/Znox 113 Gm Tube) 1 applic TOPICAL BID [facility]; Protocol Last Admin: 06/13/20 19:56 Dose: 1 applic Documented by: Chlorhexidine Gluconate (Chlorhexidine 15 Ml) 15 ml PO BID [facility] Last Admin: 06/13/20 19:56 Dose: 15 ml Documented by: Dextrose (Dextrose 50%-Water 25 Gm/50 Ml Disp.Syrin) 0 gm IV X1 PRN; Protocol PRN Reason: Hypoglycemia Enoxaparin Sodium (Enoxaparin 80 Mg/0.8 Ml Syringe) 80 mg SC Q12@0600,1800 [facility] Last Admin: 06/13/20 17:43 Dose: Not Given Documented by: Famotidine (Famotidine 20 Mg Tablet) 20 mg GT BID [facility] Last Admin: 06/14/20 11:02 Dose: 20 mg Documented by: Glucagon (Glucagon 1 Mg/Ml Syringe) 1 mg IM .X1 PRN PRN Reason: Hypoglycemia Hydrocortisone Sodium Succinate (Hydrocortisone Sod Succinate 100 Mg/2 Ml Vial) 100 mg IV Q8 [facility] Last Admin: 06/14/20 06:39 Dose: 100 mg Documented by: Sodium Chloride () 250 mls @ 15 mls/hr IV .[id number] PRN PRN Reason: Saline Flush Last Infusion: 06/11/20 20:06 Dose: Infused Documented by: Sodium Chloride () 250 mls @ 15 mls/hr IV .[id number] PRN PRN Reason: Additional IVPB Infusion Norepinephrine Bitartrate 8 mg (/ Sodium Chloride) 250 mls @ 9.375 mls/hr CONT INF .[id number] [facility]; Protocol Last Titration: 06/14/20 10:15 Dose: 26 mcg/min, 48.8 mls/hr Documented by: Vancomycin IV Pharmacy to Dose (1 ea/ Sodium Chloride) 500 mls @ 250 mls/hr IV X1 PRN; Protocol PRN Reason: Rx to Dose Stop: 06/16/20 23:55 Vancomycin HCl 2,000 mg/ (Sodium Chloride) 540 mls @ 250 mls/hr IV Q12H [facility] Stop: 06/16/20 23:55 Last Infusion: 06/14/20 06:22 Dose: Infused Documented by: Dexmedetomidine HCl 1,000 mcg/ (Sodium Chloride) 250 mls @ 9.625 mls/hr CONT INF .[id number] [facility]; Protocol Last Admin: 06/14/20 06:40 Dose: 0.7 mcg/kg/hr, 13.5 mls/hr Documented by: Propofol (Diprivan) 1,000 mg in 100 mls @ 4.62 mls/hr CONT INF .Q12H [facility]; Protocol Last Admin: 06/14/20 09:48 Dose: Not Given Documented by: Fentanyl Citrate 1,000 mcg/ (Sodium Chloride) 100 mls @ 5 mls/hr CONT INF .Q20H [facility]; Protocol Last Admin: 06/14/20 06:39 Dose: 150 mcg/hr, 15 mls/hr Documented by: Piperacillin Sod/Tazobactam (Sod 3.375 gm/ Sodium Chloride) 50 mls @ 12.5 mls/hr IV Q8 [facility] Last Infusion: 06/14/20 09:37 Dose: Infused Documented by: Enteral Nutritional Formula (Vital Af 1.2 Rick Liquid) 1,000 mls @ 60 mls/hr GT .[id number] [facility] Last Admin: 06/14/20 03:31 Dose: Not Given Documented by: Insulin Glargine (Insulin Glargine 100 Units/Ml Pen) 10 units SC BID [facility] Last Admin: 06/13/20 22:50 Dose: 10 u Documented by: Insulin Human Lispro (Insulin Lispro 100 Unit/Ml Insuln.Pen) 0 unit SC Q6H [facility]; Protocol Last Admin: 06/14/20 05:55 Dose: Not Given Documented by: Melatonin (Melatonin 3 Mg Tablet) 3 mg GT QHS PRN PRN PRN Reason: INSOMNIA Nystatin (Nystatin Powder 15gm Bottle) 1 applic TOPICAL BID [facility]; Protocol Last Admin: 06/13/20 19:56 Dose: 1 applic Documented by: Ondansetron HCl (Ondansetron 4 Mg/2 Ml Vial) 4 mg IV Q8H PRN PRN PRN Reason: NAUSEA/VOMITING Last Admin: 06/12/20 14:27 Dose: 4 mg Documented by: Polyethylene Glycol (Polyethylene Glycol 3350 17 Gm Packet) 17 gm GT DAILY PRN PRN Reason: Constipation Potassium Chloride (Potassium Chl Soln 20 Meq/15 Ml Udc) 20 meq GT BID@1000,1700 [facility] Quetiapine Fumarate (Quetiapine 25 Mg Tablet) 50 mg GT BID [facility] Last Admin: 06/14/20 11:02 Dose: 50 mg Documented by: Sodium Chloride (0.9% Saline Lock 10 Ml Syringe) 10 - 40 ml IV UD PRN PRN Reason: SALINE FLUSH Last Admin: 06/13/20 05:26 Dose: 20 ml Documented by: Assessment/Plan All Active Problems (This Medical Record has been edited. Action required.) Pneumonia due to COVID-19 virus (Acute) Respiratory insufficiency (Acute) SARS (severe acute respiratory syndrome) (Acute) Unable to eat (Acute) 55-year-old female with long-term respiratory failure 1. The patient is receiving tracheostomy today. I discussed PEG tube placement with the patient's today. I discussed the risks including not limited to bleeding, infection, colonic injury, dislodgment of feeding tube. The patie nt's understands the risks and consented for the procedure. I explained endoscopy in detail to the patient's . I explained the risks including but not limited to stroke or heart attack with anesthesia, perforation of the GI tract, bleeding, infection. I explained that any of these could necessitate further emergency surgery. The patient's understands and all questions were answered sufficiently. The patient's wishes to proceed with procedure. Ben Mcelroy MD Pager: [facility] [address] [place] [address], [address] [place] [address] Office:
[2020-06-14 14:00] LABS: Bedside Glucose 339 mg/dL (70-110)
[2020-06-14] MEDS: Lidocaine 1%/Epi 1:200 (30ml) 30 ML AMPUL (14:00)
--- NOTE | 2020-06-14 15:13 | OP.PCM_ITS ---
Report of Operation Date of Procedure: 06/14/20 Pre-Operative Diagnosis: respiratory failure Post-Operative Diagnosis: respiratory failure Surgery/Procedure Performed:: tracheotomy Description of Surgical Findings:: #6 cuffed Shiley tube placed Type of Anesthesia:: General Anesthesiologist: Roberto Estrella Estimated Blood Loss (mL): minimal Description of Procedure: The patient was taken to the operating room 06/14/19. She was placed in supine position on the operating room table. She was given sufficient general anesthesia. The neck was prepped and draped sterilely. 1% lidocaine with epinephrine injected into the skin overlying the intended surgical incision site. An incision was made with 15 blade. This was carried down through to the subcutaneous tissue. Subcutaneous lipectomy was then performed using Bovie cautery. The midline raphae was identified. The strap muscles were lateralized with Allis clamps. The cricoid cartilage was identified. A cricoid hook was used to the superiorize the trachea. The thyroid isthmus was clamped, cut and ligated with 2-0 chromic on each cut end. The first and second tracheal rings a ppeared to be fused. Thus, I elected to remove the third tracheal ring. Incisions were made in the trachea with a 15 blade and the anterior aspect of the third tracheal ring was removed with Medel scissors. The fourth tracheal ring was split. A #6 Shiley cuffed tracheotomy tube was inserted into the trachea. The inner cannula was placed and the cuff was inflated. The anesthesia circuit was hooked to the tracheotomy tube and immediate visualization of CO2 was seen. The tracheotomy was sewn to the skin with 3-0 silk. Trach ties were placed around the patient's neck and the tracheotomy was tied as well. She was removed from the OR in stable condition. Blood loss minimal, replacement none. Sponge, needle and instrument count were correct at the end of the procedure.
--- NOTE | 2020-06-14 15:15 | RAD_ITS ---
STUDY: X-RAY CHEST REASON FOR EXAM: Female, 55 years old. S/p tracheotomy, evaluate for pneumothorax TECHNIQUE: Single AP portable view of the chest. COMPARISON: Comparison is made with prior study dated 06/12/2020. FINDINGS: A tracheostomy tube has been placed. The tip is at 5.1 cm proximal to the damon. Once again, a right-sided PICC line catheter has been placed. The tip is at the junction of the superior vena cava and right atrium. EKG electrodes are seen. Since prior study, there has been mild degree of improved aeration of both lungs. There is no demonstrated pleural abnormality. Normal size heart. Normal mediastinum and lillie. Normal visualized pulmonary arteries. Normal visualized aortic arch and descending thoracic aorta. Normal visualized thoracic spine. Normal visualized ribs, clavicles, and shoulders. There is no demonstrated abnormality of the visualized soft tissue structures of the upper abdomen. RAD/Chest 1 View (Portable) IMPRESSION: Status post tracheostomy. The tip of the tracheostomy tube is at 5.1 cm proximal to the damon. There is no evidence of pneumothorax. Since prior study, there has been improved aeration of both lungs. Electronically Signed: Mauricio Sifuentes, at 15:32 EST , Service support ,
--- NOTE | 2020-06-14 16:32 | NURSING ---
[phone] pt in OR.
[2020-06-14] MEDS: Insulin Lispro 100 UNIT/ML INSULN.PEN SC ×2 (18:20→23:14)
[2020-06-14] MEDS: Lidocaine 4% 50 ML Bottle (18:21)
[2020-06-14] MEDS: 0.9% Saline Lock 10 ML Syringe IV ×2 (18:32→19:53)
[2020-06-14 18:52] LABS: Vancomycin, Trough Level 26.3 ug/mL (5.0-15.0)
[2020-06-14 19:06] LABS: Bedside Glucose 319 mg/dL (70-110)
--- NOTE | 2020-06-14 19:46 | PCM.RX.CS ---
Consult Pharmacy has been consulted to manage selected antiobiotic: Vancomycin Type of Consult: Follow-up Labs: Sodium 138 mmol/L (136-145) 06/14/20 03:15 Potassium 4.0 mmol/L (3.5-5.1) 06/14/20 03:15 Chloride 105 mmol/L (98-107) 06/14/20 03:15 Carbon Dioxide 24.0 mmol/L (21.0-32.0) 06/14/20 03:15 Anion Gap 9 (5-15) 06/14/20 03:15 BUN 26 mg/dL (7-18) H 06/14/20 03:15 Creatinine 1.12 mg/dL (0.55-1.02) H 06/14/20 03:15 Est GFR (MDRD) Af Amer 65 mL/min (>60) 06/14/20 03:15 Est GFR (MDRD) Non-Af 54 mL/min (>60) L 06/14/20 03:15 BUN/Creatinine Ratio 23.2 RATIO (10-20) H 06/14/20 03:15 Glucose 257 mg/dL (74-106) H 06/14/20 03:15 Vancomycin Trough 26.3 ug/mL (5.0-15.0) H 06/14/20 18:30 Microbiology: Microbiology 06/13/20 06:45 Sputum, Tracheal Aspirate Gram Stain - Final 06/13/20 06:45 Sputum, Tracheal Aspirate Respiratory Culture - Preliminary Haemophilus influenzae Staphylococcus aureus 06/12/20 08:30 Stool C. difficile DNA Amplification - Final 06/10/20 12:30 Blood Culture (Wb) - Left Wrist Blood Culture - Preliminary No growth in 48 hours. 06/10/20 06:55 Blood Culture (Wb) - Left Forearm Blood Culture - Preliminary No growth in 48 hours. 06/10/20 11:30 Sputum, Induced/Lukens Gram Stain - Final 06/10/20 11:30 Sputum, Induced/Lukens Respiratory Culture - Final Meth. resistant Staph. aureus 06/10/20 07:00 Urine Catheter - Cuellar Urine Culture - Final Yeast, not Rand albicans 06/07/20 10:40 Sputum, Induced/Lukens Gram Stain - Final 06/07/20 10:40 Sputum, Induced/Lukens Respiratory Culture - Final Meth. resistant Staph. aureus 06/01/20 06:40 Sputum, Induced/Lukens Gram Stain - Final 06/01/20 06:40 Sputum, Induced/Lukens Respiratory Culture - Final Meth. resistant Staph. aureus 05/28/20 21:15 Sputum, Induced/Lukens Gram Stain - Final 05/28/20 21:15 Sputum, Induced/Lukens Respiratory Culture - Final 05/29/20 11:00 Urine Catheter - Cuellar Urine Culture - Final Presumptive E. coli 05/26/20 04:05 Blood Culture (Wb) - Right Hand Blood Culture - Final No growth in 5 days. 05/26/20 03:48 Blood Culture (Wb) - Anticubital Right Blood Culture - Final No growth in 5 days. Goal Trough: 15-20 mcg/mL Pharmacy Plan for Drug Dosing: VANCOMYCIN LEVEL RECEIVED Current Vancomycin Dose: 2000MG Q12H Number of Doses Received: 20 Vancomycin Level: 26.3 MG/DL Hours Since Last Dose: 14.5 Renal Function: SCR 1.12, CRCL 60.1 MG/DL USING ADJUSTED BW Renal Function Trend: WORSENED Vancomycin Plan/Comments: PER AUG, DOSE HUNG AT 1822 AND TROUGH DRAWN AT 1830. SPOKE TO NURSE WHO CLARIFIED THAT SHE DANGELO TROUGH PRIOR TO HANGING DOSE. ABOUT 1 HOUR INFUSED. ASKED NURSE TO STOP THE BAG AT 1930. WILL DRAW A LEVEL IN 24 HOURS AND ASSESS IF VANCO CAN BE RESTARTED. Pharmacy Service will continue to monitor and adjust dosing as required. Labs to be done on [date and time ordered]: 06/15/20 @ 1830
[2020-06-15] VITALS (54 sets, daily range): BP systolic 98–162; BP diastolic 48–106; PULSE 54–114; RESP 13–33; TEMP 36.8–38.1; O2SAT 88–100
[2020-06-15] MEDS: Dexmedetomidine 1,000 mcg in 0.9% NS 240 mL 13.5 MCG CONT INF (00:22)
[2020-06-15 01:16] LABS: Bedside Glucose 298 mg/dL (70-110)
[2020-06-15] MEDS: 0.9% Saline Lock 10 ML Syringe IV ×3 (03:38→15:26)
[2020-06-15 03:58] LABS: Absolute Lymphocyte Count 1.11 X10^3/uL (0.83-4.51); Absolute Neutrophil Count 7.3 X10^3/uL (2.0-7.7); Basophil# 0.06 X10^3/uL; Basophil% 0.7 % (0-1); Hematocrit 33.7 % (37-47); Hemoglobin 10.3 g/dL (12.0-15.0); Lymphocyte # 1.11 X10^3/ul (4.0); Lymphocyte % 12.5 % (19-41); Mean Corp Hgb Conc 30.6 g/dL (32-36); Mean Corpuscular Hgb 27.2 pg (27.0-32.0); Mean Corpuscular Volume 88.9 fL (81-99); Mean Platelet Vol. 10.7 fl (6.2-12.0); Monocyte# 0.35 X10^3/uL; NRBC Flagged by Analyzer 0 % (0-5); Neutrophil % 82.3 % (47-70); Platelet Count 266 K/mm3 (150-450); RBC Distribution Width CV 13.6 % (11.6-14.6); Red Blood Count 3.79 M/mm3 (4.2-5.4); White Blood Count 8.9 K/mm3 (4.4-11.0)
[2020-06-15] MEDS: TITRATION PARAMETER CHANGE 1 EACH IV (04:02)
[2020-06-15 04:16] LABS: ALB/GLOB Ratio 0.5 RATIO (0.9-2.4); AST(SGOT) 12 U/L (15-37); Alanine Aminotransfer ALT/SGPT 33 U/L (13-56); Albumin, Serum 2.2 g/dL (3.2-5.0); Alkaline Phosphatase 86 U/L (45-117); Anion Gap 8 (5-15); BUN 30 mg/dL (7-18); BUN/Creat Ratio 27.5 RATIO (10-20); Calcium,Total 8.3 mg/dL (8.5-10.1); Chloride 108 mmol/L (98-107); Creatinine, Serum 1.09 mg/dL (0.55-1.02); EST Glomerular Filtration Rate 56 mL/min (>60); Est Glom Filt Rate - Afr Amer 67 mL/min (>60); Estimated Creatinine Clearance 53.09 ml/min; Globulin 4.7 g/dL (2.2-4.2); Glucose 329 mg/dL (74-106); Potassium 4.3 mmol/L (3.5-5.1); Protein, Total 6.9 g/dL (6.4-8.2); Sodium Level 139 mmol/L (136-145)
[2020-06-15] MEDS: Insulin Lispro 100 UNIT/ML INSULN.PEN SC ×4 (05:01→23:57)
[2020-06-15] MEDS: Hydrocortisone Sod Succinate 100 MG/2 ML Vial IV ×3 (05:01→22:32)
[2020-06-15 05:20] LABS: Bedside Glucose 328 mg/dL (70-110)
--- NOTE | 2020-06-15 07:30 | PCM.PN.HOSP ---
Patient Problems: Active and Suspected Problems (This Medical Record has been edited. Action required.) Pneumonia due to COVID-19 virus (Acute) Respiratory insufficiency (Acute) SARS (severe acute respiratory syndrome) (Acute) Unable to eat (Acute) Subjective: Patient seen and examined. She had tracheostomy placed yesterday by ENT. She is to have PEG tube placement today. Patient remains febrile and temperature is 100.6 ?F today. She remains on sedation and also on Levophed. Vitals/I&O's: Vital Signs Temp Pulse Resp BP Pulse Ox 100.6 F H 57 L 18 131/55 H 96 06/15/20 07:00 06/15/20 07:00 06/15/20 07:00 06/15/20 07:00 06/15/20 07:00 Oxygen Flow Rate (L/min) 6 Oxygen Delivery Method Mechanical Ventilator Weight: 164 lb 0.383 oz Body Mass Index (BMI) 28.1 Finger Stick Blood Glucose 377 Intake and Output for Last 24 Hours 06/13/20 06/14/20 06/15/20 23:59 23:59 23:59 Intake Total 3918.96 / 3982.46 2790.56 / 2826.56 466.62 / 466.62 Output Total 2610 / 2610 2145 / 2145 525 / 525 Balance 1308.96 / 1372.46 645.56 / 681.56 -58.38 / -58.38 General: Alert, Cooperative, No apparent distress, - - intubated, sedated, RASS score is 0 HEENT: Atraumatic, PERRLA, EOMI, Normocephalic; tracheostomy in place Oral: Dry Mucosa Neck: Supple, No JVD, Negative Carotid Bruits Lungs: Clear to auscultation, Normal air movement, - - intubated, sedated Cardiovascular: Regular rate, Regular Rhythm, Normal S1, Normal S2, No murmurs Abdomen: Bowel Sounds Present, Soft, Non Tender, Non-Distended, No Hepato-splenomegaly Extremities: No clubbing, No cyanosis, No edema, Capillary Refill Less than 3 Seconds Skin: No rashes, No breakdown Musculoskeletal: No Tenderness to Palpation of Joints or Extremities Lymphatic: No Cervical, Supraclavicular, or Inguinal Adenopathy Neurological: Cranial nerves II-XII grossly intact, Neuro grossly intact, - - intubated, sedated, RASS score is 0 Psych/Mental Status: Normal Affect Microbiology Past 72 Hours 06/10/20 06:55 Blood Culture (Wb) - Left Forearm Blood Culture - Final No growth in 5 days. 06/13/20 06:45 Sputum, Tracheal Aspirate Gram Stain - Final 06/13/20 06:45 Sputum, Tracheal Aspirate Respiratory Culture - Preliminary Haemophilus influenzae Staphylococcus aureus 06/12/20 08:30 Stool C. difficile DNA Amplification - Final 06/10/20 12:30 Blood Culture (Wb) - Left Wrist Blood Culture - Preliminary No growth in 48 hours. 06/10/20 11:30 Sputum, Induced/Lukens Gram Stain - Final 06/10/20 11:30 Sputum, Induced/Lukens Respiratory Culture - Final Meth. resistant Staph. aureus Laboratory Results 06/14/20 12:54: POC Glucose 339 H 06/14/20 18:17: POC Glucose 319 H 06/14/20 18:30: Vancomycin Trough 26.3 H 06/14/20 23:12: POC Glucose 298 H 06/15/20 03:35: WBC 8.9, RBC 3.79 L, Hgb 10.3 L, Hct 33.7 L, MCV 88.9, MCH 27.2, MCHC 30.6 L, RDW Std Deviation 44.0 H, RDW Coeff of Osorio 13.6, Plt Count 266, MPV 10.7, Immature Gran % (Auto) 0.500, Neut % (Auto) 82.3 H, Lymph % (Auto) 12.5 L, [place] % (Auto) 4.0, Eos % (Auto) 0.0, Baso % (Auto) 0.7, Absolute Neuts (auto) 7.3, Absolute Lymphs (auto) 1.11, Nucleated RBC % 0 06/15/20 03:35: Sodium 139, Potassium 4.3, Chloride 108 H, Carbon Dioxide 23.0, Anion Gap 8, BUN 30 H, Creatinine 1.09 H, Estim Creat Clear Calc 53.09, Est GFR (MDRD) Af Amer 67, Est GFR (MDRD) Non-Af 56 L, BUN/Creatinine Ratio 27.5 H, Glucose 329 H, Calcium 8.3 L, Total Bilirubin 0.40, AST 12 L, ALT 33, Alkaline Phosphatase 86, Total Protein 6.9, Albumin 2.2 L, Globulin 4.7 H, Albumin/Globulin Ratio 0.5 L 06/15/20 05:00: POC Glucose 328 H Current Medications Acetaminophen (Acetaminophen 650 Mg/20 Ml Udc) 650 mg GT Q6H PRN PRN PRN Reason: TEMP > 100.5 F Albuterol Sulfate (Albuterol Ih 8.5 Gm (Proair) Inhaler (200 Puffs)) 2 puff INHALATION Q4H PRN PRN PRN Reason: SOB/WHEEZING Albuterol Sulfate (Albuterol 2.5 Mg/3 Ml Vial.Neb.) 2.5 mg INHALATION Q2H PRN PRN PRN Reason: dyspnea, wheezing Last Admin: 05/31/20 07:45 Dose: 2.5 mg Documented by: Calamine/Phenol (Menthol/Lanolin/Calamine/Znox 113 Gm Tube) 1 applic TOPICAL BID [facility]; Protocol Last Admin: 06/14/20 19:54 Dose: 1 applic Documented by: Chlorhexidine Gluconate (Chlorhexidine 15 Ml) 15 ml PO BID [facility] Last Admin: 06/14/20 19:54 Dose: 15 ml Documented by: Dextrose (Dextrose 50%-Water 25 Gm/50 Ml Disp.Syrin) 0 gm IV X1 PRN; Protocol PRN Reason: Hypoglycemia Enoxaparin Sodium (Enoxaparin 80 Mg/0.8 Ml Syringe) 80 mg SC Q12@0600,1800 [facility] Last Admin: 06/15/20 05:02 Dose: Not Given Documented by: Famotidine (Famotidine 20 Mg Tablet) 20 mg GT BID [facility] Last Admin: 06/14/20 19:53 Dose: Not Given Documented by: Glucagon (Glucagon 1 Mg/Ml Syringe) 1 mg IM .X1 PRN PRN Reason: Hypoglycemia Hydrocortisone Sodium Succinate (Hydrocortisone Sod Succinate 100 Mg/2 Ml Vial) 100 mg IV Q8 [facility] Last Admin: 06/15/20 05:01 Dose: 100 mg Documented by: Sodium Chloride () 250 mls @ 15 mls/hr IV .[id number] PRN PRN Reason: Saline Flush Last Infusion: 06/11/20 20:06 Dose: Infused Documented by: Sodium Chloride () 250 mls @ 15 mls/hr IV .[id number] PRN PRN Reason: Additional IVPB Infusion Norepinephrine Bitartrate 8 mg (/ Sodium Chloride) 250 mls @ 9.375 mls/hr CONT INF .[id number] [facility]; Protocol Last Titration: 06/15/20 07:00 Dose: 14 mcg/min, 26.3 mls/hr Documented by: Vancomycin IV Pharmacy to Dose (1 ea/ Sodium Chloride) 500 mls @ 250 mls/hr IV X1 PRN; Protocol PRN Reason: Rx to Dose Stop: 06/16/20 23:55 Dexmedetomidine HCl 1,000 mcg/ (Sodium Chloride) 250 mls @ 9.3 mls/hr CONT INF .[id number] [facility]; Protocol Last Titration: 06/15/20 07:00 Dose: 0.7 mcg/kg/hr, 13 mls/hr Documented by: Fentanyl Citrate 1,000 mcg/ (Sodium Chloride) 100 mls @ 5 mls/hr CONT INF .Q20H [facility]; Protocol Last Titration: 06/15/20 07:00 Dose: 125 mcg/hr, 12.5 mls/hr Documented by: Piperacillin Sod/Tazobactam (Sod 3.375 gm/ Sodium Chloride) 50 mls @ 12.5 mls/hr IV Q8 [facility] Last Admin: 06/15/20 05:22 Dose: 12.5 mls/hr Documented by: Insulin Glargine (Insulin Glargine 100 Units/Ml Pen) 10 units SC BID [facility] Last Admin: 06/14/20 23:15 Dose: Not Given Documented by: Insulin Human Lispro (Insulin Lispro 100 Unit/Ml Insuln.Pen) 0 unit SC Q6H [facility]; Protocol Last Admin: 06/15/20 05:01 Dose: 8 u Documented by: Melatonin (Melatonin 3 Mg Tablet) 3 mg GT QHS PRN PRN PRN Reason: INSOMNIA Nystatin (Nystatin Powder 15gm Bottle) 1 applic TOPICAL BID [facility]; Protocol Last Admin: 06/14/20 19:53 Dose: 1 applic Documented by: Ondansetron HCl (Ondansetron 4 Mg/2 Ml Vial) 4 mg IV Q8H PRN PRN PRN Reason: NAUSEA/VOMITING Last Admin: 06/12/20 14:27 Dose: 4 mg Documented by: Polyethylene Glycol (Polyethylene Glycol 3350 17 Gm Packet) 17 gm GT DAILY PRN PRN Reason: Constipation Potassium Chloride (Potassium Chl Soln 20 Meq/15 Ml Udc) 20 meq GT BID@1000,1700 [facility] Last Admin: 06/14/20 18:23 Dose: Not Given Documented by: Quetiapine Fumarate (Quetiapine 25 Mg Tablet) 50 mg GT BID [facility] Last Admin: 06/14/20 19:53 Dose: Not Given Documented by: Sodium Chloride (0.9% Saline Lock 10 Ml Syringe) 10 - 40 ml IV UD PRN PRN Reason: SALINE FLUSH Last Admin: 06/15/20 05:02 Dose: 10 ml Documented by: STROKE Vital Signs/Narrative: Vital Signs Temp Pulse Resp BP Pulse Ox 06/15/20 07:00 100.6 F H 57 L 18 131/55 H 96 06/15/20 06:00 100.6 F H 88 22 H 145/56 H 94 06/15/20 05:00 100.5 F H 87 21 H 137/54 H 95 06/15/20 04:00 100.4 F H 81 21 H 130/55 H 96 Medical Necessity - Tobacco Use Smoking Status: Former smoker Assessment/Plan All Active Problems (This Medical Record has been edited. Action required.) Pneumonia due to COVID-19 virus (Acute) Respiratory insufficiency (Acute) SARS (severe acute respiratory syndrome) (Acute) Unable to eat (Acute) #Acute hypoxic respiratory failure due to COVID 19 infection patient was reintubated; she is now on Precedex and fentanyl for sedation had tracheostomy placed yesterday; for pEG tube placement today she still remains febrile on IV vancomycin and zosyn still in cumulative positive balance by 8.84L on IV lasix 80mg bid. continue tube feeding #Septic shock due to covid pneumonia remains on levophed. completed a course of decadron and remdesivir on levophed drip. on IV vancomycin and zosyn' respiratory culture grew MRSA and H Influenzaae blood cultures negative #Newly diagnosed type 2 diabetes mellitus On admission, A1c was 10.8 though she was not a known diabetic. Currently on Lantus 10 units twice daily with insulin sliding scale. Accu-Cheks AC at bedtime. #Hyponatremia: Resolved. Sodium is 139 today. #Transaminitis: Improved markedly. #GERD: On famotidine #Hypokalemia: Resolved. DVT prophylaxis: Lovenox 40 mg every 12 hours GI prophylaxis: On famotidine. Inpatient E&M: 88114 Subs Hosp L3
[2020-06-15] MEDS: Nystatin Powder 15gm Bottle 1 APPLIC TOPICAL ×2 (09:00→22:34)
[2020-06-15] MEDS: Menthol/Lanolin/Calamine/Znox 113 GM Tube 1 APPLIC TOPICAL ×2 (09:00→22:34)
[2020-06-15] MEDS: Chlorhexidine 15 ML PO ×2 (09:00→22:34)
--- NOTE | 2020-06-15 09:22 | PCM.PN.INT ---
Subjective: Patient did well overnight. Patient did tolerate tracheostomy without significant complications. Patient has had some mild bloody secretions and reports some mild shortness of breath. Some fever has been noted overnight, but patient has been continued on Precedex and fentanyl drips for comfort. Discussed with surgery this morning and plan for potential bedside PEG at approximately 12:15 PM. Objective: A 12:41 PM, endoscopy staff was at the bedside. Patient was on Precedex at 0.7 and fentanyl at 100 when a timeout was obtained. The patient was given 40 mg of propofol, but additional 30 mg was required for appropriate sedation. Due to course of the procedure, patient required a total of 100 mg of propofol. There was no significant hypotension or hypoxia noted. Patient did have significant coughing about fdc through the procedure but responded well to inline suctioning. See surgical documentation for additional details. General: Alert, Cooperative, No apparent distress, - - Intermittent coughing noted. HEENT: Atraumatic, PERRLA, EOMI, Normocephalic, - - Scleral icterus or injection noted Oral: Moist Mucosa, No Gingival or Mucosal Lesions/ Ulcerations Neck: Supple, No JVD, No Nodes, Trachea Midline Lungs: No rhonchi, No wheeze, No rales, Diminished, - - Symmetric expansion. Cardiovascular: Regular rate, Regular Rhythm, Normal S1, Normal S2, No murmurs, No rub noted, No Gallop Abdomen: Bowel Sounds Present, Soft, Non Tender, Non-Distended Extremities: No clubbing, No cyanosis, Edema - Trace lower extremity Skin: - - No change compared to previous. Slight serous secretion noted around trach Musculoskeletal: No Tenderness to Palpation of Joints or Extremities Lymphatic: No Cervical, Supraclavicular, or Inguinal Adenopathy Neurological: Cranial nerves II-XII grossly intact, Neuro grossly intact, Motor Exam 5/5 strength throughout Psych/Mental Status: Alert and oriented to time, place, person, mood and affect Vital Signs Temp Pulse Resp BP Pulse Ox 38.1 C H 54 L 18 131/55 H 96 06/15/20 07:00 06/15/20 07:00 06/15/20 07:00 06/15/20 07:00 06/15/20 07:00 Oxygen Flow Rate (L/min) 6 Oxygen Delivery Method Mechanical Ventilator Weight: 74.4 kg Body Mass Index (BMI) 28.1 Finger Stick Blood Glucose 377 Intake and Output for Last 24 Hours 06/13/20 06/14/20 06/15/20 23:59 23:59 23:59 Intake Total 3918.96 / 3982.46 2790.56 / 2826.56 466.62 / 466.62 Output Total 2610 / 2610 2145 / 2145 525 / 525 Balance 1308.96 / 1372.46 645.56 / 681.56 -58.38 / -58.38 Labs (Last 48 Hours) 06/13/20 06/13/20 06/13/20 12:10 16:58 22:48 WBC RBC Hgb Hct MCV MCH MCHC RDW Std Deviation RDW Coeff of Osorio Plt Count MPV Immature Gran % (Auto) Neut % (Auto) Lymph % (Auto) [place] % (Auto) Eos % (Auto) Baso % (Auto) Absolute Neuts (auto) Absolute Lymphs (auto) Nucleated RBC % PT INR Sodium Potassium Chloride Carbon Dioxide Anion Gap BUN Creatinine Estim Creat Clear Calc Est GFR (MDRD) Af Amer Est GFR (MDRD) Non-Af BUN/Creatinine Ratio Glucose Calcium Total Bilirubin AST ALT Alkaline Phosphatase Total Protein Albumin Globulin Albumin/Globulin Ratio Vancomycin Trough POC Glucose 199 H 192 H 265 H 06/14/20 06/14/20 06/14/20 03:15 03:15 03:15 WBC 10.3 RBC 4.19 L Hgb 11.8 L Hct 37.2 MCV 88.8 MCH 28.2 MCHC 31.7 L RDW Std Deviation 44.1 H RDW Coeff of Osorio 13.8 Plt Count 259 MPV 11.0 Immature Gran % (Auto) 0.700 Neut % (Auto) 76.4 H Lymph % (Auto) 12.3 L [place] % (Auto) 5.1 Eos % (Auto) 5.0 Baso % (Auto) 0.5 Absolute Neuts (auto) 7.9 H Absolute Lymphs (auto) 1.27 Nucleated RBC % 0 PT 13.8 INR 1.1 Sodium 138 Potassium 4.0 Chloride 105 Carbon Dioxide 24.0 Anion Gap 9 BUN 26 H Creatinine 1.12 H Estim Creat Clear Calc 51.67 Est GFR (MDRD) Af Amer 65 Est GFR (MDRD) Non-Af 54 L BUN/Creatinine Ratio 23.2 H Glucose 257 H Calcium 9.0 Total Bilirubin AST ALT Alkaline Phosphatase Total Protein Albumin Globulin Albumin/Globulin Ratio Vancomycin Trough POC Glucose 06/14/20 06/14/20 06/14/20 12:54 18:17 18:30 WBC RBC Hgb Hct MCV MCH MCHC RDW Std Deviation RDW Coeff of Osorio Plt Count MPV Immature Gran % (Auto) Neut % (Auto) Lymph % (Auto) [place] % (Auto) Eos % (Auto) Baso % (Auto) Absolute Neuts (auto) Absolute Lymphs (auto) Nucleated RBC % PT INR Sodium Potassium Chloride Carbon Dioxide Anion Gap BUN Creatinine Estim Creat Clear Calc Est GFR (MDRD) Af Amer Est GFR (MDRD) Non-Af BUN/Creatinine Ratio Glucose Calcium Total Bilirubin AST ALT Alkaline Phosphatase Total Protein Albumin Globulin Albumin/Globulin Ratio Vancomycin Trough 26.3 H POC Glucose 339 H 319 H 06/14/20 06/15/20 06/15/20 23:12 03:35 03:35 WBC 8.9 RBC 3.79 L Hgb 10.3 L Hct 33.7 L MCV 88.9 MCH 27.2 MCHC 30.6 L RDW Std Deviation 44.0 H RDW Coeff of Osorio 13.6 Plt Count 266 MPV 10.7 Immature Gran % (Auto) 0.500 Neut % (Auto) 82.3 H Lymph % (Auto) 12.5 L [place] % (Auto) 4.0 Eos % (Auto) 0.0 Baso % (Auto) 0.7 Absolute Neuts (auto) 7.3 Absolute Lymphs (auto) 1.11 Nucleated RBC % 0 PT INR Sodium 139 Potassium 4.3 Chloride 108 H Carbon Dioxide 23.0 Anion Gap 8 BUN 30 H Creatinine 1.09 H Estim Creat Clear Calc 53.09 Est GFR (MDRD) Af Amer 67 Est GFR (MDRD) Non-Af 56 L BUN/Creatinine Ratio 27.5 H Glucose 329 H Calcium 8.3 L Total Bilirubin 0.40 AST 12 L ALT 33 Alkaline Phosphatase 86 Total Protein 6.9 Albumin 2.2 L Globulin 4.7 H Albumin/Globulin Ratio 0.5 L Vancomycin Trough POC Glucose 298 H 06/15/20 05:00 WBC RBC Hgb Hct MCV MCH MCHC RDW Std Deviation RDW Coeff of Osorio Plt Count MPV Immature Gran % (Auto) Neut % (Auto) Lymph % (Auto) [place] % (Auto) Eos % (Auto) Baso % (Auto) Absolute Neuts (auto) Absolute Lymphs (auto) Nucleated RBC % PT INR Sodium Potassium Chloride Carbon Dioxide Anion Gap BUN Creatinine Estim Creat Clear Calc Est GFR (MDRD) Af Amer Est GFR (MDRD) Non-Af BUN/Creatinine Ratio Glucose Calcium Total Bilirubin AST ALT Alkaline Phosphatase Total Protein Albumin Globulin Albumin/Globulin Ratio Vancomycin Trough POC Glucose 328 H Microbiology 06/13/20 06:45 Sputum, Tracheal Aspirate Gram Stain - Final 06/13/20 06:45 Sputum, Tracheal Aspirate Respiratory Culture - Preliminary Haemophilus influenzae Staphylococcus aureus 06/10/20 06:55 Blood Culture (Wb) - Left Forearm Blood Culture - Final No growth in 5 days. Clinical Impression(s) from Imaging Studies Chest X-Ray 06/14/20 15:15 IMPRESSION: Status post tracheostomy. The tip of the tracheostomy tube is at 5.1 cm proximal to the damon. There is no evidence of pneumothorax. Since prior study, there has been improved aeration of both lungs. Electronically Signed: Mauricio Bear, at 15:32 EST , Service support , Medical Necessity - Tobacco Use Smoking Status: Former smoker Assessment/Plan All Active Problems (This Medical Record has been edited. Action required.) Pneumonia due to COVID-19 virus (Acute) Respiratory insufficiency (Acute) SARS (severe acute respiratory syndrome) (Acute) Unable to eat (Acute) RECOMMENDATIONS: 1. Continue empiric Zosyn over concerns for aspiration to complete a 7-day course. 2. Wean FiO2 and PEEP to maintain oxygen saturations at or above 90%. 3. Continue therapeutic Lovenox as ordered. 4. Continue diuretic regimen as tolerated by hemodynamics and renal function. 5. Wean Levophed to maintain a mean arterial pressure at or above 65 mmHg. 6. Continue scheduled Seroquel. Anticipate fentanyl postop, but discontinuation of sedation 7. Await PEG tube placement. 8. Anticipate discharge to LTAC later this week IMPRESSIONS: 1. Acute hypoxemic respiratory failure secondary to COVID-19 pneumonia The patient continued to decompensate from a respiratory perspective following admission, eventually requiring ICU transfer and subsequent intubation on May 28. The patient has completed a treatment course of remdesivir and Decadron. The patient, to date, has failed 2 attempts at extubation. During her last attempt on 06/12, there was concern for an acute aspiration event. Therefore, in addition to her vancomycin, which was being continued to treat her MRSA, the patient was also started empirically on Zosyn. Patient does have a positive tracheal aspirate. This is likely secondary to aspiration. We will continue with antibiotics for 7 days. Anticipate discontinuation of Precedex and fentanyl drip after PEG placement later today 2. Septic shock Continue current supportive measures including vasopressor support to maintain a mean arterial pressure at or above 65 mmHg. Continue antimicrobials per ID recommendations. She continues to require significant pressors despite removal of propofol. Clinical suspicion for an element of adrenal insufficiency given protracted courses of Decadron. Patient will be placed on stress dose steroids. Patient was febrile overnight, which may be secondary to aspiration pneumonia, chemical pneumonitis or protracted COVID-19. Would continue with precautions for now through the operative procedures as these will be high risk for aerosolization. Anticipate discontinuation of advanced respiratory precautions following PEG 3. Poorly controlled diabetes mellitus Continue Lantus and sliding scale insulin coverage. 4. ICU delirium Resolved. Continue Seroquel as ordered. 5. Obesity/GERD Complicates care, management, recovery and prognosis. Aggressive physical therapy is warranted. TIME: 40 minutes of critical care time, independent of procedures, was spent addressing the patient's acute hypoxemic respiratory failure, COVID-19 pneumonia, septic shock, acute kidney injury, diabetes mellitus, ICU delirium, review of all data and collaboration with the care team. (6 AM to 7 AM) [id number]: [id number] Critical care first hour
--- NOTE | 2020-06-15 10:04 | PN.ID_ITS ---
Patient Problems: Active and Suspected Problems (This Medical Record has been edited. Action required.) Pneumonia due to COVID-19 virus (Acute) Respiratory insufficiency (Acute) SARS (severe acute respiratory syndrome) (Acute) Unable to eat (Acute) Subjective: Awake, trach in place, low grade temps - Physical Exam Vitals/I&O's: Vital Signs Temp Pulse Resp BP Pulse Ox 100.5 F H 70 18 130/71 H 95 06/15/20 09:00 06/15/20 09:00 06/15/20 09:00 06/15/20 09:15 06/15/20 09:00 Oxygen Flow Rate (L/min) 6 Oxygen Delivery Method Mechanical Ventilator Weight: 74.4 kg Body Mass Index (BMI) 28.1 Finger Stick Blood Glucose 377 Intake and Output for Last 24 Hours 06/13/20 06/14/20 06/15/20 23:59 23:59 23:59 Intake Total 3918.96 / 3982.46 2790.56 / 2826.56 626.45 / 626.45 Output Total 2610 / 2610 2145 / 2145 525 / 525 Balance 1308.96 / 1372.46 645.56 / 681.56 101.45 / 101.45 General: Alert, Cooperative, No apparent distress Lungs: Clear to auscultation, Diminished Cardiovascular: Regular rate, Regular Rhythm Abdomen: Soft, Non Tender, Non-Distended Skin: No rashes Microbiology Past 72 Hours 06/13/20 06:45 Sputum, Tracheal Aspirate Gram Stain - Final 06/13/20 06:45 Sputum, Tracheal Aspirate Respiratory Culture - Preliminary Haemophilus influenzae Staphylococcus aureus 06/10/20 06:55 Blood Culture (Wb) - Left Forearm Blood Culture - Final No growth in 5 days. 06/12/20 08:30 Stool C. difficile DNA Amplification - Final 06/10/20 12:30 Blood Culture (Wb) - Left Wrist Blood Culture - Preliminary No growth in 48 hours. 06/10/20 11:30 Sputum, Induced/[place]uk[place] Gram Stain - Final 06/10/20 11:30 Sputum, Induced/[place]ukens Respiratory Culture - Final Meth. resistant Staph. aureus Laboratory Results 06/14/20 12:54: POC Glucose 339 H 06/14/20 18:17: POC Glucose 319 H 06/14/20 18:30: Vancomycin Trough 26.3 H 06/14/20 23:12: POC Glucose 298 H 06/15/20 03:35: WBC 8.9, RBC 3.79 L, Hgb 10.3 L, Hct 33.7 L, MCV 88.9, MCH 27.2, MCHC 30.6 L, RDW Std Deviation 44.0 H, RDW Coeff of Osorio 13.6, Plt Count 266, MPV 10.7, Immature Gran % (Auto) 0.500, Neut % (Auto) 82.3 H, Lymph % (Auto) 12.5 L, Bureau % (Auto) 4.0, Eos % (Auto) 0.0, Baso % (Auto) 0.7, Absolute Neuts (auto) 7.3, Absolute Lymphs (auto) 1.11, Nucleated RBC % 0 06/15/20 03:35: Sodium 139, Potassium 4.3, Chloride 108 H, Carbon Dioxide 23.0, Anion Gap 8, BUN 30 H, Creatinine 1.09 H, Estim Creat Clear Calc 53.09, Est GFR (MDRD) Af Amer 67, Est GFR (MDRD) Non-Af 56 L, BUN/Creatinine Ratio 27.5 H, Glucose 329 H, Calcium 8.3 L, Total Bilirubin 0.40, AST 12 L, ALT 33, Alkaline Phosphatase 86, Total Protein 6.9, Albumin 2.2 L, Globulin 4.7 H, Albumin/Globulin Ratio 0.5 L 06/15/20 05:00: POC Glucose 328 H Current Medications Acetaminophen (Acetaminophen 650 Mg/20 Ml Udc) 650 mg GT Q6H PRN PRN PRN Reason: TEMP > 100.5 F Albuterol Sulfate (Albuterol Ih 8.5 Gm (Proair) Inhaler (200 Puffs)) 2 puff INHALATION Q4H PRN PRN PRN Reason: SOB/WHEEZING Albuterol Sulfate (Albuterol 2.5 Mg/3 Ml Vial.Neb.) 2.5 mg INHALATION Q2H PRN PRN PRN Reason: dyspnea, wheezing Last Admin: 05/31/20 07:45 Dose: 2.5 mg Documented by: Calamine/Phenol (Menthol/Lanolin/Calamine/Znox 113 Gm Tube) 1 applic TOPICAL BID OLLIE; Protocol Last Admin: 06/14/20 19:54 Dose: 1 applic Documented by: Chlorhexidine Gluconate (Chlorhexidine 15 Ml) 15 ml PO BID [facility] Last Admin: 06/14/20 19:54 Dose: 15 ml Documented by: Dextrose (Dextrose 50%-Water 25 Gm/50 Ml Disp.Syrin) 0 gm IV X1 PRN; Protocol PRN Reason: Hypoglycemia Enoxaparin Sodium (Enoxaparin 80 Mg/0.8 Ml Syringe) 80 mg SC Q12@0600,1800 [facility] Last Admin: 06/15/20 05:02 Dose: Not Given Documented by: Famotidine (Famotidine 20 Mg Tablet) 20 mg GT BID [facility] Last Admin: 06/14/20 19:53 Dose: Not Given Documented by: Glucagon (Glucagon 1 Mg/Ml Syringe) 1 mg IM .X1 PRN PRN Reason: Hypoglycemia Hydrocortisone Sodium Succinate (Hydrocortisone Sod Succinate 100 Mg/2 Ml Vial) 100 mg IV Q8 [facility] Last Admin: 06/15/20 05:01 Dose: 100 mg Documented by: Sodium Chloride () 250 mls @ 15 mls/hr IV .[id number] PRN PRN Reason: Saline Flush Last Infusion: 06/11/20 20:06 Dose: Infused Documented by: Sodium Chloride () 250 mls @ 15 mls/hr IV .[id number] PRN PRN Reason: Additional IVPB Infusion Norepinephrine Bitartrate 8 mg (/ Sodium Chloride) 250 mls @ 9.375 mls/hr CONT INF .[id number] [facility]; Protocol Last Titration: 06/15/20 09:15 Dose: 12 mcg/min, 22.5 mls/hr Documented by: Vancomycin IV Pharmacy to Dose (1 ea/ Sodium Chloride) 500 mls @ 250 mls/hr IV X1 PRN; Protocol PRN Reason: Rx to Dose Stop: 06/16/20 23:55 Dexmedetomidine HCl 1,000 mcg/ (Sodium Chloride) 250 mls @ 9.3 mls/hr CONT INF .[id number] [facility]; Protocol Last Titration: 06/15/20 09:00 Dose: 0.7 mcg/kg/hr, 13 mls/hr Documented by: Fentanyl Citrate 1,000 mcg/ (Sodium Chloride) 100 mls @ 5 mls/hr CONT INF .Q20H [facility]; Protocol Last Titration: 06/15/20 09:00 Dose: 50 mcg/hr, 5 mls/hr Documented by: Piperacillin Sod/Tazobactam (Sod 3.375 gm/ Sodium Chloride) 50 mls @ 12.5 mls/hr IV Q8 [facility] Last Infusion: 06/15/20 09:22 Dose: Infused Documented by: Insulin Glargine (Insulin Glargine 100 Units/Ml Pen) 10 units SC BID [facility] Last Admin: 06/15/20 09:12 Dose: Not Given Documented by: Insulin Human Lispro (Insulin Lispro 100 Unit/Ml Insuln.Pen) 0 unit SC Q6H [facility]; Protocol Last Admin: 06/15/20 05:01 Dose: 8 u Documented by: Melatonin (Melatonin 3 Mg Tablet) 3 mg GT QHS PRN PRN PRN Reason: INSOMNIA Nystatin (Nystatin Powder 15gm Bottle) 1 applic TOPICAL BID [facility]; Protocol Last Admin: 06/14/20 19:53 Dose: 1 applic Documented by: Ondansetron HCl (Ondansetron 4 Mg/2 Ml Vial) 4 mg IV Q8H PRN PRN PRN Reason: NAUSEA/VOMITING Last Admin: 06/12/20 14:27 Dose: 4 mg Documented by: Polyethylene Glycol (Polyethylene Glycol 3350 17 Gm Packet) 17 gm GT DAILY PRN PRN Reason: Constipation Potassium Chloride (Potassium Chl Soln 20 Meq/15 Ml Udc) 20 meq GT BID@1000,1700 [facility] Last Admin: 06/14/20 18:23 Dose: Not Given Documented by: Quetiapine Fumarate (Quetiapine 25 Mg Tablet) 50 mg GT BID [facility] Last Admin: 06/14/20 19:53 Dose: Not Given Documented by: Sodium Chloride (0.9% Saline Lock 10 Ml Syringe) 10 - 40 ml IV UD PRN PRN Reason: SALINE FLUSH Last Admin: 06/15/20 05:02 Dose: 10 ml Documented by: Medical Necessity - Tobacco Use Smoking Status: Former smoker Route of nutrition/ use of supplements: [] Nutritional Intake: [] IV Site: [] Cuellar Catheter: [] - Assessment/Plan Antibiotics: [] Assessment/Plan: [] Active and Suspected Problems (This Medical Record has been edited. Action required.) Pneumonia due to COVID-19 virus (Acute) Respiratory insufficiency (Acute) SARS (severe acute respiratory syndrome) (Acute) covid with hypoxia - sx start 05/19. Lactate over 2. D-dimer was 0.9, CT neg for PE, on lovenox 40mg bid. Cont dex, completed remdesivir. Ucx with ecoli. Sputum with MRSA. 06/02 started vanc. Repeat sputum again with MRSA and haemophilus. On vanc/zosyn. Overall improved, trach in place. Will follow
--- NOTE | 2020-06-15 12:06 | NURSING ---
0800- called pt's to get consent for PEG tube placement. Did not answer, left message for him to call to get consent signed. 1200- again called pt's to get consent for PEG tube placement. Bill again did not answer. Left a message for him to call back.
--- NOTE | 2020-06-15 13:19 | OP.CCLET_ITS ---
06/15/2020 Rodolfo Velásquez Re : Upper GI endoscopy procedure for Petrona Lala Dear Didier This procedure was performed on Monday, June 15, 2020. My impressions and recommendations are as follows: Impressions : - Non-bleeding gastric ulcer with adherent clot. - An externally removable PEG placement was successfully completed. - No specimens collected. Recommendations : - [facility]. - Please follow the post-PEG recommendations including: external bolster 1 cm from abdominal wall, change dressing once per day, may use PEG tomorrow for feedings and antibiotic ointment to site. - Continue present medications. My findings are described in the full procedure note, which is enclosed. If I can be of further assistance, please feel free to contact me at Doctor phone number(s): , Work: . Sincerely, Ben Mcelroy MD 06/15/2020 1:18:40 PM This report has been signed electronically.
--- NOTE | 2020-06-15 13:19 | OP.EGD_ITS ---
Patient Name: Petrona Lala Procedure Date: 06/15/2020 12:37 PM Date of : 1965 Age: 55 Procedure: Upper GI endoscopy Indications: Dysphagia Providers: Ben Mcelroy MD Medicines: Monitored Anesthesia Care Patient Profile: This is a 55 year old female. Refer to note in patient chart for documentation of history and physical. Complications: No immediate complications. Procedure: Pre-Anesthesia Assessment: - Prior to the procedure, a History and Physical was performed, and patient medications and allergies were reviewed. The patient's tolerance of previous anesthesia was also reviewed. The risks and benefits of the procedure and the sedation options and risks were discussed with the patient. All questions were answered, and informed consent was obtained. Prior Anticoagulants: The patient has taken no previous anticoagulant or antiplatelet agents. After reviewing the risks and benefits, the patient was deemed in satisfactory condition to undergo the procedure. - Prior to the procedure, a History and Physical was performed, and patient medications and allergies were reviewed. The patient's tolerance of previous anesthesia was also reviewed. The risks and benefits of the procedure and the sedation options and risks were discussed with the patient. All questions were answered, and informed consent was obtained. Prior Anticoagulants: The patient has taken Lovenox (enoxaparin), last dose was 1 day prior to procedure. After reviewing the risks and benefits, the patient was deemed in satisfactory condition to undergo the procedure. After obtaining informed consent, the endoscope was passed under direct vision. Throughout the procedure, the patient's blood pressure, pulse, and oxygen saturations were monitored continuously. The Endoscope was introduced through the mouth, and advanced to the second part of duodenum. The upper GI endoscopy was accomplished without difficulty. The patient tolerated the procedure well. Scope In: 12:43:27 PM Scope Out: 12:49:07 PM Total Procedure Duration Time 0 hours 5 minutes 40 seconds Findings: One non-bleeding cratered gastric ulcer with adherent clot was found in the stomach. The patient was placed in the supine position for PEG placement. The stomach was insufflated to appose gastric and abdominal acevedo. A site was located in the body of the stomach with excellent transillumination and manual external pressure for placement. The abdominal wall was marked and prepped in a sterile manner. The area was anesthetized with 4 mL of 0.5% lidocaine. The trocar needle was introduced through the abdominal wall and into the stomach under direct endoscopic view. A snare was introduced through the endoscope and opened in the gastric lumen. The guide wire was passed through the trocar and into the open snare. The snare was closed around the guide wire. The endoscope and snare were removed, pulling the wire out through the mouth. A skin incision was made at the site of needle insertion. The externally removable 20 Fr EndoVive Safety gastrostomy tube was lubricated. The G-tube was tied to the guide wire and pulled through the mouth and into the stomach. The trocar needle was removed, and the gastrostomy tube was pulled out from the stomach through the skin. The external bumper was attached to the gastrostomy tube, and the tube was cut to remove the guide wire. The final position of the gastrostomy tube was confirmed by relook endoscopy, and skin marking noted to be 4 cm at the external bumper. The final tension and compression of the abdominal wall by the PEG tube and external bumper were checked and revealed that the bumper was loose and lightly touching the skin and that the PEG balloon was loose and lightly touching the stomach. The feeding tube was capped, and the tube site cleaned and dressed. Impression: - Non-bleeding gastric ulcer with adherent clot. - An externally removable PEG placement was successfully completed. - No specimens collected. Recommendation: - [facility]. - Please follow the post-PEG recommendations including: external bolster 1 cm from abdominal wall, change dressing once per day, may use PEG tomorrow for feedings and antibiotic ointment to site. - Continue present medications. Procedure Code(s): --- Professional --- 16094, Esophagogastroduodenoscopy, flexible, transoral; with directed placement of percutaneous gastrostomy tube Diagnosis Code(s): --- Professional --- K25.4, Chronic or unspecified gastric ulcer with hemorrhage R13.10, Dysphagia, unspecified CPT copyright 2017 [employer]. All rights reserved. The codes documented in this report are preliminary and upon coating technician review may be revised to meet current compliance requirements. Ben Mcelroy MD 06/15/2020 1:18:40 PM This report has been signed electronically. Number of Addenda: 0 Note Initiated On: 06/15/2020 12:37 PM
--- NOTE | 2020-06-15 13:55 | CASEMGMT ---
Addendum entered by Ivan Lord 06/15/20 16:16: Call back from Marianne Blair @ [facility]. They are reviewing referral and will be in contact tomorrow with CM (Linda PIÑA CM # given) for update. Addendum entered by Ivan Lord 06/15/20 14:48: Spoke with Pati, @ [facility]. No referrals are being accepted this week. Nurse updated that referral will be sent to [facility]. -Referral Faxed to [facility] Marianne Blair PH: [phone] FX: [phone] Original Note: RN JOON Note: call to [facility]. Message left with [place], admission coordinator to see if they are accepting admissions. If they are unable, then referral will be faxed to [facility] in [place]. Jimmy HERNANDEZN [facility]
[2020-06-15] MEDS: Ondansetron 4 MG/2 ML Vial IV (14:13)
[2020-06-15] MEDS: QUEtiapine 25 MG Tablet 50 MG GT ×2 (15:24→22:32)
[2020-06-15] MEDS: Propofol 200 MG/20 ML Vial 100 MG IV BOLUS (15:26)
[2020-06-15] MEDS: Lansoprazole 15 MG Capsule.DR 30 MG NG ×2 (15:28→22:33)
[2020-06-15 17:05] LABS: Bedside Glucose 287 mg/dL (70-110)
[2020-06-15] MEDS: Furosemide 40 MG/4 ML Vial IV (19:57)
[2020-06-15 21:15] LABS: Vancomycin, Random Level 11.1 ug/mL (0.0-15.0)
[2020-06-15 21:46] LABS: Bedside Glucose 301 mg/dL (70-110)
[2020-06-15] MEDS: Dexmedetomidine 1,000 mcg in 0.9% NS 240 mL 13 MCG CONT INF (22:15)
[2020-06-16] VITALS (61 sets, daily range): BP systolic 74–154; BP diastolic 22–84; PULSE 48–118; RESP 14–26; TEMP 36.6–37.2; O2SAT 93–100; BMI 27.1
[2020-06-16 01:05] LABS: Bedside Glucose 387 mg/dL (70-110)
[2020-06-16 05:15] LABS: Absolute Lymphocyte Count 1.35 X10^3/uL (0.83-4.51); Absolute Neutrophil Count 9.2 X10^3/uL (2.0-7.7); Basophil# 0.04 X10^3/uL; Basophil% 0.4 % (0-1); Hematocrit 34.5 % (37-47); Hemoglobin 10.7 g/dL (12.0-15.0); Lymphocyte # 1.35 X10^3/ul (4.0); Lymphocyte % 12.3 % (19-41); Mean Corpuscular Hgb 27.6 pg (27.0-32.0); Mean Corpuscular Volume 89.1 fL (81-99); Mean Platelet Vol. 11.1 fl (6.2-12.0); Monocyte# 0.37 X10^3/uL; Monocyte% 3.4 % (0-10); NRBC Flagged by Analyzer 0 % (0-5); Neutrophil # 9.16 X10^3/uL (2.7-7.7); Neutrophil % 83.5 % (47-70); Platelet Count 263 K/mm3 (150-450); RBC Distribution Width CV 13.6 % (11.6-14.6); RBC Distribution Width SD 43.8 fl (35.1-43.9); Red Blood Count 3.87 M/mm3 (4.2-5.4)
[2020-06-16 05:34] LABS: ALB/GLOB Ratio 0.6 RATIO (0.9-2.4); AST(SGOT) 21 U/L (15-37); Alanine Aminotransfer ALT/SGPT 38 U/L (13-56); Albumin, Serum 2.5 g/dL (3.2-5.0); Alkaline Phosphatase 86 U/L (45-117); Anion Gap 9 (5-15); BUN 34 mg/dL (7-18); BUN/Creat Ratio 30.4 RATIO (10-20); Calcium,Total 8.7 mg/dL (8.5-10.1); Chloride 107 mmol/L (98-107); Creatinine, Serum 1.12 mg/dL (0.55-1.02); EST Glomerular Filtration Rate 54 mL/min (>60); Est Glom Filt Rate - Afr Amer 65 mL/min (>60); Estimated Creatinine Clearance 51.67 ml/min; Globulin 4.5 g/dL (2.2-4.2); Glucose 368 mg/dL (74-106); Potassium 3.5 mmol/L (3.5-5.1); Sodium Level 142 mmol/L (136-145)
[2020-06-16] MEDS: Insulin Lispro 100 UNIT/ML INSULN.PEN SC ×4 (06:37→23:36)
[2020-06-16] MEDS: Hydrocortisone Sod Succinate 100 MG/2 ML Vial IV ×3 (06:37→22:26)
[2020-06-16] MEDS: oxyCODONE 5 MG Tablet PO ×2 (06:38→14:31)
[2020-06-16] MEDS: TITRATION PARAMETER CHANGE 1 EACH IV (06:52)
[2020-06-16 07:20] LABS: Bedside Glucose 353 mg/dL (70-110)
--- NOTE | 2020-06-16 08:23 | PN_ITS ---
Subjective: Patient did okay overnight. Patient has come down on her Levophed to 10, but is still requiring Precedex and fentanyl. Nursing reports that when drips were titrated, patient would go into coughing fits. Patient has been reported to have serous to thick yellow secretions noted. Patient has not had any tube feeds, but is tolerating medications through her PEG. Patient reports her pain is well controlled on current plan. General: Alert, Oriented x3, Cooperative, No apparent distress, - - Periodic coughing fits. Appears comfortable lying in bed. HEENT: Atraumatic, PERRLA, EOMI, Normocephalic, - - Glasses in place. Oral: Moist Mucosa, No Gingival or Mucosal Lesions/ Ulcerations Neck: Supple, No JVD, No Nodes, Trachea Midline, - - Trach with some mild bleeding/serous secretions. No significant erythema or purulent exudate noted. Lungs: No rhonchi, No wheeze, Diminished, Rhonchi - Right greater than left, - - Symmetric expansion Cardiovascular: Normal S1, Normal S2, No murmurs, Bradycardic, No rub noted, No Gallop Abdomen: Bowel Sounds Present, Soft, Non-Distended, Tender - Only around PEG site. PEG is clean, dry and intact Extremities: No clubbing, No cyanosis, Edema - Trace lower extremity Skin: - - Slight irritation around trach and PEG, but no surrounding rash or fluctuance. Musculoskeletal: No Tenderness to Palpation of Joints or Extremities Lymphatic: No Cervical, Supraclavicular, or Inguinal Adenopathy Neurological: Cranial nerves II-XII grossly intact, Neuro grossly intact, Motor Exam 5/5 strength throughout Psych/Mental Status: Alert and oriented to time, place, person, mood and affect Vital Signs Temp Pulse Resp BP Pulse Ox 36.8 C 75 15 129/52 H 97 06/16/20 04:00 06/16/20 08:02 06/16/20 08:02 06/16/20 08:02 06/16/20 08:02 Oxygen Flow Rate (L/min) 6 Oxygen Delivery Method Mechanical Ventilator Weight: 74.1 kg Body Mass Index (BMI) 28.1 Finger Stick Blood Glucose 377 Intake and Output for Last 24 Hours 06/14/20 06/15/20 06/16/20 23:59 23:59 23:59 Intake Total 2790.56 / 2826.56 1258.58 / 1284.86 394.41 / 394.41 Output Total 2145 / 2145 1170 / 1920 950 / 950 Balance 645.56 / 681.56 88.58 / -635.14 -555.59 / -555.59 Labs (Last 48 Hours) 06/14/20 06/14/20 06/14/20 12:54 18:17 18:30 WBC RBC Hgb Hct MCV MCH MCHC RDW Std Deviation RDW Coeff of Osorio Plt Count MPV Immature Gran % (Auto) Neut % (Auto) Lymph % (Auto) Williamson % (Auto) Eos % (Auto) Baso % (Auto) Absolute Neuts (auto) Absolute Lymphs (auto) Nucleated RBC % Sodium Potassium Chloride Carbon Dioxide Anion Gap BUN Creatinine Estim Creat Clear Calc Est GFR (MDRD) Af Amer Est GFR (MDRD) Non-Af BUN/Creatinine Ratio Glucose Calcium Total Bilirubin AST ALT Alkaline Phosphatase Total Protein Albumin Globulin Albumin/Globulin Ratio Vancomycin Trough 26.3 H Random Vancomycin POC Glucose 339 H 319 H 06/14/20 06/15/20 06/15/20 23:12 03:35 03:35 WBC 8.9 RBC 3.79 L Hgb 10.3 L Hct 33.7 L MCV 88.9 MCH 27.2 MCHC 30.6 L RDW Std Deviation 44.0 H RDW Coeff of Osorio 13.6 Plt Count 266 MPV 10.7 Immature Gran % (Auto) 0.500 Neut % (Auto) 82.3 H Lymph % (Auto) 12.5 L Williamson % (Auto) 4.0 Eos % (Auto) 0.0 Baso % (Auto) 0.7 Absolute Neuts (auto) 7.3 Absolute Lymphs (auto) 1.11 Nucleated RBC % 0 Sodium 139 Potassium 4.3 Chloride 108 H Carbon Dioxide 23.0 Anion Gap 8 BUN 30 H Creatinine 1.09 H Estim Creat Clear Calc 53.09 Est GFR (MDRD) Af Amer 67 Est GFR (MDRD) Non-Af 56 L BUN/Creatinine Ratio 27.5 H Glucose 329 H Calcium 8.3 L Total Bilirubin 0.40 AST 12 L ALT 33 Alkaline Phosphatase 86 Total Protein 6.9 Albumin 2.2 L Globulin 4.7 H Albumin/Globulin Ratio 0.5 L Vancomycin Trough Random Vancomycin POC Glucose 298 H 0106/15/20 06/15/20 05:00 12:28 18:30 WBC RBC Hgb Hct MCV MCH MCHC RDW Std Deviation RDW Coeff of Osorio Plt Count MPV Immature Gran % (Auto) Neut % (Auto) Lymph % (Auto) Williamson % (Auto) Eos % (Auto) Baso % (Auto) Absolute Neuts (auto) Absolute Lymphs (auto) Nucleated RBC % Sodium Potassium Chloride Carbon Dioxide Anion Gap BUN Creatinine Estim Creat Clear Calc Est GFR (MDRD) Af Amer Est GFR (MDRD) Non-Af BUN/Creatinine Ratio Glucose Calcium Total Bilirubin AST ALT Alkaline Phosphatase Total Protein Albumin Globulin Albumin/Globulin Ratio Vancomycin Trough Random Vancomycin POC Glucose 328 H 287 H 301 H 06/15/20 06/15/20 06/16/20 20:10 23:54 04:50 WBC 11.0 RBC 3.87 L Hgb 10.7 L Hct 34.5 L MCV 89.1 MCH 27.6 MCHC 31.0 L RDW Std Deviation 43.8 RDW Coeff of Osorio 13.6 Plt Count 263 MPV 11.1 Immature Gran % (Auto) 0.400 Neut % (Auto) 83.5 H Lymph % (Auto) 12.3 L Williamson % (Auto) 3.4 Eos % (Auto) 0.0 Baso % (Auto) 0.4 Absolute Neuts (auto) 9.2 H Absolute Lymphs (auto) 1.35 Nucleated RBC % 0 Sodium Potassium Chloride Carbon Dioxide Anion Gap BUN Creatinine Estim Creat Clear Calc Est GFR (MDRD) Af Amer Est GFR (MDRD) Non-Af BUN/Creatinine Ratio Glucose Calcium Total Bilirubin AST ALT Alkaline Phosphatase Total Protein Albumin Globulin Albumin/Globulin Ratio Vancomycin Trough Random Vancomycin 11.1 POC Glucose 387 H 06/16/20 06/16/20 04:50 06:36 WBC RBC Hgb Hct MCV MCH MCHC RDW Std Deviation RDW Coeff of Osorio Plt Count MPV Immature Gran % (Auto) Neut % (Auto) Lymph % (Auto) Williamson % (Auto) Eos % (Auto) Baso % (Auto) Absolute Neuts (auto) Absolute Lymphs (auto) Nucleated RBC % Sodium 142 Potassium 3.5 Chloride 107 Carbon Dioxide 26.0 Anion Gap 9 BUN 34 H Creatinine 1.12 H Estim Creat Clear Calc 51.67 Est GFR (MDRD) Af Amer 65 Est GFR (MDRD) Non-Af 54 L BUN/Creatinine Ratio 30.4 H Glucose 368 H Calcium 8.7 Total Bilirubin 0.60 AST 21 ALT 38 Alkaline Phosphatase 86 Total Protein 7.0 Albumin 2.5 L Globulin 4.5 H Albumin/Globulin Ratio 0.6 L Vancomycin Trough Random Vancomycin POC Glucose 353 H Microbiology 06/13/20 06:45 Sputum, Tracheal Aspirate Gram Stain - Final 06/13/20 06:45 Sputum, Tracheal Aspirate Respiratory Culture - Final Haemophilus influenzae Meth. resistant Staph. aureus 06/10/20 12:30 Blood Culture (Wb) - Left Wrist Blood Culture - Final No growth in 5 days. 06/10/20 06:55 Blood Culture (Wb) - Left Forearm Blood Culture - Final No growth in 5 days. Medical Necessity - Tobacco Use Smoking Status: Former smoker Assessment/Plan All Active Problems (This Medical Record has been edited. Action required.) Pneumonia due to COVID-19 virus (Acute) Respiratory insufficiency (Acute) SARS (severe acute respiratory syndrome) (Acute) Unable to eat (Acute) RECOMMENDATIONS: 1. Antibiotics per infectious disease 2. Continue vent at current settings 3. Continue therapeutic Lovenox as ordered. 4. Continue diuretic regimen as tolerated by hemodynamics and renal function. 5. Wean Levophed to maintain a mean arterial pressure at or above 65 mmHg. 6. Continue scheduled Seroquel. Wean off fentanyl and Precedex drips using PEG tube if necessary 7. Consider starting tube feeds today if okay with surgery 8. Anticipate discharge to LTAC later this week IMPRESSIONS: 1. Acute hypoxemic respiratory failure secondary to COVID-19 pneumonia The patient continued to decompensate from a respiratory perspective following admission, eventually requiring ICU transfer and subsequent intubation on May 28. The patient has completed a treatment course of remdesivir and Decadron. The patient, to date, has failed 2 attempts at extubation. During her last attempt on 06/12, there was concern for an acute aspiration event. Infectious disease is following. Defer antibiotics to them. Patient does have a positive tracheal aspirate. This is likely secondary to aspiration. We will continue with antibiotics for 7 days. Wean off Precedex and fentanyl drips. No plans to change ventilator at this time. Okay to discontinue advanced respiratory precautions. 2. Septic shock/relative adrenal insufficiency Continue current supportive measures including vasopressor support to maintain a mean arterial pressure at or above 65 mmHg. Continue antimicrobials per ID recommendations. She continues to require significant pressors despite removal of propofol. Clinical suspicion for an element of adrenal insufficiency given protracted courses of Decadron. Patient will be placed on stress dose steroids. Patient was febrile overnight, which may be secondary to aspiration pneumonia, chemical pneumonitis or protracted COVID-19. Would continue with precautions for now through the operative procedures as these will be high risk for aerosolization. Await response of blood pressure following cessation of Precedex. 3. Poorly controlled diabetes mellitus Reinitiate Lantus and sliding scale insulin coverage. May need to titrate up Lantus given stress dose steroids. 4. ICU delirium Resolved. Continue Seroquel as ordered. 5. Obesity/GERD Complicates care, management, recovery and prognosis. Aggressive physical therapy is warranted. TIME: 35 minutes of critical care time, independent of procedures, was spent addressing the patient's acute hypoxemic respiratory failure, COVID-19 pneumonia, septic shock, acute kidney injury, diabetes mellitus, ICU delirium, review of all data and collaboration with the care team. (6:30 AM to 7:30 AM) [id number]: [id number] Critical care first hour
[2020-06-16] MEDS: Chlorhexidine 15 ML PO ×2 (09:14→22:25)
[2020-06-16] MEDS: Nystatin Powder 15gm Bottle 1 APPLIC TOPICAL ×2 (09:18→22:22)
[2020-06-16] MEDS: QUEtiapine 25 MG Tablet 50 MG GT ×2 (09:18→22:26)
[2020-06-16] MEDS: Menthol/Lanolin/Calamine/Znox 113 GM Tube 1 APPLIC TOPICAL ×2 (09:18→22:24)
--- NOTE | 2020-06-16 10:36 | PCM.NTREPORT ---
Nutrition Therapy Report - History Current diet / nutrition support order:: NPO - Anthropometric Measurements Height:: 5 ft 5 in Weight:: 74.1 kg Body Mass Index (BMI):: 27.1 - Relevant Labs Relevant Labs:: WBC 24.2 K/mm3 (4.4-11.0) H 06/13/20 03:55 RBC 3.87 M/mm3 (4.2-5.4) L 06/16/20 04:50 Hgb 10.7 g/dL (12.0-15.0) L 06/16/20 04:50 Hct 34.5 % (37-47) L 06/16/20 04:50 MCV 106.0 fL (81-99) H D 06/05/20 04:10 MCHC 31.0 g/dL (32-36) L 06/16/20 04:50 RDW Std Deviation 44.0 fl (35.1-43.9) H 06/15/20 03:35 Immature Gran % (Auto) 1.300 % (0.0-0.9) H 06/11/20 03:30 Neut % (Auto) 83.5 % (47-70) H 06/16/20 04:50 Lymph % (Auto) 12.3 % (19-41) L 06/16/20 04:50 Absolute Neuts (auto) 9.2 X10^3/uL (2.0-7.7) H 06/16/20 04:50 Absolute Lymphs (auto) 4.97 X10^3/uL (0.83-4.51) H 06/10/20 03:45 D-Dimer Quant (PE/DVT) 1.49 FEU/ug/m (0.27-0.49) H* 05/29/20 11:40 Sodium 135 mmol/L (136-145) L 05/29/20 05:00 Potassium 3.4 mmol/L (3.5-5.1) L 06/10/20 03:45 Chloride 108 mmol/L (98-107) H 06/15/20 03:35 Carbon Dioxide 33.0 mmol/L (21.0-32.0) H 06/07/20 05:00 Anion Gap 3 (5-15) L 06/06/20 04:40 BUN 34 mg/dL (7-18) H 06/16/20 04:50 Creatinine 1.12 mg/dL (0.55-1.02) H 06/16/20 04:50 Est GFR (MDRD) Non-Af 54 mL/min (>60) L 06/16/20 04:50 BUN/Creatinine Ratio 30.4 RATIO (10-20) H 06/16/20 04:50 Glucose 368 mg/dL (74-106) H 06/16/20 04:50 Hemoglobin A1c 10.8 % (3.8-5.6) H 05/26/20 03:48 Lactic Acid 2.8 mmol/L (0.4-1.9) H* 05/26/20 03:48 Calcium 8.3 mg/dL (8.5-10.1) L 06/15/20 03:35 Magnesium 1.4 mg/dL (1.6-2.6) L 06/03/20 04:30 Direct Bilirubin 0.35 mg/dL (0.00-0.30) H 05/29/20 05:00 AST 12 U/L (15-37) L 06/15/20 03:35 ALT 78 U/L (13-56) H 06/09/20 06:55 Alkaline Phosphatase 129 U/L (45-117) H 06/07/20 05:00 Total Creatine Kinase 22 U/L (26-192) L 06/13/20 03:55 Total Protein 6.0 g/dL (6.4-8.2) L 06/06/20 04:40 Albumin 2.5 g/dL (3.2-5.0) L 06/16/20 04:50 Globulin 4.5 g/dL (2.2-4.2) H 06/16/20 04:50 Albumin/Globulin Ratio 0.6 RATIO (0.9-2.4) L 06/16/20 04:50 Triglycerides 217 mg/dL (-199) H 06/13/20 03:55 HDL Cholesterol 22 mg/dL (40-) L 05/27/20 05:48 Procalcitonin 0.38 ng/mL (0.00-0.09) H 05/29/20 05:00 - Assessment Food / Nutrition-Related History:: Discussed in ICU rounds. PEG placed yesterday. Per rounds, okay to restart enteral nutrition via PEG today. Wt decrease of 0.3 kg noted since last review. Generalized non pitting edema noted. Discussed hyperglycemia in rounds- insulin to be adjusted as enteral nutrition resumed. - Nutrition Intervention Nutrition Prescription:: Estimated nutrition needs: 3219-5392 calories, 70-80 grams protein. - Food / Nutrient Delivery Interventions Summary of nutrition intervention:: Will resume enteral nutrition support via PEG. Per austin Whitehead to be more agressive w/ resuming of enteral nutrition. Nutrition support ordered as / adjusted to:: Vital AF 1.2 at goal rate of 60mL/hour w/ 75mL H2O flush every 4 hours to provide 1728 calories, 108 g protein, and 1617mL total fluid/day. Recommend start at 30mL/hour and increase by 10mL every 8 hours as tolerated until goal rate achieved. - MNT Monitoring Further MNT monitoring and evaluation required?: Yes MNT Follow-up in:: 3-5 days
--- NOTE | 2020-06-16 10:51 | CASEMGMT ---
ANNABELLE DUPREE NOTE: Call received from Carmen @ [facility] ([facility] She requests for recent vent settings, vs's, and labs be faxed to her. Same done at this time. She states once this is received, she will initiate process for getting pre-cert. Renea SHARP RN CM
[2020-06-16] MEDS: Vital AF 1.2 Cal Liquid 1,000 ML 60 ML GT (11:16)
[2020-06-16] MEDS: Vancomycin IV 1,000 MG/200 ML BAG 200 MG IV ×2 (11:17→22:21)
[2020-06-16 11:26] LABS: Bedside Glucose 270 mg/dL (70-110)
--- NOTE | 2020-06-16 12:48 | PN_ITS ---
Patient Problems: Active and Suspected Problems (This Medical Record has been edited. Action required.) Pneumonia due to COVID-19 virus (Acute) Respiratory insufficiency (Acute) SARS (severe acute respiratory syndrome) (Acute) Unable to eat (Acute) Subjective: Patient seen and examined. She has had PEG tube placed and also has a trach in place. She was lying quietly watching TV. He reports that she had no complaints. Patient has however had difficulty being weaned off of sedation as well as fentanyl. She gets very agitated. She also remains on Levophed. Vitals/I&O's: Vital Signs Temp Pulse Resp BP Pulse Ox 97.9 F 85 16 104/46 L 100 06/16/20 09:30 06/16/20 11:54 06/16/20 11:30 06/16/20 11:30 06/16/20 11:00 Oxygen Flow Rate (L/min) 6 Oxygen Delivery Method Mechanical Ventilator Weight: 163 lb 5.8 oz Body Mass Index (BMI) 27.1 Finger Stick Blood Glucose 377 Intake and Output for Last 24 Hours 06/14/20 06/15/20 06/16/20 23:59 23:59 23:59 Intake Total 2790.56 / 2826.56 1258.58 / 1284.86 488.60 / 488.60 Output Total 2145 / 2145 1170 / 1920 1150 / 1150 Balance 645.56 / 681.56 88.58 / -635.14 -661.40 / -661.40 General: Alert, Cooperative, No apparent distress, - - tracheostomy in place, sedated, RASS score is 0 HEENT: Atraumatic, PERRLA, EOMI, Normocephalic; tracheostomy in place Oral: Dry Mucosa Neck: Supple, No JVD, Negative Carotid Bruits Lungs: Clear to auscultation, Normal air movement, - - trach in place, connected to vent via trach. Cardiovascular: Regular rate, Regular Rhythm, Normal S1, Normal S2, No murmurs Abdomen: Bowel Sounds Present, Soft, Non Tender, Non-Distended, No Hepato- splenomegaly, PEG tube in place Extremities: No clubbing, No cyanosis, No edema, Capillary Refill Less than 3 Seconds Skin: No rashes, No breakdown Musculoskeletal: No Tenderness to Palpation of Joints or Extremities Lymphatic: No Cervical, Supraclavicular, or Inguinal Adenopathy Neurological: Cranial nerves II-XII grossly intact, Neuro grossly intact, - - intubated via tracheostomy, sedated, RASS score is 0 Psych/Mental Status: Normal Affect Microbiology Past 72 Hours 06/13/20 06:45 Sputum, Tracheal Aspirate Gram Stain - Final 06/13/20 06:45 Sputum, Tracheal Aspirate Respiratory Culture - Final Haemophilus influenzae Meth. resistant Staph. aureus 06/10/20 12:30 Blood Culture (Wb) - Left Wrist Blood Culture - Final No growth in 5 days. 06/10/20 06:55 Blood Culture (Wb) - Left Forearm Blood Culture - Final No growth in 5 days. Laboratory Results 06/15/20 12:28: POC Glucose 287 H 06/15/20 18:30: POC Glucose 301 H 06/15/20 20:10: Random Vancomycin 11.1 06/15/20 23:54: POC Glucose 387 H 06/16/20 04:50: WBC 11.0, RBC 3.87 L, Hgb 10.7 L, Hct 34.5 L, MCV 89.1, MCH 27.6, MCHC 31.0 L, RDW Std Deviation 43.8, RDW Coeff of Osorio 13.6, Plt Count 263, MPV 11.1, Immature Gran % (Auto) 0.400, Neut % (Auto) 83.5 H, Lymph % (Auto) 12.3 L, Garvin % (Auto) 3.4, Eos % (Auto) 0.0, Baso % (Auto) 0.4, Absolute Neuts (auto) 9.2 H, Absolute Lymphs (auto) 1.35, Nucleated RBC % 0 06/16/20 04:50: Sodium 142, Potassium 3.5, Chloride 107, Carbon Dioxide 26.0, Anion Gap 9, BUN 34 H, Creatinine 1.12 H, Estim Creat Clear Calc 51.67, Est GFR (MDRD) Af Amer 65, Est GFR (MDRD) Non-Af 54 L, BUN/Creatinine Ratio 30.4 H, Glucose 368 H, Calcium 8.7, Total Bilirubin 0.60, AST 21, ALT 38, Alkaline Phosphatase 86, Total Protein 7.0, Albumin 2.5 L, Globulin 4.5 H, Albumin/Globulin Ratio 0.6 L 06/16/20 06:36: POC Glucose 353 H 06/16/20 11:12: POC Glucose 270 H Current Medications Acetaminophen (Acetaminophen 650 Mg/20 Ml Udc) 650 mg GT Q6H PRN PRN PRN Reason: TEMP > 100.5 F Albuterol Sulfate (Albuterol Ih 8.5 Gm (Proair) Inhaler (200 Puffs)) 2 puff INHALATION Q4H PRN PRN PRN Reason: SOB/WHEEZING Albuterol Sulfate (Albuterol 2.5 Mg/3 Ml Vial.Neb.) 2.5 mg INHALATION Q2H PRN PRN PRN Reason: dyspnea, wheezing Last Admin: 05/31/20 07:45 Dose: 2.5 mg Documented by: Calamine/Phenol (Menthol/Lanolin/Calamine/Znox 113 Gm Tube) 1 applic TOPICAL BID [facility]; Protocol Last Admin: 06/16/20 09:18 Dose: 1 applicatio Documented by: Chlorhexidine Gluconate (Chlorhexidine 15 Ml) 15 ml PO BID [facility] Last Admin: 06/16/20 09:14 Dose: 15 ml Documented by: Dextrose (Dextrose 50%-Water 25 Gm/50 Ml Disp.Syrin) 0 gm IV X1 PRN; Protocol PRN Reason: Hypoglycemia Enoxaparin Sodium (Enoxaparin 80 Mg/0.8 Ml Syringe) 80 mg SC Q12@0600,1800 [facility] Last Admin: 06/15/20 05:02 Dose: Not Given Documented by: Glucagon (Glucagon 1 Mg/Ml Syringe) 1 mg IM .X1 PRN PRN Reason: Hypoglycemia Hydrocortisone Sodium Succinate (Hydrocortisone Sod Succinate 100 Mg/2 Ml Vial) 100 mg IV Q8 [facility] Last Admin: 06/16/20 06:37 Dose: 100 mg Documented by: Sodium Chloride () 250 mls @ 15 mls/hr IV .[id number] PRN PRN Reason: Saline Flush Last Infusion: 06/11/20 20:06 Dose: Infused Documented by: Sodium Chloride () 250 mls @ 15 mls/hr IV .[id number] PRN PRN Reason: Additional IVPB Infusion Norepinephrine Bitartrate 8 mg (/ Sodium Chloride) 250 mls @ 9.375 mls/hr CONT INF .[id number] [facility]; Protocol Last Titration: 06/16/20 11:30 Dose: 5 mcg/min, 9.4 mls/hr Documented by: Vancomycin IV Pharmacy to Dose (1 ea/ Sodium Chloride) 500 mls @ 250 mls/hr IV X1 PRN; Protocol PRN Reason: Rx to Dose Stop: 06/16/20 23:55 Dexmedetomidine HCl 1,000 mcg/ (Sodium Chloride) 250 mls @ 9.263 mls/hr CONT INF .Q27H [facility]; Protocol Last Titration: 06/16/20 11:30 Dose: 0 mcg/kg/hr, 0 mls/hr Documented by: Fentanyl Citrate 1,000 mcg/ (Sodium Chloride) 100 mls @ 5 mls/hr CONT INF .Q20H [facility]; Protocol Last Titration: 06/16/20 11:30 Dose: 0 mcg/hr, 0 mls/hr Documented by: Piperacillin Sod/Tazobactam (Sod 3.375 gm/ Sodium Chloride) 50 mls @ 12.5 mls/hr IV Q8 [facility] Stop: 06/19/20 22:01 Last Infusion: 06/16/20 11:00 Dose: Infused Documented by: Vancomycin HCl (Vancomycin) 1,000 mg in 200 mls @ 200 mls/hr IV Q12H [facility] Last Admin: 06/16/20 11:17 Dose: 200 mls/hr Documented by: Enteral Nutritional Formula (Vital Af 1.2 Rick Liquid) 1,000 mls @ 60 mls/hr GT .[id number] [facility] Last Admin: 06/16/20 11:16 Dose: 60 mls/hr Documented by: Insulin Glargine (Insulin Glargine 100 Units/Ml Pen) 10 units SC BID [facility] Last Admin: 06/16/20 09:16 Dose: 10 u Documented by: Insulin Human Lispro (Insulin Lispro 100 Unit/Ml Insuln.Pen) 0 unit SC Q6H [facility]; Protocol Last Admin: 06/16/20 11:13 Dose: 6 u Documented by: Lansoprazole (Lansoprazole 15 Mg Capsule.Dr) 30 mg NG BID [facility] Last Admin: 06/16/20 09:19 Dose: Not Given Documented by: Melatonin (Melatonin 3 Mg Tablet) 3 mg GT QHS PRN PRN PRN Reason: INSOMNIA Nystatin (Nystatin Powder 15gm Bottle) 1 applic TOPICAL BID [facility]; Protocol Last Admin: 06/16/20 09:18 Dose: 1 applic Documented by: Ondansetron HCl (Ondansetron 4 Mg/2 Ml Vial) 4 mg IV Q8H PRN PRN PRN Reason: NAUSEA/VOMITING Last Admin: 06/15/20 14:13 Dose: 4 mg Documented by: Oxycodone HCl (Oxycodone 5 Mg Tablet) 5 - 10 mg PO Q6H PRN PRN PRN Reason: Pain Score 6-10 Last Admin: 06/16/20 06:38 Dose: 5 mg Documented by: Polyethylene Glycol (Polyethylene Glycol 3350 17 Gm Packet) 17 gm GT DAILY PRN PRN Reason: Constipation Potassium Chloride (Potassium Chl Soln 20 Meq/15 Ml Udc) 20 meq GT BID@1000,1700 [facility] Last Admin: 06/16/20 09:18 Dose: 20 meq Documented by: Quetiapine Fumarate (Quetiapine 25 Mg Tablet) 50 mg GT BID [facility] Last Admin: 06/16/20 09:18 Dose: 50 mg Documented by: Sodium Chloride (0.9% Saline Lock 10 Ml Syringe) 10 - 40 ml IV UD PRN PRN Reason: SALINE FLUSH Last Admin: 06/15/20 15:26 Dose: 20 ml Documented by: STROKE Vital Signs/Narrative: Vital Signs Temp Pulse Resp BP Pulse Ox 06/16/20 11:54 85 06/16/20 11:30 68 16 104/46 L 06/16/20 11:15 60 16 117/48 L 06/16/20 11:00 76 16 108/50 L 100 06/16/20 10:00 82 17 88/46 L 100 06/16/20 09:45 87 18 100 06/16/20 09:30 97.9 F 78 18 100/22 L 97 06/16/20 09:15 85 16 85/45 L 93 06/16/20 08:55 74 17 136/61 H 98 Medical Necessity - Tobacco Use Smoking Status: Former smoker Assessment/Plan All Active Problems (This Medical Record has been edited. Action required.) Pneumonia due to COVID-19 virus (Acute) Respiratory insufficiency (Acute) SARS (severe acute respiratory syndrome) (Acute) Unable to eat (Acute) #Acute hypoxic respiratory failure due to COVID 19 infection * s/p trachestomy and PEG tube placement. * fever has resolved. * on IV vancomycin and zosyn * still in cumulative positive balance by 8.32L * on IV lasix 80mg bid. * critical care on board. still on sedation with precedex and fentanyl. Having difficulty being weaned off the vent. * #Septic shock due to covid pneumonia * remains on levophed. * completed a course of decadron and remdesivir * on IV vancomycin and zosyn' * respiratory culture grew MRSA and H Influenzaae * blood cultures negative * #Newly diagnosed type 2 diabetes mellitus * On admission, A1c was 10.8 though she was not a known diabetic. * Currently on Lantus 10 units twice daily with insulin sliding scale. Accu- Cheks AC at bedtime. #Hyponatremia: Resolved. #Transaminitis: resolved. #GERD: On famotidine #Hypokalemia: Resolved. DVT prophylaxis: Lovenox 80 mg every 12 hours GI prophylaxis: On famotidine. Inpatient E&M: [id number] [facility] L3
--- NOTE | 2020-06-16 14:37 | PCM.RX.CS ---
Consult Pharmacy has been consulted to manage selected antiobiotic: Vancomycin Type of Consult: Follow-up Prior Doses of Antibiotics Received/Current Regimen: the patient had been on 2000mg IV q12h but this has been held since the evening of 06/14 due to a high trough value of 26.3 Labs: Sodium 142 mmol/L (136-145) 06/16/20 04:50 Potassium 3.5 mmol/L (3.5-5.1) 06/16/20 04:50 Chloride 107 mmol/L (98-107) 06/16/20 04:50 Carbon Dioxide 26.0 mmol/L (21.0-32.0) 06/16/20 04:50 Anion Gap 9 (5-15) 06/16/20 04:50 BUN 34 mg/dL (7-18) H 06/16/20 04:50 Creatinine 1.12 mg/dL (0.55-1.02) H 06/16/20 04:50 Est GFR (MDRD) Af Amer 65 mL/min (>60) 06/16/20 04:50 Est GFR (MDRD) Non-Af 54 mL/min (>60) L 06/16/20 04:50 BUN/Creatinine Ratio 30.4 RATIO (10-20) H 06/16/20 04:50 Glucose 368 mg/dL (74-106) H 06/16/20 04:50 Vancomycin Trough 26.3 ug/mL (5.0-15.0) H 06/14/20 18:30 Random Vancomycin 11.1 ug/mL (0.0-15.0) 06/15/20 20:10 Microbiology: Microbiology 06/13/20 06:45 Sputum, Tracheal Aspirate Gram Stain - Final 06/13/20 06:45 Sputum, Tracheal Aspirate Respiratory Culture - Final Haemophilus influenzae Meth. resistant Staph. aureus 06/10/20 12:30 Blood Culture (Wb) - Left Wrist Blood Culture - Final No growth in 5 days. 06/10/20 06:55 Blood Culture (Wb) - Left Forearm Blood Culture - Final No growth in 5 days. 06/12/20 08:30 Stool C. difficile DNA Amplification - Final 06/10/20 11:30 Sputum, Induced/Lukens Gram Stain - Final 06/10/20 11:30 Sputum, Induced/Lukens Respiratory Culture - Final Meth. resistant Staph. aureus 06/10/20 07:00 Urine Catheter - Cuellar Urine Culture - Final Yeast, not Rand albicans 06/07/20 10:40 Sputum, Induced/Lukens Gram Stain - Final 06/07/20 10:40 Sputum, Induced/Lukens Respiratory Culture - Final Meth. resistant Staph. aureus 06/01/20 06:40 Sputum, Induced/Lukens Gram Stain - Final 06/01/20 06:40 Sputum, Induced/Lukens Respiratory Culture - Final Meth. resistant Staph. aureus 05/28/20 21:15 Sputum, Induced/Lukens Gram Stain - Final 05/28/20 21:15 Sputum, Induced/Lukens Respiratory Culture - Final 05/29/20 11:00 Urine Catheter - Cuellar Urine Culture - Final Presumptive E. coli 05/26/20 04:05 Blood Culture (Wb) - Right Hand Blood Culture - Final No growth in 5 days. 05/26/20 03:48 Blood Culture (Wb) - Anticubital Right Blood Culture - Final No growth in 5 days. Weight used for dosin.1 kg Estimated Creatinine Clearance: 52 ml/min Goal Trough: 15-20 mcg/mL Pharmacy Plan for Drug Dosing: The vancomycin random level drawn last night came back as 11.1. This was back below 20 so, per policy, dosing could be restarted again and that was done this morning at the decreased dose of 1000mg IV q12h. Will recheck a trough again before the 4th new dose tomorrow night. Pharmacy Service will continue to monitor and adjust dosing as required. Follow-Up Labs: Trough Vancomycin Labs to be done on [date and time ordered]: 06/17/20 22:30
[2020-06-16 17:00] LABS: Bedside Glucose 288 mg/dL (70-110)
[2020-06-16] MEDS: Enoxaparin 80 MG/0.8 ML Syringe SC (17:09)
[2020-06-16] MEDS: Lansoprazole 15 MG Capsule.DR 30 MG NG (22:26)
[2020-06-16] MEDS: Ondansetron 4 MG/2 ML Vial IV (23:06)
[2020-06-16 23:45] LABS: Bedside Glucose 409 mg/dL (70-110)
[2020-06-17] VITALS (33 sets, daily range): BP systolic 102–162; BP diastolic 47–84; PULSE 70–121; RESP 14–28; TEMP 36.7–37.2; O2SAT 93–100
[2020-06-17 04:32] LABS: Absolute Lymphocyte Count 0.85 X10^3/uL (0.83-4.51); Absolute Neutrophil Count 3.3 X10^3/uL (2.0-7.7); Basophil# 0.02 X10^3/uL; Basophil% 0.4 % (0-1); Lymphocyte # 0.85 X10^3/ul (4.0); Lymphocyte % 18.9 % (19-41); Mean Corp Hgb Conc 31.3 g/dL (32-36); Mean Corpuscular Hgb 27.9 pg (27.0-32.0); Mean Corpuscular Volume 89.1 fL (81-99); Mean Platelet Vol. 11.3 fl (6.2-12.0); Monocyte# 0.27 X10^3/uL; NRBC Flagged by Analyzer 0 % (0-5); Neutrophil # 3.33 X10^3/uL (2.7-7.7); Neutrophil % 74.3 % (47-70); Platelet Count 174 K/mm3 (150-450); RBC Distribution Width CV 13.4 % (11.6-14.6); RBC Distribution Width SD 43.4 fl (35.1-43.9); Red Blood Count 3.59 M/mm3 (4.2-5.4); White Blood Count 4.5 K/mm3 (4.4-11.0)
[2020-06-17 04:49] LABS: ALB/GLOB Ratio 0.6 RATIO (0.9-2.4); AST(SGOT) 20 U/L (15-37); Alanine Aminotransfer ALT/SGPT 40 U/L (13-56); Albumin, Serum 2.4 g/dL (3.2-5.0); Alkaline Phosphatase 78 U/L (45-117); Anion Gap 6 (5-15); BUN 37 mg/dL (7-18); BUN/Creat Ratio 38.1 RATIO (10-20); Calcium,Total 8.5 mg/dL (8.5-10.1); Chloride 109 mmol/L (98-107); Creatinine, Serum 0.97 mg/dL (0.55-1.02); EST Glomerular Filtration Rate 64 mL/min (>60); Est Glom Filt Rate - Afr Amer 77 mL/min (>60); Estimated Creatinine Clearance 59.66 ml/min; Globulin 4.1 g/dL (2.2-4.2); Glucose 385 mg/dL (74-106); Potassium 3.2 mmol/L (3.5-5.1); Protein, Total 6.5 g/dL (6.4-8.2); Sodium Level 142 mmol/L (136-145)
[2020-06-17] MEDS: Insulin Lispro 100 UNIT/ML INSULN.PEN SC ×4 (05:44→23:13)
[2020-06-17] MEDS: Hydrocortisone Sod Succinate 100 MG/2 ML Vial IV ×3 (05:45→21:13)
[2020-06-17] MEDS: Enoxaparin 80 MG/0.8 ML Syringe SC (05:45)
[2020-06-17 05:56] LABS: Bedside Glucose 355 mg/dL (70-110)
--- NOTE | 2020-06-17 07:28 | PN_ITS ---
Subjective: Patient has done well overnight. Patient was able to come off of Levophed at approximately 2 AM. Patient did have a significant plugging incident leading to desaturations, but was able to be evacuated with inline suctioning. Patient did not become bradycardic during the event, but did have respiratory distress. General: Alert, Oriented x3, Cooperative, No apparent distress, - - Good vent synchrony. HEENT: Atraumatic, PERRLA, EOMI, Normocephalic, - - Trach is clean, dry and intact Oral: Moist Mucosa, No Gingival or Mucosal Lesions/ Ulcerations Neck: Supple, No JVD, No Nodes, Trachea Midline Lungs: No rhonchi, No wheeze, No rales, Diminished, - - Symmetric expansion. No dullness to percussion. Cardiovascular: Regular rate, Regular Rhythm, Normal S1, Normal S2, No murmurs, No rub noted, No Gallop Abdomen: Bowel Sounds Present, Soft, Non Tender, Non-Distended, - - PEG is clean, dry and intact. Tolerating tube feeds. Extremities: No clubbing, No cyanosis, Edema - Trace lower extremity Skin: No rashes, No breakdown Musculoskeletal: No Tenderness to Palpation of Joints or Extremities Lymphatic: No Cervical, Supraclavicular, or Inguinal Adenopathy Neurological: Cranial nerves II-XII grossly intact, Neuro grossly intact, Motor Exam 5/5 strength throughout Psych/Mental Status: Alert and oriented to time, place, person, mood and affect Vital Signs Temp Pulse Resp BP Pulse Ox 37.1 C 82 18 120/50 L 95 06/17/20 04:00 06/17/20 06:00 06/17/20 06:00 06/17/20 06:00 06/17/20 06:00 Oxygen Flow Rate (L/min) 6 Oxygen Delivery Method Mechanical Ventilator Weight: 74.3 kg Body Mass Index (BMI) 27.1 Finger Stick Blood Glucose 377 Intake and Output for Last 24 Hours 06/15/20 06/16/20 06/17/20 23:59 23:59 23:59 Intake Total 1258.58 / 1284.86 1796.66 / 1872.14 605.29 / 605.29 Output Total 1170 / 1920 2049 / 2049 100 / 100 Balance 88.58 / -635.14 -253.34 / -177.86 505.29 / 505.29 Labs (Last 48 Hours) 06/15/20 06/15/20 06/15/20 12:28 18:30 20:10 WBC RBC Hgb Hct MCV MCH MCHC RDW Std Deviation RDW Coeff of Osorio Plt Count MPV Immature Gran % (Auto) Neut % (Auto) Lymph % (Auto) [place] % (Auto) Eos % (Auto) Baso % (Auto) Absolute Neuts (auto) Absolute Lymphs (auto) Nucleated RBC % Sodium Potassium Chloride Carbon Dioxide Anion Gap BUN Creatinine Estim Creat Clear Calc Est GFR (MDRD) Af Amer Est GFR (MDRD) Non-Af BUN/Creatinine Ratio Glucose Calcium Total Bilirubin AST ALT Alkaline Phosphatase Total Protein Albumin Globulin Albumin/Globulin Ratio Random Vancomycin 11.1 POC Glucose 287 H 301 H 06/15/20 06/16/20 06/16/20 23:54 04:50 04:50 WBC 11.0 RBC 3.87 L Hgb 10.7 L Hct 34.5 L MCV 89.1 MCH 27.6 MCHC 31.0 L RDW Std Deviation 43.8 RDW Coeff of Osroio 13.6 Plt Count 263 MPV 11.1 Immature Gran % (Auto) 0.400 Neut % (Auto) 83.5 H Lymph % (Auto) 12.[address] [place] % (Auto) 3.4 Eos % (Auto) 0.0 Baso % (Auto) 0.4 Absolute Neuts (auto) 9.2 H Absolute Lymphs (auto) 1.35 Nucleated RBC % 0 Sodium 142 Potassium 3.5 Chloride 107 Carbon Dioxide 26.0 Anion Gap 9 BUN 34 H Creatinine 1.12 H Estim Creat Clear Calc 51.67 Est GFR (MDRD) Af Amer 65 Est GFR (MDRD) Non-Af 54 L BUN/Creatinine Ratio 30.4 H Glucose 368 H Calcium 8.7 Total Bilirubin 0.60 AST 21 ALT 38 Alkaline Phosphatase 86 Total Protein 7.0 Albumin 2.5 L Globulin 4.5 H Albumin/Globulin Ratio 0.6 L Random Vancomycin POC Glucose 387 H 06/16/20 06/16/20 06/16/20 06:36 11:12 16:54 WBC RBC Hgb Hct MCV MCH MCHC RDW Std Deviation RDW Coeff of Osorio Plt Count MPV Immature Gran % (Auto) Neut % (Auto) Lymph % (Auto) [place] % (Auto) Eos % (Auto) Baso % (Auto) Absolute Neuts (auto) Absolute Lymphs (auto) Nucleated RBC % Sodium Potassium Chloride Carbon Dioxide Anion Gap BUN Creatinine Estim Creat Clear Calc Est GFR (MDRD) Af Amer Est GFR (MDRD) Non-Af BUN/Creatinine Ratio Glucose Calcium Total Bilirubin AST ALT Alkaline Phosphatase Total Protein Albumin Globulin Albumin/Globulin Ratio Random Vancomycin POC Glucose 353 H 270 H 288 H 06/16/20 06/17/20 06/17/20 23:35 04:10 04:10 WBC 4.5 RBC 3.59 L Hgb 10.0 L Hct 32.0 L MCV 89.1 MCH 27.9 MCHC 31.3 L RDW Std Deviation 43.4 RDW Coeff of Osorio 13.4 Plt Count 174 MPV 11.3 Immature Gran % (Auto) 0.400 Neut % (Auto) 74.3 H Lymph % (Auto) 18.[address] [place] % (Auto) 6.0 Eos % (Auto) 0.0 Baso % (Auto) 0.4 Absolute Neuts (auto) 3.3 Absolute Lymphs (auto) 0.85 Nucleated RBC % 0 Sodium 142 Potassium 3.2 L Chloride 109 H Carbon Dioxide 27.0 Anion Gap 6 BUN 37 H Creatinine 0.97 Estim Creat Clear Calc 59.66 Est GFR (MDRD) Af Amer 77 Est GFR (MDRD) Non-Af 64 BUN/Creatinine Ratio 38.1 H Glucose 385 H Calcium 8.5 Total Bilirubin 0.40 AST 20 ALT 40 Alkaline Phosphatase 78 Total Protein 6.5 Albumin 2.4 L Globulin 4.1 Albumin/Globulin Ratio 0.6 L Random Vancomycin POC Glucose 409 H 06/17/20 05:43 WBC RBC Hgb Hct MCV MCH MCHC RDW Std Deviation RDW Coeff of Osorio Plt Count MPV Immature Gran % (Auto) Neut % (Auto) Lymph % (Auto) [place] % (Auto) Eos % (Auto) Baso % (Auto) Absolute Neuts (auto) Absolute Lymphs (auto) Nucleated RBC % Sodium Potassium Chloride Carbon Dioxide Anion Gap BUN Creatinine Estim Creat Clear Calc Est GFR (MDRD) Af Amer Est GFR (MDRD) Non-Af BUN/Creatinine Ratio Glucose Calcium Total Bilirubin AST ALT Alkaline Phosphatase Total Protein Albumin Globulin Albumin/Globulin Ratio Random Vancomycin POC Glucose 355 H Microbiology 06/13/20 06:45 Sputum, Tracheal Aspirate Gram Stain - Final 06/13/20 06:45 Sputum, Tracheal Aspirate Respiratory Culture - Final Haemophilus influenzae Meth. resistant Staph. aureus 06/10/20 12:30 Blood Culture (Wb) - Left Wrist Blood Culture - Final No growth in 5 days. 06/10/20 06:55 Blood Culture (Wb) - Left Forearm Blood Culture - Final No growth in 5 days. Medical Necessity - Tobacco Use Smoking Status: Former smoker Assessment/Plan All Active Problems (This Medical Record has been edited. Action required.) Pneumonia due to COVID-19 virus (Acute) Respiratory insufficiency (Acute) SARS (severe acute respiratory syndrome) (Acute) Unable to eat (Acute) RECOMMENDATIONS: 1. Antibiotics per infectious disease 2. Continue vent at current settings 3. Consider transition to 10 a inhibitor now that procedures completed 4. Continue diuretic regimen as tolerated by hemodynamics and renal function . 5. Wean stress dose steroids tomorrow 6. Continue scheduled Seroquel. Wean off fentanyl and Precedex drips using PEG tube if necessary 7. Continue tube feeds today 8. Anticipate discharge to LTAC later this week IMPRESSIONS: 1. Acute hypoxemic respiratory failure secondary to COVID-19 pneumonia The patient continued to decompensate from a respiratory perspective following admission, eventually requiring ICU transfer and subsequent intubation on May 28. The patient has completed a treatment course of remdesivir and Decadron. The patient, to date, has failed 2 attempts at extubation. During her last attempt on 06/12, there was concern for an acute aspiration event. Infectious disease is following. Defer antibiotics to them. Patient does have a positive tracheal aspirate. This is likely secondary to aspiration. Patient on of advanced respiratory precautions. Patient still having issues with plugging and would benefit from long-term acute care. Patient has an excellent decannulation prognosis in my perspective 2. Septic shock/relative adrenal insufficiency Continue current supportive measures including vasopressor support to maintain a mean arterial pressure at or above 65 mmHg. Continue antimicrobials per ID recommendations. She continues to require significant pressors despite removal of propofol. Clinical suspicion for an element of adrenal insufficiency given protracted courses of Decadron. Patient will be placed on stress dose steroids. Patient off of all of her drips at this point. If patient continues to have an adequate blood pressure 24 hours, anticipate beginning weaning of stress dose steroids over 5 to 6 days 3. Poorly controlled diabetes mellitus Reinitiate Lantus and sliding scale insulin coverage. Titrate up Lantus 4. ICU delirium Resolved. Continue Seroquel as ordered. 5. Obesity/GERD Complicates care, management, recovery and prognosis. Aggressive physical therapy is warranted. Inpatient E&M: [id number] [facility] Hosp L3
[2020-06-17] MEDS: Menthol/Lanolin/Calamine/Znox 113 GM Tube 1 APPLIC TOPICAL ×2 (08:29→21:03)
[2020-06-17] MEDS: Chlorhexidine 15 ML PO ×2 (08:29→21:02)
[2020-06-17] MEDS: Nystatin Powder 15gm Bottle 1 APPLIC TOPICAL ×2 (08:30→21:13)
[2020-06-17] MEDS: Lansoprazole 15 MG Capsule.DR 30 MG NG ×2 (08:35→21:10)
[2020-06-17] MEDS: QUEtiapine 25 MG Tablet 50 MG GT ×2 (08:35→21:10)
[2020-06-17 08:55] LABS: Bedside Glucose 347 mg/dL (70-110)
--- NOTE | 2020-06-17 09:57 | PN.ID_ITS ---
Patient Problems: Active and Suspected Problems (This Medical Record has been edited. Action required.) Pneumonia due to COVID-19 virus (Acute) Respiratory insufficiency (Acute) SARS (severe acute respiratory syndrome) (Acute) Unable to eat (Acute) Subjective: Awake, off pressors, feeling ok - Physical Exam Vitals/I&O's: Vital Signs Temp Pulse Resp BP Pulse Ox 98.7 F 82 18 120/50 L 95 06/17/20 04:00 06/17/20 06:00 06/17/20 06:00 06/17/20 06:00 06/17/20 06:00 Oxygen Flow Rate (L/min) 6 Oxygen Delivery Method Mechanical Ventilator Weight: 74.3 kg Body Mass Index (BMI) 27.1 Finger Stick Blood Glucose 377 Intake and Output for Last 24 Hours 06/15/20 06/16/20 06/17/20 23:59 23:59 23:59 Intake Total 1258.58 / 1284.86 1796.66 / 1872.14 605.29 / 605.29 Output Total 1170 / 1920 2049 100 / 100 Balance 88.58 / -635.14 -253.34 / -177.86 505.29 / 505.29 General: Alert, Cooperative, No apparent distress Lungs: Clear to auscultation, Diminished Cardiovascular: Regular rate, Regular Rhythm Abdomen: Soft, Non Tender, Non-Distended Skin: No rashes Microbiology Past 72 Hours 06/13/20 06:45 Sputum, Tracheal Aspirate Gram Stain - Final 06/13/20 06:45 Sputum, Tracheal Aspirate Respiratory Culture - Final Haemophilus influenzae Meth. resistant Staph. aureus 06/10/20 12:30 Blood Culture (Wb) - Left Wrist Blood Culture - Final No growth in 5 days. 06/10/20 06:55 Blood Culture (Wb) - Left Forearm Blood Culture - Final No growth in 5 days. Laboratory Results 06/16/20 11:12: POC Glucose 270 H 06/16/20 16:54: POC Glucose 288 H 06/16/20 23:35: POC Glucose 409 H 06/17/20 04:10: WBC 4.5, RBC 3.59 L, Hgb 10.0 L, Hct 32.0 L, MCV 89.1, MCH 27.9, MCHC 31.3 L, RDW Std Deviation 43.4, RDW Coeff of Osorio 13.4, Plt Count 174, MPV 11.3, Immature Gran % (Auto) 0.400, Neut % (Auto) 74.3 H, Lymph % (Auto) 18.9 L, [place] % (Auto) 6.0, Eos % (Auto) 0.0, Baso % (Auto) 0.4, Absolute Neuts (auto) 3.3, Absolute Lymphs (auto) 0.85, Nucleated RBC % 0 06/17/20 04:10: Sodium 142, Potassium 3.2 L, Chloride 109 H, Carbon Dioxide 27.0, Anion Gap 6, BUN 37 H, Creatinine 0.97, Estim Creat Clear Calc 59.66, Est GFR (MDRD) Af Amer 77, Est GFR (MDRD) Non-Af 64, BUN/Creatinine Ratio 38.1 H, Glucose 385 H, Calcium 8.5, Total Bilirubin 0.40, AST 20, ALT 40, Alkaline Phosphatase 78, Total Protein 6.5, Albumin 2.4 L, Globulin 4.1, Albumin/Globulin Ratio 0.6 L 06/17/20 05:43: POC Glucose 355 H 06/17/20 08:36: POC Glucose 347 H Current Medications Acetaminophen (Acetaminophen 650 Mg/20 Ml Udc) 650 mg GT Q6H PRN PRN PRN Reason: TEMP > 100.5 F Albuterol Sulfate (Albuterol Ih 8.5 Gm (Proair) Inhaler (200 Puffs)) 2 puff INHALATION Q4H PRN PRN PRN Reason: SOB/WHEEZING Albuterol Sulfate (Albuterol 2.5 Mg/3 Ml Vial.Neb.) 2.5 mg INHALATION Q2H PRN PRN PRN Reason: dyspnea, wheezing Last Admin: 05/31/20 07:45 Dose: 2.5 mg Documented by: Calamine/Phenol (Menthol/Lanolin/Calamine/Znox 113 Gm Tube) 1 applic TOPICAL BID OLLIE; Protocol Last Admin: 06/17/20 08:29 Dose: 1 applicatio Documented by: Chlorhexidine Gluconate (Chlorhexidine 15 Ml) 15 ml PO BID OLLIE Last Admin: 06/17/20 08:29 Dose: 15 ml Documented by: Dextrose (Dextrose 50%-Water 25 Gm/50 Ml Disp.Syrin) 0 gm IV X1 PRN; Protocol PRN Reason: Hypoglycemia Enoxaparin Sodium (Enoxaparin 80 Mg/0.8 Ml Syringe) 80 mg SC Q12@0600,1800 [facility] Last Admin: 06/17/20 05:45 Dose: 80 mg Documented by: Glucagon (Glucagon 1 Mg/Ml Syringe) 1 mg IM .X1 PRN PRN Reason: Hypoglycemia Hydrocortisone Sodium Succinate (Hydrocortisone Sod Succinate 100 Mg/2 Ml Vial) 100 mg IV Q8 [facility] Last Admin: 06/17/20 05:45 Dose: 100 mg Documented by: Sodium Chloride () 250 mls @ 15 mls/hr IV .[id number] PRN PRN Reason: Saline Flush Last Infusion: 06/11/20 20:06 Dose: Infused Documented by: Sodium Chloride () 250 mls @ 15 mls/hr IV .[id number] PRN PRN Reason: Additional IVPB Infusion Vancomycin IV Pharmacy to Dose (1 ea/ Sodium Chloride) 500 mls @ 250 mls/hr IV X1 PRN; Protocol PRN Reason: Rx to Dose Piperacillin Sod/Tazobactam (Sod 3.375 gm/ Sodium Chloride) 50 mls @ 12.5 mls/hr IV Q8 [facility] Stop: 06/19/20 22:01 Last Admin: 06/17/20 05:51 Dose: 12.5 mls/hr Documented by: Vancomycin HCl (Vancomycin) 1,000 mg in 200 mls @ 200 mls/hr IV Q12H [facility] Last Infusion: 06/16/20 23:21 Dose: Infused Documented by: Enteral Nutritional Formula (Vital Af 1.2 Rick Liquid) 1,000 mls @ 60 mls/hr GT .[id number] [facility] Last Admin: 06/17/20 03:09 Dose: Not Given Documented by: Insulin Glargine (Insulin Glargine 100 Units/Ml Pen) 25 units SC BID [facility] Last Admin: 06/17/20 08:42 Dose: 25 u Documented by: Insulin Human Lispro (Insulin Lispro 100 Unit/Ml Insuln.Pen) 0 unit SC Q6H [facility]; Protocol Last Admin: 06/17/20 05:44 Dose: 8 u Documented by: Lansoprazole (Lansoprazole 15 Mg Capsule.Dr) 30 mg NG BID [facility] Last Admin: 06/17/20 08:35 Dose: 30 mg Documented by: Melatonin (Melatonin 3 Mg Tablet) 3 mg GT QHS PRN PRN PRN Reason: INSOMNIA Nystatin (Nystatin Powder 15gm Bottle) 1 applic TOPICAL BID [facility]; Protocol Last Admin: 06/17/20 08:30 Dose: 1 applic Documented by: Ondansetron HCl (Ondansetron 4 Mg/2 Ml Vial) 4 mg IV Q8H PRN PRN PRN Reason: NAUSEA/VOMITING Last Admin: 06/16/20 23:06 Dose: 4 mg Documented by: Oxycodone HCl (Oxycodone 5 Mg Tablet) 5 - 10 mg PO Q6H PRN PRN PRN Reason: Pain Score 6-10 Last Admin: 06/16/20 14:31 Dose: 5 mg Documented by: Polyethylene Glycol (Polyethylene Glycol 3350 17 Gm Packet) 17 gm GT DAILY PRN PRN Reason: Constipation Potassium Chloride (Potassium Chl Soln 20 Meq/15 Ml Udc) 20 meq GT BID@1000 ,1700 [facility] Last Admin: 06/17/20 08:34 Dose: 20 meq Documented by: Quetiapine Fumarate (Quetiapine 25 Mg Tablet) 50 mg GT BID [facility] Last Admin: 06/17/20 08:35 Dose: 50 mg Documented by: Sodium Chloride (0.9% Saline Lock 10 Ml Syringe) 10 - 40 ml IV UD PRN PRN Reason: SALINE FLUSH Last Admin: 06/15/20 15:26 Dose: 20 ml Documented by: Medical Necessity - Tobacco Use Smoking Status: Former smoker Route of nutrition/ use of supplements: [] Nutritional Intake: [] IV Site: [] Cuellar Catheter: [] - Assessment/Plan Antibiotics: [] Assessment/Plan: [] Active and Suspected Problems (This Medical Record has been edited. Action required.) Pneumonia due to COVID-19 virus (Acute) Respiratory insufficiency (Acute) SARS (severe acute respiratory syndrome) (Acute) covid with hypoxia - sx start 05/19. Lactate over 2. D-dimer was 0.9, CT neg for PE, on lovenox 80mg bid. Off dex, completed remdesivir. Ucx with ecoli. Sputum with MRSA. 06/02 started vanc. Repeat sputum again with MRSA and haemophilus. On vanc/zosyn. Overall improved, trach in place. Will follow
--- NOTE | 2020-06-17 10:14 | PN_ITS ---
Patient Problems: Active and Suspected Problems (This Medical Record has been edited. Action required.) Pneumonia due to COVID-19 virus (Acute) Respiratory insufficiency (Acute) SARS (severe acute respiratory syndrome) (Acute) Unable to eat (Acute) Subjective: Patient seen and examined. No active events overnight and showed no complaints. She still remains on the ventilator via the tracheostomy. FiO2 is down to 30%. She is now off Levophed. She is receiving tube feeding via the PEG tube. She is now out of Covid precautions. Vitals/I&O's: Vital Signs Temp Pulse Resp BP Pulse Ox 98.7 F 82 18 120/50 L 95 06/17/20 04:00 06/17/20 06:00 06/17/20 06:00 06/17/20 06:00 06/17/20 06:00 Oxygen Flow Rate (L/min) 6 Oxygen Delivery Method Mechanical Ventilator Weight: 163 lb 12.855 oz Body Mass Index (BMI) 27.1 Finger Stick Blood Glucose 377 Intake and Output for Last 24 Hours 06/15/20 06/16/20 06/17/20 23:59 23:59 23:59 Intake Total 1258.58 / 1284.86 1796.66 / 1872.14 605.29 / 605.29 Output Total 1170 / 1920 2049 / 2049 100 / 100 Balance 88.58 / -635.14 -253.34 / -177.86 505.29 / 505.29 General: Alert, Cooperative, No apparent distress, - - tracheostomy in place, sedated, RASS score is 0 HEENT: Atraumatic, PERRLA, EOMI, Normocephalic; tracheostomy in place Oral: Dry Mucosa Neck: Supple, No JVD, Negative Carotid Bruits Lungs: Clear to auscultation, Normal air movement, - - trach in place, connected to vent via trach. Cardiovascular: Regular rate, Regular Rhythm, Normal S1, Normal S2, No murmurs Abdomen: Bowel Sounds Present, Soft, Non Tender, Non-Distended, No Hepato- splenomegaly, PEG tube in place Extremities: No clubbing, No cyanosis, No edema, Capillary Refill Less than 3 Seconds Skin: No rashes, No breakdown Musculoskeletal: No Tenderness to Palpation of Joints or Extremities Lymphatic: No Cervical, Supraclavicular, or Inguinal Adenopathy Neurological: Cranial nerves II-XII grossly intact, Neuro grossly intact, - - intubated via tracheostomy, sedated, RASS score is 0 Psych/Mental Status: Normal Affect Microbiology Past 72 Hours 06/13/20 06:45 Sputum, Tracheal Aspirate Gram Stain - Final 06/13/20 06:45 Sputum, Tracheal Aspirate Respiratory Culture - Final Haemophilus influenzae Meth. resistant Staph. aureus 06/10/20 12:30 Blood Culture (Wb) - Left Wrist Blood Culture - Final No growth in 5 days. 06/10/20 06:55 Blood Culture (Wb) - Left Forearm Blood Culture - Final No growth in 5 days. Laboratory Results 06/16/20 11:12: POC Glucose 270 H 06/16/20 16:54: POC Glucose 288 H 06/16/20 23:35: POC Glucose 409 H 06/17/20 04:10: WBC 4.5, RBC 3.59 L, Hgb 10.0 L, Hct 32.0 L, MCV 89.1, MCH 27.9, MCHC 31.3 L, RDW Std Deviation 43.4, RDW Coeff of Osorio 13.4, Plt Count 174, MPV 11.3, Immature Gran % (Auto) 0.400, Neut % (Auto) 74.3 H, Lymph % (Auto) 18.9 L, [place] % (Auto) 6.0, Eos % (Auto) 0.0, Baso % (Auto) 0.4, Absolute Neuts (auto) 3.3, Absolute Lymphs (auto) 0.85, Nucleated RBC % 0 06/17/20 04:10: Sodium 142, Potassium 3.2 L, Chloride 109 H, Carbon Dioxide 27.0, Anion Gap 6, BUN 37 H, Creatinine 0.97, Estim Creat Clear Calc 59.66, Est GFR (MDRD) Af Amer 77, Est GFR (MDRD) Non-Af 64, BUN/Creatinine Ratio 38.1 H, Glucose 385 H, Calcium 8.5, Total Bilirubin 0.40, AST 20, ALT 40, Alkaline Phosphatase 78, Total Protein 6.5, Albumin 2.4 L, Globulin 4.1, Albumin/Globulin Ratio 0.6 L 06/17/20 05:43: POC Glucose 355 H 06/17/20 08:36: POC Glucose 347 H Current Medications Acetaminophen (Acetaminophen 650 Mg/20 Ml Udc) 650 mg GT Q6H PRN PRN PRN Reason: TEMP > 100.5 F Albuterol Sulfate (Albuterol Ih 8.5 Gm (Proair) Inhaler (200 Puffs)) 2 puff INHALATION Q4H PRN PRN PRN Reason: SOB/WHEEZING Albuterol Sulfate (Albuterol 2.5 Mg/3 Ml Vial.Neb.) 2.5 mg INHALATION Q2H PRN PRN PRN Reason: dyspnea, wheezing Last Admin: 05/31/20 07:45 Dose: 2.5 mg Documented by: Calamine/Phenol (Menthol/Lanolin/Calamine/Znox 113 Gm Tube) 1 applic TOPICAL BID [facility]; Protocol Last Admin: 06/17/20 08:29 Dose: 1 applicatio Documented by: Chlorhexidine Gluconate (Chlorhexidine 15 Ml) 15 ml PO BID [facility] [place] Last Admin: 06/17/20 08:29 Dose: 15 ml Documented by: Dextrose (Dextrose 50%-Water 25 Gm/50 Ml Disp.Syrin) 0 gm IV X1 PRN; Protocol PRN Reason: Hypoglycemia Enoxaparin Sodium (Enoxaparin 80 Mg/0.8 Ml Syringe) 80 mg SC Q12@0600,1800 [facility] [place] Last Admin: 06/17/20 05:45 Dose: 80 mg Documented by: Glucagon (Glucagon 1 Mg/Ml Syringe) 1 mg IM .X1 PRN PRN Reason: Hypoglycemia Hydrocortisone Sodium Succinate (Hydrocortisone Sod Succinate 100 Mg/2 Ml Vial) 100 mg IV Q8 [facility] [place] Last Admin: 06/17/20 05:45 Dose: 100 mg Documented by: Sodium Chloride () 250 mls @ 15 mls/hr IV .[id number] PRN PRN Reason: Saline Flush Last Infusion: 06/11/20 20:06 Dose: Infused Documented by: Sodium Chloride () 250 mls @ 15 mls/hr IV .[id number] PRN PRN Reason: Additional IVPB Infusion Vancomycin IV Pharmacy to Dose (1 ea/ Sodium Chloride) 500 mls @ 250 mls/hr IV X1 PRN; Protocol PRN Reason: Rx to Dose Piperacillin Sod/Tazobactam (Sod 3.375 gm/ Sodium Chloride) 50 mls @ 12.5 mls/hr IV Q8 [facility] [place] Stop: 06/19/20 22:01 Last Admin: 06/17/20 05:51 Dose: 12.5 mls/hr Documented by: Vancomycin HCl (Vancomycin) 1,000 mg in 200 mls @ 200 mls/hr IV Q12H [facility] [place] Last Infusion: 06/16/20 23:21 Dose: Infused Documented by: Enteral Nutritional Formula (Vital Af 1.2 Rick Liquid) 1,000 mls @ 60 mls/hr GT .[id number] [facility] [place] Last Admin: 06/17/20 03:09 Dose: Not Given Documented by: Insulin Glargine (Insulin Glargine 100 Units/Ml Pen) 25 units SC BID [facility] [place] Last Admin: 06/17/20 08:42 Dose: 25 u Documented by: Insulin Human Lispro (Insulin Lispro 100 Unit/Ml Insuln.Pen) 0 unit SC Q6H [facility] [place]; Protocol Last Admin: 06/17/20 05:44 Dose: 8 u Documented by: Lansoprazole (Lansoprazole 15 Mg Capsule.Dr) 30 mg NG BID [facility] [place] Last Admin: 06/17/20 08:35 Dose: 30 mg Documented by: Melatonin (Melatonin 3 Mg Tablet) 3 mg GT QHS PRN PRN PRN Reason: INSOMNIA Nystatin (Nystatin Powder 15gm Bottle) 1 applic TOPICAL BID [facility] [place]; Protocol Last Admin: 06/17/20 08:30 Dose: 1 applic Documented by: Ondansetron HCl (Ondansetron 4 Mg/2 Ml Vial) 4 mg IV Q8H PRN PRN PRN Reason: NAUSEA/VOMITING Last Admin: 06/16/20 23:06 Dose: 4 mg Documented by: Oxycodone HCl (Oxycodone 5 Mg Tablet) 5 - 10 mg PO Q6H PRN PRN PRN Reason: Pain Score 6-10 Last Admin: 06/16/20 14:31 Dose: 5 mg Documented by: Polyethylene Glycol (Polyethylene Glycol 3350 17 Gm Packet) 17 gm GT DAILY PRN PRN Reason: Constipation Potassium Chloride (Potassium Chl Soln 20 Meq/15 Ml Udc) 20 meq GT BID@1000,1700 [facility] [place] Last Admin: 06/17/20 08:34 Dose: 20 meq Documented by: Quetiapine Fumarate (Quetiapine 25 Mg Tablet) 50 mg GT BID [facility] [place] Last Admin: 06/17/20 08:35 Dose: 50 mg Documented by: Sodium Chloride (0.9% Saline Lock 10 Ml Syringe) 10 - 40 ml IV UD PRN PRN Reason: SALINE FLUSH Last Admin: 06/15/20 15:26 Dose: 20 ml Documented by: Medical Necessity - Tobacco Use Smoking Status: Former smoker Assessment/Plan All Active Problems (This Medical Record has been edited. Action required.) Pneumonia due to COVID-19 virus (Acute) Respiratory insufficiency (Acute) SARS (severe acute respiratory syndrome) (Acute) Unable to eat (Acute) #Acute hypoxic respiratory failure due to COVID 19 infection * s/p trachestomy and PEG tube placement. * fever has resolved. * on IV vancomycin and zosyn * still in cumulative positive balance by 9.23L * on IV lasix 80mg bid. * critical care on board. still on sedation with precedex and fentanyl. Having difficulty being weaned off the vent. * #Septic shock due to covid pneumonia * weaned off levophed. * completed a course of decadron and remdesivir * on IV vancomycin and zosyn' * respiratory culture grew MRSA and H Influenzaae * blood cultures negative * #Newly diagnosed type 2 diabetes mellitus * Currently on Lantus 10 units twice daily with insulin sliding scale. Accu-Cheks AC at bedtime. #hypokalemia: K is 3.2. will replace and monitor #GERD: On famotidine DVT prophylaxis: Lovenox 80 mg every 12 hours GI prophylaxis: On lansoprazole Inpatient E&M: [id number] [facility] Hosp L3
[2020-06-17] MEDS: Vancomycin IV 1,000 MG/200 ML BAG 200 MG IV ×2 (10:58→22:58)
[2020-06-17] MEDS: oxyCODONE 5 MG Tablet PO (11:02)
[2020-06-17 11:16] LABS: Bedside Glucose 416 mg/dL (70-110)
--- NOTE | 2020-06-17 11:35 | CASEMGMT ---
Addendum entered by Ivan Lord 06/17/20 15:01: ANNABELLE DUPREE Note: precert for LTACH is still pending insurance approval. Original Note: ANNABELLE DUPREE Note: Call to Marianne Blair [facility]. Insurance Precert is pending. Jimmy SHARP RN ACM
[2020-06-17] MEDS: Vital AF 1.2 Cal Liquid 1,000 ML 60 ML GT (12:01)
--- NOTE | 2020-06-17 15:53 | CASEMGMT ---
ANNABELLE DUPREE Note: received call from Marianne @ [facility]. Insurance approval was received, but no bed availability this afternoon. Updates will be sent in am for probable dc Sunday to [facility]. Jimmy SHARP RN ACM
[2020-06-17 16:51] LABS: Bedside Glucose 336 mg/dL (70-110)
[2020-06-17] MEDS: APIXABAN 5 MG TABLET PO (21:10)
[2020-06-17 23:18] LABS: Vancomycin, Trough Level 16.6 ug/mL (5.0-15.0)
[2020-06-17 23:21] LABS: Bedside Glucose 436 mg/dL (70-110)
--- NOTE | 2020-06-17 23:53 | PCM.RX.CS ---
Consult Pharmacy has been consulted to manage selected antiobiotic: Vancomycin Type of Consult: Follow-up Suspected Infection: Pneumonia Prior Doses of Antibiotics Received/Current Regimen: Medications Vancomycin HCl (Vancomycin) 1,000 mg in 200 mls @ 200 mls/hr IV Q12H OLLIE Last Admin: 06/17/20 22:58 Dose: 200 mls/hr Labs: Sodium 142 mmol/L (136-145) 06/17/20 04:10 Potassium 3.2 mmol/L (3.5-5.1) L 06/17/20 04:10 Chloride 109 mmol/L (98-107) H 06/17/20 04:10 Carbon Dioxide 27.0 mmol/L (21.0-32.0) 06/17/20 04:10 Anion Gap 6 (5-15) 06/17/20 04:10 BUN 37 mg/dL (7-18) H 06/17/20 04:10 Creatinine 0.97 mg/dL (0.55-1.02) 06/17/20 04:10 Est GFR (MDRD) Af Amer 77 mL/min (>60) 06/17/20 04:10 Est GFR (MDRD) Non-Af 64 mL/min (>60) 06/17/20 04:10 BUN/Creatinine Ratio 38.1 RATIO (10-20) H 06/17/20 04:10 Glucose 385 mg/dL (74-106) H 06/17/20 04:10 Vancomycin Trough 16.6 ug/mL (5.0-15.0) H 06/17/20 22:40 Random Vancomycin 11.1 ug/mL (0.0-15.0) 06/15/20 20:10 Microbiology: Microbiology 06/13/20 06:45 Sputum, Tracheal Aspirate Gram Stain - Final 06/13/20 06:45 Sputum, Tracheal Aspirate Respiratory Culture - Final Haemophilus influenzae Meth. resistant Staph. aureus 06/10/20 12:30 Blood Culture (Wb) - Left Wrist Blood Culture - Final No growth in 5 days. 06/10/20 06:55 Blood Culture (Wb) - Left Forearm Blood Culture - Final No growth in 5 days. 06/12/20 08:30 Stool C. difficile DNA Amplification - Final 06/10/20 11:30 Sputum, Induced/Lukens Gram Stain - Final 06/10/20 11:30 Sputum, Induced/Lukens Respiratory Culture - Final Meth. resistant Staph. aureus 06/10/20 07:00 Urine Catheter - Cuellar Urine Culture - Final Yeast, not Rand albicans 06/07/20 10:40 Sputum, Induced/Lukens Gram Stain - Final 06/07/20 10:40 Sputum, Induced/Lukens Respiratory Culture - Final Meth. resistant Staph. aureus 06/01/20 06:40 Sputum, Induced/Lukens Gram Stain - Final 06/01/20 06:40 Sputum, Induced/Lukens Respiratory Culture - Final Meth. resistant Staph. aureus 05/28/20 21:15 Sputum, Induced/Lukens Gram Stain - Final 05/28/20 21:15 Sputum, Induced/Lukens Respiratory Culture - Final 05/29/20 11:00 Urine Catheter - Cuellar Urine Culture - Final Presumptive E. coli 05/26/20 04:05 Blood Culture (Wb) - Right Hand Blood Culture - Final No growth in 5 days. 05/26/20 03:48 Blood Culture (Wb) - Anticubital Right Blood Culture - Final No growth in 5 days. Weight used for dosin.3 kg Estimated Creatinine Clearance: 59.7 Goal Trough: 15-20 mcg/mL Pharmacy Plan for Drug Dosing: Vancomycin trough level was again within range at 16.6. Will continue dosing at 1000mg q12h, and re-draw trough 06/21/20. Pharmacy Service will continue to monitor and adjust dosing as required. Follow-Up Labs: Trough Vancomycin Labs to be done on [date and time ordered]: 06/21/2020 @9030
[2020-06-18] VITALS (29 sets, daily range): BP systolic 108–169; BP diastolic 47–120; PULSE 81–124; RESP 13–35; TEMP 36.6–37.3; O2SAT 94–100
[2020-06-18 04:26] LABS: Absolute Lymphocyte Count 1.14 X10^3/uL (0.83-4.51); Absolute Neutrophil Count 3.2 X10^3/uL (2.0-7.7); Basophil# 0.03 X10^3/uL; Basophil% 0.6 % (0-1); Hematocrit 33.8 % (37-47); Hemoglobin 10.4 g/dL (12.0-15.0); Lymphocyte # 1.14 X10^3/ul (4.0); Lymphocyte % 24.2 % (19-41); Mean Corp Hgb Conc 30.8 g/dL (32-36); Mean Corpuscular Hgb 27.6 pg (27.0-32.0); Mean Corpuscular Volume 89.7 fL (81-99); Mean Platelet Vol. 11.9 fl (6.2-12.0); Monocyte# 0.26 X10^3/uL; Monocyte% 5.5 % (0-10); NRBC Flagged by Analyzer 0 % (0-5); Neutrophil # 3.24 X10^3/uL (2.7-7.7); Neutrophil % 68.9 % (47-70); Platelet Count 179 K/mm3 (150-450); RBC Distribution Width CV 13.7 % (11.6-14.6); Red Blood Count 3.77 M/mm3 (4.2-5.4); White Blood Count 4.7 K/mm3 (4.4-11.0)
[2020-06-18 04:46] LABS: ALB/GLOB Ratio 0.7 RATIO (0.9-2.4); AST(SGOT) 17 U/L (15-37); Alanine Aminotransfer ALT/SGPT 45 U/L (13-56); Albumin, Serum 2.6 g/dL (3.2-5.0); Alkaline Phosphatase 82 U/L (45-117); Anion Gap 7 (5-15); BUN 36 mg/dL (7-18); BUN/Creat Ratio 34.6 RATIO (10-20); Calcium,Total 8.8 mg/dL (8.5-10.1); Chloride 112 mmol/L (98-107); Creatinine, Serum 1.04 mg/dL (0.55-1.02); EST Glomerular Filtration Rate 59 mL/min (>60); Est Glom Filt Rate - Afr Amer 71 mL/min (>60); Estimated Creatinine Clearance 55.65 ml/min; Globulin 3.9 g/dL (2.2-4.2); Glucose 458 mg/dL (74-106); Protein, Total 6.5 g/dL (6.4-8.2); Sodium Level 146 mmol/L (136-145)
[2020-06-18] MEDS: Insulin Lispro 100 UNIT/ML INSULN.PEN SC ×3 (05:00→17:07)
[2020-06-18] MEDS: Hydrocortisone Sod Succinate 100 MG/2 ML Vial IV (05:00)
[2020-06-18] MEDS: Insulin Lispro 100 UNIT/ML INSULN.PEN 20 UNIT SC (06:07)
--- NOTE | 2020-06-18 07:34 | PN_ITS ---
Subjective: Patient did well overnight. Patient did not have any significant mucus plugging noted, but blood sugars have been elevated despite sliding scale and increase in Lantus yesterday. Patient states she feels body aches, but no significant pain. Patient has tolerated tube feeds. No interventions have been required for blood pressure. General: Alert, Oriented x3, Cooperative, No apparent distress - Good vent synchrony. HEENT: Atraumatic, PERRLA, EOMI, Normocephalic, - - No scleral icterus or in jection noted Oral: Moist Mucosa, No Gingival or Mucosal Lesions/ Ulcerations Neck: Supple, No JVD, No Nodes, Trachea Midline Lungs: No wheeze, No rales, Diminished, Rhonchi - Improved with suctioning Cardiovascular: Normal S1, Normal S2, No murmurs, No rub noted, No Gallop, Tachycardic Abdomen: Bowel Sounds Present, Soft, Obese, Tender - At PEG site, - - PEG is clean, dry and intact Extremities: No clubbing, No cyanosis, Edema - Trace lower extremity Skin: - - No change from previous Musculoskeletal: No Tenderness to Palpation of Joints or Extremities Lymphatic: No Cervical, Supraclavicular, or Inguinal Adenopathy Neurological: Cranial nerves II-XII grossly intact, Neuro grossly intact, Motor Exam 5/5 strength throughout Psych/Mental Status: Alert and oriented to time, place, person, mood and affect Vital Signs Temp Pulse Resp BP Pulse Ox 36.6 C 93 16 165/69 H 98 06/18/20 04:00 06/18/20 07:00 06/18/20 07:00 06/18/20 07:00 06/18/20 07:00 Oxygen Flow Rate (L/min) 6 Oxygen Delivery Method Mechanical Ventilator Weight: 72.9 kg Body Mass Index (BMI) 27.1 Finger Stick Blood Glucose 377 Intake and Output for Last 24 Hours 06/16/20 06/17/20 06/18/20 23:59 23:59 23:59 Intake Total 1796.66 / 1872.14 2163.29 / 2163.29 4111 / 4111 Output Total 2049 / 2049 1000 / 1000 300 / 300 Balance -253.34 / -177.86 1163.29 / 1163.29 3811 / 3811 Labs (Last 48 Hours) 06/16/20 06/16/20 06/16/20 11:12 16:54 23:35 WBC RBC Hgb Hct MCV MCH MCHC RDW Std Deviation RDW Coeff of Osorio Plt Count MPV Immature Gran % (Auto) Neut % (Auto) Lymph % (Auto) [place] % (Auto) Eos % (Auto) Baso % (Auto) Absolute Neuts (auto) Absolute Lymphs (auto) Nucleated RBC % Sodium Potassium Chloride Carbon Dioxide Anion Gap BUN Creatinine Estim Creat Clear Calc Est GFR (MDRD) Af Amer Est GFR (MDRD) Non-Af BUN/Creatinine Ratio Glucose Calcium Total Bilirubin AST ALT Alkaline Phosphatase Total Protein Albumin Globulin Albumin/Globulin Ratio Vancomycin Trough POC Glucose 270 H 288 H 409 H 06/17/20 06/17/20 06/17/20 04:10 04:10 05:43 WBC 4.5 RBC 3.59 L Hgb 10.0 L Hct 32.0 L MCV 89.1 MCH 27.9 MCHC 31.3 L RDW Std Deviation 43.4 RDW Coeff of Osorio 13.4 Plt Count 174 MPV 11.3 Immature Gran % (Auto) 0.400 Neut % (Auto) 74.3 H Lymph % (Auto) 18.9 L [place] % (Auto) 6.0 Eos % (Auto) 0.0 Baso % (Auto) 0.4 Absolute Neuts (auto) 3.3 Absolute Lymphs (auto) 0.85 Nucleated RBC % 0 Sodium 142 Potassium 3.2 L Chloride 109 H Carbon Dioxide 27.0 Anion Gap 6 BUN 37 H Creatinine 0.97 Estim Creat Clear Calc 59.66 Est GFR (MDRD) Af Amer 77 Est GFR (MDRD) Non-Af 64 BUN/Creatinine Ratio 38.1 H Glucose 385 H Calcium 8.5 Total Bilirubin 0.40 AST 20 ALT 40 Alkaline Phosphatase 78 Total Protein 6.5 Albumin 2.4 L Globulin 4.1 Albumin/Globulin Ratio 0.6 L Vancomycin Trough POC Glucose 355 H 06/17/20 06/17/20 06/17/20 08:36 11:06 16:48 WBC RBC Hgb Hct MCV MCH MCHC RDW Std Deviation RDW Coeff of Osorio Plt Count MPV Immature Gran % (Auto) Neut % (Auto) Lymph % (Auto) [place] % (Auto) Eos % (Auto) Baso % (Auto) Absolute Neuts (auto) Absolute Lymphs (auto) Nucleated RBC % Sodium Potassium Chloride Carbon Dioxide Anion Gap BUN Creatinine Estim Creat Clear Calc Est GFR (MDRD) Af Amer Est GFR (MDRD) Non-Af BUN/Creatinine Ratio Glucose Calcium Total Bilirubin AST ALT Alkaline Phosphatase Total Protein Albumin Globulin Albumin/Globulin Ratio Vancomycin Trough POC Glucose 347 H 416 H 336 H 06/17/20 06/17/20 06/18/20 22:40 23:10 04:15 WBC 4.7 RBC 3.77 L Hgb 10.4 L Hct 33.8 L MCV 89.7 MCH 27.6 MCHC 30.8 L RDW Std Deviation 44.0 H RDW Coeff of Osorio 13.7 Plt Count 179 MPV 11.9 Immature Gran % (Auto) 0.800 Neut % (Auto) 68.9 Lymph % (Auto) 24.2 [place] % (Auto) 5.5 Eos % (Auto) 0.0 Baso % (Auto) 0.6 Absolute Neuts (auto) 3.2 Absolute Lymphs (auto) 1.14 Nucleated RBC % 0 Sodium Potassium Chloride Carbon Dioxide Anion Gap BUN Creatinine Estim Creat Clear Calc Est GFR (MDRD) Af Amer Est GFR (MDRD) Non-Af BUN/Creatinine Ratio Glucose Calcium Total Bilirubin AST ALT Alkaline Phosphatase Total Protein Albumin Globulin Albumin/Globulin Ratio Vancomycin Trough 16.6 H POC Glucose 436 H 06/18/20 04:15 WBC RBC Hgb Hct MCV MCH MCHC RDW Std Deviation RDW Coeff of Osorio Plt Count MPV Immature Gran % (Auto) Neut % (Auto) Lymph % (Auto) [place] % (Auto) Eos % (Auto) Baso % (Auto) Absolute Neuts (auto) Absolute Lymphs (auto) Nucleated RBC % Sodium 146 H Potassium 3.0 L Chloride 112 H Carbon Dioxide 27.0 Anion Gap 7 BUN 36 H Creatinine 1.04 H Estim Creat Clear Calc 55.65 Est GFR (MDRD) Af Amer 71 Est GFR (MDRD) Non-Af 59 L BUN/Creatinine Ratio 34.6 H Glucose 458 H* Calcium 8.8 Total Bilirubin 0.50 AST 17 ALT 45 Alkaline Phosphatase 82 Total Protein 6.5 Albumin 2.6 L Globulin 3.9 Albumin/Globulin Ratio 0.7 L Vancomycin Trough POC Glucose Microbiology 06/13/20 06:45 Sputum, Tracheal Aspirate Gram Stain - Final 06/13/20 06:45 Sputum, Tracheal Aspirate Respiratory Culture - Final Haemophilus influenzae Meth. resistant Staph. aureus Medical Necessity - Tobacco Use Smoking Status: Former smoker Assessment/Plan All Active Problems (This Medical Record has been edited. Action required.) Pneumonia due to COVID-19 virus (Acute) Respiratory insufficiency (Acute) SARS (severe acute respiratory syndrome) (Acute) Unable to eat (Acute) RECOMMENDATIONS: 1. Antibiotics per infectious disease 2. Continue vent at current settings 3. Wean stress dose steroids 4. Continue diuretic regimen as tolerated by hemodynamics and renal function. 5. Increase sliding scale insulin 6. Continue scheduled Seroquel. 7. Continue tube feeds today 8. Okay for transition to LTAC based on availability IMPRESSIONS: 1. Acute hypoxemic respiratory failure secondary to COVID-19 pneumonia The patient continued to decompensate from a respiratory perspective following admission, eventually requiring ICU transfer and subsequent intubation on May 28. The patient has completed a treatment course of remdesivir and Decadron. The patient, to date, has failed 2 attempts at extubation. During her last attempt on 06/12, there was concern for an acute aspiration event. Infectious disease is following. Defer antibiotics to them. Patient has been doing okay. Patient does require suctioning secondary to mucous plugging. Patient tolerating tracheostomy well. 2. Septic shock/relative adrenal insufficiency Continue current supportive measures including vasopressor support to maintain a mean arterial pressure at or above 65 mmHg. Continue antimicrobials per ID recommendations. She continues to require significant pressors despite removal of propofol. Clinical suspicion for an element of adrenal insufficiency given protracted courses of Decadron. Will wean stress dose steroids. 3. Poorly controlled diabetes mellitus Reinitiated Lantus and sliding scale insulin coverage. Titrate up Lantus and weaning steroids should help with control. Insulin bolus given this morning. 4. ICU delirium Resolved. Continue Seroquel as ordered. 5. Obesity/GERD Complicates care, management, recovery and prognosis. Aggressive physical therapy is warranted. Inpatient E&M: [id number] [facility] L3
[2020-06-18] MEDS: Potassium Chloride 10mEq/100mL 10 MEQ/100 ML IV.SOLN. 100 MEQ IV BOLUS ×4 (08:38→13:01)
[2020-06-18] MEDS: oxyCODONE 5 MG Tablet PO ×3 (08:48→19:52)
[2020-06-18] MEDS: Lansoprazole 15 MG Capsule.DR 30 MG NG (08:49)
[2020-06-18] MEDS: Chlorhexidine 15 ML PO ×2 (08:50→19:54)
[2020-06-18] MEDS: APIXABAN 5 MG TABLET PO (08:50)
[2020-06-18] MEDS: QUEtiapine 25 MG Tablet 50 MG GT (08:50)
[2020-06-18] MEDS: Menthol/Lanolin/Calamine/Znox 113 GM Tube 1 APPLIC TOPICAL ×2 (08:51→20:09)
--- NOTE | 2020-06-18 09:20 | CASEMGMT ---
ANNABELLE DUPREE Note: updated clinical faxed to Marianne @ [facility]. Call to update. They will have meeting this am to discuss bed availability, then will call CM to update. would like an update on whether pt is to go today or not. Jimmy HERNANDEZN RN ACM
[2020-06-18 09:21] LABS: Bedside Glucose 238 mg/dL (70-110)
[2020-06-18] MEDS: Nystatin Powder 15gm Bottle 1 APPLIC TOPICAL ×2 (09:28→19:57)
[2020-06-18] MEDS: Vancomycin IV 1,000 MG/200 ML BAG 200 MG IV (09:50)
[2020-06-18 11:45] LABS: Bedside Glucose 253 mg/dL (70-110)
--- NOTE | 2020-06-18 13:12 | CASEMGMT ---
RN CM Note: call received from Marianne crandall for [facility]. The plan is for discharge later today to [facility]. They are currently working on discharging patients to have bed availability. Call to to update and he is agreeable to have Marianne call him for authorization to transfer to [facility]. --Nurse to Nurse Report #[phone] --Fax # for orders- [phone] --Carmen Crandall # if questions or issues: [phone]` -Dr. Paula britt. Jimmy HERNANDEZN RN ACM
--- NOTE | 2020-06-18 13:48 | TREXTCAR_ITS ---
- Diet 06/14/20 00:01 NPO [Diet: Nothing Per Oral] Is pt able to select menu?: No - Routine Orders/Code Status Enema Type: Fleetz Enema Frequency: Daily PRN Suppository Type: Dulcolax 10mg Suppository Frequency: Daily PRN Code Status: Full Code - Wound(s) right inner thigh Wound Type: Stasis Ulcer - Therapies Weight Bearing: Weight bearing as tolerated Physical Therapy: Eval and Treat Occupational Therapy: Eval and Treat - Allergies/Procedures Done in Hospital Allergies/Adverse Reactions: Allergies acetaminophen [From Vicodin] Allergy (Verified 05/26/20 03:39) Hives hydrocodone [From Vicodin] Allergy (Verified 05/26/20 03:39) Hives Procedures: None - Type of Care/Length of Stay Estimated LOS: More Than 30 Days Type of Care Needed: LTAC Rehab Potential: Fair Prognosis: Fair - Additional Orders/Day of Discharge Additional Orders: Vent settings: AC/VC, rate: 14 breaths/min, FiO2-30%, PEEP- 5cmH20. accuchecks q6 hourly. on insulin 40units bid. medium to high dose insulin sliding scale. Day of Discharge: 06/18/20 - Dietary and Speech Recommendations Dietitian Recommendations/Changes: Continue Vital AF 1.2 via PEG as tolerated. Goal rate is 60mL/hour w/ 75mL H2O flush every 4 hours to provide 1728 calories, 108 g protein, and 1617mL total fluid/day. - Follow Up Care Primary Care Physician: Rodolfo Velásquez MD [Primary Care Provider] - Please follow up with your Primary Care Physician in: 2-3 weeks Please Follow Up With: Andrea Peres MD When: 2-3 weeks Please Follow Up With: Adán Head MD When: 2-3 weeks
--- NOTE | 2020-06-18 14:52 | PCM.PN.ID ---
Patient Problems: Active and Suspected Problems (This Medical Record has been edited. Action required.) Pneumonia due to COVID-19 virus (Acute) Respiratory insufficiency (Acute) SARS (severe acute respiratory syndrome) (Acute) Unable to eat (Acute) Subjective: Feeling ok, transfer planned, no fever - Physical Exam Vitals/I&O's: Vital Signs Temp Pulse Resp BP Pulse Ox 98.1 F 98 26 H 136/56 H 99 06/18/20 08:00 06/18/20 14:00 06/18/20 14:00 06/18/20 11:00 06/18/20 14:00 Oxygen Flow Rate (L/min) 6 Oxygen Delivery Method Mechanical Ventilator Weight: 72.9 kg Body Mass Index (BMI) 27.1 Finger Stick Blood Glucose 377 Intake and Output for Last 24 Hours 06/16/20 06/17/20 06/18/20 23:59 23:59 23:59 Intake Total 1796.66 / 1872.14 2163.29 / 2163.29 4736 / 4736 Output Total 2049 / 2049 1000 / 1000 300 / 300 Balance -253.34 / -177.86 1163.29 / 1163.29 4436 / 4436 General: Alert, Cooperative, No apparent distress Lungs: Rhonchi - mild Cardiovascular: Regular rate, Regular Rhythm Abdomen: Soft, Non Tender, Non-Distended Skin: No rashes Microbiology Past 72 Hours 06/13/20 06:45 Sputum, Tracheal Aspirate Gram Stain - Final 06/13/20 06:45 Sputum, Tracheal Aspirate Respiratory Culture - Final Haemophilus influenzae Meth. resistant Staph. aureus 06/10/20 12:30 Blood Culture (Wb) - Left Wrist Blood Culture - Final No growth in 5 days. Laboratory Results 06/17/20 16:48: POC Glucose 336 H 06/17/20 22:40: Vancomycin Trough 16.6 H 06/17/20 23:10: POC Glucose 436 H 06/18/20 04:15: WBC 4.7, RBC 3.77 L, Hgb 10.4 L, Hct 33.8 L, MCV 89.7, MCH 27.6, MCHC 30.8 L, RDW Std Deviation 44.0 H, RDW Coeff of Osorio 13.7, Plt Count 179, MPV 11.9, Immature Gran % (Auto) 0.800, Neut % (Auto) 68.9, Lymph % (Auto) 24.2, [place] % (Auto) 5.5, Eos % (Auto) 0.0, Baso % (Auto) 0.6, Absolute Neuts (auto) 3.2, Absolute Lymphs (auto) 1.14, Nucleated RBC % 0 06/18/20 04:15: Sodium 146 H, Potassium 3.0 L, Chloride 112 H, Carbon Dioxide 27.0, Anion Gap 7, BUN 36 H, Creatinine 1.04 H, Estim Creat Clear Calc 55.65, Est GFR (MDRD) Af Amer 71, Est GFR (MDRD) Non-Af 59 L, BUN/Creatinine Ratio 34.6 H, Glucose 458 H*, Calcium 8.8, Total Bilirubin 0.50, AST 17, ALT 45, Alkaline Phosphatase 82, Total Protein 6.5, Albumin 2.6 L, Globulin 3.9, Albumin/Globulin Ratio 0.7 L 06/18/20 08:59: POC Glucose 238 H 06/18/20 11:37: POC Glucose 253 H Current Medications Acetaminophen (Acetaminophen 650 Mg/20 Ml Udc) 650 mg GT Q6H PRN PRN PRN Reason: TEMP > 100.5 F Albuterol Sulfate (Albuterol Ih 8.5 Gm (Proair) Inhaler (200 Puffs)) 2 puff INHALATION Q4H PRN PRN PRN Reason: SOB/WHEEZING Albuterol Sulfate (Albuterol 2.5 Mg/3 Ml Vial.Neb.) 2.5 mg INHALATION Q2H PRN PRN PRN Reason: dyspnea, wheezing Last Admin: 05/31/20 07:45 Dose: 2.5 mg Documented by: Apixaban (Apixaban 5 Mg Tablet) [address] [facility] Last Admin: 06/18/20 08:50 Dose: 5 mg Documented by: Calamine/Phenol (Menthol/Lanolin/Calamine/Znox 113 Gm Tube) [address] [facility]; Protocol Last Admin: 06/18/20 08:51 Dose: 1 applicatio Documented by: Chlorhexidine Gluconate (Chlorhexidine 15 Ml) [address] [facility] Last Admin: 06/18/20 08:50 Dose: 15 ml Documented by: Dextrose (Dextrose 50%-Water 25 Gm/50 Ml Disp.Syrin) 0 gm IV X1 PRN; Protocol PRN Reason: Hypoglycemia Glucagon (Glucagon 1 Mg/Ml Syringe) 1 mg IM .X1 PRN PRN Reason: Hypoglycemia Hydrocortisone Sodium Succinate (Hydrocortisone Sod Succinate 100 Mg/2 Ml Vial) [address] [facility] Sodium Chloride () 250 mls @ 15 mls/hr IV .[id number] PRN PRN Reason: Saline Flush Last Infusion: 06/11/20 20:06 Dose: Infused Documented by: Sodium Chloride () 250 mls @ 15 mls/hr IV .[id number] PRN PRN Reason: Additional IVPB Infusion Vancomycin IV Pharmacy to Dose (1 ea/ Sodium Chloride) 500 mls @ 250 mls/hr IV X1 PRN; Protocol PRN Reason: Rx to Dose Piperacillin Sod/Tazobactam (Sod 3.375 gm/ Sodium Chloride) 50 mls @ 12.5 mls/hr IV Q8 [facility] Stop: 06/19/20 22:01 Last Admin: 06/18/20 13:33 Dose: 12.5 mls/hr Documented by: Vancomycin HCl (Vancomycin) 1,000 mg in 200 mls @ 200 mls/hr IV Q12H [facility] Last Infusion: 06/18/20 11:13 Dose: Infused Documented by: Enteral Nutritional Formula (Vital Af 1.2 Rick Liquid) 1,000 mls @ 60 mls/hr GT .[id number] [facility] Last Admin: 06/17/20 12:01 Dose: 60 mls/hr Documented by: Insulin Glargine (Insulin Glargine 100 Units/Ml Pen) [address] [facility] Last Admin: 06/18/20 08:59 Dose: 40 u Documented by: Insulin Human Lispro (Insulin Lispro 100 Unit/Ml Insuln.Pen) [address] [facility]; Protocol Last Admin: 06/18/20 11:38 Dose: 4 u Documented by: Lansoprazole (Lansoprazole 15 Mg Capsule.) [address] [facility] Last Admin: 06/18/20 08:49 Dose: 30 mg Documented by: Melatonin (Melatonin 3 Mg Tablet) 3 mg GT QHS PRN PRN PRN Reason: INSOMNIA Nystatin (Nystatin Powder 15gm Bottle) [address] [facility]; Protocol Last Admin: 06/18/20 09:28 Dose: 1 applic Documented by: Ondansetron HCl (Ondansetron 4 Mg/2 Ml Vial) 4 mg IV Q8H PRN PRN PRN Reason: NAUSEA/VOMITING Last Admin: 06/16/20 23:06 Dose: 4 mg Documented by: Oxycodone HCl (Oxycodone 5 Mg Tablet) 5 - 10 mg PO Q6H PRN PRN PRN Reason: Pain Score 6-10 Last Admin: 06/18/20 13:32 Dose: 10 mg Documented by: Polyethylene Glycol (Polyethylene Glycol 3350 17 Gm Packet) 17 gm GT DAILY PRN PRN Reason: Constipation Potassium Chloride (Potassium Chl Soln 20 Meq/15 Ml Udc) 20 meq GT BID@1000,1700 [facility] Last Admin: 06/18/20 08:49 Dose: 20 meq Documented by: Quetiapine Fumarate (Quetiapine 25 Mg Tablet) [address] [facility] Last Admin: 06/18/20 08:50 Dose: 50 mg Documented by: Sodium Chloride (0.9% Saline Lock 10 Ml Syringe) 10 - 40 ml IV UD PRN PRN Reason: SALINE FLUSH Last Admin: 06/15/20 15:26 Dose: 20 ml Documented by: Medical Necessity - Tobacco Use Smoking Status: Former smoker Route of nutrition/ use of supplements: [] Nutritional Intake: [] IV Site: [] Cuellar Catheter: [] - Assessment/Plan Antibiotics: [] Assessment/Plan: [] Active and Suspected Problems (This Medical Record has been edited. Action required.) Pneumonia due to COVID-19 virus (Acute) Respiratory insufficiency (Acute) SARS (severe acute respiratory syndrome) (Acute) covid with hypoxia - sx start 05/19. Lactate over 2. D-dimer was 0.9, CT neg for PE, on lovenox 80mg bid. Off dex, completed remdesivir. Ucx with ecoli. Sputum with MRSA. 06/02 started vanc. Repeat sputum again with MRSA and haemophilus. On vanc/zosyn. Overall improved, trach in place. Ok to stop abx today prior to transfer to [facility]. Will follow, d/w primary team.
--- NOTE | 2020-06-18 15:08 | CASEMGMT ---
Addendum entered by Ivan Lord 06/18/20 16:00: Nursing updated re: transport and CM updating . They will update patient. No further questions. Jimmy SHAIKH Addendum entered by Ivan Lord 06/18/20 15:37: Per Marianne @ [facility], pt can come after a 7:30 slat pickler from [facility] to room 679 @ [facility]. Physician ambulance arranged for [facility] transport @ 1930. - updated with transfer time and room number. Jimmy SHAIKH Original Note: ANNABELLE DUPREE Note: orders faxed to Marianne @ [facility]. Call to update on order fax. She will contact ANNABELLE DUPREE with bed availability when able and if after 4 pm, will contact Corie Nurse on floor. Jimmy RIGGSM
[2020-06-18] MEDS: Albuterol 2.5 MG/3 ML VIAL.NEB. INHALATION (16:57)
[2020-06-18] MEDS: Ondansetron 4 MG/2 ML Vial IV (17:04)
[2020-06-18 17:15] LABS: Bedside Glucose 222 mg/dL (70-110)
--- NOTE | 2020-06-18 18:11 | NURSING ---
report called to [facility] [phone] still awaiting room number they will call back when room ready
[2020-06-18] MEDS: Vital AF 1.2 Cal Liquid 1,000 ML 60 ML GT (20:05)
--- NOTE | 2020-06-18 20:17 | PCM.DC.SUM ---
Discharge Date and Diagnosis - Problem List Patient Problems: Active and Suspected Problems (This Medical Record has been edited. Action required.) Pneumonia due to COVID-19 virus (Acute) Respiratory insufficiency (Acute) SARS (severe acute respiratory syndrome) (Acute) Unable to eat (Acute) Date of Admission: 05/26/20 Date of Discharge: 06/19/20 - Primary Discharge Diagnosis Acute Problems: Active Problems (This Medical Record has been edited. Action required.) Pneumonia due to COVID-19 virus (Acute) SARS (severe acute respiratory syndrome) (Acute) Unable to eat (Acute) acute hypoxic respiratory failure - Secondary Discharge Diagnosis Chronic Problems: Chronic Problems (This Medical Record has been edited. Action required.) GERD (gastroesophageal reflux disease) (Chronic) Hospital Course and Treatment Imaging Results: Diagnostic Data Chest CTA 05/26/20 04:23 IMPRESSION: No pulmonary embolus or thoracic aortic dissection. Diffuse groundglass opacities compatible with multifocal pneumonia very suggestive of viral pneumonia. Multiple small mediastinal lymph nodes. Electronically Signed: Forrest Cee MD at 5:18 EST , Service support , KUB X-Ray 06/12/20 20:05 IMPRESSION: Gastric tube with tip in the distal body of the stomach. Extensive lung disease. Electronically Signed: Verona Esparza, at 21:02 EST Tel , Service support , Chest X-Ray 06/14/20 15:15 IMPRESSION: Status post tracheostomy. The tip of the tracheostomy tube is at 5.1 cm proximal to the damon. There is no evidence of pneumothorax. Since prior study, there has been improved aeration of both lungs. Electronically Signed: Mauricio Sifuentes, at 15:32 EST , Service support , pulmonology- Dr Qiu infectious disease- Dr Head general surgery- Dr Mcelroy ENT- Dr Feroz Finney Procedures: Peg tube placement, - - tracheostomy Summary of Care Provided: The patient is a 55 year old F female with a past medical history as outlined was admitted through the ED on May 26, 2020 with a complaint of fever, chills, nausea and vomiting as well as malaise and loss of taste and smell. Symptoms had begun about 6 days prior to admission. 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 She had tested positive on May 22 for COVID-19 infection. On admission she was found to be afebrile and hypertensive and was initially saturating at night 83% on room air. Labs showed no leukocytosis and D-dimer was noted to be elevated at 0.91. Chemistry showed sodium of 125 and an chloride of 84 and lactic acid was elevated at 2.8. AST and ALT were also mildly increased and CT of the chest showed no evidence of PE but showed diffuse bilateral groundglass changes. She was admitted initially to the Covid unit and started on Decadron and remdesivir. Patient however gradually deteriorated and continued to have severe hypoxia after being transitioned to airflow. She was subsequently transferred to the ICU and had to be intubated on account of worsening respiratory status. She subsequently required vasopressors for hemodynamic support. Patient was subsequently extubated but had to be reintubated again on account of concerns of aspiration. Patient could not be weaned off the ventilator and eventually had to have a tracheostomy and PEG tube inserted. Sputum culture was positive for MRSA and urine culture was also positive for E. coli so she was put on the appropriate antimicrobials. Based on her infection, she was also diagnosed with septic shock as she was requiring vasopressors. Patient was eventually weaned off of the Levophed. ID, general surgeon ENT were consulted during her complicated medical course. Sputum culture subsequently grew H. influenzae and MRSA. Blood cultures were negative. Of note, during patient's admission her A1c was 10.8 and so she was put on Lantus. She was also put on tube feeding via the PEG tube and she had a trach in place. Patient completed an antibiotic course of IV vancomycin and Zosyn and also completed a course of Decadron and remdesivir and also required stress dose steroids. She was discharged to a long-term acute care facility on 06/18/2020. Patient was to be weaned gradually off stress dose steroids in the LTAC. She was also discharged with GT Eliquis 2.5 mg twice daily for 2 weeks on account of elevated D-dimer. She is to follow-up with her primary care doctor, factious diseases and pulmonology. Patient was seen and examined prior to discharge. She was on the vent via the trach and also the PEG tube in place. She was lying quietly in bed and had no complaints. Review systems otherwise negative. She was off sedatives and off Levophed. Labs and vitals reviewed. Home medication reviewed and reconciled. O/E: Vital Signs Temp Pulse Resp BP Pulse Ox 98 F 120 H 15 137/102 H 94 06/18/20 19:00 06/18/20 21:00 06/18/20 21:00 06/18/20 21:00 06/18/20 21:00 [] General: Alert, Cooperative, No apparent distress, - - tracheostomy in place, RASS score is 0 HEENT: Atraumatic, PERRLA, EOMI, Normocephalic; tracheostomy in place Oral: Dry Mucosa Neck: Supple, No JVD, Negative Carotid Bruits Lungs: Clear to auscultation, Normal air movement, - - trach in place, connected to vent via trach. Cardiovascular: Regular rate, Regular Rhythm, Normal S1, Normal S2, No murmurs Abdomen: Bowel Sounds Present, Soft, Non Tender, Non-Distended, No Hepato-splenomegaly, PEG tube in place Extremities: No clubbing, No cyanosis, No edema, Capillary Refill Less than 3 Seconds Skin: No rashes, No breakdown Musculoskeletal: No Tenderness to Palpation of Joints or Extremities Lymphatic: No Cervical, Supraclavicular, or Inguinal Adenopathy Neurological: Cranial nerves II-XII grossly intact, Neuro grossly intact, - - intubated via tracheostomy, RASS score is 0 Psych/Mental Status: Normal Affect Plan is for discharge to LTAC. Patient Problems: Active and Suspected Problems (This Medical Record has been edited. Action required.) Pneumonia due to COVID-19 virus (Acute) Respiratory insufficiency (Acute) SARS (severe acute respiratory syndrome) (Acute) Unable to eat (Acute) - Physical Exam Vitals/I&O's: Vital Signs Temp Pulse Resp BP Pulse Ox 99.1 F 124 H 28 H 146/69 H 94 06/18/20 18:00 06/18/20 19:23 06/18/20 19:23 06/18/20 18:00 06/18/20 19:23 Oxygen Flow Rate (L/min) 6 Oxygen Delivery Method Mechanical Ventilator Weight: 160 lb 11.472 oz Body Mass Index (BMI) 27.1 Finger Stick Blood Glucose 377 Intake and Output for Last 24 Hours 06/16/20 06/17/20 06/18/20 23:59 23:59 23:59 Intake Total 1796.66 / 1872.14 2163.29 / 2163.29 5036 / 5036 Output Total 2049 / 2049 1000 / 1000 400 / 400 Balance -253.34 / -177.86 1163.29 / 1163.29 4636 / 4636 Microbiology Past 72 Hours 06/13/20 06:45 Sputum, Tracheal Aspirate Gram Stain - Final 06/13/20 06:45 Sputum, Tracheal Aspirate Respiratory Culture - Final Haemophilus influenzae Meth. resistant Staph. aureus Laboratory Results 06/17/20 22:40: Vancomycin Trough 16.6 H 06/17/20 23:10: POC Glucose 436 H 06/18/20 04:15: WBC 4.7, RBC 3.77 L, Hgb 10.4 L, Hct 33.8 L, MCV 89.7, MCH 27.6, MCHC 30.8 L, RDW Std Deviation 44.0 H, RDW Coeff of Osorio 13.7, Plt Count 179, MPV 11.9, Immature Gran % (Auto) 0.800, Neut % (Auto) 68.9, Lymph % (Auto) 24.2, [place] % (Auto) 5.5, Eos % (Auto) 0.0, Baso % (Auto) 0.6, Absolute Neuts (auto) 3.2, Absolute Lymphs (auto) 1.14, Nucleated RBC % 0 06/18/20 04:15: Sodium 146 H, Potassium 3.0 L, Chloride 112 H, Carbon Dioxide 27.0, Anion Gap 7, BUN 36 H, Creatinine 1.04 H, Estim Creat Clear Calc 55.65, Est GFR (MDRD) Af Amer 71, Est GFR (MDRD) Non-Af 59 L, BUN/Creatinine Ratio 34.6 H, Glucose 458 H*, Calcium 8.8, Total Bilirubin 0.50, AST 17, ALT 45, Alkaline Phosphatase 82, Total Protein 6.5, Albumin 2.6 L, Globulin 3.9, Albumin/Globulin Ratio 0.7 L 06/18/20 08:59: POC Glucose 238 H 06/18/20 11:37: POC Glucose 253 H 06/18/20 17:04: POC Glucose 222 H Current Medications Acetaminophen (Acetaminophen 650 Mg/20 Ml Udc) 650 mg GT Q6H PRN PRN PRN Reason: TEMP > 100.5 F Albuterol Sulfate (Albuterol Ih 8.5 Gm (Proair) Inhaler (200 Puffs)) 2 puff INHALATION Q4H PRN PRN PRN Reason: SOB/WHEEZING Albuterol Sulfate (Albuterol 2.5 Mg/3 Ml Vial.Neb.) 2.5 mg INHALATION Q2H PRN PRN PRN Reason: dyspnea, wheezing Last Admin: 06/18/20 16:57 Dose: 2.5 mg Documented by: Apixaban (Apixaban 5 Mg Tablet) 5 mg PO BID [facility] Last Admin: 06/18/20 08:50 Dose: 5 mg Documented by: Calamine/Phenol (Menthol/Lanolin/Calamine/Znox 113 Gm Tube) 1 applic TOPICAL BID [facility]; Protocol Last Admin: 06/18/20 20:09 Dose: 1 applicatio Documented by: Chlorhexidine Gluconate (Chlorhexidine 15 Ml) 15 ml PO BID [facility] Last Admin: 06/18/20 19:54 Dose: 15 ml Documented by: Dextrose (Dextrose 50%-Water 25 Gm/50 Ml Disp.Syrin) 0 gm IV X1 PRN; Protocol PRN Reason: Hypoglycemia Glucagon (Glucagon 1 Mg/Ml Syringe) 1 mg IM .X1 PRN PRN Reason: Hypoglycemia Hydrocortisone Sodium Succinate (Hydrocortisone Sod Succinate 100 Mg/2 Ml Vial) 50 mg IV Q8 [facility] Last Admin: 06/18/20 14:00 Dose: Not Given Documented by: Sodium Chloride () 250 mls @ 15 mls/hr IV .[id number] PRN PRN Reason: Saline Flush Last Infusion: 06/11/20 20:06 Dose: Infused Documented by: Sodium Chloride () 250 mls @ 15 mls/hr IV .[id number] PRN PRN Reason: Additional IVPB Infusion Vancomycin IV Pharmacy to Dose (1 ea/ Sodium Chloride) 500 mls @ 250 mls/hr IV X1 PRN; Protocol PRN Reason: Rx to Dose Piperacillin Sod/Tazobactam (Sod 3.375 gm/ Sodium Chloride) 50 mls @ 12.5 mls/hr IV Q8 [facility] Stop: 06/19/20 22:01 Last Infusion: 06/18/20 19:36 Dose: Infused Documented by: Vancomycin HCl (Vancomycin) 1,000 mg in 200 mls @ 200 mls/hr IV Q12H [facility] Last Infusion: 06/18/20 11:13 Dose: Infused Documented by: Enteral Nutritional Formula (Vital Af 1.2 Rick Liquid) 1,000 mls @ 60 mls/hr GT .[id number] [facility] Last Admin: 06/18/20 20:05 Dose: 60 mls/hr Documented by: Insulin Glargine (Insulin Glargine 100 Units/Ml Pen) 40 units SC BID [facility] Last Admin: 06/18/20 08:59 Dose: 40 u Documented by: Insulin Human Lispro (Insulin Lispro 100 Unit/Ml Insuln.Pen) 0 unit SC Q6H [facility]; Protocol Last Admin: 06/18/20 17:07 Dose: 4 u Documented by: Lansoprazole (Lansoprazole 15 Mg Capsule.Dr) 30 mg NG BID [facility] Last Admin: 06/18/20 08:49 Dose: 30 mg Documented by: Melatonin (Melatonin 3 Mg Tablet) 3 mg GT QHS PRN PRN PRN Reason: INSOMNIA Nystatin (Nystatin Powder 15gm Bottle) 1 applic TOPICAL BID [facility]; Protocol Last Admin: 06/18/20 19:57 Dose: 1 applic Documented by: Ondansetron HCl (Ondansetron 4 Mg/2 Ml Vial) 4 mg IV Q8H PRN PRN PRN Reason: NAUSEA/VOMITING Last Admin: 06/18/20 17:04 Dose: 4 mg Documented by: Oxycodone HCl (Oxycodone 5 Mg Tablet) 5 - 10 mg PO Q6H PRN PRN PRN Reason: Pain Score 6-10 Last Admin: 06/18/20 19:52 Dose: 10 mg Documented by: Polyethylene Glycol (Polyethylene Glycol 3350 17 Gm Packet) 17 gm GT DAILY PRN PRN Reason: Constipation Potassium Chloride (Potassium Chl Soln 20 Meq/15 Ml Udc) 20 meq GT BID@1000,1700 [facility] Last Admin: 06/18/20 17:11 Dose: 20 meq Documented by: Quetiapine Fumarate (Quetiapine 25 Mg Tablet) 50 mg GT BID [facility] Last Admin: 06/18/20 08:50 Dose: 50 mg Documented by: Sodium Chloride (0.9% Saline Lock 10 Ml Syringe) 10 - 40 ml IV UD PRN PRN Reason: SALINE FLUSH Last Admin: 06/15/20 15:26 Dose: 20 ml Documented by: Discharge Diet: - - tube feeds as per composition floor layer instruction Home Medications: Medications to take at Discharge Apixaban [Eliquis] 2.5 mg PO BID #28 tab 06/18/20 Insulin Glargine [Lantus SoloStar Pen] 40 units SC BID pen 06/18/20 Quetiapine Fumarate [Seroquel] 50 mg GT BID #0 tab 06/18/20 Following Prescriptions Were Given to Patient: Apixaban [Eliquis] 2.5 mg PO BID #28 tab Prescription Printed Primary Care Physician: Rodolfo Velásquez MD [Primary Care Provider] - Please follow up with your Primary Care Physician in: 2-3 weeks Please Follow Up With: Andrea Peres MD When: 2-3 weeks Please Follow Up With: Adán Head MD When: 2-3 weeks Disposition: [facility] Acute [facility] Minutes spent on discharge:: 50 Patient Condition:: Fair Medical Necessity - Tobacco Use Smoking Status: Former smoker Meaningful Use Info Meaningful Use Diagnoses (Choose all that apply): None applicable Inpatient E&M: 15501 Disch Hosp
--- NOTE | 2020-06-18 21:24 | NURSING ---
pt transfered to [facility], report given to ambulance and receiving facility
== END 2020-06-18 21:25 | DRG 4 ==
LOC: ED 05:22 → MS2 05:52 → ICU 05-28 06:01
PROVIDERS: Family Medicine; Internal Medicine; Internal Medicine Critical Care Medicine; Internal Medicine Infectious Disease; Otolaryngology; Surgery; Admitting Provider Hospitalist; Emergency Provider Emergency Medicine; PCP Family Medicine; Visit Provider Student in an Organized Health Care Education/Training Program
PROC: 0B110F4 Bypass Trachea to Cutaneous with Tracheostomy Device, Open Approach (ICD-10-PCS; principal; 2020-06-14 11:40)
PROC: 0DJ08ZZ Inspection of Upper Intestinal Tract, Via Natural or Artificial Opening Endoscopic (ICD-10-PCS; CPT 43235; principal; 2020-06-15 11:55)
DX: U07.1 COVID-19 (principal); J12.82 Pneumonia due to coronavirus disease 2019; J96.01 Acute respiratory failure with hypoxia; N17.0 Acute kidney failure with tubular necrosis; A41.9 Sepsis, unspecified organism; R65.21 Severe sepsis with septic shock; J15.212 Pneumonia due to Methicillin resistant Staphylococcus aureus; A41.89 Other specified sepsis; J81.0 Acute pulmonary edema; J69.0 Pneumonitis due to inhalation of food and vomit; E87.1 Hypo-osmolality and hyponatremia; E87.2 Acidosis; N39.0 Urinary tract infection, site not specified; E27.40 Unspecified adrenocortical insufficiency; Z87.891 Personal history of nicotine dependence; K25.9 Gastric ulcer, unspecified as acute or chronic, without hemorrhage or perforation; K21.9 Gastro-esophageal reflux disease without esophagitis; R74.8 Abnormal levels of other serum enzymes; E11.65 Type 2 diabetes mellitus with hyperglycemia; R74.01 Elevation of levels of liver transaminase levels; E66.9 Obesity, unspecified; Z68.31 Body mass index [BMI] 31.0-31.9, adult; T42.75XA Adverse effect of unspecified antiepileptic and sedative-hypnotic drugs, initial encounter; E87.6 Hypokalemia; B96.20 Unspecified Escherichia coli [E. coli] as the cause of diseases classified elsewhere; Y95 Nosocomial condition; R45.1 Restlessness and agitation
CPT/HCPCS: 31500; 31720; 36415; 36569; 36600; 71045; 71275; 74018; 80048; 80053; 80061; 80076; 80202; 82248; 82550; 82803; 82962; 83036; 83605; 83735; 83880; 84100; 84145; 84478; 84484; 85025; 85027; 85379; 85610; 87040; 87070; 87077; 87086; 87088; 87186; 87205; 87493; 92507; 92526; 92610; 93005; 94002; 94003; 94640; 94660; 97110; 97116; 97162; 97165; 97530; 97535; 97802; 97803; 99251; 99285; J2997; J7040; J7050; J7120; Q9967; A4216; G0463; J0330; J1940; J2405; J3010; J3490